=== PATIENT | male | born 1940 | race Caucasian/White ===

== ENCOUNTER 2016-03-17 00:38 | Inpatient (IN) | payer MEDICARE ==
[2016-03-17] MEDS ORDERED: PROPOFOL 100 ML IV PRN (00:42)
[2016-03-17] MEDS ORDERED: METHYLPREDNISOLONE INJ 125 MG/2 ML SDV IV ONE (00:42)
[2016-03-17] MEDS ORDERED: ALBUTEROL SULFATE 0.083% NEB 2.5 MG/3 ML AMPUL NEB ONE (00:43)
[2016-03-17] MEDS ORDERED: MAGNESIUM SULFATE/D5W 100 ML IV SCH (00:45)
[2016-03-17] MEDS ORDERED: PROPOFOL 100 ML IV ONE (00:45)
--- NOTE | 2016-03-17 00:53 | ER Document Report ---
ED General - General Stated Complaint: POST ARREST Notes: Patient is a 75 year old male who presents with complaint of possible cardiac arrest. Then he says that he was having some difficulty breathing. He then passed out and the chair. He then turned blue. Paramedics arrived. His pulse was very weak. He said at times it was not clear if he had just a very weak pulse or did not have a pulse. They therefore started CPR and started to oxygenate him. No epinephrine was given. Pulses regained after oxygenation and CPR. CPR was stopped. Patient was then intubated. Patient was given succinylcholine, Rocuronium, and ketamine for intubation. Family says that he had pneumonia 2 months ago. She's been having intermittent difficulty breathing. They said that: A once a week ago and he received a breathing treatment. He refused to come to loss. That time. He still smokes on occasion. He is on Eliquis. Family is unsure exactly why he is on Eliquis. He does have a pacemaker. Paramedics said that after they regained strong pulses he did have some purposeful movement. TRAVEL OUTSIDE OF THE [place] IN LAST 30 DAYS: No - Related Data Allergies/Adverse Reactions: lorazepam [From Ativan] Adverse Reaction (Verified 05/22/15 20:52) Past Medical History - Social History Smoking Status: Current Some Day Smoker Frequency of alcohol use: None Drug Abuse: None Family History: Reviewed & Not Pertinent - Past Medical History Cardiac Medical History: Reports: Hx Atrial Fibrillation, Hx Congestive Heart Failure, Hx Coronary Artery Disease, Hx Hypercholesterolemia, Hx Hypertension Denies: Hx Heart Attack, Hx Peripheral Vascular Disease, Hx Pulmonary Embolism, Hx Heart Murmur Pulmonary Medical History: Reports: Hx Bronchitis, Hx COPD - COPD, Hx Pneumonia Denies: Hx Asthma, Hx Respiratory Failure, Hx Sleep Apnea, Hx Tuberculosis Neurological Medical History: Reports: Hx Seizures - Last time 3 to 4 yrs ago. Denies: Hx Cerebrovascular Accident Endocrine Medical History: Reports: Hx Diabetes Mellitus Type 2 Renal/ Medical History: Reports: Hx Benign Prostatic Hyperplasia Malignancy Medical History: Denies Hx Lung Cancer GI Medical History: Reports: Hx Ulcer - age 30. Denies: Hx Crohn's Disease, Hx Gastroesophageal Reflux Disease, Hx Hiatal Hernia, Hx Irritable Bowel, Hx Liver Failure Musculoskeltal Medical History: Reports Hx Arthritis - All over, Denies Hx Fibromyalgia, Denies Hx Multiple Sclerosis, Denies Hx Muscular Dystrophy Psychiatric Medical History: Denies: Hx Bipolar Disorder, Hx Dementia, Hx Depression, Hx Post Traumatic Stress Disorder, Hx Schizophrenia Traumatic Medical History: Denies: Hx Fractures Infectious Medical History: Denies: Hx HIV Past Surgical History: Reports: Hx Adenoidectomy, Hx Cardiac Surgery - pacemaker defibulator, Hx Internal Defibrillator, Hx Orthopedic Surgery - right knee, left hip, Hx Pacemaker - See Pacemaker Checklist, Hx Tonsillectomy. Denies: Hx Appendectomy, Hx Bowel Surgery, Hx Cholecystectomy, Hx Colostomy, Hx Coronary Artery Bypass Graft, Hx Gastric Bypass Surgery, Hx Herniorrhaphy - Immunizations Hx Diphtheria, Pertussis, Tetanus Vaccination: No Hx Pneumococcal Vaccination: 11/22/14 Review of Systems - Review of Systems -: Yes ROS unobtainable due to patient's medical condition - Review systems is very limited due to patient being unresponsive Physical Exam - Vital signs Vitals: Pulse Ox 100 03/17/16 00:40 - Notes Notes: General Appearance: Well nourished, sedated and intubated. Vitals: reviewed, See vital signs table. Head: no swelling or tenderness to the head Eyes: PERRL, EOMI, Conjuctiva clear. Mouth: ET tube and oropharynx. Neck: Supple, no neck tenderness, No thyromegaly Lungs: Diffuse wheezing. Fair to poor air exchange. Heart: Tachycardic rate, Regular rythm, No murmur, no rub Abdomen: No abdominal distention or swelling. Extremities: good pulses in all extremities, no swelling or tenderness in the extremities, 1-2+ edema in bilateral lower extremities Skin: warm, dry, appropriate color, no rash Neuro: Patient sedated and recently paralyzed. Neuro exam is limited because of this. Pupils are equal and reactive to light. Course - Re-evaluation Re-evalutation: 03/17/16 00:56 Patient is initially hypotensive. Currently unresponsive but was recent paralyzed part around him so this is not surprising. I did propofol ordered but we will hold until blood pressures improved. I will give patient IV fluids. If his blood pressure does not improve with IV fluids than I will place central line and start on pressors. - Vital Signs Vital signs: Temp Pulse Resp BP Pulse Ox 95.2 F L 14 92/74 L 97 03/17/16 02:41 03/17/16 02:41 03/17/16 02:41 03/17/16 02:41 - Laboratory Result Diagrams: 03/17/16 00:45 03/17/16 00:45 Laboratory results interpreted by me: 03/17/16 03/17/16 03/17/16 00:45 00:45 00:45 RBC 4.19 L Hgb 12.6 L RDW 15.3 H Seg Neutrophils % 84.7 H Lymphocytes % 5.9 L Absolute Lymphocytes 0.4 L Carbonic Acid ABG pH ABG pCO2 ABG pO2 ABG HCO3 ABG Total CO2 ABG O2 Saturation Sodium 135.7 L Chloride 94 L BUN 40 H Glucose 172 H Calcium 8.1 L Total Bilirubin 1.7 H Alkaline Phosphatase 137 H CK-MB (CK-2) 4.87 H NT-Pro-B Natriuret Pep 6350 H Total Protein 5.9 L Albumin 3.1 L Urine Protein Urine Blood 03/17/16 03/17/16 00:45 01:30 RBC Hgb RDW Seg Neutrophils % Lymphocytes % Absolute Lymphocytes Carbonic Acid 2.43 H ABG pH 7.18 L* ABG pCO2 80.6 H* ABG pO2 421.1 H ABG HCO3 29.5 H ABG Total CO2 32.0 H ABG O2 Saturation 99.7 H Sodium Chloride BUN Glucose Calcium Total Bilirubin Alkaline Phosphatase CK-MB (CK-2) NT-Pro-B Natriuret Pep Total Protein Albumin Urine Protein 30 H Urine Blood LARGE H - EKG Interpretation by Me Additional EKG results interpreted by me: 03/17/16 01:29 EKG is reviewed and interpreted by me. EKG shows paced rhythm with rate of [address] segment changes. QS duration QTC intervals are prolonged. Old EKG from 05/22/2015. - Transfer of Care Notes: 03/17/16 04:56 These unlikely the patient completely lost pulses being that patient regained strong pulses after just mental ventilation and CPR. There is no epinephrine given. Senses the patient was going into respiratory arrest and was very hypoxic and probably had very weak pulses from that. She's on arrival did have tight and wheezing lungs. He still has some wheezing in his lungs but his lung auscultation is gradually improving. His blood pressure was initially hypotensive. He did receive 3 L of fluids. His blood pressure now has been in the upper 90s to low 100 systolic. I did speak with the hospitalist request a central line placement. I did place a central line. Family was initially bedside but then left. There is no one to consent for central line and therefore I and the nurse cosigned his consent as emergent informed consent being that the patient does require further vascular access and most likely will need pressors being that his blood pressure still very borderline and we will have to start him on sedation because he started to wake up. The sedation was likely will start to drop his blood pressure and therefore we need access to be able start pressors when that most likely does occur. Dictation of this chart was performed using voice recognition software; therefore, there may be some unintended grammatical errors. Procedures - Central Line Right Internal jugular Consent obtained: Yes - INformed consent. No family currently present Central line pre-insertion: Chloraprep applied Central line lumen type: Triple Ultrasound guided: Yes CM at insertion site: 15 Line secured with sutures: Yes Central line post-insertion: Blood return from lumens, Biopatch applied, Sutured , Sterile dressing applied, Position confirmed w/ CXR Number of attempts: 1 Complications: No Notes: 03/17/16 04:56 Line placed under ultrasound guidance. Critical Care Note - Critical Care Note Total time excluding time spent on procedures (mins): 45 Comments: Critical care time spent on this patient is approximately 45 minutes due to frequent evaluations, discussion with hospice, discussions with family, management of sedation, management of blood pressure. This does not include time spent on procedures. Discharge - Discharge Clinical Impression: Respiratory arrest, COPD exacerbation, Hypotension Disposition: ADMITTED INPATIENT Admitting Provider: Hospitalist Unit Admitted: ICU
[2016-03-17 01:06] LABS: ABSOLUTE EOSINOPHILS # (AUTO) 0.1 10^3/uL (0.0-0.6); ABSOLUTE LYMPHOCYTES (AUTO) 0.4 10^3/uL (0.5-4.7); ABSOLUTE MONOCYTES (AUTO) 0.4 10^3/uL (0.1-1.4); ABSOLUTE NEUT (AUTO) 5.4 10^3/uL (1.7-8.2); ARTERIAL BLOOD BASE EXCESS -0.9 mmol/L; ARTERIAL BLOOD O2 SATURATION 99.7 % (94-98); BASOPHILS % (AUTO) 0.7 % (0-2); EOSINOPHILS % (AUTO) 1.9 % (0-6); HEMATOCRIT 39.4 % (37.9-51.0); HEMOGLOBIN 12.6 g/dL (13.5-17.0); HGB HCT DIFFERENCE -1.6; LYMPHOCYTES % (AUTO) 5.9 % (13-45); MEAN CORPUSCULAR HEMOGLOBIN 30.1 pg (27.0-33.4); MEAN CORPUSCULAR HGB CONC 32.1 g/dL (32.0-36.0); MEAN CORPUSCULAR VOLUME 94 fl (80-97); MONOCYTES % (AUTO) 6.8 % (3-13); RED BLOOD COUNT 4.19 10^6/uL (4.35-5.55); RED CELL DISTRIBUTION WIDTH 15.3 % (11.5-14.0); SEGMENTED NEUTROPHILS % (AUTO) 84.7 % (42-78); WHITE BLOOD COUNT 6.4 10^3/uL (4.0-10.5)
[2016-03-17] MEDS: NORMAL SALINE 1000 ML 1,000 ML IV PRN ×2 (01:15→06:50)
[2016-03-17 01:20] LABS: ALANINE AMINOTRANSFERASE 29 U/L (21-72); ALBUMIN 3.1 g/dL (3.5-5.0); ALKALINE PHOSPHATASE 137 U/L (38-126); ANION GAP 12 (5-19); ASPARTATE AMINO TRANSFERASE 31 U/L (17-59); BILIRUBIN,TOTAL 1.7 mg/dL (0.2-1.3); BLOOD UREA NITROGEN 40 mg/dL (7-20); CALCIUM 8.1 mg/dL (8.4-10.2); CARBON DIOXIDE 30 mmol/L (22-30); CHLORIDE 94 mmol/L (98-107); CREATINE KINASE 104 U/L (55-170); CREATININE RESULT 1.12 mg/dL (0.52-1.25); GLUCOSE 172 mg/dL (75-110); POTASSIUM 4.7 mmol/L (3.6-5.0); SODIUM 135.7 mmol/L (137-145); TOTAL PROTEIN 5.9 g/dL (6.3-8.2)
[2016-03-17 01:33] LABS: CREATINE KINASE MB 4.87 ng/mL (<4.55)
[2016-03-17 01:38] LABS: TROPONIN I 0.04 ng/mL
[2016-03-17 01:59] LABS: APPEARANCE,URINE SLIGHTLY-CLOUDY; BILIRUBIN,URINE NEGATIVE (NEGATIVE); GLUCOSE, URINE NEGATIVE (NEGATIVE); KETONES,URINE NEGATIVE (NEGATIVE); LEUKOCYTE ESTERASE,URINE NEGATIVE (NEGATIVE); NITRITE,URINE NEGATIVE (NEGATIVE); PROTEIN,URINE 30 mg/dL (NEGATIVE); URINE SPECIFIC GRAVITY 1.011; UROBILINOGEN,URINE NEGATIVE mg/dL (<2.0)
[2016-03-17 05:12] LABS: ARTERIAL BLOOD BASE EXCESS -1.9 mmol/L; ARTERIAL BLOOD O2 SATURATION 87.9 % (94-98)
[2016-03-17] MEDS ORDERED: ACETAMINOPHEN 325 MG TABLET NG PRN (05:22)
[2016-03-17] MEDS ORDERED: IPRATROPIUM/ALBUTEROL 0.5-2.5 MG/3 ML AMPUL NEB ONE ×2 (05:28→05:30)
[2016-03-17] MEDS ORDERED: DEXTROSE 5%-WATER 250 ML with PHENYLEPHRINE HCL 40 MG IV PRN ×2 (05:30)
[2016-03-17 05:58] LABS: URINE BARBITURATES SCREEN NEGATIVE; URINE METHADONE SCREEN NEGATIVE; URINE PHENCYCLIDINE SCREEN NEGATIVE
[2016-03-17] MEDS ORDERED: MAGNESIUM SULFATE/D5W 1 GM/100 ML RTUPB IV ONE (06:09)
[2016-03-17 06:13] LABS: HEMATOCRIT 42.1 % (37.9-51.0); HEMOGLOBIN 13.4 g/dL (13.5-17.0); HGB HCT DIFFERENCE -1.9; MEAN CORPUSCULAR HEMOGLOBIN 30.3 pg (27.0-33.4); MEAN CORPUSCULAR HGB CONC 31.9 g/dL (32.0-36.0); MEAN CORPUSCULAR VOLUME 95 fl (80-97); RED BLOOD COUNT 4.44 10^6/uL (4.35-5.55); RED CELL DISTRIBUTION WIDTH 15.6 % (11.5-14.0); WHITE BLOOD COUNT 10.4 10^3/uL (4.0-10.5)
[2016-03-17] MEDS ORDERED: VANCOMYCIN HCL 0 MG in DEXTROSE 5%-WATER 250 ML IV NR (06:30)
[2016-03-17 06:35] LABS: CREATINE KINASE MB 5.84 ng/mL (<4.55); TROPONIN I 0.056 ng/mL
--- NOTE | 2016-03-17 06:50 | PDOC H&P ---
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 fib on Eliquis, type II diabetes and dyslipidemia. Who is noted by family members to have an abrupt loss of consciousness and possible cardiac arrest initiating CPR and calling EMS who found him with a weak pulse she was intubated and an IV catheter in the left leg placed. Then brought to the emergency room with cyanosis, hypotension 70/50 and hypothermia 95.5 but requiring 100% FiO2 satting 90%. Imaging reveals lifelines in place including a right IJ and ABG reveals respiratory acidosis and hypoxia he is referred to the hospitalist for admission for acute renal failure. Past Medical History Cardiac Medical History: Reports: Atrial Fibrillation, Congestive Heart Failure , Coronary Artery Disease, Hyperlipidema, Hypertension Denies: Myocardial Infarction, Peripheral Vascular Disease, Pulmonary Embolism, Heart Murmur Pulmonary Medical History: Reports: Bronchitis, Chronic Obstructive Pulmonary Disease (COPD) - COPD, Pneumonia Denies: Asthma, Respiratory Failure, Sleep Apnea, Tuberculosis Neurological Medical History: Reports: Seizures - Last time 3 to 4 yrs ago Endocrine Medical History: Reports: Diabetes Mellitus Type 2 Renal/ Medical History: Malignancy Medical History: Denies: Lung Cancer GI Medical History: Denies: Crohn's Disease, Gastroesophageal Reflux Disease, Hiatal Hernia Musculoskeltal Medical History: Reports: Arthritis - All over Denies: Fibromyalgia Psychiatric Medical History: Denies: Bipolar Disorder, Dementia, Depression, Post Traumatic Stress Disorder Hematology: Denies: Anemia Infectious Medical History: Denies: HIV Past Surgical History Past Surgical History: Reports: Internal Defibrillator, Orthopedic Surgery - right knee, left hip, Pacemaker - See Pacemaker Checklist, Tonsillectomy Denies: Appendectomy, Cholecystectomy, Colostomy, Coronary Artery Bypass Graft, Gastric Bypass Surgery, Herniorrhaphy Social History Information Source: [facility] Records Lives with: Family Smoking Status: Current Some Day Smoker Frequency of Alcohol Use: None Hx Recreational Drug Use: No Hx Prescription Drug Abuse: No - Advance Directive Resuscitation Status: Full Code Family History Family History: CAD, COPD Parental Family History Reviewed: Yes Children Family History Reviewed: Yes Sibling(s) Family History Reviewed.: Yes Medication/Allergy Home Medications: Tamsulosin HCl [Flomax] 0.4 mg PO QPM 01/09/15 Ferrous Sulfate [Feosol 325 mg Tablet] 325 mg PO DAILY #30 tablet 01/13/15 Aspirin [Aspirin EC] 81 mg PO DAILY 05/12/15 Fenofibrate [Lofibra] 54 mg PO DAILY 05/12/15 Pantoprazole Sodium 40 mg PO DAILY 05/12/15 Digoxin [Lanoxin 0.125 mg Tablet] 0.125 mg PO DAILY #30 tablet 06/02/15 Metoprolol Succinate [Toprol Xl 25 mg Tab.sr] 25 mg PO DAILY #30 tab.sr.24h 12/07 Midodrine HCl [Proamatine 5 mg Tablet] 10 mg PO TID #90 tablet 06/02/15 Lisinopril [Prinivil 5 mg Tablet] 2.5 mg PO DAILY #60 tablet 06/04/15 Eplerenone [Inspra 25 mg Tablet] 25 mg PO BID 09/12/15 Potassium Chloride [Klor-Con 10 Meq Tablet.sa] 10 meq PO Q12 09/12/15 Torsemide [Demadex 20 mg Tablet] 20 mg PO BID 09/12/15 Warfarin Sodium [Coumadin 3 mg Tablet] 3 mg PO ASDIR PRN 09/12/15 Allergies/Adverse Reactions: lorazepam [From Ativan] Adverse Reaction (Verified 05/22/15 20:52) Review of Systems ROS unobtainable: Due to mental status Physical Exam Vital Signs: Temp Pulse Resp BP Pulse Ox 96.0 F L 16 105/71 97 03/17/16 05:31 03/17/16 05:31 03/17/16 05:31 03/17/16 05:31 General appearance: PRESENT: no acute distress, other - Intubated and sedated appearing comfortable intermittently moving all 4 extremities Head exam: PRESENT: atraumatic, normocephalic Eye exam: PRESENT: conjunctiva pink, EOMI, PERRLA. ABSENT: scleral icterus Ear exam: PRESENT: normal external ear exam Mouth exam: PRESENT: dry mucosa, laceration - Saloni laceration of tongue sustained and intubation estimated blood loss 100 mL, tongue midline Neck exam: ABSENT: carotid bruit, JVD, lymphadenopathy, thyromegaly Respiratory exam: PRESENT: accessory muscle use, crackles, decreased breath sounds, prolonged expiratory phas, other - Aspiration of ETT tube of lim material Cardiovascular exam: PRESENT: RRR. ABSENT: diastolic murmur, rubs, systolic murmur Pulses: PRESENT: other - Cyanotic Vascular exam: PRESENT: other - Cyanosis of the extremities GI/Abdominal exam: PRESENT: distended, hypoactive bowel sounds, normal bowel sounds, soft. ABSENT: guarding, mass, organolmegaly, rebound, tenderness Rectal exam: PRESENT: deferred Extremities exam: PRESENT: full ROM, other - Chronic changes of peripheral vascular disease. ABSENT: calf tenderness, clubbing, pedal edema Neurological exam: PRESENT: other - Intubated and sedated Psychiatric exam: PRESENT: appropriate affect, normal mood. ABSENT: homicidal ideation, suicidal ideation Skin exam: PRESENT: dry, warm, other - Skin tears to the hands bilaterally, IO on the left leg. ABSENT: cyanosis, rash Results Laboratory Results: 03/17/16 06:00 03/17/16 06:00 WBC 10.4 RBC 4.44 Hgb 13.4 L Hct 42.1 MCV 95 MCH 30.3 MCHC 31.9 L RDW 15.6 H Plt Count 205 03/17/16 06:00 Creatine Kinase 101 Impressions: Chest X-Ray 03/17/16 04:16 IMPRESSION: Small right lower lobar opacity. Interval worsening. 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 - Time Time Spent: Greater than 70 Minutes
[2016-03-17 06:53] LABS: PROTHROMBIN TIME 24.3 SEC (11.4-15.4)
[2016-03-17] MEDS ORDERED: PHENYLEPHRINE HCL INJ/PF 10 MG/1 ML SDV ONE (07:49)
[2016-03-17] MEDS: IPRATROPIUM/ALBUTEROL 0.5-2.5 MG/3 ML AMPUL NEB SCH ×3 (08:13→20:04)
[2016-03-17] MEDS ORDERED: VANCOMYCIN HCL 1,000 MG in DEXTROSE 5%-WATER 250 ML IV ONE (09:00)
[2016-03-17] MEDS ORDERED: MIDAZOLAM HCL 100 ML IV ONE (09:41)
[2016-03-17] MEDS ORDERED: DOCUSATE SODIUM 100 MG/10 ML UDC NG SCH (10:00)
[2016-03-17] MEDS ORDERED: FENOFIBRATE 54 MG NG SCH (10:00)
[2016-03-17] MEDS ORDERED: FERROUS SULFATE 325 MG TABLET PO SCH (10:00)
[2016-03-17] MEDS: LANSOPRAZOLE 30 MG TAB.RAP.DR NG SCH ×2 (10:11→17:25)
[2016-03-17] MEDS ORDERED: MIDAZOLAM HCL 100 ML IV PRN (10:20)
[2016-03-17] MEDS: ASPIRIN 81 MG TABLET, ENT COATED PO SCH (10:24)
[2016-03-17] MEDS: METHYLPREDNISOLONE INJ 125 MG/2 ML SDV IV SCH ×2 (10:24→17:25)
[2016-03-17] MEDS: DOCUSATE SODIUM 100 MG CAPSULE PO SCH ×2 (10:24→17:26)
[2016-03-17] MEDS: DIGOXIN 0.125 MG TABLET PO SCH (10:24)
[2016-03-17] MEDS: LEVOFLOXACIN 750 MG/D5W RTU 750 MG/150 ML RTUPB IV SCH (10:25)
[2016-03-17] MEDS: HEPARIN SOD (PORCINE) 5,000 UNIT/ML 1 ML SYRINGE SUBCUT SCH ×2 (10:25→17:25)
[2016-03-17] MEDS: EPLERENONE 25 MG TABLET NG SCH ×2 (10:34→17:26)
[2016-03-17] MEDS: FERROUS SULFATE LIQUID 300 MG/5 ML UDC NG SCH (10:34)
--- NOTE | 2016-03-17 11:44 | EKG REPORT ---
SEVERITY:- ABNORMAL ECG - VENTRICULAR-PACED RHYTHM : Confirmed by: Jennifer Duvall MD 17-Mar-2016 11:44:13
--- NOTE | 2016-03-17 13:10 | PDOC CONSULTATION ---
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 fib on Eliquis, type II diabetes and dyslipidemia. Who is noted by family members to have an abrupt loss of consciousness and possible cardiac arrest initiating CPR and calling EMS who found him with a weak pulse. Patient was intubated and an IV catheter in the left leg placed. Then brought to the emergency room with cyanosis, hypotension 70/50 and hypothermia 95.5 but requiring 100% FiO2 satting 90%. Imaging reveals lifelines in place including a right IJ and ABG reveals respiratory acidosis and hypoxia he is referred to the hospitalist for admission for acute renal failure. This history was reviewed. It seems patient was found unresponsive at home. Past Medical History Cardiac Medical History: Reports: Atrial Fibrillation, Congestive Heart Failure , Coronary Artery Disease, Hyperlipidema, Hypertension Denies: Myocardial Infarction, Peripheral Vascular Disease, Pulmonary Embolism, Heart Murmur Pulmonary Medical History: Reports: Bronchitis, Chronic Obstructive Pulmonary Disease (COPD) - COPD, Pneumonia Denies: Asthma, Respiratory Failure, Sleep Apnea, Tuberculosis Neurological Medical History: Reports: Seizures - Last time 3 to 4 yrs ago Endocrine Medical History: Reports: Diabetes Mellitus Type 2 Renal/ Medical History: Malignancy Medical History: Denies: Lung Cancer GI Medical History: Denies: Crohn's Disease, Gastroesophageal Reflux Disease, Hiatal Hernia Musculoskeltal Medical History: Reports: Arthritis - All over Denies: Fibromyalgia Psychiatric Medical History: Denies: Bipolar Disorder, Dementia, Depression, Post Traumatic Stress Disorder Hematology: Denies: Anemia Infectious Medical History: Denies: HIV Past Surgical History Past Surgical History: Reports: Internal Defibrillator, Orthopedic Surgery - right knee, left hip, Pacemaker - See Pacemaker Checklist, Tonsillectomy Denies: Appendectomy, Cholecystectomy, Colostomy, Coronary Artery Bypass Graft, Gastric Bypass Surgery, Herniorrhaphy Social History Information Source: Relative Lives with: Family Smoking Status: Current Some Day Smoker Frequency of Alcohol Use: None Hx Recreational Drug Use: No Drugs: None Hx Prescription Drug Abuse: No - Advance Directive Resuscitation Status: Full Code Family History Family History: CAD, COPD Parental Family History Reviewed: Yes Children Family History Reviewed: Yes Sibling(s) Family History Reviewed.: Yes - Negative for premature coronary artery disease or sudden cardiac in the family amongst first degree relatives. Medication/Allergy Home Medications: Tamsulosin HCl [Flomax] 0.4 mg PO QPM 01/09/15 Ferrous Sulfate [Feosol 325 mg Tablet] 325 mg PO DAILY #30 tablet 01/13/15 Aspirin [Aspirin EC] 81 mg PO DAILY 05/12/15 Fenofibrate [Lofibra] 54 mg PO DAILY 05/12/15 Pantoprazole Sodium 40 mg PO DAILY 05/12/15 Digoxin [Lanoxin 0.125 mg Tablet] 0.125 mg PO DAILY #30 tablet 06/02/15 Midodrine HCl [Proamatine 5 mg Tablet] 10 mg PO TID #90 tablet 06/02/15 Lisinopril [Prinivil 5 mg Tablet] 2.5 mg PO DAILY #60 tablet 06/04/15 Eplerenone [Inspra 25 mg Tablet] 25 mg PO BID 09/12/15 Potassium Chloride [Klor-Con 10 Meq Tablet.sa] 20 meq PO Q12 09/12/15 Apixaban [Eliquis 5 mg Tablet] 5 mg PO BID 03/17/16 Budesonide/Formoterol Fumarate [Symbicort Hfa 80-4.5 Mcg Inhaler 6.9 gm] 2 puff IH BID 03/17/16 Furosemide [Lasix] 40 mg PO QPM 03/17/16 Furosemide [Lasix] 60 mg PO QAM 03/17/16 Gabapentin [Neurontin 300 mg Capsule] 300 mg PO Q8 03/17/16 Metoprolol Succinate 12.5 mg PO DAILY 03/17/16 Allergies/Adverse Reactions: lorazepam [From Ativan] Adverse Reaction (Verified 05/22/15 20:52) Review of Systems ROS unobtainable: Due to endotracheal tube Physical Exam Vital Signs: Temp Pulse Resp BP Pulse Ox 97.5 F 71 14 97/64 L 97 03/17/16 08:00 03/17/16 10:00 03/17/16 10:00 03/17/16 10:00 03/17/16 10:00 Intake & Output 0103/17/16 03/18/16 06:59 06:59 06:59 Output Total 225 Balance -225 Weight 104.8 kg 107.3 kg Exam: GENERAL: well-nourished and in no acute distress. Patient is intubated and sedated. Orientation cannot be checked HEAD: Atraumatic, normocephalic. EYES: Pupils equal round and reactive to light, extraocular movements could not be checked, sclera anicteric, conjunctiva are normal. ENT: TMs normal, nares patent, oropharynx clear without exudates. Moist mucous membranes. No oral ulcerations or bleeding gums noted NECK: supple without lymphadenopathy or JVD. Trachea is central. No cervical or axillary lymphadenopathy noted. Carotids are 2+ LUNGS: Breath sounds mostly clear to auscultation patient is noted to have bibasal crackles at the extreme bases CHEST: Palpation of the chest wall shows no significant chest wall tenderness or abnormalities. HEART: [place] [employer], No PSH, 2/6 CHEO aortic area, 1/6 carrasco systolic murmur mitral area , no rubs or gallops. ABDOMEN: Soft, no significant tenderness appreciated, normoactive bowel sounds. No guarding, no rebound. No rigidity noted . No masses appreciated. Abdominal wall swelling and some erythematous changes noted indicative of low-grade cellulitis. EXTREMITIES: Pedal pulses are 1-2+, no calf tenderness noted, 1+ pedal edema noted. No clubbing or cyanosis. NEUROLOGICAL: The patient cannot participate in the neurological exam but no facial asymmetry noted. Extremities slightly hypotonic PSYCH: This cannot be evaluated. Patient cannot participate. SKIN: No significant ecchymosis, rash, or signs of pruritus noted. MUSCULOSKELETAL EXAM: No significant joint swelling noted. Patient cannot participate in musculoskeletal exam Results Laboratory Results: 03/17/16 06:00 03/17/16 03/17/16 06:00 06:00 WBC 10.4 Cancelled RBC 4.44 Cancelled Hgb 13.4 L Cancelled Hct 42.1 Cancelled MCV 95 Cancelled MCH 30.3 Cancelled MCHC 31.9 L Cancelled RDW 15.6 H Cancelled Plt Count 205 Cancelled 03/17/16 03/17/16 06:00 06:00 Creatine Kinase 101 CK-MB (CK-2) 5.84 H Troponin I 0.056 Impressions: Chest X-Ray 03/17/16 04:16 IMPRESSION: Small right lower lobar opacity. Interval worsening. Assessment & Plan - Diagnosis (1) Hypotension Qualifiers: Hypotension type: unspecified hypotension type Qualified Code(s): I95.9 - Hypotension, unspecified Is this a current diagnosis for this admission?: YesPlan: Possibly related to sepsis, sedation, in addition to complement of low cardiac output from severe dilated cardiomyopathy. It may be worthwhile to consider switching from [place]-Synephrine/levo to dopamine. Chest x-ray did not show any evidence of pulmonary congestion therefore may consider cautious fluid challenges. (2) Respiratory arrest Is this a current diagnosis for this admission?: YesPlan: Patient noted to have severe respiratory acidosis exact etiology not clear. Possibly related to COPD, respiratory depression from other causes. Continue ventilatory management. (3) ARF (acute renal failure) Qualifiers: Acute renal failure type: unspecified Qualified Code(s): N17.9 - Acute kidney failure, unspecified Is this a current diagnosis for this admission?: YesPlan: Patient noted to have poor urine output. Continue to monitor this. (4) Coronary artery disease Qualifiers: Coronary Disease-Associated Artery/Lesion type: [place] artery Associated angina: angina presence unspecified Is this a current diagnosis for this admission?: YesPlan: Currently cardiac enzymes are negative. Will follow patient very closely. (5) COPD exacerbation Is this a current diagnosis for this admission?: Yes (6) History of implantable cardioverter-defibrillator (ICD) placement Is this a current diagnosis for this admission?: Yes (7) CHF (congestive heart failure) Qualifiers: Congestive heart failure type: combined Congestive heart failure chronicity: chronic Qualified Code(s): I50.42 - Chronic combined systolic (congestive) and diastolic (congestive) heart failure Is this a current diagnosis for this admission?: Yes - Notes Notes: Hypotension: Patient on vasopressor. Recommend switch over to initially low dose dopamine at 2.5 g daily per minute. This may be escalated as needed to maintain mean blood pressure above 65 mmHg. Recommend cautious fluid challenges. Respiratory arrest with severe hypercarbia and hypercapnia. Patient currently intubated. Patient needs continued ventilatory support. Acute renal failure: Patient's urine output has been low. Will monitor it closely. May consider nephrology consultation. Coronary artery disease: Currently stable. Initial Cardiac enzymes are negative. Cardiomyopathy: Patient has severe dilated cardiomyopathy. Will consider repeating an echo. Congestive heart failure: Patient has a history of it but currently seems euvolemic. Will restart diuretics. Chronic anticoagulation: Patient started back on Xarelto. COPD: Patient has respiratory failure from COPD exacerbation. Suspected pneumonia: Continue antibiotic therapy. CODE STATUS was discussed, patient remains full code. Surrogate decision-maker patient's children. Multiple medical problems were addressed. - Time Time Spent: 50 to 70 Minutes - More than 50% of the time spent coordinating care , discussing management plans with involved caregivers. Management plans discussed with involved personnels. Medical decision making was of severe complexity. Medications reviewed and adjusted accordingly: Yes
[2016-03-17 13:32] LABS: ARTERIAL BLOOD BASE EXCESS 0 mmol/L; ARTERIAL BLOOD O2 SATURATION 91.6 % (94-98)
[2016-03-17] MEDS ORDERED: DOPAMINE HCL/DEXTROSE 5%-WATER 800 MG/250 ML RTUINJ IV ONE (13:53)
[2016-03-17] MEDS: DOPAMINE HCL/DEXTROSE 5%-WATER 800 MG/250 ML RTUINJ IV PRN (14:16)
[2016-03-17] MEDS: MIDODRINE HCL 5 MG TABLET NG SCH ×2 (14:18→17:25)
[2016-03-17] MEDS: CLINDAMYCIN 600 MG/D5W RTU 50 ML IV SCH ×2 (14:18→21:28)
[2016-03-17 14:41] LABS: CREATINE KINASE MB 4.99 ng/mL (<4.55); TROPONIN I 0.041 ng/mL
[2016-03-17] MEDS: PROPOFOL 100 ML IV PRN ×3 (16:09→22:40)
[2016-03-17] MEDS: FENOFIBRATE NANOCRYSTALLIZED 48 MG TABLET NG SCH (17:25)
[2016-03-17] MEDS: VANCOMYCIN HCL 1,500 MG in DEXTROSE 5%-WATER 250 ML IV SCH (19:25)
[2016-03-17 19:39] LABS: CREATINE KINASE MB 3.77 ng/mL (<4.55)
[2016-03-17 19:50] LABS: TROPONIN I 0.036 ng/mL
[2016-03-17] MEDS ORDERED: WARFARIN SODIUM 2.5 MG TABLET NG SCH (22:00)
[2016-03-18] MEDS: HEPARIN SOD (PORCINE) 5,000 UNIT/ML 1 ML SYRINGE SUBCUT SCH ×2 (01:14→09:55)
[2016-03-18] MEDS: METHYLPREDNISOLONE INJ 125 MG/2 ML SDV IV SCH ×3 (01:14→17:37)
[2016-03-18] MEDS: IPRATROPIUM/ALBUTEROL 0.5-2.5 MG/3 ML AMPUL NEB SCH ×4 (01:33→20:57)
[2016-03-18] MEDS: PROPOFOL 100 ML IV PRN ×4 (02:56→23:01)
[2016-03-18] MEDS: CLINDAMYCIN 600 MG/D5W RTU 50 ML IV SCH ×3 (05:17→21:28)
[2016-03-18] MEDS: LANSOPRAZOLE 30 MG TAB.RAP.DR NG SCH ×2 (05:17→17:35)
[2016-03-18] MEDS: NORMAL SALINE 1000 ML 1,000 ML IV PRN ×2 (05:18→20:08)
[2016-03-18 05:45] LABS: ARTERIAL BLOOD BASE EXCESS 0.1 mmol/L; ARTERIAL BLOOD O2 SATURATION 96.8 % (94-98)
[2016-03-18 05:46] LABS: HEMATOCRIT 43.3 % (37.9-51.0); HEMOGLOBIN 13.8 g/dL (13.5-17.0); HGB HCT DIFFERENCE -1.9; MEAN CORPUSCULAR HEMOGLOBIN 29.6 pg (27.0-33.4); MEAN CORPUSCULAR HGB CONC 31.8 g/dL (32.0-36.0); MEAN CORPUSCULAR VOLUME 93 fl (80-97); RED BLOOD COUNT 4.66 10^6/uL (4.35-5.55); RED CELL DISTRIBUTION WIDTH 15.6 % (11.5-14.0); WHITE BLOOD COUNT 7.2 10^3/uL (4.0-10.5)
[2016-03-18 05:50] LABS: APPEARANCE,URINE SLIGHTLY-CLOUDY; BILIRUBIN,URINE NEGATIVE (NEGATIVE); GLUCOSE, URINE NEGATIVE (NEGATIVE); KETONES,URINE TRACE mg/dL (NEGATIVE); LEUKOCYTE ESTERASE,URINE NEGATIVE (NEGATIVE); NITRITE,URINE NEGATIVE (NEGATIVE); PROTEIN,URINE 30 mg/dL (NEGATIVE); PROTHROMBIN TIME 21.3 SEC (11.4-15.4); URINE SPECIFIC GRAVITY 1.013; UROBILINOGEN,URINE NEGATIVE mg/dL (<2.0)
[2016-03-18 05:59] LABS: ALANINE AMINOTRANSFERASE 33 U/L (21-72); ALBUMIN 3.5 g/dL (3.5-5.0); ALKALINE PHOSPHATASE 142 U/L (38-126); ANION GAP 10 (5-19); ASPARTATE AMINO TRANSFERASE 22 U/L (17-59); BILIRUBIN,DIRECT 0.2 mg/dL (0.0-0.3); BILIRUBIN,TOTAL 1.7 mg/dL (0.2-1.3); BLOOD UREA NITROGEN 39 mg/dL (7-20); CALCIUM 8.9 mg/dL (8.4-10.2); CARBON DIOXIDE 28 mmol/L (22-30); CHLORIDE 97 mmol/L (98-107); CREATININE RESULT 1.12 mg/dL (0.52-1.25); GLUCOSE 156 mg/dL (75-110); MAGNESIUM 2.3 mg/dL (1.6-2.3); POTASSIUM 4.9 mmol/L (3.6-5.0); SODIUM 135.4 mmol/L (137-145); TOTAL PROTEIN 6.2 g/dL (6.3-8.2); TRIGLYCERIDES 60 mg/dL (<150)
[2016-03-18 06:15] LABS: BASOPHILS % (MANUAL) 0 % (0-2); EOSINOPHILS % (MANUAL) 0 % (0-6); LYMPHOCYTES % (MANUAL) 2 % (13-45); TOTAL CELLS COUNTED 100
[2016-03-18 06:17] LABS: ANISOCYTOSIS SLIGHT; TOXIC GRANULATION SLIGHT
[2016-03-18] MEDS: VANCOMYCIN HCL 1,500 MG in DEXTROSE 5%-WATER 250 ML IV SCH ×2 (07:58→20:10)
[2016-03-18] MEDS: LEVOFLOXACIN 750 MG/D5W RTU 750 MG/150 ML RTUPB IV SCH (09:52)
[2016-03-18] MEDS: DIGOXIN 0.125 MG TABLET PO SCH (09:52)
[2016-03-18] MEDS: ASPIRIN 81 MG TABLET, ENT COATED PO SCH (09:52)
[2016-03-18] MEDS: DOCUSATE SODIUM 100 MG CAPSULE PO SCH ×2 (09:52→17:37)
[2016-03-18] MEDS: EPLERENONE 25 MG TABLET NG SCH ×2 (09:53→17:35)
[2016-03-18] MEDS: FERROUS SULFATE LIQUID 300 MG/5 ML UDC NG SCH (09:54)
[2016-03-18] MEDS: MIDODRINE HCL 5 MG TABLET NG SCH ×3 (09:55→17:35)
--- NOTE | 2016-03-18 10:03 | PDOC PROGRESS REPORT ---
Subjective Progress Note for:: 03/18/16 Subjective:: Patient on the ventilator. Intubated. Vasopressor shifted to dopamine. On Versed drip. Patient on Diprivan. Urine output positive balance all 1800 mL. No reported temperature spikes, nor diarrhea. Chest x-ray shows improvement of infiltrate. Physical Exam Vital Signs: Temp Pulse Resp BP Pulse Ox 98.0 F 72 27 H 113/63 94 03/18/16 08:00 03/18/16 08:00 03/18/16 08:00 03/18/16 08:00 03/18/16 08:00 Intake & Output 03/17/16 03/18/16 03/19/16 06:59 06:59 06:59 Intake Total 3342 Output Total 1525 125 Balance 1817 -125 Weight 104.8 kg 107.1 kg General appearance: PRESENT: no acute distress, other - Sedated and intubated Head exam: PRESENT: normocephalic Eye exam: PRESENT: conjunctiva pale Mouth exam: PRESENT: moist, neck supple Neck exam: ABSENT: JVD Respiratory exam: PRESENT: rhonchi - Few bilateral, unlabored. ABSENT: wheezes Cardiovascular exam: PRESENT: irregular rhythm. ABSENT: gallop GI/Abdominal exam: PRESENT: hypoactive bowel sounds, soft, other - Obese Extremities exam: PRESENT: +1 edema - Bilateral upper extremity, +2 edema - Bilateral lower extremity Neurological exam: PRESENT: altered - Sedated Psychiatric exam: ABSENT: agitated Skin exam: PRESENT: dry, warm. ABSENT: cyanosis Results Laboratory Results: 03/18/16 05:14 03/18/16 05:14 03/17/16 03/18/16 03/18/16 13:18 05:14 05:14 WBC 7.2 RBC 4.66 Hgb 13.8 Hct 43.3 MCV 93 MCH 29.6 MCHC 31.8 L RDW 15.6 H Plt Count 209 Seg Neutrophils % Not Reportable Lymphocytes % Not Reportable Monocytes % Not Reportable Eosinophils % Not Reportable Basophils % Not Reportable Absolute Neutrophils Not Reportable Absolute Lymphocytes Not Reportable Absolute Monocytes Not Reportable Absolute Eosinophils Not Reportable Absolute Basophils Not Reportable Carbonic Acid 1.52 H HCO3/H2CO3 Ratio 17:1 ABG pH 7.34 L ABG pCO2 50.5 H ABG pO2 65.7 L ABG HCO3 26.5 H ABG O2 Saturation 91.6 L ABG Base Excess 0 FiO2 55% Sodium Potassium Chloride Carbon Dioxide Anion Gap BUN Creatinine Est GFR ( Amer) Est GFR (Non-Af Amer) Glucose Calcium Magnesium Total Bilirubin AST ALT Alkaline Phosphatase Total Protein Albumin Triglycerides Urine Color YELLOW Urine Appearance SLIGHTLY-CLOUDY Urine pH 5.0 Ur Specific [place] 1.013 Urine Protein 30 H Urine Glucose (UA) NEGATIVE Urine Ketones TRACE H Urine Blood LARGE H Urine Nitrite NEGATIVE Ur Leukocyte Esterase NEGATIVE Urine WBC (Auto) 97 Urine RBC (Auto) 43 03/18/16 03/18/16 05:14 05:14 WBC RBC Hgb Hct MCV MCH MCHC RDW Plt Count Seg Neutrophils % Lymphocytes % Monocytes % Eosinophils % Basophils % Absolute Neutrophils Absolute Lymphocytes Absolute Monocytes Absolute Eosinophils Absolute Basophils Carbonic Acid 1.38 H HCO3/H2CO3 Ratio 18:1 ABG pH 7.37 ABG pCO2 45.9 H ABG pO2 92.5 ABG HCO3 25.8 ABG O2 Saturation 96.8 ABG Base Excess 0.1 FiO2 55% Sodium 135.4 L Potassium 4.9 Chloride 97 L Carbon Dioxide 28 Anion Gap 10 BUN 39 H Creatinine 1.12 Est GFR ( Amer) > 60 Est GFR (Non-Af Amer) > 60 Glucose 156 H Calcium 8.9 Magnesium 2.3 Total Bilirubin 1.7 H AST 22 ALT 33 Alkaline Phosphatase 142 H Total Protein 6.2 L Albumin 3.5 Triglycerides 60 Urine Color Urine Appearance Urine pH Ur Specific [place] Urine Protein Urine Glucose (UA) Urine Ketones Urine Blood Urine Nitrite Ur Leukocyte Esterase Urine WBC (Auto) Urine RBC (Auto) 03/17/16 03/17/16 03/17/16 06:00 06:00 13:35 Creatine Kinase 101 91 CK-MB (CK-2) 5.84 H Troponin I 0.056 03/17/16 03/17/16 03/17/16 13:35 19:05 19:05 Creatine Kinase 65 CK-MB (CK-2) 4.99 H 3.77 Troponin I 0.041 0.036 Impressions: Chest X-Ray 03/18/16 06:00 IMPRESSION: Interval improvement in the right basilar density. Other findings as noted above Assessment & Plan - Time Time Spent with patient: 25-34 minutes - Plan Summary Plan Summary: We will start the patient on intravenous Lasix. Continue antibiotics. Continue steroids intravenously and bronchodilators. Pulmonary service on the case. Weaning ventilator per pulmonary service. Recheck chest x-ray, hematocrit and electrolytes in the morning. Continue supportive care. Patient on eliquis at home. We will discontinue warfarin.
--- NOTE | 2016-03-18 10:08 | Progress Note ---
Provider Note Provider Note: Addendum to progress note: Problem list: Acute hypoxemic respiratory failure with hypercarbia, COPD exacerbation, aspiration pneumonia, acute on chronic congestive heart failure systolic dysfunction, hypotension, coagulopathy secondary to eliquis, dilated cardiomyopathy ejection fraction 25%, atrial fibrillation chronic, hyperlipidemia, coronary artery disease, seizure disorder, hypertension, diabetes mellitus type2.
[2016-03-18] MEDS ORDERED: FUROSEMIDE INJ/PF 40 MG/4 ML SDV IV ONE (11:00)
--- NOTE | 2016-03-18 12:05 | PDOC PROGRESS REPORT ---
Subjective Progress Note for:: 03/18/16 Subjective:: Patient about the same and has made very little progress. There is no significant change in general condition. Patient remains intubated, sedated, patient however looks comfortable and in acute distress. Patient has paced rhythm. Patient is still needing vasopressors. Currently on low dose dopamine. Urine output seems to have improved. Medications reviewed. Physical Exam Vital Signs: Temp Pulse Resp BP Pulse Ox 98.2 F 70 18 101/55 L 91 L 03/18/16 10:00 03/18/16 10:00 03/18/16 10:00 03/18/16 10:00 03/18/16 10:00 Intake & Output 03/17/16 03/18/16 03/19/16 06:59 06:59 06:59 Intake Total 3342 Output Total 1525 325 Balance 1817 -325 Weight 104.8 kg 107.1 kg Exam: GENERAL: well-nourished and in no acute distress. Patient is intubated and sedated. Orientation cannot be checked HEAD: Atraumatic, normocephalic. EYES: Pupils equal round and reactive to light, extraocular movements could not be checked, sclera anicteric, conjunctiva are normal. ENT: TMs normal, nares patent, oropharynx clear without exudates. Moist mucous membranes. No oral ulcerations or bleeding gums noted NECK: supple without lymphadenopathy or JVD. Trachea is central. No cervical or axillary lymphadenopathy noted. Carotids are 2+ LUNGS: Breath sounds mostly clear to auscultation patient is noted to have bibasal crackles at the extreme bases CHEST: Palpation of the chest wall shows no significant chest wall tenderness or abnormalities. HEART: [place] [employer], No PSH, 2/6 CHEO aortic area, 1/6 carrasco systolic murmur mitral area , no rubs or gallops. ABDOMEN: Soft, no significant tenderness appreciated, normoactive bowel sounds. No guarding, no rebound. No rigidity noted . No masses appreciated. Abdominal wall swelling and some erythematous changes noted indicative of low-grade cellulitis. EXTREMITIES: Pedal pulses are 1-2+, no calf tenderness noted, 1+ pedal edema noted. No clubbing or cyanosis. NEUROLOGICAL: The patient cannot participate in the neurological exam but no facial asymmetry noted. Extremities slightly hypotonic PSYCH: This cannot be evaluated. Patient cannot participate. SKIN: No significant ecchymosis, rash, or signs of pruritus noted. MUSCULOSKELETAL EXAM: No significant joint swelling noted. Patient cannot participate in musculoskeletal exam Results Laboratory Results: 03/18/16 05:14 03/18/16 05:14 03/17/16 03/18/16 03/18/16 13:18 05:14 05:14 WBC 7.2 RBC 4.66 Hgb 13.8 Hct 43.3 MCV 93 MCH 29.6 MCHC 31.8 L RDW 15.6 H Plt Count 209 Seg Neutrophils % Not Reportable Lymphocytes % Not Reportable Monocytes % Not Reportable Eosinophils % Not Reportable Basophils % Not Reportable Absolute Neutrophils Not Reportable Absolute Lymphocytes Not Reportable Absolute Monocytes Not Reportable Absolute Eosinophils Not Reportable Absolute Basophils Not Reportable Carbonic Acid 1.52 H HCO3/H2CO3 Ratio 17:1 ABG pH 7.34 L ABG pCO2 50.5 H ABG pO2 65.7 L ABG HCO3 26.5 H ABG O2 Saturation 91.6 L ABG Base Excess 0 FiO2 55% Sodium Potassium Chloride Carbon Dioxide Anion Gap BUN Creatinine Est GFR ( Amer) Est GFR (Non-Af Amer) Glucose Calcium Magnesium Total Bilirubin AST ALT Alkaline Phosphatase Total Protein Albumin Triglycerides Urine Color YELLOW Urine Appearance SLIGHTLY-CLOUDY Urine pH 5.0 Ur Specific [place] 1.013 Urine Protein 30 H Urine Glucose (UA) NEGATIVE Urine Ketones TRACE H Urine Blood LARGE H Urine Nitrite NEGATIVE Ur Leukocyte Esterase NEGATIVE Urine WBC (Auto) 97 Urine RBC (Auto) 43 03/18/16 03/18/16 05:14 05:14 WBC RBC Hgb Hct MCV MCH MCHC RDW Plt Count Seg Neutrophils % Lymphocytes % Monocytes % Eosinophils % Basophils % Absolute Neutrophils Absolute Lymphocytes Absolute Monocytes Absolute Eosinophils Absolute Basophils Carbonic Acid 1.38 H HCO3/H2CO3 Ratio 18:1 ABG pH 7.37 ABG pCO2 45.9 H ABG pO2 92.5 ABG HCO3 25.8 ABG O2 Saturation 96.8 ABG Base Excess 0.1 FiO2 55% Sodium 135.4 L Potassium 4.9 Chloride 97 L Carbon Dioxide 28 Anion Gap 10 BUN 39 H Creatinine 1.12 Est GFR ( Amer) > 60 Est GFR (Non-Af Amer) > 60 Glucose 156 H Calcium 8.9 Magnesium 2.3 Total Bilirubin 1.7 H AST 22 ALT 33 Alkaline Phosphatase 142 H Total Protein 6.2 L Albumin 3.5 Triglycerides 60 Urine Color Urine Appearance Urine pH Ur Specific [place] Urine Protein Urine Glucose (UA) Urine Ketones Urine Blood Urine Nitrite Ur Leukocyte Esterase Urine WBC (Auto) Urine RBC (Auto) 03/17/16 03/17/16 03/17/16 06:00 06:00 13:35 Creatine Kinase 101 91 CK-MB (CK-2) 5.84 H Troponin I 0.056 03/17/16 03/17/16 03/17/16 13:35 19:05 19:05 Creatine Kinase 65 CK-MB (CK-2) 4.99 H 3.77 Troponin I 0.041 0.036 Impressions: Chest X-Ray 03/18/16 06:00 IMPRESSION: Interval improvement in the right basilar density. Other findings as noted above Assessment & Plan - Diagnosis (1) Hypotension Qualifiers: Hypotension type: unspecified hypotension type Qualified Code(s): I95.9 - Hypotension, unspecified Is this a current diagnosis for this admission?: Yes (2) Respiratory arrest Is this a current diagnosis for this admission?: Yes (3) ARF (acute renal failure) Qualifiers: Acute renal failure type: unspecified Qualified Code(s): N17.9 - Acute kidney failure, unspecified Is this a current diagnosis for this admission?: Yes (4) Coronary artery disease Qualifiers: Coronary Disease-Associated Artery/Lesion type: [place] artery Associated angina: angina presence unspecified Is this a current diagnosis for this admission?: Yes (5) Cardiomyopathy Qualifiers: Cardiomyopathy type: dilated Qualified Code(s): I42.0 - Dilated cardiomyopathy Is this a current diagnosis for this admission?: Yes (6) History of implantable cardioverter-defibrillator (ICD) placement Is this a current diagnosis for this admission?: Yes (7) CHF (congestive heart failure) Qualifiers: Congestive heart failure type: combined Congestive heart failure chronicity: chronic Qualified Code(s): I50.42 - Chronic combined systolic (congestive) and diastolic (congestive) heart failure Is this a current diagnosis for this admission?: Yes (8) COPD (chronic obstructive pulmonary disease) Qualifiers: COPD type: COPD with acute exacerbation Qualified Code(s): J44.1 - Chronic obstructive pulmonary disease with (acute) exacerbation Is this a current diagnosis for this admission?: Yes - Notes Notes: Hypotension: This seems to have improved. Patient currently on low dose dopamine at 2.5 g daily per minute. This is mostly renal dose. Respiratory arrest with severe hypercarbia and hypercapnia. Patient currently intubated. Patient needs continued ventilatory support. Acute renal failure: Patient's urine output has improved. Coronary artery disease: Currently stable. Cardiac enzymes are negative. Cardiomyopathy: Patient has severe dilated cardiomyopathy. Will consider repeating an echo. Congestive heart failure: Patient has a history of it but currently seems euvolemic. Will restart diuretics. Chronic anticoagulation: Patient started back on Xarelto. COPD: Patient has respiratory failure from COPD exacerbation. Suspected pneumonia: Continue antibiotic therapy. - Time Time with patient: Greater than 35 minutes - CODE STATUS was discussed, patient remains full code. Surrogate decision-maker unchanged. Multiple medical problems were addressed.More than 50% of the time spent coordinating care, discussing management plans with involved caregivers. Management plans discussed with involved personnels. Medical decision making was of severe complexity. Medications reviewed and adjusted accordingly: Yes
--- NOTE | 2016-03-18 15:06 | Physician Advisory Note ---
Physician Advisor ProgressNote .: Pursuant to the plan for [facility], I have reviewed the medical record for this patient. Physician Advisor Statement: Fantastic list of co-morbidities documented in 2nd progress note today - great job! Please consider addin. " type shock due to " [septic due to aspiration PNA? cardiogenic due to cardiac arrest/cardiomyopathy? hypovolemic shock due to ____ , ...] 2. "mild hyponatemia, likely due to " 3 Please document whether "Acute Renal Failure", mentioned in H&P but not in more recent notes, was a typo, or ruled out, or present. - If pt had AcRenal Failure, please document type (ATN, Acute cortical necrosis, medullary necrosis, ...) Thanks! CK
[2016-03-18] MEDS: FENOFIBRATE NANOCRYSTALLIZED 48 MG TABLET NG SCH (17:35)
[2016-03-18] MEDS: APIXABAN 5 MG TABLET PO SCH (17:36)
[2016-03-18] MEDS ORDERED: ALTEPLASE INJ 2 MG VIAL (CATH CLEARANCE) IV ONE (18:30)
[2016-03-19] MEDS: IPRATROPIUM/ALBUTEROL 0.5-2.5 MG/3 ML AMPUL NEB SCH ×4 (02:16→20:02)
[2016-03-19] MEDS: PROPOFOL 100 ML IV PRN ×5 (02:31→21:46)
[2016-03-19] MEDS: METHYLPREDNISOLONE INJ 125 MG/2 ML SDV IV SCH ×3 (02:47→17:22)
[2016-03-19] MEDS: DOPAMINE HCL/DEXTROSE 5%-WATER 800 MG/250 ML RTUINJ IV PRN (04:53)
[2016-03-19] MEDS: LANSOPRAZOLE 30 MG TAB.RAP.DR NG SCH ×2 (05:00→17:23)
[2016-03-19] MEDS: CLINDAMYCIN 600 MG/D5W RTU 50 ML IV SCH ×3 (05:00→22:09)
[2016-03-19 06:35] LABS: ARTERIAL BLOOD BASE EXCESS 0.5 mmol/L; ARTERIAL BLOOD O2 SATURATION 97.6 % (94-98)
[2016-03-19 06:37] LABS: HEMATOCRIT 42.5 % (37.9-51.0); HEMOGLOBIN 13.6 g/dL (13.5-17.0); HGB HCT DIFFERENCE -1.7; MEAN CORPUSCULAR HEMOGLOBIN 29.6 pg (27.0-33.4); MEAN CORPUSCULAR HGB CONC 31.9 g/dL (32.0-36.0); MEAN CORPUSCULAR VOLUME 93 fl (80-97); RED BLOOD COUNT 4.58 10^6/uL (4.35-5.55); RED CELL DISTRIBUTION WIDTH 15.7 % (11.5-14.0); WHITE BLOOD COUNT 6.4 10^3/uL (4.0-10.5)
[2016-03-19 06:40] LABS: PROTHROMBIN TIME 20.6 SEC (11.4-15.4)
[2016-03-19 06:59] LABS: ANION GAP 9 (5-19); BLOOD UREA NITROGEN 37 mg/dL (7-20); CARBON DIOXIDE 30 mmol/L (22-30); CHLORIDE 99 mmol/L (98-107); CREATININE RESULT 0.93 mg/dL (0.52-1.25); GLUCOSE 152 mg/dL (75-110); MAGNESIUM 2.3 mg/dL (1.6-2.3); POTASSIUM 4.6 mmol/L (3.6-5.0); SODIUM 137.9 mmol/L (137-145)
[2016-03-19 07:00] LABS: BASOPHILS % (MANUAL) 0 % (0-2); EOSINOPHILS % (MANUAL) 0 % (0-6); LYMPHOCYTES % (MANUAL) 7 % (13-45); TOTAL CELLS COUNTED 100
[2016-03-19 07:02] LABS: ANISOCYTOSIS SLIGHT; BURR CELLS SLIGHT; OVALOCYTES SLIGHT; POIKILOCYTOSIS SLIGHT; TEAR DROP CELLS SLIGHT; TOXIC GRANULATION SLIGHT
[2016-03-19] MEDS: VANCOMYCIN HCL 1,500 MG in DEXTROSE 5%-WATER 250 ML IV SCH ×2 (07:42→20:37)
--- NOTE | 2016-03-19 08:45 | PDOC PROGRESS REPORT ---
Subjective Progress Note for:: 03/19/16 Subjective:: Patient remained on the ventilator. Intubated. Vasopressor shifted to dopamine but currently off and trying to be weaned. Patient on Diprivan. Urine output positive balance at 300+ mL. No reported temperature spikes, nor diarrhea. Chest x-ray shows stable infiltrate. Physical Exam Vital Signs: Temp Pulse Resp BP Pulse Ox 97.6 F 71 22 H 115/72 98 03/19/16 08:00 03/19/16 08:00 03/19/16 08:00 03/19/16 08:00 03/19/16 08:00 Intake & Output 03/18/16 03/19/16 03/20/16 06:59 06:59 06:59 Intake Total 3342 3598 Output Total 1525 3225 100 Balance 1817 373 -100 Weight 107.1 kg 106.8 kg General appearance: PRESENT: no acute distress, other - Intubated and sedated Head exam: PRESENT: normocephalic Eye exam: PRESENT: conjunctiva pink Mouth exam: PRESENT: moist, neck supple Neck exam: ABSENT: JVD Respiratory exam: PRESENT: crackles - few bilateral, unlabored. ABSENT: wheezes Cardiovascular exam: PRESENT: RRR. ABSENT: gallop GI/Abdominal exam: PRESENT: hypoactive bowel sounds, soft. ABSENT: distended Extremities exam: PRESENT: +1 edema Skin exam: PRESENT: dry, warm. ABSENT: cyanosis Results Laboratory Results: 03/19/16 06:20 03/19/16 06:20 03/19/16 03/19/16 03/19/16 06:20 06:20 06:20 WBC 6.4 RBC 4.58 Hgb 13.6 Hct 42.5 MCV 93 MCH 29.6 MCHC 31.9 L RDW 15.7 H Plt Count 223 Seg Neutrophils % Not Reportable Lymphocytes % Not Reportable Monocytes % Not Reportable Eosinophils % Not Reportable Basophils % Not Reportable Absolute Neutrophils Not Reportable Absolute Lymphocytes Not Reportable Absolute Monocytes Not Reportable Absolute Eosinophils Not Reportable Absolute Basophils Not Reportable Carbonic Acid 1.29 HCO3/H2CO3 Ratio 19:1 ABG pH 7.40 ABG pCO2 42.7 ABG pO2 102.2 H ABG HCO3 25.6 ABG O2 Saturation 97.6 ABG Base Excess 0.5 FiO2 55% Sodium 137.9 Potassium 4.6 Chloride 99 Carbon Dioxide 30 Anion Gap 9 BUN 37 H Creatinine 0.93 Est GFR ( Amer) > 60 Est GFR (Non-Af Amer) > 60 Glucose 152 H Calcium 9.0 Magnesium 2.3 03/17/16 13:45 Tracheal Aspirate Gram Stain - Final 03/17/16 13:45 Tracheal Aspirate Sputum Culture - Final NORMAL REYNALDO 03/17/16 03/17/16 03/17/16 06:00 06:00 13:35 Creatine Kinase 101 91 CK-MB (CK-2) 5.84 H Troponin I 0.056 03/17/16 03/17/16 03/17/16 13:35 19:05 19:05 Creatine Kinase 65 CK-MB (CK-2) 4.99 H 3.77 Troponin I 0.041 0.036 Impressions: Chest X-Ray 03/19/16 06:00 IMPRESSION: No significant change. No pneumothorax. Assessment & Plan - Diagnosis (1) Acute hypoxemic respiratory failure Is this a current diagnosis for this admission?: Yes (2) Aspiration pneumonia Qualifiers: Aspiration pneumonia type: unspecified Lung location: unspecified part of lung Is this a current diagnosis for this admission?: Yes (3) COPD exacerbation Is this a current diagnosis for this admission?: Yes (4) Hypotension Qualifiers: Hypotension type: unspecified hypotension type Qualified Code(s): I95.9 - Hypotension, unspecified Is this a current diagnosis for this admission?: Yes (5) Acute on chronic combined systolic and diastolic CHF (congestive heart failure) Is this a current diagnosis for this admission?: Yes (6) Coagulopathy Is this a current diagnosis for this admission?: Yes (7) Cardiomyopathy Qualifiers: Cardiomyopathy type: dilated Qualified Code(s): I42.0 - Dilated cardiomyopathy Is this a current diagnosis for this admission?: Yes (8) Coronary artery disease Qualifiers: Coronary Disease-Associated Artery/Lesion type: [place] artery [place] vs. transplanted heart: [place] heart Associated angina: angina presence unspecified Qualified Code(s): I25.10 - Atherosclerotic heart disease of [place] coronary artery without angina pectoris Is this a current diagnosis for this admission?: Yes (9) Essential hypertension Is this a current diagnosis for this admission?: Yes (10) Afib Qualifiers: Atrial fibrillation type: unspecified Qualified Code(s): I48.91 - Unspecified atrial fibrillation Is this a current diagnosis for this admission?: Yes (11) Diabetes mellitus type 2 in obese Is this a current diagnosis for this admission?: Yes (12) Seizure disorder Is this a current diagnosis for this admission?: Yes - Time Time Spent with patient: 25-34 minutes - Plan Summary Plan Summary: Continue the diuretics. Positive balance improved. We will decrease intravenous fluid. We will taper steroids. Continue current antibiotics and follow cultures. Continue supportive care. Weaning ventilator per pulmonary service. Continue to wean vasopressors. Recheck hematocrit, electrolytes, chest x-ray in the morning. Renew his restraints.
[2016-03-19] MEDS ORDERED: FUROSEMIDE INJ/PF 40 MG/4 ML SDV IV SCH (10:00)
[2016-03-19] MEDS: MIDODRINE HCL 5 MG TABLET NG SCH ×3 (10:10→17:24)
[2016-03-19] MEDS: APIXABAN 5 MG TABLET PO SCH ×2 (10:10→17:26)
[2016-03-19] MEDS: ASPIRIN 81 MG TABLET, ENT COATED PO SCH (10:10)
[2016-03-19] MEDS: FERROUS SULFATE LIQUID 300 MG/5 ML UDC NG SCH (10:10)
[2016-03-19] MEDS: DIGOXIN 0.125 MG TABLET PO SCH (10:10)
[2016-03-19] MEDS: EPLERENONE 25 MG TABLET NG SCH ×2 (10:10→17:23)
[2016-03-19] MEDS: LEVOFLOXACIN 750 MG/D5W RTU 750 MG/150 ML RTUPB IV SCH (10:11)
[2016-03-19] MEDS: DOCUSATE SODIUM 100 MG CAPSULE PO SCH ×2 (10:12→17:23)
[2016-03-19] MEDS: NORMAL SALINE 1000 ML 1,000 ML IV PRN (13:51)
[2016-03-19] MEDS: FENOFIBRATE NANOCRYSTALLIZED 48 MG TABLET NG SCH (17:24)
--- NOTE | 2016-03-19 20:15 | PDOC PROGRESS REPORT ---
Subjective Progress Note for:: 03/19/16 Subjective:: Patient about the same and has made some progress. There is no significant change in general condition, but I believe he is better. Patient to have extubation trials. Patient remains intubated, sedated, patient however looks comfortable and in acute distress. Patient has paced rhythm. Currently off dopamine. Urine output seems to have improved. Patient has underlying atrial fibrillation Medications reviewed. Physical Exam Vital Signs: Temp Pulse Resp BP Pulse Ox 99.1 F 71 22 H 119/70 93 03/19/16 16:00 03/19/16 16:00 03/19/16 18:31 03/19/16 18:31 03/19/16 18:31 Intake & Output 03/18/16 03/19/16 03/20/16 06:59 06:59 06:59 Intake Total 3342 3598 1442 Output Total 1525 3225 1375 Balance 1817 373 67 Weight 107.1 kg 106.8 kg Exam: GENERAL: well-nourished and in no acute distress. Patient is intubated and sedated. Orientation cannot be checked HEAD: Atraumatic, normocephalic. EYES: Pupils equal round and reactive to light, extraocular movements could not be checked, sclera anicteric, conjunctiva are normal. ENT: TMs normal, nares patent, oropharynx clear without exudates. Moist mucous membranes. No oral ulcerations or bleeding gums noted NECK: supple without lymphadenopathy or JVD. Trachea is central. No cervical or axillary lymphadenopathy noted. Carotids are 2+ LUNGS: Breath sounds mostly clear to auscultation patient is noted to have bibasal crackles at the extreme bases CHEST: Palpation of the chest wall shows no significant chest wall tenderness or abnormalities. HEART: [place] [employer], No PSH, 2/6 CHEO aortic area, 1/6 carrasco systolic murmur mitral area , no rubs or gallops. ABDOMEN: Soft, no significant tenderness appreciated, normoactive bowel sounds. No guarding, no rebound. No rigidity noted . No masses appreciated. EXTREMITIES: Pedal pulses are 1-2+, no calf tenderness noted, 1-2+ pedal edema noted. No clubbing or cyanosis. NEUROLOGICAL: The patient cannot participate in the neurological exam but no facial asymmetry noted. Extremities slightly hypotonic PSYCH: This cannot be evaluated. Patient cannot participate. SKIN: No significant ecchymosis, rash, or signs of pruritus noted. MUSCULOSKELETAL EXAM: No significant joint swelling noted. Patient cannot participate in musculoskeletal exam Results Laboratory Results: 03/19/16 06:20 03/19/16 06:20 03/19/16 03/19/16 03/19/16 06:20 06:20 06:20 WBC 6.4 RBC 4.58 Hgb 13.6 Hct 42.5 MCV 93 MCH 29.6 MCHC 31.9 L RDW 15.7 H Plt Count 223 Seg Neutrophils % Not Reportable Lymphocytes % Not Reportable Monocytes % Not Reportable Eosinophils % Not Reportable Basophils % Not Reportable Absolute Neutrophils Not Reportable Absolute Lymphocytes Not Reportable Absolute Monocytes Not Reportable Absolute Eosinophils Not Reportable Absolute Basophils Not Reportable Carbonic Acid 1.29 HCO3/H2CO3 Ratio 19:1 ABG pH 7.40 ABG pCO2 42.7 ABG pO2 102.2 H ABG HCO3 25.6 ABG O2 Saturation 97.6 ABG Base Excess 0.5 FiO2 55% Sodium 137.9 Potassium 4.6 Chloride 99 Carbon Dioxide 30 Anion Gap 9 BUN 37 H Creatinine 0.93 Est GFR ( Amer) > 60 Est GFR (Non-Af Amer) > 60 Glucose 152 H Calcium 9.0 Magnesium 2.3 03/17/16 13:45 Tracheal Aspirate Gram Stain - Final 03/17/16 13:45 Tracheal Aspirate Sputum Culture - Final NORMAL REYNALDO 03/17/16 03/17/16 03/17/16 06:00 06:00 13:35 Creatine Kinase 101 91 CK-MB (CK-2) 5.84 H Troponin I 0.056 03/17/16 03/17/16 03/17/16 13:35 19:05 19:05 Creatine Kinase 65 CK-MB (CK-2) 4.99 H 3.77 Troponin I 0.041 0.036 Impressions: Chest X-Ray 03/19/16 06:00 IMPRESSION: No significant change. No pneumothorax. Assessment & Plan - Diagnosis (1) Hypotension Qualifiers: Hypotension type: unspecified hypotension type Qualified Code(s): I95.9 - Hypotension, unspecified Is this a current diagnosis for this admission?: Yes (2) Respiratory arrest Is this a current diagnosis for this admission?: Yes (3) ARF (acute renal failure) Qualifiers: Acute renal failure type: unspecified Qualified Code(s): N17.9 - Acute kidney failure, unspecified Is this a current diagnosis for this admission?: Yes (4) Coronary artery disease Qualifiers: Coronary Disease-Associated Artery/Lesion type: [place] artery [place] vs. transplanted heart: [place] heart Associated angina: angina presence unspecified Qualified Code(s): I25.10 - Atherosclerotic heart disease of [place] coronary artery without angina pectoris Is this a current diagnosis for this admission?: Yes (5) Cardiomyopathy Qualifiers: Cardiomyopathy type: dilated Qualified Code(s): I42.0 - Dilated cardiomyopathy Is this a current diagnosis for this admission?: Yes (6) History of implantable cardioverter-defibrillator (ICD) placement Is this a current diagnosis for this admission?: Yes (7) CHF (congestive heart failure) Qualifiers: Congestive heart failure type: combined Congestive heart failure chronicity: chronic Qualified Code(s): I50.42 - Chronic combined systolic (congestive) and diastolic (congestive) heart failure Is this a current diagnosis for this admission?: Yes (8) COPD (chronic obstructive pulmonary disease) Qualifiers: COPD type: COPD with acute exacerbation Qualified Code(s): J44.1 - Chronic obstructive pulmonary disease with (acute) exacerbation Is this a current diagnosis for this admission?: Yes - Notes Notes: Hypotension: Blood pressure now more stable. Patient off vasopressors. Respiratory arrest: Patient on ventilator. Exact etiology not clear. Patient currently being ventilated. Most likely COPD exacerbation. Acute renal failure: Improving. Patient noted to have improved urinary output. Coronary artery disease: Cardiac enzymes were negative. Believe this is stable. Cardiomyopathy: Dilated. Patient has severely depressed LVEF. Status post defibrillator placement: Currently functioning normally. Congestive heart failure: Overall compensated. COPD: Improving. - Time Time with patient: Greater than 35 minutes - CODE STATUS was discussed, patient remains full code. Surrogate decision-maker unchanged. Multiple medical problems were addressed.More than 50% of the time spent coordinating care, discussing management plans with involved caregivers. Management plans discussed with involved personnels. Medical decision making was of moderate to severe complexity.
[2016-03-20] MEDS: METHYLPREDNISOLONE INJ 125 MG/2 ML SDV IV SCH ×3 (02:19→17:23)
[2016-03-20] MEDS: IPRATROPIUM/ALBUTEROL 0.5-2.5 MG/3 ML AMPUL NEB SCH ×4 (02:29→20:05)
[2016-03-20 05:20] LABS: ARTERIAL BLOOD BASE EXCESS 1.9 mmol/L; ARTERIAL BLOOD O2 SATURATION 97.1 % (94-98)
[2016-03-20 05:33] LABS: HEMATOCRIT 41.7 % (37.9-51.0); HEMOGLOBIN 13.5 g/dL (13.5-17.0); HGB HCT DIFFERENCE -1.2; MEAN CORPUSCULAR HEMOGLOBIN 29.9 pg (27.0-33.4); MEAN CORPUSCULAR HGB CONC 32.4 g/dL (32.0-36.0); MEAN CORPUSCULAR VOLUME 92 fl (80-97); RED BLOOD COUNT 4.53 10^6/uL (4.35-5.55); RED CELL DISTRIBUTION WIDTH 15.6 % (11.5-14.0); WHITE BLOOD COUNT 8.3 10^3/uL (4.0-10.5)
[2016-03-20 05:41] LABS: APPEARANCE,URINE CLEAR; BILIRUBIN,URINE NEGATIVE (NEGATIVE); GLUCOSE, URINE NEGATIVE (NEGATIVE); KETONES,URINE NEGATIVE (NEGATIVE); LEUKOCYTE ESTERASE,URINE NEGATIVE (NEGATIVE); NITRITE,URINE NEGATIVE (NEGATIVE); PROTEIN,URINE NEGATIVE (NEGATIVE); URINE SPECIFIC GRAVITY 1.018; UROBILINOGEN,URINE NEGATIVE mg/dL (<2.0)
[2016-03-20] MEDS: LANSOPRAZOLE 30 MG TAB.RAP.DR NG SCH ×2 (05:44→17:23)
[2016-03-20] MEDS: CLINDAMYCIN 600 MG/D5W RTU 50 ML IV SCH ×3 (05:44→21:36)
[2016-03-20 05:51] LABS: ANION GAP 8 (5-19); BLOOD UREA NITROGEN 38 mg/dL (7-20); CARBON DIOXIDE 31 mmol/L (22-30); CHLORIDE 99 mmol/L (98-107); CREATININE RESULT 0.92 mg/dL (0.52-1.25); GLUCOSE 111 mg/dL (75-110); MAGNESIUM 2.2 mg/dL (1.6-2.3); PHOSPHORUS 3.6 mg/dL (2.5-4.5); POTASSIUM 4.9 mmol/L (3.6-5.0); SODIUM 138.4 mmol/L (137-145)
[2016-03-20] MEDS: PROPOFOL 100 ML IV PRN ×4 (06:13→20:39)
[2016-03-20 06:21] LABS: BASOPHILS % (MANUAL) 0 % (0-2); EOSINOPHILS % (MANUAL) 0 % (0-6); LYMPHOCYTES % (MANUAL) 2 % (13-45); TOTAL CELLS COUNTED 100
[2016-03-20 06:22] LABS: ANISOCYTOSIS SLIGHT; OVALOCYTES SLIGHT; TEAR DROP CELLS SLIGHT
[2016-03-20 06:24] LABS: POLYCHROMASIA SLIGHT
[2016-03-20 07:26] LABS: PROTHROMBIN TIME 20.4 SEC (11.4-15.4)
[2016-03-20] MEDS ORDERED: VANCOMYCIN HCL 1,000 MG in DEXTROSE 5%-WATER 250 ML IV SCH (08:00)
--- NOTE | 2016-03-20 08:47 | PDOC PROGRESS REPORT ---
Subjective Progress Note for:: 03/20/16 Subjective:: Patient remained on the ventilator. Intubated. Patient on Diprivan. Off dopamine . Urine output positive balance at 190+ mL. No reported temperature spikes, nor diarrhea. Chest x-ray shows stable infiltrate or congestion. Unable to be weaned yesterday. Physical Exam Vital Signs: Temp Pulse Resp BP Pulse Ox 100.0 F 70 20 121/71 95 03/20/16 08:00 03/20/16 08:02 03/20/16 08:02 03/20/16 08:00 03/20/16 08:02 Intake & Output 03/19/16 03/20/16 03/21/16 06:59 06:59 06:59 Intake Total 3598 2788 Output Total 3225 2595 90 Balance 373 193 -90 Weight 106.8 kg 104.9 kg General appearance: PRESENT: no acute distress, other - Intubated and sedated Head exam: PRESENT: normocephalic Eye exam: PRESENT: conjunctiva pink Mouth exam: PRESENT: moist, neck supple Neck exam: ABSENT: JVD Respiratory exam: PRESENT: clear to auscultation nic - Anteriorly bilateral, rales - Lower lung [place] posteriorly. ABSENT: rhonchi, wheezes Cardiovascular exam: PRESENT: RRR. ABSENT: gallop GI/Abdominal exam: PRESENT: normal bowel sounds, soft. ABSENT: distended, tenderness Extremities exam: PRESENT: +1 edema - Both upper and lower extremities Neurological exam: PRESENT: altered - Sedated, on diprivan Skin exam: PRESENT: dry, warm. ABSENT: cyanosis Results Laboratory Results: 03/20/16 05:18 03/20/16 05:18 03/20/16 03/20/16 03/20/16 05:00 05:18 05:18 WBC 8.3 RBC 4.53 Hgb 13.5 Hct 41.7 MCV 92 MCH 29.9 MCHC 32.4 RDW 15.6 H Plt Count 196 Seg Neutrophils % Not Reportable Lymphocytes % Not Reportable Monocytes % Not Reportable Eosinophils % Not Reportable Basophils % Not Reportable Absolute Neutrophils Not Reportable Absolute Lymphocytes Not Reportable Absolute Monocytes Not Reportable Absolute Eosinophils Not Reportable Absolute Basophils Not Reportable Carbonic Acid 1.26 HCO3/H2CO3 Ratio 21:1 ABG pH 7.42 ABG pCO2 41.9 ABG pO2 91.3 ABG HCO3 26.6 H ABG O2 Saturation 97.1 ABG Base Excess 1.9 FiO2 50% Sodium Potassium Chloride Carbon Dioxide Anion Gap BUN Creatinine Est GFR ( Amer) Est GFR (Non-Af Amer) Glucose Calcium Phosphorus Magnesium Urine Color YELLOW Urine Appearance CLEAR Urine pH 5.0 Ur Specific [place] 1.018 Urine Protein NEGATIVE Urine Glucose (UA) NEGATIVE Urine Ketones NEGATIVE Urine Blood SMALL H Urine Nitrite NEGATIVE Ur Leukocyte Esterase NEGATIVE Urine WBC (Auto) 3 Urine RBC (Auto) 26 03/20/16 05:18 WBC RBC Hgb Hct MCV MCH MCHC RDW Plt Count Seg Neutrophils % Lymphocytes % Monocytes % Eosinophils % Basophils % Absolute Neutrophils Absolute Lymphocytes Absolute Monocytes Absolute Eosinophils Absolute Basophils Carbonic Acid HCO3/H2CO3 Ratio ABG pH ABG pCO2 ABG pO2 ABG HCO3 ABG O2 Saturation ABG Base Excess FiO2 Sodium 138.4 Potassium 4.9 Chloride 99 Carbon Dioxide 31 H Anion Gap 8 BUN 38 H Creatinine 0.92 Est GFR ( Amer) > 60 Est GFR (Non-Af Amer) > 60 Glucose 111 H Calcium 9.0 Phosphorus 3.6 Magnesium 2.2 Urine Color Urine Appearance Urine pH Ur Specific [place] Urine Protein Urine Glucose (UA) Urine Ketones Urine Blood Urine Nitrite Ur Leukocyte Esterase Urine WBC (Auto) Urine RBC (Auto) 03/17/16 13:45 Tracheal Aspirate Gram Stain - Final 03/17/16 13:45 Tracheal Aspirate Sputum Culture - Final NORMAL REYNALDO 03/17/16 03/17/16 03/17/16 06:00 06:00 13:35 Creatine Kinase 101 91 CK-MB (CK-2) 5.84 H Troponin I 0.056 03/17/16 03/17/16 03/17/16 13:35 19:05 19:05 Creatine Kinase 65 CK-MB (CK-2) 4.99 H 3.77 Troponin I 0.041 0.036 Impressions: Chest X-Ray 03/20/16 06:00 IMPRESSION: Tubes and lines in good positioning Persistent pulmonary vascular congestion with few [place] lines indicating mild interstitial edema Stable cardiomegaly Assessment & Plan - Diagnosis (1) Acute hypoxemic respiratory failure Is this a current diagnosis for this admission?: Yes (2) Aspiration pneumonia Qualifiers: Aspiration pneumonia type: unspecified Lung location: unspecified part of lung Is this a current diagnosis for this admission?: Yes (3) COPD exacerbation Is this a current diagnosis for this admission?: Yes (4) Hypotension Qualifiers: Hypotension type: unspecified hypotension type Qualified Code(s): I95.9 - Hypotension, unspecified Is this a current diagnosis for this admission?: Yes (5) Acute on chronic combined systolic and diastolic CHF (congestive heart failure) Is this a current diagnosis for this admission?: Yes (6) Coagulopathy Is this a current diagnosis for this admission?: Yes (7) Cardiomyopathy Qualifiers: Cardiomyopathy type: dilated Qualified Code(s): I42.0 - Dilated cardiomyopathy Is this a current diagnosis for this admission?: Yes (8) Coronary artery disease Qualifiers: Coronary Disease-Associated Artery/Lesion type: [place] artery [place] vs. transplanted heart: [place] heart Associated angina: angina presence unspecified Qualified Code(s): I25.10 - Atherosclerotic heart disease of [place] coronary artery without angina pectoris Is this a current diagnosis for this admission?: Yes (9) Essential hypertension Is this a current diagnosis for this admission?: Yes (10) Afib Qualifiers: Atrial fibrillation type: unspecified Qualified Code(s): I48.91 - Unspecified atrial fibrillation Is this a current diagnosis for this admission?: Yes (11) Diabetes mellitus type 2 in obese Is this a current diagnosis for this admission?: Yes (12) Seizure disorder Is this a current diagnosis for this admission?: Yes - Time Time Spent with patient: 25-34 minutes - Plan Summary Plan Summary: Continue current antibiotics. Increase diuretics. Monitor electrolytes. Weaning ventilator per pulmonary service. Continue supportive care. Check routine labs in the morning. We will obtain follow-up chest x-ray in the morning as well. Renew his restraints today for prevention of critical lines be pulled.
[2016-03-20] MEDS: MIDODRINE HCL 5 MG TABLET NG SCH ×3 (09:04→17:22)
[2016-03-20] MEDS: DOCUSATE SODIUM 100 MG CAPSULE PO SCH ×2 (09:04→17:22)
[2016-03-20] MEDS: DIGOXIN 0.125 MG TABLET PO SCH (09:05)
[2016-03-20] MEDS: EPLERENONE 25 MG TABLET NG SCH ×2 (09:05→17:23)
[2016-03-20] MEDS: ASPIRIN 81 MG TABLET, ENT COATED PO SCH (09:06)
[2016-03-20] MEDS: APIXABAN 5 MG TABLET PO SCH ×2 (09:06→17:22)
[2016-03-20] MEDS: FERROUS SULFATE LIQUID 300 MG/5 ML UDC NG SCH (09:06)
[2016-03-20] MEDS: LEVOFLOXACIN 750 MG/D5W RTU 750 MG/150 ML RTUPB IV SCH (09:09)
[2016-03-20] MEDS ORDERED: FUROSEMIDE INJ/PF 40 MG/4 ML SDV IV ONE (10:15)
--- NOTE | 2016-03-20 11:54 | PDOC PROGRESS REPORT ---
Subjective Progress Note for:: 03/20/16 Subjective:: Patient about the same and has made some progress. There is no significant change in general condition, but I believe he is better. Patient to have extubation trials. Patient today noted to be more alert Patient remains intubated, less sedated, patient however looks comfortable and in acute distress. Patient has paced rhythm. Currently off dopamine. Urine output seems to have improved. Patient has underlying atrial fibrillation Medications reviewed. Physical Exam Vital Signs: Temp Pulse Resp BP Pulse Ox 99.9 F 75 24 H 125/82 97 03/20/16 09:54 03/20/16 09:54 03/20/16 09:54 03/20/16 09:54 03/20/16 09:54 Intake & Output 03/19/16 03/20/16 03/21/16 06:59 06:59 06:59 Intake Total 3598 2788 Output Total 3225 2595 315 Balance 373 193 -315 Weight 106.8 kg 104.9 kg Exam: GENERAL: well-nourished and in no acute distress. Patient is intubated. Orientation cannot be checked HEAD: Atraumatic, normocephalic. EYES: Pupils equal round and reactive to light, extraocular movements could not be checked, sclera anicteric, conjunctiva are normal. ENT: TMs normal, nares patent, oropharynx clear without exudates. Moist mucous membranes. No oral ulcerations or bleeding gums noted NECK: supple without lymphadenopathy or JVD. Trachea is central. No cervical or axillary lymphadenopathy noted. Carotids are 2+ LUNGS: Breath sounds mostly clear to auscultation patient is noted to have bibasal crackles at the extreme bases CHEST: Palpation of the chest wall shows no significant chest wall tenderness or abnormalities. 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 ABDOMEN: Soft, no significant tenderness appreciated, normoactive bowel sounds. No guarding, no rebound. No rigidity noted . No masses appreciated. EXTREMITIES: Pedal pulses are 1-2+, no calf tenderness noted, 1-2+ pedal edema noted. No clubbing or cyanosis. NEUROLOGICAL: The patient cannot participate in the neurological exam but no facial asymmetry noted. Extremities slightly hypotonic PSYCH: This cannot be evaluated. Patient cannot participate. SKIN: No significant ecchymosis, rash, or signs of pruritus noted. MUSCULOSKELETAL EXAM: No significant joint swelling noted. Patient cannot participate in musculoskeletal exam Results Laboratory Results: 03/20/16 05:18 03/20/16 05:18 03/20/16 03/20/16 03/20/16 05:00 05:18 05:18 WBC 8.3 RBC 4.53 Hgb 13.5 Hct 41.7 MCV 92 MCH 29.9 MCHC 32.4 RDW 15.6 H Plt Count 196 Seg Neutrophils % Not Reportable Lymphocytes % Not Reportable Monocytes % Not Reportable Eosinophils % Not Reportable Basophils % Not Reportable Absolute Neutrophils Not Reportable Absolute Lymphocytes Not Reportable Absolute Monocytes Not Reportable Absolute Eosinophils Not Reportable Absolute Basophils Not Reportable Carbonic Acid 1.26 HCO3/H2CO3 Ratio 21:1 ABG pH 7.42 ABG pCO2 41.9 ABG pO2 91.3 ABG HCO3 26.6 H ABG O2 Saturation 97.1 ABG Base Excess 1.9 FiO2 50% Sodium Potassium Chloride Carbon Dioxide Anion Gap BUN Creatinine Est GFR ( Amer) Est GFR (Non-Af Amer) Glucose Calcium Phosphorus Magnesium Urine Color YELLOW Urine Appearance CLEAR Urine pH 5.0 Ur Specific [place] 1.018 Urine Protein NEGATIVE Urine Glucose (UA) NEGATIVE Urine Ketones NEGATIVE Urine Blood SMALL H Urine Nitrite NEGATIVE Ur Leukocyte Esterase NEGATIVE Urine WBC (Auto) 3 Urine RBC (Auto) 26 03/20/16 05:18 WBC RBC Hgb Hct MCV MCH MCHC RDW Plt Count Seg Neutrophils % Lymphocytes % Monocytes % Eosinophils % Basophils % Absolute Neutrophils Absolute Lymphocytes Absolute Monocytes Absolute Eosinophils Absolute Basophils Carbonic Acid HCO3/H2CO3 Ratio ABG pH ABG pCO2 ABG pO2 ABG HCO3 ABG O2 Saturation ABG Base Excess FiO2 Sodium 138.4 Potassium 4.9 Chloride 99 Carbon Dioxide 31 H Anion Gap 8 BUN 38 H Creatinine 0.92 Est GFR ( Amer) > 60 Est GFR (Non-Af Amer) > 60 Glucose 111 H Calcium 9.0 Phosphorus 3.6 Magnesium 2.2 Urine Color Urine Appearance Urine pH Ur Specific [place] Urine Protein Urine Glucose (UA) Urine Ketones Urine Blood Urine Nitrite Ur Leukocyte Esterase Urine WBC (Auto) Urine RBC (Auto) 03/17/16 13:45 Tracheal Aspirate Gram Stain - Final 03/17/16 13:45 Tracheal Aspirate Sputum Culture - Final NORMAL REYNALDO 03/17/16 03/17/16 03/17/16 06:00 06:00 13:35 Creatine Kinase 101 91 CK-MB (CK-2) 5.84 H Troponin I 0.056 03/17/16 03/17/16 03/17/16 13:35 19:05 19:05 Creatine Kinase 65 CK-MB (CK-2) 4.99 H 3.77 Troponin I 0.041 0.036 Impressions: Chest X-Ray 03/20/16 06:00 IMPRESSION: Tubes and lines in good positioning Persistent pulmonary vascular congestion with few [place] lines indicating mild interstitial edema Stable cardiomegaly Assessment & Plan - Diagnosis (1) Hypotension Qualifiers: Hypotension type: unspecified hypotension type Qualified Code(s): I95.9 - Hypotension, unspecified Is this a current diagnosis for this admission?: Yes (2) Respiratory arrest Is this a current diagnosis for this admission?: Yes (3) ARF (acute renal failure) Qualifiers: Acute renal failure type: unspecified Qualified Code(s): N17.9 - Acute kidney failure, unspecified Is this a current diagnosis for this admission?: Yes (4) Coronary artery disease Qualifiers: Coronary Disease-Associated Artery/Lesion type: [place] artery [place] vs. transplanted heart: [place] heart Associated angina: angina presence unspecified Qualified Code(s): I25.10 - Atherosclerotic heart disease of [place] coronary artery without angina pectoris Is this a current diagnosis for this admission?: Yes (5) Cardiomyopathy Qualifiers: Cardiomyopathy type: dilated Qualified Code(s): I42.0 - Dilated cardiomyopathy Is this a current diagnosis for this admission?: Yes (6) History of implantable cardioverter-defibrillator (ICD) placement Is this a current diagnosis for this admission?: Yes (7) CHF (congestive heart failure) Qualifiers: Congestive heart failure type: combined Congestive heart failure chronicity: chronic Qualified Code(s): I50.42 - Chronic combined systolic (congestive) and diastolic (congestive) heart failure Is this a current diagnosis for this admission?: Yes (8) COPD (chronic obstructive pulmonary disease) Qualifiers: COPD type: COPD with acute exacerbation Qualified Code(s): J44.1 - Chronic obstructive pulmonary disease with (acute) exacerbation Is this a current diagnosis for this admission?: Yes - Notes Notes: Hypotension: Blood pressure now more stable. Patient off vasopressors. Continue to monitor blood pressure Respiratory arrest: Patient on ventilator. Patient currently being ventilated. Most likely COPD exacerbation. Patient is having weaning trials. Atrial fibrillation: Patient has chronic atrial fibrillation. Continue chronic anticoagulation. Rate is well controlled Acute renal failure: Improving. Patient noted to have improved urinary output. Coronary artery disease: Cardiac enzymes were negative. Believe this is stable. Cardiomyopathy: Dilated. Patient has severely depressed LVEF. Status post defibrillator placement: Currently functioning normally. Congestive heart failure: Overall compensated. COPD: Improving. - Time Time with patient: Greater than 35 minutes - CODE STATUS was discussed, patient remains full code. Surrogate decision-maker unchanged. Multiple medical problems were addressed.More than 50% of the time spent coordinating care, discussing management plans with involved caregivers. Management plans discussed with involved personnels. Medical decision making was of moderate to severe complexity.
[2016-03-20] MEDS: ACETAMINOPHEN SOLN 325 MG/10.15 ML UDCUP PO PRN (13:06)
[2016-03-20] MEDS: FENOFIBRATE NANOCRYSTALLIZED 48 MG TABLET NG SCH (17:22)
[2016-03-20] MEDS: FUROSEMIDE INJ/PF 40 MG/4 ML SDV IV SCH (17:23)
[2016-03-20] MEDS: NORMAL SALINE 1000 ML 1,000 ML IV PRN (17:47)
[2016-03-21] MEDS: PROPOFOL 100 ML IV PRN ×7 (00:34→21:20)
[2016-03-21] MEDS: METHYLPREDNISOLONE INJ 125 MG/2 ML SDV IV SCH ×3 (01:49→21:23)
[2016-03-21] MEDS: IPRATROPIUM/ALBUTEROL 0.5-2.5 MG/3 ML AMPUL NEB SCH ×4 (02:16→20:51)
[2016-03-21 04:54] LABS: HEMATOCRIT 43.4 % (37.9-51.0); HEMOGLOBIN 14.3 g/dL (13.5-17.0); HGB HCT DIFFERENCE -0.5; MEAN CORPUSCULAR HEMOGLOBIN 30.1 pg (27.0-33.4); MEAN CORPUSCULAR HGB CONC 32.9 g/dL (32.0-36.0); MEAN CORPUSCULAR VOLUME 92 fl (80-97); RED BLOOD COUNT 4.75 10^6/uL (4.35-5.55); RED CELL DISTRIBUTION WIDTH 15.4 % (11.5-14.0)
[2016-03-21] MEDS: LANSOPRAZOLE 30 MG TAB.RAP.DR NG SCH ×2 (05:35→18:24)
[2016-03-21] MEDS: FUROSEMIDE INJ/PF 40 MG/4 ML SDV IV SCH (05:35)
[2016-03-21] MEDS: CLINDAMYCIN 600 MG/D5W RTU 50 ML IV SCH ×3 (05:35→21:24)
[2016-03-21 06:31] LABS: PROTHROMBIN TIME 19.5 SEC (11.4-15.4)
[2016-03-21 06:33] LABS: ARTERIAL BLOOD O2 SATURATION 96.5 % (94-98)
[2016-03-21 06:56] LABS: ANION GAP 10 (5-19); BLOOD UREA NITROGEN 45 mg/dL (7-20); CARBON DIOXIDE 34 mmol/L (22-30); CHLORIDE 96 mmol/L (98-107); GLUCOSE 147 mg/dL (75-110); MAGNESIUM 2.2 mg/dL (1.6-2.3); POTASSIUM 4.3 mmol/L (3.6-5.0); TRIGLYCERIDES 118 mg/dL (<150)
--- NOTE | 2016-03-21 08:43 | PDOC PROGRESS REPORT ---
Subjective Progress Note for:: 03/21/16 Subjective:: Patient remained on the ventilator. Intubated still and failed extubation yesterday. Patient on Diprivan. Off dopamine . Urine output negative balance of almost 3 L. No reported temperature spikes, nor diarrhea. Chest x-ray shows stable infiltrate or congestion. No respiratory distress reported as well. Physical Exam Vital Signs: Temp Pulse Resp BP Pulse Ox 98.9 F 70 22 H 119/87 H 94 03/20/16 23:40 03/21/16 02:16 03/21/16 06:01 03/21/16 06:00 03/21/16 06:01 Intake & Output 03/20/16 03/21/16 03/22/16 06:59 06:59 06:59 Intake Total 2788 2988 Output Total 2595 5835 400 Balance 193 -7117 -400 Weight 104.9 kg 101.3 kg General appearance: PRESENT: no acute distress, other - Intubated and sedated on mechanical ventilator Head exam: PRESENT: normocephalic Eye exam: PRESENT: conjunctiva pale Mouth exam: PRESENT: moist, neck supple Neck exam: ABSENT: JVD Respiratory exam: PRESENT: clear to auscultation nic, decreased breath sounds - Lower lung [place]. ABSENT: rhonchi, wheezes Cardiovascular exam: PRESENT: irregular rhythm. ABSENT: gallop GI/Abdominal exam: PRESENT: soft. ABSENT: distended, tenderness Extremities exam: PRESENT: +1 edema Psychiatric exam: ABSENT: agitated Focused psych exam: ABSENT: restlessness Skin exam: PRESENT: dry, warm. ABSENT: cyanosis Results Laboratory Results: 03/21/16 04:45 03/21/16 04:45 03/21/16 03/21/16 03/21/16 04:45 04:45 04:45 WBC 6.0 RBC 4.75 Hgb 14.3 Hct 43.4 MCV 92 MCH 30.1 MCHC 32.9 RDW 15.4 H Plt Count 193 Carbonic Acid 1.35 HCO3/H2CO3 Ratio 24:1 ABG pH 7.49 H ABG pCO2 44.9 ABG pO2 79.3 L ABG HCO3 33.5 H ABG O2 Saturation 96.5 ABG Base Excess 9.0 FiO2 45% Sodium 140.0 Potassium 4.3 Chloride 96 L Carbon Dioxide 34 H Anion Gap 10 BUN 45 H Creatinine 0.90 Est GFR ( Amer) > 60 Est GFR (Non-Af Amer) > 60 Glucose 147 H Calcium 9.0 Magnesium 2.2 Triglycerides 118 03/17/16 03/17/16 03/17/16 06:00 06:00 13:35 Creatine Kinase 101 91 CK-MB (CK-2) 5.84 H Troponin I 0.056 03/17/16 03/17/16 03/17/16 13:35 19:05 19:05 Creatine Kinase 65 CK-MB (CK-2) 4.99 H 3.77 Troponin I 0.041 0.036 Impressions: Chest X-Ray 03/21/16 06:00 IMPRESSION: STABLE APPEARANCE OF THE CHEST. SUPPORT DEVICES UNCHANGED. Assessment & Plan - Diagnosis (1) Acute hypoxemic respiratory failure Is this a current diagnosis for this admission?: Yes (2) Aspiration pneumonia Qualifiers: Aspiration pneumonia type: unspecified Lung location: unspecified part of lung Is this a current diagnosis for this admission?: Yes (3) COPD exacerbation Is this a current diagnosis for this admission?: Yes (4) Hypotension Qualifiers: Hypotension type: unspecified hypotension type Qualified Code(s): I95.9 - Hypotension, unspecified Is this a current diagnosis for this admission?: Yes (5) Acute on chronic combined systolic and diastolic CHF (congestive heart failure) Is this a current diagnosis for this admission?: Yes (6) Coagulopathy Is this a current diagnosis for this admission?: Yes (7) Cardiomyopathy Qualifiers: Cardiomyopathy type: dilated Qualified Code(s): I42.0 - Dilated cardiomyopathy Is this a current diagnosis for this admission?: Yes (8) Coronary artery disease Qualifiers: Coronary Disease-Associated Artery/Lesion type: [place] artery [place] vs. transplanted heart: [place] heart Associated angina: angina presence unspecified Qualified Code(s): I25.10 - Atherosclerotic heart disease of [place] coronary artery without angina pectoris Is this a current diagnosis for this admission?: Yes (9) Essential hypertension Is this a current diagnosis for this admission?: Yes (10) Afib Qualifiers: Atrial fibrillation type: unspecified Qualified Code(s): I48.91 - Unspecified atrial fibrillation Is this a current diagnosis for this admission?: Yes (11) Diabetes mellitus type 2 in obese Is this a current diagnosis for this admission?: Yes (12) Seizure disorder Is this a current diagnosis for this admission?: Yes - Time Time Spent with patient: 25-34 minutes - Plan Summary Plan Summary: Continue antibiotics. Continue to wean steroids. We will decrease diuretics as the patient is getting more alkalotic. We will continue supportive care and monitor electrolytes. Weaning as per pulmonary service. Follow-up chest x-ray in the morning. Renew his restraints.
[2016-03-21] MEDS ORDERED: FUROSEMIDE INJ/PF 40 MG/4 ML SDV IV SCH (10:00)
[2016-03-21] MEDS: LEVOFLOXACIN 750 MG/D5W RTU 750 MG/150 ML RTUPB IV SCH (10:56)
[2016-03-21] MEDS: MIDODRINE HCL 5 MG TABLET NG SCH ×3 (11:03→18:25)
[2016-03-21] MEDS: ASPIRIN 81 MG TABLET, ENT COATED PO SCH (11:03)
[2016-03-21] MEDS: EPLERENONE 25 MG TABLET NG SCH ×2 (11:03→18:26)
[2016-03-21] MEDS: DOCUSATE SODIUM 100 MG CAPSULE PO SCH ×2 (11:04→18:26)
[2016-03-21] MEDS: FERROUS SULFATE LIQUID 300 MG/5 ML UDC NG SCH (11:04)
[2016-03-21] MEDS: DIGOXIN 0.125 MG TABLET PO SCH (13:53)
[2016-03-21] MEDS: APIXABAN 5 MG TABLET PO SCH ×2 (13:53→18:24)
[2016-03-21] MEDS: NORMAL SALINE 1000 ML 1,000 ML IV PRN (15:23)
[2016-03-21] MEDS: FENOFIBRATE NANOCRYSTALLIZED 48 MG TABLET NG SCH (18:26)
[2016-03-22] MEDS: PROPOFOL 100 ML IV PRN ×4 (01:24→20:39)
[2016-03-22] MEDS: IPRATROPIUM/ALBUTEROL 0.5-2.5 MG/3 ML AMPUL NEB SCH ×4 (02:42→20:42)
[2016-03-22 04:24] LABS: HEMATOCRIT 47.1 % (37.9-51.0); HEMOGLOBIN 15.3 g/dL (13.5-17.0); HGB HCT DIFFERENCE -1.2; MEAN CORPUSCULAR HEMOGLOBIN 29.8 pg (27.0-33.4); MEAN CORPUSCULAR HGB CONC 32.4 g/dL (32.0-36.0); MEAN CORPUSCULAR VOLUME 92 fl (80-97); RED BLOOD COUNT 5.11 10^6/uL (4.35-5.55); RED CELL DISTRIBUTION WIDTH 15.5 % (11.5-14.0)
[2016-03-22 04:48] LABS: ANION GAP 7 (5-19); BLOOD UREA NITROGEN 47 mg/dL (7-20); CARBON DIOXIDE 39 mmol/L (22-30); CHLORIDE 95 mmol/L (98-107); CREATININE RESULT 0.92 mg/dL (0.52-1.25); GLUCOSE 139 mg/dL (75-110); MAGNESIUM 2.3 mg/dL (1.6-2.3); PHOSPHORUS 3.9 mg/dL (2.5-4.5); POTASSIUM 4.3 mmol/L (3.6-5.0); SODIUM 141.2 mmol/L (137-145)
[2016-03-22 06:01] LABS: ARTERIAL BLOOD BASE EXCESS 10.3 mmol/L
[2016-03-22] MEDS: CLINDAMYCIN 600 MG/D5W RTU 50 ML IV SCH ×3 (06:08→22:42)
[2016-03-22] MEDS: LANSOPRAZOLE 30 MG TAB.RAP.DR NG SCH ×2 (06:10→17:29)
--- NOTE | 2016-03-22 08:41 | PDOC PROGRESS REPORT ---
Subjective Progress Note for:: 03/22/16 Subjective:: Patient's condition remained serious but stable. No reported temperature spikes , respiratory distress, hypotension, diarrhea. Patient remained on the ventilator, and on Diprivan. Off vasopressors. Still being weaned from the ventilator. Urine output negative balance of about 1500 mL. PH on ABG getting alkalotic. Physical Exam Vital Signs: Temp Pulse Resp BP Pulse Ox 98.6 F 70 22 H 107/59 L 93 03/22/16 06:00 03/22/16 02:40 03/22/16 06:01 03/22/16 06:00 03/22/16 06:01 Intake & Output 03/21/16 03/22/16 03/23/16 06:59 06:59 06:59 Intake Total 2988 3152 Output Total 5835 4675 Balance -2847 -1523 Weight 101.3 kg 100.4 kg General appearance: PRESENT: no acute distress, other - Intubated and sedated Head exam: PRESENT: normocephalic Eye exam: PRESENT: conjunctiva pink Mouth exam: PRESENT: moist, neck supple Neck exam: ABSENT: JVD Respiratory exam: PRESENT: clear to auscultation nic - Anteriorly, decreased breath sounds - Posteriorly on the basis Cardiovascular exam: PRESENT: irregular rhythm. ABSENT: gallop GI/Abdominal exam: PRESENT: normal bowel sounds, soft. ABSENT: distended Extremities exam: PRESENT: +1 edema Neurological exam: PRESENT: other - Lightly sedated, moves extremities when touched and pain stimulus. Skin exam: PRESENT: dry, warm. ABSENT: cyanosis Results Laboratory Results: 03/22/16 04:10 03/22/16 04:10 03/22/16 03/22/16 03/22/16 04:10 04:10 05:35 WBC 7.0 RBC 5.11 Hgb 15.3 Hct 47.1 MCV 92 MCH 29.8 MCHC 32.4 RDW 15.5 H Plt Count 189 Carbonic Acid 1.38 H HCO3/H2CO3 Ratio 25:1 ABG pH 7.50 H ABG pCO2 45.9 H ABG pO2 64.3 L ABG HCO3 35.0 H ABG O2 Saturation 94.0 ABG Base Excess 10.3 FiO2 40% Sodium 141.2 Potassium 4.3 Chloride 95 L Carbon Dioxide 39 H Anion Gap 7 BUN 47 H Creatinine 0.92 Est GFR ( Amer) > 60 Est GFR (Non-Af Amer) > 60 Glucose 139 H Calcium 9.0 Phosphorus 3.9 Magnesium 2.3 03/17/16 03/17/16 03/17/16 06:00 06:00 13:35 Creatine Kinase 101 91 CK-MB (CK-2) 5.84 H Troponin I 0.056 03/17/16 03/17/16 03/17/16 13:35 19:05 19:05 Creatine Kinase 65 CK-MB (CK-2) 4.99 H 3.77 Troponin I 0.041 0.036 Impressions: Chest X-Ray 03/22/16 06:00 IMPRESSION: STABLE APPEARANCE OF THE CHEST. SUPPORT DEVICES UNCHANGED. Assessment & Plan - Diagnosis (1) Acute hypoxemic respiratory failure Is this a current diagnosis for this admission?: Yes (2) Aspiration pneumonia Qualifiers: Aspiration pneumonia type: unspecified Lung location: unspecified part of lung Is this a current diagnosis for this admission?: Yes (3) COPD exacerbation Is this a current diagnosis for this admission?: Yes (4) Hypotension Qualifiers: Hypotension type: unspecified hypotension type Qualified Code(s): I95.9 - Hypotension, unspecified Is this a current diagnosis for this admission?: Yes (5) Acute on chronic combined systolic and diastolic CHF (congestive heart failure) Is this a current diagnosis for this admission?: Yes (6) Coagulopathy Is this a current diagnosis for this admission?: Yes (7) Cardiomyopathy Qualifiers: Cardiomyopathy type: dilated Qualified Code(s): I42.0 - Dilated cardiomyopathy Is this a current diagnosis for this admission?: Yes (8) Coronary artery disease Qualifiers: Coronary Disease-Associated Artery/Lesion type: [place] artery [place] vs. transplanted heart: [place] heart Associated angina: angina presence unspecified Qualified Code(s): I25.10 - Atherosclerotic heart disease of [place] coronary artery without angina pectoris Is this a current diagnosis for this admission?: Yes (9) Essential hypertension Is this a current diagnosis for this admission?: Yes (10) Afib Qualifiers: Atrial fibrillation type: unspecified Qualified Code(s): I48.91 - Unspecified atrial fibrillation Is this a current diagnosis for this admission?: Yes (11) Diabetes mellitus type 2 in obese Is this a current diagnosis for this admission?: Yes (12) Seizure disorder Is this a current diagnosis for this admission?: Yes - Time Time Spent with patient: 25-34 minutes - Plan Summary Plan Summary: We will continue antibiotics and ventilatory support, tube feedings and other supportive care. We will decrease the Lasix as the patient is getting alkalotic more. Weaning per pulmonary service. Recheck electrolytes and WBC w / routine follow-up chest x-ray in the morning.
[2016-03-22] MEDS: DOCUSATE SODIUM 100 MG CAPSULE PO SCH ×2 (09:40→17:29)
[2016-03-22] MEDS: FERROUS SULFATE LIQUID 300 MG/5 ML UDC NG SCH (09:40)
[2016-03-22] MEDS: EPLERENONE 25 MG TABLET NG SCH ×2 (09:40→17:29)
[2016-03-22] MEDS: MIDODRINE HCL 5 MG TABLET NG SCH ×3 (09:40→17:29)
[2016-03-22] MEDS: DIGOXIN 0.125 MG TABLET PO SCH (09:41)
[2016-03-22] MEDS: METHYLPREDNISOLONE INJ 125 MG/2 ML SDV IV SCH ×2 (09:41→22:43)
[2016-03-22] MEDS: APIXABAN 5 MG TABLET PO SCH ×2 (09:41→17:29)
[2016-03-22] MEDS: ASPIRIN 81 MG TABLET, ENT COATED PO SCH (09:41)
[2016-03-22] MEDS: LEVOFLOXACIN 750 MG/D5W RTU 750 MG/150 ML RTUPB IV SCH (09:41)
[2016-03-22] MEDS: FUROSEMIDE INJ/PF 40 MG/4 ML SDV IV SCH (11:14)
[2016-03-22 15:43] LABS: ARTERIAL BLOOD BASE EXCESS 10.2 mmol/L
[2016-03-22] MEDS: FENOFIBRATE NANOCRYSTALLIZED 48 MG TABLET NG SCH (17:29)
--- NOTE | 2016-03-22 18:36 | PDOC PROGRESS REPORT ---
[id number]. There is no significant change in general condition, but I believe he is better in being more alert. Patient failed extubation /weaning trials. Patient remains intubated, less sedated, patient however looks comfortable and in acute distress. Patient has paced rhythm. Currently off dopamine. Urine output seems to have improved and is stable. Patient has underlying atrial fibrillation. Occasional VPCs are noted Medications reviewed. Physical Exam Vital Signs: Temp Pulse Resp BP Pulse Ox 98.9 F 86 20 113/68 96 03/20/16 23:40 03/21/16 09:00 03/21/16 12:01 03/21/16 12:01 03/21/16 12:50 Intake & Output 03/20/16 03/21/16 03/22/16 06:59 06:59 06:59 Intake Total 2788 2988 Output Total 2595 5835 1075 Balance 317 -2914 -0627 Weight 104.9 kg 101.3 kg Exam: GENERAL: well-nourished and in no acute distress. Patient is intubated and sedated. Orientation cannot be checked HEAD: Atraumatic, normocephalic. EYES: Pupils equal round and reactive to light, extraocular movements could not be checked, sclera anicteric, conjunctiva are normal. ENT: TMs normal, nares patent, oropharynx clear without exudates. Moist mucous membranes. No oral ulcerations or bleeding gums noted NECK: supple without lymphadenopathy or JVD. Trachea is central. No cervical or axillary lymphadenopathy noted. Carotids are 2+ LUNGS: Breath sounds mostly clear to auscultation patient is noted to have bibasal crackles at the extreme bases CHEST: Palpation of the chest wall shows no significant chest wall tenderness or abnormalities. 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 ABDOMEN: Soft, no significant tenderness appreciated, normoactive bowel sounds. No guarding, no rebound. No rigidity noted . No masses appreciated. EXTREMITIES: Pedal pulses are 1-2+, no calf tenderness noted, 1-2+ bilateral pedal edema noted. No clubbing or cyanosis. NEUROLOGICAL: The patient cannot participate in the neurological exam but no facial asymmetry noted. Extremities slightly hypotonic PSYCH: This cannot be evaluated. Patient cannot participate. SKIN: No significant ecchymosis, rash, or signs of pruritus noted. MUSCULOSKELETAL EXAM: No significant joint swelling noted. Patient cannot participate in musculoskeletal exam Results Laboratory Results: 03/21/16 04:45 03/21/16 04:45 03/21/16 03/21/16 03/21/16 04:45 04:45 04:45 WBC 6.0 RBC 4.75 Hgb 14.3 Hct 43.4 MCV 92 MCH 30.1 MCHC 32.9 RDW 15.4 H Plt Count 193 Carbonic Acid 1.35 HCO3/H2CO3 Ratio 24:1 ABG pH 7.49 H ABG pCO2 44.9 ABG pO2 79.3 L ABG HCO3 33.5 H ABG O2 Saturation 96.5 ABG Base Excess 9.0 FiO2 45% Sodium 140.0 Potassium 4.3 Chloride 96 L Carbon Dioxide 34 H Anion Gap 10 BUN 45 H Creatinine 0.90 Est GFR ( Amer) > 60 Est GFR (Non-Af Amer) > 60 Glucose 147 H Calcium 9.0 Magnesium 2.2 Triglycerides 118 03/17/16 03/17/16 03/17/16 06:00 06:00 13:35 Creatine Kinase 101 91 CK-MB (CK-2) 5.84 H Troponin I 0.056 03/17/16 03/17/16 03/17/16 13:35 19:05 19:05 Creatine Kinase 65 CK-MB (CK-2) 4.99 H 3.77 Troponin I 0.041 0.036 Impressions: Chest X-Ray 03/21/16 06:00 IMPRESSION: STABLE APPEARANCE OF THE CHEST. SUPPORT DEVICES UNCHANGED. Assessment & Plan - Diagnosis (1) Hypotension Qualifiers: Hypotension type: unspecified hypotension type Qualified Code(s): I95.9 - Hypotension, unspecified Is this a current diagnosis for this admission?: Yes (2) Respiratory arrest Is this a current diagnosis for this admission?: Yes (3) ARF (acute renal failure) Qualifiers: Acute renal failure type: unspecified Qualified Code(s): N17.9 - Acute kidney failure, unspecified Is this a current diagnosis for this admission?: Yes (4) Coronary artery disease Qualifiers: Coronary Disease-Associated Artery/Lesion type: [place] artery [place] vs. transplanted heart: [place] heart Associated angina: angina presence unspecified Qualified Code(s): I25.10 - Atherosclerotic heart disease of [place] coronary artery without angina pectoris Is this a current diagnosis for this admission?: Yes (5) Cardiomyopathy Qualifiers: Cardiomyopathy type: dilated Qualified Code(s): I42.0 - Dilated cardiomyopathy Is this a current diagnosis for this admission?: Yes (6) History of implantable cardioverter-defibrillator (ICD) placement Is this a current diagnosis for this admission?: Yes (7) CHF (congestive heart failure) Qualifiers: Congestive heart failure type: combined Congestive heart failure chronicity: chronic Qualified Code(s): I50.42 - Chronic combined systolic (congestive) and diastolic (congestive) heart failure Is this a current diagnosis for this admission?: Yes (8) COPD (chronic obstructive pulmonary disease) Qualifiers: COPD type: COPD with acute exacerbation Qualified Code(s): J44.1 - Chronic obstructive pulmonary disease with (acute) exacerbation Is this a current diagnosis for this admission?: Yes - Notes Notes: There has been no significant change in patient's condition except that he failed weaning trials but is more alert. He tolerates weaning trial for a few hours then becomes tachypneic. His blood pressure has remained stable. His been off vasopressors for at least 48 hours. His kidney functions has improved. Coronary artery disease seems stable. No defibrillator discharges were noted. I'm told by the nurse that defibrillator was checked and seems to be working fine. As regards CHF he seems compensated. COPD seems to be a significant problem which may be preventing extubation. Patient being followed by electrician front. At this point no medication changes done. Patient's medical regimen was however reviewed. - Time Time with patient: 15-25 minutes - CODE STATUS was discussed, patient remains full code. Surrogate decision-maker unchanged. Multiple medical problems were addressed.More than 50% of the time spent coordinating care, discussing management plans with involved caregivers. Management plans discussed with involved personnels. Medical decision making was of moderate complexity.
--- NOTE | 2016-03-22 18:48 | PDOC PROGRESS REPORT ---
Subjective Progress Note for:: 03/22/16 Subjective:: Patient about the same and has made some progress. I'm told by the nurse that he is more alert. Patient failed extubation /weaning trials. Patient tolerated weaning trial for a few hours and then became tachypneic with increased respiratory rate Patient remains intubated, less sedated, patient however looks comfortable and in acute distress. Patient has paced rhythm. Occasional VPCs are noted. Currently off dopamine for several days. Urine output seems to have improved and is stable. Patient has underlying atrial fibrillation. Occasional VPCs are noted Medications reviewed. Physical Exam Vital Signs: Temp Pulse Resp BP Pulse Ox 99.2 F 73 17 101/63 93 03/22/16 16:00 03/22/16 16:00 03/22/16 18:00 03/22/16 18:00 03/22/16 18:00 Intake & Output 03/21/16 03/22/16 03/23/16 06:59 06:59 06:59 Intake Total 2988 3152 1274 Output Total 5848 4675 975 Balance -2847 -1523 299 Weight 101.3 kg 100.4 kg Exam: GENERAL: well-nourished and in no acute distress. Patient is intubated and sedated. Orientation cannot be checked HEAD: Atraumatic, normocephalic. EYES: Pupils equal round and reactive to light, extraocular movements could not be checked, sclera anicteric, conjunctiva are normal. ENT: TMs normal, nares patent, oropharynx clear without exudates. Moist mucous membranes. No oral ulcerations or bleeding gums noted NECK: supple without lymphadenopathy or JVD. Trachea is central. No cervical or axillary lymphadenopathy noted. Carotids are 2+ LUNGS: Breath sounds mostly clear to auscultation patient is noted to have bibasal crackles at the extreme bases CHEST: Palpation of the chest wall shows no significant chest wall tenderness or abnormalities. HEART: [place] [employer] CH[employer]F, No PSH, 2/6 CHEO aortic area, 1/6 carrasco systolic murmur mitral area , no rubs or gallops. ABDOMEN: Soft, no significant tenderness appreciated, normoactive bowel sounds. No guarding, no rebound. No rigidity noted . No masses appreciated. EXTREMITIES: Pedal pulses are 1-2+, no calf tenderness noted, 1-2+ bilateral pedal edema noted. No clubbing or cyanosis. NEUROLOGICAL: The patient cannot participate in the neurological exam but no facial asymmetry noted. Extremities slightly hypotonic PSYCH: This cannot be evaluated. Patient cannot participate. SKIN: No significant ecchymosis, rash, or signs of pruritus noted. MUSCULOSKELETAL EXAM: No significant joint swelling noted. Patient cannot participate in musculoskeletal exam Results Laboratory Results: 03/22/16 04:10 03/22/16 04:10 03/22/16 03/22/16 03/22/16 04:10 04:10 05:35 WBC 7.0 RBC 5.11 Hgb 15.3 Hct 47.1 MCV 92 MCH 29.8 MCHC 32.4 RDW 15.5 H Plt Count 189 Carbonic Acid 1.38 H HCO3/H2CO3 Ratio 25:1 ABG pH 7.50 H ABG pCO2 45.9 H ABG pO2 64.3 L ABG HCO3 35.0 H ABG O2 Saturation 94.0 ABG Base Excess 10.3 FiO2 40% Sodium 141.2 Potassium 4.3 Chloride 95 L Carbon Dioxide 39 H Anion Gap 7 BUN 47 H Creatinine 0.92 Est GFR ( Amer) > 60 Est GFR (Non-Af Amer) > 60 Glucose 139 H Calcium 9.0 Phosphorus 3.9 Magnesium 2.3 03/22/16 15:20 WBC RBC Hgb Hct MCV MCH MCHC RDW Plt Count Carbonic Acid 1.65 H HCO3/H2CO3 Ratio 22:1 ABG pH 7.44 ABG pCO2 54.9 H ABG pO2 79.7 L ABG HCO3 36.6 H ABG O2 Saturation 96.0 ABG Base Excess 10.2 FiO2 40% Sodium Potassium Chloride Carbon Dioxide Anion Gap BUN Creatinine Est GFR ( Amer) Est GFR (Non-Af Amer) Glucose Calcium Phosphorus Magnesium 03/17/16 03/17/16 03/17/16 06:00 06:00 13:35 Creatine Kinase 101 91 CK-MB (CK-2) 5.84 H Troponin I 0.056 03/17/16 03/17/16 03/17/16 13:35 19:05 19:05 Creatine Kinase 65 CK-MB (CK-2) 4.99 H 3.77 Troponin I 0.041 0.036 Impressions: Chest X-Ray 03/22/16 06:00 IMPRESSION: STABLE APPEARANCE OF THE CHEST. SUPPORT DEVICES UNCHANGED. Assessment & Plan - Diagnosis (1) Hypotension Qualifiers: Hypotension type: unspecified hypotension type Qualified Code(s): I95.9 - Hypotension, unspecified Is this a current diagnosis for this admission?: Yes (2) Respiratory arrest Is this a current diagnosis for this admission?: Yes (3) ARF (acute renal failure) Qualifiers: Acute renal failure type: unspecified Qualified Code(s): N17.9 - Acute kidney failure, unspecified Is this a current diagnosis for this admission?: Yes (4) Coronary artery disease Qualifiers: Coronary Disease-Associated Artery/Lesion type: [place] artery [place] vs. transplanted heart: [place] heart Associated angina: angina presence unspecified Qualified Code(s): I25.10 - Atherosclerotic heart disease of [place] coronary artery without angina pectoris Is this a current diagnosis for this admission?: Yes (5) Cardiomyopathy Qualifiers: Cardiomyopathy type: dilated Qualified Code(s): I42.0 - Dilated cardiomyopathy Is this a current diagnosis for this admission?: Yes (6) History of implantable cardioverter-defibrillator (ICD) placement Is this a current diagnosis for this admission?: Yes (7) CHF (congestive heart failure) Qualifiers: Congestive heart failure type: combined Congestive heart failure chronicity: chronic Qualified Code(s): I50.42 - Chronic combined systolic (congestive) and diastolic (congestive) heart failure Is this a current diagnosis for this admission?: Yes (8) COPD (chronic obstructive pulmonary disease) Qualifiers: COPD type: COPD with acute exacerbation Qualified Code(s): J44.1 - Chronic obstructive pulmonary disease with (acute) exacerbation Is this a current diagnosis for this admission?: Yes - Notes Notes: Hypo-tension: This has resolved. Patient no longer on any vasopressors. Blood pressures has been stable. Respiratory failure: Patient still needing intubation and artificial ventilation. Patient failed extubation/weaning trials. Acute renal failure: This has resolved. Patient maintaining normal renal functions. Coronary artery disease: Currently stable. Cardiomyopathy: No recent defibrillator shocks noted. Congestive heart failure: Seems compensated. Continue some baseline diuretics. COPD: Severe. Patient being followed by railroad firer. Dr. Duvall to follow from tomorrow. - Time Time with patient: 15-25 minutes - CODE STATUS was discussed, patient remains full code. Surrogate decision-maker unchanged. Multiple medical problems were addressed.More than 50% of the time spent coordinating care, discussing management plans with involved caregivers. Management plans discussed with involved personnels. Medical decision making was of moderate complexity.
[2016-03-22] MEDS: NORMAL SALINE 1000 ML 1,000 ML IV PRN (20:39)
[2016-03-23] MEDS: IPRATROPIUM/ALBUTEROL 0.5-2.5 MG/3 ML AMPUL NEB SCH ×4 (02:43→19:48)
[2016-03-23] MEDS: PROPOFOL 100 ML IV PRN (04:35)
[2016-03-23] MEDS: LANSOPRAZOLE 30 MG TAB.RAP.DR NG SCH ×2 (06:42→18:10)
[2016-03-23] MEDS: CLINDAMYCIN 600 MG/D5W RTU 50 ML IV SCH ×3 (06:42→21:13)
[2016-03-23 07:25] LABS: ARTERIAL BLOOD BASE EXCESS 10.9 mmol/L; ARTERIAL BLOOD O2 SATURATION 95.6 % (94-98)
[2016-03-23 07:27] LABS: HEMOGLOBIN 14.6 g/dL (13.5-17.0); HGB HCT DIFFERENCE -2.2; MEAN CORPUSCULAR HEMOGLOBIN 29.4 pg (27.0-33.4); MEAN CORPUSCULAR HGB CONC 31.7 g/dL (32.0-36.0); MEAN CORPUSCULAR VOLUME 93 fl (80-97); RED BLOOD COUNT 4.97 10^6/uL (4.35-5.55); RED CELL DISTRIBUTION WIDTH 15.7 % (11.5-14.0); WHITE BLOOD COUNT 8.1 10^3/uL (4.0-10.5)
[2016-03-23 07:46] LABS: BLOOD UREA NITROGEN 44 mg/dL (7-20); CALCIUM 8.7 mg/dL (8.4-10.2); CHLORIDE 95 mmol/L (98-107); CREATININE RESULT 0.86 mg/dL (0.52-1.25); GLUCOSE 83 mg/dL (75-110); SODIUM 141.7 mmol/L (137-145)
[2016-03-23 08:08] LABS: ANION GAP 8 (5-19)
[2016-03-23 08:11] LABS: CARBON DIOXIDE 39 mmol/L (22-30)
--- NOTE | 2016-03-23 08:37 | PDOC PROGRESS REPORT ---
Subjective Progress Note for:: 03/23/16 Subjective:: Patient failed weaning yesterday. Urine output +100ml balance today. No reported temperature spikes, respiratory distress, diarrhea. Patient remained on diprivan and mechanical ventilator. 4 trial of weaning again today. Chest x -ray is stable without any worsening infiltrates. Physical Exam Vital Signs: Temp Pulse Resp BP Pulse Ox 98.6 F 73 22 H 101/66 96 03/23/16 08:00 03/23/16 08:00 03/23/16 08:00 03/23/16 08:00 03/23/16 08:00 Intake & Output 03/22/16 03/23/16 03/24/16 06:59 06:59 06:59 Intake Total 3152 2238 Output Total 4675 2125 40 Balance -1523 113 -40 Weight 100.4 kg 102 kg General appearance: PRESENT: no acute distress, other - Sedated and intubated Head exam: PRESENT: normocephalic Eye exam: PRESENT: conjunctiva pink Mouth exam: PRESENT: moist, neck supple Neck exam: ABSENT: JVD Respiratory exam: PRESENT: clear to auscultation nic. ABSENT: rhonchi, wheezes Cardiovascular exam: PRESENT: irregular rhythm. ABSENT: gallop GI/Abdominal exam: PRESENT: hypoactive bowel sounds, soft. ABSENT: distended Extremities exam: PRESENT: +1 edema - Stable Skin exam: PRESENT: dry, warm. ABSENT: cyanosis Results Laboratory Results: 03/23/16 06:55 03/23/16 06:55 03/22/16 03/23/16 03/23/16 15:20 06:55 06:55 WBC 8.1 RBC 4.97 Hgb 14.6 Hct 46.0 MCV 93 MCH 29.4 MCHC 31.7 L RDW 15.7 H Plt Count 184 Carbonic Acid 1.65 H HCO3/H2CO3 Ratio 22:1 ABG pH 7.44 ABG pCO2 54.9 H ABG pO2 79.7 L ABG HCO3 36.6 H ABG O2 Saturation 96.0 ABG Base Excess 10.2 FiO2 40% Sodium 141.7 Potassium 4.0 Chloride 95 L Carbon Dioxide 39 H Anion Gap 8 BUN 44 H Creatinine 0.86 Est GFR ( Amer) > 60 Est GFR (Non-Af Amer) > 60 Glucose 83 Calcium 8.7 03/23/16 06:55 WBC RBC Hgb Hct MCV MCH MCHC RDW Plt Count Carbonic Acid 1.68 H HCO3/H2CO3 Ratio 22:1 ABG pH 7.44 ABG pCO2 55.8 H ABG pO2 77.4 L ABG HCO3 37.4 H ABG O2 Saturation 95.6 ABG Base Excess 10.9 FiO2 40% Sodium Potassium Chloride Carbon Dioxide Anion Gap BUN Creatinine Est GFR ( Amer) Est GFR (Non-Af Amer) Glucose Calcium 03/17/16 03/17/16 03/17/16 06:00 06:00 13:35 Creatine Kinase 101 91 CK-MB (CK-2) 5.84 H Troponin I 0.056 03/17/16 03/17/16 03/17/16 13:35 19:05 19:05 Creatine Kinase 65 CK-MB (CK-2) 4.99 H 3.77 Troponin I 0.041 0.036 Impressions: Chest X-Ray 03/23/16 06:00 IMPRESSION: STABLE APPEARANCE OF THE CHEST. SUPPORT DEVICES UNCHANGED. Assessment & Plan - Diagnosis (1) Acute hypoxemic respiratory failure Is this a current diagnosis for this admission?: Yes (2) Aspiration pneumonia Qualifiers: Aspiration pneumonia type: unspecified Lung location: unspecified part of lung Is this a current diagnosis for this admission?: Yes (3) COPD exacerbation Is this a current diagnosis for this admission?: Yes (4) Hypotension Qualifiers: Hypotension type: unspecified hypotension type Qualified Code(s): I95.9 - Hypotension, unspecified Is this a current diagnosis for this admission?: Yes (5) Acute on chronic combined systolic and diastolic CHF (congestive heart failure) Is this a current diagnosis for this admission?: Yes (6) Coagulopathy Is this a current diagnosis for this admission?: Yes (7) Cardiomyopathy Qualifiers: Cardiomyopathy type: dilated Qualified Code(s): I42.0 - Dilated cardiomyopathy Is this a current diagnosis for this admission?: Yes (8) Coronary artery disease Qualifiers: Coronary Disease-Associated Artery/Lesion type: [place] artery [place] vs. transplanted heart: [place] heart Associated angina: angina presence unspecified Qualified Code(s): I25.10 - Atherosclerotic heart disease of [place] coronary artery without angina pectoris Is this a current diagnosis for this admission?: Yes (9) Essential hypertension Is this a current diagnosis for this admission?: Yes (10) Afib Qualifiers: Atrial fibrillation type: unspecified Qualified Code(s): I48.91 - Unspecified atrial fibrillation Is this a current diagnosis for this admission?: Yes (11) Diabetes mellitus type 2 in obese Is this a current diagnosis for this admission?: Yes (12) Seizure disorder Is this a current diagnosis for this admission?: Yes - Time Time Spent with patient: 25-34 minutes - Plan Summary Plan Summary: For trial of weaning again today. Continue to wean steroids. Continue current antibiotics. Continue tube feedings and supportive care. Routine labs in the morning. Follow-up chest x-ray in the morning. Renew his restraints. Patient has been off vasopressors for several days. Alkalosis is improving. We'll keep current diuretic dose.
[2016-03-23] MEDS: APIXABAN 5 MG TABLET PO SCH ×2 (10:45→18:10)
[2016-03-23] MEDS: METHYLPREDNISOLONE INJ 125 MG/2 ML SDV IV SCH ×2 (10:45→21:13)
[2016-03-23] MEDS: FERROUS SULFATE LIQUID 300 MG/5 ML UDC NG SCH (10:45)
[2016-03-23] MEDS: ASPIRIN 81 MG TABLET, ENT COATED PO SCH (10:45)
[2016-03-23] MEDS: DIGOXIN 0.125 MG TABLET PO SCH (10:45)
[2016-03-23] MEDS: DOCUSATE SODIUM 100 MG CAPSULE PO SCH ×2 (10:45→18:10)
[2016-03-23] MEDS: EPLERENONE 25 MG TABLET NG SCH ×2 (10:45→18:10)
[2016-03-23] MEDS: LEVOFLOXACIN 750 MG/D5W RTU 750 MG/150 ML RTUPB IV SCH (10:46)
[2016-03-23] MEDS: FUROSEMIDE INJ/PF 40 MG/4 ML SDV IV SCH (10:46)
[2016-03-23] MEDS: MIDODRINE HCL 5 MG TABLET NG SCH ×3 (10:47→18:10)
[2016-03-23 14:48] LABS: ARTERIAL BLOOD BASE EXCESS 11.9 mmol/L; ARTERIAL BLOOD O2 SATURATION 97.6 % (94-98)
[2016-03-23] MEDS ORDERED: BISACODYL 10 MG SUPP.RECT PR ONE (15:00)
[2016-03-23] MEDS: FENOFIBRATE NANOCRYSTALLIZED 48 MG TABLET NG SCH (18:10)
--- NOTE | 2016-03-23 21:58 | PDOC PROGRESS REPORT ---
Subjective Progress Note for:: 03/23/16 Subjective:: Patient about the same and has made some progress. There is no significant change in general condition, but I believe he is better in being more alert. Patient currently undergoing extubation /weaning trials. Patient however looks comfortable and in acute distress. Patient has paced rhythm. Currently off dopamine. Urine output seems to have improved and is stable. Patient has underlying atrial fibrillation. Occasional VPCs are noted Medications reviewed. Physical Exam Vital Signs: Temp Pulse Resp BP Pulse Ox 99.1 F 93 22 H 108/83 98 03/23/16 18:56 03/23/16 19:49 03/23/16 19:48 03/23/16 18:56 03/23/16 19:48 Intake & Output 03/22/16 03/23/16 03/24/16 06:59 06:59 06:59 Intake Total 3152 2238 728 Output Total 4675 2125 1700 Balance -1523 113 -972 Weight 100.4 kg 102 kg Exam: GENERAL: well-nourished and in no acute distress. Patient is intubated.. Orientation cannot be checked HEAD: Atraumatic, normocephalic. EYES: Pupils equal round and reactive to light, extraocular movements could not be checked, sclera anicteric, conjunctiva are normal. ENT: TMs normal, nares patent, oropharynx clear without exudates. Moist mucous membranes. No oral ulcerations or bleeding gums noted NECK: supple without lymphadenopathy or JVD. Trachea is central. No cervical or axillary lymphadenopathy noted. Carotids are 2+ LUNGS: Breath sounds mostly clear to auscultation patient is noted to have bibasal crackles at the extreme bases CHEST: Palpation of the chest wall shows no significant chest wall tenderness or abnormalities. HEART: [place] [employer], No PSH, 2/6 CHEO aortic area, 1/6 carrasco systolic murmur mitral area , no rubs or gallops. ABDOMEN: Soft, no significant tenderness appreciated, normoactive bowel sounds. No guarding, no rebound. No rigidity noted . No masses appreciated. EXTREMITIES: Pedal pulses are 1-2+, no calf tenderness noted, 1+ pedal edema noted. No clubbing or cyanosis. NEUROLOGICAL: The patient cannot participate in the neurological exam but no facial asymmetry noted. Extremities slightly hypotonic PSYCH: This cannot be evaluated. Patient cannot participate. SKIN: No significant ecchymosis, rash, or signs of pruritus noted. MUSCULOSKELETAL EXAM: No significant joint swelling noted. Patient cannot participate in musculoskeletal exam Results Laboratory Results: 03/23/16 06:55 03/23/16 06:55 03/23/16 03/23/16 03/23/16 06:55 06:55 06:55 WBC 8.1 RBC 4.97 Hgb 14.6 Hct 46.0 MCV 93 MCH 29.4 MCHC 31.7 L RDW 15.7 H Plt Count 184 Carbonic Acid 1.68 H HCO3/H2CO3 Ratio 22:1 ABG pH 7.44 ABG pCO2 55.8 H ABG pO2 77.4 L ABG HCO3 37.4 H ABG O2 Saturation 95.6 ABG Base Excess 10.9 FiO2 40% Sodium 141.7 Potassium 4.0 Chloride 95 L Carbon Dioxide 39 H Anion Gap 8 BUN 44 H Creatinine 0.86 Est GFR ( Amer) > 60 Est GFR (Non-Af Amer) > 60 Glucose 83 Calcium 8.7 03/23/16 14:19 WBC RBC Hgb Hct MCV MCH MCHC RDW Plt Count Carbonic Acid 1.93 H HCO3/H2CO3 Ratio 20:1 ABG pH 7.41 ABG pCO2 64.2 H ABG pO2 103.8 H ABG HCO3 39.9 H ABG O2 Saturation 97.6 ABG Base Excess 11.9 FiO2 50% Sodium Potassium Chloride Carbon Dioxide Anion Gap BUN Creatinine Est GFR ( Amer) Est GFR (Non-Af Amer) Glucose Calcium 03/17/16 03/17/16 03/17/16 06:00 06:00 13:35 Creatine Kinase 101 91 CK-MB (CK-2) 5.84 H Troponin I 0.056 03/17/16 03/17/16 03/17/16 13:35 19:05 19:05 Creatine Kinase 65 CK-MB (CK-2) 4.99 H 3.77 Troponin I 0.041 0.036 Impressions: Chest X-Ray 03/23/16 06:00 IMPRESSION: STABLE APPEARANCE OF THE CHEST. SUPPORT DEVICES UNCHANGED. Assessment & Plan - Diagnosis (1) Hypotension Qualifiers: Hypotension type: unspecified hypotension type Qualified Code(s): I95.9 - Hypotension, unspecified Is this a current diagnosis for this admission?: Yes (2) Respiratory arrest Is this a current diagnosis for this admission?: Yes (3) ARF (acute renal failure) Qualifiers: Acute renal failure type: unspecified Qualified Code(s): N17.9 - Acute kidney failure, unspecified Is this a current diagnosis for this admission?: Yes (4) Coronary artery disease Qualifiers: Coronary Disease-Associated Artery/Lesion type: [place] artery [place] vs. transplanted heart: [place] heart Associated angina: angina presence unspecified Qualified Code(s): I25.10 - Atherosclerotic heart disease of [place] coronary artery without angina pectoris Is this a current diagnosis for this admission?: Yes (5) Cardiomyopathy Qualifiers: Cardiomyopathy type: dilated Qualified Code(s): I42.0 - Dilated cardiomyopathy Is this a current diagnosis for this admission?: Yes (6) History of implantable cardioverter-defibrillator (ICD) placement Is this a current diagnosis for this admission?: Yes (7) CHF (congestive heart failure) Qualifiers: Congestive heart failure type: combined Congestive heart failure chronicity: chronic Qualified Code(s): I50.42 - Chronic combined systolic (congestive) and diastolic (congestive) heart failure Is this a current diagnosis for this admission?: Yes (8) COPD (chronic obstructive pulmonary disease) Qualifiers: COPD type: COPD with acute exacerbation Qualified Code(s): J44.1 - Chronic obstructive pulmonary disease with (acute) exacerbation Is this a current diagnosis for this admission?: Yes - Notes Notes: Patient main problem symptoms respiratory failure and difficult to wean from ventilator. Patient currently having weaning trials. Cardiac-house he seems stable. CHF seems compensated. He is not had any recent defibrillator discharges. He is currently being managed by railroad operating engineer and highway research engineer as well. At this point patient's medical regimen was reviewed. It is felt to be relatively satisfactory. Dr. Duavll to follow from tomorrow. CODE STATUS was discussed, patient remains full code. Surrogate decision-maker unchanged. Multiple medical problems were addressed. - Time Time with patient: 15-25 minutes Medications reviewed and adjusted accordingly: Yes
[2016-03-24] MEDS: IPRATROPIUM/ALBUTEROL 0.5-2.5 MG/3 ML AMPUL NEB SCH ×4 (02:55→20:06)
[2016-03-24 04:44] LABS: ARTERIAL BLOOD BASE EXCESS 9.2 mmol/L; ARTERIAL BLOOD O2 SATURATION 97.4 % (94-98)
[2016-03-24 05:09] LABS: HEMATOCRIT 46.9 % (37.9-51.0); HEMOGLOBIN 15.2 g/dL (13.5-17.0); HGB HCT DIFFERENCE -1.3; MEAN CORPUSCULAR HEMOGLOBIN 29.6 pg (27.0-33.4); MEAN CORPUSCULAR HGB CONC 32.5 g/dL (32.0-36.0); MEAN CORPUSCULAR VOLUME 91 fl (80-97); RED BLOOD COUNT 5.15 10^6/uL (4.35-5.55); RED CELL DISTRIBUTION WIDTH 15.6 % (11.5-14.0); WHITE BLOOD COUNT 8.6 10^3/uL (4.0-10.5)
[2016-03-24 05:15] LABS: ANION GAP 8 (5-19); BLOOD UREA NITROGEN 41 mg/dL (7-20); CALCIUM 9.1 mg/dL (8.4-10.2); CARBON DIOXIDE 39 mmol/L (22-30); CHLORIDE 98 mmol/L (98-107); CREATININE RESULT 0.69 mg/dL (0.52-1.25); GLUCOSE 99 mg/dL (75-110); MAGNESIUM 2.4 mg/dL (1.6-2.3); PHOSPHORUS 3.9 mg/dL (2.5-4.5); POTASSIUM 4.3 mmol/L (3.6-5.0); SODIUM 144.7 mmol/L (137-145)
[2016-03-24] MEDS: LANSOPRAZOLE 30 MG TAB.RAP.DR NG SCH ×2 (05:29→18:18)
[2016-03-24] MEDS: CLINDAMYCIN 600 MG/D5W RTU 50 ML IV SCH (05:30)
[2016-03-24] MEDS: FUROSEMIDE INJ/PF 40 MG/4 ML SDV IV SCH (10:56)
[2016-03-24] MEDS: METHYLPREDNISOLONE INJ 125 MG/2 ML SDV IV SCH ×2 (10:57→21:13)
[2016-03-24] MEDS: EPLERENONE 25 MG TABLET NG SCH ×2 (10:58→20:57)
[2016-03-24] MEDS: APIXABAN 5 MG TABLET PO SCH ×2 (10:58→20:57)
[2016-03-24] MEDS: MIDODRINE HCL 5 MG TABLET NG SCH ×3 (10:58→20:57)
[2016-03-24] MEDS: ASPIRIN 81 MG TABLET, ENT COATED PO SCH (10:58)
[2016-03-24] MEDS: DIGOXIN 0.125 MG TABLET PO SCH (10:58)
[2016-03-24] MEDS: FERROUS SULFATE LIQUID 300 MG/5 ML UDC NG SCH (10:58)
[2016-03-24] MEDS: DOCUSATE SODIUM 100 MG CAPSULE PO SCH ×2 (10:58→20:57)
--- NOTE | 2016-03-24 12:37 | PDOC PROGRESS REPORT ---
Subjective Progress Note for:: 03/24/16 Subjective:: Patient was extubated yesterday. He is wearing a BiPAP the time my exam and denies any chest pain or shortness of breath currently. Physical Exam Vital Signs: Temp Pulse Resp BP Pulse Ox 98.1 F 75 16 117/75 93 03/24/16 12:00 03/24/16 12:00 03/24/16 12:00 03/24/16 12:00 03/24/16 12:00 Intake & Output 03/23/16 03/24/16 03/25/16 06:59 06:59 06:59 Intake Total 2238 903 Output Total 2125 2550 650 Balance 113 -1647 -650 Weight 102 kg 99.7 kg General appearance: PRESENT: no acute distress Eye exam: PRESENT: conjunctiva pink. ABSENT: scleral icterus Ear exam: PRESENT: normal external ear exam Mouth exam: PRESENT: moist, tongue midline Neck exam: ABSENT: JVD Respiratory exam: PRESENT: rhonchi - Coarse rhonchi bilaterally. Cardiovascular exam: PRESENT: RRR, systolic murmur - 2/6 systolic murmur.. ABSENT: diastolic murmur, rubs GI/Abdominal exam: PRESENT: normal bowel sounds, soft. ABSENT: distended, guarding, mass, organolmegaly, rebound, tenderness Extremities exam: ABSENT: calf tenderness, clubbing, pedal edema Neurological exam: PRESENT: alert, awake, oriented to person, oriented to place , oriented to time Psychiatric exam: PRESENT: appropriate affect Skin exam: PRESENT: dry, intact, warm. ABSENT: cyanosis, rash Results Laboratory Results: 03/24/16 04:24 03/24/16 04:24 03/23/16 03/24/16 03/24/16 14:19 04:24 04:24 WBC RBC Hgb Hct MCV MCH MCHC RDW Plt Count Carbonic Acid 1.93 H 1.64 H HCO3/H2CO3 Ratio 20:1 21:1 ABG pH 7.41 7.43 ABG pCO2 64.2 H 54.6 H ABG pO2 103.8 H 96.2 ABG HCO3 39.9 H 35.7 H ABG O2 Saturation 97.6 97.4 ABG Base Excess 11.9 9.2 FiO2 50% 40% Sodium 144.7 Potassium 4.3 Chloride 98 Carbon Dioxide 39 H Anion Gap 8 BUN 41 H Creatinine 0.69 Est GFR ( Amer) > 60 Est GFR (Non-Af Amer) > 60 Glucose 99 Calcium 9.1 Phosphorus 3.9 Magnesium 2.4 H 03/24/16 04:24 WBC 8.6 RBC 5.15 Hgb 15.2 Hct 46.9 MCV 91 MCH 29.6 MCHC 32.5 RDW 15.6 H Plt Count 172 Carbonic Acid HCO3/H2CO3 Ratio ABG pH ABG pCO2 ABG pO2 ABG HCO3 ABG O2 Saturation ABG Base Excess FiO2 Sodium Potassium Chloride Carbon Dioxide Anion Gap BUN Creatinine Est GFR ( Amer) Est GFR (Non-Af Amer) Glucose Calcium Phosphorus Magnesium 03/17/16 03/17/16 03/17/16 06:00 06:00 13:35 Creatine Kinase 101 91 CK-MB (CK-2) 5.84 H Troponin I 0.056 03/17/16 03/17/16 03/17/16 13:35 19:05 19:05 Creatine Kinase 65 CK-MB (CK-2) 4.99 H 3.77 Troponin I 0.041 0.036 Impressions: Chest X-Ray 03/24/16 06:00 IMPRESSION: Stable appearance. Assessment & Plan - Diagnosis (1) Acute hypoxemic respiratory failure Is this a current diagnosis for this admission?: YesPlan: This is secondary to his aspiration pneumonia as well as COPD exacerbation and congestive heart failure. Patient was extubated yesterday and is doing well. He currently is requiring a BiPAP and wean this off. We'll continue with the antibiotics, IV steroids, IV Lasix. (2) Aspiration pneumonia Qualifiers: Aspiration pneumonia type: unspecified Lung location: unspecified part of lung Is this a current diagnosis for this admission?: YesPlan: Patient is on clindamycin. We'll continue with that. Culture negative so far. (3) COPD exacerbation Is this a current diagnosis for this admission?: YesPlan: Patient is getting nebulizers and IV steroids. Will continue with treatment. (4) Systolic and diastolic CHF, chronic Is this a current diagnosis for this admission?: YesPlan: The patient is improving with IV Lasix and we'll continue with that. Patient is being followed by cardiology also. Their help is appreciated. (5) ARF (acute renal failure) Qualifiers: Acute renal failure type: unspecified Qualified Code(s): N17.9 - Acute kidney failure, unspecified Is this a current diagnosis for this admission?: YesPlan: Resolved. (6) Anemia Qualifiers: Anemia type: iron deficiency Iron deficiency anemia type: unspecified iron deficiency Qualified Code(s): D50.9 - Iron deficiency anemia, unspecified Is this a current diagnosis for this admission?: YesPlan: Hemoglobin has remained stable. (7) Diabetes type 2, controlled Is this a current diagnosis for this admission?: YesPlan: Blood sugars have been stable. Blood sugars have ranged from the 80s to 130s. (8) Coronary artery disease Qualifiers: Coronary Disease-Associated Artery/Lesion type: [place] artery [place] vs. transplanted heart: [place] heart Associated angina: angina presence unspecified Qualified Code(s): I25.10 - Atherosclerotic heart disease of [place] coronary artery without angina pectoris Is this a current diagnosis for this admission?: YesPlan: Denies any chest pain. Continue with aspirin. (9) Anxiety Is this a current diagnosis for this admission?: YesPlan: Stable. (10) GERD (gastroesophageal reflux disease) Is this a current diagnosis for this admission?: YesPlan: Continue Protonix. (11) Seizure disorder Is this a current diagnosis for this admission?: YesPlan: No evidence for seizures. (12) Morbid obesity with BMI of 40.0-44.9, adult Is this a current diagnosis for this admission?: Yes (13) History of implantable cardioverter-defibrillator (ICD) placement Is this a current diagnosis for this admission?: Yes - Time Time Spent with patient: 35 or more minutes - Inpatient Certification Medical Necessity: Need Close Monitoring Due to Risk of Patient Decompensation, Need for IV Antibiotics - Plan Summary Plan Summary: The patient has improved. We will move out of the intensive care unit to [facility] [place].
[2016-03-24] MEDS: FENOFIBRATE NANOCRYSTALLIZED 48 MG TABLET NG SCH (18:18)
--- NOTE | 2016-03-24 21:02 | PDOC PROGRESS REPORT ---
Subjective Progress Note for:: 03/24/16 Subjective:: Patient was extubated yesterday. Patient however looks comfortable and in acute distress. Patient has paced rhythm. Currently off dopamine for several days. Urine output seems to have improved and is stable. Patient has underlying atrial fibrillation. Occasional VPCs are noted Medications reviewed. Physical Exam Vital Signs: Temp Pulse Resp BP Pulse Ox 98.4 F 79 18 113/80 93 03/24/16 16:00 03/24/16 18:00 03/24/16 18:01 03/24/16 18:01 03/24/16 18:01 Intake & Output 03/23/16 03/24/16 03/25/16 06:59 06:59 06:59 Intake Total 2238 903 0 Output Total 2125 2550 1325 Balance 113 -1647 -1325 Weight 102 kg 99.7 kg Exam: GENERAL: well-nourished and in no acute distress. Patient is alert but does not seem to be oriented to place time or person. HEAD: Atraumatic, normocephalic. EYES: Pupils equal round and reactive to light, extraocular movements intact, sclera anicteric, conjunctiva are normal. ENT: TMs normal, nares patent, oropharynx clear without exudates. Moist mucous membranes. No oral ulcerations or bleeding gums noted NECK: supple without lymphadenopathy or JVD. Trachea is central. No cervical or axillary lymphadenopathy noted. Carotids are 2+ LUNGS: Breath sounds bibasilar fine crackles at bases. No significant dullness noted. CHEST: Palpation of chest wall shows no significant chest wall tenderness. HEART: [place] RECORDER GRAVITY PROSPECTING, No PSH, 2/6 CHEO aortic area, 1/6 carrasco systolic murmur mitral area, rubs or gallops. ABDOMEN: Soft, no significant tenderness appreciated, normoactive bowel sounds. No guarding, no rebound. No rigidity noted . No masses appreciated. EXTREMITIES: Pedal pulses are 1-2+, no calf tenderness noted, Trace + pedal edema noted. No clubbing or cyanosis. NEUROLOGICAL: Patient is alert but is not able to participate in neurological exam because of patient's current mental status PSYCH: Patient cannot participate in a neurologic and psych exam because of the patient's current mental status SKIN: No significant ecchymosis, rash, ulcerations or signs of pruritus noted. MUSCULOSKELETAL EXAM: No significant joint swelling noted. Results Laboratory Results: 03/24/16 04:24 03/24/16 04:24 03/24/16 03/24/16 03/24/16 04:24 04:24 04:24 WBC 8.6 RBC 5.15 Hgb 15.2 Hct 46.9 MCV 91 MCH 29.6 MCHC 32.5 RDW 15.6 H Plt Count 172 Carbonic Acid 1.64 H HCO3/H2CO3 Ratio 21:1 ABG pH 7.43 ABG pCO2 54.6 H ABG pO2 96.2 ABG HCO3 35.7 H ABG O2 Saturation 97.4 ABG Base Excess 9.2 FiO2 40% Sodium 144.7 Potassium 4.3 Chloride 98 Carbon Dioxide 39 H Anion Gap 8 BUN 41 H Creatinine 0.69 Est GFR ( Amer) > 60 Est GFR (Non-Af Amer) > 60 Glucose 99 Calcium 9.1 Phosphorus 3.9 Magnesium 2.4 H 03/17/16 03/17/16 03/17/16 06:00 06:00 13:35 Creatine Kinase 101 91 CK-MB (CK-2) 5.84 H Troponin I 0.056 03/17/16 03/17/16 03/17/16 13:35 19:05 19:05 Creatine Kinase 65 CK-MB (CK-2) 4.99 H 3.77 Troponin I 0.041 0.036 Impressions: Chest X-Ray 03/24/16 06:00 IMPRESSION: Stable appearance. KUB X-Ray 03/24/16 18:30 IMPRESSION: NO RADIOGRAPHIC EVIDENCE FOR ACUTE ABDOMINAL DISEASE. STABLE POSITION WEIGHTED FEEDING TUBE. Assessment & Plan - Diagnosis (1) Hypotension Qualifiers: Hypotension type: unspecified hypotension type Qualified Code(s): I95.9 - Hypotension, unspecified Is this a current diagnosis for this admission?: Yes (2) Respiratory arrest Is this a current diagnosis for this admission?: Yes (3) ARF (acute renal failure) Qualifiers: Acute renal failure type: unspecified Qualified Code(s): N17.9 - Acute kidney failure, unspecified Is this a current diagnosis for this admission?: Yes (4) Coronary artery disease Qualifiers: Coronary Disease-Associated Artery/Lesion type: [place] artery [place] vs. transplanted heart: [place] heart Associated angina: angina presence unspecified Qualified Code(s): I25.10 - Atherosclerotic heart disease of [place] coronary artery without angina pectoris Is this a current diagnosis for this admission?: Yes (5) Cardiomyopathy Qualifiers: Cardiomyopathy type: dilated Qualified Code(s): I42.0 - Dilated cardiomyopathy Is this a current diagnosis for this admission?: Yes (6) History of implantable cardioverter-defibrillator (ICD) placement Is this a current diagnosis for this admission?: Yes (7) CHF (congestive heart failure) Qualifiers: Congestive heart failure type: combined Congestive heart failure chronicity: chronic Qualified Code(s): I50.42 - Chronic combined systolic (congestive) and diastolic (congestive) heart failure Is this a current diagnosis for this admission?: Yes (8) COPD (chronic obstructive pulmonary disease) Qualifiers: COPD type: COPD with acute exacerbation Qualified Code(s): J44.1 - Chronic obstructive pulmonary disease with (acute) exacerbation Is this a current diagnosis for this admission?: Yes - Notes Notes: Patient has shown significant improvement and was able to be extubated. But he remains very weak and debilitated. He also was noted to be confused when I examined him. Patient medical regimen was reviewed. He seems to be on a stable regimen. Will continue to follow patient very closely. No medication changes were performed today. Hypotension: Continue Midodrin. - Time Time with patient: 15-25 minutes - CODE STATUS was discussed, patient remains full code. Surrogate decision-maker unchanged. Multiple medical problems were addressed.More than 50% of the time spent coordinating care, discussing management plans with involved caregivers. Management plans discussed with involved personnels. Medical decision making was of moderate complexity.
[2016-03-25] MEDS: IPRATROPIUM/ALBUTEROL 0.5-2.5 MG/3 ML AMPUL NEB SCH ×4 (02:34→20:18)
[2016-03-25 05:38] LABS: HEMATOCRIT 45.9 % (37.9-51.0); HGB HCT DIFFERENCE -0.9; MEAN CORPUSCULAR HEMOGLOBIN 29.7 pg (27.0-33.4); MEAN CORPUSCULAR HGB CONC 32.8 g/dL (32.0-36.0); MEAN CORPUSCULAR VOLUME 91 fl (80-97); RED BLOOD COUNT 5.05 10^6/uL (4.35-5.55); RED CELL DISTRIBUTION WIDTH 15.5 % (11.5-14.0)
[2016-03-25 05:51] LABS: BASOPHILS % (MANUAL) 0 % (0-2); EOSINOPHILS % (MANUAL) 0 % (0-6); LYMPHOCYTES % (MANUAL) 5 % (13-45); TOTAL CELLS COUNTED 100
[2016-03-25 05:52] LABS: ANISOCYTOSIS SLIGHT
[2016-03-25] MEDS: LANSOPRAZOLE 30 MG TAB.RAP.DR NG SCH ×2 (05:53→17:36)
[2016-03-25 05:54] LABS: BLOOD UREA NITROGEN 46 mg/dL (7-20); CALCIUM 9.5 mg/dL (8.4-10.2); CHLORIDE 98 mmol/L (98-107); CREATININE RESULT 0.75 mg/dL (0.52-1.25); GLUCOSE 112 mg/dL (75-110); POTASSIUM 4.2 mmol/L (3.6-5.0); SODIUM 147.2 mmol/L (137-145)
[2016-03-25 06:01] LABS: ANION GAP 11 (5-19); CARBON DIOXIDE 38 mmol/L (22-30)
--- NOTE | 2016-03-25 10:33 | ST Inp Modified Barium Swallow ---
Medical Diagnosis - Medical Diagnoses Medical Diagnosis Description & ICD-10 Code(s): r/o silent aspiration - ICD-10 Tx Diagnosis Coding (1) Dysphagia, oropharyngeal phase ICD-10 Code(s): R13.12 - DYSPHAGIA, OROPHARYNGEAL PHASE (2) Dysphagia, pharyngeal phase ICD-10 Code(s): R13.13 - DYSPHAGIA, PHARYNGEAL PHASE (3) Dysphagia, pharyngoesophageal phase ICD-10 Code(s): R13.14 - DYSPHAGIA, PHARYNGOESOPHAGEAL PHASE Inpatient MBS - General Date: 03/25/16 Date of Onset: 03/17/16 - History History Obtained From: Patient - per EMR -: Medical - per EMR; cardiac arrest, acute on chronic respiratory failure, CHF , loss of consciousness, acute renal failure, aspiration PNA, COPD. Pt intubated from 03/18/16-03/23/16. Chest xray shows small right lobar opacity. Pt has failed swallow screen multiple times per RN. PMHx: dialated cardiomyopathy, pacemaker, COPD, tobacco, afib, CHF, CAD, bronchitis, seizure. MBSS completed to r/o aspiration. Medications: Medications Reviewed Allergies: Refer to medical record - Subjective Current Nutritional Means: NPO, NG Current PO Diet: N/A (NPO) - NG tube Current Symptoms: Coughing, Pneumonia Pain: 0/5 - Objective Assessment: Upright, Left Lateral - Food Trials Food Trials Used: Thin liquids, Morse thick liquids, Pureed, Soft solids The Patient: fed by ST - Assessment Labial Function: Impaired - impaired seal Lingual Function: Impaired - reduced propulsion, reduced bolus formation, reduced bolus control Mandibular Function: Impaired - weak-prolonged inefficient and ineffective chewing. Dentition: Edentulous Velo-Pharyngeal Function: Unremarkable Laryngeal Function: Volitional Cough, Volitional Swallow - Pharyngeal Stage Initiation of Pharyngeal Stage: Normal Decreased Laryngeal Elevation: Yes - mild-moderate Reduced Velo-Pharyngeal Closure: no Reduced Pressure Generation: Yes - mild Reduced Tongue Base Retraction: Yes - mild Pre-Swallowing Pooling in Valleculae: Mild Pre-Swallowing Pooling in Pyriforms: None Reduced Thyro-Hyiod Approximation: Yes - mild-moderate Reduced Epiglottic Excursion: Yes Reduced Pharyngeal Peristalsis: Yes - mild Post Swallow Residuals in Valleculae: Moderate - mild on thin, mild-moderate on puree, moderate-severe on soft solids Post Swallow Residuals in Pyriforms: Mild - mild on thin and puree - Esophageal Stage Esophageal Stage Comments: possible esophageal back flow noted into pyriform sinus - Impression/Summary Laryngeal Penetration: Yes Tracheal Aspiration: yes - on thin, nectar, mixed residuals of thin and nectar, and mixed residuals of thin and puree, deep, during swallow, after swallow Ineffective Compensatory Strategies: throat clear & reswallow, hard swallow Patient Presents With: Oral stage dysphagia, Pharyngeal stage dysph., Oral- Pharyngeal dysph. Risk of Aspiration: Severe - Recommendations NPO: yes Dysphagia Therapy with WATER COMMISSIONER: Yes, Inpatient, Outpatient, Home Health, Discharge Other Recommendations: 1) DIET: recommend continued NPO with alternate means of nutrition/hydration. 2) Acute care ST to treat x1 this week, x2 starting next week. SUMMARY: At start of study, dobhoff feeding tube obsereved to be coiled in pharynx, possibly impairing swallow function. MD was contacted and wished to have tube removed for study. RA removed feeding tube. After removal of tube pt was observed to aspirate all consistencies and mixed residuals. Tube removal did not result in benefit to the swallow. ST recommends continued NPO with alternate means, Physicain has placed order for tube to be reinserted. - Time Total Time: 25 Total Timed Minutes: 1 [facility] Impairment Category - Rationale Based On Rationale Based On: Clin Find., Obj Measures - Swallowing Current G8996: CN 100% Impaired Goal G8997: CK 40-59% Impaired
[2016-03-25] MEDS: ASPIRIN 81 MG TABLET, ENT COATED PO SCH (11:48)
[2016-03-25] MEDS: MIDODRINE HCL 5 MG TABLET NG SCH ×3 (11:48→17:37)
[2016-03-25] MEDS: APIXABAN 5 MG TABLET PO SCH ×2 (11:49→17:36)
[2016-03-25] MEDS: DIGOXIN 0.125 MG TABLET PO SCH (11:49)
[2016-03-25] MEDS: FUROSEMIDE INJ/PF 40 MG/4 ML SDV IV SCH (11:49)
[2016-03-25] MEDS: METHYLPREDNISOLONE INJ 125 MG/2 ML SDV IV SCH ×2 (11:50→21:34)
[2016-03-25] MEDS: EPLERENONE 25 MG TABLET NG SCH ×2 (11:51→17:39)
[2016-03-25] MEDS: FERROUS SULFATE LIQUID 300 MG/5 ML UDC NG SCH (11:52)
[2016-03-25] MEDS: DOCUSATE SODIUM 100 MG CAPSULE PO SCH ×2 (11:52→17:40)
--- NOTE | 2016-03-25 13:54 | PDOC PROGRESS REPORT ---
Subjective Progress Note for:: 03/25/16 Subjective:: The patient had a barium swallow today which shows him to aspirate. The patient also had a Dobbhoff tube which was placed which was done by radiology. The patient denies any chest pain or shortness of breath today. Physical Exam Vital Signs: Temp Pulse Resp BP Pulse Ox 98.0 F 62 19 108/71 96 03/25/16 12:30 03/25/16 12:30 03/25/16 12:30 03/25/16 12:30 03/25/16 12:30 Intake & Output 03/24/16 03/25/16 03/26/16 06:59 06:59 06:59 Intake Total 903 10 0 Output Total 2550 2024 500 Balance -1646 Weight 99.7 kg 97.1 kg General appearance: PRESENT: no acute distress Eye exam: PRESENT: conjunctiva pink. ABSENT: scleral icterus Mouth exam: PRESENT: moist, tongue midline Neck exam: ABSENT: JVD Respiratory exam: PRESENT: wheezes - Few scattered expiratory wheezes. Cardiovascular exam: PRESENT: irregular rhythm GI/Abdominal exam: PRESENT: normal bowel sounds, soft. ABSENT: distended, guarding, mass, organolmegaly, rebound, tenderness Extremities exam: PRESENT: pedal edema - Trace pedal edema.. ABSENT: calf tenderness, clubbing Neurological exam: PRESENT: alert, awake, oriented to person, oriented to place. ABSENT: oriented to time Psychiatric exam: PRESENT: appropriate affect Skin exam: PRESENT: intact, warm Results Laboratory Results: 03/25/16 04:05 03/25/16 04:05 03/25/16 03/25/16 04:05 04:05 WBC 10.0 RBC 5.05 Hgb 15.0 Hct 45.9 MCV 91 MCH 29.7 MCHC 32.8 RDW 15.5 H Plt Count 157 Seg Neutrophils % Not Reportable Lymphocytes % Not Reportable Monocytes % Not Reportable Eosinophils % Not Reportable Basophils % Not Reportable Absolute Neutrophils Not Reportable Absolute Lymphocytes Not Reportable Absolute Monocytes Not Reportable Absolute Eosinophils Not Reportable Absolute Basophils Not Reportable Sodium 147.2 H Potassium 4.2 Chloride 98 Carbon Dioxide 38 H Anion Gap 11 BUN 46 H Creatinine 0.75 Est GFR ( Amer) > 60 Est GFR (Non-Af Amer) > 60 Glucose 112 H Calcium 9.5 03/17/16 03/17/16 03/17/16 06:00 06:00 13:35 Creatine Kinase 101 91 CK-MB (CK-2) 5.84 H Troponin I 0.056 03/17/16 03/17/16 03/17/16 13:35 19:05 19:05 Creatine Kinase 65 CK-MB (CK-2) 4.99 H 3.77 Troponin I 0.041 0.036 Impressions: Chest X-Ray 03/24/16 06:00 IMPRESSION: Stable appearance. KUB X-Ray 03/24/16 18:30 IMPRESSION: NO RADIOGRAPHIC EVIDENCE FOR ACUTE ABDOMINAL DISEASE. STABLE POSITION WEIGHTED FEEDING TUBE. Guidance Fluoroscopy 03/25/16 00:00 IMPRESSION: Dobhoff tube tip in the 3rd portion of the duodenum. Assessment & Plan - Diagnosis (1) Acute hypoxemic respiratory failure Is this a current diagnosis for this admission?: YesPlan: This is secondary to his aspiration pneumonia as well as COPD exacerbation and congestive heart failure. He currently is requiring a BiPAP at night and we'll continue as needed. We'll continue with the antibiotics, IV steroids, IV Lasix. (2) Aspiration pneumonia Qualifiers: Aspiration pneumonia type: unspecified Lung location: unspecified part of lung Is this a current diagnosis for this admission?: YesPlan: Patient is on clindamycin. We'll continue with that. Culture negative so far. (3) COPD exacerbation Is this a current diagnosis for this admission?: YesPlan: Patient is getting nebulizers and IV steroids. Will continue with treatment. (4) Systolic and diastolic CHF, chronic Is this a current diagnosis for this admission?: YesPlan: The patient is improving with IV Lasix and we'll continue with that. Patient is being followed by cardiology also. Their help is appreciated. (5) ARF (acute renal failure) Qualifiers: Acute renal failure type: unspecified Qualified Code(s): N17.9 - Acute kidney failure, unspecified Is this a current diagnosis for this admission?: YesPlan: Resolved. (6) Anemia Qualifiers: Anemia type: iron deficiency Iron deficiency anemia type: unspecified iron deficiency Qualified Code(s): D50.9 - Iron deficiency anemia, unspecified Is this a current diagnosis for this admission?: YesPlan: Hemoglobin has remained stable. (7) Diabetes type 2, controlled Is this a current diagnosis for this admission?: YesPlan: Blood sugars have been stable. Blood sugars have ranged from the 83-112 (8) Coronary artery disease Qualifiers: Coronary Disease-Associated Artery/Lesion type: [place] artery [place] vs. transplanted heart: [place] heart Associated angina: angina presence unspecified Qualified Code(s): I25.10 - Atherosclerotic heart disease of [place] coronary artery without angina pectoris Is this a current diagnosis for this admission?: YesPlan: Denies any chest pain. Continue with aspirin. (9) Anxiety Is this a current diagnosis for this admission?: YesPlan: Stable. (10) GERD (gastroesophageal reflux disease) Is this a current diagnosis for this admission?: YesPlan: Continue Protonix. (11) Seizure disorder Is this a current diagnosis for this admission?: YesPlan: No evidence for seizures. (12) Morbid obesity with BMI of 40.0-44.9, adult Is this a current diagnosis for this admission?: Yes (13) History of implantable cardioverter-defibrillator (ICD) placement Is this a current diagnosis for this admission?: Yes - Time Time Spent with patient: 25-34 minutes - Inpatient Certification Medical Necessity: Need for IV Antibiotics
--- NOTE | 2016-03-25 16:30 | PDOC PROGRESS REPORT ---
Subjective Progress Note for:: 03/25/16 Subjective:: Patient was extubated yesterday. Patient however looks comfortable and in acute distress. Patient has paced rhythm. Currently off dopamine for several days. Urine output seems to have improved and is stable. Patient has underlying atrial fibrillation. Occasional VPCs are noted. Patient remains confused intermittently. He is not oriented to time place or person. Patient today had a swallowing evaluation and was noted to be aspiration risk. Medications reviewed. Physical Exam Vital Signs: Temp Pulse Resp BP Pulse Ox 98.7 F 70 18 106/61 94 03/25/16 15:11 03/25/16 15:11 03/25/16 15:11 03/25/16 15:11 03/25/16 15:11 Intake & Output 03/24/16 03/25/16 03/26/16 06:59 06:59 06:59 Intake Total 903 10 0 Output Total 2550 2024 500 Balance -1647 -2014 -500 Weight 99.7 kg 97.1 kg Exam: GENERAL: well-nourished and in no acute distress. Patient is alert but not oriented to place time or person. HEAD: Atraumatic, normocephalic. EYES: Pupils equal round and reactive to light, extraocular movements intact, sclera anicteric, conjunctiva are normal. ENT: TMs normal, nares patent, oropharynx clear without exudates. Moist mucous membranes. No oral ulcerations or bleeding gums noted NECK: supple without lymphadenopathy or JVD. Trachea is central. No cervical or axillary lymphadenopathy noted. Carotids are 2+ LUNGS: Breath sounds bibasilar fine crackles at bases. No significant dullness noted. CHEST: Palpation of chest wall shows no significant chest wall tenderness. HEART: [place] BUNG SEWER, No PSH, 2/6 CHEO aortic area, 1/6 carrasco systolic murmur mitral area, rubs or gallops. ABDOMEN: Soft, no significant tenderness appreciated, normoactive bowel sounds. No guarding, no rebound. No rigidity noted . No masses appreciated. EXTREMITIES: Pedal pulses are 1-2+, no calf tenderness noted, 1 + pedal edema noted. No clubbing or cyanosis. NEUROLOGICAL: Patient is alert but is not able to participate in neurological exam because of patient's current mental status PSYCH: Patient cannot participate in a full neurologic and psych exam because of the patient's current mental status. Patient however able to move all 4 extremities on command and no facial asymmetry noted SKIN: No significant ecchymosis, rash, ulcerations or signs of pruritus noted. MUSCULOSKELETAL EXAM: No significant joint swelling noted. Results Laboratory Results: 03/25/16 04:05 03/25/16 04:05 03/25/16 03/25/16 04:05 04:05 WBC 10.0 RBC 5.05 Hgb 15.0 Hct 45.9 MCV 91 MCH 29.7 MCHC 32.8 RDW 15.5 H Plt Count 157 Seg Neutrophils % Not Reportable Lymphocytes % Not Reportable Monocytes % Not Reportable Eosinophils % Not Reportable Basophils % Not Reportable Absolute Neutrophils Not Reportable Absolute Lymphocytes Not Reportable Absolute Monocytes Not Reportable Absolute Eosinophils Not Reportable Absolute Basophils Not Reportable Sodium 147.2 H Potassium 4.2 Chloride 98 Carbon Dioxide 38 H Anion Gap 11 BUN 46 H Creatinine 0.75 Est GFR ( Amer) > 60 Est GFR (Non-Af Amer) > 60 Glucose 112 H Calcium 9.5 03/17/16 03/17/16 03/17/16 06:00 06:00 13:35 Creatine Kinase 101 91 CK-MB (CK-2) 5.84 H Troponin I 0.056 03/17/16 03/17/16 03/17/16 13:35 19:05 19:05 Creatine Kinase 65 CK-MB (CK-2) 4.99 H 3.77 Troponin I 0.041 0.036 Impressions: Chest X-Ray 03/24/16 06:00 IMPRESSION: Stable appearance. KUB X-Ray 03/24/16 18:30 IMPRESSION: NO RADIOGRAPHIC EVIDENCE FOR ACUTE ABDOMINAL DISEASE. STABLE POSITION WEIGHTED FEEDING TUBE. Gastrostomy Tube Placement 03/25/16 00:00 IMPRESSION: Please see combined report for performance of procedure and radiologic supervision and interpretation. Guidance Fluoroscopy 03/25/16 00:00 IMPRESSION: Dobhoff tube tip in the 3rd portion of the duodenum. Assessment & Plan - Diagnosis (1) Hypotension Qualifiers: Hypotension type: unspecified hypotension type Qualified Code(s): I95.9 - Hypotension, unspecified Is this a current diagnosis for this admission?: Yes (2) Respiratory arrest Is this a current diagnosis for this admission?: Yes (3) ARF (acute renal failure) Qualifiers: Acute renal failure type: unspecified Qualified Code(s): N17.9 - Acute kidney failure, unspecified Is this a current diagnosis for this admission?: Yes (4) Coronary artery disease Qualifiers: Coronary Disease-Associated Artery/Lesion type: [place] artery [place] vs. transplanted heart: [place] heart Associated angina: angina presence unspecified Qualified Code(s): I25.10 - Atherosclerotic heart disease of [place] coronary artery without angina pectoris Is this a current diagnosis for this admission?: Yes (5) Cardiomyopathy Qualifiers: Cardiomyopathy type: dilated Qualified Code(s): I42.0 - Dilated cardiomyopathy Is this a current diagnosis for this admission?: Yes (6) History of implantable cardioverter-defibrillator (ICD) placement Is this a current diagnosis for this admission?: Yes (7) CHF (congestive heart failure) Qualifiers: Congestive heart failure type: combined Congestive heart failure chronicity: chronic Qualified Code(s): I50.42 - Chronic combined systolic (congestive) and diastolic (congestive) heart failure Is this a current diagnosis for this admission?: Yes (8) COPD (chronic obstructive pulmonary disease) Qualifiers: COPD type: COPD with acute exacerbation Qualified Code(s): J44.1 - Chronic obstructive pulmonary disease with (acute) exacerbation Is this a current diagnosis for this admission?: Yes - Notes Notes: Hypotension: Resolved. Respiratory arrest: Resolved patient has been extubated. He is needing some intermittent O2 supplementation. Acute renal failure: Resolved. Coronary artery disease: Symptomatically stable. Status post ICD placement: Functioning normally. CHF: Compensated. Continue current regimen. COPD: Stable continue bronchodilator therapy. Aspiration risk: Elevate head in the bed. Avoid large feeds. - Time Time with patient: 15-25 minutes - Patient generally stable from cardiac standpoint. No further evaluation planned at this point. Patient can follow- up with me as an outpatient. We will sign off. Please reconsult if needed.
[2016-03-25] MEDS: FENOFIBRATE NANOCRYSTALLIZED 48 MG TABLET NG SCH (17:39)
[2016-03-26] MEDS: IPRATROPIUM/ALBUTEROL 0.5-2.5 MG/3 ML AMPUL NEB SCH ×4 (02:23→20:19)
[2016-03-26] MEDS: LANSOPRAZOLE 30 MG TAB.RAP.DR NG SCH ×2 (05:19→17:35)
[2016-03-26 05:29] LABS: HEMATOCRIT 45.3 % (37.9-51.0); HGB HCT DIFFERENCE -0.3; MEAN CORPUSCULAR HEMOGLOBIN 30.4 pg (27.0-33.4); MEAN CORPUSCULAR HGB CONC 33.1 g/dL (32.0-36.0); MEAN CORPUSCULAR VOLUME 92 fl (80-97); RED BLOOD COUNT 4.93 10^6/uL (4.35-5.55); RED CELL DISTRIBUTION WIDTH 15.2 % (11.5-14.0); WHITE BLOOD COUNT 9.1 10^3/uL (4.0-10.5)
[2016-03-26 05:43] LABS: BLOOD UREA NITROGEN 49 mg/dL (7-20); CALCIUM 9.5 mg/dL (8.4-10.2); CHLORIDE 100 mmol/L (98-107); CREATININE RESULT 0.81 mg/dL (0.52-1.25); GLUCOSE 171 mg/dL (75-110); POTASSIUM 4.1 mmol/L (3.6-5.0); SODIUM 149.4 mmol/L (137-145)
[2016-03-26 05:50] LABS: ANION GAP 9 (5-19)
[2016-03-26 05:57] LABS: CARBON DIOXIDE 40 mmol/L (22-30)
[2016-03-26 06:11] LABS: BAND NEUTROPHILS % (MANUAL) 2 % (3-5); BASOPHILS % (MANUAL) 0 % (0-2); EOSINOPHILS % (MANUAL) 0 % (0-6); LYMPHOCYTES % (MANUAL) 6 % (13-45); TOTAL CELLS COUNTED 100
[2016-03-26 06:16] LABS: ANISOCYTOSIS SLIGHT; OVALOCYTES SLIGHT; POIKILOCYTOSIS SLIGHT; SCHISTOCYTES SLIGHT
[2016-03-26] MEDS: ASPIRIN 81 MG TABLET, ENT COATED PO SCH (10:23)
[2016-03-26] MEDS: APIXABAN 5 MG TABLET PO SCH ×2 (10:23→17:36)
[2016-03-26] MEDS: DIGOXIN 0.125 MG TABLET PO SCH (10:23)
[2016-03-26] MEDS: MIDODRINE HCL 5 MG TABLET NG SCH ×3 (10:24→17:35)
[2016-03-26] MEDS: FERROUS SULFATE LIQUID 300 MG/5 ML UDC NG SCH (10:24)
[2016-03-26] MEDS: METHYLPREDNISOLONE INJ 125 MG/2 ML SDV IV SCH ×2 (10:24→22:00)
[2016-03-26] MEDS: EPLERENONE 25 MG TABLET NG SCH ×2 (10:25→17:35)
[2016-03-26] MEDS: FUROSEMIDE INJ/PF 40 MG/4 ML SDV IV SCH (10:25)
[2016-03-26] MEDS: DOCUSATE SODIUM 100 MG CAPSULE PO SCH ×2 (10:26→17:37)
--- NOTE | 2016-03-26 11:25 | EKG REPORT ---
SEVERITY:- ABNORMAL ECG - AFIB/FLUT AND V-PACED COMPLEXES : Confirmed by: Anabella Mueller 26-Mar-2016 11:24:20
--- NOTE | 2016-03-26 13:18 | PDOC PROGRESS REPORT ---
Subjective Progress Note for:: 03/26/16 Subjective:: The patient denies any chest pain or shortness of breath today. Physical Exam Vital Signs: Temp Pulse Resp BP Pulse Ox 98.2 F 70 19 125/73 96 03/26/16 11:14 03/26/16 11:14 03/26/16 11:14 03/26/16 11:14 03/26/16 11:14 Intake & Output 03/25/16 03/26/16 03/27/16 06:59 06:59 06:59 Intake Total Output Total 2024 -2014 Weight 97.1 kg 97.6 kg General appearance: PRESENT: no acute distress Eye exam: PRESENT: conjunctiva pink. ABSENT: scleral icterus Mouth exam: PRESENT: moist, tongue midline Neck exam: ABSENT: JVD Respiratory exam: PRESENT: rhonchi - Coarse bilateral rhonchi.. ABSENT: rales, wheezes Cardiovascular exam: PRESENT: RRR. ABSENT: diastolic murmur, rubs, systolic murmur GI/Abdominal exam: PRESENT: normal bowel sounds, soft. ABSENT: distended, guarding, mass, organolmegaly, rebound, tenderness Extremities exam: ABSENT: calf tenderness, clubbing, pedal edema Neurological exam: PRESENT: alert, awake, oriented to person, oriented to place Psychiatric exam: PRESENT: appropriate affect Skin exam: PRESENT: dry, intact, warm. ABSENT: cyanosis, rash Results Laboratory Results: 03/26/16 05:09 03/26/16 05:09 03/26/16 03/26/16 05:09 05:09 WBC 9.1 RBC 4.93 Hgb 15.0 Hct 45.3 MCV 92 MCH 30.4 MCHC 33.1 RDW 15.2 H Plt Count 154 Seg Neutrophils % Not Reportable Lymphocytes % Not Reportable Monocytes % Not Reportable Eosinophils % Not Reportable Basophils % Not Reportable Absolute Neutrophils Not Reportable Absolute Lymphocytes Not Reportable Absolute Monocytes Not Reportable Absolute Eosinophils Not Reportable Absolute Basophils Not Reportable Sodium 149.4 H Potassium 4.1 Chloride 100 Carbon Dioxide 40 H* Anion Gap 9 BUN 49 H Creatinine 0.81 Est GFR ( Amer) > 60 Est GFR (Non-Af Amer) > 60 Glucose 171 H Calcium 9.5 03/17/16 03/17/16 03/17/16 06:00 06:00 13:35 Creatine Kinase 101 91 CK-MB (CK-2) 5.84 H Troponin I 0.056 03/17/16 03/17/16 03/17/16 13:35 19:05 19:05 Creatine Kinase 65 CK-MB (CK-2) 4.99 H 3.77 Troponin I 0.041 0.036 Impressions: Chest X-Ray 03/24/16 06:00 IMPRESSION: Stable appearance. KUB X-Ray 03/24/16 18:30 IMPRESSION: NO RADIOGRAPHIC EVIDENCE FOR ACUTE ABDOMINAL DISEASE. STABLE POSITION WEIGHTED FEEDING TUBE. Gastrostomy Tube Placement 03/25/16 00:00 IMPRESSION: Please see combined report for performance of procedure and radiologic supervision and interpretation. Guidance Fluoroscopy 03/25/16 00:00 IMPRESSION: Dobhoff tube tip in the 3rd portion of the duodenum. Modified Barium Swallow 03/25/16 00:00 IMPRESSION: Laryngeal penetration and tracheal aspiration with thin, nectar, and post swallow residuals. Please see speech pathology report for further details and recommendations. Assessment & Plan - Diagnosis (1) Acute hypoxemic respiratory failure Is this a current diagnosis for this admission?: YesPlan: This is secondary to his aspiration pneumonia as well as COPD exacerbation and congestive heart failure. He currently is requiring a BiPAP at night and we'll continue as needed. We'll continue with the antibiotics, IV steroids, IV Lasix. (2) Aspiration pneumonia Qualifiers: Aspiration pneumonia type: unspecified Lung location: unspecified part of lung Is this a current diagnosis for this admission?: YesPlan: Patient is on clindamycin. We'll continue with that. Culture negative so far. (3) COPD exacerbation Is this a current diagnosis for this admission?: YesPlan: Patient is getting nebulizers and IV steroids. (4) Systolic and diastolic CHF, chronic Is this a current diagnosis for this admission?: YesPlan: The patient is improving with IV Lasix and we'll continue with that. Patient is being followed by cardiology also. Their help is appreciated. (5) ARF (acute renal failure) Qualifiers: Acute renal failure type: unspecified Qualified Code(s): N17.9 - Acute kidney failure, unspecified Is this a current diagnosis for this admission?: YesPlan: Resolved. (6) Anemia Qualifiers: Anemia type: iron deficiency Iron deficiency anemia type: unspecified iron deficiency Qualified Code(s): D50.9 - Iron deficiency anemia, unspecified Is this a current diagnosis for this admission?: YesPlan: Hemoglobin has remained stable. (7) Diabetes type 2, controlled Is this a current diagnosis for this admission?: YesPlan: Blood sugars have been stable. Blood sugars have ranged from the 112-170 (8) Coronary artery disease Qualifiers: Coronary Disease-Associated Artery/Lesion type: [place] artery [place] vs. transplanted heart: [place] heart Associated angina: angina presence unspecified Qualified Code(s): I25.10 - Atherosclerotic heart disease of [place] coronary artery without angina pectoris Is this a current diagnosis for this admission?: YesPlan: Denies any chest pain. Continue with aspirin. (9) Anxiety Is this a current diagnosis for this admission?: YesPlan: Stable. (10) GERD (gastroesophageal reflux disease) Is this a current diagnosis for this admission?: YesPlan: Continue Protonix. (11) Seizure disorder Is this a current diagnosis for this admission?: YesPlan: No evidence for seizures. (12) Morbid obesity with BMI of 40.0-44.9, adult Is this a current diagnosis for this admission?: Yes (13) History of implantable cardioverter-defibrillator (ICD) placement Is this a current diagnosis for this admission?: Yes - Time Time Spent with patient: 25-34 minutes - Inpatient Certification Medical Necessity: Need Close Monitoring Due to Risk of Patient Decompensation
[2016-03-26] MEDS: FENOFIBRATE NANOCRYSTALLIZED 48 MG TABLET NG SCH (17:35)
[2016-03-26] MEDS: LACTULOSE SYRUP 20 GM/30 ML UDCUP PO PRN (17:36)
[2016-03-27] MEDS: IPRATROPIUM/ALBUTEROL 0.5-2.5 MG/3 ML AMPUL NEB SCH ×4 (02:51→19:26)
[2016-03-27] MEDS: LANSOPRAZOLE 30 MG TAB.RAP.DR NG SCH ×2 (05:14→17:38)
[2016-03-27 05:26] LABS: HEMATOCRIT 46.6 % (37.9-51.0); HEMOGLOBIN 15.3 g/dL (13.5-17.0); HGB HCT DIFFERENCE -0.7; MEAN CORPUSCULAR HGB CONC 32.8 g/dL (32.0-36.0); MEAN CORPUSCULAR VOLUME 92 fl (80-97); RED BLOOD COUNT 5.09 10^6/uL (4.35-5.55); RED CELL DISTRIBUTION WIDTH 15.3 % (11.5-14.0); WHITE BLOOD COUNT 10.1 10^3/uL (4.0-10.5)
[2016-03-27 05:43] LABS: BLOOD UREA NITROGEN 52 mg/dL (7-20); CALCIUM 9.8 mg/dL (8.4-10.2); CHLORIDE 101 mmol/L (98-107); CREATININE RESULT 0.68 mg/dL (0.52-1.25); GLUCOSE 148 mg/dL (75-110); SODIUM 150.7 mmol/L (137-145)
[2016-03-27 05:51] LABS: ANION GAP 9 (5-19)
[2016-03-27 05:55] LABS: CARBON DIOXIDE 41 mmol/L (22-30)
[2016-03-27 05:58] LABS: BASOPHILS % (MANUAL) 0 % (0-2); EOSINOPHILS % (MANUAL) 0 % (0-6); LYMPHOCYTES % (MANUAL) 3 % (13-45); TOTAL CELLS COUNTED 100
[2016-03-27 05:59] LABS: ANISOCYTOSIS SLIGHT; OVALOCYTES SLIGHT; TOXIC GRANULATION SLIGHT
[2016-03-27 06:00] LABS: TEAR DROP CELLS SLIGHT
[2016-03-27] MEDS: DEXTROSE 5%-1/2 NORMAL SALINE 1,000 ML IV PRN ×3 (08:34→19:23)
[2016-03-27] MEDS: ASPIRIN 81 MG TABLET, ENT COATED PO SCH (10:13)
[2016-03-27] MEDS: MIDODRINE HCL 5 MG TABLET NG SCH ×2 (10:13→21:36)
[2016-03-27] MEDS: APIXABAN 5 MG TABLET PO SCH ×2 (10:14→17:38)
[2016-03-27] MEDS: DIGOXIN 0.125 MG TABLET PO SCH (10:14)
[2016-03-27] MEDS: METHYLPREDNISOLONE INJ 125 MG/2 ML SDV IV SCH (10:15)
[2016-03-27] MEDS: DOCUSATE SODIUM 100 MG CAPSULE PO SCH ×2 (10:15→17:38)
[2016-03-27] MEDS: FERROUS SULFATE LIQUID 300 MG/5 ML UDC NG SCH (10:15)
[2016-03-27] MEDS: EPLERENONE 25 MG TABLET NG SCH ×2 (10:15→17:39)
[2016-03-27] MEDS ORDERED: MORPHINE SULFATE 10 MG/ML INJ IV PRN (10:19)
[2016-03-27] MEDS ORDERED: HALOPERIDOL LACTATE INJ 5 MG/1 ML VIAL IV PRN (10:19)
--- NOTE | 2016-03-27 11:49 | PDOC PROGRESS REPORT ---
Subjective Progress Note for:: 03/27/16 Subjective:: The patient denies any chest pain or shortness of breath today. He is anxious that he wants to eat. I have tried to explain to him that he is an aspiration risk. Physical Exam Vital Signs: Temp Pulse Resp BP Pulse Ox 97.7 F 79 18 143/88 H 95 03/27/16 03:40 03/27/16 07:57 03/27/16 07:57 03/27/16 03:40 03/27/16 03:40 Intake & Output 03/26/16 03/27/16 03/28/16 06:59 06:59 06:59 Intake Total 642 11 Output Total 1999 2637 Tckzzkb -4930 -9992 Weight 97.6 kg 97.6 kg General appearance: PRESENT: no acute distress, disheveled Head exam: PRESENT: atraumatic, normocephalic Eye exam: PRESENT: conjunctiva pink. ABSENT: scleral icterus Ear exam: PRESENT: normal external ear exam Mouth exam: PRESENT: moist, tongue midline Neck exam: ABSENT: JVD Respiratory exam: PRESENT: clear to auscultation nic. ABSENT: rales, rhonchi, wheezes Cardiovascular exam: PRESENT: RRR. ABSENT: diastolic murmur, rubs, systolic murmur GI/Abdominal exam: PRESENT: normal bowel sounds, soft. ABSENT: distended, guarding, mass, organolmegaly, rebound, tenderness Extremities exam: ABSENT: calf tenderness, clubbing, pedal edema Neurological exam: PRESENT: awake, oriented to person, oriented to place. ABSENT: oriented to time, oriented to situation, motor sensory deficit Psychiatric exam: PRESENT: anxious Skin exam: PRESENT: dry, intact, warm. ABSENT: cyanosis, rash Results Laboratory Results: 03/27/16 05:02 03/27/16 05:02 03/27/16 03/27/16 05:02 05:02 WBC 10.1 RBC 5.09 Hgb 15.3 Hct 46.6 MCV 92 MCH 30.0 MCHC 32.8 RDW 15.3 H Plt Count 130 L Seg Neutrophils % Not Reportable Lymphocytes % Not Reportable Monocytes % Not Reportable Eosinophils % Not Reportable Basophils % Not Reportable Absolute Neutrophils Not Reportable Absolute Lymphocytes Not Reportable Absolute Monocytes Not Reportable Absolute Eosinophils Not Reportable Absolute Basophils Not Reportable Sodium 150.7 H Potassium 4.0 Chloride 101 Carbon Dioxide 41 H* Anion Gap 9 BUN 52 H Creatinine 0.68 Est GFR ( Amer) > 60 Est GFR (Non-Af Amer) > 60 Glucose 148 H Calcium 9.8 03/17/16 03/17/16 03/17/16 06:00 06:00 13:35 Creatine Kinase 101 91 CK-MB (CK-2) 5.84 H Troponin I 0.056 03/17/16 03/17/16 03/17/16 13:35 19:05 19:05 Creatine Kinase 65 CK-MB (CK-2) 4.99 H 3.77 Troponin I 0.041 0.036 Impressions: Chest X-Ray 03/24/16 06:00 IMPRESSION: Stable appearance. KUB X-Ray 03/24/16 18:30 IMPRESSION: NO RADIOGRAPHIC EVIDENCE FOR ACUTE ABDOMINAL DISEASE. STABLE POSITION WEIGHTED FEEDING TUBE. Gastrostomy Tube Placement 03/25/16 00:00 IMPRESSION: Please see combined report for performance of procedure and radiologic supervision and interpretation. Guidance Fluoroscopy 03/25/16 00:00 IMPRESSION: Dobhoff tube tip in the 3rd portion of the duodenum. Modified Barium Swallow 03/25/16 00:00 IMPRESSION: Laryngeal penetration and tracheal aspiration with thin, nectar, and post swallow residuals. Please see speech pathology report for further details and recommendations. Assessment & Plan - Diagnosis (1) Acute hypoxemic respiratory failure Is this a current diagnosis for this admission?: YesPlan: This is secondary to his aspiration pneumonia as well as COPD exacerbation and congestive heart failure. He currently is requiring a BiPAP at night and we'll continue as needed. We'll continue with the antibiotics, IV steroids, IV Lasix. (2) Aspiration pneumonia Qualifiers: Aspiration pneumonia type: unspecified Lung location: unspecified part of lung Is this a current diagnosis for this admission?: YesPlan: Patient is on clindamycin. We'll continue with that. Culture negative so far. (3) COPD exacerbation Is this a current diagnosis for this admission?: YesPlan: Patient is getting nebulizers and IV steroids and we will switch to by mouth steroids. (4) Systolic and diastolic CHF, chronic Is this a current diagnosis for this admission?: YesPlan: The patient is improving with IV Lasix and we'll continue with that. (5) ARF (acute renal failure) Qualifiers: Acute renal failure type: unspecified Qualified Code(s): N17.9 - Acute kidney failure, unspecified Is this a current diagnosis for this admission?: YesPlan: Resolved. (6) Anemia Qualifiers: Anemia type: iron deficiency Iron deficiency anemia type: unspecified iron deficiency Qualified Code(s): D50.9 - Iron deficiency anemia, unspecified Is this a current diagnosis for this admission?: YesPlan: Hemoglobin has remained stable. (7) Diabetes type 2, controlled Is this a current diagnosis for this admission?: YesPlan: Blood sugars have been stable. Blood sugars have ranged from the 112-171 (8) Coronary artery disease Qualifiers: Coronary Disease-Associated Artery/Lesion type: [place] artery [place] vs. transplanted heart: [place] heart Associated angina: angina presence unspecified Qualified Code(s): I25.10 - Atherosclerotic heart disease of [place] coronary artery without angina pectoris Is this a current diagnosis for this admission?: YesPlan: Denies any chest pain. Continue with aspirin. (9) Anxiety Is this a current diagnosis for this admission?: YesPlan: Stable. (10) GERD (gastroesophageal reflux disease) Is this a current diagnosis for this admission?: YesPlan: Continue Protonix. (11) Seizure disorder Is this a current diagnosis for this admission?: YesPlan: No evidence for seizures. (12) Morbid obesity with BMI of 40.0-44.9, adult Is this a current diagnosis for this admission?: Yes (13) History of implantable cardioverter-defibrillator (ICD) placement Is this a current diagnosis for this admission?: Yes - Time Time Spent with patient: 25-34 minutes - Inpatient Certification Medical Necessity: Need Close Monitoring Due to Risk of Patient Decompensation - Plan Summary Plan Summary: We will change his Lasix and steroids to oral.
[2016-03-27] MEDS: FENOFIBRATE NANOCRYSTALLIZED 48 MG TABLET NG SCH (17:38)
[2016-03-28] MEDS: IPRATROPIUM/ALBUTEROL 0.5-2.5 MG/3 ML AMPUL NEB SCH ×4 (02:01→19:45)
[2016-03-28] MEDS: DEXTROSE 5%-1/2 NORMAL SALINE 1,000 ML IV PRN ×2 (05:00→15:07)
[2016-03-28 05:59] LABS: HEMATOCRIT 45.3 % (37.9-51.0); HEMOGLOBIN 14.7 g/dL (13.5-17.0); HGB HCT DIFFERENCE -1.2; MEAN CORPUSCULAR HEMOGLOBIN 29.7 pg (27.0-33.4); MEAN CORPUSCULAR HGB CONC 32.5 g/dL (32.0-36.0); MEAN CORPUSCULAR VOLUME 91 fl (80-97); RED BLOOD COUNT 4.96 10^6/uL (4.35-5.55); RED CELL DISTRIBUTION WIDTH 15.1 % (11.5-14.0); WHITE BLOOD COUNT 12.4 10^3/uL (4.0-10.5)
[2016-03-28 06:20] LABS: BLOOD UREA NITROGEN 50 mg/dL (7-20); CALCIUM 9.3 mg/dL (8.4-10.2); CHLORIDE 100 mmol/L (98-107); CREATININE RESULT 0.62 mg/dL (0.52-1.25); GLUCOSE 116 mg/dL (75-110); POTASSIUM 3.9 mmol/L (3.6-5.0); SODIUM 149.6 mmol/L (137-145)
[2016-03-28] MEDS: MIDODRINE HCL 5 MG TABLET NG SCH ×3 (06:26→21:28)
[2016-03-28] MEDS: LANSOPRAZOLE 30 MG TAB.RAP.DR NG SCH ×2 (06:26→17:31)
[2016-03-28 06:37] LABS: ANION GAP 12 (5-19)
[2016-03-28 06:43] LABS: CARBON DIOXIDE 38 mmol/L (22-30)
[2016-03-28 07:00] LABS: BASOPHILS % (MANUAL) 0 % (0-2); EOSINOPHILS % (MANUAL) 0 % (0-6); LYMPHOCYTES % (MANUAL) 3 % (13-45); TOTAL CELLS COUNTED 100
[2016-03-28 07:05] LABS: PLATELET CLUMPS PRESENT; TARGET CELLS 1+; TOXIC GRANULATION SLIGHT
[2016-03-28 07:06] LABS: ANISOCYTOSIS SLIGHT
--- NOTE | 2016-03-28 09:23 | EKG REPORT ---
SEVERITY:- ABNORMAL ECG - VENTRICULAR-PACED COMPLEXES : Confirmed by: Anabella Mueller 28-Mar-2016 09:22:16
[2016-03-28] MEDS ORDERED: PREDNISONE 20 MG TABLET PO SCH (10:00)
[2016-03-28] MEDS: DOCUSATE SODIUM 100 MG CAPSULE PO SCH ×2 (10:18→17:32)
[2016-03-28] MEDS: DIGOXIN 0.125 MG TABLET PO SCH (10:18)
[2016-03-28] MEDS: EPLERENONE 25 MG TABLET NG SCH ×2 (10:18→17:31)
[2016-03-28] MEDS: APIXABAN 5 MG TABLET PO SCH ×2 (10:18→17:31)
[2016-03-28] MEDS: FERROUS SULFATE LIQUID 300 MG/5 ML UDC NG SCH (10:18)
[2016-03-28] MEDS: ASPIRIN 81 MG TABLET, CHEWABLE PO SCH (10:18)
--- NOTE | 2016-03-28 12:36 | PDOC PROGRESS REPORT ---
Subjective Progress Note for:: 03/28/16 Subjective:: The patient denies any chest pain or shortness of breath. Physical Exam Vital Signs: Temp Pulse Resp BP Pulse Ox 97.7 F 80 19 125/77 96 03/28/16 11:26 03/28/16 11:26 03/28/16 11:26 03/28/16 11:26 03/28/16 11:26 Intake & Output 03/27/16 03/28/16 03/29/16 06:59 06:59 06:59 Intake Total 11 3679 330 Output Total 2525 600 300 Balance -2514 3079 30 Weight 97.6 kg 103.2 kg General appearance: PRESENT: no acute distress Eye exam: PRESENT: conjunctiva pink. ABSENT: scleral icterus Mouth exam: PRESENT: dry mucosa Neck exam: ABSENT: JVD Respiratory exam: PRESENT: clear to auscultation nic. ABSENT: rales, rhonchi, wheezes Cardiovascular exam: PRESENT: RRR. ABSENT: diastolic murmur, rubs, systolic murmur GI/Abdominal exam: PRESENT: normal bowel sounds, soft. ABSENT: distended, guarding, mass, organolmegaly, rebound, tenderness Extremities exam: ABSENT: calf tenderness, clubbing, pedal edema Neurological exam: PRESENT: alert, awake, oriented to person, oriented to place Psychiatric exam: PRESENT: appropriate affect Results Laboratory Results: 03/28/16 05:03 03/28/16 05:03 03/28/16 03/28/16 05:03 05:03 WBC 12.4 H RBC 4.96 Hgb 14.7 Hct 45.3 MCV 91 MCH 29.7 MCHC 32.5 RDW 15.1 H Plt Count 137 L Seg Neutrophils % Not Reportable Lymphocytes % Not Reportable Monocytes % Not Reportable Eosinophils % Not Reportable Basophils % Not Reportable Absolute Neutrophils Not Reportable Absolute Lymphocytes Not Reportable Absolute Monocytes Not Reportable Absolute Eosinophils Not Reportable Absolute Basophils Not Reportable Sodium 149.6 H Potassium 3.9 Chloride 100 Carbon Dioxide 38 H Anion Gap 12 BUN 50 H Creatinine 0.62 Est GFR ( Amer) > 60 Est GFR (Non-Af Amer) > 60 Glucose 116 H Calcium 9.3 03/17/16 03/17/16 03/17/16 06:00 06:00 13:35 Creatine Kinase 101 91 CK-MB (CK-2) 5.84 H Troponin I 0.056 03/17/16 03/17/16 03/17/16 13:35 19:05 19:05 Creatine Kinase 65 CK-MB (CK-2) 4.99 H 3.77 Troponin I 0.041 0.036 Impressions: Chest X-Ray 03/24/16 06:00 IMPRESSION: Stable appearance. KUB X-Ray 03/24/16 18:30 IMPRESSION: NO RADIOGRAPHIC EVIDENCE FOR ACUTE ABDOMINAL DISEASE. STABLE POSITION WEIGHTED FEEDING TUBE. Gastrostomy Tube Placement 03/25/16 00:00 IMPRESSION: Please see combined report for performance of procedure and radiologic supervision and interpretation. Guidance Fluoroscopy 03/25/16 00:00 IMPRESSION: Dobhoff tube tip in the 3rd portion of the duodenum. Modified Barium Swallow 03/25/16 00:00 IMPRESSION: Laryngeal penetration and tracheal aspiration with thin, nectar, and post swallow residuals. Please see speech pathology report for further details and recommendations. Assessment & Plan - Diagnosis (1) Acute hypoxemic respiratory failure Is this a current diagnosis for this admission?: YesPlan: This is secondary to his aspiration pneumonia as well as COPD exacerbation and congestive heart failure. Will decrease the by mouth steroids. Has completed a course of antibiotics. (2) Aspiration pneumonia Qualifiers: Aspiration pneumonia type: unspecified Lung location: unspecified part of lung Is this a current diagnosis for this admission?: YesPlan: Has completed a course of clindamycin. Culture negative so far. (3) COPD exacerbation Is this a current diagnosis for this admission?: YesPlan: Patient is getting nebulizers and will decrease by mouth steroid dose (4) Systolic and diastolic CHF, chronic Is this a current diagnosis for this admission?: YesPlan: We'll restart the patient on oral Lasix. (5) ARF (acute renal failure) Qualifiers: Acute renal failure type: unspecified Qualified Code(s): N17.9 - Acute kidney failure, unspecified Is this a current diagnosis for this admission?: YesPlan: Resolved. (6) Anemia Qualifiers: Anemia type: iron deficiency Iron deficiency anemia type: unspecified iron deficiency Qualified Code(s): D50.9 - Iron deficiency anemia, unspecified Is this a current diagnosis for this admission?: YesPlan: Hemoglobin has remained stable. (7) Diabetes type 2, controlled Is this a current diagnosis for this admission?: YesPlan: Blood sugars have been stable. Blood sugars have ranged from the 116-148 (8) Coronary artery disease Qualifiers: Coronary Disease-Associated Artery/Lesion type: [place] artery [place] vs. transplanted heart: [place] heart Associated angina: angina presence unspecified Qualified Code(s): I25.10 - Atherosclerotic heart disease of [place] coronary artery without angina pectoris Is this a current diagnosis for this admission?: YesPlan: Denies any chest pain. Continue with aspirin. (9) Anxiety Is this a current diagnosis for this admission?: YesPlan: Stable. (10) GERD (gastroesophageal reflux disease) Is this a current diagnosis for this admission?: YesPlan: Continue Protonix. (11) Seizure disorder Is this a current diagnosis for this admission?: YesPlan: No evidence for seizures. (12) Morbid obesity with BMI of 40.0-44.9, adult Is this a current diagnosis for this admission?: Yes (13) History of implantable cardioverter-defibrillator (ICD) placement Is this a current diagnosis for this admission?: Yes - Time Time Spent with patient: 25-34 minutes - Inpatient Certification Medical Necessity: Need Close Monitoring Due to Risk of Patient Decompensation
[2016-03-28] MEDS: FENOFIBRATE NANOCRYSTALLIZED 48 MG TABLET NG SCH (17:31)
[2016-03-29] MEDS: DEXTROSE 5%-1/2 NORMAL SALINE 1,000 ML IV PRN ×3 (01:18→20:53)
[2016-03-29] MEDS: IPRATROPIUM/ALBUTEROL 0.5-2.5 MG/3 ML AMPUL NEB SCH ×4 (02:22→19:47)
[2016-03-29 05:21] LABS: ABSOLUTE LYMPHOCYTES (AUTO) 0.9 10^3/uL (0.5-4.7); ABSOLUTE MONOCYTES (AUTO) 0.9 10^3/uL (0.1-1.4); BASOPHILS % (AUTO) 0.1 % (0-2); EOSINOPHILS % (AUTO) 0.2 % (0-6); HEMATOCRIT 44.9 % (37.9-51.0); HEMOGLOBIN 14.5 g/dL (13.5-17.0); HGB HCT DIFFERENCE -1.4; LYMPHOCYTES % (AUTO) 6.9 % (13-45); MEAN CORPUSCULAR HEMOGLOBIN 29.5 pg (27.0-33.4); MEAN CORPUSCULAR HGB CONC 32.3 g/dL (32.0-36.0); MEAN CORPUSCULAR VOLUME 91 fl (80-97); RED BLOOD COUNT 4.91 10^6/uL (4.35-5.55); RED CELL DISTRIBUTION WIDTH 15.5 % (11.5-14.0); SEGMENTED NEUTROPHILS % (AUTO) 85.8 % (42-78); WHITE BLOOD COUNT 12.8 10^3/uL (4.0-10.5)
[2016-03-29] MEDS: LANSOPRAZOLE 30 MG TAB.RAP.DR NG SCH ×2 (05:32→17:23)
[2016-03-29] MEDS: MIDODRINE HCL 5 MG TABLET NG SCH ×3 (05:33→21:12)
[2016-03-29 05:49] LABS: BLOOD UREA NITROGEN 46 mg/dL (7-20); CHLORIDE 100 mmol/L (98-107); CREATININE RESULT 0.65 mg/dL (0.52-1.25); GLUCOSE 101 mg/dL (75-110); POTASSIUM 3.7 mmol/L (3.6-5.0); SODIUM 146.7 mmol/L (137-145)
[2016-03-29 06:28] LABS: ANION GAP 8 (5-19)
[2016-03-29 06:33] LABS: CARBON DIOXIDE 39 mmol/L (22-30)
[2016-03-29] MEDS: PREDNISONE 20 MG TABLET PO SCH (10:20)
[2016-03-29] MEDS: ASPIRIN 81 MG TABLET, CHEWABLE PO SCH (10:20)
[2016-03-29] MEDS: EPLERENONE 25 MG TABLET NG SCH ×2 (10:20→17:24)
[2016-03-29] MEDS: FERROUS SULFATE LIQUID 300 MG/5 ML UDC NG SCH (10:20)
[2016-03-29] MEDS: FUROSEMIDE 20 MG TABLET PO SCH (10:20)
[2016-03-29] MEDS: APIXABAN 5 MG TABLET PO SCH ×2 (10:20→17:24)
[2016-03-29] MEDS: DIGOXIN 0.125 MG TABLET PO SCH (10:20)
[2016-03-29] MEDS: DOCUSATE SODIUM 100 MG CAPSULE PO SCH ×2 (10:21→17:24)
--- NOTE | 2016-03-29 12:06 | PDOC PROGRESS REPORT ---
Subjective Progress Note for:: 03/29/16 Subjective:: The patient denies any chest pain or shortness of breath. Physical Exam Vital Signs: Temp Pulse Resp BP Pulse Ox 97.5 F 83 20 110/74 94 03/29/16 07:52 03/29/16 09:59 03/29/16 09:59 03/29/16 07:52 03/29/16 09:59 Intake & Output 03/28/16 03/29/16 03/30/16 06:59 06:59 06:59 Intake Total 3679 3139 Output Total 600 1500 Balance 3079 1639 Weight 103.2 kg 103 kg General appearance: PRESENT: no acute distress Eye exam: PRESENT: conjunctiva pink. ABSENT: scleral icterus Mouth exam: PRESENT: dry mucosa Neck exam: ABSENT: JVD Respiratory exam: PRESENT: rhonchi - Coarse rhonchi bilaterally. Cardiovascular exam: PRESENT: RRR. ABSENT: diastolic murmur, rubs, systolic murmur GI/Abdominal exam: PRESENT: normal bowel sounds, soft. ABSENT: distended, guarding, mass, organolmegaly, rebound, tenderness Extremities exam: ABSENT: calf tenderness, clubbing, pedal edema Neurological exam: PRESENT: alert, awake, oriented to person, oriented to time Psychiatric exam: PRESENT: appropriate affect Skin exam: PRESENT: intact Results Laboratory Results: 03/29/16 04:10 03/29/16 04:10 03/29/16 03/29/16 04:10 04:10 WBC 12.8 H RBC 4.91 Hgb 14.5 Hct 44.9 MCV 91 MCH 29.5 MCHC 32.3 RDW 15.5 H Plt Count 111 L Seg Neutrophils % 85.8 H Lymphocytes % 6.9 L Monocytes % 7.0 Eosinophils % 0.2 Basophils % 0.1 Absolute Neutrophils 11.0 H Absolute Lymphocytes 0.9 Absolute Monocytes 0.9 Absolute Eosinophils 0.0 Absolute Basophils 0.0 Sodium 146.7 H Potassium 3.7 Chloride 100 Carbon Dioxide 39 H Anion Gap 8 BUN 46 H Creatinine 0.65 Est GFR ( Amer) > 60 Est GFR (Non-Af Amer) > 60 Glucose 101 Calcium 9.0 03/17/16 03/17/16 03/17/16 06:00 06:00 13:35 Creatine Kinase 101 91 CK-MB (CK-2) 5.84 H Troponin I 0.056 03/17/16 03/17/16 03/17/16 13:35 19:05 19:05 Creatine Kinase 65 CK-MB (CK-2) 4.99 H 3.77 Troponin I 0.041 0.036 Impressions: Chest X-Ray 03/24/16 06:00 IMPRESSION: Stable appearance. KUB X-Ray 03/24/16 18:30 IMPRESSION: NO RADIOGRAPHIC EVIDENCE FOR ACUTE ABDOMINAL DISEASE. STABLE POSITION WEIGHTED FEEDING TUBE. Gastrostomy Tube Placement 03/25/16 00:00 IMPRESSION: Please see combined report for performance of procedure and radiologic supervision and interpretation. Guidance Fluoroscopy 03/25/16 00:00 IMPRESSION: Dobhoff tube tip in the 3rd portion of the duodenum. Modified Barium Swallow 03/25/16 00:00 IMPRESSION: Laryngeal penetration and tracheal aspiration with thin, nectar, and post swallow residuals. Please see speech pathology report for further details and recommendations. Assessment & Plan - Diagnosis (1) Acute hypoxemic respiratory failure Is this a current diagnosis for this admission?: YesPlan: This is secondary to his aspiration pneumonia as well as COPD exacerbation and congestive heart failure. Will decrease the by mouth steroids. Has completed a course of antibiotics. (2) Aspiration pneumonia Qualifiers: Aspiration pneumonia type: unspecified Lung location: unspecified part of lung Is this a current diagnosis for this admission?: YesPlan: Has completed a course of clindamycin. Culture negative so far. (3) COPD exacerbation Is this a current diagnosis for this admission?: YesPlan: Patient is getting nebulizers and will decrease by mouth steroid dose (4) Systolic and diastolic CHF, chronic Is this a current diagnosis for this admission?: YesPlan: Continue with oral Lasix. (5) ARF (acute renal failure) Qualifiers: Acute renal failure type: unspecified Qualified Code(s): N17.9 - Acute kidney failure, unspecified Is this a current diagnosis for this admission?: YesPlan: Resolved. (6) Anemia Qualifiers: Anemia type: iron deficiency Iron deficiency anemia type: unspecified iron deficiency Qualified Code(s): D50.9 - Iron deficiency anemia, unspecified Is this a current diagnosis for this admission?: YesPlan: Hemoglobin has remained stable. (7) Diabetes type 2, controlled Is this a current diagnosis for this admission?: YesPlan: Blood sugars have been stable. Blood sugars have ranged from the 101-148 (8) Coronary artery disease Qualifiers: Coronary Disease-Associated Artery/Lesion type: [place] artery [place] vs. transplanted heart: [place] heart Associated angina: angina presence unspecified Qualified Code(s): I25.10 - Atherosclerotic heart disease of [place] coronary artery without angina pectoris Is this a current diagnosis for this admission?: YesPlan: Denies any chest pain. Continue with aspirin. (9) Anxiety Is this a current diagnosis for this admission?: YesPlan: Will increase his Haldol dose. (10) GERD (gastroesophageal reflux disease) Is this a current diagnosis for this admission?: YesPlan: Continue Protonix. (11) Seizure disorder Is this a current diagnosis for this admission?: YesPlan: No evidence for seizures. (12) Morbid obesity with BMI of 40.0-44.9, adult Is this a current diagnosis for this admission?: Yes (13) History of implantable cardioverter-defibrillator (ICD) placement Is this a current diagnosis for this admission?: Yes - Time Time Spent with patient: 25-34 minutes - Inpatient Certification Medical Necessity: Need Close Monitoring Due to Risk of Patient Decompensation - Plan Summary Plan Summary: Patient most likely will need rehabilitation.
[2016-03-29] MEDS: LACTULOSE SYRUP 20 GM/30 ML UDCUP PO PRN (14:34)
[2016-03-29] MEDS: HALOPERIDOL LACTATE INJ 5 MG/1 ML VIAL IV PRN ×2 (17:24→22:54)
[2016-03-29] MEDS: FENOFIBRATE NANOCRYSTALLIZED 48 MG TABLET NG SCH (17:24)
[2016-03-30] MEDS: IPRATROPIUM/ALBUTEROL 0.5-2.5 MG/3 ML AMPUL NEB SCH ×4 (02:07→19:53)
[2016-03-30 05:15] LABS: ABSOLUTE LYMPHOCYTES (AUTO) 0.8 10^3/uL (0.5-4.7); ABSOLUTE MONOCYTES (AUTO) 0.7 10^3/uL (0.1-1.4); BASOPHILS % (AUTO) 0.2 % (0-2); EOSINOPHILS % (AUTO) 0.2 % (0-6); HEMATOCRIT 44.1 % (37.9-51.0); HEMOGLOBIN 14.1 g/dL (13.5-17.0); HGB HCT DIFFERENCE -1.8; LYMPHOCYTES % (AUTO) 5.6 % (13-45); MEAN CORPUSCULAR VOLUME 91 fl (80-97); RED BLOOD COUNT 4.86 10^6/uL (4.35-5.55); RED CELL DISTRIBUTION WIDTH 15.3 % (11.5-14.0); WHITE BLOOD COUNT 13.5 10^3/uL (4.0-10.5)
[2016-03-30] MEDS: MIDODRINE HCL 5 MG TABLET NG SCH ×3 (05:18→21:24)
[2016-03-30] MEDS: LANSOPRAZOLE 30 MG TAB.RAP.DR NG SCH ×2 (05:18→17:44)
[2016-03-30 05:25] LABS: ANION GAP 8 (5-19); BLOOD UREA NITROGEN 39 mg/dL (7-20); CALCIUM 8.7 mg/dL (8.4-10.2); CARBON DIOXIDE 38 mmol/L (22-30); CHLORIDE 98 mmol/L (98-107); CREATININE RESULT 0.67 mg/dL (0.52-1.25); GLUCOSE 93 mg/dL (75-110); POTASSIUM 3.6 mmol/L (3.6-5.0); SODIUM 144.4 mmol/L (137-145)
[2016-03-30] MEDS: DEXTROSE 5%-1/2 NORMAL SALINE 1,000 ML IV PRN ×2 (06:37→18:54)
[2016-03-30] MEDS: DOCUSATE SODIUM 100 MG CAPSULE PO SCH ×2 (10:26→17:41)
[2016-03-30] MEDS: FERROUS SULFATE LIQUID 300 MG/5 ML UDC NG SCH (10:36)
[2016-03-30] MEDS: EPLERENONE 25 MG TABLET NG SCH ×2 (10:36→17:45)
[2016-03-30] MEDS: APIXABAN 5 MG TABLET PO SCH ×2 (10:36→17:44)
[2016-03-30] MEDS: DIGOXIN 0.125 MG TABLET PO SCH (10:36)
[2016-03-30] MEDS: FUROSEMIDE 20 MG TABLET PO SCH (10:36)
[2016-03-30] MEDS: PREDNISONE 20 MG TABLET PO SCH (10:36)
[2016-03-30] MEDS: ASPIRIN 81 MG TABLET, CHEWABLE PO SCH (10:36)
--- NOTE | 2016-03-30 14:35 | PDOC PROGRESS REPORT ---
Subjective Progress Note for:: 03/30/16 Subjective:: 75-year-old male with systolic congestive heart failure secondary to cardiomyopathy who was admitted after having a syncopal episode with loss of consciousness requiring CPR and then intubation and mechanical ventilation. Patient also suffered from aspiration pneumonia. The patient has continued to have problems with aspiration and failed a cookie swallow the end of last week. Patient has a Dobbhoff tube which we've been using for feeding however the patient is very upset that he cannot eat and would like to start eating again. Speech therapy recommended that we get another cookie study given that he is a silent aspirator. Physical Exam Vital Signs: Temp Pulse Resp BP Pulse Ox 97.6 F 74 18 118/90 H 91 L 03/30/16 11:24 03/30/16 14:07 03/30/16 14:07 03/30/16 11:24 03/30/16 11:24 Intake & Output 03/29/16 03/30/16 03/31/16 06:59 06:59 06:59 Intake Total 4001 3063 301 Output Total 1500 2600 Balance 2501 463 301 Weight 103 kg 104.6 kg General appearance: PRESENT: no acute distress Head exam: PRESENT: atraumatic, normocephalic Eye exam: PRESENT: conjunctiva pink. ABSENT: scleral icterus Ear exam: PRESENT: normal external ear exam Mouth exam: PRESENT: moist, tongue midline Neck exam: ABSENT: carotid bruit, JVD, lymphadenopathy, thyromegaly Respiratory exam: PRESENT: clear to auscultation nic. ABSENT: rales, rhonchi, wheezes Cardiovascular exam: PRESENT: RRR. ABSENT: diastolic murmur, rubs, systolic murmur GI/Abdominal exam: PRESENT: normal bowel sounds, soft. ABSENT: distended, guarding, mass, organolmegaly, rebound, tenderness Extremities exam: PRESENT: pedal edema - Trace pedal edema.. ABSENT: calf tenderness, clubbing Neurological exam: PRESENT: alert, awake, oriented to person, oriented to place , oriented to time Psychiatric exam: PRESENT: anxious Skin exam: PRESENT: dry, intact, warm. ABSENT: cyanosis, rash Results Laboratory Results: 03/30/16 03:42 03/30/16 03:42 03/30/16 03/30/16 03:42 03:42 WBC 13.5 H RBC 4.86 Hgb 14.1 Hct 44.1 MCV 91 MCH 29.0 MCHC 32.0 RDW 15.3 H Plt Count 107 L Seg Neutrophils % 89.0 H Lymphocytes % 5.6 L Monocytes % 5.0 Eosinophils % 0.2 Basophils % 0.2 Absolute Neutrophils 12.0 H Absolute Lymphocytes 0.8 Absolute Monocytes 0.7 Absolute Eosinophils 0.0 Absolute Basophils 0.0 Sodium 144.4 Potassium 3.6 Chloride 98 Carbon Dioxide 38 H Anion Gap 8 BUN 39 H Creatinine 0.67 Est GFR ( Amer) > 60 Est GFR (Non-Af Amer) > 60 Glucose 93 Calcium 8.7 03/17/16 03/17/16 03/17/16 06:00 06:00 13:35 Creatine Kinase 101 91 CK-MB (CK-2) 5.84 H Troponin I 0.056 03/17/16 03/17/16 03/17/16 13:35 19:05 19:05 Creatine Kinase 65 CK-MB (CK-2) 4.99 H 3.77 Troponin I 0.041 0.036 Impressions: Chest X-Ray 03/24/16 06:00 IMPRESSION: Stable appearance. KUB X-Ray 03/24/16 18:30 IMPRESSION: NO RADIOGRAPHIC EVIDENCE FOR ACUTE ABDOMINAL DISEASE. STABLE POSITION WEIGHTED FEEDING TUBE. Gastrostomy Tube Placement 03/25/16 00:00 IMPRESSION: Please see combined report for performance of procedure and radiologic supervision and interpretation. Guidance Fluoroscopy 03/25/16 00:00 IMPRESSION: Dobhoff tube tip in the 3rd portion of the duodenum. Modified Barium Swallow 03/25/16 00:00 IMPRESSION: Laryngeal penetration and tracheal aspiration with thin, nectar, and post swallow residuals. Please see speech pathology report for further details and recommendations. Assessment & Plan - Diagnosis (1) Acute hypoxemic respiratory failure Is this a current diagnosis for this admission?: YesPlan: This is secondary to his aspiration pneumonia as well as COPD exacerbation and congestive heart failure. Will decrease the by mouth steroids. Has completed a course of antibiotics. (2) Aspiration pneumonia Qualifiers: Aspiration pneumonia type: unspecified Lung location: unspecified part of lung Is this a current diagnosis for this admission?: YesPlan: Has completed a course of clindamycin. Cultures are negative. The patient is scheduled for a cookie swallow test tomorrow. (3) COPD exacerbation Is this a current diagnosis for this admission?: YesPlan: Patient is getting nebulizers and will continue to wean steroid dose (4) Systolic and diastolic CHF, chronic Is this a current diagnosis for this admission?: YesPlan: Continue with oral Lasix. (5) ARF (acute renal failure) Qualifiers: Acute renal failure type: unspecified Qualified Code(s): N17.9 - Acute kidney failure, unspecified Is this a current diagnosis for this admission?: YesPlan: Resolved. (6) Anemia Qualifiers: Anemia type: iron deficiency Iron deficiency anemia type: unspecified iron deficiency Qualified Code(s): D50.9 - Iron deficiency anemia, unspecified Is this a current diagnosis for this admission?: YesPlan: Hemoglobin has remained stable. (7) Diabetes type 2, controlled Is this a current diagnosis for this admission?: YesPlan: Blood sugars have been stable. Blood sugars have ranged from the 93-116 (8) Coronary artery disease Qualifiers: Coronary Disease-Associated Artery/Lesion type: [place] artery [place] vs. transplanted heart: [place] heart Associated angina: angina presence unspecified Qualified Code(s): I25.10 - Atherosclerotic heart disease of [place] coronary artery without angina pectoris Is this a current diagnosis for this admission?: YesPlan: Denies any chest pain. Continue with aspirin. (9) Anxiety Is this a current diagnosis for this admission?: YesPlan: Will continue with Haldol as needed. (10) GERD (gastroesophageal reflux disease) Is this a current diagnosis for this admission?: YesPlan: Continue Protonix. (11) Seizure disorder Is this a current diagnosis for this admission?: YesPlan: No evidence for seizures. (12) Morbid obesity with BMI of 40.0-44.9, adult Is this a current diagnosis for this admission?: Yes (13) History of implantable cardioverter-defibrillator (ICD) placement Is this a current diagnosis for this admission?: Yes - Time Time Spent with patient: 25-34 minutes - Inpatient Certification Medical Necessity: Need Close Monitoring Due to Risk of Patient Decompensation - Plan Summary Plan Summary: Patient is getting a cookie swallow test tomorrow. If he fails this the possibility of getting a G-tube is considered. The patient is adamant that he does not want it although his was uncertain. If he passes it he can start eating again.
[2016-03-30] MEDS: FENOFIBRATE NANOCRYSTALLIZED 48 MG TABLET NG SCH (17:45)
[2016-03-31] MEDS: IPRATROPIUM/ALBUTEROL 0.5-2.5 MG/3 ML AMPUL NEB SCH ×4 (01:47→19:27)
[2016-03-31] MEDS: MIDODRINE HCL 5 MG TABLET NG SCH ×3 (05:10→21:34)
[2016-03-31] MEDS: LANSOPRAZOLE 30 MG TAB.RAP.DR NG SCH ×2 (05:10→18:08)
[2016-03-31] MEDS: DEXTROSE 5%-1/2 NORMAL SALINE 1,000 ML IV PRN (05:10)
[2016-03-31 05:56] LABS: ABSOLUTE EOSINOPHILS # (AUTO) 0.1 10^3/uL (0.0-0.6); ABSOLUTE LYMPHOCYTES (AUTO) 0.8 10^3/uL (0.5-4.7); ABSOLUTE MONOCYTES (AUTO) 0.7 10^3/uL (0.1-1.4); ABSOLUTE NEUT (AUTO) 11.5 10^3/uL (1.7-8.2); BASOPHILS % (AUTO) 0.2 % (0-2); EOSINOPHILS % (AUTO) 0.7 % (0-6); HEMATOCRIT 44.6 % (37.9-51.0); HEMOGLOBIN 14.6 g/dL (13.5-17.0); HGB HCT DIFFERENCE -0.8; LYMPHOCYTES % (AUTO) 5.9 % (13-45); MEAN CORPUSCULAR HEMOGLOBIN 29.3 pg (27.0-33.4); MEAN CORPUSCULAR HGB CONC 32.7 g/dL (32.0-36.0); MEAN CORPUSCULAR VOLUME 89 fl (80-97); MONOCYTES % (AUTO) 5.4 % (3-13); RED BLOOD COUNT 4.99 10^6/uL (4.35-5.55); RED CELL DISTRIBUTION WIDTH 15.3 % (11.5-14.0); SEGMENTED NEUTROPHILS % (AUTO) 87.8 % (42-78); WHITE BLOOD COUNT 13.1 10^3/uL (4.0-10.5)
[2016-03-31 06:11] LABS: ANION GAP 8 (5-19); BLOOD UREA NITROGEN 33 mg/dL (7-20); CALCIUM 8.8 mg/dL (8.4-10.2); CARBON DIOXIDE 36 mmol/L (22-30); CHLORIDE 98 mmol/L (98-107); CREATININE RESULT 0.63 mg/dL (0.52-1.25); GLUCOSE 76 mg/dL (75-110); POTASSIUM 4.1 mmol/L (3.6-5.0); SODIUM 142.3 mmol/L (137-145)
--- NOTE | 2016-03-31 08:28 | ST Inp Modified Barium Swallow ---
Medical Diagnosis - Medical Diagnoses Medical Diagnosis Description & ICD-10 Code(s): aspiration - ICD-10 Tx Diagnosis Coding (1) Dysphagia, oropharyngeal phase ICD-10 Code(s): R13.12 - DYSPHAGIA, OROPHARYNGEAL PHASE (2) Dysphagia, pharyngeal phase ICD-10 Code(s): R13.13 - DYSPHAGIA, PHARYNGEAL PHASE ST Inpatient MBS - General Date: 03/31/16 Date of Onset: 03/17/16 - History History Obtained From: Patient - per EMR -: Medical - per EMR; cardiac arrest, acute on chronic respiratory failure, CHF , loss of consciousness, acute renal failure, aspiration PNA, COPD. Pt intubated from 03/18/16-03/23/16. Chest xray shows small right lobar opacity. Pt has failed swallow screen multiple times per RN. PMHx: dialated cardiomyopathy, pacemaker, COPD, tobacco, afib, CHF, CAD, bronchitis, seizure. MBSS completed to reassess swallow safety and determine if diet may be placed. Pt presents with mostly aphonic speech and weak cough, productive less than 15% of the time (during study). Medications: Medications Reviewed Allergies: Refer to medical record - Subjective Current Nutritional Means: NPO, NG Current PO Diet: N/A (NPO) Current Symptoms: Coughing, Pneumonia Pain: 0/5 - Objective Assessment: Upright, Left Lateral - Food Trials Food Trials Used: Thin liquids, [place] thick liquids, Pureed The Patient: Required Assist - Assessment Labial Function: Impaired - impaired seal Lingual Function: Impaired - impaired bolus propulsion, impaired bolus control Mandibular Function: Impaired - weak Velo-Pharyngeal Function: Unremarkable Laryngeal Function: Volitional Swallow, Weak Cough, breathy voice - mostly aphonic - Pharyngeal Stage Initiation of Pharyngeal Stage: Delayed Reflex Delay Time (seconds): 1 Decreased Laryngeal Elevation: Yes - moderate-severe Reduced Velo-Pharyngeal Closure: no Reduced Pressure Generation: Yes - mild-moderate Reduced Tongue Base Retraction: Yes - mild-moderate Pre-Swallowing Pooling in Valleculae: Moderate - on thin, nectar, and puree Pre-Swallowing Pooling in Pyriforms: Mild - on thin and nectar Reduced Thyro-Hyiod Approximation: Yes - moderate-severe Reduced Epiglottic Excursion: Yes - significant Reduced Pharyngeal Peristalsis: Yes - mild Multiple Swallows With: Cleared w/ Dry Swallow Post Swallow Residuals in Valleculae: Mild - on thin and puree, mild-moderate on nectar Post Swallow Residuals in Pyriforms: Mild - trace on all-possible esophageal backflow - Impression/Summary Laryngeal Penetration: Yes Tracheal Aspiration: yes, cough, delayed cough, during swallow, after swallow Effective Compensatory Strategies: hard swallow Ineffective Compensatory Strategies: chin tuck Patient Presents With: Pharyngeal stage dysph., Oral-Pharyngeal dysph. Risk of Aspiration: Moderate - Recommendations NPO: no Solid Diet Recommendations: Pureed Liquid Diet Recommendations: Thin Strict Aspitarion Precautions: Yes Dysphagia Therapy with ACTIVITIES ASSISTANT: Yes, Inpatient, Outpatient, Home Health, Discharge Recommended Techniques: Fully Upright During Meal, Dry Swallow After Bite, Small Bites and Sips Supervision: Distant Other Recommendations: 1) DIET: Smooth puree and thin liquids by spoon only. 2 ) STRATEGIES: Dry swallow after solids and liquids. 3) Aspiration precautions. 4) ST to continue to follow pt in acute care setting for swallowing exercises. ST has completed 1 treatment this week by completing MBSS. ST to see pt once more this week. SUMMARY: Pt presents with slightly improved swallow compared to previous study. Pt previously observed to aspirate all consistencies in previous study. However currently, pt is still at risk of aspiration on any PO diet. Cough or delayed cough seen with aspiration events. Pt observed to present with premature spillage into pharynx, mild residuals of thin in valleculae, mild residuals of puree in valleculae, mild-moderate residuals of nectar in valleculae. Residuals observed to clear with second swallow. Microaspiration observed with thin liquids. Increased volume of aspiration seen on thin by cup. Imporved bolus management with thin by spoon. No aspiration of nectar observed, however due to increased residuals of nectar pt may be at higher risk of aspiration on nectar after the swallow. ST contacted MD regarding pt, MD verbalized understanding and provided telephone order for cardiac diet placement. - Time Total Time: 20 Total Timed Minutes: 1 [facility] [place] Impairment Category - Rationale Based On Rationale Based On: Clin Find., Obj Measures - Swallowing Current G8996: CL 60-79% Impaired Goal G8997: CJ 20-39% Impaired
[2016-03-31] MEDS: DOCUSATE SODIUM 100 MG CAPSULE PO SCH ×2 (08:46→18:11)
[2016-03-31] MEDS: DIGOXIN 0.125 MG TABLET PO SCH (08:51)
[2016-03-31] MEDS: FUROSEMIDE 20 MG TABLET PO SCH (08:51)
[2016-03-31] MEDS: EPLERENONE 25 MG TABLET NG SCH ×2 (08:51→18:10)
[2016-03-31] MEDS: ASPIRIN 81 MG TABLET, CHEWABLE PO SCH (08:52)
[2016-03-31] MEDS: PREDNISONE 20 MG TABLET PO SCH (08:52)
[2016-03-31] MEDS: FERROUS SULFATE LIQUID 300 MG/5 ML UDC NG SCH (08:52)
[2016-03-31] MEDS: APIXABAN 5 MG TABLET PO SCH ×2 (08:52→18:10)
[2016-03-31] MEDS: ACETAMINOPHEN SOLN 325 MG/10.15 ML UDCUP PO PRN (14:15)
[2016-03-31] MEDS ORDERED: DEXTROSE 5%-1/2 NORMAL SALINE 1,000 ML IV PRN (16:03)
--- NOTE | 2016-03-31 16:07 | PDOC PROGRESS REPORT ---
Subjective Progress Note for:: 03/31/16 Subjective:: Patient off mechanical ventilator. Patient on nasogastric tube feedings. Speech therapy evaluated the patient and able to tolerate some consistency of food. Still at high risk for aspiration. No reported temperature spikes, nausea or vomiting, diarrhea, respiratory distress. Patient tried to be fed orally and tolerated it according to the staff. Physical Exam Vital Signs: Temp Pulse Resp BP Pulse Ox 98.1 F 78 16 111/77 94 03/31/16 12:01 03/31/16 14:00 03/31/16 13:47 03/31/16 12:01 03/31/16 13:47 Intake & Output 03/30/16 03/31/16 04/01/16 06:59 06:59 06:59 Intake Total 3063 4067 189 Output Total 2600 2425 900 Balance 463 1642 -711 Weight 104.6 kg 103.6 kg General appearance: PRESENT: no acute distress, cooperative, other - Nasogastric tube in place Head exam: PRESENT: normocephalic Eye exam: PRESENT: EOMI Mouth exam: PRESENT: moist, neck supple Neck exam: ABSENT: JVD Respiratory exam: PRESENT: rhonchi - Right more than the left. ABSENT: wheezes Cardiovascular exam: PRESENT: irregular rhythm. ABSENT: gallop GI/Abdominal exam: PRESENT: normal bowel sounds, soft. ABSENT: distended, tenderness Extremities exam: ABSENT: pedal edema Neurological exam: PRESENT: alert, awake Psychiatric exam: ABSENT: agitated Focused psych exam: ABSENT: restlessness Skin exam: PRESENT: dry, warm. ABSENT: cyanosis Results Laboratory Results: 03/31/16 05:30 03/31/16 05:30 03/31/16 03/31/16 05:30 05:30 WBC 13.1 H RBC 4.99 Hgb 14.6 Hct 44.6 MCV 89 MCH 29.3 MCHC 32.7 RDW 15.3 H Plt Count 107 L Seg Neutrophils % 87.8 H Lymphocytes % 5.9 L Monocytes % 5.4 Eosinophils % 0.7 Basophils % 0.2 Absolute Neutrophils 11.5 H Absolute Lymphocytes 0.8 Absolute Monocytes 0.7 Absolute Eosinophils 0.1 Absolute Basophils 0.0 Sodium 142.3 Potassium 4.1 Chloride 98 Carbon Dioxide 36 H Anion Gap 8 BUN 33 H Creatinine 0.63 Est GFR ( Amer) > 60 Est GFR (Non-Af Amer) > 60 Glucose 76 Calcium 8.8 03/17/16 03/17/16 03/17/16 06:00 06:00 13:35 Creatine Kinase 101 91 CK-MB (CK-2) 5.84 H Troponin I 0.056 03/17/16 03/17/16 03/17/16 13:35 19:05 19:05 Creatine Kinase 65 CK-MB (CK-2) 4.99 H 3.77 Troponin I 0.041 0.036 Impressions: Chest X-Ray 03/24/16 06:00 IMPRESSION: Stable appearance. KUB X-Ray 03/24/16 18:30 IMPRESSION: NO RADIOGRAPHIC EVIDENCE FOR ACUTE ABDOMINAL DISEASE. STABLE POSITION WEIGHTED FEEDING TUBE. Gastrostomy Tube Placement 03/25/16 00:00 IMPRESSION: Please see combined report for performance of procedure and radiologic supervision and interpretation. Guidance Fluoroscopy 03/25/16 00:00 IMPRESSION: Dobhoff tube tip in the 3rd portion of the duodenum. Assessment & Plan - Diagnosis (1) Acute hypoxemic respiratory failure Is this a current diagnosis for this admission?: Yes (2) Aspiration pneumonia Qualifiers: Aspiration pneumonia type: unspecified Lung location: unspecified part of lung Is this a current diagnosis for this admission?: Yes (3) COPD exacerbation Is this a current diagnosis for this admission?: Yes (4) Hypotension Qualifiers: Hypotension type: unspecified hypotension type Qualified Code(s): I95.9 - Hypotension, unspecified Is this a current diagnosis for this admission?: Yes (5) Acute on chronic combined systolic and diastolic CHF (congestive heart failure) Is this a current diagnosis for this admission?: Yes (6) Coagulopathy Is this a current diagnosis for this admission?: Yes (7) Cardiomyopathy Qualifiers: Cardiomyopathy type: dilated Qualified Code(s): I42.0 - Dilated cardiomyopathy Is this a current diagnosis for this admission?: Yes (8) Coronary artery disease Qualifiers: Coronary Disease-Associated Artery/Lesion type: [place] artery [place] vs. transplanted heart: [place] heart Associated angina: angina presence unspecified Qualified Code(s): I25.10 - Atherosclerotic heart disease of [place] coronary artery without angina pectoris Is this a current diagnosis for this admission?: Yes (9) Essential hypertension Is this a current diagnosis for this admission?: Yes (10) Afib Qualifiers: Atrial fibrillation type: unspecified Qualified Code(s): I48.91 - Unspecified atrial fibrillation Is this a current diagnosis for this admission?: Yes (11) Diabetes mellitus type 2 in obese Is this a current diagnosis for this admission?: Yes (12) Seizure disorder Is this a current diagnosis for this admission?: Yes - Time Time Spent with patient: 25-34 minutes - Plan Summary Plan Summary: Continue steroids and bronchodilators. Begin diet prior speech therapy recommendation. Discontinue nasogastric tube. IV fluid to keep vein open. Continue other medications and supportive care. Monitor WBC. Monitor for aspiration.
[2016-03-31] MEDS: HALOPERIDOL LACTATE INJ 5 MG/1 ML VIAL IV PRN (18:08)
[2016-03-31] MEDS: FENOFIBRATE NANOCRYSTALLIZED 48 MG TABLET NG SCH (18:10)
[2016-04-01] MEDS: IPRATROPIUM/ALBUTEROL 0.5-2.5 MG/3 ML AMPUL NEB SCH ×4 (02:15→19:35)
[2016-04-01 05:35] LABS: HEMATOCRIT 42.1 % (37.9-51.0); HGB HCT DIFFERENCE -0.1; MEAN CORPUSCULAR HEMOGLOBIN 29.9 pg (27.0-33.4); MEAN CORPUSCULAR HGB CONC 33.4 g/dL (32.0-36.0); MEAN CORPUSCULAR VOLUME 90 fl (80-97); RED CELL DISTRIBUTION WIDTH 15.6 % (11.5-14.0); WHITE BLOOD COUNT 11.6 10^3/uL (4.0-10.5)
[2016-04-01] MEDS: LANSOPRAZOLE 30 MG TAB.RAP.DR NG SCH ×2 (06:43→17:30)
[2016-04-01] MEDS: MIDODRINE HCL 5 MG TABLET NG SCH ×3 (06:43→23:36)
[2016-04-01] MEDS: DOCUSATE SODIUM 100 MG CAPSULE PO SCH ×2 (10:19→17:30)
[2016-04-01] MEDS: PREDNISONE 20 MG TABLET PO SCH (10:19)
[2016-04-01] MEDS: NYSTATIN TOPICAL POWDER 15 GM TP SCH ×2 (10:19→17:31)
[2016-04-01] MEDS: DIGOXIN 0.125 MG TABLET PO SCH (10:19)
[2016-04-01] MEDS: APIXABAN 5 MG TABLET PO SCH ×2 (10:19→17:30)
[2016-04-01] MEDS: EPLERENONE 25 MG TABLET NG SCH ×2 (10:20→17:30)
[2016-04-01] MEDS: ASPIRIN 81 MG TABLET, CHEWABLE PO SCH (10:20)
[2016-04-01] MEDS: FUROSEMIDE 20 MG TABLET PO SCH (10:20)
[2016-04-01] MEDS: FERROUS SULFATE LIQUID 300 MG/5 ML UDC NG SCH (10:21)
--- NOTE | 2016-04-01 12:09 | PDOC PROGRESS REPORT ---
Subjective Progress Note for:: 04/01/16 Subjective:: Patient off mechanical ventilator. Patient off nasogastric tube feedings as well. Speech therapy evaluated the patient and able to tolerate some consistency of food. Still at high risk for aspiration. No reported temperature spikes, nausea or vomiting, diarrhea, respiratory distress. Patient tried to be fed orally and tolerated it according to the staff. No mreported worsening chest congestion. Physical Exam Vital Signs: Temp Pulse Resp BP Pulse Ox 97.9 F 71 20 102/75 100 04/01/16 11:39 04/01/16 11:39 04/01/16 11:39 04/01/16 11:39 04/01/16 11:39 Intake & Output 03/31/16 04/01/16 04/02/16 06:59 06:59 06:59 Intake Total 4067 1874 Output Total 2425 4945 Balance 1642 -1001 Weight 103.6 kg 105.4 kg General appearance: PRESENT: no acute distress, cooperative Head exam: PRESENT: normocephalic Eye exam: PRESENT: EOMI Mouth exam: PRESENT: moist, neck supple Neck exam: ABSENT: JVD Respiratory exam: PRESENT: rhonchi - bilateral Cardiovascular exam: PRESENT: irregular rhythm. ABSENT: gallop GI/Abdominal exam: PRESENT: hypoactive bowel sounds, soft. ABSENT: distended, tenderness Extremities exam: ABSENT: pedal edema Neurological exam: PRESENT: alert, awake, oriented to situation Skin exam: PRESENT: dry, warm. ABSENT: cyanosis Results Laboratory Results: 04/01/16 05:00 03/31/16 05:30 04/01/16 05:00 WBC 11.6 H RBC 4.70 Hgb 14.0 Hct 42.1 MCV 90 MCH 29.9 MCHC 33.4 RDW 15.6 H Plt Count 97 L 03/17/16 03/17/16 03/17/16 06:00 06:00 13:35 Creatine Kinase 101 91 CK-MB (CK-2) 5.84 H Troponin I 0.056 03/17/16 03/17/16 03/17/16 13:35 19:05 19:05 Creatine Kinase 65 CK-MB (CK-2) 4.99 H 3.77 Troponin I 0.041 0.036 Impressions: Chest X-Ray 03/24/16 06:00 IMPRESSION: Stable appearance. KUB X-Ray 03/24/16 18:30 IMPRESSION: NO RADIOGRAPHIC EVIDENCE FOR ACUTE ABDOMINAL DISEASE. STABLE POSITION WEIGHTED FEEDING TUBE. Gastrostomy Tube Placement 03/25/16 00:00 IMPRESSION: Please see combined report for performance of procedure and radiologic supervision and interpretation. Guidance Fluoroscopy 03/25/16 00:00 IMPRESSION: Dobhoff tube tip in the 3rd portion of the duodenum. Modified Barium Swallow 03/31/16 00:00 IMPRESSION: LARYNGEAL PENETRATION AND SUSPECTED ASPIRATION OF POST SWALLOW RESIDUALS FROM THE VALLECULAE. PLEASE SEE SPEECH PATHOLOGIST REPORT FOR OTHER FINDINGS AND RECOMMENDATIONS. Assessment & Plan - Diagnosis (1) Acute hypoxemic respiratory failure Is this a current diagnosis for this admission?: Yes (2) Aspiration pneumonia Qualifiers: Aspiration pneumonia type: unspecified Lung location: unspecified part of lung Is this a current diagnosis for this admission?: Yes (3) COPD exacerbation Is this a current diagnosis for this admission?: Yes (4) Hypotension Qualifiers: Hypotension type: unspecified hypotension type Qualified Code(s): I95.9 - Hypotension, unspecified Is this a current diagnosis for this admission?: Yes (5) Acute on chronic combined systolic and diastolic CHF (congestive heart failure) Is this a current diagnosis for this admission?: Yes (6) Coagulopathy Is this a current diagnosis for this admission?: Yes (7) Cardiomyopathy Qualifiers: Cardiomyopathy type: dilated Qualified Code(s): I42.0 - Dilated cardiomyopathy Is this a current diagnosis for this admission?: Yes (8) Coronary artery disease Qualifiers: Coronary Disease-Associated Artery/Lesion type: [place] artery [place] vs. transplanted heart: [place] heart Associated angina: angina presence unspecified Qualified Code(s): I25.10 - Atherosclerotic heart disease of [place] coronary artery without angina pectoris Is this a current diagnosis for this admission?: Yes (9) Essential hypertension Is this a current diagnosis for this admission?: Yes (10) Afib Qualifiers: Atrial fibrillation type: unspecified Qualified Code(s): I48.91 - Unspecified atrial fibrillation Is this a current diagnosis for this admission?: Yes (11) Diabetes mellitus type 2 in obese Is this a current diagnosis for this admission?: Yes (12) Seizure disorder Is this a current diagnosis for this admission?: Yes - Time Time Spent with patient: 25-34 minutes - Plan Summary Plan Summary: D/C pena catheter. Begin oral intake. D/C risperdal. Observe for 24h on oral intake. Recheck CXT. If stable Ok to transfer to subacute rehab.
[2016-04-01] MEDS: FENOFIBRATE NANOCRYSTALLIZED 48 MG TABLET NG SCH (17:30)
[2016-04-02] MEDS: IPRATROPIUM/ALBUTEROL 0.5-2.5 MG/3 ML AMPUL NEB SCH ×4 (01:39→19:49)
[2016-04-02 03:07] LABS: ANION GAP 6 (5-19); BLOOD UREA NITROGEN 24 mg/dL (7-20); CALCIUM 8.5 mg/dL (8.4-10.2); CARBON DIOXIDE 35 mmol/L (22-30); CHLORIDE 98 mmol/L (98-107); CREATINE KINASE 22 U/L (55-170); CREATININE RESULT 0.77 mg/dL (0.52-1.25); DIGOXIN 1.27 ng/mL (0.8-2.0); GLUCOSE 89 mg/dL (75-110); MAGNESIUM 1.9 mg/dL (1.6-2.3); POTASSIUM 4.1 mmol/L (3.6-5.0); SODIUM 138.8 mmol/L (137-145)
[2016-04-02 03:16] LABS: CREATINE KINASE MB 2.16 ng/mL (<4.55)
[2016-04-02 03:19] LABS: TROPONIN I 0.052 ng/mL
[2016-04-02] MEDS: LANSOPRAZOLE 30 MG TAB.RAP.DR NG SCH ×2 (06:12→18:19)
[2016-04-02] MEDS: MIDODRINE HCL 5 MG TABLET NG SCH ×3 (06:12→22:44)
--- NOTE | 2016-04-02 08:17 | EKG REPORT ---
SEVERITY:- ABNORMAL ECG - VENTRICULAR-PACED COMPLEXES : Confirmed by: Emanuel Roman MD 02-Apr-2016 08:17:06
[2016-04-02] MEDS: APIXABAN 5 MG TABLET PO SCH ×2 (10:16→18:19)
[2016-04-02] MEDS: EPLERENONE 25 MG TABLET NG SCH ×2 (10:16→18:19)
[2016-04-02] MEDS: DOCUSATE SODIUM 100 MG CAPSULE PO SCH ×2 (10:16→18:19)
[2016-04-02] MEDS: FUROSEMIDE 20 MG TABLET PO SCH (10:16)
[2016-04-02] MEDS: PREDNISONE 20 MG TABLET PO SCH (10:16)
[2016-04-02] MEDS: ASPIRIN 81 MG TABLET, CHEWABLE PO SCH (10:17)
[2016-04-02] MEDS: FERROUS SULFATE LIQUID 300 MG/5 ML UDC NG SCH ×2 (10:17→18:20)
[2016-04-02] MEDS: DIGOXIN 0.125 MG TABLET PO SCH (10:17)
[2016-04-02] MEDS: NYSTATIN TOPICAL POWDER 15 GM TP SCH ×2 (10:21→18:22)
[2016-04-02] MEDS ORDERED: MAGNESIUM OXIDE 400 MG TABLET PO ONE (13:54)
[2016-04-02] MEDS ORDERED: FUROSEMIDE INJ/PF 40 MG/4 ML SDV IV ONE (13:56)
[2016-04-02] MEDS ORDERED: PREDNISONE 20 MG TABLET PO SCH (13:57)
--- NOTE | 2016-04-02 14:09 | PDOC PROGRESS REPORT ---
Subjective Progress Note for:: 04/02/16 Subjective:: Patient is better. Patient off nasogastric tube and tolerating oral intake well. Speech therapy evaluated the patient and able to tolerate some consistency of food. Still at high risk for aspiration. No reported temperature spikes, nausea or vomiting, diarrhea, respiratory distress. No reported worsening chest congestion. Reported episode of ventricular tachycardia. Patient voiced no new complaints at all. Patient stated that he' s doing better Physical Exam Vital Signs: Temp Pulse Resp BP Pulse Ox 97.8 F 70 19 107/66 98 04/02/16 11:39 04/02/16 11:39 04/02/16 11:39 04/02/16 11:39 04/02/16 11:39 Intake & Output 04/01/16 04/02/16 04/03/16 06:59 06:59 06:59 Intake Total 1874 871 50 Output Total 2875 2575 Balance -1001 -1704 50 Weight 105.4 kg 104.3 kg General appearance: PRESENT: no acute distress, cooperative Head exam: PRESENT: normocephalic Eye exam: PRESENT: EOMI Mouth exam: PRESENT: moist, neck supple Neck exam: ABSENT: JVD Respiratory exam: PRESENT: rhonchi - Bilateral but less Cardiovascular exam: PRESENT: RRR. ABSENT: gallop GI/Abdominal exam: PRESENT: normal bowel sounds, soft. ABSENT: distended, tenderness Extremities exam: ABSENT: pedal edema Neurological exam: PRESENT: alert, awake, oriented to situation Skin exam: PRESENT: dry, warm. ABSENT: cyanosis Results Laboratory Results: 04/01/16 05:00 04/02/16 02:39 04/02/16 04/02/16 02:39 02:39 Sodium 138.8 Potassium 4.1 Chloride 98 Carbon Dioxide 35 H Anion Gap 6 BUN 24 H Creatinine 0.77 Est GFR ( Amer) > 60 Est GFR (Non-Af Amer) > 60 Glucose 89 Calcium 8.5 Magnesium 1.9 TSH 1.18 03/17/16 03/17/16 03/17/16 06:00 06:00 13:35 Creatine Kinase 101 91 CK-MB (CK-2) 5.84 H Troponin I 0.056 03/17/16 03/17/16 03/17/16 13:35 19:05 19:05 Creatine Kinase 65 CK-MB (CK-2) 4.99 H 3.77 Troponin I 0.041 0.036 04/02/16 04/02/16 02:39 02:39 Creatine Kinase 22 L CK-MB (CK-2) 2.16 Troponin I 0.052 Impressions: KUB X-Ray 03/24/16 18:30 IMPRESSION: NO RADIOGRAPHIC EVIDENCE FOR ACUTE ABDOMINAL DISEASE. STABLE POSITION WEIGHTED FEEDING TUBE. Gastrostomy Tube Placement 03/25/16 00:00 IMPRESSION: Please see combined report for performance of procedure and radiologic supervision and interpretation. Guidance Fluoroscopy 03/25/16 00:00 IMPRESSION: Dobhoff tube tip in the 3rd portion of the duodenum. Modified Barium Swallow 03/31/16 00:00 IMPRESSION: LARYNGEAL PENETRATION AND SUSPECTED ASPIRATION OF POST SWALLOW RESIDUALS FROM THE VALLECULAE. PLEASE SEE SPEECH PATHOLOGIST REPORT FOR OTHER FINDINGS AND RECOMMENDATIONS. Chest X-Ray 04/01/16 12:03 IMPRESSION: Findings consistent with either a compensated cardiac status or mild degree of congestive failure. Other findings as noted above Assessment & Plan - Diagnosis (1) Acute hypoxemic respiratory failure Is this a current diagnosis for this admission?: Yes (2) Aspiration pneumonia Qualifiers: Aspiration pneumonia type: unspecified Lung location: unspecified part of lung Is this a current diagnosis for this admission?: Yes (3) COPD exacerbation Is this a current diagnosis for this admission?: Yes (4) Hypotension Qualifiers: Hypotension type: unspecified hypotension type Qualified Code(s): I95.9 - Hypotension, unspecified Is this a current diagnosis for this admission?: Yes (5) Acute on chronic combined systolic and diastolic CHF (congestive heart failure) Is this a current diagnosis for this admission?: Yes (6) Coagulopathy Is this a current diagnosis for this admission?: Yes (7) Cardiomyopathy Qualifiers: Cardiomyopathy type: dilated Qualified Code(s): I42.0 - Dilated cardiomyopathy Is this a current diagnosis for this admission?: Yes (8) Coronary artery disease Qualifiers: Coronary Disease-Associated Artery/Lesion type: squ[place] artery [place] vs. transplanted heart: squaxin heart Associated angina: angina presence unspecified Qualified Code(s): I25.10 - Atherosclerotic heart disease of squaxin coronary artery without angina pectoris Is this a current diagnosis for this admission?: Yes (9) Essential hypertension Is this a current diagnosis for this admission?: Yes (10) Afib Qualifiers: Atrial fibrillation type: unspecified Qualified Code(s): I48.91 - Unspecified atrial fibrillation Is this a current diagnosis for this admission?: Yes (11) Diabetes mellitus type 2 in obese Is this a current diagnosis for this admission?: Yes (12) Seizure disorder Is this a current diagnosis for this admission?: Yes - Time Time Spent with patient: 15-24 minutes - Plan Summary Plan Summary: Discontinue intravenous fluids. Replace magnesium above 2. We will increase the patient's Lasix as chest x-ray still shows some congestion. We will give a dose of intravenous Lasix today. The patient continues to improve by the morning we will transfer to subacute rehabilitation. Continue supportive care. Discussed with cardiology who agreed with the plan. Patient has a defibrillator.
[2016-04-02] MEDS: FENOFIBRATE NANOCRYSTALLIZED 48 MG TABLET NG SCH (18:19)
[2016-04-02] MEDS: ACETAMINOPHEN SOLN 325 MG/10.15 ML UDCUP PO PRN (23:59)
[2016-04-03] MEDS: IPRATROPIUM/ALBUTEROL 0.5-2.5 MG/3 ML AMPUL NEB SCH ×3 (02:42→13:22)
[2016-04-03] MEDS: LANSOPRAZOLE 30 MG TAB.RAP.DR NG SCH (06:08)
[2016-04-03] MEDS: MIDODRINE HCL 5 MG TABLET NG SCH (06:08)
[2016-04-03] MEDS: DOCUSATE SODIUM 100 MG CAPSULE PO SCH (09:58)
[2016-04-03] MEDS: ASPIRIN 81 MG TABLET, CHEWABLE PO SCH (09:58)
[2016-04-03] MEDS: DIGOXIN 0.125 MG TABLET PO SCH (09:58)
[2016-04-03] MEDS: EPLERENONE 25 MG TABLET NG SCH (09:59)
[2016-04-03] MEDS: APIXABAN 5 MG TABLET PO SCH (09:59)
[2016-04-03] MEDS ORDERED: FUROSEMIDE 20 MG TABLET PO SCH (10:00)
[2016-04-03] MEDS: NYSTATIN TOPICAL POWDER 15 GM TP SCH (10:01)
--- NOTE | 2016-04-03 10:28 | PDOC TRANSFER SUMMARY ---
General - Admit/Disc Date/PCP Admission Date/Primary Care Provider: 03/17/16 05:22 KEDAR MACKENZIE Discharge Date: 04/03/16 - Discharge Diagnosis (1) Acute hypoxemic respiratory failure Is this a current diagnosis for this admission?: Yes (2) Aspiration pneumonia Is this a current diagnosis for this admission?: Yes (3) COPD exacerbation Is this a current diagnosis for this admission?: Yes (4) Hypotension Is this a current diagnosis for this admission?: Yes (5) Acute on chronic combined systolic and diastolic CHF (congestive heart failure) Is this a current diagnosis for this admission?: Yes (6) Coagulopathy Is this a current diagnosis for this admission?: Yes (7) Cardiomyopathy Is this a current diagnosis for this admission?: Yes (8) Coronary artery disease Is this a current diagnosis for this admission?: Yes (9) Essential hypertension Is this a current diagnosis for this admission?: Yes (10) Afib Is this a current diagnosis for this admission?: Yes (11) Diabetes mellitus type 2 in obese Is this a current diagnosis for this admission?: Yes (12) Seizure disorder Is this a current diagnosis for this admission?: Yes - Additional Information Resuscitation Status: Full Code Discharge Diet: Cardiac - low-fat low-salt, Diabetic - no concentrated sweets, Other (Comments) - pured diet with thin liquids Discharge Activity: Activity As Tolerated, Balance Activity w/Rest, Slowly Increase Activity, Weigh Daily Home Medications: Tamsulosin HCl [Flomax] 0.4 mg PO QPM 01/09/15 Ferrous Sulfate [Feosol 325 mg Tablet] 325 mg PO DAILY #30 tablet 01/13/15 Aspirin [Aspirin EC] 81 mg PO DAILY 05/12/15 Fenofibrate [Lofibra] 54 mg PO DAILY 05/12/15 Digoxin [Lanoxin 0.125 mg Tablet] 0.125 mg PO DAILY #30 tablet 06/02/15 Midodrine HCl [Proamatine 5 mg Tablet] 10 mg PO TID #90 tablet 06/02/15 Lisinopril [Prinivil 5 mg Tablet] 2.5 mg PO DAILY #60 tablet 06/04/15 Eplerenone [Inspra 25 mg Tablet] 25 mg PO BID 09/12/15 Apixaban [Eliquis 5 mg Tablet] 5 mg PO BID 03/17/16 Budesonide/Formoterol Fumarate [Symbicort HFA 80-4.5 mcg Inhaler 6.9 gm] 2 puff IH BID 03/17/16 Furosemide [Lasix] 60 mg PO QAM 03/17/16 Gabapentin [Neurontin 300 mg Capsule] 300 mg PO Q8 03/17/16 Metoprolol Succinate 12.5 mg PO DAILY 03/17/16 Docusate Sodium [Colace 100 mg Capsule] 100 mg PO BID capsule 04/03/16 Ipratropium/Albuterol Sulfate [Duoneb 3 ml Ampul] 3 ml NEB RTQ6 vial.neb Lactulose [Cephulac Syrup 20 gm/30 ml Udcup] 20 gm PO Q6HP PRN udc 04/03/16 Lansoprazole [Prevacid 30 mg Odt Tablet] 30 mg NG BID@0600,1700 tab.rap. 12/08 Nystatin [Mycostatin Topical Powder 15 gm] 1 applic TP BID bottle 04/03/16 Potassium Chloride [Klor-Con 10 Meq Tablet.sa] 20 meq PO DAILY #0 04/03/16 Prednisone [Deltasone 20 mg Tablet] 30 mg PO DAILY tablet 04/03/16 Additional Information: 1. Prednisone 30 mg daily for 1 day, then 20 mg by mouth daily for 2 days, then 10 mg by mouth daily for another 2 days, then stop. 2. Suction oral secretions as needed History of Present Illness Admission Date/PCP: 03/17/16 05:22 KEDAR MACKENZIE Patient complains of: Altered mental status History of Present Illness: TUTU MURRAY is a 75 year old male with a past medical history of dilated cardiomyopathy with an ejection fraction of 25% and biventricular pacemaker, pressor dependent on midodrine 10mg 3 times a day, COPD with persistent tobacco , A. fib on Eliquis, type II diabetes and dyslipidemia. Who is noted by family members to have an abrupt loss of consciousness and possible cardiac arrest initiating CPR and calling EMS who found him with a weak pulse. Patient was intubated and an IV catheter in the left leg placed. Then brought to the emergency room with cyanosis, hypotension 70/50 and hypothermia 95.5 but requiring 100% FiO2 satting 90%. Imaging reveals lifelines in place including a right IJ and ABG reveals respiratory acidosis and hypoxia he is referred to the hospitalist for admission for acute renal failure. This history was reviewed. It seems patient was found unresponsive at home. Hospital Course Hospital Course: The patient was admitted to the intensive care unit. The patient was intubated and sedated with Diprivan. Vasopressors were started for hypotension. Patient was placed on Cardizem drip for rapid atrial fibrillation. Cardiology was consulted. Patient placed on digoxin. Pulmonary was likewise consulted for ventilator management. Patient also diagnosed with aspiration pneumonia and therefore broad-spectrum antibiotics was given. He was also treated for COPD exacerbation with bronchodilators and intravenous steroids . Patient had a poor IV access and therefore surgery was consulted for central line placement. Patient has a prolonged course but improved slowly. Electrolytes were monitored and were replaced. Patient has chronic atrial fibrillation and chronically anticoagulated and therefore is eliquis was resumed. Patient also benefited from gentle IV hydration. Eventually diuretics was resumed as the patient's blood pressure improved and chest congestion noted on serial x-rays shows improvement as well. He was eventually successfully extubated after prolonged course in the ICU. Patient completed antibiotic therapy. Cardizem drip was discontinued. Diprivan was likewise discontinued. Patient was transferred to [facility]. Intravenous steroids shifted to oral. Patient had issues related to swallowing and therefore speech therapy evaluated the patient. A recommendation of pureed Diet with thin liquids was made. Patient remains at high risk as reported for aspiration. However with time, as mental status improves, no aspiration noted while on oral intake. He has a lot of congestion on his trachea therefore oral and nasotracheal suctioning as needed was done. Follow-up chest x-rays showing edema pattern where diuretic dose was increased and showed improvement. Physical therapy was instituted. Steroids were weaned. His cultures were negative. The rest of the hospital stay is essentially unremarkable. paraplanner was consulted for subacute rehabilitation and when a bed was available he was eventually transferred. Physical Exam Vital Signs: Temp Pulse Resp BP Pulse Ox 97.7 F 75 16 128/88 H 98 04/03/16 04:00 04/03/16 07:48 04/03/16 07:48 04/03/16 04:00 04/03/16 07:48 Intake & Output 04/02/16 04/03/16 04/04/16 06:59 06:59 06:59 Intake Total 871 135 Output Total 2575 Balance -1704 135 Weight 104.3 kg General appearance: PRESENT: no acute distress, cooperative Head exam: PRESENT: normocephalic Eye exam: PRESENT: EOMI Mouth exam: PRESENT: moist, neck supple Neck exam: ABSENT: JVD Respiratory exam: PRESENT: crackles - ocassional, unlabored, other - Transmitted sounds on the trachea noted. ABSENT: stridor, wheezes Cardiovascular exam: PRESENT: RRR. ABSENT: gallop GI/Abdominal exam: PRESENT: hypoactive bowel sounds, soft. ABSENT: distended, tenderness Extremities exam: PRESENT: other - Trace edema Neurological exam: PRESENT: alert, awake, oriented to situation Skin exam: PRESENT: dry, warm. ABSENT: cyanosis Results Laboratory Results: 04/01/16 05:00 04/02/16 02:39 03/17/16 03/17/16 03/17/16 06:00 06:00 13:35 Creatine Kinase 101 91 CK-MB (CK-2) 5.84 H Troponin I 0.056 03/17/16 03/17/16 03/17/16 13:35 19:05 19:05 Creatine Kinase 65 CK-MB (CK-2) 4.99 H 3.77 Troponin I 0.041 0.036 04/02/16 04/02/16 02:39 02:39 Creatine Kinase 22 L CK-MB (CK-2) 2.16 Troponin I 0.052 Impressions: KUB X-Ray 03/24/16 18:30 IMPRESSION: NO RADIOGRAPHIC EVIDENCE FOR ACUTE ABDOMINAL DISEASE. STABLE POSITION WEIGHTED FEEDING TUBE. Gastrostomy Tube Placement 03/25/16 00:00 IMPRESSION: Please see combined report for performance of procedure and radiologic supervision and interpretation. Guidance Fluoroscopy 03/25/16 00:00 IMPRESSION: Dobhoff tube tip in the 3rd portion of the duodenum. Modified Barium Swallow 03/31/16 00:00 IMPRESSION: LARYNGEAL PENETRATION AND SUSPECTED ASPIRATION OF POST SWALLOW RESIDUALS FROM THE VALLECULAE. PLEASE SEE SPEECH PATHOLOGIST REPORT FOR OTHER FINDINGS AND RECOMMENDATIONS. Chest X-Ray 04/02/16 00:00 IMPRESSION: STABLE POSITION RIGHT IJ VENOUS CATHETER. CORRELATE WITH ACCURACY OF CLINICAL HISTORY. IMPROVING PULMONARY EDEMA. Transfer Plan - Disposition Transfer Plan: Transferred to subacute rehabilitation for physical therapy, weaning steroids, weaning oxygen. - Time Spent with Patient Time spent with patient: Less than 30 Minutes Qualifiers PATEINT BEING DISCHARGED WITH ANY OF THE FOLLOWING DIAGNOSIS?: Heart Failure HF Pt being discharged on ACEI for LVEF less than 40%?: Yes HF Pt being discharged on ARBS for LVEF less than 40%?: No Reason(s) for not prescribing ARBS:: Not indicated - On DARSHAN inhibitor HF Pt with Afib discharged with Warfarin?: No Reason(s) for not prescribing Warfarin:: Not indicated - On eliquis HF Pt discharged on evidence-based Beta Mike?: Yes Plan Discharge Plan: Follow-up with primary care physician in one week. The patient will also be followed by the physician at the facility. Cardiology appointment in 2 weeks. Time Spent: Less than 30 Minutes
[2016-04-03 12:29] VITALS: BP 127/80
== END 2016-04-03 19:03 | DRG 207 ==
LOC: ER 00:38 → UNDOADMIN 03:40 → EH 03:40 → 3N 03-25 03:45 → UNDODISIN 04-03 14:20
PROVIDERS: ADMIT Internal Medicine; ATTEND Internal Medicine
PROC: 5A1955Z Respiratory Ventilation, Greater than 96 Consecutive Hours (ICD-10-PCS; principal; 2016-03-17)
PROC: 02HV33Z Insertion of Infusion Device into Superior Vena Cava, Percutaneous Approach (ICD-10-PCS; 2016-03-17)
PROC: B548ZZA Ultrasonography of Superior Vena Cava, Guidance (ICD-10-PCS; 2016-03-17)
DX: J96.21 Acute and chronic respiratory failure with hypoxia (principal); I50.43 Acute on chronic combined systolic (congestive) and diastolic (congestive) heart failure; J69.0 Pneumonitis due to inhalation of food and vomit; J44.1 Chronic obstructive pulmonary disease with (acute) exacerbation; N17.9 Acute kidney failure, unspecified; I42.9 Cardiomyopathy, unspecified; Z68.41 Body mass index [BMI] 40.0-44.9, adult; I11.0 Hypertensive heart disease with heart failure; F41.9 Anxiety disorder, unspecified; D50.9 Iron deficiency anemia, unspecified; J96.22 Acute and chronic respiratory failure with hypercapnia; E11.22 Type 2 diabetes mellitus with diabetic chronic kidney disease; K21.9 Gastro-esophageal reflux disease without esophagitis; F17.200 Nicotine dependence, unspecified, uncomplicated; I25.10 Atherosclerotic heart disease of native coronary artery without angina pectoris; N40.0 Benign prostatic hyperplasia without lower urinary tract symptoms; E78.5 Hyperlipidemia, unspecified; E66.01 Morbid (severe) obesity due to excess calories; I95.9 Hypotension, unspecified; I48.2 Chronic atrial fibrillation; G40.909 Epilepsy, unspecified, not intractable, without status epilepticus; M19.90 Unspecified osteoarthritis, unspecified site; R79.1 Abnormal coagulation profile; Z82.49 Family history of ischemic heart disease and other diseases of the circulatory system; Z79.52 Long term (current) use of systemic steroids; Z79.82 Long term (current) use of aspirin; Z95.810 Presence of automatic (implantable) cardiac defibrillator; Z79.899 Other long term (current) drug therapy; Z79.02 Long term (current) use of antithrombotics/antiplatelets; Z88.8 Allergy status to other drugs, medicaments and biological substances
CPT/HCPCS: 36415; 36600; 44500; 71010; 74000; 74230; 74340; 80048; 80053; 80162; 80202; 80307; 81001; 82550; 82553; 82803; 83735; 83880; 84100; 84443; 84478; 84484; 85025; 85027; 85610; 87040; 87070; 87205; 93005; 93010; 94002; 94003; 94640; 94660; 96374; 99291; C1751; G8978-GP; G8979-GP; G8996-GN; G8997-GN; J1265; J1630; J1644; J1940; J1956; J2250; J2270; J2370; J2704; J2930; J2997; J3370; J3475; J3490; J7030; J7060; J7512; J7620

== ENCOUNTER 2016-04-08 01:21 | Inpatient (IN) | payer MEDICARE ==
[2016-04-08] MEDS ORDERED: IPRATROPIUM/ALBUTEROL 0.5-2.5 MG/3 ML AMPUL NEB ONE ×2 (01:29→01:30)
--- NOTE | 2016-04-08 01:35 | ER Document Report ---
ED Respiratory Problem - General Stated Complaint: DIFFICULTY BREATHING Notes: Patient is a 75-year-old male that comes emergency department from [facility] for chief complaint of shortness of breath that started tonight, EMS also reports that patient was noted to have a temperature that was elevated (reportedly 102 F) although they did not record a fever on arrival. Patient was 88% on 3 L nasal cannula. Patient has a history of COPD, dilated cardiomyopathy with EF of 25%, biventricular pacemaker, on digoxin, atrial fibrillation on Eliquis, type II diabetes. Patient has been intubated recently with an admission last month. Patient is a full code. TRAVEL OUTSIDE OF THE [place] IN LAST 30 DAYS: No - Related Data Allergies/Adverse Reactions: lorazepam [From Ativan] Adverse Reaction (Verified 05/22/15 20:52) Past Medical History - General Information source: Patient - Social History Smoking Status: Never Smoker Frequency of alcohol use: None Lives with: Fdc Family History: CAD, COPD - Past Medical History Cardiac Medical History: Reports: Hx Atrial Fibrillation, Hx Congestive Heart Failure, Hx Coronary Artery Disease, Hx Hypercholesterolemia, Hx Hypertension Denies: Hx Heart Attack, Hx Peripheral Vascular Disease, Hx Pulmonary Embolism, Hx Heart Murmur Pulmonary Medical History: Reports: Hx Bronchitis, Hx COPD - COPD, Hx Pneumonia Denies: Hx Asthma, Hx Respiratory Failure, Hx Sleep Apnea, Hx Tuberculosis Neurological Medical History: Reports: Hx Seizures - Last time 3 to 4 yrs ago. Denies: Hx Cerebrovascular Accident Endocrine Medical History: Reports: Hx Diabetes Mellitus Type 2 Renal/ Medical History: Reports: Hx Benign Prostatic Hyperplasia Malignancy Medical History: Denies Hx Lung Cancer GI Medical History: Reports: Hx Ulcer - age 30. Denies: Hx Crohn's Disease, Hx Gastroesophageal Reflux Disease, Hx Hiatal Hernia, Hx Irritable Bowel, Hx Liver Failure Musculoskeltal Medical History: Reports Hx Arthritis - All over, Denies Hx Fibromyalgia, Denies Hx Multiple Sclerosis, Denies Hx Muscular Dystrophy Psychiatric Medical History: Denies: Hx Bipolar Disorder, Hx Dementia, Hx Depression, Hx Post Traumatic Stress Disorder, Hx Schizophrenia Traumatic Medical History: Denies: Hx Fractures Infectious Medical History: Denies: Hx HIV Past Surgical History: Reports: Hx Adenoidectomy, Hx Cardiac Surgery - pacemaker defibulator, Hx Internal Defibrillator, Hx Orthopedic Surgery - right knee, left hip, Hx Pacemaker - See Pacemaker Checklist, Hx Tonsillectomy. Denies: Hx Appendectomy, Hx Bowel Surgery, Hx Cholecystectomy, Hx Colostomy, Hx Coronary Artery Bypass Graft, Hx Gastric Bypass Surgery, Hx Herniorrhaphy - Immunizations Hx Diphtheria, Pertussis, Tetanus Vaccination: No Hx Pneumococcal Vaccination: 11/22/14 Review of Systems - Review of Systems Constitutional: See HPI EENT: No symptoms reported Cardiovascular: See HPI Respiratory: See HPI Gastrointestinal: No symptoms reported Genitourinary: No symptoms reported Male Genitourinary: No symptoms reported Musculoskeletal: No symptoms reported Skin: No symptoms reported Hematologic/Lymphatic: No symptoms reported Neurological/Psychological: No symptoms reported Physical Exam - Vital signs Vitals: Temp 99.8 F 04/08/16 01:21 Interpretation: Normal - General General appearance: Alert, Anxious In distress: Mild - Patient with labored breathing but does not appear to be in severe distress - HEENT Head: Normocephalic, Atraumatic Eyes: Normal Conjunctiva: Normal Extraocular movements intact: Yes Eyelashes: Normal Pupils: PERRL Nasal: Normal Mouth/Lips: Normal Mucous membranes: Normal Pharynx: Normal Neck: Normal - Respiratory Respiratory status: Respiratory distress - Mild, Labored, Tachypnea Breath sounds: Decreased air movement, Rhonchi - Mild amount of rhonchi on the left, large amount of loud rhonchi on the right, Chest palpation: Normal - Cardiovascular Rhythm: Regular. No: Tachycardia Heart sounds: Normal auscultation, S1 appreciated, S2 appreciated - Abdominal Inspection: Normal Bowel sounds: Normal Tenderness: Nontender. No: Tender, Guarding - Back Back: Normal, Nontender - Extremities General upper extremity: Normal inspection, Nontender, Normal color, Normal ROM , Normal temperature General lower extremity: Other - Right lower extremity is larger than the left lower extremity with mild amount of pitting edema distal pulses and sensation intact - Neurological Neuro grossly intact: Yes Cognition: Normal Orientation: AAOx4. 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 Further data obtained, patient reportedly had a TMAX of 102.4 earlier yesterday , had a temperature of 100.4 and Tylenol was given at midnight. Patient is hypotensive, this is chronic according to his records. EKG shows ventricular paced rhythm, chest x-ray with no overt overload, pending read on the chest x-ray. Covering with cefepime because of fever, shortness of breath, bandemia, and rhonchi on lung exam consistent with pneumonia. Patient was evaluated by Dr. Valera at bedside. Blake placed, unfortunately patient had 2000 mL's of output, also some blood, difficult to pass past the prostate according to nurse. CBC shows bandemia of 9%, no leukocytosis, thrombocytopenia is not new. Chemistry had to be recycled, finally obtained, shows acute renal failure, I suspect this is post obstructive based on patient's urine output. Troponin is elevated, nonspecific with acute renal injury, previous troponin 0.056, patient denying any current symptoms. Patient states he feels improved after BiPAP, denies any current pain. Patient does have right lower extremity swollen compared to left, unsure if this is chronic, creatinine will not allow for a CTA at this time, patient is a already well anticoagulated with Eliquis according to his INR. 04/08/16 03:[address] Ferrell, internal medicine, patient will be admitted to the hospital. - Vital Signs Vital signs: Temp Pulse Resp BP Pulse Ox 98.9 F 16 106/55 L 96 04/08/16 03:46 04/08/16 03:46 04/08/16 03:46 04/08/16 03:46 - Laboratory Result Diagrams: 04/08/16 01:38 04/08/16 02:24 Laboratory results interpreted by me: 04/08/16 04/08/16 04/08/16 01:38 01:38 01:54 RDW 15.7 H Plt Count 127 L Seg Neuts % (Manual) 83 H Band Neutrophils % 9 H Lymphocytes % (Manual) 4 L Monocytes % (Manual) 2 L Abs Lymphs (Manual) 0.3 L PT 27.8 H Sodium BUN Creatinine Est GFR ( Amer) Est GFR (Non-Af Amer) Calcium Total Bilirubin Direct Bilirubin AST Creatine Kinase NT-Pro-B Natriuret Pep Total Protein Albumin Urine Blood MODERATE H 04/08/16 04/08/16 02:24 02:24 RDW Plt Count Seg Neuts % (Manual) Band Neutrophils % Lymphocytes % (Manual) Monocytes % (Manual) Abs Lymphs (Manual) PT Sodium 135.6 L BUN 58 H Creatinine 2.72 H Est GFR ( Amer) 28 L Est GFR (Non-Af Amer) 23 L Calcium 7.7 L Total Bilirubin 2.7 H Direct Bilirubin 0.4 H AST 12 L Creatine Kinase < 20 L NT-Pro-B Natriuret Pep 97644 H Total Protein 4.9 L Albumin 2.4 L Urine Blood Critical Care Note - Critical Care Note Total time excluding time spent on procedures (mins): 40 - respiratory distress , pneumonia, hypoxemia, acute renal insufficiency, post renal obstruction Comments: Please allow 40 minutes of critical care time for evaluation and treatment of patient with respiratory distress, hypoxemia, pneumonia, treatment with BiPAP therapy and antibiotics, treatment of postobstructive renal failure with Blake catheter insertion, consultation and admission to the hospital. Discharge - Discharge Clinical Impression: Hypoxia, Shortness of breath, Acute renal insufficiency Fever Qualifiers: Fever type: unspecified Qualified Code(s): R50.9 - Fever, unspecified Condition: Stable Disposition: ADMITTED INPATIENT Admitting Provider: Hospitalist - Dr. Ferrell Unit Admitted: [facility]
[2016-04-08] MEDS ORDERED: CEFEPIME 2 GM/D5W RTU 50 ML IV ONE (01:38)
[2016-04-08 01:58] LABS: VENOUS BLOOD BASE EXCESS 4.1 mmol/L; VENOUS BLOOD HCO3 29.7 mmol/L (20-32); VENOUS BLOOD PCO2 47.9 mmHg (35-63); VENOUS BLOOD PH 7.41 (7.30-7.42)
[2016-04-08 02:02] LABS: PROTHROMBIN TIME 27.8 SEC (11.4-15.4)
[2016-04-08] MEDS ORDERED: CEFEPIME INJ 2 GM VIAL ONE (02:08)
[2016-04-08 02:16] LABS: HEMATOCRIT 41.2 % (37.9-51.0); HEMOGLOBIN 13.7 g/dL (13.5-17.0); HGB HCT DIFFERENCE -0.1; MEAN CORPUSCULAR HEMOGLOBIN 29.4 pg (27.0-33.4); MEAN CORPUSCULAR HGB CONC 33.2 g/dL (32.0-36.0); MEAN CORPUSCULAR VOLUME 89 fl (80-97); RED BLOOD COUNT 4.65 10^6/uL (4.35-5.55); RED CELL DISTRIBUTION WIDTH 15.7 % (11.5-14.0); WHITE BLOOD COUNT 6.7 10^3/uL (4.0-10.5)
[2016-04-08 02:22] LABS: ANISOCYTOSIS SLIGHT; BAND NEUTROPHILS % (MANUAL) 9 % (3-5); BASOPHILS % (MANUAL) 0 % (0-2); BURR CELLS SLIGHT; EOSINOPHILS % (MANUAL) 1 % (0-6); LYMPHOCYTES % (MANUAL) 4 % (13-45); OVALOCYTES SLIGHT; PLATELET CLUMPS PRESENT; POIKILOCYTOSIS SLIGHT; TEAR DROP CELLS SLIGHT; TOTAL CELLS COUNTED 100; TOXIC GRANULATION SLIGHT
[2016-04-08] MEDS ORDERED: VANCOMYCIN HCL INJ 1000 MG VIAL IV ONE (02:31)
[2016-04-08 02:40] LABS: APPEARANCE,URINE CLEAR; BILIRUBIN,URINE NEGATIVE (NEGATIVE); GLUCOSE, URINE NEGATIVE (NEGATIVE); KETONES,URINE NEGATIVE (NEGATIVE); LEUKOCYTE ESTERASE,URINE NEGATIVE (NEGATIVE); NITRITE,URINE NEGATIVE (NEGATIVE); PROTEIN,URINE NEGATIVE (NEGATIVE); URINE SPECIFIC GRAVITY 1.011; UROBILINOGEN,URINE NEGATIVE mg/dL (<2.0)
[2016-04-08 02:50] LABS: ALANINE AMINOTRANSFERASE 32 U/L (21-72); ALBUMIN 2.4 g/dL (3.5-5.0); ALKALINE PHOSPHATASE 113 U/L (38-126); ANION GAP 10 (5-19); ASPARTATE AMINO TRANSFERASE 12 U/L (17-59); BILIRUBIN,DIRECT 0.4 mg/dL (0.0-0.3); BILIRUBIN,TOTAL 2.7 mg/dL (0.2-1.3); BLOOD UREA NITROGEN 58 mg/dL (7-20); CALCIUM 7.7 mg/dL (8.4-10.2); CARBON DIOXIDE 28 mmol/L (22-30); CHLORIDE 98 mmol/L (98-107); CREATININE RESULT 2.72 mg/dL (0.52-1.25); DIGOXIN 1.28 ng/mL (0.8-2.0); GLUCOSE 84 mg/dL (75-110); POTASSIUM 4.1 mmol/L (3.6-5.0); SODIUM 135.6 mmol/L (137-145); TOTAL PROTEIN 4.9 g/dL (6.3-8.2)
[2016-04-08 02:51] LABS: CREATINE KINASE < 20 U/L (55-170)
[2016-04-08 02:59] LABS: CREATINE KINASE MB 1.31 ng/mL (<4.55)
[2016-04-08 03:01] LABS: TROPONIN I 0.131 ng/mL
[2016-04-08] MEDS ORDERED: LACTULOSE SYRUP 20 GM/30 ML UDCUP PO PRN (03:28)
[2016-04-08] MEDS ORDERED: ACETAMINOPHEN 325 MG TABLET PO PRN (03:32)
[2016-04-08] MEDS: NORMAL SALINE 1000 ML 1,000 ML IV SCH ×2 (05:09→10:32)
--- NOTE | 2016-04-08 06:53 | PDOC H&P ---
History of Present Illness Admission Date/PCP: 04/08/16 03:32 KEDAR MACKENZIE Patient complains of: Shortness of breath with Altered mental status History of Present Illness: TUTU MURRAY is a 75 year old male with a complex past medical history of end-stage congestive heart failure, ejection fraction of 25% with pressor dependence to spite biventricular pacemaker, atrial fibrillation, COPD with persistent tobacco use recurrent encephalopathy, recurrent aspiration pneumonia. Who is a long-term resident and brought to the emergency room after staff finds him short of breath with a nonproductive cough. He is also encephalopathic unable to answer any questions. In the emergency room he is otherwise found to have acute renal failure he is placed on BiPAP and referred to the hospitalist for admission. Past Medical History Cardiac Medical History: Reports: Atrial Fibrillation, Congestive Heart Failure , Coronary Artery Disease, Hyperlipidema, Hypertension Denies: Myocardial Infarction, Peripheral Vascular Disease, Pulmonary Embolism, Heart Murmur Pulmonary Medical History: Reports: Bronchitis, Chronic Obstructive Pulmonary Disease (COPD) - COPD, Pneumonia Denies: Asthma, Respiratory Failure, Sleep Apnea, Tuberculosis Neurological Medical History: Reports: Seizures - Last time 3 to 4 yrs ago, Other - Encephalopathy Endocrine Medical History: Reports: Diabetes Mellitus Type 2 Renal/ Medical History: Malignancy Medical History: Denies: Lung Cancer GI Medical History: Denies: Crohn's Disease, Gastroesophageal Reflux Disease, Hiatal Hernia Musculoskeltal Medical History: Reports: Arthritis - All over Denies: Fibromyalgia Psychiatric Medical History: Reports: Tobacco Dependency, Other - Recurrent encephalopathy Denies: Bipolar Disorder, Dementia, Depression, Post Traumatic Stress Disorder Hematology: Denies: Anemia Infectious Medical History: Denies: HIV Past Surgical History Past Surgical History: Reports: Internal Defibrillator, Orthopedic Surgery - right knee, left hip, Pacemaker - See Pacemaker Checklist, Tonsillectomy Denies: Appendectomy, Cholecystectomy, Colostomy, Coronary Artery Bypass Graft, Gastric Bypass Surgery, Herniorrhaphy Social History Information Source: [facility] Records Lives with: Custodial Smoking Status: Former Smoker Frequency of Alcohol Use: None Hx Recreational Drug Use: No Drugs: None Hx Prescription Drug Abuse: No - Advance Directive Resuscitation Status: Do Not Resuscitate Family History Family History: CAD, COPD Parental Family History Reviewed: Yes - unable to provide given mental status Children Family History Reviewed: Yes Sibling(s) Family History Reviewed.: Yes Medication/Allergy Home Medications: Tamsulosin HCl [Flomax] 0.4 mg PO QPM 01/09/15 Ferrous Sulfate [Feosol 325 mg Tablet] 325 mg PO DAILY #30 tablet 01/13/15 Aspirin [Aspirin EC] 81 mg PO DAILY 05/12/15 Digoxin [Lanoxin 0.125 mg Tablet] 0.125 mg PO DAILY #30 tablet 06/02/15 Midodrine HCl [Proamatine 5 mg Tablet] 10 mg PO TID #90 tablet 06/02/15 Lisinopril [Prinivil 5 mg Tablet] 2.5 mg PO DAILY #60 tablet 06/04/15 Eplerenone [Inspra 25 mg Tablet] 25 mg PO BID 09/12/15 Apixaban [Eliquis 5 mg Tablet] 5 mg PO BID 03/17/16 Budesonide/Formoterol Fumarate [Symbicort HFA 80-4.5 mcg Inhaler 6.9 gm] 2 puff IH BID 03/17/16 Furosemide [Lasix] 60 mg PO QAM 03/17/16 Gabapentin [Neurontin 300 mg Capsule] 300 mg PO Q8 03/17/16 Metoprolol Succinate 12.5 mg PO DAILY 03/17/16 Docusate Sodium [Colace 100 mg Capsule] 100 mg PO BID capsule 04/03/16 Ipratropium/Albuterol Sulfate [Duoneb 3 ml Ampul] 3 ml [facility] RTQ6 vial.neb Lactulose [Cephulac Syrup 20 gm/30 ml Udcup] 20 gm PO Q6HP PRN udc 04/03/16 Lansoprazole [Prevacid 30 mg Odt Tablet] 30 mg NG BID@0600,1700 tab.rap. 12/08 Potassium Chloride [Klor-Con 10 Meq Tablet.sa] 20 meq PO DAILY #0 04/03/16 Prednisone [Deltasone 20 mg Tablet] 30 mg PO DAILY tablet 04/03/16 Allergies/Adverse Reactions: lorazepam [From Ativan] Adverse Reaction (Verified 05/22/15 20:52) Review of Systems ROS unobtainable: Due to mental status Physical Exam Vital Signs: Temp Pulse Resp BP Pulse Ox 98.8 F 17 103/60 97 04/08/16 05:16 04/08/16 05:16 04/08/16 05:16 04/08/16 05:16 General appearance: PRESENT: other - Chronically ill-appearing with temporal wasting, obtunded moving all 4 extremities with noxious stimuli Head exam: PRESENT: atraumatic, normocephalic Eye exam: PRESENT: conjunctiva pink, EOMI, PERRLA. ABSENT: scleral icterus Ear exam: PRESENT: normal external ear exam Mouth exam: PRESENT: moist, tongue midline Neck exam: ABSENT: carotid bruit, JVD, lymphadenopathy, thyromegaly Respiratory exam: PRESENT: accessory muscle use, crackles, decreased breath sounds, prolonged expiratory phas, rales, tachypnea. ABSENT: rhonchi Cardiovascular exam: PRESENT: RRR. ABSENT: diastolic murmur, rubs, systolic murmur Pulses: PRESENT: normal dorsalis pedis pul GI/Abdominal exam: PRESENT: normal bowel sounds, soft. ABSENT: distended, guarding, mass, organolmegaly, rebound, tenderness Rectal exam: PRESENT: deferred Extremities exam: PRESENT: +1 edema - Peripheral vascular disease with chronic skin changes lower extremity Musculoskeletal exam: ABSENT: ambulatory Neurological exam: PRESENT: other - Obtunded Skin exam: PRESENT: dry, intact, warm. ABSENT: cyanosis, rash Results Impressions: Chest X-Ray 04/08/16 01:24 IMPRESSION: Mild bibasilar atelectasis. Stable mild cardiomegaly. Emphysema. Assessment & Plan - Diagnosis (1) Acute on chronic combined systolic and diastolic CHF (congestive heart failure) Is this a current diagnosis for this admission?: YesPlan: Ejection fraction of only 25% despite biventricular pacemaker and pressor dependence with the midodrine 3 times a day, will evaluate digoxin level and continue supportive measures. (2) ARF (acute renal failure) Qualifiers: Acute renal failure type: unspecified Qualified Code(s): N17.9 - Acute kidney failure, unspecified Is this a current diagnosis for this admission?: YesPlan: Avoid nephrotoxic meds and doses consider gentle hydration though I believe the patient is an cardiorenal syndrome (3) Altered mental status Qualifiers: Altered mental status type: unspecified Qualified Code(s): R41.82 - Altered mental status, unspecified Is this a current diagnosis for this admission?: YesPlan: Patient is a history of recurrent delirium and suspected hypotension related hypoperfusion, there is no nystagmus there is no limb shaking he moves all 4 extremities with noxious stimuli. Workup is unremarkable, on previous admission patient had waxing and waning on a daily basis (4) Recurrent aspiration pneumonia Is this a current diagnosis for this admission?: YesPlan: Patient is of infiltrate in the right lower lobe and history of recurrent aspiration he will be nothing by mouth until mental status improves and consideration of hospice given end-stage comorbidities. - Time Time Spent: 30 to 50 Minutes
[2016-04-08] MEDS: IPRATROPIUM/ALBUTEROL 0.5-2.5 MG/3 ML AMPUL NEB SCH ×3 (07:45→20:21)
[2016-04-08] MEDS ORDERED: BUDESONIDE/FORMOTEROL 80-4.5 MCG 60 PUFF/6.9 GM MDI IH SCH (08:00)
[2016-04-08] MEDS ORDERED: CEFEPIME 2 GM/D5W RTU 50 ML IV SCH (10:00)
[2016-04-08] MEDS: BUDESONIDE/FORMOTEROL 80-4.5 MCG 60 PUFF/6.9 GM MDI IH SCH ×2 (10:51→17:35)
[2016-04-08] MEDS: MIDODRINE HCL 5 MG TABLET PO SCH ×3 (10:52→17:33)
[2016-04-08] MEDS: GUAIFENESIN 600 MG TABLET.SA PO SCH ×2 (10:53→22:28)
[2016-04-08] MEDS: PREDNISONE 10 MG TABLET PO SCH (10:53)
[2016-04-08] MEDS: DOCUSATE SODIUM 100 MG CAPSULE PO SCH ×2 (10:55→17:33)
[2016-04-08] MEDS: METOPROLOL SUCCINATE 25 MG TAB.SR.24H PO SCH (10:56)
[2016-04-08] MEDS: ASPIRIN 81 MG TABLET, ENT COATED PO SCH (10:57)
[2016-04-08] MEDS: APIXABAN 5 MG TABLET PO SCH ×2 (10:57→17:34)
[2016-04-08] MEDS: CEFEPIME HCL 2 GM in DEXTROSE 5%-WATER 50 ML IV SCH ×2 (10:59→22:29)
--- NOTE | 2016-04-08 11:12 | PDOC PROGRESS REPORT ---
Subjective Progress Note for:: 04/08/16 Subjective:: Patient is more alert and awake. He has a BiPAP on and he took it off and told me he feels much better and is no longer feeling short of breath as previously. Physical Exam Vital Signs: Temp Pulse Resp BP Pulse Ox 97.2 F 70 15 96/55 L 97 04/08/16 07:34 04/08/16 07:48 04/08/16 07:48 04/08/16 07:34 04/08/16 07:48 Intake & Output 04/07/16 04/08/16 04/09/16 06:59 06:59 06:59 Weight 96.6 kg General appearance: PRESENT: mild distress Eye exam: PRESENT: conjunctiva pink. ABSENT: scleral icterus Mouth exam: PRESENT: dry mucosa, tongue midline Neck exam: ABSENT: JVD Respiratory exam: PRESENT: rhonchi - Coarse rhonchi bilaterally.. ABSENT: rales , wheezes Cardiovascular exam: PRESENT: RRR. ABSENT: diastolic murmur, rubs, systolic murmur GI/Abdominal exam: PRESENT: normal bowel sounds, soft. ABSENT: distended, guarding, mass, organolmegaly, rebound, tenderness Extremities exam: PRESENT: pedal edema - Trace pedal edema.. ABSENT: calf tenderness, clubbing Neurological exam: PRESENT: alert, awake, oriented to person, oriented to place , oriented to time Psychiatric exam: PRESENT: appropriate affect Skin exam: PRESENT: other Results Impressions: Chest X-Ray 04/08/16 01:24 IMPRESSION: Mild bibasilar atelectasis. Stable mild cardiomegaly. Emphysema. Assessment & Plan - Diagnosis (1) Encephalopathy Is this a current diagnosis for this admission?: YesPlan: The patient is alert and oriented currently. The cause for his encephalopathy last night is not clear. It may have been related to hypoxia and now that he has used the BiPAP is much better. (2) ARF (acute renal failure) Qualifiers: Acute renal failure type: unspecified Qualified Code(s): N17.9 - Acute kidney failure, unspecified Is this a current diagnosis for this admission?: YesPlan: Patient has acute on chronic renal failure stage III. The patient was volume overloaded last night but appears to be euvolemic currently. We'll continue to monitor the creatinine closely. (3) Acute on chronic combined systolic and diastolic CHF (congestive heart failure) Is this a current diagnosis for this admission?: YesPlan: The patient's respiratory status has improved with the BiPAP. He has an ejection fraction of 25%. He has dry oral mucous membranes however he does appear to be euvolemic otherwise. (4) COPD exacerbation Is this a current diagnosis for this admission?: YesPlan: Patient is on prednisone and antibiotics were started last night. (6) Essential hypertension Is this a current diagnosis for this admission?: YesPlan: Blood pressure is under good control. (7) GERD (gastroesophageal reflux disease) Is this a current diagnosis for this admission?: YesPlan: Asymptomatic. - Time Time Spent with patient: 25-34 minutes - Inpatient Certification Medical Necessity: Need Close Monitoring Due to Risk of Patient Decompensation - Plan Summary Plan Summary: The patient wishes to be a DO NOT RESUSCITATE.
[2016-04-08] MEDS: TAMSULOSIN HCL 0.4 MG CAP.SR.24H PO SCH (17:33)
[2016-04-08] MEDS ORDERED: GLUCAGON,HUMAN RECOMB 1 MG INJ IM PRN (18:22)
[2016-04-08] MEDS ORDERED: DEXTROSE 40% GEL 15 GM TUBE PO PRN ×2 (18:22)
[2016-04-08] MEDS ORDERED: INSULIN REG, HUMAN 100 UNIT/ML 3 ML VIAL (PYX) SUBCUT PRN (18:22)
[2016-04-08] MEDS ORDERED: DEXTROSE 50%-WATER 25 GM/50 ML DISP.SYRIN IV PRN ×2 (18:22)
[2016-04-09] MEDS: IPRATROPIUM/ALBUTEROL 0.5-2.5 MG/3 ML AMPUL NEB SCH ×4 (01:51→19:45)
[2016-04-09 05:21] LABS: ABSOLUTE LYMPHOCYTES (AUTO) 0.3 10^3/uL (0.5-4.7); ABSOLUTE MONOCYTES (AUTO) 0.3 10^3/uL (0.1-1.4); ABSOLUTE NEUT (AUTO) 4.9 10^3/uL (1.7-8.2); BASOPHILS % (AUTO) 0.2 % (0-2); EOSINOPHILS % (AUTO) 0.4 % (0-6); HEMATOCRIT 40.4 % (37.9-51.0); HEMOGLOBIN 13.3 g/dL (13.5-17.0); HGB HCT DIFFERENCE -0.5; MEAN CORPUSCULAR VOLUME 88 fl (80-97); MONOCYTES % (AUTO) 6.1 % (3-13); RED CELL DISTRIBUTION WIDTH 15.6 % (11.5-14.0); SEGMENTED NEUTROPHILS % (AUTO) 87.3 % (42-78); WHITE BLOOD COUNT 5.6 10^3/uL (4.0-10.5)
[2016-04-09 05:36] LABS: ANION GAP 10 (5-19); BLOOD UREA NITROGEN 45 mg/dL (7-20); CALCIUM 8.2 mg/dL (8.4-10.2); CARBON DIOXIDE 29 mmol/L (22-30); CHLORIDE 97 mmol/L (98-107); CREATININE RESULT 1.55 mg/dL (0.52-1.25); GLUCOSE 121 mg/dL (75-110); POTASSIUM 4.1 mmol/L (3.6-5.0); SODIUM 135.9 mmol/L (137-145)
--- NOTE | 2016-04-09 11:16 | EKG REPORT ---
SEVERITY:- ABNORMAL ECG - VENTRICULAR-PACED RHYTHM : Confirmed by: Anabella Mueller 09-Apr-2016 11:14:45
[2016-04-09] MEDS: GUAIFENESIN 600 MG TABLET.SA PO SCH (11:32)
[2016-04-09] MEDS: METOPROLOL SUCCINATE 25 MG TAB.SR.24H PO SCH (11:32)
[2016-04-09] MEDS: CEFEPIME HCL 2 GM in DEXTROSE 5%-WATER 50 ML IV SCH (11:32)
[2016-04-09] MEDS: ASPIRIN 81 MG TABLET, ENT COATED PO SCH (11:32)
[2016-04-09] MEDS: PREDNISONE 10 MG TABLET PO SCH (11:33)
[2016-04-09] MEDS: MIDODRINE HCL 5 MG TABLET PO SCH ×3 (11:33→19:06)
[2016-04-09] MEDS: DOCUSATE SODIUM 100 MG CAPSULE PO SCH ×2 (11:33→19:06)
[2016-04-09] MEDS: BUDESONIDE/FORMOTEROL 80-4.5 MCG 60 PUFF/6.9 GM MDI IH SCH ×2 (11:34→19:06)
[2016-04-09] MEDS: APIXABAN 5 MG TABLET PO SCH ×2 (11:41→19:06)
[2016-04-09] MEDS: IPRATROPIUM/ALBUTEROL 0.5-2.5 MG/3 ML AMPUL NEB PRN ×2 (12:02→17:19)
--- NOTE | 2016-04-09 12:29 | PDOC TRANSFER SUMMARY ---
General - Admit/Disc Date/PCP Admission Date/Primary Care Provider: 04/08/16 03:32 KEDAR MACKENZIE MD Discharge Date: 04/09/16 - Discharge Diagnosis (1) Encephalopathy Is this a current diagnosis for this admission?: YesSummary: Most likely secondary to acute COPD exacerbation. His encephalopathy has resolved. (2) ARF (acute renal failure) Is this a current diagnosis for this admission?: Yes (3) Acute on chronic combined systolic and diastolic CHF (congestive heart failure) Is this a current diagnosis for this admission?: Yes (4) COPD exacerbation Is this a current diagnosis for this admission?: Yes (6) Essential hypertension Is this a current diagnosis for this admission?: Yes (7) GERD (gastroesophageal reflux disease) Is this a current diagnosis for this admission?: Yes - Additional Information Resuscitation Status: Do Not Resuscitate Discharge Diet: Cardiac Discharge Activity: Activity As Tolerated, Balance Activity w/Rest, Weigh Daily Home Medications: Tamsulosin HCl [Flomax] 0.4 mg PO QPM 01/09/15 Lisinopril [Prinivil 5 mg Tablet] 2.5 mg PO DAILY #60 tablet 06/04/15 Metoprolol Succinate 12.5 mg PO DAILY 03/17/16 Potassium Chloride [Klor-Con 10 Meq Tablet.sa] 20 meq PO DAILY #0 04/03/16 Apixaban [Eliquis 5 mg Tablet] 5 mg PO BID 04/08/16 Aspirin [Aspirin 81 mg Chewable Tablet] 81 mg PO DAILY 04/08/16 Budesonide/Formoterol Fumarate [Symbicort HFA 80-4.5 mcg Inhaler 6.9 gm] 2 puff IH BID 04/08/16 Digoxin [Lanoxin 0.125 mg Tablet] 0.125 mg PO DAILY 04/08/16 Docusate Sodium [Colace 100 mg Capsule] 100 mg PO BID 04/08/16 Eplerenone 25 mg PO BID 04/08/16 Ferrous Sulfate [Feosol 325 mg Tablet] 325 mg PO DAILY 04/08/16 Furosemide [Lasix] 60 mg PO QAM 04/08/16 Gabapentin [Neurontin 300 mg Capsule] 300 mg PO Q8 04/08/16 Ipratropium/Albuterol Sulfate [Duoneb 3 ml Ampul] 3 ml NEB RTQ6HP PRN 04/08/16 Lactulose [Cephulac Syrup 20 gm/30 ml Udcup] 30 ml PO TIDP PRN 04/08/16 Lansoprazole [Prevacid 30 mg Odt Tablet] 30 mg PO BID 04/08/16 Midodrine HCl 10 mg PO Q8 04/08/16 Cefuroxime Axetil [Ceftin 500 mg Tablet] 500 mg PO BID #10 tablet 04/09/16 Nystatin [Mycostatin Topical Powder 15 gm] 1 applic TP BID bottle 04/09/16 Prednisone [Deltasone 10 mg Tablet] 30 mg PO DAILY tablet 04/09/16 History of Present Illness Admission Date/PCP: 04/08/16 03:32 KEDAR MACKENZIE MD History of Present Illness: TTUU MURRAY is a 75 year old male with a complex past medical history of end-stage congestive heart failure, ejection fraction of 25% with pressor dependence to spite biventricular pacemaker, atrial fibrillation, COPD with persistent tobacco use recurrent encephalopathy, recurrent aspiration pneumonia. Who is a [facility] resident and brought to the emergency room after staff finds him short of breath with a nonproductive cough. He is also encephalopathic unable to answer any questions. In the emergency room he is otherwise found to have acute renal failure he is placed on BiPAP and referred to the hospitalist for admission. Hospital Course Hospital Course: 75 old gentleman with history of COPD who presented with altered mental status. Patient was put on BiPAP and had improvement in his respiratory status. He was started on antibiotics empirically. The patient within 24 hours was back to his normal self mentally. He was alert and oriented 4 and he had some cough but his respiratory status was back to its baseline. The patient was started on cefepime empirically and will be sent home on Ceftin to complete a total of 7 days of antibiotics. Patient had encephalopathy most likely secondary to his underlying COPD exacerbation. Patient will be sent home to continue with the prednisone taper. He is going back to [facility] to continue with rehabilitation until a strong enough to go home. During his hospitalization he was made a DO NOT RESUSCITATE. His agreed with this but the children presented and reportedly did not want him to be a DO NOT RESUSCITATE and he was made a full code. Family is aware of his poor prognosis however he has had cardiac arrest previously and survived it. Patient's other medical problems were unchanged during this hospitalization. Physical Exam Vital Signs: Temp Pulse Resp BP Pulse Ox 98.0 F 71 16 112/72 96 04/09/16 07:45 04/09/16 12:02 04/09/16 12:02 04/09/16 07:45 04/09/16 12:02 Intake & Output 04/08/16 04/09/16 04/10/16 06:59 06:59 06:59 Intake Total 992 Output Total 2775 Balance -1783 Weight 96.9 kg General appearance: PRESENT: no acute distress Eye exam: PRESENT: conjunctiva pink. ABSENT: scleral icterus Mouth exam: PRESENT: moist, tongue midline Neck exam: ABSENT: JVD Respiratory exam: PRESENT: wheezes - Few scattered expiratory wheezes. Cardiovascular exam: PRESENT: irregular rhythm. ABSENT: systolic murmur GI/Abdominal exam: PRESENT: normal bowel sounds, soft. ABSENT: distended, guarding, mass, organolmegaly, rebound, tenderness Extremities exam: ABSENT: calf tenderness, clubbing, pedal edema Neurological exam: PRESENT: alert, awake, oriented to person, oriented to place , oriented to time, oriented to situation Skin exam: PRESENT: other - Patient has some erythematous areas in his groin Results Laboratory Results: 04/09/16 04:51 04/09/16 04:51 04/09/16 04/09/16 04:51 04:51 WBC 5.6 RBC 4.60 Hgb 13.3 L Hct 40.4 MCV 88 MCH 29.0 MCHC 33.0 RDW 15.6 H Plt Count 105 L Seg Neutrophils % 87.3 H Lymphocytes % 6.0 L Monocytes % 6.1 Eosinophils % 0.4 Basophils % 0.2 Absolute Neutrophils 4.9 Absolute Lymphocytes 0.3 L Absolute Monocytes 0.3 Absolute Eosinophils 0.0 Absolute Basophils 0.0 Sodium 135.9 L Potassium 4.1 Chloride 97 L Carbon Dioxide 29 Anion Gap 10 BUN 45 H Creatinine 1.55 H Est GFR ( Amer) 53 L Est GFR (Non-Af Amer) 44 L Glucose 121 H Calcium 8.2 L Impressions: Chest X-Ray 04/08/16 01:24 IMPRESSION: Mild bibasilar atelectasis. Stable mild cardiomegaly. Emphysema. Transfer Plan - Disposition Transfer Plan: Patient will be transferred back to [facility] for continued rehabilitation with physical therapy. - Time Spent with Patient Time spent with patient: Greater than 30 Minutes Qualifiers PATEINT BEING DISCHARGED WITH ANY OF THE FOLLOWING DIAGNOSIS?: No Plan Discharge Plan: We'll transfer back to [facility] facility for rehabilitation. Time Spent: Greater than 30 Minutes
[2016-04-09 17:18] VITALS: BP 109/63
[2016-04-09] MEDS ORDERED: NYSTATIN TOPICAL POWDER 15 GM TP SCH (18:00)
[2016-04-09] MEDS: TAMSULOSIN HCL 0.4 MG CAP.SR.24H PO SCH (19:05)
== END 2016-04-09 20:15 | DRG 190 ==
LOC: ER 01:21 → EH 03:32 → 3W 06:15
PROVIDERS: ADMIT Internal Medicine; ATTEND Internal Medicine
DX: J44.1 Chronic obstructive pulmonary disease with (acute) exacerbation (principal); G93.40 Encephalopathy, unspecified; I50.43 Acute on chronic combined systolic (congestive) and diastolic (congestive) heart failure; N17.9 Acute kidney failure, unspecified; Z66 Do not resuscitate; I10 Essential (primary) hypertension; K21.9 Gastro-esophageal reflux disease without esophagitis; I48.2 Chronic atrial fibrillation; D69.6 Thrombocytopenia, unspecified; Z95.0 Presence of cardiac pacemaker; Z79.01 Long term (current) use of anticoagulants; Z79.82 Long term (current) use of aspirin; Z79.51 Long term (current) use of inhaled steroids; Z79.899 Other long term (current) drug therapy
CPT/HCPCS: 36415; 51702; 71010; 80048; 80053; 80162; 81001; 82550; 82553; 82803; 82962; 83605; 83880; 84484; 85025; 85610; 87040; 87070; 87077; 87086; 87186; 87205; 87804; 93005; 93010; 94640; 94660; 96374; 96375; 99291; J0692; J3370; J3490; J7030; J7512; J7620

== ENCOUNTER 2016-04-12 22:41 | Emergency (ER) | payer MEDICARE ==
[2016-04-12 23:39] LABS: ABSOLUTE LYMPHOCYTES (AUTO) 0.3 10^3/uL (0.5-4.7); ABSOLUTE MONOCYTES (AUTO) 0.3 10^3/uL (0.1-1.4); BASOPHILS % (AUTO) 0.3 % (0-2); EOSINOPHILS % (AUTO) 0.2 % (0-6); HEMATOCRIT 40.9 % (37.9-51.0); HEMOGLOBIN 13.5 g/dL (13.5-17.0); HGB HCT DIFFERENCE -0.4; LYMPHOCYTES % (AUTO) 6.9 % (13-45); MEAN CORPUSCULAR HGB CONC 33.1 g/dL (32.0-36.0); MEAN CORPUSCULAR VOLUME 88 fl (80-97); RED BLOOD COUNT 4.65 10^6/uL (4.35-5.55); RED CELL DISTRIBUTION WIDTH 15.9 % (11.5-14.0); SEGMENTED NEUTROPHILS % (AUTO) 86.6 % (42-78); WHITE BLOOD COUNT 4.6 10^3/uL (4.0-10.5)
[2016-04-12 23:51] LABS: ALANINE AMINOTRANSFERASE 24 U/L (21-72); ALBUMIN 3.1 g/dL (3.5-5.0); ALKALINE PHOSPHATASE 163 U/L (38-126); ANION GAP 10 (5-19); ASPARTATE AMINO TRANSFERASE 16 U/L (17-59); BILIRUBIN,TOTAL 1.5 mg/dL (0.2-1.3); BLOOD UREA NITROGEN 44 mg/dL (7-20); CALCIUM 8.5 mg/dL (8.4-10.2); CARBON DIOXIDE 32 mmol/L (22-30); CHLORIDE 98 mmol/L (98-107); CREATININE RESULT 1.34 mg/dL (0.52-1.25); GLUCOSE 140 mg/dL (75-110); POTASSIUM 3.8 mmol/L (3.6-5.0); SODIUM 139.5 mmol/L (137-145); TOTAL PROTEIN 5.5 g/dL (6.3-8.2)
[2016-04-12 23:57] LABS: CREATINE KINASE < 20 U/L (55-170)
[2016-04-13 00:03] LABS: CREATINE KINASE MB 1.89 ng/mL (<4.55)
[2016-04-13 00:10] LABS: TROPONIN I 0.039 ng/mL
[2016-04-13] MEDS ORDERED: METHYLPREDNISOLONE INJ 125 MG/2 ML SDV IV ONE (00:33)
[2016-04-13] MEDS ORDERED: IPRATROPIUM/ALBUTEROL 0.5-2.5 MG/3 ML AMPUL NEB ONE (00:33)
--- NOTE | 2016-04-13 00:35 | ER Document Report ---
ED General - General Chief Complaint: Breathing Difficulty Stated Complaint: BREATHING DIFFICULTY Notes: Patient is a 75-year-old male with a complex past medical history including COPD , CHF with an EF of 20%, status post pacemaker and AICD placement, has been mostly hospitalized for the months of February and March who presents with long-term concerns of loud breathing. Patient himself states that his breathing does not feel much worse then when he is discharged from the hospital. Nothing improves or worsens the symptoms. He does normally saturate between 93 and 95% on 3 L by nasal cannula at all times. He denies any chest pain, nausea, vomiting. No fever. TRAVEL OUTSIDE OF THE [place] IN LAST 30 DAYS: No - HPI Onset: Other - Chronic unchanged Onset/Duration: Constant Quality of pain: No pain Severity: None Pain Level: Denies Associated symptoms: None Exacerbated by: Denies Relieved by: Denies Similar symptoms previously: Yes Recently seen / treated by doctor: Yes - Related Data Allergies/Adverse Reactions: lorazepam [From Ativan] Adverse Reaction (Verified 05/22/15 20:52) Past Medical History - General Information source: Patient - Social History Smoking Status: Former Smoker Frequency of alcohol use: None Drug Abuse: None Lives with: Jail Family History: CAD, COPD - Past Medical History Cardiac Medical History: Reports: Hx Atrial Fibrillation, Hx Congestive Heart Failure, Hx Coronary Artery Disease, Hx Hypercholesterolemia, Hx Hypertension Denies: Hx Heart Attack, Hx Peripheral Vascular Disease, Hx Pulmonary Embolism, Hx Heart Murmur Pulmonary Medical History: Reports: Hx Bronchitis, Hx COPD - COPD, Hx Pneumonia Denies: Hx Asthma, Hx Respiratory Failure, Hx Sleep Apnea, Hx Tuberculosis Neurological Medical History: Reports: Hx Seizures - Last time 3 to 4 yrs ago. Denies: Hx Cerebrovascular Accident Endocrine Medical History: Reports: Hx Diabetes Mellitus Type 2 Renal/ Medical History: Reports: Hx Benign Prostatic Hyperplasia Malignancy Medical History: Denies Hx Lung Cancer GI Medical History: Reports: Hx Ulcer - age 30. Denies: Hx Crohn's Disease, Hx Gastroesophageal Reflux Disease, Hx Hiatal Hernia, Hx Irritable Bowel, Hx Liver Failure Musculoskeltal Medical History: Reports Hx Arthritis - All over, Denies Hx Fibromyalgia, Denies Hx Multiple Sclerosis, Denies Hx Muscular Dystrophy Psychiatric Medical History: Denies: Hx Bipolar Disorder, Hx Dementia, Hx Depression, Hx Post Traumatic Stress Disorder, Hx Schizophrenia Traumatic Medical History: Denies: Hx Fractures Infectious Medical History: Denies: Hx HIV Past Surgical History: Reports: Hx Adenoidectomy, Hx Cardiac Surgery - pacemaker defibulator, Hx Internal Defibrillator, Hx Orthopedic Surgery - right knee, left hip, Hx Pacemaker - See Pacemaker Checklist, Hx Tonsillectomy. Denies: Hx Appendectomy, Hx Bowel Surgery, Hx Cholecystectomy, Hx Colostomy, Hx Coronary Artery Bypass Graft, Hx Gastric Bypass Surgery, Hx Herniorrhaphy - Immunizations Hx Diphtheria, Pertussis, Tetanus Vaccination: Yes Hx Pneumococcal Vaccination: 11/22/14 Review of Systems - Review of Systems Notes: Constitutional: Negative for fever. HENT: Negative for sore throat. Eyes: Negative for visual changes. Cardiovascular: Negative for chest pain. Respiratory: Positive for shortness of breath. Gastrointestinal: Negative for abdominal pain, vomiting or diarrhea. Genitourinary: Negative for dysuria. Musculoskeletal: Negative for back pain. Skin: Negative for rash. Neurological: Negative for headaches, weakness or numbness. 10 point ROS negative except as marked above and in HPI. Physical Exam - Vital signs Vitals: Resp Pulse Ox 18 96 04/12/16 23:19 04/12/16 23:19 Interpretation: Normal Notes: PHYSICAL EXAMINATION: GENERAL: Chronically ill in appearance but in no acute distress HEAD: Atraumatic, normocephalic. EYES: Pupils equal round and reactive to light, extraocular movements intact, sclera anicteric, conjunctiva are normal. ENT: nares patent, oropharynx clear without exudates. Moderately dry mucous membranes. NECK: Normal range of motion, supple without lymphadenopathy LUNGS: Expiratory wheezing bilaterally but no respiratory distress. No retractions. HEART: Regular rate and rhythm without murmurs ABDOMEN: Soft, nontender, normoactive bowel sounds. No guarding, no rebound. No masses appreciated. EXTREMITIES: Right lower extremity has 1+ pitting edema to the mid thigh just chronic. Left lower extremities without edema NEUROLOGICAL: No focal neurological deficits. Moves all extremities spontaneously and on command. PSYCH: Normal mood, normal affect. SKIN: Warm, Dry, normal turgor, no rashes or lesions noted. Course - Re-evaluation Re-evalutation: 04/13/16 00:34 Patient presents with increased wheezing and loud respirations concerning to the facility staff members. At time of arrival has vitals all within normal limits, satting 95% on his normal is a nasal cannula which is where he was when he was discharged from the hospital recently. His proBNP is actually decreased from when he was hospitalized. Chest x-ray does not show any evidence of acute pulmonary edema. Likewise, his troponin is decreased from his most recent visit He does have chronic right lower extremity edema that is unchanged from noted prior exams on previous records. Patient has been started on nebulizer treatments and will be given a dose of steroids. I will try to prevent patient being readmitted to the hospital as he has been mostly hospitalized the last several months a worry that he is at increasing risk for hospital associated infections and complications and he overall does not appear that ill tonight. 04/13/16 02:10 Patient is saturating 95% on 3 L by nasal cannula. His lung sounds are improved after nebulizer treatments. He will be sent home on a course of steroids and continued on his home inability treatments. I believe the risks of hospitalizing the patient at this time our way the possible benefits and I believe his care can be appropriately managed by his long-term at this time. At this time will discharge with return precautions and follow-up recommendations. Verbal discharge instructions given a the bedside and opportunity for questions given. Medication warnings reviewed. Patient is in agreement with this plan and has verbalized understanding of return precautions and the need for primary care follow-up in the next 24-72 hours. - Vital Signs Vital signs: Temp Pulse Resp BP Pulse Ox 16 105/79 97 04/13/16 01:01 04/13/16 01:01 04/13/16 01:01 - Laboratory Result Diagrams: 04/12/16 23:25 04/12/16 23:25 Laboratory results interpreted by me: 04/12/16 04/12/16 04/12/16 23:25 23:25 23:25 RDW 15.9 H Plt Count 148 L Seg Neutrophils % 86.6 H Lymphocytes % 6.9 L Absolute Lymphocytes 0.3 L Carbon Dioxide 32 H BUN 44 H Creatinine 1.34 H Est GFR (Non-Af Amer) 52 L Glucose 140 H Total Bilirubin 1.5 H AST 16 L Alkaline Phosphatase 163 H Creatine Kinase < 20 L NT-Pro-B Natriuret Pep 13899 H Total Protein 5.5 L Albumin 3.1 L - Diagnostic Test Radiology reviewed: Image reviewed, Reports reviewed Radiology results interpreted by me: 04/13/16 02:11 Chest x-ray: No overt pulmonary edema Discharge - Discharge Clinical Impression: COPD exacerbation Condition: Fair Disposition: HOME-SNF (ED ONLY) Additional Instructions: You were seen for a COPD exacerbation. Your symptoms improved with treatment here in the emergency department. However, it is very important that you return to the emergency department immediately if you began to have worsening difficulty breathing that does not respond to your normal home nebulizers. You are also being sent home on a five-day course of steroids that you should start taking tomorrow. You should return to emergency department if you develop fever greater than 101, persistent cough, persistent vomiting, pass out, or any other symptoms that are concerning to you. Prescriptions: Prednisone [Deltasone 20 mg Tablet] 3 tab PO DAILY 5 Days Referrals: KEDAR MACKENZIE MD [Primary Care Provider] - Follow up in 3-5 days
[2016-04-13 01:27] LABS: VENOUS BLOOD BASE EXCESS 4.9 mmol/L; VENOUS BLOOD HCO3 30.9 mmol/L (20-32); VENOUS BLOOD PCO2 50.8 mmHg (35-63); VENOUS BLOOD PH 7.4 (7.30-7.42)
[2016-04-13 02:28] VITALS: BP 113/68
== END 2016-04-13 02:45 ==
LOC: ER 22:41
DX: J44.1 Chronic obstructive pulmonary disease with (acute) exacerbation (principal); R06.02 Shortness of breath; R60.0 Localized edema; I48.91 Unspecified atrial fibrillation; I25.10 Atherosclerotic heart disease of native coronary artery without angina pectoris; I10 Essential (primary) hypertension; E11.9 Type 2 diabetes mellitus without complications; Z87.01 Personal history of pneumonia (recurrent); Z95.810 Presence of automatic (implantable) cardiac defibrillator
CPT/HCPCS: 94640; 99285; 96374; 36415; 82553; 82550; 85025; 80053; 84484; 82803; 83880; 71010; J2930; A9270; J7620

== ENCOUNTER 2016-05-15 06:57 | Inpatient (IN) | payer MEDICARE ==
[2016-05-15] MEDS ORDERED: NORMAL SALINE 1000 ML 1,000 ML IV ONE (07:09)
--- NOTE | 2016-05-15 07:26 | ER Document Report ---
ED Respiratory Problem - General Chief Complaint: Fever Stated Complaint: FEVER Notes: The patient is a 75-year-old male, past medical history CHF (EF 20%), COPD, presents from [facility] after he had a temperature of 104.8, wheezing and hypotension 80/50. He was given 650 mg Tylenol, a DuoNeb and 150 mL normal saline by EMS. The patient will open his eyes to voice, but is unable provide any additional history. TRAVEL OUTSIDE OF THE [place] IN LAST 30 DAYS: No - Related Data Allergies/Adverse Reactions: lorazepam [From Ativan] Adverse Reaction (Verified 05/22/15 20:52) Past Medical History - General Information source: Emergency Med Personnel Cannot obtain history due to: Altered mental status - Social History Smoking Status: Unknown if Ever Smoked Family History: CAD, COPD - Past Medical History Cardiac Medical History: Reports: Hx Atrial Fibrillation, Hx Congestive Heart Failure, Hx Coronary Artery Disease, Hx Hypercholesterolemia, Hx Hypertension Denies: Hx Heart Attack, Hx Peripheral Vascular Disease, Hx Pulmonary Embolism, Hx Heart Murmur Pulmonary Medical History: Reports: Hx Bronchitis, Hx COPD - COPD, Hx Pneumonia Denies: Hx Asthma, Hx Respiratory Failure, Hx Sleep Apnea, Hx Tuberculosis Neurological Medical History: Reports: Hx Seizures - Last time 3 to 4 yrs ago. Denies: Hx Cerebrovascular Accident Endocrine Medical History: Reports: Hx Diabetes Mellitus Type 2 Renal/ Medical History: Reports: Hx Benign Prostatic Hyperplasia Malignancy Medical History: Denies Hx Lung Cancer GI Medical History: Reports: Hx Ulcer - age 30. Denies: Hx Crohn's Disease, Hx Gastroesophageal Reflux Disease, Hx Hiatal Hernia, Hx Irritable Bowel, Hx Liver Failure Musculoskeltal Medical History: Reports Hx Arthritis - All over, Denies Hx Fibromyalgia, Denies Hx Multiple Sclerosis, Denies Hx Muscular Dystrophy Psychiatric Medical History: Denies: Hx Bipolar Disorder, Hx Dementia, Hx Depression, Hx Post Traumatic Stress Disorder, Hx Schizophrenia Traumatic Medical History: Denies: Hx Fractures Infectious Medical History: Denies: Hx HIV Past Surgical History: Reports: Hx Adenoidectomy, Hx Cardiac Surgery - pacemaker defibulator, Hx Internal Defibrillator, Hx Orthopedic Surgery - right knee, left hip, Hx Pacemaker - See Pacemaker Checklist, Hx Tonsillectomy. Denies: Hx Appendectomy, Hx Bowel Surgery, Hx Cholecystectomy, Hx Colostomy, Hx Coronary Artery Bypass Graft, Hx Gastric Bypass Surgery, Hx Herniorrhaphy - Immunizations Hx Diphtheria, Pertussis, Tetanus Vaccination: Yes Hx Pneumococcal Vaccination: 11/22/14 Review of Systems - Review of Systems -: Yes ROS unobtainable due to patient's medical condition Physical Exam - Vital signs Vitals: Resp 24 H 05/15/16 07:08 - Notes Notes: PHYSICAL EXAMINATION: GENERAL: Ill-appearing HEAD: Atraumatic, normocephalic. EYES: Pupils equal round and reactive to light, extraocular movements intact, sclera anicteric, conjunctiva are normal. ENT: nares patent, oropharynx clear without exudates. Moist mucous membranes. NECK: Normal range of motion, supple without lymphadenopathy LUNGS: Tachypneic, bilateral coarse breath sounds and wheezing. HEART: Regular rate and rhythm without murmurs ABDOMEN: Soft, nontender, normoactive bowel sounds. No guarding, no rebound. No masses appreciated. EXTREMITIES: Normal range of motion, no pitting or edema. No cyanosis. NEUROLOGICAL: Awakens to voice and moves all 4 extremities SKIN: Skin tear over right forearm Course - Re-evaluation Re-evalutation: Patient more interactive after being placed on BiPAP. His blood pressure improved to 98/65 with a map of 78. Patient has productive cough, crackles, leukocytosis and fever. X-ray shows vascular congestion, but no focal infiltrate. Patient clinically has a pneumonia and will cover with broad- spectrum antibiotics due to recent hospitalizations. Patient's primary care physician is Dr. Sibley, but he is a resident of [facility]. Patient requires admission 05/15/16 11:[address] Chandler and he has accepted patient. - Vital Signs Vital signs: Temp Pulse Resp BP Pulse Ox 22 H 98/55 L 99 05/15/16 07:49 05/15/16 07:49 05/15/16 07:49 - Laboratory Result Diagrams: 05/15/16 07:08 05/15/16 07:08 Laboratory results interpreted by me: 05/15/16 05/15/16 05/15/16 07:08 07:08 07:08 WBC 12.4 H RBC 3.42 L Hgb 9.7 L Hct 29.1 L RDW 17.8 H Seg Neuts % (Manual) 91 H Band Neutrophils % 1 L Lymphocytes % (Manual) 1 L Abs Neuts (Manual) 11.4 H Abs Lymphs (Manual) 0.1 L PT 20.1 H VBG HCO3 Sodium 133.0 L Chloride 85 L Carbon Dioxide 37 H BUN 61 H Creatinine 1.53 H Est GFR ( Amer) 54 L Est GFR (Non-Af Amer) 45 L Direct Bilirubin 0.8 H Alkaline Phosphatase 210 H Total Protein 6.0 L Albumin 3.0 L 05/15/16 07:08 WBC RBC Hgb Hct RDW Seg Neuts % (Manual) Band Neutrophils % Lymphocytes % (Manual) Abs Neuts (Manual) Abs Lymphs (Manual) PT VBG HCO3 34.7 H Sodium Chloride Carbon Dioxide BUN Creatinine Est GFR ( Amer) Est GFR (Non-Af Amer) Direct Bilirubin Alkaline Phosphatase Total Protein Albumin - Diagnostic Test Radiology reviewed: Image reviewed, Reports reviewed - EKG Interpretation by Mn Rhythm: Other - Ventricular-paced rhythm Discharge - Discharge Clinical Impression: Hypoxia Pneumonia Qualifiers: Pneumonia type: due to unspecified organism Laterality: unspecified laterality Lung location: lower lobe of lung Qualified Code(s): J18.1 - Lobar pneumonia, unspecified organism Condition: Serious Disposition: ADMITTED INPATIENT [facility] Referrals: KEDAR MACKENZIE MD [Primary Care Provider] - Follow up as needed
[2016-05-15 07:27] LABS: VENOUS BLOOD BASE EXCESS 7.8 mmol/L; VENOUS BLOOD HCO3 34.7 mmol/L (20-32); VENOUS BLOOD PCO2 61.7 mmHg (35-63); VENOUS BLOOD PH 7.37 (7.30-7.42)
[2016-05-15] MEDS ORDERED: IPRATROPIUM/ALBUTEROL 0.5-2.5 MG/3 ML AMPUL NEB ONE (07:27)
[2016-05-15 07:32] LABS: HEMATOCRIT 29.1 % (37.9-51.0); HEMOGLOBIN 9.7 g/dL (13.5-17.0); MEAN CORPUSCULAR HEMOGLOBIN 28.3 pg (27.0-33.4); MEAN CORPUSCULAR HGB CONC 33.3 g/dL (32.0-36.0); MEAN CORPUSCULAR VOLUME 85 fl (80-97); RED BLOOD COUNT 3.42 10^6/uL (4.35-5.55); RED CELL DISTRIBUTION WIDTH 17.8 % (11.5-14.0); WHITE BLOOD COUNT 12.4 10^3/uL (4.0-10.5)
[2016-05-15 07:40] LABS: PROTHROMBIN TIME 20.1 SEC (11.4-15.4)
[2016-05-15 07:44] LABS: ALANINE AMINOTRANSFERASE 28 U/L (21-72); ALKALINE PHOSPHATASE 210 U/L (38-126); ANION GAP 11 (5-19); ASPARTATE AMINO TRANSFERASE 18 U/L (17-59); BILIRUBIN,DIRECT 0.8 mg/dL (0.0-0.4); BILIRUBIN,TOTAL 1.3 mg/dL (0.2-1.3); BLOOD UREA NITROGEN 61 mg/dL (7-20); CALCIUM 8.5 mg/dL (8.4-10.2); CARBON DIOXIDE 37 mmol/L (22-30); CHLORIDE 85 mmol/L (98-107); CREATININE RESULT 1.53 mg/dL (0.52-1.25); GLUCOSE 75 mg/dL (75-110); POTASSIUM 4.8 mmol/L (3.6-5.0)
[2016-05-15 08:07] LABS: BAND NEUTROPHILS % (MANUAL) 1 % (3-5); BASOPHILS % (MANUAL) 0 % (0-2); EOSINOPHILS % (MANUAL) 0 % (0-6); LYMPHOCYTES % (MANUAL) 1 % (13-45); TOTAL CELLS COUNTED 100; TOXIC GRANULATION 1+
[2016-05-15 08:08] LABS: ANISOCYTOSIS 2+; OVALOCYTES 1+; POIKILOCYTOSIS 1+; POLYCHROMASIA SLIGHT
[2016-05-15] MEDS ORDERED: VANCOMYCIN HCL INJ 1000 MG VIAL IV ONE (09:42)
[2016-05-15] MEDS ORDERED: LEVOFLOXACIN 750 MG/D5W RTU 150 ML IV ONE (09:42)
[2016-05-15] MEDS ORDERED: PIPERACILLIN/TAZOBACTAM 3.375 GM VIAL IV ONE (09:42)
[2016-05-15] MEDS ORDERED: NORMAL SALINE 1000 ML 500 ML IV ONE (10:35)
[2016-05-15] MEDS ORDERED: VANCOMYCIN HCL INJ 1000 MG VIAL ONE (13:03)
[2016-05-15] MEDS ORDERED: VANCOMYCIN HCL INJ 500 MG VIAL ONE (13:04)
[2016-05-15] MEDS ORDERED: 1/2 NORMAL SALINE 1,000 ML IV PRN (13:59)
[2016-05-15] MEDS ORDERED: ONDANSETRON HCL INJ/PF 4 MG/2 ML SDV IV PRN (13:59)
--- NOTE | 2016-05-15 14:27 | PDOC H&P ---
History of Present Illness Admission Date/PCP: 05/15/16 12:59 KEDAR MACKENZIE MD Patient complains of: Fever History of Present Illness: TUTU MURRAY is a 75 year old male, history of COPD, systolic heart failure with ejection fraction of 25%, was brought to the emergency room because of fever, associated chest congestion, and questionable seizure activity. The patient was found to be hypoxic as well, reportedly with O2 saturation in the 80s. In the emergency room he was placed on BiPAP, chest x-ray revealed infiltrates bilaterally, WBC mildly elevated. Patient reportedly with some wheezing and chest congestion possible pneumonia and therefore broad-spectrum antibiotics were begun. He was likewise hypotensive and therefore boluses of fluids were given. Patient was then referred for admission. When the patient was evaluated patient reports that he is not sick. He denies being short of breath, having fever or cough, nor any chest congestion. Likewise he denies having any chest pain at all. There is no diarrhea, no dysuria urgency or frequency. He has chronic constipation, as well as BPH. He is a poor historian and therefore reliability is in question. Information obtained from prior records and emergency room transfer form. Past Medical History Cardiac Medical History: Reports: Atrial Fibrillation, Congestive Heart Failure , Coronary Artery Disease, Hyperlipidema, Hypertension Denies: Myocardial Infarction, Peripheral Vascular Disease, Pulmonary Embolism, Heart Murmur Pulmonary Medical History: Reports: Bronchitis, Chronic Obstructive Pulmonary Disease (COPD) - COPD, Pneumonia Denies: Asthma, Respiratory Failure, Sleep Apnea, Tuberculosis Neurological Medical History: Reports: Seizures - Last time 3 to 4 yrs ago Endocrine Medical History: Reports: Diabetes Mellitus Type 2 Renal/ Medical History: Reports: Other - BPH Malignancy Medical History: Denies: Lung Cancer GI Medical History: Denies: Crohn's Disease, Gastroesophageal Reflux Disease, Hiatal Hernia Musculoskeltal Medical History: Reports: Arthritis - All over Denies: Fibromyalgia Psychiatric Medical History: Denies: Bipolar Disorder, Dementia, Depression, Post Traumatic Stress Disorder Hematology: Reports: Anemia Infectious Medical History: Denies: HIV Past Surgical History Past Surgical History: Reports: Internal Defibrillator, Orthopedic Surgery - right knee, left hip, Pacemaker - See Pacemaker Checklist, Tonsillectomy Denies: Appendectomy, Cholecystectomy, Colostomy, Coronary Artery Bypass Graft, Gastric Bypass Surgery, Herniorrhaphy Social History Information Source: Patient Smoking Status: Former Smoker Frequency of Alcohol Use: None Hx Recreational Drug Use: No Drugs: None Hx Prescription Drug Abuse: No Family History Family History: CAD, COPD Parental Family History Reviewed: Yes Children Family History Reviewed: Yes Sibling(s) Family History Reviewed.: Yes Medication/Allergy Home Medications: Apixaban [Eliquis 5 mg Tablet] 5 mg PO BID 05/15/16 Aspirin [Aspirin 81 mg Chewable Tablet] 81 mg PO DAILY 05/15/16 Budesonide/Formoterol Fumarate [Symbicort HFA 80-4.5 mcg Inhaler 6.9 gm] 2 puff IH BID 05/15/16 Digoxin [Lanoxin 0.125 mg Tablet] 0.125 mg PO DAILY 05/15/16 Docusate Sodium [Colace 100 mg Capsule] 100 mg PO BID 05/15/16 Eplerenone [Inspra 25 mg Tablet] 25 mg PO BID 05/15/16 Ferrous Sulfate [Iron] 325 mg PO DAILY 05/15/16 Furosemide [Lasix] 60 mg PO QAM 05/15/16 Gabapentin [Neurontin 300 mg Capsule] 300 mg PO Q8 05/15/16 Ipratropium/Albuterol Sulfate [Duoneb 3 ml Ampul] 1 vial NEB Q6 05/15/16 Lactulose [Constulose 10 gm/15 mL Oral Solution] 20 mg PO TID 05/15/16 Lisinopril [Prinivil 2.5 mg Tablet] 2.5 mg PO DAILY 05/15/16 Metoprolol Tartrate [Lopressor 25 mg Tablet] 12.5 mg PO DAILY 05/15/16 Midodrine HCl 10 mg PO TID 05/15/16 Nystatin [Mycostatin Topical Powder 15 gm] 1 applic TOP BID 05/15/16 Omeprazole 20 mg PO BID 05/15/16 Potassium Chloride [Klor-Con 10 Meq Tablet.sa] 20 meq PO DAILY 05/15/16 Prednisone [Deltasone 10 mg Tablet] 30 mg PO DAILY 05/15/16 Tamsulosin HCl [Flomax 0.4 mg Cap.sr] 0.4 mg PO QPM 05/15/16 Allergies/Adverse Reactions: lorazepam [From Ativan] Adverse Reaction (Verified 05/22/15 20:52) Review of Systems ROS unobtainable: Other - He denies any complaints at all as stated patient's reliability is of questionable, according to the staff there is no repeated seizure, there is some chills and rigors but not seizure, patient has no decubitus ulcer but has a skin tear on the left elbow. Constitutional: ABSENT: chills, fever(s), headache(s), weight gain, weight loss Eyes: ABSENT: visual disturbances Ears: ABSENT: hearing changes Nose, Mouth, and Throat: ABSENT: mouth pain, sore throat Cardiovascular: ABSENT: chest pain, dyspnea on exertion, edema, orthropnea, palpitations Respiratory: ABSENT: cough, hemoptysis Gastrointestinal: ABSENT: abdominal pain, constipation, diarrhea, hematemesis, hematochezia, nausea, vomiting Genitourinary: ABSENT: dysuria, hematuria Musculoskeletal: ABSENT: joint swelling Integumentary: ABSENT: rash, wounds Neurological: ABSENT: abnormal gait, abnormal speech, confusion, dizziness, focal weakness, syncope Psychiatric: ABSENT: anxiety, depression, homidical ideation, suicidal ideation Endocrine: ABSENT: cold intolerance, heat intolerance, polydipsia, polyuria Hematologic/Lymphatic: ABSENT: easy bleeding, easy bruising Physical Exam Vital Signs: Temp Pulse Resp BP Pulse Ox 22 H 98/55 L 97 05/15/16 10:25 05/15/16 07:49 05/15/16 10:25 General appearance: PRESENT: no acute distress, obese, other - On BiPAP Head exam: PRESENT: atraumatic, normocephalic Eye exam: PRESENT: conjunctiva pink, EOMI, PERRLA - Sluggish. ABSENT: scleral icterus Ear exam: PRESENT: normal external ear exam. ABSENT: drainage Mouth exam: PRESENT: moist, neck supple, tongue midline Throat exam: ABSENT: post pharyngeal erythema, tonsillar erythema Neck exam: ABSENT: carotid bruit, JVD, lymphadenopathy, thyromegaly Respiratory exam: PRESENT: decreased breath sounds - Anteriorly bilateral, rales - Lower lung [place] posteriorly, rhonchi - few bilateral, wheezes - Mild bilateral Cardiovascular exam: PRESENT: irregular rhythm, +S1, +S2. ABSENT: diastolic murmur, gallop, rubs, systolic murmur Pulses: PRESENT: normal dorsalis pedis pul Vascular exam: PRESENT: normal capillary refill GI/Abdominal exam: PRESENT: hypoactive bowel sounds, soft, other - Fullness to percussion. ABSENT: distended, guarding, mass, organolmegaly, rebound, tenderness Rectal exam: PRESENT: deferred Extremities exam: PRESENT: full ROM, other - Trace to +1 edema bilateral. ABSENT: calf tenderness, clubbing Neurological exam: PRESENT: alert, awake, oriented to situation Psychiatric exam: PRESENT: appropriate affect, normal mood. ABSENT: homicidal ideation, suicidal ideation Skin exam: PRESENT: dry, warm, other - Skin there are no left elbow with dry blood on dressing, multiple ecchymosis bilateral upper extremity more on the left. ABSENT: cyanosis, rash Results Impressions: Chest X-Ray 05/15/16 07:09 IMPRESSION: CARDIAC ENLARGEMENT. VASCULAR CONGESTION. Assessment & Plan - Diagnosis (1) Acute hypoxemic respiratory failure Is this a current diagnosis for this admission?: Yes (2) Acute on chronic combined systolic and diastolic CHF (congestive heart failure) Is this a current diagnosis for this admission?: Yes (3) COPD exacerbation Is this a current diagnosis for this admission?: Yes (4) Fever Qualifiers: Fever type: unspecified Qualified Code(s): R50.9 - Fever, unspecified Is this a current diagnosis for this admission?: Yes (5) Hypotension Qualifiers: Hypotension type: unspecified hypotension type Qualified Code(s): I95.9 - Hypotension, unspecified Is this a current diagnosis for this admission?: Yes (6) Coagulopathy Is this a current diagnosis for this admission?: Yes (7) Anemia of chronic disease Is this a current diagnosis for this admission?: Yes (8) Chronic kidney disease, stage 3 Is this a current diagnosis for this admission?: Yes (9) BPH (benign prostatic hyperplasia) Qualifiers: Prostatic enlargement morphology: unspecified morphology Lower urinary tract symptom presence: presence of symptoms unspecified Qualified Code(s ): N40.0 - Benign prostatic hyperplasia without lower urinary tract symptoms Is this a current diagnosis for this admission?: Yes (10) Cardiomyopathy Qualifiers: Cardiomyopathy type: unspecified Qualified Code(s): I42.9 - Cardiomyopathy, unspecified Is this a current diagnosis for this admission?: Yes (11) Coronary artery disease Qualifiers: Coronary Disease-Associated Artery/Lesion type: [place] artery [place] vs. transplanted heart: [place] heart Associated angina: angina presence unspecified Qualified Code(s): I25.10 - Atherosclerotic heart disease of [place] coronary artery without angina pectoris Is this a current diagnosis for this admission?: Yes (12) Essential hypertension Is this a current diagnosis for this admission?: Yes (13) GERD (gastroesophageal reflux disease) Qualifiers: Esophagitis presence: without esophagitis Qualified Code(s): K21.9 - Gastro-esophageal reflux disease without esophagitis Is this a current diagnosis for this admission?: Yes (14) Seizure disorder Is this a current diagnosis for this admission?: Yes (15) Afib Qualifiers: Atrial fibrillation type: chronic Qualified Code(s): I48.2 - Chronic atrial fibrillation Is this a current diagnosis for this admission?: Yes (16) Diabetes mellitus type 2 in obese Is this a current diagnosis for this admission?: Yes (17) Morbid obesity with BMI of 40.0-44.9, adult Is this a current diagnosis for this admission?: Yes (18) Hyperlipidemia Qualifiers: Hyperlipidemia type: unspecified Qualified Code(s): E78.5 - Hyperlipidemia, unspecified Is this a current diagnosis for this admission?: Yes - Time Time Spent: 50 to 70 Minutes - Plan Summary Plan Summary: The patient will be admitted to the IMCU. We will continue the BiPAP and wean per respiratory protocol. I will begin the patient on intravenous Lasix, nebulizers around the clock, and intravenous steroids. I will culture the patient's sputum and blood and urine, empiric antibiotic with Levaquin. Patient will have chronic hypotension secondary to low ejection fraction, I will hold his DARSHAN inhibitor per now but continue the low-dose metoprolol. I will obtain a digoxin level. In the meantime I will continue the patient's anticoagulant. I will continue the patient's midodrine. We will monitor hemoglobin and hematocrit and check stool for occult blood. If it continues to trend down, may need transfusion. Continue supportive care.
[2016-05-15] MEDS ORDERED: FUROSEMIDE INJ/PF 40 MG/4 ML SDV IV ONE (15:00)
[2016-05-15 15:23] LABS: THYROID STIMULATING HORMONE 1.41 uIU/mL (0.47-4.68)
[2016-05-15] MEDS ORDERED: BISACODYL 10 MG SUPP.RECT PR ONE (17:16)
[2016-05-15] MEDS: TAMSULOSIN HCL 0.4 MG CAP.SR.24H PO SCH (18:00)
[2016-05-15] MEDS: EPLERENONE 25 MG TABLET PO SCH (18:00)
[2016-05-15] MEDS ORDERED: APIXABAN 5 MG TABLET PO SCH (18:00)
[2016-05-15] MEDS: DOCUSATE SODIUM 100 MG CAPSULE PO SCH (18:00)
[2016-05-15] MEDS: MIDODRINE HCL 5 MG TABLET PO SCH (18:00)
[2016-05-15] MEDS: LACTULOSE SYRUP 20 GM/30 ML UDCUP PO SCH (18:00)
[2016-05-15] MEDS: GABAPENTIN 300 MG CAPSULE PO SCH ×2 (18:00→22:55)
[2016-05-15] MEDS: BUDESONIDE/FORMOTEROL 80-4.5 MCG 60 PUFF/6.9 GM MDI IH SCH (18:00)
--- NOTE | 2016-05-15 18:15 | EKG REPORT ---
SEVERITY:- ABNORMAL ECG - VENTRICULAR-PACED RHYTHM : Confirmed by: Emanuel Roman MD 15-May-2016 18:14:07
[2016-05-15] MEDS ORDERED: FUROSEMIDE INJ/PF 40 MG/4 ML SDV ONE (18:51)
[2016-05-15] MEDS: IPRATROPIUM/ALBUTEROL 0.5-2.5 MG/3 ML AMPUL NEB SCH (20:16)
[2016-05-15] MEDS: METHYLPREDNISOLONE INJ 125 MG/2 ML SDV IV SCH (21:29)
[2016-05-15] MEDS: ACETAMINOPHEN 325 MG TABLET PO PRN (22:55)
[2016-05-16] MEDS: METHYLPREDNISOLONE INJ 125 MG/2 ML SDV IV SCH ×4 (00:47→18:26)
[2016-05-16] MEDS ORDERED: NORMAL SALINE 1000 ML 250 ML IV ONE (01:30)
[2016-05-16] MEDS: IPRATROPIUM/ALBUTEROL 0.5-2.5 MG/3 ML AMPUL NEB SCH ×4 (01:55→19:46)
[2016-05-16 05:23] LABS: HEMATOCRIT 25.5 % (37.9-51.0); HEMOGLOBIN 8.7 g/dL (13.5-17.0); HGB HCT DIFFERENCE 0.6; MEAN CORPUSCULAR HEMOGLOBIN 28.9 pg (27.0-33.4); MEAN CORPUSCULAR HGB CONC 34.3 g/dL (32.0-36.0); MEAN CORPUSCULAR VOLUME 84 fl (80-97); RED BLOOD COUNT 3.02 10^6/uL (4.35-5.55); RED CELL DISTRIBUTION WIDTH 18.4 % (11.5-14.0); WHITE BLOOD COUNT 7.6 10^3/uL (4.0-10.5)
[2016-05-16 05:36] LABS: ANION GAP 11 (5-19); BLOOD UREA NITROGEN 70 mg/dL (7-20); CALCIUM 8.4 mg/dL (8.4-10.2); CARBON DIOXIDE 32 mmol/L (22-30); CHLORIDE 89 mmol/L (98-107); CREATININE RESULT 1.87 mg/dL (0.52-1.25); GLUCOSE 78 mg/dL (75-110); POTASSIUM 4.7 mmol/L (3.6-5.0); SODIUM 132.1 mmol/L (137-145)
[2016-05-16] MEDS: GABAPENTIN 300 MG CAPSULE PO SCH ×3 (05:41→21:52)
[2016-05-16 06:06] LABS: BAND NEUTROPHILS % (MANUAL) 1 % (3-5); BASOPHILS % (MANUAL) 1 % (0-2); EOSINOPHILS % (MANUAL) 0 % (0-6); LYMPHOCYTES % (MANUAL) 2 % (13-45); TOTAL CELLS COUNTED 100
[2016-05-16 06:09] LABS: ANISOCYTOSIS 2+; OVALOCYTES 1+; POIKILOCYTOSIS 1+
[2016-05-16 08:27] LABS: MAGNESIUM 2.3 mg/dL (1.6-2.3)
--- NOTE | 2016-05-16 09:45 | PDOC PROGRESS REPORT ---
Subjective Progress Note for:: 05/16/16 Subjective:: Patient developed urinary retention and inability to void. Blake catheter was placed and noted gross hematuria. Patient remained on the BiPAP, but no reported worsening mental status nor respirations. Patient's denies any nausea or vomiting, denies being short of breath. No reported temperature spikes. Yesterday, reported some loose bowel movement with constipation. Physical Exam Vital Signs: Temp Pulse Resp BP Pulse Ox 98.3 F 34 L 16 115/72 98 05/16/16 04:37 05/16/16 07:13 05/16/16 07:13 05/16/16 07:13 05/16/16 07:13 Pulse Oximeter Continuous Start: 05/15/16 14: 00 Freq: RTQ4 Status: Active Document 05/16/16 04:26 CBR (Rec: 05/16/16 04:36 CBR [id number]) Pulse Oximetry Assessment Oxygen Saturation (92-100) 95 Oxygen Delivery Method Bi-pap Equipment Usage Equipment in Use Continuous SpO2 Machine # N-[id number] Intake & Output 05/15/16 05/16/16 05/17/16 06:59 06:59 06:59 Intake Total 1174 Output Total 0 Balance 1174 Weight 90.2 kg General appearance: PRESENT: no acute distress, morbidly obese Head exam: PRESENT: normocephalic Eye exam: PRESENT: EOMI Mouth exam: PRESENT: moist, neck supple Neck exam: ABSENT: JVD Respiratory exam: PRESENT: rhonchi - Bilateral, wheezes - Mild more on the left Cardiovascular exam: PRESENT: RRR. ABSENT: gallop GI/Abdominal exam: PRESENT: hypoactive bowel sounds, soft. ABSENT: tenderness Extremities exam: PRESENT: other - Trace lower extremity edema Neurological exam: PRESENT: alert, awake Skin exam: PRESENT: dry, warm. ABSENT: cyanosis Results Laboratory Results: 05/16/16 04:09 05/16/16 08:00 05/16/16 05/16/16 05/16/16 04:09 04:09 08:00 WBC 7.6 RBC 3.02 L Hgb 8.7 L Hct 25.5 L MCV 84 MCH 28.9 MCHC 34.3 RDW 18.4 H Plt Count 143 L Seg Neutrophils % Not Reportable Lymphocytes % Not Reportable Monocytes % Not Reportable Eosinophils % Not Reportable Basophils % Not Reportable Absolute Neutrophils Not Reportable Absolute Lymphocytes Not Reportable Absolute Monocytes Not Reportable Absolute Eosinophils Not Reportable Absolute Basophils Not Reportable Sodium 132.1 L Potassium 4.7 5.0 Chloride 89 L Carbon Dioxide 32 H Anion Gap 11 BUN 70 H Creatinine 1.87 H Est GFR ( Amer) 43 L Est GFR (Non-Af Amer) 36 L Glucose 78 Calcium 8.4 Magnesium 2.3 Impressions: KUB X-Ray 05/15/16 00:00 IMPRESSION: NO RADIOGRAPHIC EVIDENCE FOR ACUTE ABDOMINAL DISEASE. Chest X-Ray 05/15/16 07:09 IMPRESSION: CARDIAC ENLARGEMENT. VASCULAR CONGESTION. Assessment & Plan - Diagnosis (1) Acute hypoxemic respiratory failure Is this a current diagnosis for this admission?: Yes (2) Acute on chronic combined systolic and diastolic CHF (congestive heart failure) Is this a current diagnosis for this admission?: Yes (3) COPD exacerbation Is this a current diagnosis for this admission?: Yes (4) Fever Qualifiers: Fever type: unspecified Qualified Code(s): R50.9 - Fever, unspecified Is this a current diagnosis for this admission?: Yes (5) Hypotension Qualifiers: Hypotension type: unspecified hypotension type Qualified Code(s): I95.9 - Hypotension, unspecified Is this a current diagnosis for this admission?: Yes (6) Coagulopathy Is this a current diagnosis for this admission?: Yes (7) Anemia of chronic disease Is this a current diagnosis for this admission?: Yes (8) Chronic kidney disease, stage 3 Is this a current diagnosis for this admission?: Yes (9) BPH (benign prostatic hyperplasia) Qualifiers: Prostatic enlargement morphology: unspecified morphology Lower urinary tract symptom presence: presence of symptoms unspecified Qualified Code(s ): N40.0 - Benign prostatic hyperplasia without lower urinary tract symptoms Is this a current diagnosis for this admission?: Yes (10) Cardiomyopathy Qualifiers: Cardiomyopathy type: unspecified Qualified Code(s): I42.9 - Cardiomyopathy, unspecified Is this a current diagnosis for this admission?: Yes (11) Coronary artery disease Qualifiers: Coronary Disease-Associated Artery/Lesion type: [place] artery [place] vs. transplanted heart: [place] heart Associated angina: angina presence unspecified Qualified Code(s): I25.10 - Atherosclerotic heart disease of [place] coronary artery without angina pectoris Is this a current diagnosis for this admission?: Yes (12) Essential hypertension Is this a current diagnosis for this admission?: Yes (13) GERD (gastroesophageal reflux disease) Qualifiers: Esophagitis presence: without esophagitis Qualified Code(s): K21.9 - Gastro-esophageal reflux disease without esophagitis Is this a current diagnosis for this admission?: Yes (14) Seizure disorder Is this a current diagnosis for this admission?: Yes (15) Afib Qualifiers: Atrial fibrillation type: chronic Qualified Code(s): I48.2 - Chronic atrial fibrillation Is this a current diagnosis for this admission?: Yes (16) Diabetes mellitus type 2 in obese Is this a current diagnosis for this admission?: Yes (17) Morbid obesity with BMI of 40.0-44.9, adult Is this a current diagnosis for this admission?: Yes (18) Hyperlipidemia Qualifiers: Hyperlipidemia type: unspecified Qualified Code(s): E78.5 - Hyperlipidemia, unspecified Is this a current diagnosis for this admission?: Yes - Time Time Spent with patient: 25-34 minutes - Plan Summary Plan Summary: We are going to hold aspirin as well as anticoagulants. We will monitor hemoglobin and hematocrit and transfuse accordingly. Increase intravenous fluid , monitor for congestion, decrease intravenous Lasix. Continue supportive care. We will send urine culture. Continue antibiotics.
[2016-05-16] MEDS: MIDODRINE HCL 5 MG TABLET PO SCH ×3 (09:56→18:46)
[2016-05-16] MEDS: POTASSIUM CHLORIDE 10 MEQ TABLET.SA PO SCH (09:57)
[2016-05-16] MEDS: DOCUSATE SODIUM 100 MG CAPSULE PO SCH ×2 (09:57→18:34)
[2016-05-16] MEDS: FERROUS SULFATE 325 MG TABLET PO SCH (09:59)
[2016-05-16] MEDS: LACTULOSE SYRUP 20 GM/30 ML UDCUP PO SCH ×3 (10:00→18:34)
[2016-05-16] MEDS ORDERED: FUROSEMIDE INJ/PF 40 MG/4 ML SDV IV SCH ×2 (10:00)
[2016-05-16] MEDS ORDERED: ASPIRIN 81 MG TABLET, CHEWABLE PO SCH (10:00)
[2016-05-16] MEDS: FUROSEMIDE INJ/PF 20 MG/2 ML SDV IV SCH (10:01)
[2016-05-16] MEDS: METOPROLOL TARTRATE 25 MG TABLET PO SCH (10:01)
[2016-05-16] MEDS: 1/2 NORMAL SALINE 1,000 ML IV PRN ×2 (10:09→11:56)
[2016-05-16] MEDS: LEVOFLOXACIN 750 MG/D5W RTU 150 ML IV SCH (10:10)
[2016-05-16] MEDS: DIGOXIN 0.125 MG TABLET PO SCH (10:10)
[2016-05-16 10:32] LABS: AMORPHOUS SEDIMENT,URINE TRACE /HPF; APPEARANCE,URINE SLIGHTLY-CLOUDY; BILIRUBIN,URINE NEGATIVE (NEGATIVE); CALCIUM OXALATE CRYSTALS,URINE MANY /HPF; GLUCOSE, URINE NEGATIVE (NEGATIVE); KETONES,URINE NEGATIVE (NEGATIVE); LEUKOCYTE ESTERASE,URINE NEGATIVE (NEGATIVE); NITRITE,URINE NEGATIVE (NEGATIVE); PROTEIN,URINE 100 mg/dL (NEGATIVE); URINE SPECIFIC GRAVITY 1.009; UROBILINOGEN,URINE NEGATIVE mg/dL (<2.0)
[2016-05-16 10:39] LABS: HEMATOCRIT 23.9 % (37.9-51.0); HEMOGLOBIN 8.2 g/dL (13.5-17.0); HGB HCT DIFFERENCE 0.7; MEAN CORPUSCULAR HGB CONC 34.3 g/dL (32.0-36.0); MEAN CORPUSCULAR VOLUME 85 fl (80-97); RED BLOOD COUNT 2.82 10^6/uL (4.35-5.55); RED CELL DISTRIBUTION WIDTH 17.9 % (11.5-14.0); WHITE BLOOD COUNT 5.8 10^3/uL (4.0-10.5)
[2016-05-16 10:59] LABS: BAND NEUTROPHILS % (MANUAL) 3 % (3-5); BASOPHILS % (MANUAL) 0 % (0-2); EOSINOPHILS % (MANUAL) 0 % (0-6); LYMPHOCYTES % (MANUAL) 1 % (13-45); TOTAL CELLS COUNTED 100
[2016-05-16] MEDS: BUDESONIDE/FORMOTEROL 80-4.5 MCG 60 PUFF/6.9 GM MDI IH SCH ×2 (11:15→18:47)
[2016-05-16] MEDS: CEFTRIAXONE 1 GM/D5W RTU 50 ML IV SCH (11:16)
[2016-05-16] MEDS: EPLERENONE 25 MG TABLET PO SCH ×2 (11:17→18:47)
[2016-05-16] MEDS ORDERED: 1/2 NORMAL SALINE 500 ML IV ONE (11:45)
[2016-05-16 17:33] LABS: HEMATOCRIT 23.9 % (37.9-51.0); HEMOGLOBIN 8.1 g/dL (13.5-17.0); HGB HCT DIFFERENCE 0.4; MEAN CORPUSCULAR HEMOGLOBIN 28.6 pg (27.0-33.4); MEAN CORPUSCULAR HGB CONC 33.9 g/dL (32.0-36.0); MEAN CORPUSCULAR VOLUME 84 fl (80-97); RED BLOOD COUNT 2.84 10^6/uL (4.35-5.55); RED CELL DISTRIBUTION WIDTH 17.9 % (11.5-14.0); WHITE BLOOD COUNT 4.8 10^3/uL (4.0-10.5)
[2016-05-16] MEDS: TAMSULOSIN HCL 0.4 MG CAP.SR.24H PO SCH (18:27)
[2016-05-16] MEDS: ACETAMINOPHEN 325 MG TABLET PO PRN (18:27)
[2016-05-16 23:00] LABS: HEMATOCRIT 25.5 % (37.9-51.0); HEMOGLOBIN 8.5 g/dL (13.5-17.0); MEAN CORPUSCULAR HEMOGLOBIN 28.5 pg (27.0-33.4); MEAN CORPUSCULAR HGB CONC 33.5 g/dL (32.0-36.0); MEAN CORPUSCULAR VOLUME 85 fl (80-97); RED BLOOD COUNT 2.99 10^6/uL (4.35-5.55); RED CELL DISTRIBUTION WIDTH 17.4 % (11.5-14.0); WHITE BLOOD COUNT 4.4 10^3/uL (4.0-10.5)
[2016-05-17] MEDS: METHYLPREDNISOLONE INJ 125 MG/2 ML SDV IV SCH ×5 (01:28→23:52)
[2016-05-17] MEDS: IPRATROPIUM/ALBUTEROL 0.5-2.5 MG/3 ML AMPUL NEB SCH ×4 (02:20→20:56)
[2016-05-17] MEDS: 1/2 NORMAL SALINE 1,000 ML IV PRN (03:15)
[2016-05-17 04:59] LABS: HEMOGLOBIN 8.3 g/dL (13.5-17.0); HGB HCT DIFFERENCE 0.9; MEAN CORPUSCULAR HEMOGLOBIN 28.8 pg (27.0-33.4); MEAN CORPUSCULAR HGB CONC 34.6 g/dL (32.0-36.0); MEAN CORPUSCULAR VOLUME 83 fl (80-97); RED BLOOD COUNT 2.88 10^6/uL (4.35-5.55); RED CELL DISTRIBUTION WIDTH 17.3 % (11.5-14.0); WHITE BLOOD COUNT 4.1 10^3/uL (4.0-10.5)
[2016-05-17 05:29] LABS: ANION GAP 12 (5-19); BLOOD UREA NITROGEN 63 mg/dL (7-20); CALCIUM 8.8 mg/dL (8.4-10.2); CARBON DIOXIDE 30 mmol/L (22-30); CHLORIDE 90 mmol/L (98-107); CREATININE RESULT 1.33 mg/dL (0.52-1.25); GLUCOSE 139 mg/dL (75-110); SODIUM 132.4 mmol/L (137-145)
[2016-05-17] MEDS: MIDODRINE HCL 5 MG TABLET PO SCH ×2 (06:02→17:35)
[2016-05-17] MEDS: GABAPENTIN 300 MG CAPSULE PO SCH ×3 (06:02→21:13)
[2016-05-17 06:48] LABS: POTASSIUM 3.4 mmol/L (3.6-5.0)
[2016-05-17] MEDS: FUROSEMIDE INJ/PF 20 MG/2 ML SDV IV SCH (10:43)
[2016-05-17] MEDS: CEFTRIAXONE 1 GM/D5W RTU 50 ML IV SCH (10:43)
[2016-05-17] MEDS: DIGOXIN 0.125 MG TABLET PO SCH (10:44)
[2016-05-17] MEDS: FERROUS SULFATE 325 MG TABLET PO SCH (10:44)
[2016-05-17] MEDS: METOPROLOL TARTRATE 25 MG TABLET PO SCH (10:55)
[2016-05-17] MEDS: POTASSIUM CHLORIDE 10 MEQ TABLET.SA PO SCH (10:55)
[2016-05-17] MEDS: BUDESONIDE/FORMOTEROL 80-4.5 MCG 60 PUFF/6.9 GM MDI IH SCH ×2 (10:56→17:36)
[2016-05-17] MEDS: EPLERENONE 25 MG TABLET PO SCH ×2 (10:57→17:44)
[2016-05-17] MEDS: LACTULOSE SYRUP 20 GM/30 ML UDCUP PO SCH ×3 (10:57→17:44)
[2016-05-17] MEDS: DOCUSATE SODIUM 100 MG CAPSULE PO SCH ×2 (10:57→17:36)
--- NOTE | 2016-05-17 11:09 | PDOC PROGRESS REPORT ---
Subjective Progress Note for:: 05/17/16 Subjective:: Still with bloody urine but starting to clear. Hemoglobin and hematocrit is stable now. Patient is more awake and alert and responsive. No more hypotension reported. Patient denies any worsening shortness of breath, nausea or vomiting, chills or fever. Patient denies any chest pain at all. Physical Exam Vital Signs: Temp Pulse Resp BP Pulse Ox 97.8 F 76 16 107/54 L 94 05/17/16 08:22 05/17/16 08:22 05/17/16 08:22 05/17/16 08:22 05/17/16 08:22 Pulse Oximeter Continuous Start: 05/15/16 14: 00 Freq: RTQ4 Status: Active Document 05/17/16 08:02 LDA (Rec: 05/17/16 10:08 LDA [id number]) Pulse Oximetry Assessment Oxygen Saturation (92-100) 97 Oxygen Flow Rate (L/min) 3 Oxygen Delivery Method Nasal Cannula Equipment Usage Equipment in Use Continuous SpO2 Machine # 2 Intake & Output 05/16/16 05/17/16 05/18/16 06:59 06:59 06:59 Intake Total 1174 2874 Output Total 0 6400 Balance 1174 -3526 Weight 90.2 kg 87.5 kg General appearance: PRESENT: no acute distress, cooperative Head exam: PRESENT: normocephalic Eye exam: PRESENT: EOMI Mouth exam: PRESENT: moist, neck supple Neck exam: ABSENT: JVD Respiratory exam: PRESENT: clear to auscultation nic - Anteriorly, posteriorly there are crepitations in the lower lung [place]., rhonchi - Occupational, unlabored. ABSENT: wheezes Cardiovascular exam: PRESENT: RRR. ABSENT: gallop GI/Abdominal exam: PRESENT: soft. ABSENT: distended, tenderness Extremities exam: ABSENT: pedal edema Neurological exam: PRESENT: alert, awake Psychiatric exam: ABSENT: agitated Focused psych exam: ABSENT: restlessness Skin exam: PRESENT: dry, warm, other - Patient has ecchymosis on the upper extremities bilateral left more than the right. ABSENT: cyanosis Results Laboratory Results: 05/17/16 04:49 05/17/16 04:49 05/16/16 05/16/16 05/16/16 10:20 17:11 22:52 WBC 5.8 4.8 4.4 RBC 2.82 L 2.84 L 2.99 L Hgb 8.2 L 8.1 L 8.5 L Hct 23.9 L 23.9 L 25.5 L MCV 85 84 85 MCH 29.0 28.6 28.5 MCHC 34.3 33.9 33.5 RDW 17.9 H 17.9 H 17.4 H Plt Count 135 L 139 L 138 L Sodium Potassium Chloride Carbon Dioxide Anion Gap BUN Creatinine Est GFR ( Amer) Est GFR (Non-Af Amer) Glucose Calcium 05/17/16 05/17/16 04:49 04:49 WBC 4.1 RBC 2.88 L Hgb 8.3 L Hct 24.0 L MCV 83 MCH 28.8 MCHC 34.6 RDW 17.3 H Plt Count 133 L Sodium 132.4 L Potassium 3.4 L D Chloride 90 L Carbon Dioxide 30 Anion Gap 12 BUN 63 H Creatinine 1.33 H Est GFR ( Amer) > 60 Est GFR (Non-Af Amer) 53 L Glucose 139 H Calcium 8.8 Impressions: KUB X-Ray 05/15/16 00:00 IMPRESSION: NO RADIOGRAPHIC EVIDENCE FOR ACUTE ABDOMINAL DISEASE. Chest X-Ray 05/15/16 07:09 IMPRESSION: CARDIAC ENLARGEMENT. VASCULAR CONGESTION. Assessment & Plan - Diagnosis (1) Acute hypoxemic respiratory failure Is this a current diagnosis for this admission?: Yes (2) Acute on chronic combined systolic and diastolic CHF (congestive heart failure) Is this a current diagnosis for this admission?: Yes (3) COPD exacerbation Is this a current diagnosis for this admission?: Yes (4) Fever Qualifiers: Fever type: unspecified Qualified Code(s): R50.9 - Fever, unspecified Is this a current diagnosis for this admission?: Yes (5) Hypotension Qualifiers: Hypotension type: unspecified hypotension type Qualified Code(s): I95.9 - Hypotension, unspecified Is this a current diagnosis for this admission?: Yes (6) Coagulopathy Is this a current diagnosis for this admission?: Yes (7) Anemia of chronic disease Is this a current diagnosis for this admission?: Yes (8) Chronic kidney disease, stage 3 Is this a current diagnosis for this admission?: Yes (9) BPH (benign prostatic hyperplasia) Qualifiers: Prostatic enlargement morphology: unspecified morphology Lower urinary tract symptom presence: presence of symptoms unspecified Qualified Code(s ): N40.0 - Benign prostatic hyperplasia without lower urinary tract symptoms Is this a current diagnosis for this admission?: Yes (10) Cardiomyopathy Qualifiers: Cardiomyopathy type: unspecified Qualified Code(s): I42.9 - Cardiomyopathy, unspecified Is this a current diagnosis for this admission?: Yes (11) Coronary artery disease Qualifiers: Coronary Disease-Associated Artery/Lesion type: [place] artery [place] vs. transplanted heart: [place] heart Associated angina: angina presence unspecified Qualified Code(s): I25.10 - Atherosclerotic heart disease of [place] coronary artery without angina pectoris Is this a current diagnosis for this admission?: Yes (12) Essential hypertension Is this a current diagnosis for this admission?: Yes (13) GERD (gastroesophageal reflux disease) Qualifiers: Esophagitis presence: without esophagitis Qualified Code(s): K21.9 - Gastro-esophageal reflux disease without esophagitis Is this a current diagnosis for this admission?: Yes (14) Seizure disorder Is this a current diagnosis for this admission?: Yes (15) Afib Qualifiers: Atrial fibrillation type: chronic Qualified Code(s): I48.2 - Chronic atrial fibrillation Is this a current diagnosis for this admission?: Yes (16) Diabetes mellitus type 2 in obese Is this a current diagnosis for this admission?: Yes (17) Morbid obesity with BMI of 40.0-44.9, adult Is this a current diagnosis for this admission?: Yes (18) Hyperlipidemia Qualifiers: Hyperlipidemia type: unspecified Qualified Code(s): E78.5 - Hyperlipidemia, unspecified Is this a current diagnosis for this admission?: Yes - Time Time Spent with patient: 25-34 minutes - Plan Summary Plan Summary: We will monitor her hemoglobin and hematocrit. I will continue to hold antiplatelets and anticoagulants. We will transfuse if crit falls below 8. In the meantime continue antibiotic and steroids. Follow cultures. Discontinue intravenous fluids. Replace potassium, recheck creatinine and electrolytes in the morning. Continue supportive care.
[2016-05-17] MEDS: ACETAMINOPHEN 325 MG TABLET PO PRN (11:50)
[2016-05-17] MEDS ORDERED: POTASSI CL 20 MEQ/50 ML RIDER 50 ML IV SCH (12:00)
[2016-05-17] MEDS: LEVOFLOXACIN 750 MG/D5W RTU 150 ML IV SCH (12:00)
[2016-05-17] MEDS: POTASSIUM CHLORIDE 20 MEQ/50 ML RTU IV SCH ×3 (15:53→19:04)
[2016-05-17] MEDS: TAMSULOSIN HCL 0.4 MG CAP.SR.24H PO SCH (17:35)
[2016-05-18] MEDS: IPRATROPIUM/ALBUTEROL 0.5-2.5 MG/3 ML AMPUL NEB SCH ×4 (02:07→19:58)
[2016-05-18] MEDS: ACETAMINOPHEN 325 MG TABLET PO PRN ×2 (03:24→08:46)
[2016-05-18 03:49] LABS: HEMATOCRIT 26.4 % (37.9-51.0); HEMOGLOBIN 8.9 g/dL (13.5-17.0); HGB HCT DIFFERENCE 0.3; MEAN CORPUSCULAR HEMOGLOBIN 28.6 pg (27.0-33.4); MEAN CORPUSCULAR HGB CONC 33.7 g/dL (32.0-36.0); MEAN CORPUSCULAR VOLUME 85 fl (80-97); RED BLOOD COUNT 3.12 10^6/uL (4.35-5.55); WHITE BLOOD COUNT 5.5 10^3/uL (4.0-10.5)
[2016-05-18 04:09] LABS: ANION GAP 13 (5-19); BLOOD UREA NITROGEN 51 mg/dL (7-20); CALCIUM 8.9 mg/dL (8.4-10.2); CARBON DIOXIDE 31 mmol/L (22-30); CHLORIDE 90 mmol/L (98-107); CREATININE RESULT 0.96 mg/dL (0.52-1.25); GLUCOSE 160 mg/dL (75-110); MAGNESIUM 1.7 mg/dL (1.6-2.3); POTASSIUM 3.9 mmol/L (3.6-5.0); SODIUM 133.8 mmol/L (137-145)
[2016-05-18] MEDS: MIDODRINE HCL 5 MG TABLET PO SCH ×3 (05:51→17:48)
[2016-05-18] MEDS: METHYLPREDNISOLONE INJ 125 MG/2 ML SDV IV SCH (05:51)
[2016-05-18] MEDS: GABAPENTIN 300 MG CAPSULE PO SCH ×3 (05:51→21:19)
--- NOTE | 2016-05-18 09:59 | PDOC PROGRESS REPORT ---
Subjective Progress Note for:: 05/18/16 Subjective:: No reported temperature spikes, no reported respiratory distress. Patient denies any diarrhea. Had one episode yesterday. Clostridium difficile toxin was negative. No chills or fever. No nausea or vomiting. Denies any chest pain. Patient is off BiPAP today. Physical Exam Vital Signs: Temp Pulse Resp BP Pulse Ox 97.7 F 75 18 106/48 L 97 05/18/16 07:21 05/18/16 08:08 05/18/16 08:08 05/18/16 07:21 05/18/16 08:08 Pulse Oximeter Continuous Start: 05/15/16 14: 00 Freq: RTQ4 Status: Active Document 05/18/16 08:08 LDA (Rec: 05/18/16 08:19 LDA [email or web address]) Pulse Oximetry Assessment Oxygen Saturation (92-100) 97 Oxygen Flow Rate (L/min) 3 Oxygen Delivery Method Nasal Cannula Equipment Usage Equipment in Use Continuous SpO2 Machine # 2 Intake & Output 05/17/16 05/18/16 05/19/16 06:59 06:59 06:59 Intake Total 2874 2379 Output Total 6400 4400 Balance -352 -2020 Weight 87.5 kg 87.5 kg General appearance: PRESENT: no acute distress, cooperative Head exam: PRESENT: normocephalic Eye exam: PRESENT: EOMI Mouth exam: PRESENT: moist, neck supple Neck exam: ABSENT: JVD Respiratory exam: PRESENT: rhonchi - few bilateral, unlabored, wheezes - Improved and less Cardiovascular exam: PRESENT: irregular rhythm. ABSENT: gallop GI/Abdominal exam: PRESENT: soft. ABSENT: distended, tenderness Gentrourinary exam: PRESENT: indwelling catheter - Urine still bloody, but getting more clear. Extremities exam: ABSENT: pedal edema Results Laboratory Results: 05/18/16 03:39 05/18/16 03:39 05/18/16 05/18/16 03:39 03:39 WBC 5.5 RBC 3.12 L Hgb 8.9 L Hct 26.4 L MCV 85 MCH 28.6 MCHC 33.7 RDW 18.0 H Plt Count 132 L Sodium 133.8 L Potassium 3.9 Chloride 90 L Carbon Dioxide 31 H Anion Gap 13 BUN 51 H Creatinine 0.96 Est GFR ( Amer) > 60 Est GFR (Non-Af Amer) > 60 Glucose 160 H Calcium 8.9 Magnesium 1.7 Impressions: KUB X-Ray 05/15/16 00:00 IMPRESSION: NO RADIOGRAPHIC EVIDENCE FOR ACUTE ABDOMINAL DISEASE. Chest X-Ray 05/15/16 07:09 IMPRESSION: CARDIAC ENLARGEMENT. VASCULAR CONGESTION. Assessment & Plan - Diagnosis (1) Acute hypoxemic respiratory failure Is this a current diagnosis for this admission?: Yes (2) Acute on chronic combined systolic and diastolic CHF (congestive heart failure) Is this a current diagnosis for this admission?: Yes (3) COPD exacerbation Is this a current diagnosis for this admission?: Yes (5) Bladder outflow obstruction Is this a current diagnosis for this admission?: Yes (6) Fever Qualifiers: Fever type: unspecified Qualified Code(s): R50.9 - Fever, unspecified Is this a current diagnosis for this admission?: Yes (7) Hypotension Qualifiers: Hypotension type: unspecified hypotension type Qualified Code(s): I95.9 - Hypotension, unspecified Is this a current diagnosis for this admission?: Yes (8) Coagulopathy Is this a current diagnosis for this admission?: Yes (9) Anemia of chronic disease Is this a current diagnosis for this admission?: Yes (10) Chronic kidney disease, stage 3 Is this a current diagnosis for this admission?: Yes (11) BPH (benign prostatic hyperplasia) Qualifiers: Prostatic enlargement morphology: unspecified morphology Lower urinary tract symptom presence: presence of symptoms unspecified Qualified Code(s ): N40.0 - Benign prostatic hyperplasia without lower urinary tract symptoms Is this a current diagnosis for this admission?: Yes (12) Cardiomyopathy Qualifiers: Cardiomyopathy type: unspecified Qualified Code(s): I42.9 - Cardiomyopathy, unspecified Is this a current diagnosis for this admission?: Yes (13) Coronary artery disease Qualifiers: Coronary Disease-Associated Artery/Lesion type: [place] artery [place] vs. transplanted heart: [place] heart Associated angina: angina presence unspecified Qualified Code(s): I25.10 - Atherosclerotic heart disease of [place] coronary artery without angina pectoris Is this a current diagnosis for this admission?: Yes (14) Essential hypertension Is this a current diagnosis for this admission?: Yes (15) GERD (gastroesophageal reflux disease) Qualifiers: Esophagitis presence: without esophagitis Qualified Code(s): K21.9 - Gastro-esophageal reflux disease without esophagitis Is this a current diagnosis for this admission?: Yes (16) Seizure disorder Is this a current diagnosis for this admission?: Yes (17) Afib Qualifiers: Atrial fibrillation type: chronic Qualified Code(s): I48.2 - Chronic atrial fibrillation Is this a current diagnosis for this admission?: Yes (18) Diabetes mellitus type 2 in obese Is this a current diagnosis for this admission?: Yes (19) Morbid obesity with BMI of 40.0-44.9, adult Is this a current diagnosis for this admission?: Yes (20) Hyperlipidemia Qualifiers: Hyperlipidemia type: unspecified Qualified Code(s): E78.5 - Hyperlipidemia, unspecified Is this a current diagnosis for this admission?: Yes - Time Time Spent with patient: 25-34 minutes - Plan Summary Plan Summary: We will continue antibiotics for now. Discontinue intravenous steroids and shift to oral. Patient's hemoglobin and hematocrit stable, I will resume the patient's aspirin at this time but I will continue to hold his eliquis. Continue to monitor hemoglobin and hematocrit. Continue Blake catheter. Begin physical therapy as patient is off the BiPAP now. Continue supportive care.
[2016-05-18] MEDS: BUDESONIDE/FORMOTEROL 80-4.5 MCG 60 PUFF/6.9 GM MDI IH SCH ×2 (11:01→17:47)
[2016-05-18] MEDS: EPLERENONE 25 MG TABLET PO SCH ×2 (11:02→17:49)
[2016-05-18] MEDS: POTASSIUM CHLORIDE 10 MEQ TABLET.SA PO SCH (11:02)
[2016-05-18] MEDS: ASPIRIN 81 MG TABLET, CHEWABLE PO SCH (11:03)
[2016-05-18] MEDS: FERROUS SULFATE 325 MG TABLET PO SCH (11:03)
[2016-05-18] MEDS: DIGOXIN 0.125 MG TABLET PO SCH (11:03)
[2016-05-18] MEDS: CEFTRIAXONE 1 GM/D5W RTU 50 ML IV SCH (11:04)
[2016-05-18] MEDS: DOCUSATE SODIUM 100 MG CAPSULE PO SCH ×2 (11:04→17:46)
[2016-05-18] MEDS: FUROSEMIDE INJ/PF 20 MG/2 ML SDV IV SCH (11:45)
[2016-05-18] MEDS: LACTULOSE SYRUP 20 GM/30 ML UDCUP PO SCH ×3 (11:45→17:46)
[2016-05-18] MEDS: METOPROLOL TARTRATE 25 MG TABLET PO SCH (11:46)
[2016-05-18] MEDS: PREDNISONE 20 MG TABLET PO SCH (12:42)
[2016-05-18] MEDS: TAMSULOSIN HCL 0.4 MG CAP.SR.24H PO SCH (17:47)
[2016-05-19] MEDS: IPRATROPIUM/ALBUTEROL 0.5-2.5 MG/3 ML AMPUL NEB SCH ×4 (02:11→19:44)
[2016-05-19] MEDS: ACETAMINOPHEN 325 MG TABLET PO PRN ×3 (04:28→21:10)
[2016-05-19] MEDS: GABAPENTIN 300 MG CAPSULE PO SCH ×3 (05:51→21:11)
[2016-05-19 06:30] LABS: HEMATOCRIT 26.7 % (37.9-51.0); HGB HCT DIFFERENCE 0.3; MEAN CORPUSCULAR HEMOGLOBIN 28.8 pg (27.0-33.4); MEAN CORPUSCULAR HGB CONC 33.7 g/dL (32.0-36.0); MEAN CORPUSCULAR VOLUME 86 fl (80-97); RED BLOOD COUNT 3.12 10^6/uL (4.35-5.55); RED CELL DISTRIBUTION WIDTH 17.8 % (11.5-14.0); WHITE BLOOD COUNT 6.2 10^3/uL (4.0-10.5)
[2016-05-19] MEDS ORDERED: MIDODRINE HCL 5 MG TABLET PO ONE (08:30)
[2016-05-19] MEDS ORDERED: METHYLERGONOVINE MALEATE INJ/PF 0.2 MG/1 ML AMPULE ONE ×2 (09:07→11:04)
[2016-05-19] MEDS: BUDESONIDE/FORMOTEROL 80-4.5 MCG 60 PUFF/6.9 GM MDI IH SCH ×2 (10:24→17:57)
[2016-05-19] MEDS: FUROSEMIDE INJ/PF 20 MG/2 ML SDV IV SCH (10:24)
[2016-05-19] MEDS: POTASSIUM CHLORIDE 10 MEQ TABLET.SA PO SCH (10:25)
[2016-05-19] MEDS: METOPROLOL TARTRATE 25 MG TABLET PO SCH (10:25)
[2016-05-19] MEDS: DIGOXIN 0.125 MG TABLET PO SCH (10:25)
[2016-05-19] MEDS: FERROUS SULFATE 325 MG TABLET PO SCH (10:26)
[2016-05-19] MEDS: CEFTRIAXONE 1 GM/D5W RTU 50 ML IV SCH (10:26)
[2016-05-19] MEDS: LEVOFLOXACIN 750 MG TABLET PO SCH (10:26)
[2016-05-19] MEDS: DOCUSATE SODIUM 100 MG CAPSULE PO SCH ×2 (10:26→17:58)
[2016-05-19] MEDS: EPLERENONE 25 MG TABLET PO SCH ×2 (10:26→17:57)
[2016-05-19] MEDS: PREDNISONE 20 MG TABLET PO SCH (10:29)
[2016-05-19] MEDS: ASPIRIN 81 MG TABLET, CHEWABLE PO SCH (10:29)
[2016-05-19] MEDS: LACTULOSE SYRUP 20 GM/30 ML UDCUP PO SCH ×3 (10:38→18:00)
[2016-05-19] MEDS: MIDODRINE HCL 5 MG TABLET PO SCH ×2 (11:13→17:57)
--- NOTE | 2016-05-19 11:16 | PDOC PROGRESS REPORT ---
Subjective Progress Note for:: 05/19/16 Subjective:: Patient denies any complaints. He reports that his breathing is doing much better. Physical Exam Vital Signs: Temp Pulse Resp BP Pulse Ox 98.1 F 69 20 96/56 L 95 05/19/16 07:21 05/19/16 08:07 05/19/16 08:07 05/19/16 07:21 05/19/16 08:07 Pulse Oximeter Continuous Start: 05/15/16 14: 00 Freq: RTQ4 Status: Active Document 05/19/16 08:07 NSC (Rec: 05/19/16 09:43 [facility] [place] [id number]) Pulse Oximetry Assessment Oxygen Saturation (92-100) 95 Oxygen Flow Rate (L/min) 5 Oxygen Delivery Method Nasal Cannula Fraction of Inspired Oxygen (FIO2) 40 Equipment Usage Equipment in Use Continuous SpO2 Machine # N 2 Intake & Output 05/18/16 05/19/16 05/20/16 06:59 06:59 06:59 Intake Total 2379 1038 Output Total 4400 3050 Balance -2020 Weight 87.5 kg 90.3 kg General appearance: PRESENT: no acute distress Eye exam: PRESENT: conjunctiva pink. ABSENT: scleral icterus Mouth exam: PRESENT: moist, tongue midline Neck exam: ABSENT: JVD Respiratory exam: PRESENT: clear to auscultation nic. ABSENT: rales, rhonchi, wheezes Cardiovascular exam: PRESENT: RRR. ABSENT: diastolic murmur, rubs, systolic murmur GI/Abdominal exam: PRESENT: normal bowel sounds, soft. ABSENT: distended, guarding, mass, organolmegaly, rebound, tenderness Extremities exam: PRESENT: pedal edema - Trace pedal edema. ABSENT: calf tenderness, clubbing Neurological exam: PRESENT: alert, awake, oriented to person, oriented to place , oriented to time. ABSENT: oriented to situation Psychiatric exam: PRESENT: appropriate affect Skin exam: PRESENT: dry, intact, warm. ABSENT: cyanosis, rash Results Laboratory Results: 05/19/16 05:01 05/18/16 03:39 05/19/16 05:01 WBC 6.2 RBC 3.12 L Hgb 9.0 L Hct 26.7 L MCV 86 MCH 28.8 MCHC 33.7 RDW 17.8 H Plt Count 121 L 05/16/16 09:55 Blake Catheter Urine Culture - Final NO GROWTH 2 DAYS Impressions: KUB X-Ray 05/15/16 00:00 IMPRESSION: NO RADIOGRAPHIC EVIDENCE FOR ACUTE ABDOMINAL DISEASE. Chest X-Ray 05/15/16 07:09 IMPRESSION: CARDIAC ENLARGEMENT. VASCULAR CONGESTION. Assessment & Plan - Diagnosis (1) Chronic hypoxemic respiratory failure Is this a current diagnosis for this admission?: YesPlan: Patient has acute on chronic respiratory failure which is improving. (2) Acute on chronic combined systolic and diastolic CHF (congestive heart failure) Is this a current diagnosis for this admission?: YesPlan: Patient is getting IV Lasix. He continues to improve and hopefully tomorrow we can switch him over to oral Lasix. (3) COPD exacerbation Is this a current diagnosis for this admission?: YesPlan: Continues to improve with steroids and nebulizers. (4) Anemia of chronic disease Is this a current diagnosis for this admission?: YesPlan: Hemoglobin remained stable. (5) Bladder outflow obstruction Is this a current diagnosis for this admission?: Yes (6) Chronic kidney disease, stage 3 Is this a current diagnosis for this admission?: YesPlan: Patient is improving with Lasix. (7) Hyperlipidemia Qualifiers: Hyperlipidemia type: unspecified Qualified Code(s): E78.5 - Hyperlipidemia, unspecified Is this a current diagnosis for this admission?: Yes (8) Anxiety Is this a current diagnosis for this admission?: YesPlan: Stable (9) Coronary artery disease Qualifiers: Coronary Disease-Associated Artery/Lesion type: [place] artery [place] vs. transplanted heart: [place] heart Associated angina: angina presence unspecified Qualified Code(s): I25.10 - Atherosclerotic heart disease of [place] coronary artery without angina pectoris Is this a current diagnosis for this admission?: YesPlan: Denies any chest pain. (10) Diabetes type 2, controlled Is this a current diagnosis for this admission?: YesPlan: Blood sugars have all been less than 200. (11) Essential hypertension Is this a current diagnosis for this admission?: YesPlan: Blood pressures have actually been on the lower side. (12) GERD (gastroesophageal reflux disease) Qualifiers: Esophagitis presence: without esophagitis Qualified Code(s): K21.9 - Gastro-esophageal reflux disease without esophagitis Is this a current diagnosis for this admission?: Yes (13) History of implantable cardioverter-defibrillator (ICD) placement Is this a current diagnosis for this admission?: Yes (14) Afib Qualifiers: Atrial fibrillation type: chronic Qualified Code(s): I48.2 - Chronic atrial fibrillation Is this a current diagnosis for this admission?: YesPlan: Patient is in a regular rhythm today. - Time Time Spent with patient: 25-34 minutes - Inpatient Certification Medical Necessity: Need Close Monitoring Due to Risk of Patient Decompensation - Plan Summary Plan Summary: Will change to oral Lasix tomorrow and hopefully the day after that he can be discharged.
[2016-05-19] MEDS: TAMSULOSIN HCL 0.4 MG CAP.SR.24H PO SCH (17:57)
[2016-05-20] MEDS: IPRATROPIUM/ALBUTEROL 0.5-2.5 MG/3 ML AMPUL NEB SCH ×4 (01:56→21:27)
[2016-05-20] MEDS: ACETAMINOPHEN 325 MG TABLET PO PRN ×2 (05:36→22:35)
[2016-05-20] MEDS: MIDODRINE HCL 5 MG TABLET PO SCH ×3 (05:36→17:50)
[2016-05-20] MEDS: GABAPENTIN 300 MG CAPSULE PO SCH ×3 (05:36→22:35)
[2016-05-20 06:28] LABS: ABSOLUTE LYMPHOCYTES (AUTO) 0.6 10^3/uL (0.5-4.7); ABSOLUTE MONOCYTES (AUTO) 0.3 10^3/uL (0.1-1.4); ABSOLUTE NEUT (AUTO) 4.4 10^3/uL (1.7-8.2); BASOPHILS % (AUTO) 0.3 % (0-2); EOSINOPHILS % (AUTO) 0.1 % (0-6); HEMATOCRIT 26.6 % (37.9-51.0); HEMOGLOBIN 9.1 g/dL (13.5-17.0); HGB HCT DIFFERENCE 0.7; LYMPHOCYTES % (AUTO) 11.5 % (13-45); MEAN CORPUSCULAR HEMOGLOBIN 28.6 pg (27.0-33.4); MEAN CORPUSCULAR HGB CONC 34.1 g/dL (32.0-36.0); MEAN CORPUSCULAR VOLUME 84 fl (80-97); MONOCYTES % (AUTO) 5.6 % (3-13); RED BLOOD COUNT 3.16 10^6/uL (4.35-5.55); RED CELL DISTRIBUTION WIDTH 17.9 % (11.5-14.0); SEGMENTED NEUTROPHILS % (AUTO) 82.5 % (42-78); WHITE BLOOD COUNT 5.3 10^3/uL (4.0-10.5)
[2016-05-20 06:36] LABS: ANION GAP 14 (5-19); BLOOD UREA NITROGEN 32 mg/dL (7-20); CALCIUM 9.1 mg/dL (8.4-10.2); CARBON DIOXIDE 35 mmol/L (22-30); CHLORIDE 85 mmol/L (98-107); CREATININE RESULT 0.68 mg/dL (0.52-1.25); GLUCOSE 81 mg/dL (75-110); POTASSIUM 3.1 mmol/L (3.6-5.0); SODIUM 133.7 mmol/L (137-145)
[2016-05-20] MEDS ORDERED: POTASSI CL 20 MEQ/50 ML RIDER 50 ML IV SCH (07:45)
[2016-05-20] MEDS: METOPROLOL TARTRATE 25 MG TABLET PO SCH (10:29)
[2016-05-20] MEDS: FUROSEMIDE INJ/PF 20 MG/2 ML SDV IV SCH (10:29)
[2016-05-20] MEDS: EPLERENONE 25 MG TABLET PO SCH ×2 (10:29→17:50)
[2016-05-20] MEDS: ASPIRIN 81 MG TABLET, CHEWABLE PO SCH (10:29)
[2016-05-20] MEDS: POTASSIUM CHLORIDE 10 MEQ TABLET.SA PO SCH (10:30)
[2016-05-20] MEDS: DOCUSATE SODIUM 100 MG CAPSULE PO SCH ×2 (10:31→17:49)
[2016-05-20] MEDS: DIGOXIN 0.125 MG TABLET PO SCH (10:31)
[2016-05-20] MEDS: LEVOFLOXACIN 750 MG TABLET PO SCH (10:31)
[2016-05-20] MEDS: FERROUS SULFATE 325 MG TABLET PO SCH (10:31)
[2016-05-20] MEDS: CEFTRIAXONE 1 GM/D5W RTU 50 ML IV SCH (10:32)
[2016-05-20] MEDS: BUDESONIDE/FORMOTEROL 80-4.5 MCG 60 PUFF/6.9 GM MDI IH SCH ×2 (10:32→17:49)
[2016-05-20] MEDS: PREDNISONE 20 MG TABLET PO SCH (10:35)
--- NOTE | 2016-05-20 10:49 | PDOC PROGRESS REPORT ---
Subjective Progress Note for:: 05/20/16 Subjective:: Patient denies any complaints. He reports that his breathing is doing much better. Physical Exam Vital Signs: Temp Pulse Resp BP Pulse Ox 97.4 F 74 16 103/74 99 05/20/16 07:52 05/20/16 07:52 05/20/16 07:52 05/20/16 07:52 05/20/16 07:52 Pulse Oximeter Continuous Start: 05/15/16 14: 00 Freq: RTQ4 Status: Active Document 05/20/16 07:43 CBR (Rec: 05/20/16 09:25 CBR [id number]) Pulse Oximetry Assessment Oxygen Saturation (92-100) 91 Oxygen Flow Rate (L/min) 3 Oxygen Delivery Method Nasal Cannula Equipment Usage Equipment in Use Continuous SpO2 Machine # 2 Intake & Output 05/19/16 05/20/16 05/21/16 06:59 06:59 06:59 Intake Total 1038 1895 Output Total 3050 3350 Weight 90.3 kg 89.9 kg General appearance: PRESENT: no acute distress Eye exam: PRESENT: conjunctiva pink. ABSENT: scleral icterus Mouth exam: PRESENT: moist, tongue midline Neck exam: ABSENT: JVD Respiratory exam: PRESENT: rales - Few left basilar rales.. ABSENT: rhonchi, wheezes Cardiovascular exam: PRESENT: RRR. ABSENT: diastolic murmur, rubs, systolic murmur GI/Abdominal exam: PRESENT: normal bowel sounds, soft. ABSENT: distended, guarding, mass, organolmegaly, rebound, tenderness Extremities exam: ABSENT: calf tenderness, clubbing, pedal edema Neurological exam: PRESENT: alert, awake, oriented to person, oriented to place , oriented to time, oriented to situation, CN II-XII grossly intact. ABSENT: motor sensory deficit Psychiatric exam: PRESENT: appropriate affect Skin exam: PRESENT: dry, intact, warm. ABSENT: cyanosis, rash Results Laboratory Results: 05/20/16 05:22 05/20/16 05:22 05/20/16 05/20/16 05:22 05:22 WBC 5.3 RBC 3.16 L Hgb 9.1 L Hct 26.6 L MCV 84 MCH 28.6 MCHC 34.1 RDW 17.9 H Plt Count 107 L Seg Neutrophils % 82.5 H Lymphocytes % 11.5 L Monocytes % 5.6 Eosinophils % 0.1 Basophils % 0.3 Absolute Neutrophils 4.4 Absolute Lymphocytes 0.6 Absolute Monocytes 0.3 Absolute Eosinophils 0.0 Absolute Basophils 0.0 Sodium 133.7 L Potassium 3.1 L Chloride 85 L Carbon Dioxide 35 H Anion Gap 14 BUN 32 H Creatinine 0.68 Est GFR ( Amer) > 60 Est GFR (Non-Af Amer) > 60 Glucose 81 Calcium 9.1 Impressions: KUB X-Ray 05/15/16 00:00 IMPRESSION: NO RADIOGRAPHIC EVIDENCE FOR ACUTE ABDOMINAL DISEASE. Chest X-Ray 05/15/16 07:09 IMPRESSION: CARDIAC ENLARGEMENT. VASCULAR CONGESTION. Assessment & Plan - Diagnosis (1) Chronic hypoxemic respiratory failure Is this a current diagnosis for this admission?: YesPlan: Patient has acute on chronic respiratory failure which is improving. (2) Acute on chronic combined systolic and diastolic CHF (congestive heart failure) Is this a current diagnosis for this admission?: YesPlan: Patient is getting IV Lasix. He continues to improve and hopefully tomorrow we can switch him over to oral Lasix. (3) COPD exacerbation Is this a current diagnosis for this admission?: YesPlan: Continues to improve with steroids and nebulizers. (4) Anemia of chronic disease Is this a current diagnosis for this admission?: YesPlan: Hemoglobin remained stable. (5) Bladder outflow obstruction Is this a current diagnosis for this admission?: Yes (6) Chronic kidney disease, stage 3 Is this a current diagnosis for this admission?: YesPlan: Patient is improving with Lasix. (7) Hyperlipidemia Qualifiers: Hyperlipidemia type: unspecified Qualified Code(s): E78.5 - Hyperlipidemia, unspecified Is this a current diagnosis for this admission?: Yes (8) Anxiety Is this a current diagnosis for this admission?: YesPlan: Stable (9) Coronary artery disease Qualifiers: Coronary Disease-Associated Artery/Lesion type: [place] artery [place] vs. transplanted heart: [place] heart Associated angina: angina presence unspecified Qualified Code(s): I25.10 - Atherosclerotic heart disease of [place] coronary artery without angina pectoris Is this a current diagnosis for this admission?: YesPlan: Denies any chest pain. (10) Diabetes type 2, controlled Is this a current diagnosis for this admission?: YesPlan: Blood sugars have all been less than 200. (11) Essential hypertension Is this a current diagnosis for this admission?: YesPlan: Blood pressures have actually been on the lower side. (12) GERD (gastroesophageal reflux disease) Qualifiers: Esophagitis presence: without esophagitis Qualified Code(s): K21.9 - Gastro-esophageal reflux disease without esophagitis Is this a current diagnosis for this admission?: Yes (13) History of implantable cardioverter-defibrillator (ICD) placement Is this a current diagnosis for this admission?: Yes (14) Afib Qualifiers: Atrial fibrillation type: chronic Qualified Code(s): I48.2 - Chronic atrial fibrillation Is this a current diagnosis for this admission?: YesPlan: Patient is in a regular rhythm today. - Time Time Spent with patient: 25-34 minutes - Inpatient Certification Medical Necessity: Need Close Monitoring Due to Risk of Patient Decompensation - Plan Summary Plan Summary: He continues to improve we can hope for discharge home tomorrow.
[2016-05-20] MEDS: LACTULOSE SYRUP 20 GM/30 ML UDCUP PO SCH ×3 (10:51→17:50)
[2016-05-20] MEDS: TAMSULOSIN HCL 0.4 MG CAP.SR.24H PO SCH (17:49)
[2016-05-21] MEDS: IPRATROPIUM/ALBUTEROL 0.5-2.5 MG/3 ML AMPUL NEB SCH ×4 (04:38→20:21)
[2016-05-21 05:05] LABS: HEMATOCRIT 26.4 % (37.9-51.0); HGB HCT DIFFERENCE 0.6; MEAN CORPUSCULAR HEMOGLOBIN 28.5 pg (27.0-33.4); MEAN CORPUSCULAR HGB CONC 33.9 g/dL (32.0-36.0); MEAN CORPUSCULAR VOLUME 84 fl (80-97); RED BLOOD COUNT 3.15 10^6/uL (4.35-5.55); RED CELL DISTRIBUTION WIDTH 17.3 % (11.5-14.0); WHITE BLOOD COUNT 5.2 10^3/uL (4.0-10.5)
[2016-05-21 05:32] LABS: ANION GAP 13 (5-19); BLOOD UREA NITROGEN 30 mg/dL (7-20); CALCIUM 8.7 mg/dL (8.4-10.2); CARBON DIOXIDE 33 mmol/L (22-30); CHLORIDE 88 mmol/L (98-107); CREATININE RESULT 0.71 mg/dL (0.52-1.25); GLUCOSE 155 mg/dL (75-110); SODIUM 134.1 mmol/L (137-145)
[2016-05-21 05:38] LABS: BAND NEUTROPHILS % (MANUAL) 8 % (3-5); BASOPHILS % (MANUAL) 0 % (0-2); EOSINOPHILS % (MANUAL) 0 % (0-6); LYMPHOCYTES % (MANUAL) 14 % (13-45); TOTAL CELLS COUNTED 100
[2016-05-21 05:39] LABS: ANISOCYTOSIS 1+; POLYCHROMASIA SLIGHT; TOXIC GRANULATION SLIGHT
[2016-05-21 05:40] LABS: OVALOCYTES SLIGHT; POIKILOCYTOSIS SLIGHT; TEAR DROP CELLS SLIGHT
[2016-05-21] MEDS: ACETAMINOPHEN 325 MG TABLET PO PRN (05:41)
[2016-05-21] MEDS: GABAPENTIN 300 MG CAPSULE PO SCH ×3 (05:41→22:41)
[2016-05-21] MEDS: MIDODRINE HCL 5 MG TABLET PO SCH ×3 (05:43→17:55)
[2016-05-21] MEDS: METOPROLOL TARTRATE 25 MG TABLET PO SCH (09:53)
[2016-05-21] MEDS: DIGOXIN 0.125 MG TABLET PO SCH (09:53)
[2016-05-21] MEDS: EPLERENONE 25 MG TABLET PO SCH ×2 (09:53→17:54)
[2016-05-21] MEDS: DOCUSATE SODIUM 100 MG CAPSULE PO SCH ×2 (09:53→17:55)
[2016-05-21] MEDS: FUROSEMIDE 40 MG TABLET PO SCH (09:54)
[2016-05-21] MEDS: POTASSIUM CHLORIDE 10 MEQ TABLET.SA PO SCH (09:54)
[2016-05-21] MEDS: BUDESONIDE/FORMOTEROL 80-4.5 MCG 60 PUFF/6.9 GM MDI IH SCH ×2 (09:55→17:54)
[2016-05-21] MEDS: LEVOFLOXACIN 750 MG TABLET PO SCH (09:55)
[2016-05-21] MEDS: FERROUS SULFATE 325 MG TABLET PO SCH (09:55)
[2016-05-21] MEDS: CEFTRIAXONE 1 GM/D5W RTU 50 ML IV SCH (09:56)
[2016-05-21] MEDS: LACTULOSE SYRUP 20 GM/30 ML UDCUP PO SCH ×3 (10:01→17:39)
[2016-05-21] MEDS: PREDNISONE 20 MG TABLET PO SCH (10:44)
[2016-05-21] MEDS: ASPIRIN 81 MG TABLET, CHEWABLE PO SCH (10:44)
--- NOTE | 2016-05-21 14:13 | PDOC PROGRESS REPORT ---
Subjective Progress Note for:: 05/21/16 Subjective:: Patient denies any complaints. His Blake was removed this morning but was unable to urinate. Physical Exam Vital Signs: Temp Pulse Resp BP Pulse Ox 97.8 F 92 20 94/65 L 92 05/21/16 12:06 05/21/16 13:47 05/21/16 13:47 05/21/16 12:06 05/21/16 13:47 Pulse Oximeter Continuous Start: 05/15/16 14: 00 Freq: RTQ4 Status: Active Document 05/21/16 12:15 HCR (Rec: 05/21/16 12:16 HCR [email or web address]) Pulse Oximetry Assessment Oxygen Saturation (92-100) 94 Oxygen Flow Rate (L/min) 3.5 Oxygen Delivery Method Nasal Cannula Equipment Usage Equipment in Use Continuous SpO2 Machine # 2 Intake & Output 05/20/16 05/21/16 05/22/16 06:59 06:59 06:59 Intake Total 1895 1180 459 Output Total 3350 3000 20 Balance -1455 -1820 439 Weight 89.9 kg 90.2 kg General appearance: PRESENT: no acute distress Eye exam: PRESENT: conjunctiva pink. ABSENT: scleral icterus Mouth exam: PRESENT: moist, tongue midline Neck exam: ABSENT: JVD Respiratory exam: PRESENT: clear to auscultation nic. ABSENT: rales, rhonchi, wheezes Cardiovascular exam: PRESENT: RRR. ABSENT: diastolic murmur, rubs, systolic murmur GI/Abdominal exam: PRESENT: normal bowel sounds, soft. ABSENT: distended, guarding, mass, organolmegaly, rebound, tenderness Extremities exam: ABSENT: calf tenderness, clubbing, pedal edema Neurological exam: PRESENT: alert, awake, oriented to person, oriented to place , oriented to time, oriented to situation, CN II-XII grossly intact. ABSENT: motor sensory deficit Psychiatric exam: PRESENT: appropriate affect Skin exam: PRESENT: dry, intact, warm. ABSENT: cyanosis, rash Results Laboratory Results: 05/21/16 04:10 05/21/16 04:10 05/21/16 05/21/16 04:10 04:10 WBC 5.2 RBC 3.15 L Hgb 9.0 L Hct 26.4 L MCV 84 MCH 28.5 MCHC 33.9 RDW 17.3 H Plt Count 111 L Seg Neutrophils % Not Reportable Lymphocytes % Not Reportable Monocytes % Not Reportable Eosinophils % Not Reportable Basophils % Not Reportable Absolute Neutrophils Not Reportable Absolute Lymphocytes Not Reportable Absolute Monocytes Not Reportable Absolute Eosinophils Not Reportable Absolute Basophils Not Reportable Sodium 134.1 L Potassium 4.0 Chloride 88 L Carbon Dioxide 33 H Anion Gap 13 BUN 30 H Creatinine 0.71 Est GFR ( Amer) > 60 Est GFR (Non-Af Amer) > 60 Glucose 155 H Calcium 8.7 Impressions: KUB X-Ray 05/15/16 00:00 IMPRESSION: NO RADIOGRAPHIC EVIDENCE FOR ACUTE ABDOMINAL DISEASE. Chest X-Ray 05/15/16 07:09 IMPRESSION: CARDIAC ENLARGEMENT. VASCULAR CONGESTION. Assessment & Plan - Diagnosis (1) Chronic hypoxemic respiratory failure Is this a current diagnosis for this admission?: YesPlan: Patient has acute on chronic respiratory failure which is improving. (2) Acute on chronic combined systolic and diastolic CHF (congestive heart failure) Is this a current diagnosis for this admission?: YesPlan: Patient appears to be euvolemic currently. (3) COPD exacerbation Is this a current diagnosis for this admission?: YesPlan: Continues to improve with steroids and nebulizers. (4) Anemia of chronic disease Is this a current diagnosis for this admission?: YesPlan: Hemoglobin remained stable. (5) Bladder outflow obstruction Is this a current diagnosis for this admission?: YesPlan: Patient's Blake catheter had to be replaced because he was unable to urinate spontaneously (6) Chronic kidney disease, stage 3 Is this a current diagnosis for this admission?: YesPlan: Patient is improving with Lasix. (7) Hyperlipidemia Qualifiers: Hyperlipidemia type: unspecified Qualified Code(s): E78.5 - Hyperlipidemia, unspecified Is this a current diagnosis for this admission?: Yes (8) Anxiety Is this a current diagnosis for this admission?: YesPlan: Stable (9) Coronary artery disease Qualifiers: Coronary Disease-Associated Artery/Lesion type: [place] artery [place] vs. transplanted heart: [place] heart Associated angina: angina presence unspecified Qualified Code(s): I25.10 - Atherosclerotic heart disease of [place] coronary artery without angina pectoris Is this a current diagnosis for this admission?: YesPlan: Denies any chest pain. (10) Diabetes type 2, controlled Is this a current diagnosis for this admission?: YesPlan: Blood sugars have all been less than 200. (11) Essential hypertension Is this a current diagnosis for this admission?: YesPlan: Blood pressures have actually been on the lower side. (12) GERD (gastroesophageal reflux disease) Qualifiers: Esophagitis presence: without esophagitis Qualified Code(s): K21.9 - Gastro-esophageal reflux disease without esophagitis Is this a current diagnosis for this admission?: Yes (13) History of implantable cardioverter-defibrillator (ICD) placement Is this a current diagnosis for this admission?: Yes (14) Afib Qualifiers: Atrial fibrillation type: chronic Qualified Code(s): I48.2 - Chronic atrial fibrillation Is this a current diagnosis for this admission?: YesPlan: Patient is in a regular rhythm today. - Time Time Spent with patient: 25-34 minutes - Inpatient Certification Medical Necessity: Need Close Monitoring Due to Risk of Patient Decompensation
[2016-05-21] MEDS: TAMSULOSIN HCL 0.4 MG CAP.SR.24H PO SCH (17:55)
[2016-05-22] MEDS: IPRATROPIUM/ALBUTEROL 0.5-2.5 MG/3 ML AMPUL NEB SCH ×3 (02:48→13:27)
[2016-05-22] MEDS: ACETAMINOPHEN 325 MG TABLET PO PRN ×2 (04:24→10:03)
[2016-05-22] MEDS: MIDODRINE HCL 5 MG TABLET PO SCH ×3 (05:47→17:46)
[2016-05-22] MEDS: GABAPENTIN 300 MG CAPSULE PO SCH ×2 (05:47→13:38)
--- NOTE | 2016-05-22 09:47 | PDOC TRANSFER SUMMARY ---
General - Admit/Disc Date/PCP Admission Date/Primary Care Provider: 05/15/16 14:00 KEDAR MACKENZIE MD Discharge Date: 05/22/16 - Discharge Diagnosis (1) Chronic hypoxemic respiratory failure Is this a current diagnosis for this admission?: YesSummary: Secondary to CHF and COPD exacerbations (2) Acute on chronic combined systolic and diastolic CHF (congestive heart failure) Is this a current diagnosis for this admission?: Yes (3) COPD exacerbation Is this a current diagnosis for this admission?: YesSummary: Acute COPD exacerbation treated with steroids and antibiotics. Patient has completed a course of Levaquin and Rocephin. (4) Anemia of chronic disease Is this a current diagnosis for this admission?: Yes (5) Bladder outflow obstruction Is this a current diagnosis for this admission?: YesSummary: Patient requires a Blake catheter. It was removed during this hospitalization he was unable to void on his own. (6) Chronic kidney disease, stage 3 Is this a current diagnosis for this admission?: Yes (7) Hyperlipidemia Is this a current diagnosis for this admission?: Yes (8) Anxiety Is this a current diagnosis for this admission?: Yes (9) Coronary artery disease Is this a current diagnosis for this admission?: Yes (10) Diabetes type 2, controlled Is this a current diagnosis for this admission?: Yes (11) Essential hypertension Is this a current diagnosis for this admission?: Yes (12) GERD (gastroesophageal reflux disease) Is this a current diagnosis for this admission?: Yes (13) History of implantable cardioverter-defibrillator (ICD) placement Is this a current diagnosis for this admission?: Yes (14) Afib Is this a current diagnosis for this admission?: Yes - Additional Information Discharge Diet: Cardiac Discharge Activity: Activity As Tolerated, Balance Activity w/Rest, Weigh Daily Home Medications: Apixaban [Eliquis 5 mg Tablet] 5 mg PO BID 05/15/16 Aspirin [Aspirin 81 mg Chewable Tablet] 81 mg PO DAILY 05/15/16 Budesonide/Formoterol Fumarate [Symbicort HFA 80-4.5 mcg Inhaler 6.9 gm] 2 puff IH BID 05/15/16 Digoxin [Lanoxin 0.125 mg Tablet] 0.125 mg PO DAILY 05/15/16 Docusate Sodium [Colace 100 mg Capsule] 100 mg PO BID 05/15/16 Eplerenone [Inspra 25 mg Tablet] 25 mg PO BID 05/15/16 Ferrous Sulfate [Iron] 325 mg PO DAILY 05/15/16 Furosemide [Lasix] 60 mg PO QAM 05/15/16 Gabapentin [Neurontin 300 mg Capsule] 300 mg PO Q8 05/15/16 Ipratropium/Albuterol Sulfate [Duoneb 3 ml Ampul] 1 vial NEB Q6 05/15/16 Lactulose [Constulose 10 gm/15 mL Oral Solution] 20 mg PO TID 05/15/16 Lisinopril [Prinivil 2.5 mg Tablet] 2.5 mg PO DAILY 05/15/16 Metoprolol Tartrate [Lopressor 25 mg Tablet] 12.5 mg PO DAILY 05/15/16 Midodrine HCl 10 mg PO TID 05/15/16 Omeprazole 20 mg PO BID 05/15/16 Potassium Chloride [Klor-Con 10 Meq Tablet.sa] 20 meq PO DAILY 05/15/16 Tamsulosin HCl [Flomax 0.4 mg Cap.sr] 0.4 mg PO QPM 05/15/16 Aspirin [Aspirin 81 mg Chewable Tablet] 81 mg PO DAILY@1100 tab.chew 05/22/16 Prednisone [Deltasone 20 mg Tablet] 10 mg PO DAILY@1100 #39 tablet 05/22/16 History of Present Illness Admission Date/PCP: 05/15/16 14:00 KEDAR MACKENZIE MD History of Present Illness: TUTU MURRAY is a 75 year old male, history of COPD, systolic heart failure with ejection fraction of 25%, was brought to the emergency room because of fever, associated chest congestion, and questionable seizure activity. The patient was found to be hypoxic as well, reportedly with O2 saturation in the 80s. In the emergency room he was placed on BiPAP, chest x-ray revealed infiltrates bilaterally, WBC mildly elevated. Patient reportedly with some wheezing and chest congestion possible pneumonia and therefore broad-spectrum antibiotics were begun. He was likewise hypotensive and therefore boluses of fluids were given. Patient was then referred for admission. When the patient was evaluated patient reports that he is not sick. He denies being short of breath, having fever or cough, nor any chest congestion. Likewise he denies having any chest pain at all. There is no diarrhea, no dysuria urgency or frequency. He has chronic constipation, as well as BPH. He is a poor historian and therefore reliability is in question. Information obtained from prior records and emergency room transfer form. Hospital Course Hospital Course: 75 old gentleman who presented with acute respiratory failure. This was secondary to a combination of acute congestive heart failure as well as acute COPD exacerbation. The patient was treated with steroids and nebulizers for the COPD exacerbation and also was treated with Rocephin and Levaquin. The patient had negative cultures and his respiratory status improved from his COPD. The patient's acute congestive heart failure was treated with IV Lasix initially and this also has improved. He continues to have some minimal wheezing which he has at his baseline. He reports he feels that he is back to his usual self and requests to go back to [facility] from where he came from. The patient was hospitalized also has had problems with bladder outlet obstruction. He had a Blake catheter placed and we attempted to stop this and he was unable to urinate once his Blake catheter was DC'd. This was reinserted and he can follow-up with urology as an outpatient. Patient also has chronic renal failure stage III which has been stable. His other medical problems all were stable during this hospitalization. Physical Exam Vital Signs: Temp Pulse Resp BP Pulse Ox 98.0 F 82 24 H 100/59 L 94 05/22/16 07:20 05/22/16 09:22 05/22/16 07:20 05/22/16 07:20 05/22/16 07:20 Pulse Oximeter Continuous Start: 05/15/16 14: 00 Freq: RTQ4 Status: Active Document 05/22/16 04:00 STI (Rec: 05/22/16 04:04 STI [id number]) Pulse Oximetry Assessment Equipment Usage Equipment Standby Continuous SpO2 Machine # [id number] Intake & Output 05/21/16 05/22/16 05/23/16 06:59 06:59 06:59 Intake Total 1180 1135 Output Total 5868 8660 Balance -1820 -2283 Weight 90.2 kg 86.8 kg General appearance: PRESENT: no acute distress Eye exam: PRESENT: conjunctiva pink. ABSENT: scleral icterus Mouth exam: PRESENT: moist, tongue midline Neck exam: ABSENT: JVD Respiratory exam: PRESENT: rhonchi - Coarse rhonchi bilaterally.. ABSENT: rales , wheezes Cardiovascular exam: PRESENT: RRR. ABSENT: diastolic murmur, rubs, systolic murmur GI/Abdominal exam: PRESENT: normal bowel sounds, soft. ABSENT: distended, guarding, mass, organolmegaly, rebound, tenderness Extremities exam: ABSENT: calf tenderness, clubbing, pedal edema Neurological exam: PRESENT: alert, awake, oriented to person, oriented to place , oriented to time, oriented to situation, CN II-XII grossly intact. ABSENT: motor sensory deficit Psychiatric exam: PRESENT: appropriate affect Results Laboratory Results: 05/21/16 04:10 05/21/16 04:10 Impressions: KUB X-Ray 05/15/16 00:00 IMPRESSION: NO RADIOGRAPHIC EVIDENCE FOR ACUTE ABDOMINAL DISEASE. Chest X-Ray 05/15/16 07:09 IMPRESSION: CARDIAC ENLARGEMENT. VASCULAR CONGESTION. Transfer Plan - Disposition Transfer Plan: Patient is to be transferred back to [facility] and continue with physical therapy - Time Spent with Patient Time spent with patient: Greater than 30 Minutes Qualifiers PATEINT BEING DISCHARGED WITH ANY OF THE FOLLOWING DIAGNOSIS?: Heart Failure HF Pt being discharged on ACEI for LVEF less than 40%?: Yes HF Pt discharged on evidence-based Beta Mike:: Yes Plan Discharge Plan: Patient is discharged back to [facility] continue with rehabilitation physical therapy Time Spent: Greater than 30 Minutes
[2016-05-22] MEDS: BUDESONIDE/FORMOTEROL 80-4.5 MCG 60 PUFF/6.9 GM MDI IH SCH ×2 (09:58→17:47)
[2016-05-22] MEDS: CEFTRIAXONE 1 GM/D5W RTU 50 ML IV SCH (09:59)
[2016-05-22] MEDS: POTASSIUM CHLORIDE 10 MEQ TABLET.SA PO SCH (10:05)
[2016-05-22] MEDS: DIGOXIN 0.125 MG TABLET PO SCH (10:06)
[2016-05-22] MEDS: DOCUSATE SODIUM 100 MG CAPSULE PO SCH ×2 (10:06→17:46)
[2016-05-22] MEDS: LEVOFLOXACIN 750 MG TABLET PO SCH (10:06)
[2016-05-22] MEDS: FERROUS SULFATE 325 MG TABLET PO SCH (10:06)
[2016-05-22] MEDS: ASPIRIN 81 MG TABLET, CHEWABLE PO SCH (11:45)
[2016-05-22] MEDS: PREDNISONE 20 MG TABLET PO SCH (11:46)
[2016-05-22] MEDS: EPLERENONE 25 MG TABLET PO SCH ×2 (11:50→17:46)
[2016-05-22] MEDS: FUROSEMIDE 40 MG TABLET PO SCH (11:50)
[2016-05-22] MEDS: METOPROLOL TARTRATE 25 MG TABLET PO SCH (11:50)
[2016-05-22] MEDS: LACTULOSE SYRUP 20 GM/30 ML UDCUP PO SCH ×3 (12:01→17:52)
[2016-05-22] MEDS: TAMSULOSIN HCL 0.4 MG CAP.SR.24H PO SCH (17:46)
[2016-05-22 19:55] VITALS: BP 93/44
== END 2016-05-22 20:31 | DRG 189 ==
LOC: ER 06:57 → UNDOADMIN 12:59 → EH 12:59 → 3W 20:52
DX: J96.01 Acute respiratory failure with hypoxia (principal); I50.43 Acute on chronic combined systolic (congestive) and diastolic (congestive) heart failure; I13.0 Hypertensive heart and chronic kidney disease with heart failure and stage 1 through stage 4 chronic kidney disease, or unspecified chronic kidney disease; I42.9 Cardiomyopathy, unspecified; D68.8 Other specified coagulation defects; N13.8 Other obstructive and reflux uropathy; I95.9 Hypotension, unspecified; D63.8 Anemia in other chronic diseases classified elsewhere; E11.22 Type 2 diabetes mellitus with diabetic chronic kidney disease; I48.2 Chronic atrial fibrillation; N18.3 Chronic kidney disease, stage 3 (moderate); N40.1 Benign prostatic hyperplasia with lower urinary tract symptoms; R33.8 Other retention of urine; R31.0 Gross hematuria; F41.9 Anxiety disorder, unspecified; I25.10 Atherosclerotic heart disease of native coronary artery without angina pectoris; Z79.01 Long term (current) use of anticoagulants; Z79.82 Long term (current) use of aspirin; Z79.51 Long term (current) use of inhaled steroids; Z79.899 Other long term (current) drug therapy; Z87.891 Personal history of nicotine dependence; Z95.810 Presence of automatic (implantable) cardiac defibrillator
CPT/HCPCS: 36415; 71010; 74000; 80048; 80053; 80162; 81001; 82803; 82962; 83605; 83735; 84132; 84439; 84443; 85025; 85027; 85610; 87040; 87045; 87086; 87205; 87493; 93005; 93010; 94640; 94660; 94762; 96365; 99285; J0696; J1940; J1956; J2210; J2405; J2930; J3370; J3480; J3490; J7030; J7512; J7620; L0172

== ENCOUNTER 2016-05-25 22:49 | Inpatient (IN) | payer MEDICARE ==
--- NOTE | 2016-05-25 23:22 | ER Document Report ---
ED General - General Stated Complaint: HIP PAIN Notes: Patient is a 75-year-old male was brought in to the ER due to complaints of falling about twice at the [facility] living. He denies any pain however the reports possible hip pain via the paramedics. He is on liquids. He does have a pacemaker no history of A. fib. He does have a history of some encephalopathy and therefore history is limited.. Patient currently says he has no pain. No other complaints at this time. TRAVEL OUTSIDE OF THE [place] IN LAST 30 DAYS: No - Related Data Allergies/Adverse Reactions: lorazepam [From Ativan] Adverse Reaction (Verified 05/22/15 20:52) Past Medical History - Social History Smoking Status: Unknown if Ever Smoked Frequency of alcohol use: None Drug Abuse: None Family History: CAD, COPD - Past Medical History Cardiac Medical History: Reports: Hx Atrial Fibrillation, Hx Congestive Heart Failure, Hx Coronary Artery Disease, Hx Hypercholesterolemia, Hx Hypertension Denies: Hx Heart Attack, Hx Peripheral Vascular Disease, Hx Pulmonary Embolism, Hx Heart Murmur Pulmonary Medical History: Reports: Hx Bronchitis, Hx COPD - COPD, Hx Pneumonia Denies: Hx Asthma, Hx Respiratory Failure, Hx Sleep Apnea, Hx Tuberculosis Neurological Medical History: Reports: Hx Seizures - Last time 3 to 4 yrs ago. Denies: Hx Cerebrovascular Accident Endocrine Medical History: Reports: Hx Diabetes Mellitus Type 2 Renal/ Medical History: Reports: Hx Benign Prostatic Hyperplasia Malignancy Medical History: Denies Hx Lung Cancer GI Medical History: Reports: Hx Ulcer - age 30. Denies: Hx Crohn's Disease, Hx Gastroesophageal Reflux Disease, Hx Hiatal Hernia, Hx Irritable Bowel, Hx Liver Failure Musculoskeltal Medical History: Reports Hx Arthritis - All over, Denies Hx Fibromyalgia, Denies Hx Multiple Sclerosis, Denies Hx Muscular Dystrophy Psychiatric Medical History: Denies: Hx Bipolar Disorder, Hx Dementia, Hx Depression, Hx Post Traumatic Stress Disorder, Hx Schizophrenia Traumatic Medical History: Denies: Hx Fractures Infectious Medical History: Denies: Hx HIV Past Surgical History: Reports: Hx Adenoidectomy, Hx Cardiac Surgery - pacemaker defibulator, Hx Internal Defibrillator, Hx Orthopedic Surgery - right knee, left hip, Hx Pacemaker - See Pacemaker Checklist, Hx Tonsillectomy. Denies: Hx Appendectomy, Hx Bowel Surgery, Hx Cholecystectomy, Hx Colostomy, Hx Coronary Artery Bypass Graft, Hx Gastric Bypass Surgery, Hx Herniorrhaphy - Immunizations Hx Diphtheria, Pertussis, Tetanus Vaccination: Yes Hx Pneumococcal Vaccination: 11/22/14 Review of Systems - Review of Systems Notes: My Normal Review Basic REVIEW OF SYSTEMS: CONSTITUTIONAL : Denies fever, chills, or sweats. Denies recent illness. CARDIOVASCULAR: Denies chest pain. RESPIRATORY: Denies cough, cold, or chest congestion. Denies shortness of breath, difficulty breathing, or wheezing. GASTROINTESTINAL: Denies abdominal pain. Denies nausea, vomiting, or diarrhea. Denies constipation. Last BM: MUSCULOSKELETAL: Denies neck or back pain or joint pain or swelling. SKIN: Denies rash or skin lesions. NEUROLOGICAL: Denies altered mental status or loss of consciousness. Denies headache. ALL OTHER SYSTEMS REVIEWED AND NEGATIVE. Physical Exam - Vital signs Vitals: Temp Pulse Resp BP Pulse Ox 98.3 F 77 20 82/58 L 95 05/25/16 22:57 05/25/16 22:57 05/25/16 22:57 05/25/16 22:57 05/25/16 22:57 - Notes Notes: General Appearance: Well nourished, alert, cooperative, no acute distress, no obvious discomfort.. Vitals: reviewed, See vital signs table. Head: no swelling or tenderness to the head Eyes: PERRL, EOMI, Conjuctiva clear Mouth: No decreasd moisture Neck: Supple, no neck tenderness, Lungs: No wheezing, No rales, No rhonci, No accessory muscle use, good air exchange bilaterally. Heart: Normal rate, Regular rythm, No murmur, no rub Abdomen: Normal BS, soft, No rigidity, No abdominal tenderness, No guarding, no rebound, no abdominal masses, no organomegaly Extremities: strength 5/5 in all extremities, good pulses in all extremities, no swelling or tenderness in the extremities with exception of some obvious pain when I place the right hip through range of motion., No pain when I placed the other 3 extremities thru range of motion. 3+ bilateral lower extremity edema. Skin: warm, dry, appropriate color, no rash Neuro: , oriented x 2, normal affect, responds appropriately to some questions. At times will garble speech and other times will speak clearly. Patient moves all 4 extremities without difficulty. Cranial nerves II through XII are intact. Course - Re-evaluation Re-evalutation: 05/26/16 03:17 Patient first arrived he was at times hard to get to talk at times very sleepy and somnolent. He was showing some improvement and we will discharge him home. When his kidney attempt to discharge and his blood pressure started dropping into the 80s and he started having periods of confusion all over again. I decided to do blood work. Chest x-ray shows his feet developing pneumonia and continued CHF and his urinalysis shows infection with indwelling catheter and his white count of 18,000. Suspect that his worsening altered mental status probably due to sepsis. We are trying to start antibiotics and the patient patient is now more awake and alert but infuse. He is yelling at staff and saying that we never talked with him earlier and that we have not been treating him. This is completely untrue as we have been treating the whole time he is here and during workup of why he fell on why he's been confused. He does have a history of intermittent encephalopathy according to his records. I do feel that he does need treatment as I think without antibiotics and treatment he'll become more septic and sick and he worse. I did try and contact his daughter. No bony is answering the phone. I have left a message. Patient obviously is not in his right state of mind and is confused and I did not think can make appropriate medical judgments to leave AMA. I feel that in the best interest of the patient I will sedate him so that we can treat him appropriately. We will give him a small dose of Haldol to try to keep him calm so that we can give him appropriate treatment to get him better. - Vital Signs Vital signs: Temp Pulse Resp BP Pulse Ox 98.3 F 77 20 82/58 L 95 05/25/16 22:57 05/25/16 22:57 05/25/16 22:57 05/25/16 22:57 05/25/16 22:57 - Laboratory Result Diagrams: 05/25/16 23:16 05/25/16 23:16 Laboratory results interpreted by me: 05/25/16 05/25/16 05/26/16 23:16 23:16 01:50 WBC 18.1 H RBC 3.44 L Hgb 9.6 L Hct 29.6 L RDW 19.2 H Seg Neuts % (Manual) 84 H Lymphocytes % (Manual) 4 L Metamyelocytes % 1 H Abs Neuts (Manual) 16.1 H Sodium 133.4 L Chloride 88 L Carbon Dioxide 34 H BUN 25 H Calcium 7.1 L Total Bilirubin 1.6 H Direct Bilirubin 0.9 H Alkaline Phosphatase 203 H Total Protein 5.5 L Albumin 2.6 L Urine Protein 100 H Urine Blood MODERATE H Urine Urobilinogen 4.0 H Ur Leukocyte Esterase LARGE H - EKG Interpretation by Me Additional EKG results interpreted by me: 05/25/16 23:21 EKG is reviewed and interpreted by me. EKG shows a paced rhythm with rate of 92 bpm. PVC approximately every third beat. VT interval is within normal range. QRS duration QTc interval's are prolonged. Old EKG for comparison is from 05/15/2016. - Transfer of Care Notes: 05/26/16 04:13 Patient does have appears be a possible pneumonia on chest x-ray. He also has UTI with indwelling Blake catheter. His white count is 18.6. Due to his intermittent hypotension in conjunction with evidence of infection we will treat him as sepsis. He was recent admitted and therefore will cover for hospital-acquired infections. Patient again became very agitated and started become more encephalopathic and therefore had to be sedated with Haldol. Patient's was never fully oriented or appropriate and of to make his own decisions and I do not think can sign out against medical advice or refuse treatment based on his encephalopathy and confusion. Dictation of this chart was performed using voice recognition software; therefore, there may be some unintended grammatical errors. Discharge - Discharge Clinical Impression: Bilateral lower extremity edema, UTI (urinary tract infection), Pneumonia Fall Qualifiers: Encounter type: initial encounter Qualified Code(s): W19.XXXA - Unspecified fall, initial encounter Condition: Good Disposition: HOME, SELF-CARE Admitting Provider: Hospitalist Unit Admitted: IMCU Additional Instructions: Please return to the ER immediately if Mr. Valadez has difficulty breathing, chest pain, fevers, or feels unwell. Please follow up closely with your primary care doctor in 1-2 days for close reevaluation.
[2016-05-26] MEDS ORDERED: FUROSEMIDE INJ/PF 20 MG/2 ML SDV IV ONE (00:46)
[2016-05-26 01:59] LABS: ALANINE AMINOTRANSFERASE 35 U/L (21-72); ALBUMIN 2.6 g/dL (3.5-5.0); ALKALINE PHOSPHATASE 203 U/L (38-126); ANION GAP 11 (5-19); ASPARTATE AMINO TRANSFERASE 17 U/L (17-59); BILIRUBIN,DIRECT 0.9 mg/dL (0.0-0.4); BILIRUBIN,TOTAL 1.6 mg/dL (0.2-1.3); BLOOD UREA NITROGEN 25 mg/dL (7-20); CARBON DIOXIDE 34 mmol/L (22-30); CHLORIDE 88 mmol/L (98-107); CREATININE RESULT 0.83 mg/dL (0.52-1.25); GLUCOSE 106 mg/dL (75-110); POTASSIUM 4.2 mmol/L (3.6-5.0); SODIUM 133.4 mmol/L (137-145); TOTAL PROTEIN 5.5 g/dL (6.3-8.2)
[2016-05-26 02:06] LABS: APPEARANCE,URINE CLOUDY; BILIRUBIN,URINE NEGATIVE (NEGATIVE); GLUCOSE, URINE NEGATIVE (NEGATIVE); KETONES,URINE NEGATIVE (NEGATIVE); LEUKOCYTE ESTERASE,URINE LARGE (NEGATIVE); NITRITE,URINE NEGATIVE (NEGATIVE); PROTEIN,URINE 100 mg/dL (NEGATIVE); URINE SPECIFIC GRAVITY 1.013
[2016-05-26 02:07] LABS: CALCIUM 7.1 mg/dL (8.4-10.2)
[2016-05-26 02:08] LABS: HEMATOCRIT 29.6 % (37.9-51.0); HEMOGLOBIN 9.6 g/dL (13.5-17.0); HGB HCT DIFFERENCE -0.8; MEAN CORPUSCULAR HEMOGLOBIN 27.8 pg (27.0-33.4); MEAN CORPUSCULAR HGB CONC 32.3 g/dL (32.0-36.0); MEAN CORPUSCULAR VOLUME 86 fl (80-97); RED BLOOD COUNT 3.44 10^6/uL (4.35-5.55); RED CELL DISTRIBUTION WIDTH 19.2 % (11.5-14.0); WHITE BLOOD COUNT 18.1 10^3/uL (4.0-10.5)
[2016-05-26 02:20] LABS: BAND NEUTROPHILS % (MANUAL) 4 % (3-5); BASOPHILS % (MANUAL) 0 % (0-2); EOSINOPHILS % (MANUAL) 0 % (0-6); LYMPHOCYTES % (MANUAL) 4 % (13-45); NUCLEATED RED BLOOD CELLS 1 /100 WBC (0); TOTAL CELLS COUNTED 100
[2016-05-26 02:21] LABS: ANISOCYTOSIS 2+; OVALOCYTES SLIGHT; POIKILOCYTOSIS SLIGHT; POLYCHROMASIA SLIGHT; TOXIC VACUOLATION PRESENT
[2016-05-26] MEDS ORDERED: CEFTRIAXONE INJ 1000 MG VIAL IV ONE (02:23)
[2016-05-26] MEDS ORDERED: LEVOFLOXACIN 750 MG/D5W RTU 150 ML IV ONE (03:15)
[2016-05-26] MEDS ORDERED: HALOPERIDOL LACTATE INJ 5 MG/1 ML VIAL IM ONE ×2 (03:15→04:07)
[2016-05-26] MEDS ORDERED: PIPERACILLIN/TAZOBACTAM 3.375 GM VIAL IV ONE (04:07)
[2016-05-26] MEDS ORDERED: GUAIFENESIN SYRP 200 MG/10 ML UDC PO PRN (04:42)
--- NOTE | 2016-05-26 04:55 | PDOC H&P ---
History of Present Illness Admission Date/PCP: 05/26/16 04:37 KEDAR MACKENZIE MD Patient complains of: Falls History of Present Illness: TUTU MURRAY is a 75 year old male with an extensive past medical history including end-stage congestive heart failure with an ejection fraction of 25% pressor dependent in addition to biventricular pacemaker, coronary artery disease, atrial fibrillation, COPD with persistent tobacco abuse, recurrent encephalopathy, recurrent aspiration pneumonia, and dementia with sundowning and agitation. Just discharged from [facility] 5 days ago for pneumonia and returns after a fall workup does not reveal acute injury however he is hypotensive and short of breath with leukocytosis of 18,000 and a chest x- ray with a right upper lobe infiltrate increased from previous. He started on empiric antibiotics referred to the hospitalist for admission. Patient is delirious and refuses interaction with M.D. or staff after receiving IV Haldol from the emergency room provider. Past Medical History Cardiac Medical History: Reports: Atrial Fibrillation, Congestive Heart Failure , Coronary Artery Disease, Hyperlipidema, Hypertension Denies: Myocardial Infarction, Peripheral Vascular Disease, Pulmonary Embolism, Heart Murmur Pulmonary Medical History: Reports: Bronchitis, Chronic Obstructive Pulmonary Disease (COPD) - COPD, Pneumonia Denies: Asthma, Respiratory Failure, Sleep Apnea, Tuberculosis Neurological Medical History: Reports: Seizures - Last time 3 to 4 yrs ago Endocrine Medical History: Reports: Diabetes Mellitus Type 2 Renal/ Medical History: Malignancy Medical History: Denies: Lung Cancer GI Medical History: Denies: Crohn's Disease, Gastroesophageal Reflux Disease, Hiatal Hernia Musculoskeltal Medical History: Reports: Arthritis - All over Denies: Fibromyalgia Psychiatric Medical History: Reports: Dementia, Tobacco Dependency Denies: Bipolar Disorder, Depression, Post Traumatic Stress Disorder Hematology: Reports: Anemia Infectious Medical History: Denies: HIV Past Surgical History Past Surgical History: Reports: Internal Defibrillator, Orthopedic Surgery - right knee, left hip, Pacemaker - See Pacemaker Checklist, Tonsillectomy Denies: Appendectomy, Cholecystectomy, Colostomy, Coronary Artery Bypass Graft, Gastric Bypass Surgery, Herniorrhaphy Social History Information Source: [facility] Records Lives with: Sn[facility] Smoking Status: Unknown if Ever Smoked Frequency of Alcohol Use: None Hx Recreational Drug Use: No Drugs: None Hx Prescription Drug Abuse: No - Advance Directive Resuscitation Status: Do Not Resuscitate Family History Family History: CAD, COPD Parental Family History Reviewed: Yes Children Family History Reviewed: Yes Sibling(s) Family History Reviewed.: Yes Medication/Allergy Home Medications: Apixaban [Eliquis 5 mg Tablet] 5 mg PO BID 05/15/16 Aspirin [Aspirin 81 mg Chewable Tablet] 81 mg PO DAILY 05/15/16 Budesonide/Formoterol Fumarate [Symbicort HFA 80-4.5 mcg Inhaler 6.9 gm] 2 puff IH BID 05/15/16 Digoxin [Lanoxin 0.125 mg Tablet] 0.125 mg PO DAILY 05/15/16 Docusate Sodium [Colace 100 mg Capsule] 100 mg PO BID 05/15/16 Eplerenone [Inspra 25 mg Tablet] 25 mg PO BID 05/15/16 Ferrous Sulfate [Iron] 325 mg PO DAILY 05/15/16 Furosemide [Lasix] 60 mg PO QAM 05/15/16 Gabapentin [Neurontin 300 mg Capsule] 300 mg PO Q8 05/15/16 Ipratropium/Albuterol Sulfate [Duoneb 3 ml Ampul] 1 vial NEB Q6 05/15/16 Lactulose [Constulose 10 gm/15 mL Oral Solution] 20 mg PO TID 05/15/16 Lisinopril [Prinivil 2.5 mg Tablet] 2.5 mg PO DAILY 05/15/16 Metoprolol Tartrate [Lopressor 25 mg Tablet] 12.5 mg PO DAILY 05/15/16 Midodrine HCl 10 mg PO TID 05/15/16 Omeprazole 20 mg PO BID 05/15/16 Potassium Chloride [Klor-Con 10 Meq Tablet.sa] 20 meq PO DAILY 05/15/16 Tamsulosin HCl [Flomax 0.4 mg Cap.sr] 0.4 mg PO QPM 05/15/16 Aspirin [Aspirin 81 mg Chewable Tablet] 81 mg PO DAILY@1100 tab.chew 05/22/16 Prednisone [Deltasone 20 mg Tablet] 10 mg PO DAILY@1100 #39 tablet 05/22/16 Allergies/Adverse Reactions: lorazepam [From Ativan] Adverse Reaction (Verified 05/22/15 20:52) Review of Systems ROS unobtainable: Due to mental status Physical Exam Vital Signs: Temp Pulse Resp BP Pulse Ox 98.3 F 77 20 82/58 L 95 05/25/16 22:57 05/25/16 22:57 05/25/16 22:57 05/25/16 22:57 05/25/16 22:57 General appearance: PRESENT: disheveled, other - Uncooperative and belligerent. ABSENT: cooperative Head exam: PRESENT: atraumatic, normocephalic Eye exam: PRESENT: conjunctiva pink, EOMI, PERRLA. ABSENT: scleral icterus Ear exam: PRESENT: normal external ear exam Mouth exam: PRESENT: moist, tongue midline Neck exam: ABSENT: carotid bruit, JVD, lymphadenopathy, thyromegaly Respiratory exam: PRESENT: accessory muscle use, crackles, decreased breath sounds, prolonged expiratory phas, symmetrical, tachypnea. ABSENT: chest wall tenderness Cardiovascular exam: PRESENT: RRR. ABSENT: diastolic murmur, rubs, systolic murmur Pulses: PRESENT: normal dorsalis pedis pul Vascular exam: PRESENT: normal capillary refill GI/Abdominal exam: PRESENT: normal bowel sounds, soft. ABSENT: distended, guarding, mass, organolmegaly, rebound, tenderness Rectal exam: PRESENT: deferred Extremities exam: PRESENT: full ROM, +2 edema. ABSENT: calf tenderness, clubbing, pedal edema Neurological exam: PRESENT: altered, CN II-XII grossly intact Psychiatric exam: PRESENT: agitated Skin exam: PRESENT: abrasion - Multiple skin tears to hands and forearms Results Impressions: Cervical Spine CT 05/25/16 23:15 IMPRESSION: CHRONIC DEGENERATIVE CHANGES. NO ACUTE FINDINGS. Head CT 05/25/16 23:15 IMPRESSION: No acute intracranial findings. Hip/Pelvis X-Ray 05/25/16 23:15 IMPRESSION: No fracture identified. Chest X-Ray 05/26/16 01:41 IMPRESSION: Increasing parenchymal opacities in the right upper lobe. Basilar opacities are stable. Vascular congestion. Assessment & Plan - Diagnosis (1) Pneumonia Is this a current diagnosis for this admission?: YesPlan: Concern for recurrent aspiration despite G-tube placement, unclear compliance with nothing by mouth status. Empiric antibiotics, albuterol Atrovent, flutter valve and incentive spirometry as tolerated follow-up a.m. labs and cultures (2) Acute on chronic combined systolic and diastolic CHF (congestive heart failure) Is this a current diagnosis for this admission?: YesPlan: Continue outpatient regiment avoid volume overload (3) Altered mental status Qualifiers: Altered mental status type: unspecified Qualified Code(s): R41.82 - Altered mental status, unspecified Is this a current diagnosis for this admission?: YesPlan: Given the patient's end-stage comorbidities of heart and lung failure and recurrent aspiration with G-tube. I strongly recommend discharge to hospice as recurrent acute-care hospitalizations are unlikely to significantly improve his quality of life - Time Time Spent: 50 to 70 Minutes
[2016-05-26 06:06] LABS: CREATINE KINASE MB 1.52 ng/mL (<4.55)
[2016-05-26 06:10] LABS: TROPONIN I 0.043 ng/mL
[2016-05-26] MEDS: GABAPENTIN 300 MG CAPSULE PO SCH ×3 (07:44→21:09)
[2016-05-26] MEDS: IPRATROPIUM/ALBUTEROL 0.5-2.5 MG/3 ML AMPUL NEB SCH ×3 (08:01→19:54)
[2016-05-26] MEDS ORDERED: CEFEPIME 2 GM/D5W RTU 50 ML IV SCH (10:00)
[2016-05-26] MEDS ORDERED: BUDESONIDE/FORMOTEROL 80-4.5 MCG 60 PUFF/6.9 GM MDI IH SCH (10:00)
[2016-05-26] MEDS: CEFEPIME HCL 2 GM in DEXTROSE 5%-WATER 100 ML IV SCH ×2 (10:11→21:09)
[2016-05-26] MEDS: APIXABAN 5 MG TABLET PO SCH ×2 (10:15→17:17)
[2016-05-26] MEDS: LACTULOSE SYRUP 20 GM/30 ML UDCUP PO SCH ×3 (10:16→17:18)
[2016-05-26] MEDS: DOCUSATE SODIUM 100 MG CAPSULE PO SCH ×2 (10:17→17:18)
[2016-05-26] MEDS: FERROUS SULFATE 325 MG TABLET PO SCH (10:18)
[2016-05-26] MEDS: ASPIRIN 81 MG TABLET, CHEWABLE PO SCH (10:18)
[2016-05-26] MEDS: MIDODRINE HCL 5 MG TABLET PO SCH ×3 (10:19→17:18)
[2016-05-26] MEDS: DIGOXIN 0.125 MG TABLET PO SCH (10:19)
[2016-05-26] MEDS: BUDESONIDE/FORMOTEROL 80-4.5 MCG 60 PUFF/6.9 GM MDI IH SCH ×2 (10:21→21:09)
[2016-05-26] MEDS: EPLERENONE 25 MG TABLET PO SCH ×2 (10:21→17:19)
[2016-05-26] MEDS: LISINOPRIL 5 MG TABLET PO SCH (10:21)
[2016-05-26 12:11] LABS: CREATINE KINASE MB 1.66 ng/mL (<4.55); TROPONIN I 0.044 ng/mL
--- NOTE | 2016-05-26 13:11 | EKG REPORT ---
SEVERITY:- ABNORMAL ECG - VENTRICULAR-PACED COMPLEXES : Confirmed by: Jennifer Duvall MD 26-May-2016 13:10:00
--- NOTE | 2016-05-26 15:22 | PDOC PROGRESS REPORT ---
Subjective Progress Note for:: 05/26/16 Subjective:: She is on a BiPAP. He will open his eyes and respond however he is confused. Physical Exam Vital Signs: Temp Pulse Resp BP Pulse Ox 98.2 F 83 22 H 90/51 L 93 05/26/16 11:31 05/26/16 14:00 05/26/16 13:48 05/26/16 11:31 05/26/16 11:31 Intake & Output 05/25/16 05/26/16 05/27/16 06:59 06:59 06:59 Intake Total 0 Output Total 1000 Balance -1000 Weight 90.7 kg General appearance: PRESENT: mild distress Eye exam: PRESENT: conjunctiva pink. ABSENT: scleral icterus Mouth exam: PRESENT: dry mucosa Neck exam: ABSENT: JVD Respiratory exam: PRESENT: rales - Bibasilar rales, wheezes - Bilateral respiratory wheezes. ABSENT: rhonchi Cardiovascular exam: PRESENT: tachycardia. ABSENT: diastolic murmur, rubs, systolic murmur GI/Abdominal exam: PRESENT: normal bowel sounds, soft. ABSENT: distended, guarding, mass, organolmegaly, rebound, tenderness Extremities exam: PRESENT: pedal edema - Trace edema.. ABSENT: calf tenderness , clubbing Neurological exam: PRESENT: awake, oriented to person, CN II-XII grossly intact. ABSENT: oriented to place, oriented to time, oriented to situation, motor sensory deficit Psychiatric exam: PRESENT: flat affect Skin exam: PRESENT: dry, intact, warm. ABSENT: cyanosis, rash Results Laboratory Results: 05/26/16 05/26/16 05/26/16 05:15 05:15 11:03 Creatine Kinase < 20 L 36 L CK-MB (CK-2) 1.52 Troponin I 0.043 NT-Pro-B Natriuret Pep 9280 H 05/26/16 11:03 Creatine Kinase CK-MB (CK-2) 1.66 Troponin I 0.044 NT-Pro-B Natriuret Pep Impressions: Cervical Spine CT 05/25/16 23:15 IMPRESSION: CHRONIC DEGENERATIVE CHANGES. NO ACUTE FINDINGS. Head CT 05/25/16 23:15 IMPRESSION: No acute intracranial findings. Hip/Pelvis X-Ray 05/25/16 23:15 IMPRESSION: No fracture identified. Chest X-Ray 05/26/16 01:41 IMPRESSION: Increasing parenchymal opacities in the right upper lobe. Basilar opacities are stable. Vascular congestion. Assessment & Plan - Diagnosis (1) Pneumonia Is this a current diagnosis for this admission?: YesPlan: The patient is a resident at a custodial facility. Patient has been on cefepime for pneumonia and we will continue with that. We'll continue with oxygen and nebulizers. At the time I examined the patient he was requiring BiPAP because of respiratory difficulties. (3) Acute on chronic combined systolic and diastolic CHF (congestive heart failure) Is this a current diagnosis for this admission?: YesPlan: Given his pneumonia it's somewhat difficult to ascertain his volume status. (4) Altered mental status Qualifiers: Altered mental status type: unspecified Qualified Code(s): R41.82 - Altered mental status, unspecified Is this a current diagnosis for this admission?: Yes (5) Anemia Qualifiers: Anemia type: iron deficiency Iron deficiency anemia type: unspecified iron deficiency Qualified Code(s): D50.9 - Iron deficiency anemia, unspecified (7) Anxiety Is this a current diagnosis for this admission?: YesPlan: he open his eyes but does not appear anxious (8) BPH (benign prostatic hyperplasia) Qualifiers: Prostatic enlargement morphology: unspecified morphology Lower urinary tract symptom presence: presence of symptoms unspecified Qualified Code(s ): N40.0 - Benign prostatic hyperplasia without lower urinary tract symptoms Is this a current diagnosis for this admission?: YesPlan: Patient requires a Blake catheter as he is unable to urinate on his own from previous admission. (9) Bladder outflow obstruction Is this a current diagnosis for this admission?: YesPlan: Continue with Blake catheter (10) Coronary artery disease Qualifiers: Coronary Disease-Associated Artery/Lesion type: [place] artery [place] vs. transplanted heart: [place] heart Associated angina: angina presence unspecified Qualified Code(s): I25.10 - Atherosclerotic heart disease of [place] coronary artery without angina pectoris Is this a current diagnosis for this admission?: YesPlan: No complaints chest pain. (11) Diabetes type 2, controlled Is this a current diagnosis for this admission?: YesPlan: We'll start on sliding scale insulin. (12) Essential hypertension Is this a current diagnosis for this admission?: Yes (13) GERD (gastroesophageal reflux disease) Qualifiers: Esophagitis presence: without esophagitis Qualified Code(s): K21.9 - Gastro-esophageal reflux disease without esophagitis Is this a current diagnosis for this admission?: Yes (14) Hyperlipidemia Qualifiers: Hyperlipidemia type: unspecified Qualified Code(s): E78.5 - Hyperlipidemia, unspecified Is this a current diagnosis for this admission?: Yes (15) Seizure disorder Is this a current diagnosis for this admission?: Yes (16) Afib Qualifiers: Atrial fibrillation type: chronic Qualified Code(s): I48.2 - Chronic atrial fibrillation Is this a current diagnosis for this admission?: YesPlan: Continue with Jennifer (17) Morbid obesity with BMI of 40.0-44.9, adult Is this a current diagnosis for this admission?: Yes - Time Time Spent with patient: 25-34 minutes - Inpatient Certification Medical Necessity: Need Close Monitoring Due to Risk of Patient Decompensation, Need for IV Antibiotics
[2016-05-26 18:04] LABS: CREATINE KINASE MB 1.06 ng/mL (<4.55)
[2016-05-26 18:06] LABS: TROPONIN I 0.04 ng/mL
[2016-05-27] MEDS ORDERED: ALBUTEROL SULFATE 0.083% NEB 2.5 MG/3 ML AMPUL NEB PRN (04:41)
[2016-05-27] MEDS: GABAPENTIN 300 MG CAPSULE PO SCH ×3 (05:10→22:57)
[2016-05-27 05:18] LABS: ABSOLUTE BASOPHILS # (AUTO) 0.1 10^3/uL (0.0-0.2); ABSOLUTE EOSINOPHILS # (AUTO) 0.1 10^3/uL (0.0-0.6); ABSOLUTE LYMPHOCYTES (AUTO) 0.9 10^3/uL (0.5-4.7); ABSOLUTE MONOCYTES (AUTO) 1.2 10^3/uL (0.1-1.4); ABSOLUTE NEUT (AUTO) 13.9 10^3/uL (1.7-8.2); BASOPHILS % (AUTO) 0.5 % (0-2); EOSINOPHILS % (AUTO) 0.5 % (0-6); HEMOGLOBIN 9.1 g/dL (13.5-17.0); HGB HCT DIFFERENCE -0.7; LYMPHOCYTES % (AUTO) 5.7 % (13-45); MEAN CORPUSCULAR HEMOGLOBIN 28.4 pg (27.0-33.4); MEAN CORPUSCULAR HGB CONC 32.4 g/dL (32.0-36.0); MEAN CORPUSCULAR VOLUME 88 fl (80-97); MONOCYTES % (AUTO) 7.2 % (3-13); RED CELL DISTRIBUTION WIDTH 19.6 % (11.5-14.0); SEGMENTED NEUTROPHILS % (AUTO) 86.1 % (42-78); WHITE BLOOD COUNT 16.1 10^3/uL (4.0-10.5)
[2016-05-27 05:21] LABS: ANION GAP 11 (5-19); BLOOD UREA NITROGEN 15 mg/dL (7-20); CARBON DIOXIDE 31 mmol/L (22-30); CHLORIDE 93 mmol/L (98-107); CREATININE RESULT 0.63 mg/dL (0.52-1.25); GLUCOSE 63 mg/dL (75-110)
[2016-05-27 05:57] LABS: CALCIUM 6.8 mg/dL (8.4-10.2)
[2016-05-27] MEDS: IPRATROPIUM/ALBUTEROL 0.5-2.5 MG/3 ML AMPUL NEB SCH ×3 (08:10→20:43)
[2016-05-27] MEDS: ASPIRIN 81 MG TABLET, CHEWABLE PO SCH (09:21)
[2016-05-27] MEDS: MIDODRINE HCL 5 MG TABLET PO SCH ×3 (09:21→17:20)
[2016-05-27] MEDS: DOCUSATE SODIUM 100 MG CAPSULE PO SCH ×2 (09:21→17:19)
[2016-05-27] MEDS: APIXABAN 5 MG TABLET PO SCH ×2 (09:22→17:18)
[2016-05-27] MEDS: DIGOXIN 0.125 MG TABLET PO SCH (09:22)
[2016-05-27] MEDS: FERROUS SULFATE 325 MG TABLET PO SCH (09:22)
[2016-05-27] MEDS: LACTULOSE SYRUP 20 GM/30 ML UDCUP PO SCH ×3 (09:23→17:18)
[2016-05-27] MEDS: BUDESONIDE/FORMOTEROL 80-4.5 MCG 60 PUFF/6.9 GM MDI IH SCH ×2 (09:23→22:56)
[2016-05-27] MEDS: EPLERENONE 25 MG TABLET PO SCH ×2 (09:24→17:19)
--- NOTE | 2016-05-27 10:00 | PDOC PROGRESS REPORT ---
Subjective Progress Note for:: 05/27/16 Subjective:: Patient is alert and oriented 3. He denies any complaints. He is off of BiPAP doing well from a respiratory standpoint. Physical Exam Vital Signs: Temp Pulse Resp BP Pulse Ox 98.0 F 72 18 97/52 L 94 05/27/16 07:32 05/27/16 08:10 05/27/16 08:10 05/27/16 07:32 05/27/16 08:10 Intake & Output 05/26/16 05/27/16 05/28/16 06:59 06:59 06:59 Intake Total 483 Output Total 1999 Balance -1517 Weight 90.7 kg 93.7 kg General appearance: PRESENT: no acute distress Eye exam: PRESENT: conjunctiva pink. ABSENT: scleral icterus Mouth exam: PRESENT: moist, tongue midline Neck exam: ABSENT: carotid bruit, JVD, lymphadenopathy, thyromegaly Respiratory exam: PRESENT: clear to auscultation nic. ABSENT: rales, rhonchi, wheezes Cardiovascular exam: PRESENT: RRR. ABSENT: diastolic murmur, rubs, systolic murmur GI/Abdominal exam: PRESENT: normal bowel sounds, soft. ABSENT: distended, guarding, mass, organolmegaly, rebound, tenderness Extremities exam: ABSENT: calf tenderness, clubbing, pedal edema Neurological exam: PRESENT: alert, awake, oriented to person, oriented to place , oriented to time, oriented to situation, CN II-XII grossly intact. ABSENT: motor sensory deficit Psychiatric exam: PRESENT: appropriate affect Skin exam: PRESENT: dry, intact, warm. ABSENT: cyanosis, rash Results Laboratory Results: 05/27/16 04:31 05/27/16 04:31 05/27/16 05/27/16 05/27/16 04:31 04:31 04:31 WBC 16.1 H RBC 3.20 L Hgb 9.1 L Hct 28.0 L MCV 88 MCH 28.4 MCHC 32.4 RDW 19.6 H Plt Count 194 Seg Neutrophils % 86.1 H Lymphocytes % 5.7 L Monocytes % 7.2 Eosinophils % 0.5 Basophils % 0.5 Absolute Neutrophils 13.9 H Absolute Lymphocytes 0.9 Absolute Monocytes 1.2 Absolute Eosinophils 0.1 Absolute Basophils 0.1 Sodium 135.0 L Potassium 4.0 Chloride 93 L Carbon Dioxide 31 H Anion Gap 11 BUN 15 Creatinine 0.63 Est GFR ( Amer) > 60 Est GFR (Non-Af Amer) > 60 Glucose 63 L Calcium 6.8 L* Albumin 2.3 L 05/26/16 05/26/16 05/26/16 05:15 05:15 11:03 Creatine Kinase < 20 L 36 L CK-MB (CK-2) 1.52 Troponin I 0.043 NT-Pro-B Natriuret Pep 9280 H 05/26/16 05/26/16 05/26/16 11:03 17:10 17:10 Creatine Kinase 29 L CK-MB (CK-2) 1.66 1.06 Troponin I 0.044 0.040 NT-Pro-B Natriuret Pep Impressions: Cervical Spine CT 05/25/16 23:15 IMPRESSION: CHRONIC DEGENERATIVE CHANGES. NO ACUTE FINDINGS. Head CT 05/25/16 23:15 IMPRESSION: No acute intracranial findings. Hip/Pelvis X-Ray 05/25/16 23:15 IMPRESSION: No fracture identified. Chest X-Ray 05/26/16 01:41 IMPRESSION: Increasing parenchymal opacities in the right upper lobe. Basilar opacities are stable. Vascular congestion. Assessment & Plan - Diagnosis (1) Pneumonia Is this a current diagnosis for this admission?: YesPlan: The patient is a resident at a residential facility. Patient has been on cefepime for pneumonia and we will continue with that. We'll continue with oxygen and nebulizers. Respiratory status is much improved from yesterday. (2) Acute hypoxemic respiratory failure Is this a current diagnosis for this admission?: Yes (3) Acute on chronic combined systolic and diastolic CHF (congestive heart failure) Is this a current diagnosis for this admission?: YesPlan: He is euvolemic today on exam (4) Altered mental status Qualifiers: Altered mental status type: unspecified Qualified Code(s): R41.82 - Altered mental status, unspecified Is this a current diagnosis for this admission?: YesPlan: Resolved. He is back to his baseline. (5) Anemia Qualifiers: Anemia type: iron deficiency Iron deficiency anemia type: unspecified iron deficiency Qualified Code(s): D50.9 - Iron deficiency anemia, unspecified Is this a current diagnosis for this admission?: Yes (6) COPD exacerbation Is this a current diagnosis for this admission?: Yes (7) Anxiety Is this a current diagnosis for this admission?: YesPlan: Stable (8) BPH (benign prostatic hyperplasia) Qualifiers: Prostatic enlargement morphology: unspecified morphology Lower urinary tract symptom presence: presence of symptoms unspecified Qualified Code(s ): N40.0 - Benign prostatic hyperplasia without lower urinary tract symptoms Is this a current diagnosis for this admission?: YesPlan: Patient requires a Blake catheter as he is unable to urinate on his own from previous admission. (9) Bladder outflow obstruction Is this a current diagnosis for this admission?: YesPlan: Continue with Blake catheter (10) Coronary artery disease Qualifiers: Coronary Disease-Associated Artery/Lesion type: [place] artery [place] vs. transplanted heart: [place] heart Associated angina: angina presence unspecified Qualified Code(s): I25.10 - Atherosclerotic heart disease of [place] coronary artery without angina pectoris Is this a current diagnosis for this admission?: YesPlan: No complaints chest pain. (11) Diabetes type 2, controlled Is this a current diagnosis for this admission?: YesPlan: Continue sliding scale insulin. (12) Essential hypertension Is this a current diagnosis for this admission?: Yes (13) GERD (gastroesophageal reflux disease) Qualifiers: Esophagitis presence: without esophagitis Qualified Code(s): K21.9 - Gastro-esophageal reflux disease without esophagitis Is this a current diagnosis for this admission?: Yes (14) Hyperlipidemia Qualifiers: Hyperlipidemia type: unspecified Qualified Code(s): E78.5 - Hyperlipidemia, unspecified Is this a current diagnosis for this admission?: Yes (15) Seizure disorder Is this a current diagnosis for this admission?: Yes (16) Afib Qualifiers: Atrial fibrillation type: chronic Qualified Code(s): I48.2 - Chronic atrial fibrillation Is this a current diagnosis for this admission?: YesPlan: Continue with Eliquis (17) Morbid obesity with BMI of 40.0-44.9, adult Is this a current diagnosis for this admission?: Yes - Time Time Spent with patient: 25-34 minutes - Inpatient Certification Medical Necessity: Need for IV Antibiotics - Plan Summary Plan Summary: If he continues to improve we can discharge back to residential tomorrow.
[2016-05-27] MEDS: CEFEPIME HCL 2 GM in DEXTROSE 5%-WATER 100 ML IV SCH ×2 (10:50→22:57)
[2016-05-27] MEDS: LISINOPRIL 5 MG TABLET PO SCH (10:50)
[2016-05-28] MEDS: ACETAMINOPHEN 325 MG TABLET PO PRN ×2 (02:13→05:52)
[2016-05-28 05:29] LABS: ANION GAP 10 (5-19); BLOOD UREA NITROGEN 15 mg/dL (7-20); CARBON DIOXIDE 32 mmol/L (22-30); CHLORIDE 90 mmol/L (98-107); CREATININE RESULT 0.63 mg/dL (0.52-1.25); GLUCOSE 104 mg/dL (75-110); POTASSIUM 4.1 mmol/L (3.6-5.0); SODIUM 132.1 mmol/L (137-145)
[2016-05-28 05:31] LABS: HEMOGLOBIN 8.9 g/dL (13.5-17.0); HGB HCT DIFFERENCE -0.3; MEAN CORPUSCULAR HGB CONC 33.2 g/dL (32.0-36.0); MEAN CORPUSCULAR VOLUME 87 fl (80-97); RED BLOOD COUNT 3.09 10^6/uL (4.35-5.55); RED CELL DISTRIBUTION WIDTH 20.8 % (11.5-14.0); WHITE BLOOD COUNT 12.4 10^3/uL (4.0-10.5)
[2016-05-28 05:40] LABS: CALCIUM 6.8 mg/dL (8.4-10.2)
[2016-05-28] MEDS: GABAPENTIN 300 MG CAPSULE PO SCH (05:51)
[2016-05-28 05:55] LABS: BAND NEUTROPHILS % (MANUAL) 1 % (3-5); BASOPHILS % (MANUAL) 0 % (0-2); EOSINOPHILS % (MANUAL) 0 % (0-6); LYMPHOCYTES % (MANUAL) 10 % (13-45); NUCLEATED RED BLOOD CELLS 1 /100 WBC (0); TOTAL CELLS COUNTED 100
[2016-05-28 05:56] LABS: ANISOCYTOSIS 2+; TOXIC VACUOLATION PRESENT
[2016-05-28] MEDS: IPRATROPIUM/ALBUTEROL 0.5-2.5 MG/3 ML AMPUL NEB SCH (08:13)
[2016-05-28 08:33] VITALS: BP 117/48
[2016-05-28] MEDS: MIDODRINE HCL 5 MG TABLET PO SCH (09:12)
[2016-05-28] MEDS: FERROUS SULFATE 325 MG TABLET PO SCH (09:12)
[2016-05-28] MEDS: ASPIRIN 81 MG TABLET, CHEWABLE PO SCH (09:12)
[2016-05-28] MEDS: LACTULOSE SYRUP 20 GM/30 ML UDCUP PO SCH (09:12)
[2016-05-28] MEDS: APIXABAN 5 MG TABLET PO SCH (09:13)
[2016-05-28] MEDS: DOCUSATE SODIUM 100 MG CAPSULE PO SCH (09:13)
[2016-05-28] MEDS: DIGOXIN 0.125 MG TABLET PO SCH (09:13)
[2016-05-28] MEDS: BUDESONIDE/FORMOTEROL 80-4.5 MCG 60 PUFF/6.9 GM MDI IH SCH (09:15)
[2016-05-28] MEDS: EPLERENONE 25 MG TABLET PO SCH (09:15)
[2016-05-28] MEDS: LISINOPRIL 5 MG TABLET PO SCH (09:19)
[2016-05-28] MEDS: CEFEPIME HCL 2 GM in DEXTROSE 5%-WATER 100 ML IV SCH (09:19)
--- NOTE | 2016-05-28 09:53 | PDOC TRANSFER SUMMARY ---
General - Admit/Disc Date/PCP Admission Date/Primary Care Provider: 05/26/16 04:42 KEDAR MACKENZIE MD Discharge Date: 05/28/16 - Discharge Diagnosis (1) Pneumonia Is this a current diagnosis for this admission?: YesSummary: Negative cultures. Patient was initially treated with cefepime. Will be sent back to the [place] [facility] on Bactrim 2 tablets twice a day. (2) Acute hypoxemic respiratory failure Is this a current diagnosis for this admission?: YesSummary: Secondary to pneumonia, congestive heart failure, COPD. (3) Acute on chronic combined systolic and diastolic CHF (congestive heart failure) Is this a current diagnosis for this admission?: Yes (4) Altered mental status Is this a current diagnosis for this admission?: YesSummary: Patient was initially encephalopathic secondary to the infection but this has resolved. (5) Anemia Is this a current diagnosis for this admission?: Yes (6) COPD exacerbation Is this a current diagnosis for this admission?: Yes (7) Anxiety Is this a current diagnosis for this admission?: Yes (8) BPH (benign prostatic hyperplasia) Is this a current diagnosis for this admission?: Yes (9) Bladder outflow obstruction Is this a current diagnosis for this admission?: Yes (10) Coronary artery disease Is this a current diagnosis for this admission?: Yes (11) Diabetes type 2, controlled Is this a current diagnosis for this admission?: Yes (12) Essential hypertension Is this a current diagnosis for this admission?: Yes (13) GERD (gastroesophageal reflux disease) Is this a current diagnosis for this admission?: Yes (14) Hyperlipidemia Is this a current diagnosis for this admission?: Yes (15) Seizure disorder Is this a current diagnosis for this admission?: Yes (16) Afib Is this a current diagnosis for this admission?: Yes (17) Morbid obesity with BMI of 40.0-44.9, adult Is this a current diagnosis for this admission?: Yes - Additional Information Resuscitation Status: Do Not Resuscitate Discharge Diet: Cardiac Discharge Activity: Activity As Tolerated Home Medications: Acetaminophen [Tylenol 325 mg Tablet] 650 mg PO Q4HP PRN tablet 05/28/16 Albuterol Sulfate [Ventolin 0.083% Neb 2.5 mg/3 mL Ampul] 2.5 mg NEB RTQ4HP PRN vial.neb 05/28/16 Apixaban [Eliquis 5 mg Tablet] 5 mg PO BID tablet 05/28/16 Aspirin [Aspirin 81 mg Chewable Tablet] 81 mg PO DAILY tab.chew 05/28/16 Budesonide/Formoterol Fumarate [Symbicort HFA 80-4.5 mcg Inhaler 6.9 gm] 2 puff IH Q12 inhaler 05/28/16 Digoxin [Lanoxin 0.125 mg Tablet] 0.125 mg PO DAILY tablet 05/28/16 Docusate Sodium [Colace 100 mg Capsule] 100 mg PO BID capsule 05/28/16 Eplerenone [Inspra 25 mg Tablet] 25 mg PO BID tablet 05/28/16 Ferrous Sulfate [Feosol 325 mg Tablet] 325 mg PO DAILY tablet 05/28/16 Gabapentin [Neurontin 300 mg Capsule] 300 mg PO Q8 capsule 05/28/16 Ipratropium/Albuterol Sulfate [Duoneb 3 ml Ampul] 3 ml NEB [id number] vial.neb 08/08 Lactulose [Cephulac Syrup 20 gm/30 ml Udcup] 20 gm PO TID udc 05/28/16 Lisinopril [Prinivil 5 mg Tablet] 2.5 mg PO DAILY tablet 05/28/16 Midodrine HCl [Proamatine 5 mg Tablet] 10 mg PO TID tablet 05/28/16 Sulfamethoxazole/Trimethoprim [Bactrim Ds Tablet] 2 each PO BID #40 tablet 05/28 History of Present Illness Admission Date/PCP: 05/26/16 04:42 KEDAR MACKENZIE MD History of Present Illness: TUTU MURRAY is a 75 year old male with an extensive past medical history including end-stage congestive heart failure with an ejection fraction of 25% pressor dependent in addition to biventricular pacemaker, coronary artery disease, atrial fibrillation, COPD with persistent tobacco abuse, recurrent encephalopathy, recurrent aspiration pneumonia, and dementia with sundowning and agitation. Just discharged from [facility] days ago for pneumonia and returns after a fall workup does not reveal acute injury however he is hypotensive and short of breath with leukocytosis of 18,000 and a chest x- ray with a right upper lobe infiltrate increased from previous. He started on empiric antibiotics referred to the hospitalist for admission. Patient is delirious and refuses interaction with M.D. or staff after receiving IV Haldol from the emergency room provider. Hospital Course Hospital Course: 75-year-old gentleman who presented with confusion and fever and was found to have a pneumonia. This developed since his discharge back to [facility] several days prior to this admission. Patient was started empirically on cefepime and he quickly showed improvement in his mental status. The patient's cultures all were negative. Patient was treated for nosocomial pneumonia however given the cultures were negative it was uncertain as to what would be the best choice for oral antibiotics and a decision was made to place him on Bactrim DS 2 tabs twice a day given the risk for MRSA. The patient had improvement in his respiratory status was no longer requiring BiPAP. Patient's confusion also resolved. He was euvolemic on the day of discharge he does have a history of congestive heart failure. Physical Exam Vital Signs: Temp Pulse Resp BP Pulse Ox 97.6 F 80 18 117/48 L 96 05/28/16 07:57 05/28/16 08:13 05/28/16 08:13 05/28/16 07:57 05/28/16 08:13 Intake & Output 05/27/16 05/28/16 05/29/16 06:59 06:59 06:59 Intake Total 483 1504 Output Total 2000 1700 Balance -1517 -196 Weight 93.7 kg 93.2 kg General appearance: PRESENT: no acute distress Eye exam: PRESENT: conjunctiva pink. ABSENT: scleral icterus Mouth exam: PRESENT: moist, tongue midline Neck exam: ABSENT: JVD Respiratory exam: PRESENT: rhonchi - Coarse rhonchi bilaterally.. ABSENT: rales , wheezes Cardiovascular exam: PRESENT: RRR. ABSENT: diastolic murmur, rubs, systolic murmur GI/Abdominal exam: PRESENT: normal bowel sounds, soft. ABSENT: distended, guarding, mass, organolmegaly, rebound, tenderness Extremities exam: ABSENT: calf tenderness, clubbing, pedal edema Neurological exam: PRESENT: alert, awake, oriented to person, oriented to place , oriented to time, oriented to situation, CN II-XII grossly intact. ABSENT: motor sensory deficit Psychiatric exam: PRESENT: appropriate affect Skin exam: PRESENT: dry, intact, warm. ABSENT: cyanosis, rash Results Laboratory Results: 05/28/16 04:41 05/28/16 04:41 05/28/16 05/28/16 04:41 04:41 WBC 12.4 H RBC 3.09 L Hgb 8.9 L Hct 27.0 L MCV 87 MCH 29.0 MCHC 33.2 RDW 20.8 H Plt Count 173 Seg Neutrophils % Not Reportable Lymphocytes % Not Reportable Monocytes % Not Reportable Eosinophils % Not Reportable Basophils % Not Reportable Absolute Neutrophils Not Reportable Absolute Lymphocytes Not Reportable Absolute Monocytes Not Reportable Absolute Eosinophils Not Reportable Absolute Basophils Not Reportable Sodium 132.1 L Potassium 4.1 Chloride 90 L Carbon Dioxide 32 H Anion Gap 10 BUN 15 Creatinine 0.63 Est GFR ( Amer) > 60 Est GFR (Non-Af Amer) > 60 Glucose 104 Calcium 6.8 L* 05/26/16 05/26/16 05/26/16 05:15 05:15 11:03 Creatine Kinase < 20 L 36 L CK-MB (CK-2) 1.52 Troponin I 0.043 NT-Pro-B Natriuret Pep 9280 H 05/26/16 05/26/16 05/26/16 11:03 17:10 17:10 Creatine Kinase 29 L CK-MB (CK-2) 1.66 1.06 Troponin I 0.044 0.040 NT-Pro-B Natriuret Pep Impressions: Cervical Spine CT 05/25/16 23:15 IMPRESSION: CHRONIC DEGENERATIVE CHANGES. NO ACUTE FINDINGS. Head CT 05/25/16 23:15 IMPRESSION: No acute intracranial findings. Hip/Pelvis X-Ray 05/25/16 23:15 IMPRESSION: No fracture identified. Chest X-Ray 05/26/16 01:41 IMPRESSION: Increasing parenchymal opacities in the right upper lobe. Basilar opacities are stable. Vascular congestion. Transfer Plan - Disposition Transfer Plan: Patient is transferred back to [facility]. He will require continuous oxygen 2 L per nasal cannula. - Time Spent with Patient Time spent with patient: Greater than 30 Minutes Qualifiers PATEINT BEING DISCHARGED WITH ANY OF THE FOLLOWING DIAGNOSIS?: Heart Failure HF Pt being discharged on ACEI for LVEF less than 40%?: Yes HF Pt being discharged on ARBS for LVEF less than 40%?: Yes HF Pt discharged on evidence-based Beta Mike:: Yes Plan Discharge Plan: Patient be transferred back to [facility] today. Follow primary care in 1-2 weeks. Time Spent: Greater than 30 Minutes
== END 2016-05-28 11:49 | DRG 190 ==
LOC: ER 22:49 → EH 05-26 04:37 → UNDOADMIN 05-26 04:37 → EH 05-26 04:42 → 3W 05-26 06:15
PROVIDERS: ADMIT Internal Medicine; ATTEND Internal Medicine
PROC: 5A09457 Assistance with Respiratory Ventilation, 24-96 Consecutive Hours, Continuous Positive Airway Pressure (ICD-10-PCS; principal; 2016-05-26)
PROC: 3E0F73Z Introduction of Anti-inflammatory into Respiratory Tract, Via Natural or Artificial Opening (ICD-10-PCS; 2016-05-27)
DX: J44.0 Chronic obstructive pulmonary disease with (acute) lower respiratory infection (principal); J18.9 Pneumonia, unspecified organism; J96.01 Acute respiratory failure with hypoxia; I50.43 Acute on chronic combined systolic (congestive) and diastolic (congestive) heart failure; G93.40 Encephalopathy, unspecified; Z68.41 Body mass index [BMI] 40.0-44.9, adult; D50.9 Iron deficiency anemia, unspecified; J44.9 Chronic obstructive pulmonary disease, unspecified; F41.9 Anxiety disorder, unspecified; N40.0 Benign prostatic hyperplasia without lower urinary tract symptoms; N32.0 Bladder-neck obstruction; I25.10 Atherosclerotic heart disease of native coronary artery without angina pectoris; E11.9 Type 2 diabetes mellitus without complications; I10 Essential (primary) hypertension; K21.9 Gastro-esophageal reflux disease without esophagitis; E78.5 Hyperlipidemia, unspecified; G40.909 Epilepsy, unspecified, not intractable, without status epilepticus; I48.2 Chronic atrial fibrillation; F03.90 Unspecified dementia, unspecified severity, without behavioral disturbance, psychotic disturbance, mood disturbance, and anxiety; M19.90 Unspecified osteoarthritis, unspecified site; E66.01 Morbid (severe) obesity due to excess calories; W18.30XA Fall on same level, unspecified, initial encounter; Y92.129 Unspecified place in nursing home as the place of occurrence of the external cause; Z66 Do not resuscitate; Z79.899 Other long term (current) drug therapy; Z95.0 Presence of cardiac pacemaker; Z79.82 Long term (current) use of aspirin; Z88.8 Allergy status to other drugs, medicaments and biological substances; Z83.6 Family history of other diseases of the respiratory system; Z82.49 Family history of ischemic heart disease and other diseases of the circulatory system
CPT/HCPCS: 36415; 70450; 71010; 72125; 80048; 80053; 81001; 82040; 82550; 82553; 83880; 84484; 85025; 87040; 93005; 93010; 94640; 94660; 96372; 99285; J0692; J1630; J1956; J3490; J7620

== ENCOUNTER 2016-06-08 16:48 | Inpatient (IN) | payer MEDICARE ==
[2016-06-08] MEDS ORDERED: NOREPINEPHRINE BITARTRATE INJ/PF 4 MG/4 ML SDV IV ONE (17:17)
[2016-06-08] MEDS ORDERED: NORMAL SALINE 1000 ML 1,000 ML IV ONE (17:36)
[2016-06-08 17:51] LABS: PROTHROMBIN TIME 22.9 SEC (11.4-15.4)
[2016-06-08 17:52] LABS: PARTIAL THROMBOPLASTIN TIME 56.3 SEC (23.5-35.8)
[2016-06-08 17:54] LABS: ALANINE AMINOTRANSFERASE 23 U/L (21-72); ALBUMIN 2.9 g/dL (3.5-5.0); ALKALINE PHOSPHATASE 162 U/L (38-126); ANION GAP 14 (5-19); ASPARTATE AMINO TRANSFERASE 33 U/L (17-59); BILIRUBIN,TOTAL 1.5 mg/dL (0.2-1.3); BLOOD UREA NITROGEN 29 mg/dL (7-20); CALCIUM 8.3 mg/dL (8.4-10.2); CARBON DIOXIDE 27 mmol/L (22-30); CHLORIDE 87 mmol/L (98-107); CREATINE KINASE 25 U/L (55-170); CREATININE RESULT 1.94 mg/dL (0.52-1.25); GLUCOSE 111 mg/dL (75-110); LIPASE 28.3 U/L (23-300); POTASSIUM 5.2 mmol/L (3.6-5.0); SODIUM 127.6 mmol/L (137-145); TOTAL PROTEIN 6.7 g/dL (6.3-8.2)
[2016-06-08 18:06] LABS: CREATINE KINASE MB 1.2 ng/mL (<4.55); TROPONIN I 0.031 ng/mL
[2016-06-08] MEDS: DEXTROSE 5%-WATER 250 ML with NOREPINEPHRINE BITARTRATE 4 MG IV PRN ×4 (18:36→23:15)
--- NOTE | 2016-06-08 18:59 | EKG REPORT ---
SEVERITY:- ABNORMAL ECG - VENTRICULAR-PACED RHYTHM : Confirmed by: Anabella Mueller 08-Jun-2016 18:58:43
[2016-06-08] MEDS ORDERED: VANCOMYCIN HCL INJ 1000 MG VIAL IV ONE (19:00)
[2016-06-08] MEDS ORDERED: PIPERACILLIN/TAZOBACTAM 3.375 GM VIAL IV ONE (19:00)
[2016-06-08 19:07] LABS: VENOUS BLOOD HCO3 26.9 mmol/L (20-32); VENOUS BLOOD PCO2 43.2 mmHg (35-63); VENOUS BLOOD PH 7.41 (7.30-7.42)
[2016-06-08 19:12] LABS: ABSOLUTE BASOPHILS # (AUTO) 0.1 10^3/uL (0.0-0.2); ABSOLUTE LYMPHOCYTES (AUTO) 1.1 10^3/uL (0.5-4.7); ABSOLUTE MONOCYTES (AUTO) 1.4 10^3/uL (0.1-1.4); ABSOLUTE NEUT (AUTO) 6.5 10^3/uL (1.7-8.2); BASOPHILS % (AUTO) 0.7 % (0-2); EOSINOPHILS % (AUTO) 0.4 % (0-6); HEMATOCRIT 30.9 % (37.9-51.0); HEMOGLOBIN 10.2 g/dL (13.5-17.0); HGB HCT DIFFERENCE -0.3; LYMPHOCYTES % (AUTO) 11.8 % (13-45); MEAN CORPUSCULAR HEMOGLOBIN 29.7 pg (27.0-33.4); MEAN CORPUSCULAR HGB CONC 33.1 g/dL (32.0-36.0); MEAN CORPUSCULAR VOLUME 90 fl (80-97); MONOCYTES % (AUTO) 15.6 % (3-13); RED BLOOD COUNT 3.44 10^6/uL (4.35-5.55); RED CELL DISTRIBUTION WIDTH 21.2 % (11.5-14.0); SEGMENTED NEUTROPHILS % (AUTO) 71.5 % (42-78); WHITE BLOOD COUNT 9.1 10^3/uL (4.0-10.5)
[2016-06-08 19:18] LABS: AMORPHOUS SEDIMENT,URINE TRACE /HPF; APPEARANCE,URINE SLIGHTLY-CLOUDY; BILIRUBIN,URINE NEGATIVE (NEGATIVE); GLUCOSE, URINE NEGATIVE (NEGATIVE); KETONES,URINE NEGATIVE (NEGATIVE); LEUKOCYTE ESTERASE,URINE LARGE (NEGATIVE); NITRITE,URINE NEGATIVE (NEGATIVE); PROTEIN,URINE NEGATIVE (NEGATIVE); URINE SPECIFIC GRAVITY 1.006; UROBILINOGEN,URINE NEGATIVE mg/dL (<2.0)
--- NOTE | 2016-06-08 19:22 | ER Document Report ---
ED Blood Pressure Problem - General Chief Complaint: Low Blood Pressure Stated Complaint: LOW BLOOD PRESSURE Notes: The patient is a 75-year-old male, past medical history chronic Blake from BPH, CHF (EF 25%, on midodrine and w/ AICD), CAD (on Xarelto), COPD (on home 3LO2), presents from [facility] after his blood pressure was found to be 60/ 30 earlier today. They noticed about 250 mL blood out of his Blake. He was given 1 Liter LR by EMS prior to arrival. Patient is complaining of a cough, but denies abdominal pain, fevers, nausea, vomiting, rash, diarrhea, constipation, chest pain or shortness of breath. TRAVEL OUTSIDE OF THE [place] IN LAST 30 DAYS: No - Related Data Allergies/Adverse Reactions: lorazepam [From Ativan] Adverse Reaction (Verified 05/22/15 20:52) Past Medical History - General Information source: Patient - Social History Smoking Status: Former Smoker Chew tobacco use (# tins/day): No Frequency of alcohol use: None Drug Abuse: None Family History: CAD, COPD Patient has suicidal ideation: No Patient has homicidal ideation: No - Past Medical History Cardiac Medical History: Reports: Hx Atrial Fibrillation, Hx Congestive Heart Failure, Hx Coronary Artery Disease, Hx Hypercholesterolemia, Hx Hypertension Denies: Hx Heart Attack, Hx Peripheral Vascular Disease, Hx Pulmonary Embolism, Hx Heart Murmur Pulmonary Medical History: Reports: Hx Bronchitis, Hx COPD, Hx Pneumonia Denies: Hx Asthma, Hx Respiratory Failure, Hx Sleep Apnea, Hx Tuberculosis Neurological Medical History: Reports: Hx Seizures - Last time 3 to 4 yrs ago. Denies: Hx Cerebrovascular Accident Endocrine Medical History: Reports: Hx Diabetes Mellitus Type 2 Renal/ Medical History: Reports: Hx Benign Prostatic Hyperplasia. Denies: Hx Peritoneal Dialysis Malignancy Medical History: Denies Hx Lung Cancer GI Medical History: Reports: Hx Gastroesophageal Reflux Disease, Hx Ulcer - age 30. Denies: Hx Crohn's Disease, Hx Hiatal Hernia, Hx Irritable Bowel, Hx Liver Failure Musculoskeltal Medical History: Reports Hx Arthritis - All over, Denies Hx Fibromyalgia, Denies Hx Multiple Sclerosis, Denies Hx Muscular Dystrophy Psychiatric Medical History: Reports: Hx Dementia Denies: Hx Bipolar Disorder, Hx Depression, Hx Post Traumatic Stress Disorder , Hx Schizophrenia Traumatic Medical History: Denies: Hx Fractures Infectious Medical History: Denies: Hx HIV Past Surgical History: Reports: Hx Adenoidectomy, Hx Cardiac Surgery - pacemaker defibulator, Hx Internal Defibrillator, Hx Orthopedic Surgery - right knee, left hip, Hx Pacemaker - See Pacemaker Checklist, Hx Tonsillectomy. Denies: Hx Appendectomy, Hx Bowel Surgery, Hx Cholecystectomy, Hx Colostomy, Hx Coronary Artery Bypass Graft, Hx Gastric Bypass Surgery, Hx Herniorrhaphy - Immunizations Hx Diphtheria, Pertussis, Tetanus Vaccination: No Hx Pneumococcal Vaccination: 11/22/14 Review of Systems - Review of Systems Notes: REVIEW OF SYSTEMS: CONSTITUTIONAL: -fevers, -chills EENT: -eye pain, -difficulty swallowing, -nasal congestion CARDIOVASCULAR: -chest pain, -syncope. RESPIRATORY: +cough, -SOB GASTROINTESTINAL: -abdominal pain, -nausea, -vomiting, -diarrhea GENITOURINARY: -dysuria, -hematuria MUSCULOSKELETAL: -back pain, -neck pain SKIN: -rash or skin lesions. HEMATOLOGIC: -easy bruising or bleeding. LYMPHATIC: -swollen, enlarged glands. NEUROLOGICAL: -altered mental status or loss of consciousness, -headache, - neurologic symptoms PSYCHIATRIC: -anxiety, -depression. ALL OTHER SYSTEMS REVIEWED AND NEGATIVE. Physical Exam - Vital signs Vitals: Temp Resp 98.1 F 20 06/08/16 16:50 06/08/16 16:50 - Notes Notes: PHYSICAL EXAMINATION: GENERAL: Elderly-appearing, no acute distress HEAD: Atraumatic, normocephalic. EYES: Pupils equal round and reactive to light, extraocular movements intact, sclera anicteric, conjunctiva are normal. ENT: nares patent, oropharynx clear without exudates. Moist mucous membranes. NECK: Normal range of motion, supple without lymphadenopathy LUNGS: Crackles in right upper lobes, there is trace stress and no tachypnea. HEART: Regular rate and rhythm without murmurs ABDOMEN: Soft, nontender, normoactive bowel sounds. No guarding, no rebound. No masses appreciated. Blake in place with yellow urine in bag and small amount of blood clots. EXTREMITIES: Normal range of motion, no pitting or edema. No cyanosis. NEUROLOGICAL: Cranial nerves grossly intact. Normal speech, normal gait. Normal sensory, motor, and reflex exams. PSYCH: Normal mood, normal affect. SKIN: Superficial skin tears on left forearm. Warm, Dry, normal turgor. Course - Re-evaluation Re-evalutation: Patient is in no respiratory distress on arrival and has no complaints other than a cough. After 30 mL/kg IVF, patient's blood pressure remained 70s/30s. Levophed started initially through large peripheral IV and then switched over to central line after placement. Patient is satting 95% on his normal frequency 3 L nasal cannula. He has a history of COPD. CXR shows hazy densities and right upper lobe. Since he is a senior care patient, will treat for HCAP with Vanc and Zosyn. Patient's creatinine is 1.91, but he has had prior values in the past that were higher. He has hyponatremia and slight hyperkalemia, which may be attributed to adrenal insufficiency. Will provide a dose of hydrocortisone due to the hypotension. Asians hemoglobin is 10.2, which is higher than his prior values. He has not lost a significant amount of blood out of his Blake and he is no longer bleeding out of his Blake. Patient in no distress and his MAPs are staying above 65 on a low-dose norepinephrine drip. Patient requires Inpatient admission for further evaluation and treatment. Code status discussed with patient and he does not want CPR to restart his heart , but he does consent to intubation if needed. - Vital Signs Vital signs: Temp Pulse Resp BP Pulse Ox 99.9 F 18 101/57 L 96 06/08/16 21:18 06/08/16 21:18 06/08/16 21:18 06/08/16 21:18 - Laboratory Result Diagrams: 06/08/16 18:45 06/08/16 16:50 Laboratory results interpreted by me: 06/08/16 06/08/16 06/08/16 16:50 16:50 16:50 RBC Hgb Hct RDW Lymphocytes % Monocytes % PT 22.9 H APTT 56.3 H Sodium 127.6 L Potassium 5.2 H Chloride 87 L BUN 29 H Creatinine 1.94 H Est GFR ( Amer) 41 L Est GFR (Non-Af Amer) 34 L Glucose 111 H Calcium 8.3 L Total Bilirubin 1.5 H Direct Bilirubin 1.0 H Alkaline Phosphatase 162 H Creatine Kinase 25 L NT-Pro-B Natriuret Pep 69948 H Albumin 2.9 L Urine Blood Ur Leukocyte Esterase 06/08/16 06/08/16 18:45 18:45 RBC 3.44 L Hgb 10.2 L Hct 30.9 L RDW 21.2 H Lymphocytes % 11.8 L Monocytes % 15.6 H PT APTT Sodium Potassium Chloride BUN Creatinine Est GFR ( Amer) Est GFR (Non-Af Amer) Glucose Calcium Total Bilirubin Direct Bilirubin Alkaline Phosphatase Creatine Kinase NT-Pro-B Natriuret Pep Albumin Urine Blood LARGE H Ur Leukocyte Esterase LARGE H - Diagnostic Test Radiology reviewed: Image reviewed, Reports reviewed Radiology results interpreted by me: CXR: IMPRESSION: Slightly increased airspace opacities in the lateral aspect of the right upper lobe as well as scattered patchy airspace opacities and both lung bases. No significant effusion. New right IJ central venous catheter with tip overlying the region of the SVC at the level of the terri. No pneumothorax identified. - EKG Interpretation by Me Rhythm: Other - Ventricular-paced rhythm Procedures - Central Line Right Internal jugular Consent obtained: Yes Central line pre-insertion: Sterile PPE donned, Betadine prep applied, Chloraprep applied, Sterile drapes applied Central line size (Fr.): 6 Central line lumen type: Triple Anesthetic type: 1% Lidocaine mL's of anesthesia: 4 Ultrasound guided: Yes CM at insertion site: 16 Line secured with sutures: Yes Central line post-insertion: Blood return from lumens, Biopatch applied, Sutured , Sterile dressing applied, Position confirmed w/ CXR Number of attempts: 1 Complications: No Critical Care Note - Critical Care Note Total time excluding time spent on procedures (mins): 50 Discharge - Discharge Clinical Impression: Septic shock Pneumonia Qualifiers: Pneumonia type: due to unspecified organism Laterality: right Lung location: upper lobe of lung Qualified Code(s): J18.1 - Lobar pneumonia, unspecified organism UTI (urinary tract infection) Qualifiers: Urinary tract infection type: site unspecified Hematuria presence: with hematuria Qualified Code(s): N39.0 - Urinary tract infection, site not specified ; R31.9 - Hematuria, unspecified Condition: Serious Disposition: ADMITTED INPATIENT Admitting Provider: Hospitalist [facility] Admitted: ICU
[2016-06-08] MEDS ORDERED: HYDROCORTISONE SOD SUCCINATE INJ/PF 100 MG/2 ML SDV IV ONE (19:46)
[2016-06-08] MEDS ORDERED: GUAIFENESIN SYRP 200 MG/10 ML UDC PO PRN (21:29)
[2016-06-08] MEDS ORDERED: ACETAMINOPHEN 325 MG TABLET PO PRN (21:29)
[2016-06-08] MEDS ORDERED: IPRATROPIUM/ALBUTEROL 0.5-2.5 MG/3 ML AMPUL NEB PRN (21:29)
[2016-06-08] MEDS: GABAPENTIN 300 MG CAPSULE PO SCH (22:19)
[2016-06-08] MEDS: HYDROCORTISONE SOD SUCCINATE INJ/PF 100 MG/2 ML SDV IV SCH (22:19)
[2016-06-08] MEDS: GUAIFENESIN 600 MG TABLET.SA PO SCH (22:20)
[2016-06-09] MEDS: IPRATROPIUM/ALBUTEROL 0.5-2.5 MG/3 ML AMPUL NEB SCH ×4 (01:47→19:54)
--- NOTE | 2016-06-09 03:21 | PDOC H&P ---
History of Present Illness Admission Date/PCP: 06/08/16 21:30 KEDAR MACKENZIE MD Patient complains of: Shortness of breath History of Present Illness: TUTU MURRAY is a 75 year old male with an extensive past medical history of oxygen dependent COPD, coronary artery disease, atrial fibrillation, systolic heart failure with an ejection fraction of 25% with biventricular pacer , pressor dependent with midodrine 3 times a day, recurrent aspiration pneumonia and encephalopathy. Presents after a likely aspiration event resulting in shortness of breath, a right-sided infiltrate on chest x-ray and profound hypotension unresponsive to IV fluid challenge placed on the Levophed. Former swallow studies have identified he is an aspiration risk and several recent admissions confirm. He is currently with dyspnea and rhonchi audible at bedside and is referred to the hospitalist for admission, refusing nothing by mouth status or NG tube but is adamant about full CODE STATUS. Past Medical History Cardiac Medical History: Reports: Atrial Fibrillation, Congestive Heart Failure , Coronary Artery Disease, Hyperlipidema, Hypertension Denies: Myocardial Infarction, Peripheral Vascular Disease, Pulmonary Embolism, Heart Murmur Pulmonary Medical History: Reports: Bronchitis, Chronic Obstructive Pulmonary Disease (COPD), Pneumonia Denies: Asthma, Respiratory Failure, Sleep Apnea, Tuberculosis Neurological Medical History: Reports: Seizures - Last time 3 to 4 yrs ago Endocrine Medical History: Reports: Diabetes Mellitus Type 2 Renal/ Medical History: Reports: Other - Chronic indwelling Blake for unclear reason Malignancy Medical History: Denies: Lung Cancer GI Medical History: Reports: Gastroesophageal Reflux Disease Denies: Crohn's Disease, Hiatal Hernia Musculoskeltal Medical History: Reports: Arthritis - All over Denies: Fibromyalgia Psychiatric Medical History: Reports: Dementia, Other - Recurrent encephalopathy with acute illness Denies: Bipolar Disorder, Depression, Post Traumatic Stress Disorder Hematology: Reports: Anemia Infectious Medical History: Denies: HIV Past Surgical History Past Surgical History: Reports: Internal Defibrillator, Orthopedic Surgery - right knee, left hip, Pacemaker - See Pacemaker Checklist, Tonsillectomy Denies: Appendectomy, Cholecystectomy, Colostomy, Coronary Artery Bypass Graft, Gastric Bypass Surgery, Herniorrhaphy Social History Information Source: [facility] Records Lives with: Long-Term Smoking Status: Former Smoker Frequency of Alcohol Use: None Hx Recreational Drug Use: No Drugs: None Hx Prescription Drug Abuse: No - Advance Directive Resuscitation Status: Full Code Family History Family History: CAD, COPD Parental Family History Reviewed: Yes Children Family History Reviewed: Yes Sibling(s) Family History Reviewed.: Yes Medication/Allergy Home Medications: Acetaminophen [Tylenol 325 mg Tablet] 650 mg PO Q4HP PRN tablet 05/28/16 Albuterol Sulfate [Ventolin 0.083% Neb 2.5 mg/3 mL Ampul] 2.5 mg NEB RTQ4HP PRN vial.neb 05/28/16 Apixaban [Eliquis 5 mg Tablet] 5 mg PO BID tablet 05/28/16 Aspirin [Aspirin 81 mg Chewable Tablet] 81 mg PO DAILY tab.chew 05/28/16 Budesonide/Formoterol Fumarate [Symbicort HFA 80-4.5 mcg Inhaler 6.9 gm] 2 puff IH Q12 inhaler 05/28/16 Digoxin [Lanoxin 0.125 mg Tablet] 0.125 mg PO DAILY tablet 05/28/16 Docusate Sodium [Colace 100 mg Capsule] 100 mg PO BID capsule 05/28/16 Eplerenone [Inspra 25 mg Tablet] 25 mg PO BID tablet 05/28/16 Ferrous Sulfate [Feosol 325 mg Tablet] 325 mg PO DAILY tablet 05/28/16 Gabapentin [Neurontin 300 mg Capsule] 300 mg PO Q8 capsule 05/28/16 Ipratropium/Albuterol Sulfate [Duoneb 3 ml Ampul] 3 ml NEB [id number] vial.neb 08/08 Lactulose [Cephulac Syrup 20 gm/30 ml Udcup] 20 gm PO TID udc 05/28/16 Lisinopril [Prinivil 5 mg Tablet] 2.5 mg PO DAILY tablet 05/28/16 Midodrine HCl [Proamatine 5 mg Tablet] 10 mg PO TID tablet 05/28/16 Sulfamethoxazole/Trimethoprim [Bactrim Ds Tablet] 2 each PO BID #40 tablet 05/28 Allergies/Adverse Reactions: lorazepam [From Ativan] Adverse Reaction (Verified 05/22/15 20:52) Review of Systems ROS unobtainable: Due to mental status Physical Exam Vital Signs: Temp Pulse Resp BP Pulse Ox 99.0 F 14 101/51 L 95 06/09/16 02:31 06/09/16 02:31 06/09/16 02:31 06/09/16 02:31 General appearance: PRESENT: disheveled, severe distress, thin. ABSENT: obese Head exam: PRESENT: atraumatic, normocephalic Eye exam: PRESENT: conjunctiva pink, EOMI, PERRLA. ABSENT: scleral icterus Ear exam: PRESENT: normal external ear exam Mouth exam: PRESENT: dry mucosa, tongue midline Neck exam: ABSENT: carotid bruit, JVD, lymphadenopathy, thyromegaly Respiratory exam: PRESENT: accessory muscle use, chest wall tenderness, crackles , decreased breath sounds, prolonged expiratory phas, rhonchi, tachypnea, other - Several areas of ecchymosis to the chest wall. ABSENT: unlabored Cardiovascular exam: PRESENT: gallop, RRR, +S1, systolic murmur Pulses: PRESENT: normal dorsalis pedis pul Vascular exam: PRESENT: normal capillary refill GI/Abdominal exam: PRESENT: normal bowel sounds, soft. ABSENT: distended, guarding, mass, organolmegaly, rebound, tenderness Rectal exam: PRESENT: deferred Extremities exam: PRESENT: full ROM. ABSENT: calf tenderness, clubbing, pedal edema Neurological exam: PRESENT: alert, altered, awake, oriented to person, oriented to place, oriented to situation, CN II-XII grossly intact. ABSENT: motor sensory deficit Psychiatric exam: PRESENT: appropriate affect, normal mood. ABSENT: homicidal ideation, suicidal ideation Skin exam: PRESENT: dry, intact, warm, other - Several skin tears and ecchymosis bilateral arms and forearms and back he states occurred as a result of falling. ABSENT: cyanosis, rash Results Impressions: Chest X-Ray 06/08/16 17:35 IMPRESSION: Slightly increased airspace opacities in the lateral aspect of the right upper lobe as well as scattered patchy airspace opacities and both lung bases. No significant effusion. New right IJ central venous catheter with tip overlying the region of the SVC at the level of the terri. No pneumothorax identified. Assessment & Plan - Diagnosis (1) Aspiration pneumonia Qualifiers: Aspiration pneumonia type: unspecified Lung location: unspecified part of lung Is this a current diagnosis for this admission?: YesPlan: Patient refuses nothing by mouth status or NG tube. Empiric antibiotics obtain blood culture albuterol and Atrovent and aspiration precautions (2) Adrenal insufficiency Is this a current diagnosis for this admission?: YesPlan: Profound hypotension likely multifactorial however hyponatremia and hyper Anemia with chronic steroid use. Solu-Cortef initiated (3) End-stage systolic heart failure Is this a current diagnosis for this admission?: YesPlan: Careful volume titration currently mild volume depleted continue supportive measures. Strongly suggest hospice referral (4) Hyponatremia Is this a current diagnosis for this admission?: YesPlan: Secondary to adrenal insufficiency reevaluation of chemistry after saline challenge and Solu-Cortef - Inpatient Certification Medical Necessity: Need Close Monitoring Due to Risk of Patient Decompensation
[2016-06-09] MEDS ORDERED: NOREPINEPHRINE BITARTRATE INJ/PF 4 MG/4 ML SDV IV ONE (04:52)
[2016-06-09 06:31] LABS: ANION GAP 11 (5-19); BLOOD UREA NITROGEN 21 mg/dL (7-20); CALCIUM 8.4 mg/dL (8.4-10.2); CARBON DIOXIDE 26 mmol/L (22-30); CHLORIDE 91 mmol/L (98-107); CREATININE RESULT 1.34 mg/dL (0.52-1.25); GLUCOSE 196 mg/dL (75-110); POTASSIUM 5.2 mmol/L (3.6-5.0); SODIUM 127.6 mmol/L (137-145)
[2016-06-09 06:34] LABS: ARTERIAL BLOOD BASE EXCESS 1.4 mmol/L; ARTERIAL BLOOD O2 SATURATION 92.1 % (94-98)
[2016-06-09 06:47] LABS: ABSOLUTE LYMPHOCYTES (AUTO) 0.4 10^3/uL (0.5-4.7); ABSOLUTE MONOCYTES (AUTO) 0.1 10^3/uL (0.1-1.4); ABSOLUTE NEUT (AUTO) 6.2 10^3/uL (1.7-8.2); BASOPHILS % (AUTO) 0.6 % (0-2); HEMATOCRIT 31.8 % (37.9-51.0); HEMOGLOBIN 10.8 g/dL (13.5-17.0); HGB HCT DIFFERENCE 0.6; LYMPHOCYTES % (AUTO) 5.8 % (13-45); MEAN CORPUSCULAR HEMOGLOBIN 30.6 pg (27.0-33.4); MEAN CORPUSCULAR HGB CONC 34.1 g/dL (32.0-36.0); MEAN CORPUSCULAR VOLUME 90 fl (80-97); RED BLOOD COUNT 3.55 10^6/uL (4.35-5.55); RED CELL DISTRIBUTION WIDTH 20.9 % (11.5-14.0); SEGMENTED NEUTROPHILS % (AUTO) 91.6 % (42-78); WHITE BLOOD COUNT 6.7 10^3/uL (4.0-10.5)
[2016-06-09] MEDS: HYDROCORTISONE SOD SUCCINATE INJ/PF 100 MG/2 ML SDV IV SCH ×3 (06:55→22:47)
[2016-06-09] MEDS: GABAPENTIN 300 MG CAPSULE PO SCH ×3 (06:56→22:47)
[2016-06-09] MEDS ORDERED: APIXABAN 5 MG TABLET PO SCH (10:00)
[2016-06-09] MEDS ORDERED: DOCUSATE SODIUM 100 MG CAPSULE PO SCH (10:00)
[2016-06-09] MEDS ORDERED: LACTULOSE SYRUP 20 GM/30 ML UDCUP PO SCH (10:00)
[2016-06-09] MEDS ORDERED: LEVOFLOXACIN 500 MG/D5W RTU 100 ML IV SCH (10:00)
[2016-06-09] MEDS ORDERED: DIGOXIN 0.125 MG TABLET PO SCH (10:00)
[2016-06-09] MEDS ORDERED: ASPIRIN 81 MG TABLET, CHEWABLE PO SCH (10:00)
[2016-06-09] MEDS: GUAIFENESIN 600 MG TABLET.SA PO SCH ×2 (10:20→22:47)
[2016-06-09] MEDS: MIDODRINE HCL 5 MG TABLET PO SCH ×3 (10:23→17:55)
[2016-06-09] MEDS: DEXTROSE 5%-WATER 250 ML with NOREPINEPHRINE BITARTRATE 4 MG IV PRN ×4 (12:01→17:58)
[2016-06-09] MEDS: LACTULOSE SYRUP 20 GM/30 ML UDCUP PO SCH ×2 (13:42→17:54)
[2016-06-09] MEDS ORDERED: DIGOXIN 0.125 MG TABLET PO ONE (14:00)
[2016-06-09] MEDS ORDERED: (PENDING PHARMACY ID) (Midodrine Hcl [Midodrine Hcl] 10 MG) PO SCH (14:00)
[2016-06-09] MEDS ORDERED: CLINDAMYCIN 900 MG/D5W RTU 50 ML IV SCH (14:00)
[2016-06-09] MEDS ORDERED: VANCOMYCIN HCL 0 MG in DEXTROSE 5%-WATER 250 ML IV NR (16:30)
--- NOTE | 2016-06-09 16:40 | PDOC PROGRESS REPORT ---
Subjective Progress Note for:: 06/09/16 Subjective:: The patient was seen earlier today on rounds. The patient admits to shortness of breath as well as a strong cough. Patient has been producing scant amount of sputum. The patient denies any nausea, vomiting, diarrhea, dizziness, chest pain, heart palpitations, fevers, or chills. I once again reiterated to the patient his risk of aspiration which has been a recurrent issue for some time now. The patient has remained afebrile. Patient is currently at 15 mics of norepinephrine. When prompted the patient voices no other concerns at this time. Review of systems: The rest of the review of systems is negative. Physical Exam Vital Signs: Temp Pulse Resp BP Pulse Ox 97.8 F 69 14 108/51 L 96 06/09/16 15:01 06/09/16 13:55 06/09/16 15:01 06/09/16 15:01 06/09/16 15:01 Intake & Output 06/07/16 06/08/16 06/09/16 23:59 23:59 23:59 Output Total 2150 Balance -2150 Weight 77 kg General appearance: PRESENT: no acute distress, disheveled, well-developed, well -nourished Head exam: PRESENT: atraumatic, normocephalic Eye exam: PRESENT: conjunctiva pink, EOMI, PERRLA. ABSENT: scleral icterus Ear exam: PRESENT: normal external ear exam Mouth exam: PRESENT: moist, tongue midline Neck exam: ABSENT: carotid bruit, JVD, lymphadenopathy, thyromegaly Respiratory exam: PRESENT: decreased breath sounds, rhonchi, symmetrical, tachypnea, unlabored. ABSENT: rales, wheezes Cardiovascular exam: PRESENT: RRR. ABSENT: diastolic murmur, rubs, systolic murmur Pulses: PRESENT: normal dorsalis pedis pul Vascular exam: PRESENT: normal capillary refill GI/Abdominal exam: PRESENT: normal bowel sounds, soft. ABSENT: distended, guarding, mass, organolmegaly, rebound, tenderness Rectal exam: PRESENT: deferred Extremities exam: PRESENT: full ROM. ABSENT: calf tenderness, clubbing, pedal edema Neurological exam: PRESENT: alert, awake, oriented to person, oriented to place. ABSENT: motor sensory deficit Psychiatric exam: PRESENT: agitated, unusual affect. ABSENT: homicidal ideation , suicidal ideation Skin exam: PRESENT: dry, intact, warm. ABSENT: cyanosis, rash Results Laboratory Results: 06/09/16 06:04 06/09/16 06:04 06/09/16 06/09/16 06/09/16 06:04 06:04 06:20 WBC 6.7 RBC 3.55 L Hgb 10.8 L Hct 31.8 L MCV 90 MCH 30.6 MCHC 34.1 RDW 20.9 H Plt Count 353 Seg Neutrophils % 91.6 H Lymphocytes % 5.8 L Monocytes % 2.0 L Eosinophils % 0.0 Basophils % 0.6 Absolute Neutrophils 6.2 Absolute Lymphocytes 0.4 L Absolute Monocytes 0.1 Absolute Eosinophils 0.0 Absolute Basophils 0.0 Carbonic Acid 1.37 H HCO3/H2CO3 Ratio 19:1 ABG pH 7.39 ABG pCO2 45.4 H ABG pO2 63.8 L ABG HCO3 26.7 H ABG O2 Saturation 92.1 L ABG Base Excess 1.4 FiO2 3L Sodium 127.6 L Potassium 5.2 H Chloride 91 L Carbon Dioxide 26 Anion Gap 11 BUN 21 H Creatinine 1.34 H Est GFR ( Amer) > 60 Est GFR (Non-Af Amer) 52 L Glucose 196 H Calcium 8.4 Impressions: Chest X-Ray 06/08/16 17:35 IMPRESSION: Slightly increased airspace opacities in the lateral aspect of the right upper lobe as well as scattered patchy airspace opacities and both lung bases. No significant effusion. New right IJ central venous catheter with tip overlying the region of the SVC at the level of the terri. No pneumothorax identified. Assessment & Plan - Diagnosis (1) Recurrent aspiration pneumonia Is this a current diagnosis for this admission?: YesPlan: Cover the patient with Zosyn. The patient is scheduled to have a modified swallow study in the a.m. if clinically stable. This is been a recurrent issue. (2) Acute and chronic respiratory failure with hypoxia Is this a current diagnosis for this admission?: YesPlan: Will continue BiPAP. ABG revealed improvement. (3) UTI (urinary tract infection) Qualifiers: Urinary tract infection type: site unspecified Hematuria presence: with hematuria Qualified Code(s): N39.0 - Urinary tract infection, site not specified Is this a current diagnosis for this admission?: YesPlan: Will add culture. The patient has been covered broad-spectrum coverage including Zosyn thank. (4) Septic shock Is this a current diagnosis for this admission?: YesPlan: The patient continues on norepinephrine will titrate accordingly to maintain a map greater than 65. (5) Adrenal insufficiency Is this a current diagnosis for this admission?: YesPlan: Continue steroid coverage. (6) ARF (acute renal failure) Qualifiers: Acute renal failure type: unspecified Qualified Code(s): N17.9 - Acute kidney failure, unspecified Is this a current diagnosis for this admission?: YesPlan: It appears the patient's baseline creatinine is in the 1.2 range. This has already improved with hydration. (7) Anemia of chronic disease Is this a current diagnosis for this admission?: YesPlan: Hemoglobin overall stable (8) Anxiety Is this a current diagnosis for this admission?: YesPlan: The patient has an adverse reaction to benzodiazepines (9) BPH (benign prostatic hyperplasia) Qualifiers: Prostatic enlargement morphology: unspecified morphology Lower urinary tract symptom presence: presence of symptoms unspecified Qualified Code(s ): N40.0 - Benign prostatic hyperplasia without lower urinary tract symptoms Is this a current diagnosis for this admission?: YesPlan: Currently has a Blake in place (10) Coronary artery disease Qualifiers: Coronary Disease-Associated Artery/Lesion type: [place] artery [place] vs. transplanted heart: [place] heart Associated angina: angina presence unspecified Qualified Code(s): I25.10 - Atherosclerotic heart disease of [place] coronary artery without angina pectoris Is this a current diagnosis for this admission?: YesPlan: My home meds once the patient's blood pressure control rate of (11) Dysphagia, oropharyngeal phase Is this a current diagnosis for this admission?: Yes (12) Dysphagia, pharyngeal phase Is this a current diagnosis for this admission?: Yes (13) Dysphagia, pharyngoesophageal phase Is this a current diagnosis for this admission?: Yes (14) Essential hypertension Is this a current diagnosis for this admission?: YesPlan: Patient is actually hypotensive will hold (15) GERD (gastroesophageal reflux disease) Qualifiers: Esophagitis presence: without esophagitis Qualified Code(s): K21.9 - Gastro-esophageal reflux disease without esophagitis Is this a current diagnosis for this admission?: YesPlan: Will continue home medications. (16) Hyperkalemia Is this a current diagnosis for this admission?: YesPlan: Will continue to monitor (17) Hyponatremia Is this a current diagnosis for this admission?: YesPlan: Appears to be persistent MRSA could do the patient's lung disease (18) Hypotension Qualifiers: Hypotension type: unspecified hypotension type Qualified Code(s): I95.9 - Hypotension, unspecified Is this a current diagnosis for this admission?: YesPlan: The patient is on Midrin chronically. (19) Seizure disorder Is this a current diagnosis for this admission?: YesPlan: This is listed in the patient's history however I cannot find any medications addressing this. Will attempt to contact the patient's family for more history. (20) Sleep apnea syndrome Qualifiers: Sleep apnea type: unspecified type Qualified Code(s): G47.30 - Sleep apnea, unspecified Is this a current diagnosis for this admission?: Yes (21) Afib Qualifiers: Atrial fibrillation type: chronic Qualified Code(s): I48.2 - Chronic atrial fibrillation Is this a current diagnosis for this admission?: YesPlan: The patient is currently vent paced (22) COPD (chronic obstructive pulmonary disease) Qualifiers: COPD type: COPD with acute exacerbation Qualified Code(s): J44.1 - Chronic obstructive pulmonary disease with (acute) exacerbation Is this a current diagnosis for this admission?: YesPlan: Will continue home medications. 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 (25) History of implantable cardioverter-defibrillator (ICD) placement Is this a current diagnosis for this admission?: Yes (26) DVT prophylaxis Is this a current diagnosis for this admission?: Yes - Time Critical Time spent with patient: 35 or more minutes Medications reviewed and adjusted accordingly: Yes Anticipated discharge: SNF Disposition: The patient is a full code. Pending patient's symptomatology and diagnostic findings will reevaluate in the a.m.
[2016-06-09] MEDS: NORMAL SALINE 1000 ML 1,000 ML IV PRN (16:51)
[2016-06-09] MEDS: PIPERACILLIN SODIUM/TAZOBACTAM 4.5 GM in NORMAL SALINE 100 ML IV SCH (17:58)
[2016-06-09] MEDS: DOCUSATE SODIUM 100 MG CAPSULE PO SCH (17:58)
[2016-06-09] MEDS: APIXABAN 5 MG TABLET PO SCH (17:59)
[2016-06-09] MEDS ORDERED: EPLERENONE 25 MG TABLET PO SCH (18:00)
[2016-06-09] MEDS ORDERED: VANCOMYCIN HCL INJ 1000 MG VIAL ONE (22:29)
[2016-06-09] MEDS: VANCOMYCIN HCL 750 MG in DEXTROSE 5%-WATER 250 ML IV SCH (22:46)
[2016-06-09] MEDS: BUDESONIDE/FORMOTEROL 80-4.5 MCG 60 PUFF/6.9 GM MDI IH SCH (22:47)
[2016-06-10] MEDS: DEXTROSE 5%-WATER 250 ML with NOREPINEPHRINE BITARTRATE 4 MG IV PRN ×4 (00:30→07:00)
[2016-06-10] MEDS: IPRATROPIUM/ALBUTEROL 0.5-2.5 MG/3 ML AMPUL NEB SCH ×4 (01:55→20:15)
[2016-06-10] MEDS: PIPERACILLIN SODIUM/TAZOBACTAM 4.5 GM in NORMAL SALINE 100 ML IV SCH ×4 (02:02→20:11)
[2016-06-10] MEDS: NORMAL SALINE 1000 ML 1,000 ML IV PRN (05:34)
[2016-06-10] MEDS: HYDROCORTISONE SOD SUCCINATE INJ/PF 100 MG/2 ML SDV IV SCH ×3 (06:45→22:07)
[2016-06-10] MEDS: GABAPENTIN 300 MG CAPSULE PO SCH ×3 (06:45→22:07)
[2016-06-10 07:04] LABS: HEMATOCRIT 29.6 % (37.9-51.0); HEMOGLOBIN 9.8 g/dL (13.5-17.0); HGB HCT DIFFERENCE -0.2; MEAN CORPUSCULAR HEMOGLOBIN 29.8 pg (27.0-33.4); MEAN CORPUSCULAR HGB CONC 33.3 g/dL (32.0-36.0); MEAN CORPUSCULAR VOLUME 90 fl (80-97)
[2016-06-10 07:10] LABS: ALANINE AMINOTRANSFERASE 27 U/L (21-72); ALBUMIN 2.9 g/dL (3.5-5.0); ALKALINE PHOSPHATASE 161 U/L (38-126); ANION GAP 11 (5-19); ASPARTATE AMINO TRANSFERASE 15 U/L (17-59); BILIRUBIN,DIRECT 1.1 mg/dL (0.0-0.4); BILIRUBIN,TOTAL 1.6 mg/dL (0.2-1.3); BLOOD UREA NITROGEN 20 mg/dL (7-20); CALCIUM 8.6 mg/dL (8.4-10.2); CARBON DIOXIDE 24 mmol/L (22-30); CHLORIDE 93 mmol/L (98-107); CREATININE RESULT 0.95 mg/dL (0.52-1.25); GLUCOSE 142 mg/dL (75-110); MAGNESIUM 1.8 mg/dL (1.6-2.3); POTASSIUM 4.6 mmol/L (3.6-5.0); TOTAL PROTEIN 6.6 g/dL (6.3-8.2)
[2016-06-10 08:14] LABS: BAND NEUTROPHILS % (MANUAL) 7 % (3-5); BASOPHILS % (MANUAL) 0 % (0-2); EOSINOPHILS % (MANUAL) 0 % (0-6); LYMPHOCYTES % (MANUAL) 12 % (13-45); TOTAL CELLS COUNTED 100
[2016-06-10 08:19] LABS: BURR CELLS SLIGHT; POLYCHROMASIA SLIGHT
[2016-06-10 08:20] LABS: ANISOCYTOSIS 3+; OVALOCYTES 1+; POIKILOCYTOSIS 1+; TEAR DROP CELLS SLIGHT
--- NOTE | 2016-06-10 09:15 | ST Inp Modified Barium Swallow ---
Medical Diagnosis - Medical Diagnoses Medical Diagnosis Description & ICD-10 Code(s): risk of aspiration - ICD-10 Tx Diagnosis Coding (1) Dysphagia, oropharyngeal phase ICD-10 Code(s): R13.12 - DYSPHAGIA, OROPHARYNGEAL PHASE (2) Dysphagia, pharyngeal phase ICD-10 Code(s): R13.13 - DYSPHAGIA, PHARYNGEAL PHASE ST Inpatient [facility] [place] - General Date: 06/10/16 Date of Onset: 06/08/16 - History History Obtained From: Patient - per EMR -: Medical - SOB, likely aspiration event, recurrent aspiration PNA and encephalopathy, profound hypotension, pt refusing NPO status and NG tube feedings, full code, aspiration risk, aspiration PNA, hyponatremia. chest xray shows right sided infiltrate, patchy airspace opacities both lung bases. PMHx: oxygen dependence, CAD, a-fib, systolic heart failure, CHF, HLD, HTN, bronchitis , COPD, PNA, seizures, diabetes, GERD, arthritis, dementia, anemia. Medications: Medications Reviewed Allergies: Refer to medical record - Subjective Current Nutritional Means: NPO Current PO Diet: N/A (NPO) Current Symptoms: Pneumonia, Aspiration, Hx of asp. pneumonia Pain: 0/5 - Objective Assessment: Upright, Left Lateral - Food Trials Food Trials Used: Thin liquids, [place] thick liquids, Pureed, Soft solids The Patient: Was Able to Self Feed - Assessment Labial Function: Within Functional Limits Lingual Function: Within Functional Limits - perseverative chewing observed on soft solids resulting in increased premature spill into pharynx. Mandibular Function: Within Functional Limits Dentition: Edentulous Velo-Pharyngeal Function: Unremarkable Laryngeal Function: Volitional Cough, Volitional Swallow - Pharyngeal Stage Initiation of Pharyngeal Stage: Delayed Reflex Delay Time (seconds): 2 Decreased Laryngeal Elevation: Yes - mild-moderate Reduced Velo-Pharyngeal Closure: no Reduced Pressure Generation: Yes - mild-moderate Reduced Tongue Base Retraction: Yes - mild-moderate Pre-Swallowing Pooling in Valleculae: Moderate - mild on nectar and puree, moderate-significant on soft solids Pre-Swallowing Pooling in Pyriforms: Mild - on nectar and soft solids Reduced Thyro-Hyiod Approximation: Yes - mild Reduced Epiglottic Excursion: No Reduced Pharyngeal Peristalsis: No Multiple Swallows With: Cleared w/ Liquid Assist Post Swallow Residuals in Valleculae: Moderate Post Swallow Residuals in Pyriforms: Mild - Impression/Summary Laryngeal Penetration: No Tracheal Aspiration: no Patient Presents With: Pharyngeal stage dysph., Oral-Pharyngeal dysph., Mild- Moderate Risk of Aspiration: Moderate - mild-moderate - Recommendations NPO: no Solid Diet Recommendations: Pureed Liquid Diet Recommendations: Thin - no straws Strict Aspitarion Precautions: Yes Dysphagia Therapy with [employer] HAND: Yes, Discharge Recommended Techniques: Fully Upright During Meal, Small Bites and Sips, Alternate Bites/Sips Supervision: Distant Other Recommendations: 1) DIET: Recommend pureed solids and thin liquids. NO STRAWS. 2) STRATEGIES: Alternate bites and sips, small bites and sips. 3) Acute care ST to treat x2 per week during hospital stay. Recommend ST after discharge. SUMMARY: Pt presents with a moderate dysphagia characterized by premature spillage, prolonged perseverative chewing on soft solids, reduced base of tongue, reduced hyolaryngeal elevation. No penetration or aspiration observed during study. Effective swallow observed with spoon and cup sips of thin. No penetration observed with nectar thick liquids however observed mild residuals pooling into valleculae and down to the level of the pyriforms which required second swallow to clear-ST initiated. Trace residuals observed on puree , cleared with alternating bites and sips. Moderate-significant premature spillage observed on soft solids at the level of the valleculae pooling to the level of the pyriforms. Moderate residuals observed on soft solids at the level of the valleculae and mild at the level of the pyriforms. Pt educated on results of MBSS, pt became upset when ST informed of recommended continued pureed solids and stated "I'm not going to eat that, I know what that is!" Pt educated on increased risk of aspiration with diet upgrade. ST contacted regarding results, recommendations, and pt concerns. MD in agreement with ST and wishes ST to place recommended PO diet. provided ST with telephone order for diet placement. - Time Total Time: 25 Total Timed Minutes: 0
[2016-06-10] MEDS ORDERED: SPIRONOLACTONE 25 MG TABLET PO SCH (10:00)
[2016-06-10] MEDS: DOCUSATE SODIUM 100 MG CAPSULE PO SCH ×2 (10:25→20:15)
[2016-06-10] MEDS: MIDODRINE HCL 5 MG TABLET PO SCH ×3 (10:27→20:13)
[2016-06-10] MEDS: FERROUS SULFATE 325 MG TABLET PO SCH (10:28)
[2016-06-10] MEDS: GUAIFENESIN 600 MG TABLET.SA PO SCH ×2 (10:28→22:07)
[2016-06-10] MEDS: ASPIRIN 81 MG TABLET, CHEWABLE PO SCH (10:29)
[2016-06-10] MEDS: LACTULOSE SYRUP 20 GM/30 ML UDCUP PO SCH ×3 (10:29→20:15)
[2016-06-10] MEDS: APIXABAN 5 MG TABLET PO SCH ×2 (11:41→20:14)
[2016-06-10] MEDS: DIGOXIN 0.125 MG TABLET PO SCH (11:41)
[2016-06-10] MEDS: BUDESONIDE/FORMOTEROL 80-4.5 MCG 60 PUFF/6.9 GM MDI IH SCH ×2 (11:42→23:01)
[2016-06-10] MEDS: VANCOMYCIN HCL 750 MG in DEXTROSE 5%-WATER 250 ML IV SCH ×2 (11:55→22:07)
[2016-06-10 15:27] LABS: PATH REVIEW PATHOLOGIST REVIEWED
--- NOTE | 2016-06-10 17:04 | PDOC PROGRESS REPORT ---
Subjective Progress Note for:: 06/10/16 Subjective:: The patient was seen earlier today on rounds. The patient states that he will not eat a pured diet as recommended by speech therapy. I discussed this in detail with the patient given that his chronic aspiration has led to multiple readmissions. I asked the patient about specific goals and reminded him that he had refused PEG feedings as well. The patient stated that intubation was the reason that he lost his the T2 swallow anyway. The patient states that he wants to eat solid foods regardless of the consequences. I discussed this with the patient and he is agreed to be seen by palliative care. The patient also has agreed to DO NOT RESUSCITATE status. Review of systems: The rest of the review of systems is negative. Physical Exam Vital Signs: Temp Pulse Resp BP Pulse Ox 98.5 F 86 12 116/77 97 06/10/16 16:31 06/10/16 14:06 06/10/16 16:31 06/10/16 16:31 06/10/16 16:31 Intake & Output 06/08/16 06/09/16 06/10/16 23:59 23:59 23:59 Intake Total 1319 Output Total 2475 550 Balance -1156 -550 Weight 77 kg General appearance: PRESENT: no acute distress, disheveled, well-developed, well -nourished Head exam: PRESENT: atraumatic, normocephalic Eye exam: PRESENT: conjunctiva pink, EOMI, PERRLA. ABSENT: scleral icterus Ear exam: PRESENT: normal external ear exam Mouth exam: PRESENT: moist, tongue midline Neck exam: ABSENT: carotid bruit, JVD, lymphadenopathy, thyromegaly Respiratory exam: PRESENT: rhonchi, symmetrical, unlabored. ABSENT: rales, tachypnea, wheezes Cardiovascular exam: PRESENT: RRR. ABSENT: diastolic murmur, rubs, systolic murmur Pulses: PRESENT: normal dorsalis pedis pul Vascular exam: PRESENT: normal capillary refill GI/Abdominal exam: PRESENT: normal bowel sounds, soft. ABSENT: distended, guarding, mass, organolmegaly, rebound, tenderness Rectal exam: PRESENT: deferred Extremities exam: PRESENT: full ROM. ABSENT: calf tenderness, clubbing, pedal edema Neurological exam: PRESENT: alert, awake, oriented to person, oriented to place , oriented to time, oriented to situation, CN II-XII grossly intact. ABSENT: motor sensory deficit Psychiatric exam: PRESENT: appropriate affect, normal mood. ABSENT: homicidal ideation, suicidal ideation Skin exam: PRESENT: dry, intact, warm. ABSENT: cyanosis, rash Results Laboratory Results: 06/10/16 06:26 06/10/16 06:26 06/10/16 06/10/16 06:26 06:26 WBC 7.0 RBC 3.30 L Hgb 9.8 L Hct 29.6 L MCV 90 MCH 29.8 MCHC 33.3 RDW 21.0 H Plt Count 347 Seg Neutrophils % Not Reportable Lymphocytes % Not Reportable Monocytes % Not Reportable Eosinophils % Not Reportable Basophils % Not Reportable Absolute Neutrophils Not Reportable Absolute Lymphocytes Not Reportable Absolute Monocytes Not Reportable Absolute Eosinophils Not Reportable Absolute Basophils Not Reportable Sodium 128.0 L Potassium 4.6 Chloride 93 L Carbon Dioxide 24 Anion Gap 11 BUN 20 Creatinine 0.95 Est GFR ( Amer) > 60 Est GFR (Non-Af Amer) > 60 Glucose 142 H Calcium 8.6 Magnesium 1.8 Total Bilirubin 1.6 H AST 15 L ALT 27 Alkaline Phosphatase 161 H Total Protein 6.6 Albumin 2.9 L Impressions: Chest X-Ray 06/08/16 17:35 IMPRESSION: Slightly increased airspace opacities in the lateral aspect of the right upper lobe as well as scattered patchy airspace opacities and both lung bases. No significant effusion. New right IJ central venous catheter with tip overlying the region of the SVC at the level of the terri. No pneumothorax identified. Modified Barium Swallow 06/10/16 07:30 IMPRESSION: TRACE LARYNGEAL PENETRATION WITH THIN LIQUIDS AND POST SWALLOW RESIDUALS WITHOUT EVIDENCE OF ASPIRATION.PLEASE SEE SPEECH PATHOLOGIST REPORT FOR OTHER FINDINGS AND RECOMMENDATIONS. Assessment & Plan - Diagnosis (1) Recurrent aspiration pneumonia Is this a current diagnosis for this admission?: YesPlan: Cover the patient with Zosyn. The patient was seen and evaluated by speech therapy and made recommendations for pured diet. The patient refuses this however he does accept the risk and consequences of more solid foods. The patient is agreeable to palliative care consultation and wants to be a DNR/DNI (2) Acute and chronic respiratory failure with hypoxia Is this a current diagnosis for this admission?: YesPlan: No longer requiring BiPAP. ABG revealed improvement. (3) Septic shock Is this a current diagnosis for this admission?: YesPlan: Will lower the map goal 55-60. Upon review of previous records it appears the patient is chronically hypotensive and takes minute minodrine for this. As likely this is due to the patient's severe cardiomyopathy. Will aggressively wean norepinephrine at this time. (4) Adrenal insufficiency Is this a current diagnosis for this admission?: YesPlan: Continue steroid coverage. (5) ARF (acute renal failure) Qualifiers: Acute renal failure type: unspecified Qualified Code(s): N17.9 - Acute kidney failure, unspecified Is this a current diagnosis for this admission?: YesPlan: It appears the patient's baseline creatinine is in the 1.2 range. This has already improved with hydration. (6) Anemia of chronic disease Is this a current diagnosis for this admission?: YesPlan: Hemoglobin overall stable (7) Anxiety Is this a current diagnosis for this admission?: YesPlan: The patient has an adverse reaction to benzodiazepines (8) BPH (benign prostatic hyperplasia) Qualifiers: Prostatic enlargement morphology: unspecified morphology Lower urinary tract symptom presence: presence of symptoms unspecified Qualified Code(s ): N40.0 - Benign prostatic hyperplasia without lower urinary tract symptoms Is this a current diagnosis for this admission?: YesPlan: Currently has a Blake in place (9) Coronary artery disease Qualifiers: Coronary Disease-Associated Artery/Lesion type: [place] artery [place] vs. transplanted heart: [place] heart Associated angina: angina presence unspecified Qualified Code(s): I25.10 - Atherosclerotic heart disease of [place] coronary artery without angina pectoris Is this a current diagnosis for this admission?: YesPlan: My home meds once the patient's blood pressure control rate of (10) Dysphagia, oropharyngeal phase Is this a current diagnosis for this admission?: Yes (11) Dysphagia, pharyngeal phase Is this a current diagnosis for this admission?: Yes (12) Dysphagia, pharyngoesophageal phase Is this a current diagnosis for this admission?: Yes (13) Essential hypertension Is this a current diagnosis for this admission?: YesPlan: Patient is actually hypotensive will hold (14) GERD (gastroesophageal reflux disease) Qualifiers: Esophagitis presence: without esophagitis Qualified Code(s): K21.9 - Gastro-esophageal reflux disease without esophagitis Is this a current diagnosis for this admission?: YesPlan: Will continue home medications. (15) Hyperkalemia Is this a current diagnosis for this admission?: YesPlan: Will continue to monitor (16) Hyponatremia Is this a current diagnosis for this admission?: YesPlan: Appears to be persistent most likely due to could do the patient's lung disease (17) Hypotension Qualifiers: Hypotension type: unspecified hypotension type Qualified Code(s): I95.9 - Hypotension, unspecified Is this a current diagnosis for this admission?: YesPlan: The patient is on Minitran chronically. (18) Seizure disorder Is this a current diagnosis for this admission?: YesPlan: This is listed in the patient's history however I cannot find any medications addressing this. Will attempt to contact the patient's family for more history. (19) Sleep apnea syndrome Qualifiers: Sleep apnea type: unspecified type Qualified Code(s): G47.30 - Sleep apnea, unspecified Is this a current diagnosis for this admission?: Yes (20) Afib Qualifiers: Atrial fibrillation type: chronic Qualified Code(s): I48.2 - Chronic atrial fibrillation Is this a current diagnosis for this admission?: YesPlan: The patient is currently vent paced (21) COPD (chronic obstructive pulmonary disease) Qualifiers: COPD type: COPD with acute exacerbation Qualified Code(s): J44.1 - Chronic obstructive pulmonary disease with (acute) exacerbation Is this a current diagnosis for this admission?: YesPlan: Will continue home medications. (22) nursing home current use of anticoagulant therapy Is this a current diagnosis for this admission?: YesPlan: Will continue Eliquis (23) Systolic and diastolic CHF, chronic Is this a current diagnosis for this admission?: YesPlan: The patient actually appears on the dry side. (24) History of implantable cardioverter-defibrillator (ICD) placement Is this a current diagnosis for this admission?: Yes (25) DVT prophylaxis Is this a current diagnosis for this admission?: Yes - Time Critical Time spent with patient: 35 or more minutes Medications reviewed and adjusted accordingly: Yes Anticipated discharge: SNF Disposition: The patient is a DO NOT RESUSCITATE DO NOT INTUBATE. Pending patient's symptomatology and diagnostic findings will reevaluate as needed.
[2016-06-10] MEDS ORDERED: BUDESONIDE/FORMOTEROL 80-4.5 MCG 60 PUFF/6.9 GM MDI IH ONE (22:07)
[2016-06-11] MEDS: PIPERACILLIN SODIUM/TAZOBACTAM 4.5 GM in NORMAL SALINE 100 ML IV SCH ×4 (00:47→17:55)
[2016-06-11] MEDS: IPRATROPIUM/ALBUTEROL 0.5-2.5 MG/3 ML AMPUL NEB SCH ×4 (02:21→19:52)
[2016-06-11] MEDS: ACETAMINOPHEN 325 MG TABLET PO PRN ×2 (04:25→11:56)
[2016-06-11] MEDS: GABAPENTIN 300 MG CAPSULE PO SCH ×3 (06:20→21:38)
[2016-06-11] MEDS: HYDROCORTISONE SOD SUCCINATE INJ/PF 100 MG/2 ML SDV IV SCH ×3 (06:21→21:38)
[2016-06-11] MEDS: NORMAL SALINE 1000 ML 1,000 ML IV PRN ×2 (06:22→21:39)
[2016-06-11 08:27] LABS: HEMATOCRIT 26.6 % (37.9-51.0); HEMOGLOBIN 8.7 g/dL (13.5-17.0); HGB HCT DIFFERENCE -0.5; MEAN CORPUSCULAR HEMOGLOBIN 29.9 pg (27.0-33.4); MEAN CORPUSCULAR HGB CONC 32.7 g/dL (32.0-36.0); MEAN CORPUSCULAR VOLUME 92 fl (80-97); RED CELL DISTRIBUTION WIDTH 20.8 % (11.5-14.0); WHITE BLOOD COUNT 6.4 10^3/uL (4.0-10.5)
[2016-06-11 08:43] LABS: ALANINE AMINOTRANSFERASE 29 U/L (21-72); ALBUMIN 2.6 g/dL (3.5-5.0); ALKALINE PHOSPHATASE 125 U/L (38-126); ANION GAP 11 (5-19); ASPARTATE AMINO TRANSFERASE 20 U/L (17-59); BILIRUBIN,DIRECT 0.8 mg/dL (0.0-0.4); BILIRUBIN,TOTAL 1.3 mg/dL (0.2-1.3); BLOOD UREA NITROGEN 22 mg/dL (7-20); CALCIUM 8.4 mg/dL (8.4-10.2); CARBON DIOXIDE 23 mmol/L (22-30); CHLORIDE 92 mmol/L (98-107); CREATININE RESULT 0.96 mg/dL (0.52-1.25); GLUCOSE 110 mg/dL (75-110); POTASSIUM 4.3 mmol/L (3.6-5.0); SODIUM 126.3 mmol/L (137-145); TOTAL PROTEIN 5.6 g/dL (6.3-8.2)
[2016-06-11 09:03] LABS: BAND NEUTROPHILS % (MANUAL) 6 % (3-5); BASOPHILS % (MANUAL) 0 % (0-2); EOSINOPHILS % (MANUAL) 0 % (0-6); LYMPHOCYTES % (MANUAL) 9 % (13-45); TOTAL CELLS COUNTED 100
[2016-06-11 09:04] LABS: ANISOCYTOSIS 2+; PLATELET CLUMPS PRESENT
[2016-06-11 09:07] LABS: OVALOCYTES 1+; POIKILOCYTOSIS 1+; POLYCHROMASIA SLIGHT; TARGET CELLS SLIGHT
[2016-06-11 09:09] LABS: BURR CELLS SLIGHT
[2016-06-11] MEDS: MIDODRINE HCL 5 MG TABLET PO SCH ×3 (11:47→17:56)
[2016-06-11] MEDS: APIXABAN 5 MG TABLET PO SCH ×2 (11:52→17:56)
[2016-06-11] MEDS: GUAIFENESIN 600 MG TABLET.SA PO SCH ×2 (11:53→21:38)
[2016-06-11] MEDS: FERROUS SULFATE 325 MG TABLET PO SCH (11:54)
[2016-06-11] MEDS: LACTULOSE SYRUP 20 GM/30 ML UDCUP PO SCH ×3 (11:54→17:55)
[2016-06-11] MEDS: ASPIRIN 81 MG TABLET, CHEWABLE PO SCH (11:54)
[2016-06-11] MEDS: DIGOXIN 0.125 MG TABLET PO SCH (11:55)
[2016-06-11] MEDS: VANCOMYCIN HCL 750 MG in DEXTROSE 5%-WATER 250 ML IV SCH (11:57)
[2016-06-11] MEDS: DOCUSATE SODIUM 100 MG CAPSULE PO SCH ×2 (11:57→17:57)
[2016-06-11] MEDS: BUDESONIDE/FORMOTEROL 80-4.5 MCG 60 PUFF/6.9 GM MDI IH SCH ×2 (11:58→21:38)
--- NOTE | 2016-06-11 15:27 | PDOC PROGRESS REPORT ---
Subjective Progress Note for:: 06/11/16 Subjective:: The patient was seen earlier today on rounds. The patient states that he will not eat a pured diet as recommended by speech therapy. I discussed this in detail with the patient given that his chronic aspiration has led to multiple readmissions. I asked the patient about specific goals and reminded him that he had refused PEG feedings as well. The patient stated that intubation was the reason that he lost his the ability to swallow anyway. The patient states that he wants to eat solid foods regardless of the consequences. I discussed this with the patient and he is agreed to be seen by palliative care. The patient also has agreed to DO NOT RESUSCITATE status. Review of systems: The rest of the review of systems is negative. Physical Exam Vital Signs: Temp Pulse Resp BP Pulse Ox 97.8 F 76 18 81/45 L 97 06/11/16 12:01 06/11/16 14:03 06/11/16 14:03 06/11/16 12:01 06/11/16 14:03 Intake & Output 06/09/16 06/10/16 06/11/16 23:59 23:59 23:59 Intake Total 1319 Output Total 2475 550 700 Balance -1156 -550 -700 Weight 77 kg General appearance: PRESENT: no acute distress, disheveled, well-developed, well -nourished Head exam: PRESENT: atraumatic, normocephalic Eye exam: PRESENT: conjunctiva pink, EOMI, PERRLA. ABSENT: scleral icterus Ear exam: PRESENT: normal external ear exam Mouth exam: PRESENT: moist, tongue midline Neck exam: ABSENT: carotid bruit, JVD, lymphadenopathy, thyromegaly Respiratory exam: PRESENT: rhonchi, symmetrical, unlabored. ABSENT: rales, tachypnea, wheezes Cardiovascular exam: PRESENT: RRR. ABSENT: diastolic murmur, rubs, systolic murmur Pulses: PRESENT: normal dorsalis pedis pul Vascular exam: PRESENT: normal capillary refill GI/Abdominal exam: PRESENT: normal bowel sounds, soft. ABSENT: distended, guarding, mass, organolmegaly, rebound, tenderness Rectal exam: PRESENT: deferred Extremities exam: PRESENT: full ROM. ABSENT: calf tenderness, clubbing, pedal edema Neurological exam: PRESENT: alert, awake, oriented to person, oriented to place , oriented to time, oriented to situation, CN II-XII grossly intact. ABSENT: motor sensory deficit Psychiatric exam: PRESENT: appropriate affect, normal mood. ABSENT: homicidal ideation, suicidal ideation Skin exam: PRESENT: dry, intact, warm. ABSENT: cyanosis, rash Results Laboratory Results: 06/11/16 07:57 06/11/16 07:57 06/10/16 06/11/16 06/11/16 06:26 07:57 07:57 WBC 7.0 6.4 RBC 3.30 L 2.90 L Hgb 9.8 L 8.7 L Hct 29.6 L 26.6 L MCV 90 92 MCH 29.8 29.9 MCHC 33.3 32.7 RDW 21.0 H 20.8 H Plt Count 347 247 Seg Neutrophils % Not Reportable Lymphocytes % Not Reportable Monocytes % Not Reportable Eosinophils % Not Reportable Basophils % Not Reportable Absolute Neutrophils Not Reportable Absolute Lymphocytes Not Reportable Absolute Monocytes Not Reportable Absolute Eosinophils Not Reportable Absolute Basophils Not Reportable Sodium Cancelled Potassium Cancelled Chloride Cancelled Carbon Dioxide Cancelled Anion Gap Cancelled BUN Cancelled Creatinine Cancelled Est GFR ( Amer) Cancelled Est GFR (Non-Af Amer) Cancelled Glucose Cancelled Calcium Cancelled Magnesium 1.7 Total Bilirubin AST ALT Alkaline Phosphatase Total Protein Albumin 06/11/16 06/11/16 07:57 07:57 WBC RBC Hgb Hct MCV MCH MCHC RDW Plt Count Seg Neutrophils % Lymphocytes % Monocytes % Eosinophils % Basophils % Absolute Neutrophils Absolute Lymphocytes Absolute Monocytes Absolute Eosinophils Absolute Basophils Sodium Cancelled 126.3 L Potassium Cancelled 4.3 Chloride Cancelled 92 L Carbon Dioxide Cancelled 23 Anion Gap Cancelled 11 BUN Cancelled 22 H Creatinine Cancelled 0.96 Est GFR ( Amer) Cancelled > 60 Est GFR (Non-Af Amer) Cancelled > 60 Glucose Cancelled 110 Calcium Cancelled 8.4 Magnesium Total Bilirubin Cancelled 1.3 AST Cancelled 20 ALT Cancelled 29 Alkaline Phosphatase Cancelled 125 Total Protein Cancelled 5.6 L Albumin Cancelled 2.6 L 06/09/16 18:50 Blake Catheter Urine Culture - Final C.albicans/C.dubliniensis Impressions: Modified Barium Swallow 06/10/16 07:30 IMPRESSION: TRACE LARYNGEAL PENETRATION WITH THIN LIQUIDS AND POST SWALLOW RESIDUALS WITHOUT EVIDENCE OF ASPIRATION.PLEASE SEE SPEECH PATHOLOGIST REPORT FOR OTHER FINDINGS AND RECOMMENDATIONS. Chest X-Ray 06/11/16 06:00 IMPRESSION: Persistent airspace disease in the periphery of the right upper lobe near the minor fissure, and left lung base. Assessment & Plan - Diagnosis (1) Recurrent aspiration pneumonia Is this a current diagnosis for this admission?: YesPlan: Cover the patient with Zosyn. The patient was seen and evaluated by speech therapy and made recommendations for pured diet. The patient refuses this however he does accept the risk and consequences of more solid foods. The patient is agreeable to palliative care consultation and wants to be a DNR/DNI (2) Acute and chronic respiratory failure with hypoxia Is this a current diagnosis for this admission?: YesPlan: No longer requiring BiPAP. ABG revealed improvement. (3) Septic shock Is this a current diagnosis for this admission?: YesPlan: Will lower the map goal 55-60. Upon review of previous records it appears the patient is chronically hypotensive and takes minute minodrine for this. As likely this is due to the patient's severe cardiomyopathy. Will aggressively wean norepinephrine at this time. (4) Adrenal insufficiency Is this a current diagnosis for this admission?: YesPlan: Continue steroid coverage. (5) ARF (acute renal failure) Qualifiers: Acute renal failure type: unspecified Qualified Code(s): N17.9 - Acute kidney failure, unspecified Is this a current diagnosis for this admission?: YesPlan: It appears the patient's baseline creatinine is in the 1.2 range. This has already improved with hydration. (6) Anemia of chronic disease Is this a current diagnosis for this admission?: YesPlan: Hemoglobin overall stable (7) Anxiety Is this a current diagnosis for this admission?: YesPlan: The patient has an adverse reaction to benzodiazepines (8) BPH (benign prostatic hyperplasia) Qualifiers: Prostatic enlargement morphology: unspecified morphology Lower urinary tract symptom presence: presence of symptoms unspecified Qualified Code(s ): N40.0 - Benign prostatic hyperplasia without lower urinary tract symptoms Is this a current diagnosis for this admission?: YesPlan: Currently has a Blake in place (9) Coronary artery disease Qualifiers: Coronary Disease-Associated Artery/Lesion type: [place] artery [place] vs. transplanted heart: [place] heart Associated angina: angina presence unspecified Qualified Code(s): I25.10 - Atherosclerotic heart disease of [place] coronary artery without angina pectoris Is this a current diagnosis for this admission?: YesPlan: My home meds once the patient's blood pressure control rate of (10) Dysphagia, oropharyngeal phase Is this a current diagnosis for this admission?: Yes (11) Dysphagia, pharyngeal phase Is this a current diagnosis for this admission?: Yes (12) Dysphagia, pharyngoesophageal phase Is this a current diagnosis for this admission?: Yes (13) Essential hypertension Is this a current diagnosis for this admission?: YesPlan: Patient is actually hypotensive will hold (14) GERD (gastroesophageal reflux disease) Qualifiers: Esophagitis presence: without esophagitis Qualified Code(s): K21.9 - Gastro-esophageal reflux disease without esophagitis Is this a current diagnosis for this admission?: YesPlan: Will continue home medications. (15) Hyperkalemia Is this a current diagnosis for this admission?: YesPlan: Will continue to monitor (16) Hyponatremia Is this a current diagnosis for this admission?: YesPlan: Appears to be persistent most likely due to could do the patient's lung disease (17) Hypotension Qualifiers: Hypotension type: unspecified hypotension type Qualified Code(s): I95.9 - Hypotension, unspecified Is this a current diagnosis for this admission?: YesPlan: The patient is on Minitran chronically. (18) Seizure disorder Is this a current diagnosis for this admission?: YesPlan: This is listed in the patient's history however I cannot find any medications addressing this. Will attempt to contact the patient's family for more history. (19) Sleep apnea syndrome Qualifiers: Sleep apnea type: unspecified type Qualified Code(s): G47.30 - Sleep apnea, unspecified Is this a current diagnosis for this admission?: Yes (20) Afib Qualifiers: Atrial fibrillation type: chronic Qualified Code(s): I48.2 - Chronic atrial fibrillation Is this a current diagnosis for this admission?: YesPlan: The patient is currently vent paced (21) COPD (chronic obstructive pulmonary disease) Qualifiers: COPD type: COPD with acute exacerbation Qualified Code(s): J44.1 - Chronic obstructive pulmonary disease with (acute) exacerbation Is this a current diagnosis for this admission?: YesPlan: Will continue home medications. 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 (24) History of implantable cardioverter-defibrillator (ICD) placement Is this a current diagnosis for this admission?: Yes (25) DVT prophylaxis Is this a current diagnosis for this admission?: Yes
[2016-06-11] MEDS: VANCOMYCIN HCL 1,000 MG in DEXTROSE 5%-WATER 250 ML IV SCH (21:43)
--- NOTE | 2016-06-11 23:40 | Palliative Consultation Report ---
Consultation From:: [facility] HPI: Palliative Care Consult 06/11/16 1:10- 1:30 PM Appreciate palliaitve consult requent with this 75 year old gentleman who has been admitted with aspiration pneumonia and sepsis. He was admittted with respiratory distress so severe that he neded Bipap, but is on nasal cannula now. Mr. Valadez also suffers with COPD, Cardiomyopathy, A-Fib, CAD, CHF, hypotension, anemia, anxiety and had acute renal failure on admission. He has a pacemaker and AICD. He is alert and oriented and very pleasant. He looks older than his years and very weak at this point. Mr. Valadez immediately showed me his lunch tray, of which he only ate the pudding. He told me he has many things wrong with him and is "old", so he does not want to spend the last days of his life eating "that stuff". He says he is going to eat regular food and if he gets it "in his lungs, he just does". Mr. Valadez denies having any pain or symptoms other than "being hungry" and weakness. He is very nice and says he will be going back to [facility] after he is dischrged. He agrees he doent want to be on a ventilator and repeats that he wants to eat and be "himself" until he dies. He said he has no needs at present. He just wants a regular meal. He is agreeable to his neubulizer treatmets and other treatments. Onset: Just prior to arrival Onset/Duration: Sudden Quality of Pain: No pain Severity: None Associated Symptoms: Allergy/hay fever, Chest pain, Productive cough, Hoarseness , Weakness Exacerbated by: Coughing Relieved by: Remaining still Past Medical History(Consults) - General Information Source: Patient, [facility] Records Home Medications: Acetaminophen [Tylenol] 650 mg PO Q4HP PRN 06/09/16 Albuterol Sulfate [Ventolin 0.083% Neb 2.5 mg/3 ml Ampul] 1 vial NEB RTQ4HP PRN 06/09/16 Apixaban [Eliquis 5 mg Tablet] 5 mg PO BID 06/09/16 Aspirin [Aspirin 81 mg Chewable Tablet] 81 mg PO DAILY 06/09/16 Budesonide/Formoterol Fumarate [Symbicort Hfa 80-4.5 Mcg Inhaler 6.9 gm] 2 puff IH Q12 06/09/16 Digoxin [Lanoxin 0.125 mg Tablet] 0.125 mg PO DAILY 06/09/16 Docusate Sodium [Colace 100 mg Capsule] 100 mg PO BID 06/09/16 Eplerenone [Inspra 25 Mg Tablet] 25 mg PO BID 06/09/16 Ferrous Sulfate [Feosol 325 mg Tablet] 325 mg PO DAILY 06/09/16 Gabapentin [Neurontin 300 mg Capsule] 300 mg PO Q8 06/09/16 Ipratropium/Albuterol Sulfate [Duoneb 3 ml Ampul] 3 ml NEB [id number] 06/09/16 Lactulose [Cephulac 20 gm/30 ml Syrup UD Cup] 20 gm PO TID 06/09/16 Lisinopril [Prinivil 2.5 mg Tablet] 2.5 mg PO DAILY 06/09/16 Metolazone [Zaroxolyn 5 Mg Tablet] 5 mg PO BID 06/09/16 Midodrine HCl 10 mg PO TID 06/09/16 Spironolactone [Aldactone 25 mg Tablet] 25 mg PO DAILY 06/09/16 Torsemide [Demadex 20 mg Tablet] 20 mg PO BID 06/09/16 Allergies/Adverse Reactions: lorazepam [From Ativan] Adverse Reaction (Verified 05/22/15 20:52) - Social History Lives with: [facility] Family History: CAD, COPD Parental Family History Reviewed: No Children Family History Reviewed: No Sibling(s) Family History Reviewed.: No Smoking Status: Former Smoker Frequency of Alcohol Use: None Hx Recreational Drug Use: No Drugs: None Hx Prescription Drug Abuse: No - Past Medical History Cardiac Medical History: Reports: Hx Atrial Fibrillation, Hx Congestive Heart Failure, Hx Coronary Artery Disease, Hx Hypercholesterolemia, Hx Hypertension Denies: Hx Heart Attack, Hx Peripheral Vascular Disease, Hx Pulmonary Embolism, Hx Heart Murmur Pulmonary Medical History: Reports: Hx Bronchitis, Hx COPD, Hx Pneumonia Denies: Hx Asthma, Hx Respiratory Failure, Hx Sleep Apnea, Hx Tuberculosis Neurological Medical History: Reports: Hx Seizures - Last time 3 to 4 yrs ago. Denies: Hx Cerebrovascular Accident Endocrine Medical History: Reports: Hx Diabetes Mellitus Type 2 Renal/ Medical History: Reports: Hx Benign Prostatic Hyperplasia, Other - Chronic indwelling Blake for unclear reason. Denies: Hx Peritoneal Dialysis Malignancy Medical History: Denies Hx Lung Cancer GI Medical History: Reports: Hx Gastroesophageal Reflux Disease, Hx Ulcer - age 30. Denies: Hx Crohn's Disease, Hx Hiatal Hernia, Hx Irritable Bowel, Hx Liver Failure Musculoskeltal Medical History: Reports Hx Arthritis - All over, Denies Hx Fibromyalgia, Denies Hx Multiple Sclerosis, Denies Hx Muscular Dystrophy Psychiatric Medical History: Reports: Hx Dementia, Other - Recurrent encephalopathy with acute illness Denies: Hx Bipolar Disorder, Hx Depression, Hx Post Traumatic Stress Disorder , Hx Schizophrenia Traumatic Medical History: Denies: Hx Fractures Infectious Medical History: Denies: Hx HIV Hematology: Reports: Anemia - Surgical History Past Surgical History: Reports: Hx Adenoidectomy, Hx Cardiac Surgery - pacemaker defibulator, Hx Internal Defibrillator, Hx Orthopedic Surgery - right knee, left hip, Hx Pacemaker - See Pacemaker Checklist, Hx Tonsillectomy. Denies: Hx Appendectomy, Hx Bowel Surgery, Hx Cholecystectomy, Hx Colostomy, Hx Coronary Artery Bypass Graft, Hx Gastric Bypass Surgery, Hx Herniorrhaphy Review of systems Constitutional: Weakness EENT: Difficulty swallowing Cardiovascular: Chest pain Respiratory: Cough Gastrointestinal: No symptoms reported Geniturinary: No symptoms reported Musculoskeltal: No symptoms reported Skin: No symptoms reported Neurological/Psychological: Anxiety Ojective:Exam Vital Signs: Temp Pulse Resp BP Pulse Ox 97.9 F 72 18 99/84 L 96 06/11/16 20:58 06/11/16 20:58 06/11/16 20:58 06/11/16 20:58 06/11/16 20:58 Intake & Output 06/10/16 06/11/16 06/12/16 06:59 06:59 06:59 Intake Total 1319 1349 Output Total 1325 1250 450 Balance -6 -1250 899 Weight 77 kg - General General Appearance: Alert, Anxious - HEENT Head: Normocephalic Eyes: Normal Pupils: PERRLA Ears: Normal - Respiratory Respiratory Status: Labored Chest Status: Pain with cough - Cardiovascular Rhythm: Regular Pulses: Normal: Radial - Neurological Cognition: Normal Orientation: AAOx4, Alert Speech: Normal Motor exam: Weakness - Psychological Associated symptoms: Normal affect Objective-Diagnostic Laboratory: 06/11/16 07:57 06/11/16 07:57 06/11/16 06/11/16 06/11/16 07:57 07:57 07:57 WBC 6.4 RBC 2.90 L Hgb 8.7 L Hct 26.6 L MCV 92 MCH 29.9 MCHC 32.7 RDW 20.8 H Plt Count 247 Seg Neutrophils % Not Reportable Lymphocytes % Not Reportable Monocytes % Not Reportable Eosinophils % Not Reportable Basophils % Not Reportable Absolute Neutrophils Not Reportable Absolute Lymphocytes Not Reportable Absolute Monocytes Not Reportable Absolute Eosinophils Not Reportable Absolute Basophils Not Reportable Sodium Cancelled Cancelled Potassium Cancelled Cancelled Chloride Cancelled Cancelled Carbon Dioxide Cancelled Cancelled Anion Gap Cancelled Cancelled BUN Cancelled Cancelled Creatinine Cancelled Cancelled Est GFR ( Amer) Cancelled Cancelled Est GFR (Non-Af Amer) Cancelled Cancelled Glucose Cancelled Cancelled Calcium Cancelled Cancelled Magnesium 1.7 Total Bilirubin Cancelled AST Cancelled ALT Cancelled Alkaline Phosphatase Cancelled Total Protein Cancelled Albumin Cancelled 06/11/16 07:57 WBC RBC Hgb Hct MCV MCH MCHC RDW Plt Count Seg Neutrophils % Lymphocytes % Monocytes % Eosinophils % Basophils % Absolute Neutrophils Absolute Lymphocytes Absolute Monocytes Absolute Eosinophils Absolute Basophils Sodium 126.3 L Potassium 4.3 Chloride 92 L Carbon Dioxide 23 Anion Gap 11 BUN 22 H Creatinine 0.96 Est GFR ( Amer) > 60 Est GFR (Non-Af Amer) > 60 Glucose 110 Calcium 8.4 Magnesium Total Bilirubin 1.3 AST 20 ALT 29 Alkaline Phosphatase 125 Total Protein 5.6 L Albumin 2.6 L 06/09/16 18:50 Blake Catheter Urine Culture - Final C.albicans/C.dubliniensis Plan and Recommendation Plan and Recommendation: Patient is very aware that he may aspirate, but also says that he wants to eat regular food and will not eat the pureed foods. He is wanting to go back to SNF and live his life as he wants. He is Ok with DNR and understands his risk. We were interrupted by his therapist for neb treatment and patient said he would be happy for me to visit him at [facility]. No symptoms to address at this time and patient says he is not going to eat the pureed foods, so he doesnt want to "hear about it". Appreciate opportunity to meet this gentleman in spite of fact I could not help him understand his need to change diet. - Time Spent with Patient Time spent with patient: 15 to 30 Minutes - 20 min with patient, 10 min chart review
[2016-06-12] MEDS: IPRATROPIUM/ALBUTEROL 0.5-2.5 MG/3 ML AMPUL NEB SCH ×3 (01:38→13:33)
[2016-06-12] MEDS: PIPERACILLIN SODIUM/TAZOBACTAM 4.5 GM in NORMAL SALINE 100 ML IV SCH ×3 (02:31→11:44)
[2016-06-12] MEDS: ACETAMINOPHEN 325 MG TABLET PO PRN (02:46)
[2016-06-12] MEDS: GABAPENTIN 300 MG CAPSULE PO SCH (05:21)
[2016-06-12] MEDS: HYDROCORTISONE SOD SUCCINATE INJ/PF 100 MG/2 ML SDV IV SCH (05:21)
[2016-06-12] MEDS: BUDESONIDE/FORMOTEROL 80-4.5 MCG 60 PUFF/6.9 GM MDI IH SCH (09:46)
[2016-06-12] MEDS: GUAIFENESIN 600 MG TABLET.SA PO SCH (09:47)
[2016-06-12] MEDS: LACTULOSE SYRUP 20 GM/30 ML UDCUP PO SCH (09:47)
[2016-06-12] MEDS: DOCUSATE SODIUM 100 MG CAPSULE PO SCH (09:47)
[2016-06-12] MEDS: DIGOXIN 0.125 MG TABLET PO SCH (09:48)
[2016-06-12] MEDS: APIXABAN 5 MG TABLET PO SCH (09:48)
[2016-06-12] MEDS: ASPIRIN 81 MG TABLET, CHEWABLE PO SCH (09:48)
[2016-06-12] MEDS: MIDODRINE HCL 5 MG TABLET PO SCH (09:48)
[2016-06-12] MEDS: FERROUS SULFATE 325 MG TABLET PO SCH (09:48)
[2016-06-12] MEDS: VANCOMYCIN HCL 1,000 MG in DEXTROSE 5%-WATER 250 ML IV SCH (09:56)
[2016-06-12] MEDS ORDERED: ONDANSETRON HCL INJ/PF 4 MG/2 ML SDV IV ONE (11:27)
--- NOTE | 2016-06-12 11:39 | PDOC TRANSFER SUMMARY ---
General - Admit/Disc Date/PCP Admission Date/Primary Care Provider: 06/08/16 21:30 KEDAR MACKENZIE MD Share Holder: Marla Alaniz palliative care Discharge Date: 06/12/16 - [facility] - Discharge Diagnosis (1) Recurrent aspiration pneumonia Is this a current diagnosis for this admission?: Yes (2) Acute and chronic respiratory failure with hypoxia Is this a current diagnosis for this admission?: Yes (3) Septic shock Is this a current diagnosis for this admission?: Yes (4) Adrenal insufficiency Is this a current diagnosis for this admission?: Yes (5) Hypotension Is this a current diagnosis for this admission?: YesSummary: Due to severe cardiomyopathy (6) ARF (acute renal failure) Is this a current diagnosis for this admission?: Yes (7) Anemia of chronic disease Is this a current diagnosis for this admission?: Yes (8) Anxiety Is this a current diagnosis for this admission?: Yes (9) BPH (benign prostatic hyperplasia) Is this a current diagnosis for this admission?: Yes (10) Coronary artery disease Is this a current diagnosis for this admission?: Yes (11) Dysphagia, oropharyngeal phase Is this a current diagnosis for this admission?: Yes (12) Dysphagia, pharyngeal phase Is this a current diagnosis for this admission?: Yes (13) Dysphagia, pharyngoesophageal phase Is this a current diagnosis for this admission?: Yes (14) Essential hypertension Is this a current diagnosis for this admission?: Yes (15) GERD (gastroesophageal reflux disease) Is this a current diagnosis for this admission?: Yes (16) Hyperkalemia Is this a current diagnosis for this admission?: Yes (17) Hyponatremia Is this a current diagnosis for this admission?: Yes (18) Seizure disorder Is this a current diagnosis for this admission?: Yes (19) Sleep apnea syndrome Is this a current diagnosis for this admission?: Yes (20) Afib Is this a current diagnosis for this admission?: Yes (21) COPD (chronic obstructive pulmonary disease) Is this a current diagnosis for this admission?: Yes (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 Accepts the aspiration risk. Discharge Activity: Activity As Tolerated, Balance Activity w/Rest, Weigh Daily Home Medications: Acetaminophen [Tylenol] 650 mg PO Q4HP PRN 06/09/16 Albuterol Sulfate [Ventolin 0.083% Neb 2.5 mg/3 mL Ampul] 1 vial NEB RTQ4HP PRN 06/09/16 Apixaban [Eliquis 5 mg Tablet] 5 mg PO BID 06/09/16 Aspirin [Aspirin 81 mg Chewable Tablet] 81 mg PO DAILY 06/09/16 Budesonide/Formoterol Fumarate [Symbicort HFA 80-4.5 mcg Inhaler 6.9 gm] 2 puff IH Q12 06/09/16 Digoxin [Lanoxin 0.125 mg Tablet] 0.125 mg PO DAILY 06/09/16 Docusate Sodium [Colace 100 mg Capsule] 100 mg PO BID 06/09/16 Eplerenone [Inspra 25 mg Tablet] 25 mg PO BID 06/09/16 Ferrous Sulfate [Feosol 325 mg Tablet] 325 mg PO DAILY 06/09/16 Gabapentin [Neurontin 300 mg Capsule] 300 mg PO Q8 06/09/16 Ipratropium/Albuterol Sulfate [Duoneb 3 ml Ampul] 3 ml NEB [id number] 06/09/16 Lactulose [Cephulac Syrup 20 gm/30 ml Udcup] 20 gm PO TID 06/09/16 Lisinopril [Prinivil 2.5 mg Tablet] 2.5 mg PO DAILY 06/09/16 Midodrine HCl 10 mg PO TID 06/09/16 Torsemide [Demadex 20 mg Tablet] 20 mg PO BID 06/09/16 Acidoph/L.bulg/Bif.b/S.thermop [Bacid Caplet] 1 each PO BID #20 tablet 06/12/16 Amox Tr/Potassium Clavulanate [Augmentin 875-125 mg Tablet] 1 tab PO BID #14 tablet 06/12/16 Guaifenesin [Mucinex Sr 600 mg Tablet.sa] 1,200 mg PO Q12 #12 tablet.sa Hydrocortisone [Cortef 10 mg Tablet] 10 mg PO Q12 tablet 06/12/16 Ondansetron [Zofran Odt 4 mg Tablet] 1 - 2 tab PO Q4HP PRN #10 tab.rapdis History of Present Illness Admission Date/PCP: 06/08/16 21:30 KEDAR MACKENZIE MD Patient complains of: Shortness of breath History of Present Illness: TUTU MURRAY is a 75 year old male with an extensive past medical history of oxygen dependent COPD, coronary artery disease, atrial fibrillation, systolic heart failure with an ejection fraction of 25% with biventricular pacer , pressor dependent with midodrine 3 times a day, recurrent aspiration pneumonia and encephalopathy. Presents after a likely aspiration event resulting in shortness of breath, a right-sided infiltrate on chest x-ray and profound hypotension unresponsive to IV fluid challenge placed on the Levophed. Former swallow studies have identified he is an aspiration risk and several recent admissions confirm. He is currently with dyspnea and rhonchi audible at bedside and is referred to the hospitalist for admission, refusing nothing by mouth status or NG tube. The patient was found to be in septic shock secondary to recurrent aspiration pneumonia and was referred to the hospitalist remission and management. Hospital Course Hospital Course: The patient was admitted to ICU given the need for pressors. The patient was placed on scheduled nebs, IV antibiotic coverage, expectorants, supplemental O2 , senna spirometry and flutter valve. Sputum culture was obtained with only Janice. Repeat chest x-ray was suggestive improvement. The patient was transitioned back to baseline oxygen. The patient was seen by speech therapy and recommendations were made due to findings on a modified for pured diet. The patient was absolutely adamant that he was not wanting to comply with a pur ed diet stating that he wanted regular foods. The patient stated he was willing to accept the consequences of a re-aspiration which is most likely. Given the patient's multiple comorbidities including severe cardiomyopathy, persistent hypotension and recurrent aspiration pneumonia the patient was seen and evaluated by palliative care. The patient has elected to proceed with palliative management including a DO NOT RESUSCITATE and DO NOT INTUBATE status Physical Exam Vital Signs: Temp Pulse Resp BP Pulse Ox 97.6 F 73 20 84/47 L 100 06/12/16 07:35 06/12/16 07:35 06/12/16 07:35 06/12/16 07:35 06/12/16 07:35 Intake & Output 06/10/16 06/11/16 06/12/16 23:59 23:59 23:59 Intake Total 1349 900 Output Total 550 1150 700 Balance -550 199 200 Weight 83.7 kg General appearance: PRESENT: no acute distress, disheveled, well-developed, well -nourished Head exam: PRESENT: atraumatic, normocephalic Eye exam: PRESENT: conjunctiva pink, EOMI, PERRLA. ABSENT: scleral icterus Ear exam: PRESENT: normal external ear exam Mouth exam: PRESENT: moist, tongue midline Neck exam: ABSENT: carotid bruit, JVD, lymphadenopathy, thyromegaly Respiratory exam: PRESENT: rhonchi, symmetrical, unlabored. ABSENT: rales, tachypnea, wheezes Cardiovascular exam: PRESENT: RRR. ABSENT: diastolic murmur, rubs, systolic murmur Pulses: PRESENT: normal dorsalis pedis pul Vascular exam: PRESENT: normal capillary refill GI/Abdominal exam: PRESENT: normal bowel sounds, soft. ABSENT: distended, guarding, mass, organolmegaly, rebound, tenderness Rectal exam: PRESENT: deferred Extremities exam: PRESENT: full ROM. ABSENT: calf tenderness, clubbing, pedal edema Neurological exam: PRESENT: alert, awake, oriented to person, oriented to place , oriented to time, oriented to situation, CN II-XII grossly intact. ABSENT: motor sensory deficit Psychiatric exam: PRESENT: appropriate affect, normal mood. ABSENT: homicidal ideation, suicidal ideation Skin exam: PRESENT: dry, intact, warm. ABSENT: cyanosis, rash Results Laboratory Results: Labs- Last Values WBC 6.4 10^3/uL (4.0-10.5) 06/11/16 07:57 RBC 2.90 10^6/uL (4.35-5.55) L 06/11/16 07:57 Hgb 8.7 g/dL (13.5-17.0) L 06/11/16 07:57 Hct 26.6 % (37.9-51.0) L 06/11/16 07:57 MCV 92 fl (80-97) 06/11/16 07:57 MCH 29.9 pg (27.0-33.4) 06/11/16 07:57 MCHC 32.7 g/dL (32.0-36.0) 06/11/16 07:57 RDW 20.8 % (11.5-14.0) H 06/11/16 07:57 Plt Count 247 10^3/uL (150-450) 06/11/16 07:57 Total Counted 100 06/11/16 07:57 Seg Neutrophils % Not Reportable 06/11/16 07:57 Seg Neuts % (Manual) 73 % (42-78) 06/11/16 07:57 Band Neutrophils % 6 % (3-5) H 06/11/16 07:57 Lymphocytes % Not Reportable 06/11/16 07:57 Lymphocytes % (Manual) 9 % (13-45) L 06/11/16 07:57 Atypical Lymphs % 1 % (0) 06/10/16 06:26 Monocytes % Not Reportable 06/11/16 07:57 Monocytes % (Manual) 11 % (3-13) 06/11/16 07:57 Eosinophils % Not Reportable 06/11/16 07:57 Eosinophils % (Manual) 0 % (0-6) 06/11/16 07:57 Basophils % Not Reportable 06/11/16 07:57 Basophils % (Manual) 0 % (0-2) 06/11/16 07:57 Myelocytes % 1 % (0) H 06/11/16 07:57 Absolute Neutrophils Not Reportable 06/11/16 07:57 Abs Neuts (Manual) 5.1 10^3/uL (1.7-8.2) 06/11/16 07:57 Absolute Lymphocytes Not Reportable 06/11/16 07:57 Abs Lymphs (Manual) 0.6 10^3/uL (0.5-4.7) 06/11/16 07:57 Absolute Monocytes Not Reportable 06/11/16 07:57 Abs Monocytes (Manual) 0.7 10^3/uL (0.1-1.4) 06/11/16 07:57 Absolute Eosinophils Not Reportable 06/11/16 07:57 Absolute Eos (Manual) 0.0 10^3/uL (0.0-0.6) 06/11/16 07:57 Absolute Basophils Not Reportable 06/11/16 07:57 Abs Basophils (Manual) 0.0 10^3/uL (0.0-0.2) 06/11/16 07:57 Platelet Estimate Cancelled 06/08/16 16:50 Clumped Platelets PRESENT 06/11/16 07:57 Platelet Comment ADEQUATE 06/11/16 07:57 Polychromasia SLIGHT 06/11/16 07:57 Poikilocytosis 1+ 06/11/16 07:57 Anisocytosis 2+ 06/11/16 07:57 Target Cells SLIGHT 06/11/16 07:57 Tear Drop Cells SLIGHT 06/10/16 06:26 Ovalocytes 1+ 06/11/16 07:57 Christie Cells SLIGHT 06/11/16 07:57 PT 22.9 SEC (11.4-15.4) H 06/08/16 16:50 INR 1.94 06/08/16 16:50 APTT 56.3 SEC (23.5-35.8) H 06/08/16 16:50 Carbonic Acid 1.37 mmol/L (1.05-1.35) H 06/09/16 06:20 HCO3/H2CO3 Ratio 19:1 06/09/16 06:20 ABG pH 7.39 (7.35-7.45) 06/09/16 06:20 ABG pCO2 45.4 mmHg (35-45) H 06/09/16 06:20 ABG pO2 63.8 mmHg (80-100) L 06/09/16 06:20 ABG HCO3 26.7 mmol/L (20-26) H 06/09/16 06:20 ABG Total CO2 28.1 mmol/L (23-27) H 06/09/16 06:20 ABG O2 Saturation 92.1 % (94-98) L 06/09/16 06:20 ABG Base Excess 1.4 mmol/L 06/09/16 06:20 VBG pH 7.41 (7.30-7.42) 06/08/16 18:45 VBG pCO2 43.2 mmHg (35-63) 06/08/16 18:45 VBG HCO3 26.9 mmol/L (20-32) 06/08/16 18:45 VBG Base Excess 2.0 mmol/L 06/08/16 18:45 FiO2 3L 06/09/16 06:20 Sodium 126.3 mmol/L (137-145) L 06/11/16 07:57 Potassium 4.3 mmol/L (3.6-5.0) 06/11/16 07:57 Chloride 92 mmol/L (98-107) L 06/11/16 07:57 Carbon Dioxide 23 mmol/L (22-30) 06/11/16 07:57 Anion Gap 11 (5-19) 06/11/16 07:57 BUN 22 mg/dL (7-20) H 06/11/16 07:57 Creatinine 0.96 mg/dL (0.52-1.25) 06/11/16 07:57 Est GFR ( Amer) > 60 (>60) 06/11/16 07:57 Est GFR (Non-Af Amer) > 60 (>60) 06/11/16 07:57 Glucose 110 mg/dL (75-110) 06/11/16 07:57 POC Glucose 188 mg/dL (70-110) H 06/12/16 11:02 Lactic Acid 0.9 mmol/L (0.7-2.1) 06/08/16 20:05 Calcium 8.4 mg/dL (8.4-10.2) 06/11/16 07:57 Magnesium 1.7 mg/dL (1.6-2.3) 06/11/16 07:57 Total Bilirubin 1.3 mg/dL (0.2-1.3) 06/11/16 07:57 Direct Bilirubin 0.8 mg/dL (0.0-0.4) H 06/11/16 07:57 Indirect Bilirubin Not Reportable 06/11/16 07:57 Neonat Total Bilirubin Not Reportable 06/11/16 07:57 AST 20 U/L (17-59) 06/11/16 07:57 ALT 29 U/L (21-72) 06/11/16 07:57 Alkaline Phosphatase 125 U/L (38-126) 06/11/16 07:57 Creatine Kinase 25 U/L (55-170) L 06/08/16 16:50 CK-MB (CK-2) 1.20 ng/mL (<4.55) 06/08/16 16:50 Troponin I 0.031 ng/mL 06/08/16 16:50 NT-Pro-B Natriuret Pep 65243 pg/mL (5-900) H 06/08/16 16:50 Total Protein 5.6 g/dL (6.3-8.2) L 06/11/16 07:57 Albumin 2.6 g/dL (3.5-5.0) L 06/11/16 07:57 Lipase 28.3 U/L (23-300) 06/08/16 16:50 Urine Color YELLOW 06/08/16 18:45 Urine Appearance SLIGHTLY-CLOUDY 06/08/16 18:45 Urine pH 9.0 (5.0-9.0) 06/08/16 18:45 Ur Specific [place] 1.006 06/08/16 18:45 Urine Protein NEGATIVE mg/dL (NEGATIVE) 06/08/16 18:45 Urine Glucose (UA) NEGATIVE mg/dL (NEGATIVE) 06/08/16 18:45 Urine Ketones NEGATIVE mg/dL (NEGATIVE) 06/08/16 18:45 Urine Blood LARGE (NEGATIVE) H 06/08/16 18:45 Urine Nitrite NEGATIVE (NEGATIVE) 06/08/16 18:45 Urine Bilirubin NEGATIVE (NEGATIVE) 06/08/16 18:45 Urine Urobilinogen NEGATIVE mg/dL (<2.0) 06/08/16 18:45 Ur Leukocyte Esterase LARGE (NEGATIVE) H 06/08/16 18:45 Urine WBC (Auto) 138 /HPF 06/08/16 18:45 Urine RBC (Auto) 124 /HPF 06/08/16 18:45 Urine Bacteria (Auto) TRACE /HPF 06/08/16 18:45 Squamous Epi Cells Auto <1 /HPF 06/08/16 18:45 Amorphous Sediment Auto TRACE /HPF 06/08/16 18:45 Urine Mucus (Auto) RARE /LPF 06/08/16 18:45 Urine Ascorbic Acid NEGATIVE (NEGATIVE) 06/08/16 18:45 Time Trough Drawn 1100 06/11/16 11:00 Vancomycin Trough 12.4 ug/mL (5.0-20.0) 06/11/16 11:00 Slides for Path Review PATHOLOGIST REVIEWED 06/10/16 06:26 Blood Type O POSITIVE 06/08/16 16:50 Antibody Screen NEGATIVE 06/08/16 16:50 06/09/16 18:50 Urine Culture - Final Blake Catheter C.albicans/C.dubliniensis 06/08/16 22:27 Blood Culture - Preliminary Blood NO GROWTH AFTER 72 HOURS 06/08/16 20:05 Blood Culture - Preliminary Blood NO GROWTH AFTER 72 HOURS Impressions: Modified Barium Swallow 06/10/16 07:30 IMPRESSION: TRACE LARYNGEAL PENETRATION WITH THIN LIQUIDS AND POST SWALLOW RESIDUALS WITHOUT EVIDENCE OF ASPIRATION.PLEASE SEE SPEECH PATHOLOGIST REPORT FOR OTHER FINDINGS AND RECOMMENDATIONS. Chest X-Ray 06/11/16 06:00 IMPRESSION: Persistent airspace disease in the periphery of the right upper lobe near the minor fissure, and left lung base. Transfer Plan - Time Spent with Patient Time spent with patient: Greater than 30 Minutes Qualifiers PATEINT BEING DISCHARGED WITH ANY OF THE FOLLOWING DIAGNOSIS?: No
[2016-06-12 12:03] VITALS: BP 103/69
[2016-06-12] MEDS ORDERED: HYDROCORTISONE 10 MG TABLET PO SCH (22:00)
== END 2016-06-12 15:40 | DRG 871 ==
LOC: ER 16:48 → EH 21:30 → 3N 06-11 10:08
PROVIDERS: ADMIT Internal Medicine; ATTEND Internal Medicine
PROC: 5A09457 Assistance with Respiratory Ventilation, 24-96 Consecutive Hours, Continuous Positive Airway Pressure (ICD-10-PCS; principal; 2016-06-08)
PROC: 02HV33Z Insertion of Infusion Device into Superior Vena Cava, Percutaneous Approach (ICD-10-PCS; 2016-06-09)
DX: A41.9 Sepsis, unspecified organism (principal); J69.0 Pneumonitis due to inhalation of food and vomit; J96.21 Acute and chronic respiratory failure with hypoxia; R65.21 Severe sepsis with septic shock; E27.40 Unspecified adrenocortical insufficiency; N17.9 Acute kidney failure, unspecified; I42.9 Cardiomyopathy, unspecified; I50.42 Chronic combined systolic (congestive) and diastolic (congestive) heart failure; E87.1 Hypo-osmolality and hyponatremia; N39.0 Urinary tract infection, site not specified; J44.0 Chronic obstructive pulmonary disease with (acute) lower respiratory infection; J44.1 Chronic obstructive pulmonary disease with (acute) exacerbation; D63.8 Anemia in other chronic diseases classified elsewhere; F41.9 Anxiety disorder, unspecified; N40.0 Benign prostatic hyperplasia without lower urinary tract symptoms; I25.10 Atherosclerotic heart disease of native coronary artery without angina pectoris; R13.12 Dysphagia, oropharyngeal phase; R13.14 Dysphagia, pharyngoesophageal phase; R13.13 Dysphagia, pharyngeal phase; I11.0 Hypertensive heart disease with heart failure; K21.9 Gastro-esophageal reflux disease without esophagitis; E87.5 Hyperkalemia; G40.909 Epilepsy, unspecified, not intractable, without status epilepticus; G47.30 Sleep apnea, unspecified; I48.2 Chronic atrial fibrillation; J44.9 Chronic obstructive pulmonary disease, unspecified; E11.9 Type 2 diabetes mellitus without complications; M19.90 Unspecified osteoarthritis, unspecified site; F03.90 Unspecified dementia, unspecified severity, without behavioral disturbance, psychotic disturbance, mood disturbance, and anxiety; Z66 Do not resuscitate; Z79.01 Long term (current) use of anticoagulants; Z87.891 Personal history of nicotine dependence; Z95.810 Presence of automatic (implantable) cardiac defibrillator; Z79.82 Long term (current) use of aspirin; Z79.899 Other long term (current) drug therapy; Z99.81 Dependence on supplemental oxygen; Z51.5 Encounter for palliative care; Z88.8 Allergy status to other drugs, medicaments and biological substances; Z83.6 Family history of other diseases of the respiratory system; Z82.49 Family history of ischemic heart disease and other diseases of the circulatory system
CPT/HCPCS: 36415; 51702; 71010; 74230; 80048; 80053; 80076; 80202; 81001; 82550; 82553; 82803; 82962; 83605; 83690; 83735; 83880; 84484; 85025; 85610; 85730; 86850; 86900; 86901; 87040; 87086; 93005; 93010; 94660; 94667; 94668; 96365; 96366; 96368; 96375; 99291; C1751; G8996-GN; G8997-GN; J1720; J1956; J2405; J2543; J3370; J3490; J7030; J7060; J7620

== ENCOUNTER 2016-06-18 09:56 | Inpatient (IN) | payer MEDICARE ==
[2016-06-18] MEDS ORDERED: NORMAL SALINE 1000 ML 1,000 ML IV ONE ×2 (10:10→10:31)
[2016-06-18] MEDS ORDERED: PIPERACILLIN/TAZOBACTAM 3.375 GM VIAL IV ONE (10:11)
[2016-06-18] MEDS ORDERED: ACETAMINOPHEN 650 MG SUPP.RECT PR ONE (10:18)
[2016-06-18 10:23] LABS: HEMATOCRIT 31.6 % (37.9-51.0); HEMOGLOBIN 10.4 g/dL (13.5-17.0); HGB HCT DIFFERENCE -0.4; MEAN CORPUSCULAR HEMOGLOBIN 29.8 pg (27.0-33.4); MEAN CORPUSCULAR HGB CONC 32.8 g/dL (32.0-36.0); MEAN CORPUSCULAR VOLUME 91 fl (80-97); RED BLOOD COUNT 3.48 10^6/uL (4.35-5.55); RED CELL DISTRIBUTION WIDTH 19.2 % (11.5-14.0)
[2016-06-18 10:26] LABS: VENOUS BLOOD BASE EXCESS 13.8 mmol/L; VENOUS BLOOD HCO3 40.7 mmol/L (20-32); VENOUS BLOOD PCO2 59.6 mmHg (35-63); VENOUS BLOOD PH 7.45 (7.30-7.42)
[2016-06-18] MEDS ORDERED: NOREPINEPHRINE BITARTRATE INJ/PF 4 MG/4 ML SDV IV ONE (10:27)
[2016-06-18 10:28] LABS: PROTHROMBIN TIME 20.7 SEC (11.4-15.4)
[2016-06-18] MEDS ORDERED: DEXAMETHASONE SOD PHOS INJ 10 MG/1 ML VIAL IV ONE (10:32)
[2016-06-18 10:40] LABS: ALANINE AMINOTRANSFERASE 34 U/L (21-72); ALBUMIN 2.7 g/dL (3.5-5.0); ALKALINE PHOSPHATASE 162 U/L (38-126); ASPARTATE AMINO TRANSFERASE 24 U/L (17-59); BILIRUBIN,DIRECT 1.3 mg/dL (0.0-0.4); BILIRUBIN,TOTAL 2.6 mg/dL (0.2-1.3); BLOOD UREA NITROGEN 35 mg/dL (7-20); CHLORIDE 74 mmol/L (98-107); CREATININE RESULT 1.34 mg/dL (0.52-1.25); GLUCOSE 96 mg/dL (75-110); POTASSIUM 3.2 mmol/L (3.6-5.0); SODIUM 125.5 mmol/L (137-145); TOTAL PROTEIN 5.8 g/dL (6.3-8.2)
[2016-06-18 10:46] LABS: BAND NEUTROPHILS % (MANUAL) 5 % (3-5); BASOPHILS % (MANUAL) 0 % (0-2); EOSINOPHILS % (MANUAL) 0 % (0-6); LYMPHOCYTES % (MANUAL) 1 % (13-45); TOTAL CELLS COUNTED 100
[2016-06-18 10:49] LABS: ANISOCYTOSIS 1+; TOXIC GRANULATION 1+; TOXIC VACUOLATION PRESENT
[2016-06-18 10:50] LABS: WHITE BLOOD COUNT 32.1 10^3/uL (4.0-10.5)
[2016-06-18 10:53] LABS: ANION GAP 9 (5-19)
[2016-06-18 10:55] LABS: CARBON DIOXIDE 43 mmol/L (22-30)
[2016-06-18 11:13] LABS: APPEARANCE,URINE CLOUDY; BILIRUBIN,URINE SMALL (NEGATIVE); GLUCOSE, URINE NEGATIVE (NEGATIVE); KETONES,URINE NEGATIVE (NEGATIVE); LEUKOCYTE ESTERASE,URINE MODERATE (NEGATIVE); NITRITE,URINE NEGATIVE (NEGATIVE); PROTEIN,URINE 100 mg/dL (NEGATIVE)
[2016-06-18 11:32] LABS: MAGNESIUM 1.5 mg/dL (1.6-2.3)
[2016-06-18 12:07] LABS: LIPASE < 10.0 U/L (23-300)
--- NOTE | 2016-06-18 12:09 | ER Document Report ---
ED General - General Chief Complaint: Breathing Difficulty Stated Complaint: RESPIRATORY DISTRESS/ALTERED MENTAL STATUS TRAVEL OUTSIDE OF THE [place] IN LAST 30 DAYS: No - HPI Patient complains to provider of: respiratory distress Notes: Patient presented from a local [facility] facility via EMS being assisted respirations by [id number] after being found to be severely hypoxic with SPO2 of 50. Patient also had a temperature of 104. Patient was recently discharged from hospital after finding aspiration pneumonia. Patient's was verbal upon his arrival but was mildly confused. Patient also had a very low blood pressure systolics in the 40s to 60s. Patient has indwelling Blake catheter.. Patient did come with a packet paperwork with both saying patient was a full code and also patient was a DO NOT RESUSCITATE. Because of this not being clear family was allowed recommend back to confirm. States the patient does wish not to have intubation performed however does agree with medications. Cause of the low blood pressure I did immediately asked family at their acute central line states patient had this upon his last admission to the hospital and they agree with this procedure. - Related Data Allergies/Adverse Reactions: lorazepam [From Ativan] Adverse Reaction (Verified 05/22/15 20:52) Past Medical History - Social History Smoking Status: Never Smoker Chew tobacco use (# tins/day): No Frequency of alcohol use: None Family History: CAD, COPD - Past Medical History Cardiac Medical History: Reports: Hx Atrial Fibrillation, Hx Congestive Heart Failure, Hx Coronary Artery Disease, Hx Hypercholesterolemia, Hx Hypertension Denies: Hx Heart Attack, Hx Peripheral Vascular Disease, Hx Pulmonary Embolism, Hx Heart Murmur Pulmonary Medical History: Reports: Hx Bronchitis, Hx COPD, Hx Pneumonia Denies: Hx Asthma, Hx Respiratory Failure, Hx Sleep Apnea, Hx Tuberculosis Neurological Medical History: Reports: Hx Seizures - Last time 3 to 4 yrs ago. Denies: Hx Cerebrovascular Accident Endocrine Medical History: Reports: Hx Diabetes Mellitus Type 2 Renal/ Medical History: Reports: Hx Benign Prostatic Hyperplasia. Denies: Hx Peritoneal Dialysis Malignancy Medical History: Denies Hx Lung Cancer GI Medical History: Reports: Hx Gastroesophageal Reflux Disease, Hx Ulcer - age 30. Denies: Hx Crohn's Disease, Hx Hiatal Hernia, Hx Irritable Bowel, Hx Liver Failure Musculoskeltal Medical History: Reports Hx Arthritis - All over, Denies Hx Fibromyalgia, Denies Hx Multiple Sclerosis, Denies Hx Muscular Dystrophy Psychiatric Medical History: Reports: Hx Dementia Denies: Hx Bipolar Disorder, Hx Depression, Hx Post Traumatic Stress Disorder , Hx Schizophrenia Traumatic Medical History: Denies: Hx Fractures Infectious Medical History: Denies: Hx HIV Past Surgical History: Reports: Hx Adenoidectomy, Hx Cardiac Surgery - pacemaker defibulator, Hx Internal Defibrillator, Hx Orthopedic Surgery - right knee, left hip, Hx Pacemaker - See Pacemaker Checklist, Hx Tonsillectomy. Denies: Hx Appendectomy, Hx Bowel Surgery, Hx Cholecystectomy, Hx Colostomy, Hx Coronary Artery Bypass Graft, Hx Gastric Bypass Surgery, Hx Herniorrhaphy - Immunizations Hx Diphtheria, Pertussis, Tetanus Vaccination: No Hx Pneumococcal Vaccination: 11/22/14 Review of Systems - Review of Systems -: Yes ROS unobtainable due to patient's medical condition - Mildly altered septic Physical Exam - Vital signs Vitals: Pulse Ox 97 06/18/16 10:01 Interpretation: Hypotensive, Hypoxic, Febrile - General General appearance: Lethargic In distress: Severe - HEENT Head: Normocephalic, Atraumatic Eyes: Normal Pupils: PERRL - Respiratory Respiratory status: No respiratory distress, 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 No: Fredi's sign - Neurological Neuro grossly intact: Yes Cognition: Normal Orientation: AAOx4 Eliud Coma Scale Eye Opening: Spontaneous Eliud Coma Scale Verbal: Oriented Eliud Coma Scale Motor: Obeys Commands Eliud Coma Scale Total: 15 Speech: Normal Motor strength normal: LUE, RUE, LLE, RLE Sensory: Normal - Psychological Associated symptoms: Normal affect, Normal mood - Skin Skin Temperature: Warm Skin Moisture: Dry Skin Color: Normal Course - Re-evaluation Re-evalutation: 06/18/16 15:24 Because patient DO NOT RESUSCITATE status patient was placed on BiPAP Patient came in severely hypotensive with verbal consent central line was placed in the right IJ patient that he received 2 fluid boluses review the patient's recent visit does show patient does having adrenal insufficiency therefore was given a dose of Decadron. To avoid any alteration in cortisol testing. Patient was also started on Zosyn. Lab work does confirm sepsis more likely pneumonia possible UTI. Patient's blood pressure did improve after fluid resuscitation and Levophed administration. Patient was placed in ICU for further evaluation. 06/18/16 15:25 - Vital Signs Vital signs: Temp Pulse Resp BP Pulse Ox 99.9 F 17 114/67 99 06/18/16 14:51 06/18/16 14:51 06/18/16 14:51 06/18/16 14:51 - Laboratory Result Diagrams: 06/18/16 10:00 06/18/16 10:00 Laboratory results interpreted by me: 06/18/16 06/18/16 06/18/16 10:00 10:00 10:00 WBC 32.1 H* D RBC 3.48 L Hgb 10.4 L Hct 31.6 L RDW 19.2 H Seg Neuts % (Manual) 88 H Lymphocytes % (Manual) 1 L Abs Neuts (Manual) 29.9 H Abs Lymphs (Manual) 0.3 L Abs Monocytes (Manual) 1.9 H PT 20.7 H VBG pH VBG HCO3 Sodium 125.5 L Potassium 3.2 L Chloride 74 L Carbon Dioxide 43 H* BUN 35 H Creatinine 1.34 H Est GFR (Non-Af Amer) 52 L Calcium 8.0 L Magnesium Total Bilirubin 2.6 H Direct Bilirubin 1.3 H Alkaline Phosphatase 162 H NT-Pro-B Natriuret Pep Total Protein 5.8 L Albumin 2.7 L Lipase Urine Protein Urine Bilirubin Urine Urobilinogen Ur Leukocyte Esterase 06/18/16 06/18/16 06/18/16 10:00 10:00 10:00 WBC RBC Hgb Hct RDW Seg Neuts % (Manual) Lymphocytes % (Manual) Abs Neuts (Manual) Abs Lymphs (Manual) Abs Monocytes (Manual) PT VBG pH 7.45 H VBG HCO3 40.7 H Sodium Potassium Chloride Carbon Dioxide BUN Creatinine Est GFR (Non-Af Amer) Calcium Magnesium 1.5 L Total Bilirubin Direct Bilirubin Alkaline Phosphatase NT-Pro-B Natriuret Pep 43973 H Total Protein Albumin Lipase < 10.0 L Urine Protein Urine Bilirubin Urine Urobilinogen Ur Leukocyte Esterase 06/18/16 10:36 WBC RBC Hgb Hct RDW Seg Neuts % (Manual) Lymphocytes % (Manual) Abs Neuts (Manual) Abs Lymphs (Manual) Abs Monocytes (Manual) PT VBG pH VBG HCO3 Sodium Potassium Chloride Carbon Dioxide BUN Creatinine Est GFR (Non-Af Amer) Calcium Magnesium Total Bilirubin Direct Bilirubin Alkaline Phosphatase NT-Pro-B Natriuret Pep Total Protein Albumin Lipase Urine Protein 100 H Urine Bilirubin SMALL H Urine Urobilinogen 4.0 H Ur Leukocyte Esterase MODERATE H Procedures - Central Line Right Internal jugular Consent obtained: Yes Central line pre-insertion: Sterile PPE donned, Chloraprep applied, Sterile drapes applied Central line lumen type: Triple Anesthetic type: 1% Lidocaine mL's of anesthesia: 2 Ultrasound guided: Yes CM at insertion site: 20 Line secured with sutures: Yes Central line post-insertion: Blood return from lumens, Biopatch applied, Sutured , Sterile dressing applied, Position confirmed w/ CXR Number of attempts: 1 Complications: No Critical Care Note - Critical Care Note Total time excluding time spent on procedures (mins): 50 Comments: Multiple evaluation for patient with sepsis time excludes procedures Discharge - Discharge Clinical Impression: Septic shock, Do not resuscitate, [facility] current use of anticoagulant therapy Pneumonia Qualifiers: Pneumonia type: due to unspecified organism Laterality: unspecified laterality Lung location: unspecified part of lung Qualified Code(s): J18.9 - Pneumonia, unspecified organism Urinary tract infection associated with indwelling urethral catheter Qualifiers: Encounter type: initial encounter Qualified Code(s): T83.511A - Infection and inflammatory reaction due to indwelling urethral catheter, initial encounter Admitting Provider: [place] [email or web address] Unit Admitted: ICU
[2016-06-18] MEDS ORDERED: VANCOMYCIN HCL 0 MG in DEXTROSE 5%-WATER 250 ML IV NR (12:45)
--- NOTE | 2016-06-18 12:53 | PDOC H&P ---
History of Present Illness Admission Date/PCP: 06/18/16 12:38 Patient complains of: Shortness of breath altered mentation History of Present Illness: TUTU MURRAY is a 75 year old male with an extensive past medical history including : end-stage congestive heart failure with an ejection fraction of 25% , S/P biventricular pacemaker, coronary artery disease, atrial fibrillation, COPD with persistent tobacco abuse, recurrent encephalopathy, recurrent aspiration pneumonia, and dementia with sundowning and agitation. Just discharged from [facility] 6 days ago ; was sent from [place] for evaluation of shortness of breath and confusion In the ED he was found semi-responsive; hypotensive and in mild respiratory distress He was placed on BiPAP support ,treated with IV fluids pressors antibiotics and admitted to the intensive care unit with the diagnosis of sepsis pneumonia and UTI Past Medical History Cardiac Medical History: Reports: Atrial Fibrillation, Congestive Heart Failure , Coronary Artery Disease, Hyperlipidema, Hypertension Denies: Myocardial Infarction, Peripheral Vascular Disease, Pulmonary Embolism, Heart Murmur Pulmonary Medical History: Reports: Bronchitis, Chronic Obstructive Pulmonary Disease (COPD), Pneumonia Denies: Asthma, Respiratory Failure, Sleep Apnea, Tuberculosis Neurological Medical History: Reports: Seizures - Last time 3 to 4 yrs ago Endocrine Medical History: Reports: Diabetes Mellitus Type 2 Renal/ Medical History: Malignancy Medical History: Denies: Lung Cancer GI Medical History: Reports: Gastroesophageal Reflux Disease Denies: Crohn's Disease, Hiatal Hernia Musculoskeltal Medical History: Reports: Arthritis - All over Denies: Fibromyalgia Psychiatric Medical History: Reports: Dementia Denies: Bipolar Disorder, Depression, Post Traumatic Stress Disorder Hematology: Reports: Anemia Infectious Medical History: Denies: HIV Past Surgical History Past Surgical History: Reports: Internal Defibrillator, Orthopedic Surgery - right knee, left hip, Pacemaker - See Pacemaker Checklist, Tonsillectomy Denies: Appendectomy, Cholecystectomy, Colostomy, Coronary Artery Bypass Graft, Gastric Bypass Surgery, Herniorrhaphy Social History Smoking Status: Never Smoker Frequency of Alcohol Use: None Hx Recreational Drug Use: No Drugs: None Hx Prescription Drug Abuse: No - Advance Directive Resuscitation Status: Do Not Intubate Surrogate healthcare decision maker:: daughter Gem [phone] Family History Family History: CAD, COPD Parental Family History Reviewed: Yes - father of heart disease Children Family History Reviewed: Yes Sibling(s) Family History Reviewed.: Yes Medication/Allergy Home Medications: Acetaminophen [Tylenol] 650 mg PO Q4HP PRN 06/09/16 Albuterol Sulfate [Ventolin 0.083% Neb 2.5 mg/3 mL Ampul] 1 vial NEB RTQ4HP PRN 06/09/16 Apixaban [Eliquis 5 mg Tablet] 5 mg PO BID 06/09/16 Aspirin [Aspirin 81 mg Chewable Tablet] 81 mg PO DAILY 06/09/16 Budesonide/Formoterol Fumarate [Symbicort HFA 80-4.5 mcg Inhaler 6.9 gm] 2 puff IH Q12 06/09/16 Digoxin [Lanoxin 0.125 mg Tablet] 0.125 mg PO DAILY 06/09/16 Docusate Sodium [Colace 100 mg Capsule] 100 mg PO BID 06/09/16 Eplerenone [Inspra 25 mg Tablet] 25 mg PO BID 06/09/16 Ferrous Sulfate [Feosol 325 mg Tablet] 325 mg PO DAILY 06/09/16 Gabapentin [Neurontin 300 mg Capsule] 300 mg PO Q8 06/09/16 Ipratropium/Albuterol Sulfate [Duoneb 3 ml Ampul] 3 ml NEB [id number] 06/09/16 Lactulose [Cephulac Syrup 20 gm/30 ml Udcup] 20 gm PO TID 06/09/16 Lisinopril [Prinivil 2.5 mg Tablet] 2.5 mg PO DAILY 06/09/16 Midodrine HCl 10 mg PO TID 06/09/16 Torsemide [Demadex 20 mg Tablet] 20 mg PO BID 06/09/16 Acidoph/L.bulg/Bif.b/S.thermop [Bacid Caplet] 1 each PO BID #20 tablet 06/12/16 Amox Tr/Potassium Clavulanate [Augmentin 875-125 mg Tablet] 1 tab PO BID #14 tablet 06/12/16 Guaifenesin [Mucinex Sr 600 mg Tablet.sa] 1,200 mg PO Q12 #12 tablet.sa Hydrocortisone [Cortef 10 mg Tablet] 10 mg PO Q12 tablet 06/12/16 Ondansetron [Zofran Odt 4 mg Tablet] 1 - 2 tab PO Q4HP PRN #10 tab.rapdis Allergies/Adverse Reactions: lorazepam [From Ativan] Adverse Reaction (Verified 05/22/15 20:52) Review of Systems ROS unobtainable: Due to mental status Physical Exam Vital Signs: Temp Pulse Resp BP Pulse Ox 99.4 F 16 108/54 L 100 06/18/16 11:11 06/18/16 11:11 06/18/16 11:11 06/18/16 11:11 General appearance: PRESENT: mild distress, thin Head exam: PRESENT: atraumatic, normocephalic Eye exam: PRESENT: conjunctiva pink, EOMI, PERRLA. ABSENT: scleral icterus Neck exam: ABSENT: carotid bruit, JVD, lymphadenopathy, thyromegaly Respiratory exam: PRESENT: decreased breath sounds. ABSENT: rales, rhonchi, wheezes Pulses: PRESENT: normal dorsalis pedis pul GI/Abdominal exam: PRESENT: normal bowel sounds, soft. ABSENT: distended, guarding, mass, organolmegaly, rebound, tenderness Rectal exam: PRESENT: deferred Extremities exam: PRESENT: full ROM. ABSENT: calf tenderness, clubbing, pedal edema Neurological exam: PRESENT: other - Lethargic difficult to arouse Skin exam: PRESENT: dry, intact, warm. ABSENT: cyanosis, rash Results Laboratory Results: Laboratory WBC 32.1 10^3/uL (4.0-10.5) H* D 06/18/16 10:00 RBC 3.48 10^6/uL (4.35-5.55) L 06/18/16 10:00 Hgb 10.4 g/dL (13.5-17.0) L 06/18/16 10:00 Hct 31.6 % (37.9-51.0) L 06/18/16 10:00 MCV 91 fl (80-97) 06/18/16 10:00 MCH 29.8 pg (27.0-33.4) 06/18/16 10:00 MCHC 32.8 g/dL (32.0-36.0) 06/18/16 10:00 RDW 19.2 % (11.5-14.0) H 06/18/16 10:00 Plt Count 325 10^3/uL (150-450) 06/18/16 10:00 Total Counted 100 06/18/16 10:00 Seg Neutrophils % Not Reportable 06/18/16 10:00 Seg Neuts % (Manual) 88 % (42-78) H 06/18/16 10:00 Band Neutrophils % 5 % (3-5) 06/18/16 10:00 Lymphocytes % Not Reportable 06/18/16 10:00 Lymphocytes % (Manual) 1 % (13-45) L 06/18/16 10:00 Monocytes % Not Reportable 06/18/16 10:00 Monocytes % (Manual) 6 % (3-13) 06/18/16 10:00 Eosinophils % Not Reportable 06/18/16 10:00 Eosinophils % (Manual) 0 % (0-6) 06/18/16 10:00 Basophils % Not Reportable 06/18/16 10:00 Basophils % (Manual) 0 % (0-2) 06/18/16 10:00 Absolute Neutrophils Not Reportable 06/18/16 10:00 Abs Neuts (Manual) 29.9 10^3/uL (1.7-8.2) H 06/18/16 10:00 Absolute Lymphocytes Not Reportable 06/18/16 10:00 Abs Lymphs (Manual) 0.3 10^3/uL (0.5-4.7) L 06/18/16 10:00 Absolute Monocytes Not Reportable 06/18/16 10:00 Abs Monocytes (Manual) 1.9 10^3/uL (0.1-1.4) H 06/18/16 10:00 Absolute Eosinophils Not Reportable 06/18/16 10:00 Absolute Eos (Manual) 0.0 10^3/uL (0.0-0.6) 06/18/16 10:00 Absolute Basophils Not Reportable 06/18/16 10:00 Abs Basophils (Manual) 0.0 10^3/uL (0.0-0.2) 06/18/16 10:00 Toxic Granulation 1+ 06/18/16 10:00 Toxic Vacuolation PRESENT 06/18/16 10:00 Platelet Comment ADEQUATE 06/18/16 10:00 Anisocytosis 1+ 06/18/16 10:00 Sodium 125.5 mmol/L (137-145) L 06/18/16 10:00 Potassium 3.2 mmol/L (3.6-5.0) L 06/18/16 10:00 Chloride 74 mmol/L (98-107) L 06/18/16 10:00 Carbon Dioxide 43 mmol/L (22-30) H* 06/18/16 10:00 Anion Gap 9 (5-19) 06/18/16 10:00 BUN 35 mg/dL (7-20) H 06/18/16 10:00 Creatinine 1.34 mg/dL (0.52-1.25) H 06/18/16 10:00 Est GFR ( Amer) > 60 (>60) 06/18/16 10:00 Est GFR (Non-Af Amer) 52 (>60) L 06/18/16 10:00 Glucose 96 mg/dL (75-110) 06/18/16 10:00 Lactic Acid 1.6 mmol/L (0.7-2.1) 06/18/16 10:00 Calcium 8.0 mg/dL (8.4-10.2) L 06/18/16 10:00 Magnesium 1.5 mg/dL (1.6-2.3) L 06/18/16 10:00 Total Bilirubin 2.6 mg/dL (0.2-1.3) H 06/18/16 10:00 Direct Bilirubin 1.3 mg/dL (0.0-0.4) H 06/18/16 10:00 Indirect Bilirubin Not Reportable 06/18/16 10:00 Neonat Total Bilirubin Not Reportable 06/18/16 10:00 AST 24 U/L (17-59) 06/18/16 10:00 ALT 34 U/L (21-72) 06/18/16 10:00 Alkaline Phosphatase 162 U/L (38-126) H 06/18/16 10:00 NT-Pro-B Natriuret Pep 02549 pg/mL (5-900) H 06/18/16 10:00 Total Protein 5.8 g/dL (6.3-8.2) L 06/18/16 10:00 Albumin 2.7 g/dL (3.5-5.0) L 06/18/16 10:00 Lipase < 10.0 U/L (23-300) L 06/18/16 10:00 Random Cortisol 36.00 ug/dL (None Established) 06/18/16 10:00 Urine Color RADHA 06/18/16 10:36 Urine Appearance CLOUDY 06/18/16 10:36 Urine pH 5.0 (5.0-9.0) 06/18/16 10:36 Ur Specific Huson 1.020 06/18/16 10:36 Urine Protein 100 mg/dL (NEGATIVE) H 06/18/16 10:36 Urine Glucose (UA) NEGATIVE mg/dL (NEGATIVE) 06/18/16 10:36 Urine Ketones NEGATIVE mg/dL (NEGATIVE) 06/18/16 10:36 Urine Blood NEGATIVE (NEGATIVE) 06/18/16 10:36 Urine Nitrite NEGATIVE (NEGATIVE) 06/18/16 10:36 Urine Bilirubin SMALL (NEGATIVE) H 06/18/16 10:36 Urine Urobilinogen 4.0 mg/dL (<2.0) H 06/18/16 10:36 Ur Leukocyte Esterase MODERATE (NEGATIVE) H 06/18/16 10:36 Urine WBC (Auto) >182 /HPF 06/18/16 10:36 Urine RBC (Auto) 45 /HPF 06/18/16 10:36 U Hyaline Cast (Auto) 50 /LPF 06/18/16 10:36 Urine Bacteria (Auto) 3+ /HPF 06/18/16 10:36 Urine WBC Clumps MANY /HPF 06/18/16 10:36 Squamous Epi Cells Auto 2 /HPF 06/18/16 10:36 U Non-Squamous Epis Auto 1 /HPF 06/18/16 10:36 Urine Mucus (Auto) OCC /LPF 06/18/16 10:36 Urine Yeast (Budding) PRESENT /HPF 06/18/16 10:36 Urine Ascorbic Acid NEGATIVE (NEGATIVE) 06/18/16 10:36 Impressions: Chest X-Ray 06/18/16 10:08 IMPRESSION: 1. No pneumothorax post right IJ central venous catheter placement. Tip is in appropriate location. 2. There is been interval increase in the diffuse airspace opacities throughout the lung comparison the prior study. Pulmonary vascular congestion and interstitial edema also noted and increased. Assessment & Plan - Diagnosis (1) Dysphagia Qualifiers: Dysphagia type: unspecified Qualified Code(s): R13.10 - Dysphagia, unspecified Is this a current diagnosis for this admission?: YesPlan: Patient was diagnosed of dysphagia during his past admission He was discharged on mechanical soft diet Patient likely has aspiration pneumonia; his chest x-ray shows bilateral infiltrates We will a continue the treatment with Zosyn and vancomycin initiated in the ED; patient was kept nothing by mouth Swallow study should be repeated after patient recovers (2) Pneumonia Qualifiers: Pneumonia type: due to unspecified organism Laterality: unspecified laterality Lung location: unspecified part of lung Qualified Code(s): J18.9 - Pneumonia, unspecified organism Is this a current diagnosis for this admission?: YesPlan: Treat with broad-spectrum antibiotics as hospital-acquired pneumonia (3) Acute and chronic respiratory failure with hypoxia Is this a current diagnosis for this admission?: YesPlan: Continue BiPAP support (4) History of implantable cardioverter-defibrillator (ICD) placement Is this a current diagnosis for this admission?: Yes (5) Systolic and diastolic CHF, chronic Is this a current diagnosis for this admission?: YesPlan: Last echocardiogram April 2015 showed severe hypokinesia an EF of 25% (6) Chronic indwelling Blake catheter Is this a current diagnosis for this admission?: YesPlan: Since his discharge from [place] 2 months ago (7) UTI (urinary tract infection) Qualifiers: Indwelling urinary catheter type: unspecified Encounter type: subsequent encounter Is this a current diagnosis for this admission?: YesPlan: Prior urine culture showed E faecalis Treat with vancomycin (8) Adrenal insufficiency Is this a current diagnosis for this admission?: YesPlan: We'll treat his high dose steroids (9) Do not intubate but use all other measures Is this a current diagnosis for this admission?: Yes - Time Critical Time spent with patient: 35 or more minutes
[2016-06-18] MEDS ORDERED: HYDROCORTISONE SOD SUCCINATE INJ/PF 100 MG/2 ML SDV IV ONE (14:00)
[2016-06-18] MEDS ORDERED: VANCOMYCIN HCL 1,250 MG in DEXTROSE 5%-WATER 250 ML IV ONE (15:00)
[2016-06-18 15:44] LABS: ARTERIAL BLOOD BASE EXCESS 7.9 mmol/L; ARTERIAL BLOOD O2 SATURATION 98.8 % (94-98)
[2016-06-18] MEDS ORDERED: DEXTROSE 5%-WATER 250 ML with NOREPINEPHRINE BITARTRATE 4 MG IV PRN ×2 (15:54)
[2016-06-18] MEDS: NORMAL SALINE 1000 ML 1,000 ML IV PRN (15:56)
[2016-06-18] MEDS: PIPERACILLIN SODIUM/TAZOBACTAM 3.375 GM in NORMAL SALINE 100 ML IV SCH ×2 (17:52→23:43)
[2016-06-18] MEDS: POTASSIUM CHLORIDE 20 MEQ/50 ML RTU IV SCH ×2 (20:14→21:08)
[2016-06-18] MEDS: MAGNESIUM SULFATE 1 GM/D5W 100 ML IV SCH ×2 (20:24→21:30)
[2016-06-18] MEDS: HYDROCORTISONE SOD SUCCINATE INJ/PF 100 MG/2 ML SDV IV SCH (21:53)
[2016-06-18] MEDS: PANTOPRAZOLE SODIUM 40 MG VIAL IV SCH (21:53)
[2016-06-19] MEDS ORDERED: MAGNESIUM SULFATE/D5W 1 GM/100 ML RTUPB IV ONE (01:53)
[2016-06-19] MEDS: NORMAL SALINE 1000 ML 1,000 ML IV PRN ×2 (02:57→10:37)
[2016-06-19] MEDS: VANCOMYCIN HCL 750 MG in DEXTROSE 5%-WATER 250 ML IV SCH ×2 (03:22→16:22)
[2016-06-19 04:20] LABS: HEMATOCRIT 27.6 % (37.9-51.0); HEMOGLOBIN 9.3 g/dL (13.5-17.0); HGB HCT DIFFERENCE 0.3; MEAN CORPUSCULAR HEMOGLOBIN 30.6 pg (27.0-33.4); MEAN CORPUSCULAR HGB CONC 33.7 g/dL (32.0-36.0); MEAN CORPUSCULAR VOLUME 91 fl (80-97); RED BLOOD COUNT 3.03 10^6/uL (4.35-5.55); RED CELL DISTRIBUTION WIDTH 19.4 % (11.5-14.0); WHITE BLOOD COUNT 12.9 10^3/uL (4.0-10.5)
[2016-06-19 04:32] LABS: ALANINE AMINOTRANSFERASE 33 U/L (21-72); ALBUMIN 2.3 g/dL (3.5-5.0); ALKALINE PHOSPHATASE 130 U/L (38-126); ANION GAP 7 (5-19); ASPARTATE AMINO TRANSFERASE 16 U/L (17-59); BILIRUBIN,DIRECT 1.4 mg/dL (0.0-0.4); BILIRUBIN,TOTAL 2.1 mg/dL (0.2-1.3); BLOOD UREA NITROGEN 25 mg/dL (7-20); CALCIUM 7.1 mg/dL (8.4-10.2); CARBON DIOXIDE 38 mmol/L (22-30); CHLORIDE 85 mmol/L (98-107); CREATININE RESULT 0.64 mg/dL (0.52-1.25); GLUCOSE 130 mg/dL (75-110); POTASSIUM 3.1 mmol/L (3.6-5.0); SODIUM 130.2 mmol/L (137-145); TOTAL PROTEIN 5.1 g/dL (6.3-8.2)
[2016-06-19 04:44] LABS: TROPONIN I 0.046 ng/mL
[2016-06-19] MEDS: PIPERACILLIN SODIUM/TAZOBACTAM 3.375 GM in NORMAL SALINE 100 ML IV SCH ×4 (05:03→23:41)
[2016-06-19] MEDS: HYDROCORTISONE SOD SUCCINATE INJ/PF 100 MG/2 ML SDV IV SCH ×3 (05:10→21:04)
[2016-06-19] MEDS: POTASSIUM CHLORIDE 20 MEQ/50 ML RTU IV SCH ×2 (06:06→07:47)
[2016-06-19 06:47] LABS: ARTERIAL BLOOD BASE EXCESS 12.1 mmol/L; ARTERIAL BLOOD O2 SATURATION 95.5 % (94-98)
[2016-06-19] MEDS: ENOXAPARIN SODIUM INJ 40 MG/0.4 ML DISP.SYRIN SUBCUT SCH (08:36)
--- NOTE | 2016-06-19 09:36 | EKG REPORT ---
SEVERITY:- ABNORMAL ECG - VENTRICULAR-PACED COMPLEXES : Confirmed by: Anabella Mueller 19-Jun-2016 09:35:44
--- NOTE | 2016-06-19 09:36 | EKG REPORT ---
SEVERITY:- ABNORMAL ECG - VENTRICULAR-PACED RHYTHM : Confirmed by: Anabella Mueller 19-Jun-2016 09:35:29
[2016-06-19] MEDS: PANTOPRAZOLE SODIUM 40 MG VIAL IV SCH ×2 (10:37→21:04)
[2016-06-19] MEDS ORDERED: NORMAL SALINE 1000 ML 1,000 ML IV PRN (10:44)
--- NOTE | 2016-06-19 10:54 | PDOC PROGRESS REPORT ---
Subjective Progress Note for:: 06/19/16 Subjective:: Patient is feeling well he is off pressors He is hungry and does not wish to have any dysphagia diet He fully understands the risk of aspiration and states "I would rather than eat pure food We convinced him to have a mechanical soft with thin liquids and he agrees Physical Exam Vital Signs: Temp Pulse Resp BP Pulse Ox 97.3 F 71 18 98/63 L 100 06/19/16 08:00 06/19/16 08:00 06/19/16 08:00 06/19/16 08:00 06/19/16 08:00 Intake & Output 06/18/16 06/19/16 06/20/16 00:59 00:59 00:59 Intake Total 531 2085 Output Total 400 600 Balance 131 1485 Weight 83.7 kg 77.7 kg General appearance: PRESENT: no acute distress, thin Head exam: PRESENT: atraumatic, normocephalic Eye exam: PRESENT: conjunctiva pink, EOMI, PERRLA. ABSENT: scleral icterus Ear exam: PRESENT: normal external ear exam Mouth exam: PRESENT: moist, tongue midline Neck exam: ABSENT: carotid bruit, JVD, lymphadenopathy, thyromegaly Respiratory exam: PRESENT: clear to auscultation nic. ABSENT: rales, rhonchi, wheezes Cardiovascular exam: PRESENT: RRR. ABSENT: diastolic murmur, rubs, systolic murmur Pulses: PRESENT: normal dorsalis pedis pul Vascular exam: PRESENT: normal capillary refill GI/Abdominal exam: PRESENT: normal bowel sounds, soft. ABSENT: distended, guarding, mass, organolmegaly, rebound, tenderness Rectal exam: PRESENT: deferred Extremities exam: PRESENT: full ROM. ABSENT: calf tenderness, clubbing, pedal edema Neurological exam: PRESENT: alert, awake, oriented to person, oriented to place , oriented to time, oriented to situation, CN II-XII grossly intact. ABSENT: motor sensory deficit Psychiatric exam: PRESENT: appropriate affect, normal mood. ABSENT: homicidal ideation, suicidal ideation Skin exam: PRESENT: dry, intact, warm. ABSENT: cyanosis, rash Results Laboratory Results: 06/19/16 04:10 06/19/16 04:10 06/18/16 06/19/16 06/19/16 15:23 04:10 04:10 WBC 12.9 H RBC 3.03 L Hgb 9.3 L Hct 27.6 L MCV 91 MCH 30.6 MCHC 33.7 RDW 19.4 H Plt Count 249 Carbonic Acid 1.35 HCO3/H2CO3 Ratio 24:1 ABG pH 7.48 H ABG pCO2 45.0 ABG pO2 135.6 H ABG HCO3 32.4 H ABG O2 Saturation 98.8 H ABG Base Excess 7.9 FiO2 10L Sodium 130.2 L Potassium 3.1 L Chloride 85 L Carbon Dioxide 38 H Anion Gap 7 BUN 25 H Creatinine 0.64 Est GFR ( Amer) > 60 Est GFR (Non-Af Amer) > 60 Glucose 130 H Calcium 7.1 L Total Bilirubin 2.1 H AST 16 L ALT 33 Alkaline Phosphatase 130 H Total Protein 5.1 L Albumin 2.3 L TSH 06/19/16 06/19/16 04:10 06:35 WBC RBC Hgb Hct MCV MCH MCHC RDW Plt Count Carbonic Acid 1.41 H HCO3/H2CO3 Ratio 25:1 ABG pH 7.51 H ABG pCO2 47.0 H ABG pO2 71.7 L ABG HCO3 36.5 H ABG O2 Saturation 95.5 ABG Base Excess 12.1 FiO2 4L Sodium Potassium Chloride Carbon Dioxide Anion Gap BUN Creatinine Est GFR ( Amer) Est GFR (Non-Af Amer) Glucose Calcium Total Bilirubin AST ALT Alkaline Phosphatase Total Protein Albumin TSH 0.20 L 06/18/16 06/18/16 06/19/16 16:10 22:15 04:10 Troponin I 0.063 0.051 0.046 NT-Pro-B Natriuret Pep 09540 H Impressions: Chest X-Ray 06/18/16 10:08 IMPRESSION: 1. No pneumothorax post right IJ central venous catheter placement. Tip is in appropriate location. 2. There is been interval increase in the diffuse airspace opacities throughout the lung comparison the prior study. Pulmonary vascular congestion and interstitial edema also noted and increased. Assessment & Plan - Diagnosis (1) Dysphagia Qualifiers: Dysphagia type: unspecified Qualified Code(s): R13.10 - Dysphagia, unspecified Is this a current diagnosis for this admission?: YesPlan: We will a initiate feedings with mechanical soft thin liquids There is no point in getting speech therapy as the patient will not comply with any of their recommendations (2) Pneumonia Qualifiers: Pneumonia type: due to unspecified organism Laterality: unspecified laterality Lung location: unspecified part of lung Qualified Code(s): J18.9 - Pneumonia, unspecified organism Is this a current diagnosis for this admission?: YesPlan: Likely aspiration pneumonia improving (3) Acute and chronic respiratory failure with hypoxia Is this a current diagnosis for this admission?: YesPlan: Improved (4) History of implantable cardioverter-defibrillator (ICD) placement Is this a current diagnosis for this admission?: Yes (5) Systolic and diastolic CHF, chronic Is this a current diagnosis for this admission?: YesPlan: Patient has no signs of fluid overload although the BNP is markedly elevated more than 10,000 We will continue careful hydration (6) Chronic indwelling Blake catheter Is this a current diagnosis for this admission?: YesPlan: big issue as we do believe that patient has a recurrent UTI We will initiate Flomax by mouth and remove the Blake catheter on Wednesday give the patient chance to fully do void on his own (7) UTI (urinary tract infection) Qualifiers: Indwelling urinary catheter type: unspecified Encounter type: subsequent encounter Is this a current diagnosis for this admission?: YesPlan: Past history of he faecalis UTI Continue vancomycin (8) Adrenal insufficiency Is this a current diagnosis for this admission?: YesPlan: Continue stress steroids (9) Do not intubate but use all other measures Is this a current diagnosis for this admission?: Yes - Time Time Spent with patient: We will transfer the patient to medical unit Time Spent with patient: 25-34 minutes - Inpatient Certification Based on my medical assessment, after consideration of the patient's comorbidities, presenting symptoms, or acuity I expect that the services needed warrant INPATIENT care.: Yes I certify that my determination is in accordance with my understanding of Medicare's requirements for reasonable and necessary INPATIENT services [42 CFR 412.3e].: Yes Medical Necessity: Need Close Monitoring Due to Risk of Patient Decompensation, Need For IV Fluids
[2016-06-19 13:55] LABS: ANION GAP 9 (5-19); BLOOD UREA NITROGEN 24 mg/dL (7-20); CALCIUM 7.6 mg/dL (8.4-10.2); CARBON DIOXIDE 35 mmol/L (22-30); CHLORIDE 88 mmol/L (98-107); CREATININE RESULT 0.62 mg/dL (0.52-1.25); GLUCOSE 119 mg/dL (75-110); POTASSIUM 3.7 mmol/L (3.6-5.0); SODIUM 131.7 mmol/L (137-145)
[2016-06-19] MEDS: ACETAMINOPHEN 325 MG TABLET PO PRN ×2 (18:17→23:42)
[2016-06-19] MEDS: TAMSULOSIN HCL 0.4 MG CAP.SR.24H PO SCH (18:17)
[2016-06-19 19:51] LABS: PATH REVIEW PATHOLOGIST REVIEWED
[2016-06-20] MEDS: KETOROLAC TROMETHAMINE INJ/PF 30 MG/1 ML SDV IV PRN ×2 (01:07→21:39)
[2016-06-20] MEDS: IPRATROPIUM/ALBUTEROL 0.5-2.5 MG/3 ML AMPUL NEB PRN ×2 (02:10→13:59)
[2016-06-20] MEDS ORDERED: VANCOMYCIN HCL INJ 1000 MG VIAL ONE (04:27)
[2016-06-20 04:34] LABS: ANION GAP 11 (5-19); BLOOD UREA NITROGEN 28 mg/dL (7-20); CALCIUM 7.5 mg/dL (8.4-10.2); CARBON DIOXIDE 31 mmol/L (22-30); CHLORIDE 86 mmol/L (98-107); CREATININE RESULT 0.79 mg/dL (0.52-1.25); GLUCOSE 134 mg/dL (75-110); POTASSIUM 3.8 mmol/L (3.6-5.0); SODIUM 128.3 mmol/L (137-145)
[2016-06-20] MEDS: VANCOMYCIN HCL 750 MG in DEXTROSE 5%-WATER 250 ML IV SCH (04:49)
[2016-06-20] MEDS: HYDROCORTISONE SOD SUCCINATE INJ/PF 100 MG/2 ML SDV IV SCH ×3 (05:02→21:36)
[2016-06-20] MEDS: PIPERACILLIN SODIUM/TAZOBACTAM 3.375 GM in NORMAL SALINE 100 ML IV SCH ×4 (06:38→23:05)
[2016-06-20] MEDS: ENOXAPARIN SODIUM INJ 40 MG/0.4 ML DISP.SYRIN SUBCUT SCH (08:22)
[2016-06-20] MEDS: PANTOPRAZOLE SODIUM 40 MG VIAL IV SCH ×2 (10:14→21:35)
[2016-06-20] MEDS ORDERED: GABAPENTIN 300 MG CAPSULE PO PRN (10:34)
[2016-06-20] MEDS ORDERED: FUROSEMIDE INJ/PF 20 MG/2 ML SDV IV ONE (11:00)
[2016-06-20] MEDS ORDERED: LISINOPRIL 5 MG TABLET PO ONE (11:30)
[2016-06-20] MEDS ORDERED: MIDODRINE HCL 5 MG TABLET PO ONE (12:00)
[2016-06-20] MEDS ORDERED: FLUCONAZOLE 200 MG/NS RTU 100 ML IV SCH (12:00)
[2016-06-20] MEDS ORDERED: (PENDING PHARMACY ID) (Midodrine Hcl [Midodrine Hcl] 10 MG) PO SCH (14:00)
[2016-06-20] MEDS ORDERED: MIDODRINE HCL 5 MG TABLET PO SCH (14:00)
--- NOTE | 2016-06-20 14:15 | PDOC PROGRESS REPORT ---
Subjective Progress Note for:: 06/20/16 Subjective:: Patient states he feels a lot better SOB is improved no chest pains BP is running low Physical Exam Vital Signs: Temp Pulse Resp BP Pulse Ox 97.3 F 70 18 97/71 L 97 06/20/16 11:13 06/20/16 14:01 06/20/16 14:01 06/20/16 11:13 06/20/16 14:01 Intake & Output 06/19/16 06/20/16 06/21/16 00:59 00:59 00:59 Intake Total 531 3275 1580 Output Total 400 1175 250 Balance 131 2100 1330 Weight 83.7 kg 77.7 kg 78.4 kg General appearance: PRESENT: no acute distress, thin Head exam: PRESENT: atraumatic, normocephalic Eye exam: PRESENT: conjunctiva pink, EOMI, PERRLA. ABSENT: scleral icterus Neck exam: ABSENT: carotid bruit, JVD, lymphadenopathy, thyromegaly Respiratory exam: PRESENT: rales - both bases. ABSENT: accessory muscle use Cardiovascular exam: PRESENT: RRR. ABSENT: diastolic murmur, rubs, systolic murmur Pulses: PRESENT: normal dorsalis pedis pul GI/Abdominal exam: PRESENT: normal bowel sounds, soft. ABSENT: distended, guarding, mass, organolmegaly, rebound, tenderness Neurological exam: PRESENT: alert, CN II-XII grossly intact Skin exam: PRESENT: dry, intact, warm. ABSENT: cyanosis, rash Results Laboratory Results: 06/19/16 04:10 06/20/16 03:55 06/20/16 03:55 Sodium 128.3 L Potassium 3.8 Chloride 86 L Carbon Dioxide 31 H Anion Gap 11 BUN 28 H Creatinine 0.79 Est GFR ( Amer) > 60 Est GFR (Non-Af Amer) > 60 Glucose 134 H Calcium 7.5 L Magnesium 2.0 06/18/16 06/18/16 06/19/16 16:10 22:15 04:10 Troponin I 0.063 0.051 0.046 NT-Pro-B Natriuret Pep 04502 H Impressions: Chest X-Ray 06/20/16 10:21 IMPRESSION: Slightly improved. Assessment & Plan - Diagnosis (1) Dysphagia Qualifiers: Dysphagia type: unspecified Qualified Code(s): R13.10 - Dysphagia, unspecified Is this a current diagnosis for this admission?: Yes (2) Pneumonia Qualifiers: Pneumonia type: due to unspecified organism Laterality: unspecified laterality Lung location: unspecified part of lung Qualified Code(s): J18.9 - Pneumonia, unspecified organism Is this a current diagnosis for this admission?: Yes (3) Acute and chronic respiratory failure with hypoxia Is this a current diagnosis for this admission?: Yes (4) History of implantable cardioverter-defibrillator (ICD) placement Is this a current diagnosis for this admission?: Yes (5) Systolic and diastolic CHF, chronic Is this a current diagnosis for this admission?: YesPlan: repeat chest xray shows bilateral infiltrates edema versus pneumonia will resume lasix and continue antibiotics overall resp status of patient is improved patient has severe systolic dysfunction with EF 25% (6) Chronic indwelling Pena catheter Is this a current diagnosis for this admission?: YesPlan: flomax po attempt to remove pena today (7) UTI (urinary tract infection) Qualifiers: Indwelling urinary catheter type: unspecified Encounter type: subsequent encounter Is this a current diagnosis for this admission?: Yes (8) Adrenal insufficiency Is this a current diagnosis for this admission?: YesPlan: continue solucortef (9) Do not intubate but use all other measures Is this a current diagnosis for this admission?: Yes (10) Hypotension Qualifiers: Hypotension type: unspecified hypotension type Qualified Code(s): I95.9 - Hypotension, unspecified Is this a current diagnosis for this admission?: YesPlan: resume midodrine - Time Time Spent with patient: will likely d/c patient back to [facility] on Wednesday Time Spent with patient: 25-34 minutes
[2016-06-20] MEDS: EPLERENONE 25 MG TABLET PO SCH (17:43)
[2016-06-20] MEDS: MIDODRINE HCL 5 MG TABLET PO SCH (17:44)
[2016-06-20] MEDS: TAMSULOSIN HCL 0.4 MG CAP.SR.24H PO SCH (17:44)
[2016-06-20] MEDS: ACETAMINOPHEN 325 MG TABLET PO PRN (17:44)
[2016-06-20] MEDS: APIXABAN 5 MG TABLET PO SCH (17:45)
[2016-06-20] MEDS: BUDESONIDE/FORMOTEROL 80-4.5 MCG 60 PUFF/6.9 GM MDI IH SCH (21:36)
[2016-06-20] MEDS: FUROSEMIDE INJ/PF 20 MG/2 ML SDV IV SCH (21:36)
[2016-06-21] MEDS: IPRATROPIUM/ALBUTEROL 0.5-2.5 MG/3 ML AMPUL NEB PRN (04:24)
[2016-06-21] MEDS: HYDROCORTISONE SOD SUCCINATE INJ/PF 100 MG/2 ML SDV IV SCH (05:05)
[2016-06-21] MEDS: PIPERACILLIN SODIUM/TAZOBACTAM 3.375 GM in NORMAL SALINE 100 ML IV SCH (05:39)
[2016-06-21 06:36] LABS: HEMATOCRIT 28.3 % (37.9-51.0); HEMOGLOBIN 9.3 g/dL (13.5-17.0); HGB HCT DIFFERENCE -0.4; MEAN CORPUSCULAR HEMOGLOBIN 30.4 pg (27.0-33.4); MEAN CORPUSCULAR HGB CONC 32.9 g/dL (32.0-36.0); MEAN CORPUSCULAR VOLUME 93 fl (80-97); RED BLOOD COUNT 3.06 10^6/uL (4.35-5.55); RED CELL DISTRIBUTION WIDTH 19.3 % (11.5-14.0); WHITE BLOOD COUNT 10.6 10^3/uL (4.0-10.5)
[2016-06-21 06:55] LABS: ANION GAP 11 (5-19); BLOOD UREA NITROGEN 27 mg/dL (7-20); CALCIUM 7.8 mg/dL (8.4-10.2); CARBON DIOXIDE 30 mmol/L (22-30); CHLORIDE 86 mmol/L (98-107); CREATININE RESULT 0.93 mg/dL (0.52-1.25); GLUCOSE 145 mg/dL (75-110); POTASSIUM 3.5 mmol/L (3.6-5.0); SODIUM 127.4 mmol/L (137-145)
[2016-06-21 07:15] LABS: BASOPHILS % (MANUAL) 0 % (0-2); EOSINOPHILS % (MANUAL) 0 % (0-6); LYMPHOCYTES % (MANUAL) 4 % (13-45); TOTAL CELLS COUNTED 100
[2016-06-21 07:16] LABS: ANISOCYTOSIS 1+; OVALOCYTES SLIGHT; POIKILOCYTOSIS SLIGHT
[2016-06-21 07:55] LABS: THYROID STIMULATING HORMONE 0.82 uIU/mL (0.47-4.68)
[2016-06-21] MEDS ORDERED: (PENDING PHARMACY ID) (Lisinopril [Zestril] 2.5 MG) PO SCH (10:00)
[2016-06-21] MEDS ORDERED: LISINOPRIL 5 MG TABLET PO SCH (10:00)
[2016-06-21] MEDS: BUDESONIDE/FORMOTEROL 80-4.5 MCG 60 PUFF/6.9 GM MDI IH SCH ×2 (10:11→21:54)
[2016-06-21] MEDS: FUROSEMIDE INJ/PF 20 MG/2 ML SDV IV SCH ×2 (10:11→21:53)
[2016-06-21] MEDS: EPLERENONE 25 MG TABLET PO SCH (10:12)
[2016-06-21] MEDS: ASPIRIN 81 MG TABLET, ENT COATED PO SCH (10:12)
[2016-06-21] MEDS: MIDODRINE HCL 5 MG TABLET PO SCH ×3 (10:12→17:51)
[2016-06-21] MEDS: DIGOXIN 0.125 MG TABLET PO SCH (10:13)
[2016-06-21] MEDS: PANTOPRAZOLE SODIUM 40 MG VIAL IV SCH (10:13)
[2016-06-21] MEDS: APIXABAN 5 MG TABLET PO SCH ×2 (10:14→18:43)
[2016-06-21] MEDS: ACETAMINOPHEN 325 MG TABLET PO PRN ×2 (10:16→19:18)
--- NOTE | 2016-06-21 10:18 | PDOC PROGRESS REPORT ---
Subjective Progress Note for:: 06/21/16 Subjective:: Patient is doing well. He says that his breathing is fine. He is quite agitated through the night and does not sleep well No fever no chills We attempted yesterday to remove the Blake catheter which he could not void Patient will have to be discharged with Blake catheter and follow-up with urology as an outpatient Physical Exam Vital Signs: Temp Pulse Resp BP Pulse Ox 97.4 F 72 18 97/63 L 100 06/21/16 07:27 06/21/16 07:27 06/21/16 07:27 06/21/16 07:27 06/21/16 07:27 Intake & Output 06/20/16 06/21/16 06/22/16 00:59 00:59 00:59 Intake Total 3275 912650 280 Output Total 1175 900 200 Balance 2100 [id number] 80 Weight 77.7 kg 78.4 kg 80.7 kg General appearance: PRESENT: no acute distress, thin Head exam: PRESENT: atraumatic, normocephalic Eye exam: PRESENT: conjunctiva pink, EOMI, PERRLA. ABSENT: scleral icterus Neck exam: ABSENT: carotid bruit, JVD, lymphadenopathy, thyromegaly Respiratory exam: PRESENT: rales - At the bases, wheezes - Few expiratory wheezes persist. ABSENT: rhonchi Cardiovascular exam: PRESENT: RRR. ABSENT: diastolic murmur, rubs, systolic murmur Pulses: PRESENT: normal dorsalis pedis pul GI/Abdominal exam: PRESENT: normal bowel sounds, soft. ABSENT: distended, guarding, mass, organolmegaly, rebound, tenderness Extremities exam: PRESENT: full ROM. ABSENT: calf tenderness, clubbing, pedal edema Neurological exam: PRESENT: awake, CN II-XII grossly intact Results Laboratory Results: 06/21/16 05:10 06/21/16 05:10 06/21/16 06/21/16 06/21/16 05:10 05:10 05:10 WBC 10.6 H RBC 3.06 L Hgb 9.3 L Hct 28.3 L MCV 93 MCH 30.4 MCHC 32.9 RDW 19.3 H Plt Count 229 Seg Neutrophils % Not Reportable Lymphocytes % Not Reportable Monocytes % Not Reportable Eosinophils % Not Reportable Basophils % Not Reportable Absolute Neutrophils Not Reportable Absolute Lymphocytes Not Reportable Absolute Monocytes Not Reportable Absolute Eosinophils Not Reportable Absolute Basophils Not Reportable Sodium 127.4 L Potassium 3.5 L Chloride 86 L Carbon Dioxide 30 Anion Gap 11 BUN 27 H Creatinine 0.93 Est GFR ( Amer) > 60 Est GFR (Non-Af Amer) > 60 Glucose 145 H Calcium 7.8 L TSH 0.82 Free T4 1.42 06/18/16 06/18/16 06/19/16 16:10 22:15 04:10 Troponin I 0.063 0.051 0.046 NT-Pro-B Natriuret Pep 48134 H Impressions: Chest X-Ray 06/20/16 10:21 IMPRESSION: Slightly improved. Assessment & Plan - Diagnosis (1) Dysphagia Qualifiers: Dysphagia type: unspecified Qualified Code(s): R13.10 - Dysphagia, unspecified Is this a current diagnosis for this admission?: Yes (2) Pneumonia Qualifiers: Pneumonia type: due to unspecified organism Laterality: unspecified laterality Lung location: unspecified part of lung Qualified Code(s): J18.9 - Pneumonia, unspecified organism Is this a current diagnosis for this admission?: YesPlan: Discontinue IV antibiotics Initiated Augmentin and Levaquin Noted that we do not have a sputum culture available (3) Acute and chronic respiratory failure with hypoxia Is this a current diagnosis for this admission?: Yes (4) History of implantable cardioverter-defibrillator (ICD) placement Is this a current diagnosis for this admission?: Yes (5) Systolic and diastolic CHF, chronic Is this a current diagnosis for this admission?: Yes (6) Chronic indwelling Blake catheter Is this a current diagnosis for this admission?: YesPlan: We'll refer to urology as an outpatient (7) UTI (urinary tract infection) Qualifiers: Indwelling urinary catheter type: unspecified Encounter type: subsequent encounter Is this a current diagnosis for this admission?: Yes (8) Adrenal insufficiency Is this a current diagnosis for this admission?: YesPlan: Her added Orlyf to present medications as patient's blood pressure is running on the low side Discontinue salt restriction (9) Do not intubate but use all other measures Is this a current diagnosis for this admission?: Yes (10) Hypotension Qualifiers: Hypotension type: unspecified hypotension type Qualified Code(s): I95.9 - Hypotension, unspecified Is this a current diagnosis for this admission?: Yes (11) Hyponatremia Is this a current diagnosis for this admission?: YesPlan: 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 Time Spent with patient: 25-34 minutes
[2016-06-21] MEDS ORDERED: POTASSIUM CHLORIDE 20 MEQ/15 ML UDCUP PO ONE (11:00)
[2016-06-21] MEDS: FLUCONAZOLE 100 MG TABLET PO SCH (11:27)
[2016-06-21] MEDS ORDERED: FLUDROCORTISONE ACETATE 0.1 MG TABLET PO ONE (11:30)
[2016-06-21] MEDS ORDERED: LEVOFLOXACIN 500 MG/D5W RTU 500 MG/100 ML RTUPB IV SCH (12:00)
[2016-06-21] MEDS: TAMSULOSIN HCL 0.4 MG CAP.SR.24H PO SCH (17:51)
[2016-06-21] MEDS: SPIRONOLACTONE 25 MG TABLET PO SCH (21:53)
[2016-06-21] MEDS: AMOXICILLIN TR/POT CLAVULANATE 500-125 MG TAB PO SCH (21:54)
[2016-06-21] MEDS: FLUDROCORTISONE ACETATE 0.1 MG TABLET PO SCH (21:54)
[2016-06-21] MEDS ORDERED: QUETIAPINE FUMARATE 25 MG TABLET PO SCH (22:00)
[2016-06-21] MEDS ORDERED: HYDROCORTISONE SOD SUCCINATE INJ/PF 100 MG/2 ML SDV IV SCH (22:00)
[2016-06-22 06:12] LABS: BLOOD UREA NITROGEN 27 mg/dL (7-20); CALCIUM 8.2 mg/dL (8.4-10.2); CARBON DIOXIDE 31 mmol/L (22-30); CREATININE RESULT 0.88 mg/dL (0.52-1.25); GLUCOSE 94 mg/dL (75-110); POTASSIUM 3.7 mmol/L (3.6-5.0)
[2016-06-22 06:14] LABS: ANION GAP 10 (5-19); CHLORIDE 90 mmol/L (98-107)
[2016-06-22] MEDS: MIDODRINE HCL 5 MG TABLET PO SCH ×3 (09:57→17:57)
[2016-06-22] MEDS: FLUDROCORTISONE ACETATE 0.1 MG TABLET PO SCH ×2 (09:58→22:48)
[2016-06-22] MEDS: SPIRONOLACTONE 25 MG TABLET PO SCH ×2 (09:59→22:48)
[2016-06-22] MEDS: ASPIRIN 81 MG TABLET, ENT COATED PO SCH (09:59)
[2016-06-22] MEDS: DIGOXIN 0.125 MG TABLET PO SCH (09:59)
[2016-06-22] MEDS: AMOXICILLIN TR/POT CLAVULANATE 500-125 MG TAB PO SCH ×2 (09:59→22:48)
[2016-06-22] MEDS: BUDESONIDE/FORMOTEROL 80-4.5 MCG 60 PUFF/6.9 GM MDI IH SCH ×2 (09:59→22:48)
[2016-06-22] MEDS: APIXABAN 5 MG TABLET PO SCH ×2 (10:00→17:56)
--- NOTE | 2016-06-22 10:07 | PDOC PROGRESS REPORT ---
Subjective Progress Note for:: 06/22/16 Subjective:: Patient is extremely lethargic today; he is arousable. He was prescribed Seroquel 25 mg last night for agitation Seroquel was discontinued today as he appears to be very sensitive to the medication Otherwise he is lying flat comfortable in no distress Patient is not stable enough today to return to [facility] Physical Exam Vital Signs: Temp Pulse Resp BP Pulse Ox 97.4 F 70 18 104/64 96 06/22/16 07:47 06/22/16 07:47 06/22/16 07:47 06/22/16 07:47 06/22/16 07:47 Intake & Output 06/21/16 06/22/16 06/23/16 00:59 00:59 00:59 Intake Total 117703 710 205 Output Total 900 450 340 Balance 980455 260 -135 Weight 78.4 kg 80.7 kg 81 kg General appearance: PRESENT: no acute distress Head exam: PRESENT: atraumatic, normocephalic Eye exam: PRESENT: conjunctiva pink, EOMI, PERRLA. ABSENT: scleral icterus Neck exam: ABSENT: carotid bruit, JVD, lymphadenopathy, thyromegaly Respiratory exam: PRESENT: decreased breath sounds. ABSENT: rales, rhonchi, wheezes Pulses: PRESENT: normal dorsalis pedis pul GI/Abdominal exam: PRESENT: normal bowel sounds, soft. ABSENT: ascites, distended, guarding, mass, organolmegaly, rebound, tenderness Extremities exam: PRESENT: full ROM. ABSENT: calf tenderness, clubbing, pedal edema Neurological exam: PRESENT: CN II-XII grossly intact Results Laboratory Results: 06/21/16 05:10 06/22/16 05:30 06/22/16 05:30 Sodium 131.0 L Potassium 3.7 Chloride 90 L Carbon Dioxide 31 H Anion Gap 10 BUN 27 H Creatinine 0.88 Est GFR ( Amer) > 60 Est GFR (Non-Af Amer) > 60 Glucose 94 Calcium 8.2 L 06/18/16 06/18/16 06/19/16 16:10 22:15 04:10 Troponin I 0.063 0.051 0.046 NT-Pro-B Natriuret Pep 52456 H Impressions: Chest X-Ray 06/20/16 10:21 IMPRESSION: Slightly improved. Assessment & Plan - Diagnosis (1) Dysphagia Qualifiers: Dysphagia type: unspecified Qualified Code(s): R13.10 - Dysphagia, unspecified Is this a current diagnosis for this admission?: YesPlan: Dysphagia with recurrent aspiration pneumonia Patient does not want to have a dysphagia diet He understands the risks of aspiration Patient was placed on the mechanical soft thin liquids diet He does not wish to return to [facility] on a pure diet (2) Pneumonia Qualifiers: Pneumonia type: due to unspecified organism Laterality: unspecified laterality Lung location: unspecified part of lung Qualified Code(s): J18.9 - Pneumonia, unspecified organism Is this a current diagnosis for this admission?: YesPlan: Recurrent aspiration pneumonia clearing Patient will be discharged on Augmentin and doxycycline (3) Acute and chronic respiratory failure with hypoxia Is this a current diagnosis for this admission?: Yes (4) History of implantable cardioverter-defibrillator (ICD) placement Is this a current diagnosis for this admission?: Yes (5) Systolic and diastolic CHF, chronic Is this a current diagnosis for this admission?: YesPlan: Acute on chronic systolic and diastolic CHF Patient has a known EF of 25% Continue present medications CHF appears well compensated at this time (6) Chronic indwelling Blake catheter Is this a current diagnosis for this admission?: YesPlan: An attempt to discontinue the Blake catheter was made Unfortunately patient had urinary retention was not able to void Patient will be discharged with indwelling Blake catheter patient should be referred to urology as an outpatient after discharge Patient is still on Flomax (7) UTI (urinary tract infection) Qualifiers: Indwelling urinary catheter type: unspecified Encounter type: subsequent encounter Is this a current diagnosis for this admission?: YesPlan: Urine culture grew yeast Patient's is currently on fluconazole (8) Adrenal insufficiency Is this a current diagnosis for this admission?: YesPlan: Patient was treated with high-dose hydrocortisone during his stay He is back on these home regimen We added Florinef to midodrine as patient's blood pressure is running at times below 100 systolic (9) Do not intubate but use all other measures Is this a current diagnosis for this admission?: Yes (10) Hypotension Qualifiers: Hypotension type: unspecified hypotension type Qualified Code(s): I95.9 - Hypotension, unspecified Is this a current diagnosis for this admission?: Yes (11) Hyponatremia Is this a current diagnosis for this admission?: YesPlan: Mild has improved - Time Time Spent with patient: Patient may be discharged to [facility] in 24-48 hours if his condition is stable Time Spent with patient: 25-34 minutes
[2016-06-22] MEDS ORDERED: TORSEMIDE 20 MG TABLET PO ONE (11:30)
[2016-06-22] MEDS ORDERED: HYDROCORTISONE 10 MG TABLET PO ONE (11:30)
[2016-06-22] MEDS: FLUCONAZOLE 100 MG TABLET PO SCH (11:49)
[2016-06-22] MEDS: TAMSULOSIN HCL 0.4 MG CAP.SR.24H PO SCH (17:57)
[2016-06-22] MEDS: DOXYCYCLINE HYCLATE 100 MG TABLET PO SCH (22:48)
[2016-06-22] MEDS: HYDROCORTISONE 10 MG TABLET PO SCH (22:48)
[2016-06-23] MEDS: IPRATROPIUM/ALBUTEROL 0.5-2.5 MG/3 ML AMPUL NEB PRN (00:10)
[2016-06-23] MEDS: ACETAMINOPHEN 325 MG TABLET PO PRN ×3 (05:13→20:13)
[2016-06-23 06:41] LABS: HEMATOCRIT 28.5 % (37.9-51.0); HEMOGLOBIN 9.4 g/dL (13.5-17.0); HGB HCT DIFFERENCE -0.3; MEAN CORPUSCULAR HEMOGLOBIN 30.3 pg (27.0-33.4); MEAN CORPUSCULAR HGB CONC 32.8 g/dL (32.0-36.0); MEAN CORPUSCULAR VOLUME 92 fl (80-97); RED BLOOD COUNT 3.09 10^6/uL (4.35-5.55); RED CELL DISTRIBUTION WIDTH 19.5 % (11.5-14.0); WHITE BLOOD COUNT 10.3 10^3/uL (4.0-10.5)
[2016-06-23 06:59] LABS: BAND NEUTROPHILS % (MANUAL) 2 % (3-5); BASOPHILS % (MANUAL) 0 % (0-2); EOSINOPHILS % (MANUAL) 0 % (0-6); LYMPHOCYTES % (MANUAL) 8 % (13-45); NUCLEATED RED BLOOD CELLS 2 /100 WBC (0); TOTAL CELLS COUNTED 100
[2016-06-23 07:03] LABS: ANISOCYTOSIS 2+; OVALOCYTES SLIGHT; POIKILOCYTOSIS SLIGHT; POLYCHROMASIA SLIGHT
[2016-06-23 07:05] LABS: ANION GAP 13 (5-19); BLOOD UREA NITROGEN 18 mg/dL (7-20); CALCIUM 8.2 mg/dL (8.4-10.2); CARBON DIOXIDE 32 mmol/L (22-30); CHLORIDE 88 mmol/L (98-107); CREATININE RESULT 0.67 mg/dL (0.52-1.25); GLUCOSE 132 mg/dL (75-110); SODIUM 133.3 mmol/L (137-145)
[2016-06-23 07:09] LABS: POTASSIUM 2.9 mmol/L (3.6-5.0)
[2016-06-23] MEDS: FLUDROCORTISONE ACETATE 0.1 MG TABLET PO SCH ×2 (09:05→23:54)
[2016-06-23] MEDS: POTASSI CL 20 MEQ/50 ML RIDER 50 ML IV SCH ×2 (09:05→10:43)
[2016-06-23] MEDS: TORSEMIDE 20 MG TABLET PO SCH (09:05)
[2016-06-23] MEDS: DOXYCYCLINE HYCLATE 100 MG TABLET PO SCH ×2 (09:06→23:53)
[2016-06-23] MEDS: HYDROCORTISONE 10 MG TABLET PO SCH (09:06)
[2016-06-23] MEDS: APIXABAN 5 MG TABLET PO SCH ×2 (09:06→17:18)
[2016-06-23] MEDS: DIGOXIN 0.125 MG TABLET PO SCH (09:06)
[2016-06-23] MEDS: MIDODRINE HCL 5 MG TABLET PO SCH ×3 (09:07→17:17)
[2016-06-23] MEDS: ASPIRIN 81 MG TABLET, ENT COATED PO SCH (09:07)
[2016-06-23] MEDS: SPIRONOLACTONE 25 MG TABLET PO SCH ×2 (09:07→23:54)
[2016-06-23] MEDS: BUDESONIDE/FORMOTEROL 80-4.5 MCG 60 PUFF/6.9 GM MDI IH SCH ×2 (09:07→23:55)
[2016-06-23] MEDS: POTASSIUM CHLORIDE 10 MEQ TABLET.SA PO SCH ×2 (09:07→23:54)
[2016-06-23] MEDS: AMOXICILLIN TR/POT CLAVULANATE 500-125 MG TAB PO SCH ×2 (09:07→23:53)
[2016-06-23] MEDS: FLUCONAZOLE 100 MG TABLET PO SCH (11:06)
[2016-06-23] MEDS: KETOROLAC TROMETHAMINE INJ/PF 30 MG/1 ML SDV IV PRN ×2 (13:44→20:13)
[2016-06-23] MEDS: TAMSULOSIN HCL 0.4 MG CAP.SR.24H PO SCH (17:18)
[2016-06-23 18:00] LABS: PATH REVIEW PATHOLOGIST REVIEWED
--- NOTE | 2016-06-23 19:08 | PDOC TRANSFER SUMMARY ---
General - Admit/Disc Date/PCP Admission Date/Primary Care Provider: 06/18/16 12:45 Discharge Date: 06/23/16 - Discharge Diagnosis (1) Pneumonia Is this a current diagnosis for this admission?: Yes (2) Acute and chronic respiratory failure with hypoxia Is this a current diagnosis for this admission?: Yes (3) Adrenal insufficiency Is this a current diagnosis for this admission?: Yes (4) Chronic indwelling Blake catheter Is this a current diagnosis for this admission?: Yes (5) Dysphagia Is this a current diagnosis for this admission?: Yes (6) UTI (urinary tract infection) Is this a current diagnosis for this admission?: Yes (7) History of implantable cardioverter-defibrillator (ICD) placement Is this a current diagnosis for this admission?: Yes (8) Systolic and diastolic CHF, chronic Is this a current diagnosis for this admission?: Yes (9) Do not intubate but use all other measures Is this a current diagnosis for this admission?: Yes - Additional Information Resuscitation Status: Full Code Discharge Diet: Cardiac - 1500 mL fluid restriction Discharge Activity: Activity As Tolerated Home Medications: Acidoph/L.bulg/Bif.b/S.thermop [Bacid Caplet] 1 tab PO [id number] 06/18/16 Apixaban [Eliquis 5 mg Tablet] 5 mg PO BID 06/18/16 Aspirin [Adult Low Dose Aspirin EC] 81 mg PO DAILY 06/18/16 Budesonide/Formoterol Fumarate [Symbicort HFA 80-4.5 mcg Inhaler 6.9 gm] 2 puff IH Q12 06/18/16 Digoxin [Lanoxin 0.125 mg Tablet] 0.125 mg PO DAILY 06/18/16 Docusate Sodium [Colace 100 mg Capsule] 100 mg PO BID 06/18/16 Eplerenone [Inspra 25 mg Tablet] 25 mg PO BID 06/18/16 Ferrous Sulfate [Iron] 325 mg PO DAILY 06/18/16 Gabapentin [Neurontin 300 mg Capsule] 300 mg PO Q8HP PRN 06/18/16 Lisinopril [Zestril] 2.5 mg PO DAILY 06/18/16 Midodrine HCl 10 mg PO TID 06/18/16 Ondansetron HCl [Zofran 4 mg Tablet] 4 mg PO Q6HP PRN 06/18/16 Quetiapine Fumarate [Seroquel 25 mg Tablet] 25 tab PO QHS 06/18/16 Torsemide [Demadex 20 mg Tablet] 20 mg PO BID 06/18/16 Acetaminophen [Tylenol 325 mg Tablet] 650 mg PO Q4HP PRN tablet 06/23/16 Amox Tr/Potassium Clavulanate [Augmentin "500" Tablet] 1 tab PO Q12 7 Days 04/10 Doxycycline Hyclate [Vibramycin 100 mg Tablet] 100 mg PO Q12 7 Days 06/23/16 Fluconazole [Diflucan 100 mg Tablet] 200 mg PO NOON 7 Days 06/23/16 Hydrocortisone [Cortef 10 mg Tablet] 10 mg PO DAILY tablet 06/23/16 Hydrocortisone [Cortef 10 mg Tablet] 20 mg PO QHS tablet 06/23/16 Ipratropium/Albuterol Sulfate [Duoneb 3 ml Ampul] 3 ml NEB RTQ8HP PRN vial.neb 06/23/16 Potassium Chloride [Klor-Con 10 Meq Tablet.sa] 20 meq PO Q12 tablet.sa Spironolactone [Aldactone 25 mg Tablet] 25 mg PO Q12 tablet 06/23/16 Tamsulosin HCl [Flomax 0.4 mg Cap.sr] 0.4 mg PO PCSUPPER cap.sr.24h 06/23/16 History of Present Illness Admission Date/PCP: 06/18/16 12:45 Patient complains of: Shortness breath History of Present Illness: TUTU MURRAY is a 75 year old male with an extensive past medical history including : end-stage congestive heart failure with an ejection fraction of 25% , S/P biventricular pacemaker, coronary artery disease, atrial fibrillation, COPD with persistent tobacco abuse, recurrent encephalopathy, recurrent aspiration pneumonia, and dementia with sundowning and agitation. [facility] ; was sent from [facility] for evaluation of shortness of breath and confusion In the ED he was found semi-responsive; hypotensive and in mild respiratory distress He was placed on BiPAP support ,treated with IV fluids pressors antibiotics and admitted to the intensive care unit with the diagnosis of sepsis pneumonia and UTI Hospital Course Hospital Course: Patient with a history of dysphagia presented with pneumonia likely aspiration related. Culture workup was negative. Patient has been transitioned to oral Augmentin and doxycycline and will need to complete these for another 7 days. Patient has been weaned off oxygen entirely during his course of hospitalization. Patient has chronic systolic CHF with EF of 25%. He is clinically compensated at time of discharge. Patient's lisinopril was initially held secondary to low blood pressure but is being restarted at 2.5 mg on discharge. He is also on diuretic regimen mentioned above. Physical Exam Vital Signs: Temp Pulse Resp BP Pulse Ox 97.6 F 68 16 99/65 L 100 06/23/16 16:08 06/23/16 16:08 06/23/16 16:08 06/23/16 16:08 06/23/16 16:08 Intake & Output 06/22/16 06/23/16 06/24/16 06:59 06:59 06:59 Intake Total 635 1140 100 Output Total 590 2400 Balance 45 -1260 100 Weight 81 kg 81 kg Results Laboratory Results: 06/23/16 05:20 06/23/16 05:20 06/23/16 06/23/16 05:20 05:20 WBC 10.3 RBC 3.09 L Hgb 9.4 L Hct 28.5 L MCV 92 MCH 30.3 MCHC 32.8 RDW 19.5 H Plt Count 241 Seg Neutrophils % Not Reportable Lymphocytes % Not Reportable Monocytes % Not Reportable Eosinophils % Not Reportable Basophils % Not Reportable Absolute Neutrophils Not Reportable Absolute Lymphocytes Not Reportable Absolute Monocytes Not Reportable Absolute Eosinophils Not Reportable Absolute Basophils Not Reportable Sodium 133.3 L Potassium 2.9 L* Chloride 88 L Carbon Dioxide 32 H Anion Gap 13 BUN 18 Creatinine 0.67 Est GFR ( Amer) > 60 Est GFR (Non-Af Amer) > 60 Glucose 132 H Calcium 8.2 L 06/18/16 06/18/16 06/19/16 16:10 22:15 04:10 Troponin I 0.063 0.051 0.046 NT-Pro-B Natriuret Pep 76802 H Impressions: Chest X-Ray 06/20/16 10:21 IMPRESSION: Slightly improved. Transfer Plan - Time Spent with Patient Time spent with patient: Greater than 30 Minutes Qualifiers PATEINT BEING DISCHARGED WITH ANY OF THE FOLLOWING DIAGNOSIS?: No
[2016-06-24] MEDS ORDERED: HYDROCORTISONE 10 MG TABLET ONE (01:08)
[2016-06-24] MEDS: HYDROCORTISONE 10 MG TABLET PO SCH ×2 (02:24→09:54)
[2016-06-24] MEDS: ACETAMINOPHEN 325 MG TABLET PO PRN (05:44)
[2016-06-24 05:58] LABS: HEMOGLOBIN 9.9 g/dL (13.5-17.0); HGB HCT DIFFERENCE -0.3; MEAN CORPUSCULAR HEMOGLOBIN 30.9 pg (27.0-33.4); MEAN CORPUSCULAR VOLUME 94 fl (80-97); RED BLOOD COUNT 3.21 10^6/uL (4.35-5.55); RED CELL DISTRIBUTION WIDTH 18.8 % (11.5-14.0); WHITE BLOOD COUNT 13.9 10^3/uL (4.0-10.5)
[2016-06-24 06:19] LABS: ANION GAP 14 (5-19); BLOOD UREA NITROGEN 24 mg/dL (7-20); CALCIUM 8.2 mg/dL (8.4-10.2); CARBON DIOXIDE 31 mmol/L (22-30); CHLORIDE 90 mmol/L (98-107); CREATININE RESULT 1.14 mg/dL (0.52-1.25); GLUCOSE 95 mg/dL (75-110); POTASSIUM 3.3 mmol/L (3.6-5.0); SODIUM 134.8 mmol/L (137-145)
[2016-06-24 06:26] LABS: BAND NEUTROPHILS % (MANUAL) 1 % (3-5); BASOPHILS % (MANUAL) 0 % (0-2); EOSINOPHILS % (MANUAL) 0 % (0-6); LYMPHOCYTES % (MANUAL) 3 % (13-45); NUCLEATED RED BLOOD CELLS 1 /100 WBC (0); TOTAL CELLS COUNTED 100
[2016-06-24 06:27] LABS: POLYCHROMASIA SLIGHT
[2016-06-24 06:28] LABS: ANISOCYTOSIS 2+; HYPOCHROMASIA SLIGHT; OVALOCYTES SLIGHT; POIKILOCYTOSIS SLIGHT
[2016-06-24 06:31] LABS: MAGNESIUM 1.1 mg/dL (1.6-2.3)
--- NOTE | 2016-06-24 07:48 | PDOC TRANSFER SUMMARY ---
General - Admit/Disc Date/PCP Admission Date/Primary Care Provider: 06/18/16 12:45 Discharge Date: 06/24/16 - Discharge Diagnosis (1) Pneumonia Is this a current diagnosis for this admission?: Yes (2) Acute and chronic respiratory failure with hypoxia Is this a current diagnosis for this admission?: Yes (3) Adrenal insufficiency Is this a current diagnosis for this admission?: Yes (4) Chronic indwelling Blake catheter Is this a current diagnosis for this admission?: Yes (5) Dysphagia Is this a current diagnosis for this admission?: Yes (6) UTI (urinary tract infection) Is this a current diagnosis for this admission?: Yes (7) History of implantable cardioverter-defibrillator (ICD) placement Is this a current diagnosis for this admission?: Yes (8) Systolic and diastolic CHF, chronic Is this a current diagnosis for this admission?: Yes (9) Do not intubate but use all other measures Is this a current diagnosis for this admission?: Yes (10) Hypokalemia Is this a current diagnosis for this admission?: Yes (11) Hypomagnesemia Is this a current diagnosis for this admission?: Yes - Additional Information Resuscitation Status: Full Code Discharge Diet: Cardiac - 1500 mL fluid restriction Discharge Activity: Activity As Tolerated Home Medications: Acidoph/L.bulg/Bif.b/S.thermop [Bacid Caplet] 1 tab PO [id number] 06/18/16 Apixaban [Eliquis 5 mg Tablet] 5 mg PO BID 06/18/16 Aspirin [Adult Low Dose Aspirin EC] 81 mg PO DAILY 06/18/16 Budesonide/Formoterol Fumarate [Symbicort HFA 80-4.5 mcg Inhaler 6.9 gm] 2 puff IH Q12 06/18/16 Digoxin [Lanoxin 0.125 mg Tablet] 0.125 mg PO DAILY 06/18/16 Docusate Sodium [Colace 100 mg Capsule] 100 mg PO BID 06/18/16 Eplerenone [Inspra 25 mg Tablet] 25 mg PO BID 06/18/16 Ferrous Sulfate [Iron] 325 mg PO DAILY 06/18/16 Gabapentin [Neurontin 300 mg Capsule] 300 mg PO Q8HP PRN 06/18/16 Lisinopril [Zestril] 2.5 mg PO DAILY 06/18/16 Midodrine HCl 10 mg PO TID 06/18/16 Ondansetron HCl [Zofran 4 mg Tablet] 4 mg PO Q6HP PRN 06/18/16 Quetiapine Fumarate [Seroquel 25 mg Tablet] 25 tab PO QHS 06/18/16 Torsemide [Demadex 20 mg Tablet] 20 mg PO BID 06/18/16 Acetaminophen [Tylenol 325 mg Tablet] 650 mg PO Q4HP PRN tablet 06/23/16 Amox Tr/Potassium Clavulanate [Augmentin "500" Tablet] 1 tab PO Q12 7 Days 04/10 Doxycycline Hyclate [Vibramycin 100 mg Tablet] 100 mg PO Q12 7 Days 06/23/16 Fluconazole [Diflucan 100 mg Tablet] 200 mg PO NOON 7 Days 06/23/16 Hydrocortisone [Cortef 10 mg Tablet] 10 mg PO DAILY tablet 06/23/16 Hydrocortisone [Cortef 10 mg Tablet] 20 mg PO QHS tablet 06/23/16 Ipratropium/Albuterol Sulfate [Duoneb 3 ml Ampul] 3 ml NEB RTQ8HP PRN vial.neb 06/23/16 Potassium Chloride [Klor-Con 10 Meq Tablet.sa] 20 meq PO Q12 tablet.sa Spironolactone [Aldactone 25 mg Tablet] 25 mg PO Q12 tablet 06/23/16 Tamsulosin HCl [Flomax 0.4 mg Cap.sr] 0.4 mg PO PCSUPPER cap.sr.24h 06/23/16 Magnesium Oxide [Mag-Ox 400 mg Tablet] 400 mg PO BID tablet 06/24/16 History of Present Illness Admission Date/PCP: 06/18/16 12:45 Patient complains of: Shortness of breath History of Present Illness: TUTU MURRAY is a 75 year old male with an extensive past medical history including : end-stage congestive heart failure with an ejection fraction of 25% , S/P biventricular pacemaker, coronary artery disease, atrial fibrillation, COPD with persistent tobacco abuse, recurrent encephalopathy, recurrent aspiration pneumonia, and dementia with sundowning and agitation. Just discharged from [facility] 6 days ago ; was sent from [facility] for evaluation of shortness of breath and confusion In the ED he was found semi-responsive; hypotensive and in mild respiratory distress He was placed on BiPAP support ,treated with IV fluids pressors antibiotics and admitted to the intensive care unit with the diagnosis of sepsis pneumonia and UTI Hospital Course Hospital Course: Patient with a history of dysphagia presented with pneumonia likely aspiration related. Culture workup was negative. Patient has been transitioned to oral Augmentin and doxycycline and will need to complete these for another 7 days. Patient has been weaned off oxygen entirely during his course of hospitalization. Patient has chronic systolic CHF with EF of 25%. He is clinically compensated at time of discharge. Patient's lisinopril was initially held secondary to low blood pressure but is being restarted at 2.5 mg on discharge. He is also on diuretic regimen mentioned above. Physical Exam Vital Signs: Temp Pulse Resp BP Pulse Ox 98.1 F 75 20 92/74 L 99 06/24/16 00:30 06/24/16 00:30 06/24/16 00:30 06/24/16 00:30 06/24/16 00:30 Intake & Output 06/23/16 06/24/16 06/25/16 06:59 06:59 06:59 Intake Total 1140 490 Output Total 2400 700 Balance -1260 -210 Weight 81 kg 81 kg Results Laboratory Results: 06/24/16 05:20 06/24/16 05:20 06/23/16 06/24/16 06/24/16 05:20 05:20 05:20 WBC 10.3 13.9 H RBC 3.09 L 3.21 L Hgb 9.4 L 9.9 L Hct 28.5 L 30.0 L MCV 92 94 MCH 30.3 30.9 MCHC 32.8 33.0 RDW 19.5 H 18.8 H Plt Count 241 240 Seg Neutrophils % Not Reportable Lymphocytes % Not Reportable Monocytes % Not Reportable Eosinophils % Not Reportable Basophils % Not Reportable Absolute Neutrophils Not Reportable Absolute Lymphocytes Not Reportable Absolute Monocytes Not Reportable Absolute Eosinophils Not Reportable Absolute Basophils Not Reportable Sodium 134.8 L Potassium 3.3 L Chloride 90 L Carbon Dioxide 31 H Anion Gap 14 BUN 24 H Creatinine 1.14 Est GFR ( Amer) > 60 Est GFR (Non-Af Amer) > 60 Glucose 95 Calcium 8.2 L Magnesium 1.1 L* 06/18/16 06/18/16 06/19/16 16:10 22:15 04:10 Troponin I 0.063 0.051 0.046 NT-Pro-B Natriuret Pep [id number] H Impressions: Chest X-Ray 06/20/16 10:21 IMPRESSION: Slightly improved. Transfer Plan - Time Spent with Patient Time spent with patient: Greater than 30 Minutes Qualifiers PATEINT BEING DISCHARGED WITH ANY OF THE FOLLOWING DIAGNOSIS?: No
[2016-06-24] MEDS: KETOROLAC TROMETHAMINE INJ/PF 30 MG/1 ML SDV IV PRN (08:00)
[2016-06-24] MEDS ORDERED: POTASSIUM CHLORIDE 10 MEQ TABLET.SA PO ONE (08:00)
[2016-06-24] MEDS ORDERED: MAGNESIUM SULFATE/D5W 100 ML IV ONE (08:00)
[2016-06-24 08:06] VITALS: BP 100/82
[2016-06-24] MEDS: MIDODRINE HCL 5 MG TABLET PO SCH (09:52)
[2016-06-24] MEDS: POTASSIUM CHLORIDE 10 MEQ TABLET.SA PO SCH (09:52)
[2016-06-24] MEDS: DIGOXIN 0.125 MG TABLET PO SCH (09:52)
[2016-06-24] MEDS: AMOXICILLIN TR/POT CLAVULANATE 500-125 MG TAB PO SCH (09:52)
[2016-06-24] MEDS: ASPIRIN 81 MG TABLET, ENT COATED PO SCH (09:52)
[2016-06-24] MEDS: APIXABAN 5 MG TABLET PO SCH (09:53)
[2016-06-24] MEDS: SPIRONOLACTONE 25 MG TABLET PO SCH (09:53)
[2016-06-24] MEDS: TORSEMIDE 20 MG TABLET PO SCH (09:53)
[2016-06-24] MEDS: BUDESONIDE/FORMOTEROL 80-4.5 MCG 60 PUFF/6.9 GM MDI IH SCH (09:54)
[2016-06-24] MEDS: FLUDROCORTISONE ACETATE 0.1 MG TABLET PO SCH (09:54)
[2016-06-24] MEDS: DOXYCYCLINE HYCLATE 100 MG TABLET PO SCH (09:54)
[2016-06-24] MEDS ORDERED: MAGNESIUM OXIDE 400 MG TABLET PO SCH (10:00)
[2016-06-24] MEDS: FLUCONAZOLE 100 MG TABLET PO SCH (12:01)
== END 2016-06-24 13:10 | DRG 698 ==
LOC: ER 09:56 → EH 12:38 → UNDOADMIN 12:38 → EH 12:45 → ICU 15:12 → 4S 06-19 12:35
PROVIDERS: ADMIT Emergency Medicine; ATTEND Emergency Medicine
PROC: 5A09457 Assistance with Respiratory Ventilation, 24-96 Consecutive Hours, Continuous Positive Airway Pressure (ICD-10-PCS; principal; 2016-06-18)
PROC: 02HV33Z Insertion of Infusion Device into Superior Vena Cava, Percutaneous Approach (ICD-10-PCS; 2016-06-18)
PROC: 3E0F73Z Introduction of Anti-inflammatory into Respiratory Tract, Via Natural or Artificial Opening (ICD-10-PCS; 2016-06-20)
DX: T83.511A Infection and inflammatory reaction due to indwelling urethral catheter, initial encounter (principal); A41.9 Sepsis, unspecified organism; J18.9 Pneumonia, unspecified organism; R65.21 Severe sepsis with septic shock; J96.21 Acute and chronic respiratory failure with hypoxia; I50.42 Chronic combined systolic (congestive) and diastolic (congestive) heart failure; E22.2 Syndrome of inappropriate secretion of antidiuretic hormone; N39.0 Urinary tract infection, site not specified; Y73.1 Therapeutic (nonsurgical) and rehabilitative gastroenterology and urology devices associated with adverse incidents; I11.0 Hypertensive heart disease with heart failure; E87.6 Hypokalemia; E83.42 Hypomagnesemia; I25.10 Atherosclerotic heart disease of native coronary artery without angina pectoris; I48.91 Unspecified atrial fibrillation; J44.9 Chronic obstructive pulmonary disease, unspecified; F03.90 Unspecified dementia, unspecified severity, without behavioral disturbance, psychotic disturbance, mood disturbance, and anxiety; E78.5 Hyperlipidemia, unspecified; E11.9 Type 2 diabetes mellitus without complications; K21.9 Gastro-esophageal reflux disease without esophagitis; M13.89 Other specified arthritis, multiple sites; R13.10 Dysphagia, unspecified; N40.0 Benign prostatic hyperplasia without lower urinary tract symptoms; Z66 Do not resuscitate; Z79.82 Long term (current) use of aspirin; Z79.899 Other long term (current) drug therapy; Z95.0 Presence of cardiac pacemaker; Z83.6 Family history of other diseases of the respiratory system; Z82.49 Family history of ischemic heart disease and other diseases of the circulatory system; Z88.8 Allergy status to other drugs, medicaments and biological substances; Z79.01 Long term (current) use of anticoagulants
CPT/HCPCS: 36415; 71010; 80048; 80053; 80162; 80202; 81001; 82533; 82803; 83036; 83605; 83690; 83735; 83880; 84439; 84443; 84484; 85025; 85027; 85610; 87040; 87086; 93005; 93010; 94660; 96361; 96365; 96375; 99291; C1751; G8978-GP; G8979-GP; J1450; J1650; J1720; J1885; J1940; J1956; J2543; J3370; J3475; J3480; J3490; J7030; J7060; J7620; S0164

== ENCOUNTER 2016-07-08 18:34 | Inpatient (IN) | payer MEDICARE ==
[2016-07-08] MEDS ORDERED: ACETAMINOPHEN 325 MG TABLET ONE (20:06)
[2016-07-08 20:54] LABS: ALANINE AMINOTRANSFERASE 19 U/L (21-72); ALBUMIN 3.4 g/dL (3.5-5.0); ALKALINE PHOSPHATASE 261 U/L (38-126); ANION GAP 16 (5-19); ASPARTATE AMINO TRANSFERASE 16 U/L (17-59); BILIRUBIN,DIRECT 0.9 mg/dL (0.0-0.4); BILIRUBIN,TOTAL 1.1 mg/dL (0.2-1.3); BLOOD UREA NITROGEN 61 mg/dL (7-20); CALCIUM 9.6 mg/dL (8.4-10.2); CARBON DIOXIDE 24 mmol/L (22-30); CHLORIDE 84 mmol/L (98-107); CREATININE RESULT 1.57 mg/dL (0.52-1.25); GLUCOSE 102 mg/dL (75-110); POTASSIUM 5.8 mmol/L (3.6-5.0); SODIUM 124.4 mmol/L (137-145); TOTAL PROTEIN 6.8 g/dL (6.3-8.2)
[2016-07-08 20:55] LABS: CREATINE KINASE < 20 U/L (55-170); DIGOXIN 1.04 ng/mL (0.8-2.0)
[2016-07-08 20:56] LABS: CREATINE KINASE MB 1.64 ng/mL (<4.55)
[2016-07-08 21:03] LABS: TROPONIN I 0.034 ng/mL
--- NOTE | 2016-07-08 22:01 | ER Document Report ---
ED Blood Pressure Problem - General Mode of Arrival: Medic Information source: Patient TRAVEL OUTSIDE OF THE [place] IN LAST 30 DAYS: No - HPI Patient complains to provider of: Low blood pressure Similar symptoms previously: Yes <VIJAY DURAN - Last Filed: 07/08/16 22:25> <MO ROSE - Last Filed: 07/09/16 01:06> - General Chief Complaint: Low Blood Pressure Stated Complaint: BLOOD PRESSURE ISSUES Notes: Patient is a 75-year-old male that presents to the emergency department via EMS from [facility] today with complaints of hypotension. According to EMS, they have been called several times to the patient's residence at [facility] by the family, he had refused transport several times stating he was fine. Family called again today because the patient was "fluttering his eyes" and the patient agreed to come in today. EMS states on arrival he found a blood pressure of 66/44. EMS administered approximately 250 mL normal saline prior to arrival and his blood pressure genesis to 100/60. Patient's first recorded blood pressure was 79/50, when entering room for exam the blood pressure was 85/60. Patient states he feels fine but feels "dehydrated". Patient denies any other symptoms. (VIJAY DURAN) - Related Data Allergies/Adverse Reactions: lorazepam [From Ativan] Adverse Reaction (Verified 05/22/15 20:52) Past Medical History - General Information source: [facility] Records - Social History Smoking Status: Former Smoker Frequency of alcohol use: None Drug Abuse: None Lives with: [facility] Family History: CAD, COPD - Past Medical History Cardiac Medical History: Reports: Hx Atrial Fibrillation, Hx Congestive Heart Failure, Hx Coronary Artery Disease, Hx Hypercholesterolemia, Hx Hypertension Pulmonary Medical History: Reports: Hx Bronchitis, Hx COPD, Hx Pneumonia Neurological Medical History: Reports: Hx Seizures - Last time 3 to 4 yrs ago Endocrine Medical History: Reports: Hx Diabetes Mellitus Type 2 Renal/ Medical History: Reports: Hx Benign Prostatic Hyperplasia Malignancy Medical History: GI Medical History: Reports: Hx Gastroesophageal Reflux Disease, Hx Ulcer - age 30 Musculoskeltal Medical History: Reports Hx Arthritis - All over Psychiatric Medical History: Reports: Hx Dementia Past Surgical History: Reports: Hx Adenoidectomy, Hx Cardiac Surgery - pacemaker defibulator, Hx Internal Defibrillator, Hx Orthopedic Surgery - right knee, left hip, Hx Pacemaker - See Pacemaker Checklist, Hx Tonsillectomy - Immunizations Hx Diphtheria, Pertussis, Tetanus Vaccination: No Hx Pneumococcal Vaccination: 11/22/14 <VIJAY DURAN - Last Filed: 07/08/16 22:25> Review of Systems <VIJAY DURAN - Last Filed: 07/08/16 22:25> <MO ROSE - Last Filed: 07/09/16 01:06> - Review of Systems Notes: Review of systems: Constitutional: Feeling Dehydrated EENT: No symptoms reported Cardiovascular: No symptoms reported Respiratory: No symptoms reported Gastrointestinal: No symptoms reported Genitourinary: No symptoms reported Musculoskeletal: No symptoms reported Skin: No symptoms reported Hematologic/Lymphatic: No symptoms reported Neurological/Psychological: No symptoms reported Yes All other systems reviewed and negative (VIJAY DURAN) Physical Exam <VIJAY DURAN - Last Filed: 07/08/16 22:25> <MO ROSE - Last Filed: 07/09/16 01:06> - Vital signs Vitals: Resp BP Pulse Ox 18 79/50 L 97 07/08/16 21:27 07/08/16 21:27 07/08/16 21:27 - Notes Notes: Physical Exam: General: Alert. States he is tired and worn out. HEENT: Normocephalic. Atraumatic. PERRL. Extraocular movements intact. Oropharynx clear. Very dry mucous membranes, requesting water. Neck: Supple. Non-tender. Respiratory: No respiratory distress. Clear and equal breath sounds bilaterally. Cardiovascular: Regular rate and rhythm. Abdominal: Normal Inspection. Non-tender. No distension. Normal Bowel Sounds. Back: Non-tender. No deformity or step off. Extremities: Moves all four extremities. Upper extremities: Normal inspection. Normal ROM. Lower extremities: Normal inspection. No edema. Normal ROM. Neurological: Normal cognition. AAOx4. Normal speech. Psychological: Normal affect. Normal Mood. Skin: Bandages over left elbow covering tear. (VIJAY DURAN) Course - Laboratory Result Diagrams: 07/08/16 19:35 07/08/16 19:35 <VIJAY DURAN - Last Filed: 07/08/16 22:25> - Laboratory Result Diagrams: 07/08/16 19:35 07/08/16 19:35 - Diagnostic Test Radiology reviewed: Image reviewed, Reports reviewed - Chest x-ray shows mildly enlarged heart with no other acute findings - EKG Interpretation by Me EKG shows normal: Sinus rhythm, [place], Intervals, QRS Complexes, ST-T Waves Rate: Normal - 70 Rhythm: Other - Ventricular paced rhythm When compared to previous EKG there are: No significant change - Consults Dr. Medina Time consulted: 00:20 Consulted provider: will come to ER <MO ROSE - Last Filed: 07/09/16 01:06> - Re-evaluation Re-evalutation: Patient's first recorded blood pressure was 79/50, when entering room for exam the blood pressure was 85/60. (VIJAY DURAN) - Vital Signs Vital signs: Temp Pulse Resp BP Pulse Ox 16 91/32 L 95 07/08/16 23:15 07/08/16 23:15 07/08/16 23:15 - Laboratory Laboratory results interpreted by me: 07/08/16 07/08/16 19:35 19:35 Sodium 124.4 L Potassium 5.8 H Chloride 84 L BUN 61 H Creatinine 1.57 H Est GFR ( Amer) 53 L Est GFR (Non-Af Amer) 44 L Direct Bilirubin 0.9 H AST 16 L ALT 19 L Alkaline Phosphatase 261 H Creatine Kinase < 20 L NT-Pro-B Natriuret Pep 4770 H Albumin 3.4 L Discharge <VIJAY DURAN - Last Filed: 07/08/16 22:25> - Discharge Admitting Provider: Hospitalist Unit Admitted: ICU <MO ROSE - Last Filed: 07/09/16 01:06> - Discharge Clinical Impression: Dehydration, Hyponatremia, Adrenal insufficiency Hypotension Qualifiers: Hypotension type: unspecified hypotension type Qualified Code(s): I95.9 - Hypotension, unspecified Scribe Attestation: 07/09/16 00:29 I personally performed the services described in the documentation, reviewed and edited the documentation which was dictated to the scribe in my presence, and it accurately records my words and actions. (MO ROSE) Scribe Documentation - Scribe Written by Scribe:: Nain Zhou, 07/08/16 [id number] acting as scribe for :: David <VIJAY DURAN - Last Filed: 07/08/16 22:25>
[2016-07-08] MEDS ORDERED: NORMAL SALINE 1000 ML 250 ML IV ONE (22:22)
[2016-07-08] MEDS ORDERED: HYDROCORTISONE SOD SUCCINATE INJ/PF 100 MG/2 ML SDV IV ONE (22:23)
[2016-07-09 01:24] LABS: ANION GAP 11 (5-19); BLOOD UREA NITROGEN 57 mg/dL (7-20); CALCIUM 9.2 mg/dL (8.4-10.2); CARBON DIOXIDE 22 mmol/L (22-30); CHLORIDE 90 mmol/L (98-107); CREATININE RESULT 1.31 mg/dL (0.52-1.25); GLUCOSE 111 mg/dL (75-110); POTASSIUM 5.6 mmol/L (3.6-5.0); SODIUM 123.3 mmol/L (137-145)
[2016-07-09] MEDS ORDERED: NORMAL SALINE 1000 ML 1,000 ML IV PRN (04:00)
[2016-07-09] MEDS ORDERED: IPRATROPIUM/ALBUTEROL 0.5-2.5 MG/3 ML AMPUL NEB PRN (04:06)
[2016-07-09] MEDS ORDERED: HYDROCORTISONE SOD SUCCINATE INJ/PF 100 MG/2 ML SDV IV SCH (05:00)
--- NOTE | 2016-07-09 05:33 | PDOC H&P ---
History of Present Illness Admission Date/PCP: 07/09/16 00:45 JANET HENAO Patient complains of: Low blood pressure History of Present Illness: TUTU MURRAY is a 75 year old male resident of [facility], who presents to the emergency room for evaluation of above complaint. Patient has been discussed with emergency room physician who evaluated the patient. Patient himself is oriented only to the fact that he is in the hospital. When asked the year, he stated 2011. When I asked why he was here, he stated "hell, I don't know." Denies pain. No Friends or family available at bedside. Old inpatient records are reviewed. According to my discussion with the emergency room physician, and review of his notes, EMS has been called several times recently to [facility] by the family, reportedly for problems with low blood pressure. Patient has underlying adrenal insufficiency, and takes Midodrine and oral steroids. The patient had refused transport each time, but, apparently when patient began "fluttering his eyes, " he agreed come to the emergency room. EMS reports that on their arrival at the [facility], blood pressure 66/44. After 250 mL's of normal saline, pressure was 100/60. 79/50 on arrival here. Responded well to IV fluids. Also has been given a dose of 100 mg of Solu- Cortef.. Patient denied any other symptoms. No further information available this point in time. Laboratory results are listed in [facility] and are reviewed. Hospitalized on our service 18 June through the third of this month with discharge diagnoses including pneumonia, acute and chronic respiratory failure with hypoxia, adrenal insufficiency, with DO NOT INTUBATE status noted. History and physical and discharge summary have been reviewed. X-ray summary results are listed below, with full report(s) reviewed. EKG reviewed. Compared to a tracing from the of last month. Social history/personal habits: Currently a resident of [facility]. No further information available this point in time. Allergies/adverse reactions are listed in [facility] and are reviewed. Home medications Home medications initially autopopulated into [facility] may not accurately reflect patient's true medications, dosages, and/or frequencies. arch support technician to reconcile medications. Unfortunately, patient not able to provide any information related to his medications/dosages/frequencies. REVIEW OF SYSTEMS: See history and present illness. No additional information available at this point in time. PHYSICAL EXAMINATION: Neither height nor weight are recorded on the chart. Temperature not recorded on the chart. Skin feels normothermic. 101/77. P 73, regular. Respirations 14, unlabored. 96% saturation, room air. Thin chronically ill appearing male who appears a bit older than his stated age. Somewhat sleepy, but overall cooperative. Somewhat anxious, although no doni agitation. Appears not to feel very well. Skin is warm and dry. No grossly obvious evidence of rash in areas of skin examined. No subcutaneous nodules palpated. Scattered ecchymoses, particularly on his forearm. Scattered areas of excoriation, forearms and legs ; nursing staff states patient has been scratching his skin intermittently. ENT: Hearing grossly normal to normal conversation. Tongue midline on protrusion pink and slightly tacky. Eyes: No scleral icterus. Pupils equal and reactive to light at 4 mm. [place] conjunctivae. No Raccoon eyes. Neck is supple and nontender to gentle active range of motion and palpation. Midline trachea. No palpable thyroid nodule mass enlargement or tenderness. Lymphatic: No palpable cervical or clavicular nodes. Neck and lymphatic exams limited by patient body habitus. Psychiatric: Difficulty to adequately evaluate due to his current status. See History and Present illness. Lungs: Auscultation reveals clear and equal breath sounds bilaterally. No use of accessory respiratory muscles. Cardiovascular: Heart regular rate and rhythm, without gallop murmur or rub. No carotid or abdominal aortic bruits. No ankle or pedal edema. Faintly palpable dorsalis pedis pulses. Abdomen:soft, slightly, distended nontender with positive bowel sounds. Unable to adequately evaluate abdomen for masses or organomegaly due to distention. Extremities: Hands and feet are warm and dry. No calf tenderness to compression. No grossly obvious visual evidence of calf swelling. Gentle manipulation of lower extremities fails to reveal any obvious evidence of injury or instability to knees hips or ankles, although restricted range of motion right knee, likely due to prior surgery, with scar noted. Neurologic: Moves upper extremities grossly normally. Patellar reflexes absent. Absent Babinski. Light touch cannot be adequately evaluated due to his current status. Dorsiflexion and plantarflexion of feet 5 / 5 and symmetric. Past Medical History Past Medical History: Patient himself not able to provide any information related to his past medical history. Information obtained through old records. Cardiac Medical History: Reports: Atrial Fibrillation, Congestive Heart Failure , Coronary Artery Disease, Hyperlipidema, Hypertension Denies: Myocardial Infarction, Peripheral Vascular Disease, Pulmonary Embolism, Heart Murmur Pulmonary Medical History: Reports: Bronchitis, Chronic Obstructive Pulmonary Disease (COPD), Pneumonia Denies: Asthma, Respiratory Failure, Sleep Apnea, Tuberculosis Neurological Medical History: Reports: Seizures - Last time 3 to 4 yrs ago Endocrine Medical History: Reports: Diabetes Mellitus Type 2 Renal/ Medical History: Malignancy Medical History: Denies: Lung Cancer GI Medical History: Reports: Gastroesophageal Reflux Disease Denies: Crohn's Disease, Hiatal Hernia Musculoskeltal Medical History: Reports: Arthritis - All over Denies: Fibromyalgia Psychiatric Medical History: Reports: Dementia Denies: Bipolar Disorder, Depression, Post Traumatic Stress Disorder Hematology: Reports: Anemia Infectious Medical History: Denies: HIV Past Surgical History Past Surgical History: Reports: Internal Defibrillator, Orthopedic Surgery - right knee, left hip, Pacemaker - See Pacemaker Checklist, Tonsillectomy Denies: Appendectomy, Cholecystectomy, Colostomy, Coronary Artery Bypass Graft, Gastric Bypass Surgery, Herniorrhaphy Social History Information Source: [facility] Lives with: [facility] Smoking Status: Former Smoker Frequency of Alcohol Use: None Hx Recreational Drug Use: No Drugs: None Hx Prescription Drug Abuse: No - Advance Directive Resuscitation Status: Do Not Intubate Surrogate healthcare decision maker:: Reportedly Family History Family History: CAD, COPD Parental Family History Reviewed: No - Patient unable to provide any information. Children Family History Reviewed: No - Patient unable to provide any information. Sibling(s) Family History Reviewed.: No - Patient unable to provide any information. Medication/Allergy Home Medications: Apixaban [Eliquis 5 mg Tablet] 5 mg PO BID 06/18/16 Aspirin [Adult Low Dose Aspirin EC] 81 mg PO DAILY 06/18/16 Budesonide/Formoterol Fumarate [Symbicort HFA 80-4.5 mcg Inhaler 6.9 gm] 2 puff IH Q12 06/18/16 Digoxin [Lanoxin 0.125 mg Tablet] 0.125 mg PO DAILY 06/18/16 Docusate Sodium [Colace 100 mg Capsule] 100 mg PO BID 06/18/16 Eplerenone [Inspra 25 mg Tablet] 25 mg PO BID 06/18/16 Ferrous Sulfate [Iron] 325 mg PO DAILY 06/18/16 Gabapentin [Neurontin 300 mg Capsule] 300 mg PO Q8 06/18/16 Lisinopril [Zestril] 2.5 mg PO DAILY 06/18/16 Midodrine HCl 10 mg PO TID 06/18/16 Ondansetron HCl [Zofran 4 mg Tablet] 4 mg PO Q6HP PRN 06/18/16 Quetiapine Fumarate [Seroquel 25 mg Tablet] 25 tab PO QHS 06/18/16 Torsemide [Demadex 20 mg Tablet] 20 mg PO BID 06/18/16 Hydrocortisone [Cortef 10 mg Tablet] 10 mg PO DAILY tablet 06/23/16 Hydrocortisone [Cortef 10 mg Tablet] 20 mg PO QHS tablet 06/23/16 Potassium Chloride [Klor-Con 10 Meq Tablet.sa] 20 meq PO Q12 tablet.sa Tamsulosin HCl [Flomax 0.4 mg Cap.sr] 0.4 mg PO PCSUPPER cap.sr.24h 06/23/16 Magnesium Oxide [Mag-Ox 400 mg Tablet] 400 mg PO BID tablet 06/24/16 Acetaminophen [Tylenol 325 mg Tablet] 650 mg PO Q4HP PRN 07/09/16 Ipratropium/Albuterol Sulfate [Duoneb 3 ml Ampul] 3 ml NEB RTQ8HP PRN 07/09/16 Allergies/Adverse Reactions: lorazepam [From Ativan] Adverse Reaction (Verified 07/09/16 05:05) Physical Exam Vital Signs: Temp Pulse Resp BP Pulse Ox 14 83/50 L 95 07/09/16 01:01 07/09/16 01:01 07/09/16 01:01 Results Laboratory Results: 07/09/16 01:06 07/09/16 01:06 Sodium 123.3 L Potassium 5.6 H Chloride 90 L Carbon Dioxide 22 Anion Gap 11 BUN 57 H Creatinine 1.31 H Est GFR ( Amer) > 60 Est GFR (Non-Af Amer) 54 L Glucose 111 H Calcium 9.2 Assessment & Plan - Diagnosis (1) Adrenal insufficiency Is this a current diagnosis for this admission?: YesPlan: At the present time are going with Solu-Cortef every 6 hours IV. (2) Hyperkalemia Is this a current diagnosis for this admission?: YesPlan: Serial chemistry. IV fluid. (3) Hyponatremia Is this a current diagnosis for this admission?: YesPlan: Serial chemistry. Appropriate IV fluid. (4) Septic shock Is this a current diagnosis for this admission?: YesPlan: Likely due to recurrent urinary tract infection. Previous urine culture results noted. Rocephin. Blood and urine cultures. I have strongly encouraged patient not to get out of bed to avoid a fall with injury. Knee high SCDs for DVT prophylaxis; with patient on Eliquis, no need for Lovenox or heparin. Time spent in evaluation and management of patient: 68 critical-care minutes. (5) Urinary tract infection associated with indwelling urethral catheter Qualifiers: Encounter type: initial encounter Qualified Code(s): T83.511A - Infection and inflammatory reaction due to indwelling urethral catheter, initial encounter; N39.0 - Urinary tract infection, site not specified Is this a current diagnosis for this admission?: Yes (6) Do not intubate but use all other measures Is this a current diagnosis for this admission?: YesPlan: We will maintain his current status, as noted in prior inpatient records. At 4:08 AM, July 09, spoke with daughter, using phone numbers available in electronic health record. She stated her mother, patient's , was actually the surrogate healthcare decision maker. At 4:10 AM this morning, generic voicemail was left on 's number provided by daughter. Spoke with by phone at 0550 this morning. She confirmed that she is patient's healthcare decision maker. Implications of DNI status discussed in layperson's terms. Her conversation was lucid and appropriate. She wishes to maintain this status. Will honor her wishes. - Inpatient Certification Based on my medical assessment, after consideration of the patient's comorbidities, presenting symptoms, or acuity I expect that the services needed warrant INPATIENT care.: Yes I certify that my determination is in accordance with my understanding of Medicare's requirements for reasonable and necessary INPATIENT services [42 CFR 412.3e].: Yes Medical Necessity: Need Close Monitoring Due to Risk of Patient Decompensation, Need For IV Fluids, Need For Continuous Telemetry Monitoring, Need for IV Antibiotics, Risk of Diagnosis Which Will Require Inpatient Eval/Care/Monitoring Post Hospital Care: D/C or Transfer Summary
[2016-07-09 05:39] LABS: ANION GAP 11 (5-19); BLOOD UREA NITROGEN 57 mg/dL (7-20); CALCIUM 9.6 mg/dL (8.4-10.2); CARBON DIOXIDE 26 mmol/L (22-30); CHLORIDE 88 mmol/L (98-107); CREATININE RESULT 1.21 mg/dL (0.52-1.25); GLUCOSE 114 mg/dL (75-110); MAGNESIUM 2.5 mg/dL (1.6-2.3); POTASSIUM 5.1 mmol/L (3.6-5.0); SODIUM 124.8 mmol/L (137-145)
[2016-07-09 05:41] LABS: HEMATOCRIT 36.6 % (37.9-51.0); HGB HCT DIFFERENCE -0.6; MEAN CORPUSCULAR HEMOGLOBIN 30.3 pg (27.0-33.4); MEAN CORPUSCULAR HGB CONC 32.9 g/dL (32.0-36.0); MEAN CORPUSCULAR VOLUME 92 fl (80-97); RED BLOOD COUNT 3.96 10^6/uL (4.35-5.55); RED CELL DISTRIBUTION WIDTH 16.3 % (11.5-14.0); WHITE BLOOD COUNT 8.5 10^3/uL (4.0-10.5)
[2016-07-09] MEDS ORDERED: CEFTRIAXONE INJ 1000 MG VIAL IV PRN (06:00)
[2016-07-09] MEDS ORDERED: CEFTRIAXONE 1 GM/D5W RTU 1 GM/50 ML RTUPB IV SCH (06:00)
[2016-07-09 06:13] LABS: BAND NEUTROPHILS % (MANUAL) 1 % (3-5); BASOPHILS % (MANUAL) 0 % (0-2); EOSINOPHILS % (MANUAL) 0 % (0-6); LYMPHOCYTES % (MANUAL) 3 % (13-45); TOTAL CELLS COUNTED 100
[2016-07-09 06:23] LABS: POLYCHROMASIA SLIGHT; TOXIC GRANULATION SLIGHT; TOXIC VACUOLATION PRESENT
[2016-07-09 06:24] LABS: ANISOCYTOSIS 1+; OVALOCYTES SLIGHT; POIKILOCYTOSIS SLIGHT; ROULEAUX SLIGHT; SCHISTOCYTES SLIGHT
[2016-07-09] MEDS: ACETAMINOPHEN 325 MG TABLET PO PRN (08:09)
[2016-07-09] MEDS ORDERED: HYDROCORTISONE SOD SUCCINATE INJ/PF 100 MG/2 ML SDV IV ONE (08:30)
[2016-07-09 09:02] LABS: HEMATOCRIT 36.6 % (37.9-51.0); HEMOGLOBIN 11.9 g/dL (13.5-17.0); HGB HCT DIFFERENCE -0.9; MEAN CORPUSCULAR HEMOGLOBIN 30.3 pg (27.0-33.4); MEAN CORPUSCULAR HGB CONC 32.6 g/dL (32.0-36.0); MEAN CORPUSCULAR VOLUME 93 fl (80-97); RED BLOOD COUNT 3.93 10^6/uL (4.35-5.55); RED CELL DISTRIBUTION WIDTH 16.3 % (11.5-14.0); WHITE BLOOD COUNT 9.4 10^3/uL (4.0-10.5)
[2016-07-09 09:03] LABS: ANISOCYTOSIS SLIGHT; BAND NEUTROPHILS % (MANUAL) 6 % (3-5); BASOPHILS % (MANUAL) 0 % (0-2); EOSINOPHILS % (MANUAL) 0 % (0-6); HYPOCHROMASIA SLIGHT; LYMPHOCYTES % (MANUAL) 6 % (13-45); OVALOCYTES SLIGHT; PLATELET CLUMPS PRESENT; POIKILOCYTOSIS SLIGHT; TOTAL CELLS COUNTED 100
--- NOTE | 2016-07-09 09:47 | PROGRESS NOTE E ---
Progress Note NAME: TUTU MURRAY : 1940 AGE: 75Y DATE: 07/09/2016 ROOM: 601 TIME SPENT MANAGING PATIENT: Thirty-five minutes. SUBJECTIVE: Patient actually has no complaints. He is sitting up in bed, actually being shaved by the nursing home manager. He denies fever, chills, headache, chest pain, shortness of breath, abdominal pain, nausea, or vomiting. Nursing reports that patient has a groin rash. OBJECTIVE: VITAL SIGNS: Temperature 97.6, blood pressure 107/72, pulse 77, respirations 13, and O2 saturation 98%. GENERAL: Patient sitting up in bed in no distress. Answers questions appropriately. Alert and oriented. HEENT: Sclerae are anicteric. Conjunctivae are clear. Oropharynx has moist mucous membranes. NECK: No JVD. Midline trachea. LUNGS: Clear to auscultation. No wheezes or rhonchi. HEART: Regular rate and rhythm. Abdomen is soft, nontender, nondistended, positive bowel sounds. No rebound. No guarding. EXTREMITIES: Have no edema, cyanosis, clubbing. SKIN: Erythematous rash. GENITOURINARY: Blake catheter in place. LABS: White blood count 8.5, hemoglobin 12.0, hematocrit 36.6, platelets 379. Chemistry panel: Sodium is 124, potassium 5.1, chloride 88, bicarb 26, BUN 57, creatinine 1.21, glucose 114, calcium 9.6, magnesium 2.5, troponin 0.025. EKG shows a ventricular paced rhythm. ASSESSMENT AND PLAN: 1. HYPOTENSION/SHOCK. I think this is likely more related to adrenal insufficiency in the setting of urinary tract infection than anything. He does not seem to be otherwise septic per se. He does not have a fever or leukocytosis that would be associated with septic shock. He is on stress-dose steroids at this time of IV Solu-Cortef. We will continue that for now. Blood pressure is currently stable and patient is asymptomatic with regard to hypotension. 2. URINARY TRACT INFECTION. Continue IV Rocephin, pending further culture and sensitivity. Discontinue Blake catheter and do bladder scans. 3. HISTORY OF URINARY RETENTION. Discontinue Blake catheter and do bladder scans every shift. Patient is on Flomax 0.4 mg daily. 4. ADRENAL INSUFFICIENCY. Continue stress-dose IV Solu-Cortef for now. 5. HYPOTENSION. Patient has chronic hypotension to some extent secondary to severe cardiomyopathy and adrenal insufficiency, which is being addressed. He normally takes midodrine, as well as hydrocortisone at baseline. Hypotension may be a little worse at this time secondary to ongoing urinary tract infection. 6. CHRONIC CONGESTIVE HEART FAILURE SECONDARY TO A SYSTOLIC DYSFUNCTION WITH AN EJECTION FRACTION OF 25%. Resume patient's torsemide. Continue Diovan. Hold DARSHAN inhibitor, spironolactone, and Inspra for now secondary to hyperkalemia. Discontinue IV fluids. 7. ANEMIA OF CHRONIC DISEASE. Hemoglobin is stable at 12.0. 8. ANXIETY. 9. BENIGN PROSTATIC HYPERTROPHY. Flomax. 10. CORONARY ARTERY DISEASE. 11. DYSPHAGIA. Continue pureed diet. 12. GASTROESOPHAGEAL REFLUX DISEASE. 13. HYPERKALEMIA. As mentioned, hold DARSHAN inhibitor, Aldactone, and Inspra. Followup labs in the morning. 14. SEIZURE DISORDER. 15. PACEMAKER. 16. ATRIAL FIBRILLATION. Currently in paced rhythm. 17. CHRONIC OBSTRUCTIVE PULMONARY DISEASE. 18. LONG-TERM USE OF ANTICOAGULATION. Continue Eliquis. 19. DO NOT INTUBATE STATUS. 20. TINEA CRURIS. Nystatin powder. 21. DISPOSITION: Patient resides at [facility] under the care of Dr. Armin Sibley and I plan on returning him there once he is medically stable. DICTATING PHYSICIAN: TUTU RIVERA M.D. [id number] PHY#: [id number] ID: [id number] JOB#: [id number] ACCT: [id number] cc: >
[2016-07-09] MEDS ORDERED: (PENDING PHARMACY ID) (Midodrine Hcl [Midodrine Hcl] 10 MG) PO SCH (10:00)
[2016-07-09] MEDS: ASPIRIN 81 MG TABLET, ENT COATED PO SCH (10:08)
[2016-07-09] MEDS: DOCUSATE SODIUM 100 MG CAPSULE PO SCH ×2 (10:08→17:53)
[2016-07-09] MEDS: APIXABAN 5 MG TABLET PO SCH ×2 (10:09→17:50)
[2016-07-09] MEDS: GABAPENTIN 300 MG CAPSULE PO PRN (10:09)
[2016-07-09] MEDS: DIGOXIN 0.125 MG TABLET PO SCH (10:09)
[2016-07-09] MEDS: MAGNESIUM OXIDE 400 MG TABLET PO SCH ×2 (10:10→17:53)
[2016-07-09] MEDS: TORSEMIDE 20 MG TABLET PO SCH (10:10)
[2016-07-09] MEDS: LACTOBACILLUS ACIDOPHILUS 250 MG TAB PO SCH ×2 (10:10→17:53)
[2016-07-09] MEDS: FERROUS SULFATE 325 MG TABLET PO SCH (10:11)
[2016-07-09] MEDS: MIDODRINE HCL 5 MG TABLET PO SCH ×2 (10:11→17:51)
[2016-07-09] MEDS: BUDESONIDE/FORMOTEROL 80-4.5 MCG 60 PUFF/6.9 GM MDI IH SCH ×2 (10:11→22:59)
[2016-07-09] MEDS: NYSTATIN TOPICAL POWDER 15 GM TP SCH ×2 (10:11→17:53)
--- NOTE | 2016-07-09 10:35 | EKG REPORT ---
SEVERITY:- ABNORMAL ECG - VENTRICULAR-PACED RHYTHM : Confirmed by: Jennifer Duvall MD 09-Jul-2016 10:34:29
[2016-07-09] MEDS: HYDROCORTISONE SOD SUCCINATE INJ/PF 100 MG/2 ML SDV IV SCH ×2 (13:06→17:53)
[2016-07-09 14:00] LABS: APPEARANCE,URINE CLEAR; BILIRUBIN,URINE NEGATIVE (NEGATIVE); GLUCOSE, URINE NEGATIVE (NEGATIVE); KETONES,URINE NEGATIVE (NEGATIVE); LEUKOCYTE ESTERASE,URINE MODERATE (NEGATIVE); NITRITE,URINE NEGATIVE (NEGATIVE); PROTEIN,URINE NEGATIVE (NEGATIVE); URINE SPECIFIC GRAVITY 1.005; UROBILINOGEN,URINE NEGATIVE mg/dL (<2.0)
[2016-07-09] MEDS: TAMSULOSIN HCL 0.4 MG CAP.SR.24H PO SCH (17:51)
[2016-07-09] MEDS: QUETIAPINE FUMARATE 25 MG TABLET PO SCH (22:59)
[2016-07-10] MEDS: METRONIDAZOLE 500 MG/NS RTU 100 ML IV SCH ×2 (00:36→05:05)
[2016-07-10] MEDS: HYDROCORTISONE SOD SUCCINATE INJ/PF 100 MG/2 ML SDV IV SCH ×2 (00:36→05:05)
[2016-07-10 04:45] LABS: ABSOLUTE LYMPHOCYTES (AUTO) 0.5 10^3/uL (0.5-4.7); ABSOLUTE MONOCYTES (AUTO) 0.5 10^3/uL (0.1-1.4); ABSOLUTE NEUT (AUTO) 6.7 10^3/uL (1.7-8.2); BASOPHILS % (AUTO) 0.5 % (0-2); EOSINOPHILS % (AUTO) 0.1 % (0-6); HEMATOCRIT 38.2 % (37.9-51.0); HEMOGLOBIN 12.4 g/dL (13.5-17.0); LYMPHOCYTES % (AUTO) 6.6 % (13-45); MEAN CORPUSCULAR HGB CONC 32.4 g/dL (32.0-36.0); MEAN CORPUSCULAR VOLUME 93 fl (80-97); MONOCYTES % (AUTO) 5.9 % (3-13); RED BLOOD COUNT 4.12 10^6/uL (4.35-5.55); RED CELL DISTRIBUTION WIDTH 16.5 % (11.5-14.0); SEGMENTED NEUTROPHILS % (AUTO) 86.9 % (42-78); WHITE BLOOD COUNT 7.8 10^3/uL (4.0-10.5)
[2016-07-10 04:58] LABS: ANION GAP 17 (5-19); BLOOD UREA NITROGEN 48 mg/dL (7-20); CALCIUM 9.8 mg/dL (8.4-10.2); CARBON DIOXIDE 24 mmol/L (22-30); CHLORIDE 86 mmol/L (98-107); CREATININE RESULT 0.93 mg/dL (0.52-1.25); GLUCOSE 203 mg/dL (75-110); SODIUM 126.8 mmol/L (137-145)
[2016-07-10] MEDS: ACETAMINOPHEN 325 MG TABLET PO PRN ×3 (05:05→21:33)
[2016-07-10 05:19] LABS: POTASSIUM 4.2 mmol/L (3.6-5.0)
[2016-07-10] MEDS: CEFTRIAXONE 1 GM/D5W RTU 1 GM/50 ML RTUPB IV SCH (06:12)
[2016-07-10] MEDS: DIGOXIN 0.125 MG TABLET PO SCH (09:23)
[2016-07-10] MEDS: FERROUS SULFATE 325 MG TABLET PO SCH (09:24)
[2016-07-10] MEDS: ASPIRIN 81 MG TABLET, ENT COATED PO SCH (09:24)
[2016-07-10] MEDS: DOCUSATE SODIUM 100 MG CAPSULE PO SCH ×2 (09:24→17:43)
[2016-07-10] MEDS: MAGNESIUM OXIDE 400 MG TABLET PO SCH ×2 (09:24→17:42)
[2016-07-10] MEDS: TORSEMIDE 20 MG TABLET PO SCH (09:24)
[2016-07-10] MEDS: HYDROCORTISONE 10 MG TABLET PO SCH ×2 (09:24→17:43)
[2016-07-10] MEDS: LACTOBACILLUS ACIDOPHILUS 250 MG TAB PO SCH ×2 (09:25→17:43)
[2016-07-10] MEDS: NYSTATIN TOPICAL POWDER 15 GM TP SCH ×2 (09:25→17:43)
[2016-07-10] MEDS: BUDESONIDE/FORMOTEROL 80-4.5 MCG 60 PUFF/6.9 GM MDI IH SCH ×2 (09:25→21:33)
[2016-07-10] MEDS: APIXABAN 5 MG TABLET PO SCH ×2 (09:26→17:44)
[2016-07-10] MEDS: MIDODRINE HCL 5 MG TABLET PO SCH ×3 (10:31→17:50)
[2016-07-10] MEDS: TAMSULOSIN HCL 0.4 MG CAP.SR.24H PO SCH (17:42)
--- NOTE | 2016-07-10 19:11 | PROGRESS NOTE E ---
Progress Note NAME: TUTU MURRAY : 1940 AGE: 75Y DATE: 07/10/2016 ROOM: 527 TIME: Time spent managing patient was 35 minutes. SUBJECTIVE: The patient has absolutely no complaints today. Nursing reports no issues. The patient denies fever, chills, headache, chest pain, abdominal pain, nausea, vomiting. OBJECTIVE: VITAL SIGNS: Temperature 97.8, blood pressure is 100/84, pulse 70, respirations 17, O2 saturation 97% on room air. GENERAL: The patient is alert, oriented, in no apparent distress, answers questions appropriately. HEENT: Sclerae are nonicteric. Conjunctivae clear. Oropharynx has moist mucous membranes. NECK: No JVD. Midline trachea. RESPIRATORY: Lungs clear to auscultation. No wheezing or rhonchi. CARDIAC: Regular rate and rhythm. No murmurs, gallops, or rubs. ABDOMEN: Soft, nontender, and nondistended. Positive bowel sounds. No rebound. No guarding. EXTREMITIES: No edema, cyanosis, or clubbing. GENITOURINARY: Carmona catheter in place. DIAGNOSTIC DATA: Labs: White blood count 7.8, hemoglobin 12.4. Sodium is 126, potassium 4.2, chloride 86, bicarb 24, BUN 48, creatinine 0.93, glucose 203, calcium 9.8. Blood cultures, both sets, from 07/08/2016, are growing gram-positive cocci in clusters. Urine culture from 07/08/2016 is growing gram-positive cocci in chains. Chest x-ray shows no acute radiographic findings of the chest. ASSESSMENT AND PLAN: 1. SEPTIC SHOCK. BLOOD PRESSURE IS NOW STABLE WITHOUT PRESSORS. THE PATIENT IS AFEBRILE. WHITE BLOOD COUNT IS NORMAL. Continue IV Rocephin for now pending further culture and sensitivity for positive urine and blood cultures. I will discontinue IV Solu-Cortef now and put patient on hydrocortisone 20 mg twice daily. 2. GRAM-POSITIVE BACTEREMIA. Continue IV Rocephin for now. I will repeat blood cultures today. If patient has persistently positive blood cultures, he may need echocardiogram to rule out endocarditis. 3. GRAM-POSITIVE URINARY TRACT INFECTION. THIS IS COMPLICATED BY CHRONIC CARMONA CATHETER. Continue IV Rocephin. 4. URINARY RETENTION. We attempted to discontinue Carmona catheter yesterday, but patient retained about 1 L of urine by the end of the shift, so Carmona catheter was replaced. Continue Flomax. The patient will need to be referred upon discharge for a urology evaluation. He does not have a regular urologist and has never seen a urologist in the past. Perhaps we can send him to see Dr. Amaya of [facility] in [place] office. 5. ADRENAL INSUFFICIENCY. Discontinue Solu-Cortef. Start hydrocortisone 20 mg twice daily. 6. CHRONIC HYPOTENSION. Continue hydrocortisone for adrenal insufficiency. Continue Midodrine. This condition is probably also worsened by patient's severe cardiomyopathy. 7. 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 Continue torsemide. Continue to hold DARSHAN inhibitor, spironolactone, and Inspra secondary to hypotension and hyperkalemia. 8. ANEMIA OF CHRONIC DISEASE. 9. ANXIETY. 10. BPH. 11. CORONARY ARTERY DISEASE. 12. DYSPHAGIA. Continue pureed diet. 13. GASTROESOPHAGEAL REFLUX DISEASE. 14. HYPERKALEMIA. DARSHAN inhibitor, Aldactone, Inspra - all being held. Potassium level is normal today. 15. SEIZURE DISORDER. 16. PACEMAKER. 17. ATRIAL FIBRILLATION, CURRENTLY IN PACED RHYTHM. 18. CHRONIC OBSTRUCTIVE PULMONARY DISEASE. 19. LONG-TERM USE OF ANTICOAGULATION. Continue Eliquis. 20. DO NOT INTUBATE STATUS. DICTATING PHYSICIAN: TUTU RIVERA M.D. [id number] PHY#: [id number] ID: [id number] JOB#: [id number] ACCT: [id number] cc: >
[2016-07-10] MEDS: QUETIAPINE FUMARATE 25 MG TABLET PO SCH (21:33)
[2016-07-11] MEDS: CEFTRIAXONE 1 GM/D5W RTU 1 GM/50 ML RTUPB IV SCH (05:30)
[2016-07-11 05:33] LABS: ANION GAP 11 (5-19); BLOOD UREA NITROGEN 37 mg/dL (7-20); CALCIUM 9.6 mg/dL (8.4-10.2); CARBON DIOXIDE 28 mmol/L (22-30); CHLORIDE 89 mmol/L (98-107); CREATININE RESULT 0.74 mg/dL (0.52-1.25); GLUCOSE 79 mg/dL (75-110); POTASSIUM 3.6 mmol/L (3.6-5.0)
[2016-07-11 06:36] LABS: ABSOLUTE BASOPHILS # (AUTO) 0.1 10^3/uL (0.0-0.2); ABSOLUTE EOSINOPHILS # (AUTO) 0.2 10^3/uL (0.0-0.6); ABSOLUTE NEUT (AUTO) 6.4 10^3/uL (1.7-8.2); EOSINOPHILS % (AUTO) 1.9 % (0-6); HEMATOCRIT 35.6 % (37.9-51.0); HGB HCT DIFFERENCE 0.4; LYMPHOCYTES % (AUTO) 11.2 % (13-45); MEAN CORPUSCULAR HEMOGLOBIN 30.3 pg (27.0-33.4); MEAN CORPUSCULAR HGB CONC 33.7 g/dL (32.0-36.0); MEAN CORPUSCULAR VOLUME 90 fl (80-97); MONOCYTES % (AUTO) 11.2 % (3-13); RED BLOOD COUNT 3.96 10^6/uL (4.35-5.55); SEGMENTED NEUTROPHILS % (AUTO) 74.7 % (42-78); WHITE BLOOD COUNT 8.6 10^3/uL (4.0-10.5)
[2016-07-11] MEDS: MIDODRINE HCL 5 MG TABLET PO SCH ×3 (08:02→15:53)
[2016-07-11] MEDS: ASPIRIN 81 MG TABLET, ENT COATED PO SCH (10:23)
[2016-07-11] MEDS: APIXABAN 5 MG TABLET PO SCH ×2 (10:24→17:11)
[2016-07-11] MEDS: MAGNESIUM OXIDE 400 MG TABLET PO SCH ×2 (10:25→17:11)
[2016-07-11] MEDS: DIGOXIN 0.125 MG TABLET PO SCH (10:25)
[2016-07-11] MEDS: FERROUS SULFATE 325 MG TABLET PO SCH (10:25)
[2016-07-11] MEDS: DOCUSATE SODIUM 100 MG CAPSULE PO SCH ×2 (10:25→17:12)
[2016-07-11] MEDS: TORSEMIDE 20 MG TABLET PO SCH (10:34)
[2016-07-11] MEDS: BUDESONIDE/FORMOTEROL 80-4.5 MCG 60 PUFF/6.9 GM MDI IH SCH ×2 (10:35→22:12)
[2016-07-11] MEDS: HYDROCORTISONE 10 MG TABLET PO SCH ×2 (10:36→17:12)
[2016-07-11] MEDS: LACTOBACILLUS ACIDOPHILUS 250 MG TAB PO SCH ×2 (10:36→17:12)
[2016-07-11] MEDS: NYSTATIN TOPICAL POWDER 15 GM TP SCH ×2 (10:36→17:13)
[2016-07-11] MEDS: ACETAMINOPHEN 325 MG TABLET PO PRN ×3 (10:39→22:12)
[2016-07-11] MEDS ORDERED: VANCOMYCIN HCL 0 MG in DEXTROSE 5%-WATER 250 ML IV NR (13:00)
--- NOTE | 2016-07-11 13:24 | PDOC PROGRESS REPORT ---
Subjective Progress Note for:: 07/11/16 Subjective:: Patient seen on morning rounds. He denies any shortness of breath, dyspena or cough. He denies any nausea, vomiting or abdominal pain. He denies any significant arthralgias or myalgias. He continues to have periods of confusion. Rest of the review of systems is negative. Physical Exam Vital Signs: Temp Pulse Resp BP Pulse Ox 98.9 F 135 H 16 128/98 H 94 07/11/16 10:59 07/11/16 10:59 07/11/16 10:59 07/11/16 10:59 07/11/16 10:59 Intake & Output 07/10/16 07/11/16 07/12/16 06:59 06:59 06:59 Intake Total 860 605 120 Output Total 1625 2165 Balance -765 -1560 120 General appearance: PRESENT: no acute distress, thin, well-developed, well- nourished Head exam: PRESENT: atraumatic, normocephalic Eye exam: PRESENT: conjunctiva pink, EOMI, PERRLA. ABSENT: scleral icterus Ear exam: PRESENT: normal external ear exam Mouth exam: PRESENT: moist, tongue midline Neck exam: ABSENT: carotid bruit, JVD, lymphadenopathy, thyromegaly Respiratory exam: PRESENT: clear to auscultation nic. ABSENT: rales, rhonchi, wheezes Cardiovascular exam: PRESENT: RRR. ABSENT: diastolic murmur, rubs, systolic murmur Pulses: PRESENT: normal dorsalis pedis pul Vascular exam: PRESENT: normal capillary refill GI/Abdominal exam: PRESENT: ascites Rectal exam: PRESENT: deferred Extremities exam: PRESENT: full ROM. ABSENT: calf tenderness, clubbing, pedal edema Neurological exam: PRESENT: alert, oriented to person, oriented to place, oriented to situation, CN II-XII grossly intact Psychiatric exam: PRESENT: appropriate affect, normal mood. ABSENT: homicidal ideation, suicidal ideation Skin exam: PRESENT: dry, intact, warm. ABSENT: cyanosis, rash Results Laboratory Results: 07/11/16 06:04 07/11/16 04:47 07/11/16 07/11/16 07/11/16 04:47 04:47 06:04 WBC Cancelled 8.6 RBC Cancelled 3.96 L Hgb Cancelled 12.0 L Hct Cancelled 35.6 L MCV Cancelled 90 MCH Cancelled 30.3 MCHC Cancelled 33.7 RDW Cancelled 16.0 H Plt Count Cancelled 369 Seg Neutrophils % Cancelled 74.7 Lymphocytes % Cancelled 11.2 L Monocytes % Cancelled 11.2 Eosinophils % Cancelled 1.9 Basophils % Cancelled 1.0 Absolute Neutrophils Cancelled 6.4 Absolute Lymphocytes Cancelled 1.0 Absolute Monocytes Cancelled 1.0 Absolute Eosinophils Cancelled 0.2 Absolute Basophils Cancelled 0.1 Sodium 128.0 L Potassium 3.6 Chloride 89 L Carbon Dioxide 28 Anion Gap 11 BUN 37 H Creatinine 0.74 Est GFR ( Amer) > 60 Est GFR (Non-Af Amer) > 60 Glucose 79 Calcium 9.6 07/09/16 04:58 Troponin I 0.025 Impressions: Chest X-Ray 07/10/16 07:35 IMPRESSION: NO ACUTE RADIOGRAPHIC FINDING IN THE CHEST. Assessment & Plan - Diagnosis (1) Bacteremia Is this a current diagnosis for this admission?: YesPlan: Second set of blood cultures positive for gram-positive cocci. IV vancomycin was added to antibiotic regimen (2) Hypotension Qualifiers: Hypotension type: unspecified hypotension type Qualified Code(s): I95.9 - Hypotension, unspecified Is this a current diagnosis for this admission?: YesPlan: Secondary to sepsis and dehydration. Now resolved to baseline with IV hydration and antibiotics. Continue midodrine (3) Urinary tract infection associated with indwelling urethral catheter Qualifiers: Encounter type: initial encounter Qualified Code(s): T83.511A - Infection and inflammatory reaction due to indwelling urethral catheter, initial encounter; N39.0 - Urinary tract infection, site not specified Is this a current diagnosis for this admission?: YesPlan: Continue current antibiotic (4) Hyponatremia Is this a current diagnosis for this admission?: YesPlan: Secondary to heart failure (5) Hyperkalemia Is this a current diagnosis for this admission?: Yes (6) Do not intubate but use all other measures Is this a current diagnosis for this admission?: YesPlan: Patient and family made decision (7) BPH (benign prostatic hyperplasia) Qualifiers: Prostatic enlargement morphology: unspecified morphology Lower urinary tract symptom presence: presence of symptoms unspecified Qualified Code(s ): N40.0 - Benign prostatic hyperplasia without lower urinary tract symptoms Is this a current diagnosis for this admission?: Yes (8) Anxiety Is this a current diagnosis for this admission?: Yes (9) Coronary artery disease Qualifiers: Coronary Disease-Associated Artery/Lesion type: [place] artery [place] vs. transplanted heart: [place] heart Associated angina: angina presence unspecified Qualified Code(s): I25.10 - Atherosclerotic heart disease of [place] coronary artery without angina pectoris Plan: Continue current meds - Time Time Spent with patient: 25-34 minutes Critical Time spent with patient: 15-24 minutes Medications reviewed and adjusted accordingly: Yes Anticipated discharge: Acute Rehab
[2016-07-11] MEDS: VANCOMYCIN HCL 1,000 MG in DEXTROSE 5%-WATER 250 ML IV SCH (15:53)
[2016-07-11] MEDS: TAMSULOSIN HCL 0.4 MG CAP.SR.24H PO SCH (17:11)
[2016-07-11] MEDS: QUETIAPINE FUMARATE 25 MG TABLET PO SCH (22:12)
[2016-07-12] MEDS: VANCOMYCIN HCL 1,000 MG in DEXTROSE 5%-WATER 250 ML IV SCH (03:47)
[2016-07-12 05:27] LABS: ABSOLUTE EOSINOPHILS # (AUTO) 0.3 10^3/uL (0.0-0.6); ABSOLUTE MONOCYTES (AUTO) 1.2 10^3/uL (0.1-1.4); ABSOLUTE NEUT (AUTO) 5.3 10^3/uL (1.7-8.2); BASOPHILS % (AUTO) 0.5 % (0-2); EOSINOPHILS % (AUTO) 3.5 % (0-6); HEMATOCRIT 33.9 % (37.9-51.0); HEMOGLOBIN 11.5 g/dL (13.5-17.0); HGB HCT DIFFERENCE 0.6; LYMPHOCYTES % (AUTO) 13.1 % (13-45); MEAN CORPUSCULAR HGB CONC 33.8 g/dL (32.0-36.0); MEAN CORPUSCULAR VOLUME 89 fl (80-97); MONOCYTES % (AUTO) 15.1 % (3-13); RED BLOOD COUNT 3.81 10^6/uL (4.35-5.55); RED CELL DISTRIBUTION WIDTH 15.9 % (11.5-14.0); SEGMENTED NEUTROPHILS % (AUTO) 67.8 % (42-78); WHITE BLOOD COUNT 7.8 10^3/uL (4.0-10.5)
[2016-07-12 05:42] LABS: ANION GAP 11 (5-19); BLOOD UREA NITROGEN 28 mg/dL (7-20); CALCIUM 9.1 mg/dL (8.4-10.2); CARBON DIOXIDE 30 mmol/L (22-30); CHLORIDE 89 mmol/L (98-107); CREATININE RESULT 0.68 mg/dL (0.52-1.25); GLUCOSE 139 mg/dL (75-110); POTASSIUM 3.2 mmol/L (3.6-5.0); SODIUM 130.2 mmol/L (137-145)
[2016-07-12] MEDS: ACETAMINOPHEN 325 MG TABLET PO PRN ×2 (06:24→21:56)
[2016-07-12] MEDS: CEFTRIAXONE 1 GM/D5W RTU 1 GM/50 ML RTUPB IV SCH (06:24)
[2016-07-12] MEDS: MIDODRINE HCL 5 MG TABLET PO SCH ×3 (07:57→16:30)
[2016-07-12] MEDS ORDERED: POLYETHYLENE GLYCOL 3350 POWDER 17 GM/1 PACKET PO PRN (09:34)
--- NOTE | 2016-07-12 09:39 | PDOC PROGRESS REPORT ---
Subjective Progress Note for:: 07/12/16 Subjective:: Patient seen on morning rounds. He denies any shortness of breath, dyspnea or cough. He denies any nausea, vomiting or abdominal pain. He denies any significant arthralgias or myalgias. He continues to have periods of confusion, especially at night. Rest of the review of systems is negative. Physical Exam Vital Signs: Temp Pulse Resp BP Pulse Ox 98.1 F 123 H 17 91/51 L 97 07/12/16 07:16 07/12/16 07:16 07/12/16 07:16 07/12/16 07:16 07/12/16 07:16 Intake & Output 07/11/16 07/12/16 07/13/16 06:59 06:59 06:59 Intake Total 605 1200 Output Total 2165 1400 Balance -1560 -200 General appearance: PRESENT: no acute distress, thin, well-developed, well- nourished Head exam: PRESENT: atraumatic, normocephalic Eye exam: PRESENT: conjunctiva pink, EOMI, PERRLA. ABSENT: scleral icterus Ear exam: PRESENT: normal external ear exam Mouth exam: PRESENT: moist, tongue midline Neck exam: ABSENT: carotid bruit, JVD, lymphadenopathy, thyromegaly Respiratory exam: PRESENT: clear to auscultation nic. ABSENT: rales, rhonchi, wheezes Cardiovascular exam: PRESENT: RRR. ABSENT: diastolic murmur, rubs, systolic murmur Pulses: PRESENT: normal dorsalis pedis pul Vascular exam: PRESENT: normal capillary refill GI/Abdominal exam: PRESENT: normal bowel sounds, soft. ABSENT: distended, guarding, mass, organolmegaly, rebound, tenderness Rectal exam: PRESENT: deferred Extremities exam: PRESENT: full ROM. ABSENT: calf tenderness, clubbing, pedal edema Musculoskeletal exam: PRESENT: full ROM, normal inspection Neurological exam: PRESENT: alert, awake, oriented to person, oriented to place , oriented to time, oriented to situation, CN II-XII grossly intact. ABSENT: motor sensory deficit Psychiatric exam: PRESENT: appropriate affect, normal mood. ABSENT: homicidal ideation, suicidal ideation Skin exam: PRESENT: dry, intact, warm. ABSENT: cyanosis, rash Results Laboratory Results: 07/12/16 05:00 07/12/16 05:00 07/12/16 07/12/16 05:00 05:00 WBC 7.8 RBC 3.81 L Hgb 11.5 L Hct 33.9 L MCV 89 MCH 30.0 MCHC 33.8 RDW 15.9 H Plt Count 356 Seg Neutrophils % 67.8 Lymphocytes % 13.1 Monocytes % 15.1 H Eosinophils % 3.5 Basophils % 0.5 Absolute Neutrophils 5.3 Absolute Lymphocytes 1.0 Absolute Monocytes 1.2 Absolute Eosinophils 0.3 Absolute Basophils 0.0 Sodium 130.2 L Potassium 3.2 L Chloride 89 L Carbon Dioxide 30 Anion Gap 11 BUN 28 H Creatinine 0.68 Est GFR ( Amer) > 60 Est GFR (Non-Af Amer) > 60 Glucose 139 H Calcium 9.1 07/09/16 04:58 Troponin I 0.025 Impressions: Chest X-Ray 07/10/16 07:35 IMPRESSION: NO ACUTE RADIOGRAPHIC FINDING IN THE CHEST. Assessment & Plan - Diagnosis (1) Bacteremia Is this a current diagnosis for this admission?: YesPlan: Second set of blood cultures positive for gram-positive cocci. Urine grew VRE. Antibiotics changed to Daptomycin (2) Hypotension Qualifiers: Hypotension type: unspecified hypotension type Qualified Code(s): I95.9 - Hypotension, unspecified Is this a current diagnosis for this admission?: YesPlan: Secondary to sepsis and dehydration. Now resolved to baseline with IV hydration and antibiotics. Continue midodrine (3) Urinary tract infection associated with indwelling urethral catheter Qualifiers: Encounter type: initial encounter Qualified Code(s): T83.511A - Infection and inflammatory reaction due to indwelling urethral catheter, initial encounter; N39.0 - Urinary tract infection, site not specified Is this a current diagnosis for this admission?: YesPlan: Culture grew VRE. Antibiotics changed to Daptomycin (4) Hyponatremia Is this a current diagnosis for this admission?: YesPlan: Secondary to heart failure (5) Hyperkalemia Is this a current diagnosis for this admission?: YesPlan: Resolved (6) Do not intubate but use all other measures Is this a current diagnosis for this admission?: YesPlan: Patient and family made decision (7) BPH (benign prostatic hyperplasia) Qualifiers: Prostatic enlargement morphology: unspecified morphology Lower urinary tract symptom presence: presence of symptoms unspecified Qualified Code(s ): N40.0 - Benign prostatic hyperplasia without lower urinary tract symptoms Is this a current diagnosis for this admission?: Yes (8) Anxiety Is this a current diagnosis for this admission?: Yes (9) Coronary artery disease Qualifiers: Coronary Disease-Associated Artery/Lesion type: [place] artery [place] vs. transplanted heart: [place] heart Associated angina: angina presence unspecified Qualified Code(s): I25.10 - Atherosclerotic heart disease of [place] coronary artery without angina pectoris Plan: Continue current meds - Time Time Spent with patient: 25-34 minutes Critical Time spent with patient: 15-24 minutes Medications reviewed and adjusted accordingly: Yes Anticipated discharge: Acute Rehab
[2016-07-12] MEDS: LACTOBACILLUS ACIDOPHILUS 250 MG TAB PO SCH ×2 (10:57→17:43)
[2016-07-12] MEDS: HYDROCORTISONE 10 MG TABLET PO SCH ×2 (10:57→17:44)
[2016-07-12] MEDS: FERROUS SULFATE 325 MG TABLET PO SCH (10:58)
[2016-07-12] MEDS: DOCUSATE SODIUM 100 MG CAPSULE PO SCH ×2 (10:58→17:44)
[2016-07-12] MEDS: DIGOXIN 0.125 MG TABLET PO SCH (10:58)
[2016-07-12] MEDS: ASPIRIN 81 MG TABLET, ENT COATED PO SCH (10:58)
[2016-07-12] MEDS: MAGNESIUM OXIDE 400 MG TABLET PO SCH ×2 (10:58→17:44)
[2016-07-12] MEDS: BUDESONIDE/FORMOTEROL 80-4.5 MCG 60 PUFF/6.9 GM MDI IH SCH ×2 (10:59→21:57)
[2016-07-12] MEDS: APIXABAN 5 MG TABLET PO SCH ×2 (10:59→17:43)
[2016-07-12] MEDS: TORSEMIDE 20 MG TABLET PO SCH (10:59)
[2016-07-12] MEDS: DAPTOMYCIN 500 MG in NORMAL SALINE 50 ML IV SCH (11:06)
[2016-07-12] MEDS: NYSTATIN TOPICAL POWDER 15 GM TP SCH ×2 (11:07→17:44)
[2016-07-12] MEDS: TAMSULOSIN HCL 0.4 MG CAP.SR.24H PO SCH (17:43)
[2016-07-13] MEDS: QUETIAPINE FUMARATE 25 MG TABLET PO SCH ×2 (01:19→22:21)
[2016-07-13] MEDS: MIDODRINE HCL 5 MG TABLET PO SCH ×3 (07:47→15:50)
[2016-07-13] MEDS: MAGNESIUM OXIDE 400 MG TABLET PO SCH ×2 (10:11→17:35)
[2016-07-13] MEDS: HYDROCORTISONE 10 MG TABLET PO SCH ×2 (10:12→17:34)
[2016-07-13] MEDS: ASPIRIN 81 MG TABLET, ENT COATED PO SCH (10:12)
[2016-07-13] MEDS: FERROUS SULFATE 325 MG TABLET PO SCH (10:12)
[2016-07-13] MEDS: TORSEMIDE 20 MG TABLET PO SCH (10:12)
[2016-07-13] MEDS: LACTOBACILLUS ACIDOPHILUS 250 MG TAB PO SCH ×2 (10:12→17:34)
[2016-07-13] MEDS: DOCUSATE SODIUM 100 MG CAPSULE PO SCH ×2 (10:12→17:35)
[2016-07-13] MEDS: DAPTOMYCIN 500 MG in NORMAL SALINE 50 ML IV SCH (10:13)
[2016-07-13] MEDS: APIXABAN 5 MG TABLET PO SCH ×2 (10:13→17:35)
[2016-07-13] MEDS: DIGOXIN 0.125 MG TABLET PO SCH (10:13)
[2016-07-13] MEDS: BUDESONIDE/FORMOTEROL 80-4.5 MCG 60 PUFF/6.9 GM MDI IH SCH ×2 (10:14→22:04)
[2016-07-13] MEDS: NYSTATIN TOPICAL POWDER 15 GM TP SCH ×2 (10:15→17:35)
--- NOTE | 2016-07-13 10:16 | PDOC PROGRESS REPORT ---
Subjective Progress Note for:: 07/13/16 Subjective:: Patient seen on morning rounds. He denies any shortness of breath, dyspnea or cough. He denies any nausea, vomiting or abdominal pain. He denies any significant arthralgias or myalgias. He continues to have periods of confusion, especially at night. Rest of the review of systems is negative. Physical Exam Vital Signs: Temp Pulse Resp BP Pulse Ox 97.2 F 70 20 104/62 99 07/13/16 08:22 07/13/16 08:22 07/13/16 08:22 07/13/16 08:25 07/13/16 08:22 Intake & Output 07/12/16 07/13/16 07/14/16 06:59 06:59 06:59 Intake Total 1200 580 Output Total 1400 700 Balance -200 -120 General appearance: PRESENT: no acute distress, thin, well-developed, well- nourished Head exam: PRESENT: atraumatic, normocephalic Eye exam: PRESENT: conjunctiva pink, EOMI, PERRLA. ABSENT: scleral icterus Ear exam: PRESENT: normal external ear exam Mouth exam: PRESENT: moist, tongue midline Neck exam: ABSENT: carotid bruit, JVD, lymphadenopathy, thyromegaly Respiratory exam: PRESENT: clear to auscultation nic. ABSENT: rales, rhonchi, wheezes Cardiovascular exam: PRESENT: RRR. ABSENT: diastolic murmur, rubs, systolic murmur Pulses: PRESENT: normal dorsalis pedis pul Vascular exam: PRESENT: normal capillary refill GI/Abdominal exam: PRESENT: normal bowel sounds, soft. ABSENT: distended, guarding, mass, organolmegaly, rebound, tenderness Rectal exam: PRESENT: deferred Extremities exam: PRESENT: full ROM. ABSENT: calf tenderness, clubbing, pedal edema Musculoskeletal exam: PRESENT: ambulatory, full ROM, normal inspection Neurological exam: PRESENT: alert, awake, oriented to person, oriented to place , oriented to time, oriented to situation, CN II-XII grossly intact. ABSENT: motor sensory deficit Psychiatric exam: PRESENT: appropriate affect, normal mood. ABSENT: homicidal ideation, suicidal ideation Skin exam: PRESENT: dry, intact, skin tears - bilateral arm, warm. ABSENT: cyanosis, rash Results Laboratory Results: 07/12/16 05:00 07/12/16 05:00 07/10/16 09:33 Blood Blood Culture - Final Mrsa (Meth Resis Staph Aureus) 07/10/16 09:02 Blood Blood Culture - Final Mrsa (Meth Resis Staph Aureus) 07/09/16 04:58 Troponin I 0.025 Impressions: Chest X-Ray 07/10/16 07:35 IMPRESSION: NO ACUTE RADIOGRAPHIC FINDING IN THE CHEST. Assessment & Plan - Diagnosis (1) Bacteremia Is this a current diagnosis for this admission?: YesPlan: Second set of blood cultures positive for MRSA Urine grew VRE. Antibiotics changed to Daptomycin. Will repeat blood cultures this afternoon.Place PicC line once they are clear (2) Hypotension Qualifiers: Hypotension type: unspecified hypotension type Qualified Code(s): I95.9 - Hypotension, unspecified Is this a current diagnosis for this admission?: YesPlan: Secondary to sepsis and dehydration. Now resolved to baseline with IV hydration and antibiotics. Continue midodrine (3) Urinary tract infection associated with indwelling urethral catheter Qualifiers: Encounter type: initial encounter Qualified Code(s): T83.511A - Infection and inflammatory reaction due to indwelling urethral catheter, initial encounter; N39.0 - Urinary tract infection, site not specified Is this a current diagnosis for this admission?: YesPlan: Culture grew VRE. Antibiotics changed to Daptomycin (4) Hyponatremia Is this a current diagnosis for this admission?: YesPlan: Secondary to heart failure (5) Hyperkalemia Is this a current diagnosis for this admission?: YesPlan: Resolved (6) Do not intubate but use all other measures Is this a current diagnosis for this admission?: YesPlan: Patient and family made decision (7) BPH (benign prostatic hyperplasia) Qualifiers: Prostatic enlargement morphology: unspecified morphology Lower urinary tract symptom presence: presence of symptoms unspecified Qualified Code(s ): N40.0 - Benign prostatic hyperplasia without lower urinary tract symptoms Is this a current diagnosis for this admission?: Yes (8) Anxiety Is this a current diagnosis for this admission?: Yes (9) Coronary artery disease Qualifiers: Coronary Disease-Associated Artery/Lesion type: [place] artery [place] vs. transplanted heart: [place] heart Associated angina: angina presence unspecified Qualified Code(s): I25.10 - Atherosclerotic heart disease of [place] coronary artery without angina pectoris Plan: Continue current meds - Time Time Spent with patient: 25-34 minutes Critical Time spent with patient: 15-24 minutes Medications reviewed and adjusted accordingly: Yes Anticipated discharge: Acute Rehab
[2016-07-13] MEDS: TAMSULOSIN HCL 0.4 MG CAP.SR.24H PO SCH (17:34)
[2016-07-13] MEDS: ACETAMINOPHEN 325 MG TABLET PO PRN (20:32)
[2016-07-14] MEDS: ACETAMINOPHEN 325 MG TABLET PO PRN (05:22)
--- NOTE | 2016-07-14 09:55 | PDOC PROGRESS REPORT ---
Subjective Progress Note for:: 07/14/16 Subjective:: Patient seen on morning rounds. He denies any shortness of breath, dyspnea or cough. He denies any nausea, vomiting or abdominal pain. He denies any significant arthralgias or myalgias. He continues to have periods of confusion, especially at night. Rest of the review of systems is negative. Physical Exam Vital Signs: Temp Pulse Resp BP Pulse Ox 97 F L 70 18 135/60 H 100 07/14/16 08:00 07/14/16 08:00 07/14/16 08:00 07/14/16 08:00 07/14/16 08:00 Intake & Output 07/13/16 07/14/16 07/15/16 06:59 06:59 06:59 Intake Total 580 1160 Output Total 700 1900 Balance -120 -740 General appearance: PRESENT: no acute distress, thin, well-developed Head exam: PRESENT: atraumatic, normocephalic Eye exam: PRESENT: conjunctiva pink, EOMI, PERRLA. ABSENT: scleral icterus Ear exam: PRESENT: normal external ear exam Mouth exam: PRESENT: moist, tongue midline Neck exam: ABSENT: carotid bruit, JVD, lymphadenopathy, thyromegaly Respiratory exam: PRESENT: clear to auscultation nic. ABSENT: rales, rhonchi, wheezes Cardiovascular exam: PRESENT: RRR. ABSENT: diastolic murmur, rubs, systolic murmur Pulses: PRESENT: normal carotid pulses, normal radial pulses Vascular exam: PRESENT: normal capillary refill GI/Abdominal exam: PRESENT: normal bowel sounds, soft. ABSENT: distended, guarding, mass, organolmegaly, rebound, tenderness Rectal exam: PRESENT: deferred Extremities exam: PRESENT: full ROM Musculoskeletal exam: PRESENT: ambulatory, full ROM, normal inspection Neurological exam: PRESENT: alert, awake, oriented to person, oriented to place , oriented to time, CN II-XII grossly intact Psychiatric exam: PRESENT: appropriate affect, normal mood. ABSENT: homicidal ideation, suicidal ideation Skin exam: PRESENT: dry, skin tears Results Laboratory Results: 07/12/16 05:00 07/12/16 05:00 07/10/16 09:33 Blood Blood Culture - Final Mrsa (Meth Resis Staph Aureus) 07/10/16 09:02 Blood Blood Culture - Final Mrsa (Meth Resis Staph Aureus) 07/09/16 04:58 Troponin I 0.025 Impressions: Chest X-Ray 07/10/16 07:35 IMPRESSION: NO ACUTE RADIOGRAPHIC FINDING IN THE CHEST. Assessment & Plan - Diagnosis (1) Bacteremia Is this a current diagnosis for this admission?: YesPlan: Repeat cultures are negative (2) Hypotension Qualifiers: Hypotension type: unspecified hypotension type Qualified Code(s): I95.9 - Hypotension, unspecified Is this a current diagnosis for this admission?: YesPlan: Secondary to sepsis and dehydration. Now resolved to baseline with IV hydration and antibiotics. Continue midodrine (3) Urinary tract infection associated with indwelling urethral catheter Qualifiers: Encounter type: initial encounter Qualified Code(s): T83.511A - Infection and inflammatory reaction due to indwelling urethral catheter, initial encounter; N39.0 - Urinary tract infection, site not specified Is this a current diagnosis for this admission?: YesPlan: Culture grew VRE. Antibiotics changed to Daptomycin (4) Hyponatremia Is this a current diagnosis for this admission?: YesPlan: Secondary to heart failure (5) Hyperkalemia Is this a current diagnosis for this admission?: YesPlan: Resolved (6) Do not intubate but use all other measures Is this a current diagnosis for this admission?: YesPlan: Patient and family made decision (7) BPH (benign prostatic hyperplasia) Qualifiers: Prostatic enlargement morphology: unspecified morphology Lower urinary tract symptom presence: presence of symptoms unspecified Qualified Code(s ): N40.0 - Benign prostatic hyperplasia without lower urinary tract symptoms Is this a current diagnosis for this admission?: YesPlan: Continue flomax (8) Anxiety Is this a current diagnosis for this admission?: Yes (9) Coronary artery disease Qualifiers: Coronary Disease-Associated Artery/Lesion type: [place] artery [place] vs. transplanted heart: [place] heart Associated angina: angina presence unspecified Qualified Code(s): I25.10 - Atherosclerotic heart disease of [place] coronary artery without angina pectoris Plan: Continue current meds - Time Time Spent with patient: 25-34 minutes Critical Time spent with patient: 15-24 minutes Medications reviewed and adjusted accordingly: Yes Anticipated discharge: Acute Rehab
[2016-07-14] MEDS: MIDODRINE HCL 5 MG TABLET PO SCH ×3 (10:37→16:39)
[2016-07-14] MEDS: DOCUSATE SODIUM 100 MG CAPSULE PO SCH ×2 (10:37→18:56)
[2016-07-14] MEDS: MAGNESIUM OXIDE 400 MG TABLET PO SCH ×2 (10:37→18:56)
[2016-07-14] MEDS: DIGOXIN 0.125 MG TABLET PO SCH (10:37)
[2016-07-14] MEDS: ASPIRIN 81 MG TABLET, ENT COATED PO SCH (10:37)
[2016-07-14] MEDS: LACTOBACILLUS ACIDOPHILUS 250 MG TAB PO SCH ×2 (10:37→18:56)
[2016-07-14] MEDS: BUDESONIDE/FORMOTEROL 80-4.5 MCG 60 PUFF/6.9 GM MDI IH SCH ×2 (10:37→21:22)
[2016-07-14] MEDS: FERROUS SULFATE 325 MG TABLET PO SCH (10:37)
[2016-07-14] MEDS: DAPTOMYCIN 500 MG in NORMAL SALINE 50 ML IV SCH (10:38)
[2016-07-14] MEDS: HYDROCORTISONE 10 MG TABLET PO SCH ×2 (10:38→18:56)
[2016-07-14] MEDS: APIXABAN 5 MG TABLET PO SCH ×2 (10:38→18:56)
[2016-07-14] MEDS: NYSTATIN TOPICAL POWDER 15 GM TP SCH ×2 (10:38→18:56)
[2016-07-14] MEDS: TAMSULOSIN HCL 0.4 MG CAP.SR.24H PO SCH (18:56)
[2016-07-14] MEDS: QUETIAPINE FUMARATE 25 MG TABLET PO SCH (21:22)
[2016-07-15 06:31] LABS: ANION GAP 9 (5-19); BLOOD UREA NITROGEN 23 mg/dL (7-20); CALCIUM 8.8 mg/dL (8.4-10.2); CARBON DIOXIDE 32 mmol/L (22-30); CHLORIDE 87 mmol/L (98-107); GLUCOSE 131 mg/dL (75-110); MAGNESIUM 1.9 mg/dL (1.6-2.3); POTASSIUM 3.1 mmol/L (3.6-5.0); SODIUM 128.4 mmol/L (137-145)
[2016-07-15] MEDS: MAGNESIUM OXIDE 400 MG TABLET PO SCH ×2 (09:17→17:30)
[2016-07-15] MEDS: FERROUS SULFATE 325 MG TABLET PO SCH (09:17)
[2016-07-15] MEDS: APIXABAN 5 MG TABLET PO SCH ×2 (09:17→17:30)
[2016-07-15] MEDS: DOCUSATE SODIUM 100 MG CAPSULE PO SCH ×2 (09:17→17:30)
[2016-07-15] MEDS: BUDESONIDE/FORMOTEROL 80-4.5 MCG 60 PUFF/6.9 GM MDI IH SCH ×2 (09:17→21:21)
[2016-07-15] MEDS: LACTOBACILLUS ACIDOPHILUS 250 MG TAB PO SCH ×2 (09:17→17:30)
[2016-07-15] MEDS: DIGOXIN 0.125 MG TABLET PO SCH (09:17)
[2016-07-15] MEDS: NYSTATIN TOPICAL POWDER 15 GM TP SCH ×2 (09:18→17:31)
[2016-07-15] MEDS: MIDODRINE HCL 5 MG TABLET PO SCH ×3 (09:18→17:31)
[2016-07-15] MEDS: HYDROCORTISONE 10 MG TABLET PO SCH ×2 (09:18→17:30)
[2016-07-15] MEDS: ASPIRIN 81 MG TABLET, ENT COATED PO SCH (10:05)
--- NOTE | 2016-07-15 10:45 | PDOC PROGRESS REPORT ---
Subjective Progress Note for:: 07/15/16 Subjective:: Patient seen on morning rounds. He denies any shortness of breath, dyspnea or cough. He denies any nausea, vomiting or abdominal pain. He denies any significant arthralgias or myalgias. He has not had confusion at night since stopping his seroquel. Rest of the review of systems is negative. Physical Exam Vital Signs: Temp Pulse Resp BP Pulse Ox 97.4 F 70 17 107/59 L 98 07/15/16 08:17 07/15/16 08:17 07/15/16 08:17 07/15/16 08:17 07/15/16 08:17 Intake & Output 07/14/16 07/15/16 07/16/16 06:59 06:59 06:59 Intake Total 1160 1760 Output Total 1900 950 Balance -740 810 Weight 71.3 kg General appearance: PRESENT: no acute distress, well-developed, well-nourished Head exam: PRESENT: atraumatic, normocephalic Eye exam: PRESENT: conjunctiva pink, EOMI, PERRLA. ABSENT: scleral icterus Ear exam: PRESENT: normal external ear exam Mouth exam: PRESENT: moist, tongue midline Neck exam: ABSENT: carotid bruit, JVD, lymphadenopathy, thyromegaly Respiratory exam: PRESENT: clear to auscultation nic. ABSENT: rales, rhonchi, wheezes Cardiovascular exam: PRESENT: RRR. ABSENT: diastolic murmur, rubs, systolic murmur Pulses: PRESENT: normal dorsalis pedis pul Vascular exam: PRESENT: normal capillary refill GI/Abdominal exam: PRESENT: normal bowel sounds, soft. ABSENT: distended, guarding, mass, organolmegaly, rebound, tenderness Rectal exam: PRESENT: deferred Extremities exam: PRESENT: full ROM. ABSENT: calf tenderness, clubbing, pedal edema Neurological exam: PRESENT: alert, awake, oriented to person, oriented to place , oriented to time, oriented to situation, CN II-XII grossly intact. ABSENT: motor sensory deficit Psychiatric exam: PRESENT: agitated Skin exam: PRESENT: dry, normal color, skin tears, warm Results Laboratory Results: 07/12/16 05:00 07/15/16 05:26 07/15/16 05:26 Sodium 128.4 L Potassium 3.1 L Chloride 87 L Carbon Dioxide 32 H Anion Gap 9 BUN 23 H Creatinine 0.60 Est GFR ( Amer) > 60 Est GFR (Non-Af Amer) > 60 Glucose 131 H Calcium 8.8 Magnesium 1.9 07/09/16 04:58 Troponin I 0.025 Impressions: Chest X-Ray 07/10/16 07:35 IMPRESSION: NO ACUTE RADIOGRAPHIC FINDING IN THE CHEST. Assessment & Plan - Diagnosis (1) Bacteremia Is this a current diagnosis for this admission?: YesPlan: Repeat cultures are negative (2) Hypotension Qualifiers: Hypotension type: unspecified hypotension type Qualified Code(s): I95.9 - Hypotension, unspecified Is this a current diagnosis for this admission?: YesPlan: Secondary to sepsis and dehydration. Now resolved to baseline with IV hydration and antibiotics. Continue midodrine (3) Urinary tract infection associated with indwelling urethral catheter Qualifiers: Encounter type: initial encounter Qualified Code(s): T83.511A - Infection and inflammatory reaction due to indwelling urethral catheter, initial encounter; N39.0 - Urinary tract infection, site not specified Is this a current diagnosis for this admission?: YesPlan: Culture grew VRE. Antibiotics changed to Daptomycin (4) Hyponatremia Is this a current diagnosis for this admission?: YesPlan: Secondary to heart failure (5) Hyperkalemia Is this a current diagnosis for this admission?: YesPlan: Resolved (6) Do not intubate but use all other measures Is this a current diagnosis for this admission?: YesPlan: Patient and family made decision (7) BPH (benign prostatic hyperplasia) Qualifiers: Prostatic enlargement morphology: unspecified morphology Lower urinary tract symptom presence: presence of symptoms unspecified Qualified Code(s ): N40.0 - Benign prostatic hyperplasia without lower urinary tract symptoms Is this a current diagnosis for this admission?: YesPlan: Continue flomax (8) Anxiety Is this a current diagnosis for this admission?: Yes (9) Coronary artery disease Qualifiers: Coronary Disease-Associated Artery/Lesion type: [place] artery [place] vs. transplanted heart: [place] heart Associated angina: angina presence unspecified Qualified Code(s): I25.10 - Atherosclerotic heart disease of [place] coronary artery without angina pectoris Plan: Continue current meds - Time Time Spent with patient: 25-34 minutes Critical Time spent with patient: 15-24 minutes Medications reviewed and adjusted accordingly: Yes Anticipated discharge: Home with Homehealth - Inpatient Certification Based on my medical assessment, after consideration of the patient's comorbidities, presenting symptoms, or acuity I expect that the services needed warrant INPATIENT care.: Yes
[2016-07-15] MEDS: DAPTOMYCIN 500 MG in NORMAL SALINE 50 ML IV SCH (11:25)
[2016-07-15] MEDS: TAMSULOSIN HCL 0.4 MG CAP.SR.24H PO SCH (17:30)
[2016-07-15] MEDS: POTASSIUM CHLORIDE 10 MEQ TABLET.SA PO SCH (21:22)
[2016-07-16 06:00] LABS: ABSOLUTE BASOPHILS # (AUTO) 0.1 10^3/uL (0.0-0.2); ABSOLUTE EOSINOPHILS # (AUTO) 0.2 10^3/uL (0.0-0.6); ABSOLUTE LYMPHOCYTES (AUTO) 2.4 10^3/uL (0.5-4.7); ABSOLUTE MONOCYTES (AUTO) 1.6 10^3/uL (0.1-1.4); ABSOLUTE NEUT (AUTO) 8.1 10^3/uL (1.7-8.2); EOSINOPHILS % (AUTO) 1.4 % (0-6); HEMATOCRIT 35.6 % (37.9-51.0); HEMOGLOBIN 11.7 g/dL (13.5-17.0); HGB HCT DIFFERENCE -0.5; LYMPHOCYTES % (AUTO) 19.1 % (13-45); MEAN CORPUSCULAR HEMOGLOBIN 29.4 pg (27.0-33.4); MEAN CORPUSCULAR HGB CONC 32.8 g/dL (32.0-36.0); MEAN CORPUSCULAR VOLUME 90 fl (80-97); MONOCYTES % (AUTO) 13.3 % (3-13); RED BLOOD COUNT 3.97 10^6/uL (4.35-5.55); RED CELL DISTRIBUTION WIDTH 16.4 % (11.5-14.0); SEGMENTED NEUTROPHILS % (AUTO) 65.2 % (42-78); WHITE BLOOD COUNT 12.4 10^3/uL (4.0-10.5)
[2016-07-16 06:06] LABS: ANION GAP 10 (5-19); BLOOD UREA NITROGEN 16 mg/dL (7-20); CALCIUM 8.6 mg/dL (8.4-10.2); CARBON DIOXIDE 31 mmol/L (22-30); CHLORIDE 91 mmol/L (98-107); GLUCOSE 82 mg/dL (75-110); POTASSIUM 3.5 mmol/L (3.6-5.0); SODIUM 131.7 mmol/L (137-145)
[2016-07-16] MEDS: HYDROCORTISONE 10 MG TABLET PO SCH ×2 (09:27→17:50)
[2016-07-16] MEDS: LACTOBACILLUS ACIDOPHILUS 250 MG TAB PO SCH ×2 (09:27→17:50)
[2016-07-16] MEDS: MAGNESIUM OXIDE 400 MG TABLET PO SCH ×2 (09:28→17:50)
[2016-07-16] MEDS: MIDODRINE HCL 5 MG TABLET PO SCH ×3 (09:28→16:09)
[2016-07-16] MEDS: FERROUS SULFATE 325 MG TABLET PO SCH (09:29)
[2016-07-16] MEDS: ASPIRIN 81 MG TABLET, ENT COATED PO SCH (09:29)
[2016-07-16] MEDS: APIXABAN 5 MG TABLET PO SCH ×2 (09:29→17:51)
[2016-07-16] MEDS: POTASSIUM CHLORIDE 10 MEQ TABLET.SA PO SCH (09:29)
[2016-07-16] MEDS: DOCUSATE SODIUM 100 MG CAPSULE PO SCH ×2 (09:29→17:50)
[2016-07-16] MEDS: TORSEMIDE 20 MG TABLET PO SCH (09:29)
[2016-07-16] MEDS: DIGOXIN 0.125 MG TABLET PO SCH (09:30)
[2016-07-16] MEDS: BUDESONIDE/FORMOTEROL 80-4.5 MCG 60 PUFF/6.9 GM MDI IH SCH ×2 (09:30→22:29)
[2016-07-16] MEDS: DAPTOMYCIN 500 MG in NORMAL SALINE 50 ML IV SCH (10:25)
[2016-07-16] MEDS: TAMSULOSIN HCL 0.4 MG CAP.SR.24H PO SCH (17:50)
[2016-07-17] MEDS ORDERED: NORMAL SALINE 1000 ML 1,000 ML IV ONE (01:00)
[2016-07-17] MEDS: MIDODRINE HCL 5 MG TABLET PO SCH ×3 (09:33→17:40)
[2016-07-17] MEDS: MAGNESIUM OXIDE 400 MG TABLET PO SCH ×2 (09:34→17:39)
[2016-07-17] MEDS: FERROUS SULFATE 325 MG TABLET PO SCH (09:34)
[2016-07-17] MEDS: LACTOBACILLUS ACIDOPHILUS 250 MG TAB PO SCH ×2 (09:34→17:39)
[2016-07-17] MEDS: TORSEMIDE 20 MG TABLET PO SCH (09:34)
[2016-07-17] MEDS: ASPIRIN 81 MG TABLET, ENT COATED PO SCH (09:34)
[2016-07-17] MEDS: DOCUSATE SODIUM 100 MG CAPSULE PO SCH ×2 (09:34→17:39)
[2016-07-17] MEDS: DIGOXIN 0.125 MG TABLET PO SCH (09:34)
[2016-07-17] MEDS: POTASSIUM CHLORIDE 10 MEQ TABLET.SA PO SCH (09:35)
[2016-07-17] MEDS: DAPTOMYCIN 500 MG in NORMAL SALINE 50 ML IV SCH (09:35)
[2016-07-17] MEDS: BUDESONIDE/FORMOTEROL 80-4.5 MCG 60 PUFF/6.9 GM MDI IH SCH ×2 (09:35→21:39)
[2016-07-17] MEDS: HYDROCORTISONE 10 MG TABLET PO SCH ×2 (09:35→17:39)
[2016-07-17] MEDS: APIXABAN 5 MG TABLET PO SCH ×2 (09:35→17:39)
[2016-07-17] MEDS: ACETAMINOPHEN 325 MG TABLET PO PRN ×2 (09:44→18:12)
[2016-07-17] MEDS: LIDOCAINE 5% (700 MG) TRANSDERMAL ADH..PATCH TP SCH (11:24)
--- NOTE | 2016-07-17 13:57 | PDOC PROGRESS REPORT ---
Subjective Progress Note for:: 07/16/16 Subjective:: Patient seen on morning rounds. He denies any shortness of breath, dyspnea or cough. He denies any nausea, vomiting or abdominal pain. He denies any significant arthralgias or myalgias. He has not had confusion at night since stopping his seroquel. Rest of the review of systems is negative. Physical Exam Vital Signs: Temp Pulse Resp BP Pulse Ox 98.0 F 70 16 95/55 L 100 07/17/16 11:26 07/17/16 11:26 07/17/16 11:26 07/17/16 11:26 07/17/16 11:26 Intake & Output 07/16/16 07/17/16 07/18/16 06:59 06:59 06:59 Intake Total 584 250 Output Total 820 632 Balance -236 -382 General appearance: PRESENT: no acute distress, well-developed, well-nourished Head exam: PRESENT: atraumatic, normocephalic Eye exam: PRESENT: conjunctiva pale Ear exam: PRESENT: normal external ear exam Mouth exam: PRESENT: moist, tongue midline Neck exam: ABSENT: carotid bruit, JVD, lymphadenopathy, thyromegaly Respiratory exam: PRESENT: clear to auscultation nic. ABSENT: rales, rhonchi, wheezes Cardiovascular exam: PRESENT: RRR. ABSENT: diastolic murmur, rubs, systolic murmur Vascular exam: PRESENT: normal capillary refill GI/Abdominal exam: PRESENT: normal bowel sounds, soft. ABSENT: distended, guarding, mass, organolmegaly, rebound, tenderness Rectal exam: PRESENT: deferred Extremities exam: PRESENT: full ROM. ABSENT: calf tenderness, clubbing, pedal edema Neurological exam: PRESENT: alert, awake, oriented to person, oriented to place , oriented to time, oriented to situation, CN II-XII grossly intact. ABSENT: motor sensory deficit Psychiatric exam: PRESENT: appropriate affect, normal mood. ABSENT: homicidal ideation, suicidal ideation Skin exam: PRESENT: dry, intact, warm. ABSENT: cyanosis, rash Results Laboratory Results: 07/16/16 05:13 07/16/16 05:13 07/13/16 17:50 Blood Blood Culture - Final Mrsa (Meth Resis Staph Aureus) 07/09/16 04:58 Troponin I 0.025 Impressions: Chest X-Ray 07/10/16 07:35 IMPRESSION: NO ACUTE RADIOGRAPHIC FINDING IN THE CHEST. Assessment & Plan - Diagnosis (1) Bacteremia Is this a current diagnosis for this admission?: YesPlan: Repeat cultures are negative (2) Hypotension Qualifiers: Hypotension type: unspecified hypotension type Qualified Code(s): I95.9 - Hypotension, unspecified Is this a current diagnosis for this admission?: YesPlan: Secondary to sepsis and dehydration. Now resolved to baseline with IV hydration and antibiotics. Continue midodrine (3) Urinary tract infection associated with indwelling urethral catheter Qualifiers: Encounter type: initial encounter Qualified Code(s): T83.511A - Infection and inflammatory reaction due to indwelling urethral catheter, initial encounter; N39.0 - Urinary tract infection, site not specified Is this a current diagnosis for this admission?: YesPlan: Culture grew VRE. Antibiotics changed to Daptomycin (4) Hyponatremia Is this a current diagnosis for this admission?: YesPlan: Secondary to heart failure (5) Hyperkalemia Is this a current diagnosis for this admission?: YesPlan: Resolved (6) Do not intubate but use all other measures Is this a current diagnosis for this admission?: YesPlan: Patient and family made decision (7) BPH (benign prostatic hyperplasia) Qualifiers: Prostatic enlargement morphology: unspecified morphology Lower urinary tract symptom presence: presence of symptoms unspecified Qualified Code(s ): N40.0 - Benign prostatic hyperplasia without lower urinary tract symptoms Is this a current diagnosis for this admission?: YesPlan: Continue flomax (8) Anxiety Is this a current diagnosis for this admission?: Yes (9) Coronary artery disease Qualifiers: Coronary Disease-Associated Artery/Lesion type: [place] artery [place] vs. transplanted heart: [place] heart Associated angina: angina presence unspecified Qualified Code(s): I25.10 - Atherosclerotic heart disease of [place] coronary artery without angina pectoris Plan: Continue current meds - Time Time Spent with patient: 25-34 minutes Critical Time spent with patient: 15-24 minutes Medications reviewed and adjusted accordingly: Yes Anticipated discharge: SNF
--- NOTE | 2016-07-17 13:59 | PDOC PROGRESS REPORT ---
Subjective Progress Note for:: 07/17/16 Subjective:: Patient seen on morning rounds. He denies any shortness of breath, dyspnea or cough. He denies any nausea, vomiting or abdominal pain. He denies any significant arthralgias or myalgias. He has not had confusion at night since stopping his seroquel. Rest of the review of systems is negative. Physical Exam Vital Signs: Temp Pulse Resp BP Pulse Ox 98.0 F 70 16 95/55 L 100 07/17/16 11:26 07/17/16 11:26 07/17/16 11:26 07/17/16 11:26 07/17/16 11:26 Intake & Output 07/16/16 07/17/16 07/18/16 06:59 06:59 06:59 Intake Total 584 250 Output Total 820 632 Balance -236 -382 General appearance: PRESENT: no acute distress, thin, well-developed Head exam: PRESENT: atraumatic, normocephalic Eye exam: PRESENT: conjunctiva pink, EOMI, PERRLA. ABSENT: scleral icterus Ear exam: PRESENT: normal external ear exam Mouth exam: PRESENT: moist, tongue midline Neck exam: ABSENT: carotid bruit, JVD, lymphadenopathy, thyromegaly Respiratory exam: PRESENT: clear to auscultation nic. ABSENT: rales, rhonchi, wheezes Cardiovascular exam: PRESENT: RRR. ABSENT: diastolic murmur, rubs, systolic murmur Pulses: PRESENT: normal dorsalis pedis pul Vascular exam: PRESENT: normal capillary refill GI/Abdominal exam: PRESENT: normal bowel sounds, soft. ABSENT: distended, guarding, mass, organolmegaly, rebound, tenderness Rectal exam: PRESENT: deferred Extremities exam: PRESENT: full ROM. ABSENT: calf tenderness, clubbing, pedal edema Musculoskeletal exam: PRESENT: tenderness - right anterior knee Neurological exam: PRESENT: alert, awake, oriented to person, oriented to place , oriented to time, oriented to situation, CN II-XII grossly intact. ABSENT: motor sensory deficit Psychiatric exam: PRESENT: appropriate affect, normal mood. ABSENT: homicidal ideation, suicidal ideation Skin exam: PRESENT: skin tears - multiple forearms Results Laboratory Results: 07/16/16 05:13 07/16/16 05:13 07/13/16 17:50 Blood Blood Culture - Final Mrsa (Meth Resis Staph Aureus) 07/09/16 04:58 Troponin I 0.025 Impressions: Chest X-Ray 07/10/16 07:35 IMPRESSION: NO ACUTE RADIOGRAPHIC FINDING IN THE CHEST. Assessment & Plan - Diagnosis (1) Bacteremia Is this a current diagnosis for this admission?: YesPlan: Repeat cultures are negative (2) Hypotension Qualifiers: Hypotension type: unspecified hypotension type Qualified Code(s): I95.9 - Hypotension, unspecified Is this a current diagnosis for this admission?: YesPlan: Secondary to sepsis and dehydration. Now resolved to baseline with IV hydration and antibiotics. Continue midodrine (3) Urinary tract infection associated with indwelling urethral catheter Qualifiers: Encounter type: initial encounter Qualified Code(s): T83.511A - Infection and inflammatory reaction due to indwelling urethral catheter, initial encounter; N39.0 - Urinary tract infection, site not specified Is this a current diagnosis for this admission?: YesPlan: Culture grew VRE. Antibiotics changed to Daptomycin (4) Hyponatremia Is this a current diagnosis for this admission?: YesPlan: Secondary to heart failure (5) Hyperkalemia Is this a current diagnosis for this admission?: YesPlan: Resolved (6) Do not intubate but use all other measures Is this a current diagnosis for this admission?: YesPlan: Patient and family made decision (7) BPH (benign prostatic hyperplasia) Qualifiers: Prostatic enlargement morphology: unspecified morphology Lower urinary tract symptom presence: presence of symptoms unspecified Qualified Code(s ): N40.0 - Benign prostatic hyperplasia without lower urinary tract symptoms Is this a current diagnosis for this admission?: YesPlan: Continue flomax (8) Anxiety Is this a current diagnosis for this admission?: Yes (9) Coronary artery disease Qualifiers: Coronary Disease-Associated Artery/Lesion type: [place] artery [place] vs. transplanted heart: [place] heart Associated angina: angina presence unspecified Qualified Code(s): I25.10 - Atherosclerotic heart disease of [place] coronary artery without angina pectoris Plan: Continue current meds - Time Time Spent with patient: 25-34 minutes Medications reviewed and adjusted accordingly: Yes Anticipated discharge: Home
[2016-07-17] MEDS: TAMSULOSIN HCL 0.4 MG CAP.SR.24H PO SCH (17:39)
--- NOTE | 2016-07-17 18:09 | XCELERA REPORT ---
[address] [address] Transthoracic Echocardiogram Report Name: TUTU MURRAY Age: 75 yrs Gender: Male : 1940 Patient Status: Inpatient Patient Location: 5\[id number]\527\[id number] Study Date: 07/17/2016 02:19 PM Height: 72 in Weight: 157 lb BSA: 1.9 m2 Procedure: A complete two-dimensional transthoracic echocardiogram was performed (2D, M-mode, spectral and color flow Doppler). The study was technically adequate with some images being suboptimal in quality. Reason For Study: MRSA bacteremia with ICD pacemaker Ordering Physician: KATHRYN SARGENT Performed By: Mariposa Rouse Interpretation Summary The Ejection Fraction estimate is <20% Left ventricular systolic function is severely reduced. Doppler measurements suggest pseudonormalized left ventricular relaxation, which is associated with grade II/IV or mild to moderate diastolic dysfunction There is borderline concentric left ventricular hypertrophy. The left ventricle is severely dilated. There is severe global hypokinesis of the left ventricle. The right ventricle is moderately dilated. The right ventricular systolic function is moderately reduced. The right atrium is moderately dilated. The left atrium is moderately dilated. There is a mild to moderate amount of mitral regurgitation There is no mitral valve stenosis. There is no aortic valve stenosis There is a trace amount of aortic regurgitation There is a trace to mild amount of tricuspid regurgitation There is mild pulmonary hypertension by echo Right ventricular systolic pressure is estimated to be elevated at 30- 40mmHg. The aortic root is not well visualized but is probably normal size. The inferior vena cava appeared normal and decreased > 50% with respiration (RAP 5-10 mmHg) There is no pericardial effusion. Pacemaker wire noted. No definite vegetations noted but if clinical suspicion is high, then consider AMELIE and multiple blood cultures. MMode/2D Measurements \T\ Calculations RVDd: 4.4 cm LVIDd: 7.0 cm FS: 7.3 % Ao root diam: 2.6 cm IVSd: 0.99 cm LVIDs: 6.5 cm EDV(Teich): 258.2 ml LVPWd: 0.97 cm ESV(Teich): 217.3 ml Ao root area: 5.4 cm2 EF(Teich): 15.8 % LA dimension: 5.0 cm Doppler Measurements \T\ Calculations MV E max umm: MV P1/2t max umm: PA V2 max: PI end-d umm: 65.6 cm/sec 65.2 cm/sec 107.6 cm/sec 133.0 cm/sec MV A max umm: MV P1/2t: 68.9 msec PA max P.5 cm/sec 4.6 mmHg MV E/A: 2.0 MVA(P1/2t): 3.2 cm2 MV dec slope: 277.2 cm/sec2 MV dec time: 0.23 sec TR max umm: 268.8 cm/sec TR max P.9 mmHg Left Ventricle The left ventricle is severely dilated. There is borderline concentric left ventricular hypertrophy. Left ventricular systolic function is severely reduced. The Ejection Fraction estimate is <20%. Doppler measurements suggest pseudonormalized left ventricular relaxation, which is associated with grade II/IV or mild to moderate diastolic dysfunction. There is severe global hypokinesis of the left ventricle. Right Ventricle The right ventricle is moderately dilated. There is normal right ventricular wall thickness. The right ventricular systolic function is moderately reduced. Atria The right atrium is moderately dilated. The left atrium is moderately dilated. Interarterial septum not well visualized and not well dopplered. Cannot comment on ASD/PFO presence. Mitral Valve The mitral valve is grossly normal. There is no mitral valve stenosis. There is a mild to moderate amount of mitral regurgitation. Aortic Valve The aortic valve is grossly normal. There is no aortic valve stenosis. There is a trace amount of aortic regurgitation. Tricuspid Valve The tricuspid valve is not well visualized, but is grossly normal. There is no tricuspid stenosis. There is a trace to mild amount of tricuspid regurgitation. There is mild pulmonary hypertension by echo. Right ventricular systolic pressure is estimated to be elevated at 30-40mmHg. Pulmonic Valve The pulmonic valve is not well visualized. Great Vessels The aortic root is not well visualized but is probably normal size. The inferior vena cava appeared normal and decreased > 50% with respiration (RAP 5-10 mmHg). Effusions There is no pericardial effusion. Incidental Findings Pacemaker wire noted. No definite vegetations noted but if clinical suspicion is high, then consider AMELIE and multiple blood cultures. : KATHRYN SARGENT > Anabella Mueller
[2016-07-17] MEDS: GABAPENTIN 300 MG CAPSULE PO PRN (18:12)
[2016-07-18] MEDS: LACTOBACILLUS ACIDOPHILUS 250 MG TAB PO SCH ×2 (09:36→17:12)
[2016-07-18] MEDS: DOCUSATE SODIUM 100 MG CAPSULE PO SCH ×2 (09:36→17:13)
[2016-07-18] MEDS: HYDROCORTISONE 10 MG TABLET PO SCH ×2 (09:36→17:12)
[2016-07-18] MEDS: MIDODRINE HCL 5 MG TABLET PO SCH ×3 (09:36→17:12)
[2016-07-18] MEDS: DIGOXIN 0.125 MG TABLET PO SCH (09:36)
[2016-07-18] MEDS: POTASSIUM CHLORIDE 10 MEQ TABLET.SA PO SCH (09:37)
[2016-07-18] MEDS: TORSEMIDE 20 MG TABLET PO SCH (09:37)
[2016-07-18] MEDS: APIXABAN 5 MG TABLET PO SCH ×2 (09:37→17:12)
[2016-07-18] MEDS: MAGNESIUM OXIDE 400 MG TABLET PO SCH ×2 (09:37→17:13)
[2016-07-18] MEDS: FERROUS SULFATE 325 MG TABLET PO SCH (09:37)
[2016-07-18] MEDS: ASPIRIN 81 MG TABLET, ENT COATED PO SCH (09:37)
[2016-07-18] MEDS: BUDESONIDE/FORMOTEROL 80-4.5 MCG 60 PUFF/6.9 GM MDI IH SCH ×2 (09:46→22:06)
[2016-07-18] MEDS: DAPTOMYCIN 500 MG in NORMAL SALINE 50 ML IV SCH (09:50)
[2016-07-18] MEDS: LIDOCAINE 5% (700 MG) TRANSDERMAL ADH..PATCH TP SCH (12:15)
--- NOTE | 2016-07-18 13:14 | PDOC PROGRESS REPORT ---
Subjective Progress Note for:: 07/18/16 Subjective:: Patient seen on morning rounds. He denies any shortness of breath, dyspnea or cough. He denies any nausea, vomiting or abdominal pain. He denies any significant arthralgias or myalgias. He has not had confusion at night since stopping his seroquel. Rest of the review of systems is negative. Physical Exam Vital Signs: Temp Pulse Resp BP Pulse Ox 97.5 F 76 18 96/67 L 100 07/18/16 07:21 07/18/16 11:09 07/18/16 11:09 07/18/16 11:09 07/18/16 11:09 Intake & Output 07/17/16 07/18/16 07/19/16 06:59 06:59 06:59 Intake Total 250 280 Output Total 632 300 Balance -382 -20 General appearance: PRESENT: no acute distress, thin, well-developed Head exam: PRESENT: atraumatic, normocephalic Eye exam: PRESENT: conjunctiva pale, EOMI, PERRLA. ABSENT: scleral icterus Ear exam: PRESENT: normal external ear exam Mouth exam: PRESENT: moist, tongue midline Neck exam: ABSENT: carotid bruit, JVD, lymphadenopathy, thyromegaly Respiratory exam: PRESENT: clear to auscultation nic. ABSENT: rales, rhonchi, wheezes Cardiovascular exam: PRESENT: RRR. ABSENT: diastolic murmur, rubs, systolic murmur Pulses: PRESENT: normal dorsalis pedis pul Vascular exam: PRESENT: normal capillary refill GI/Abdominal exam: PRESENT: normal bowel sounds, soft. ABSENT: distended, guarding, mass, organolmegaly, rebound, tenderness Rectal exam: PRESENT: deferred Extremities exam: PRESENT: full ROM. ABSENT: calf tenderness, clubbing, pedal edema Neurological exam: PRESENT: alert, awake, oriented to person, oriented to place , oriented to time, oriented to situation, CN II-XII grossly intact. ABSENT: motor sensory deficit Psychiatric exam: PRESENT: appropriate affect, normal mood. ABSENT: homicidal ideation, suicidal ideation Skin exam: PRESENT: dry, intact, warm. ABSENT: cyanosis, rash Results Laboratory Results: 07/16/16 05:13 07/16/16 05:13 07/09/16 04:58 Troponin I 0.025 Impressions: Chest X-Ray 07/10/16 07:35 IMPRESSION: NO ACUTE RADIOGRAPHIC FINDING IN THE CHEST. Assessment & Plan - Diagnosis (1) Bacteremia Is this a current diagnosis for this admission?: YesPlan: Repeat cultures are negative (2) Hypotension Qualifiers: Hypotension type: unspecified hypotension type Qualified Code(s): I95.9 - Hypotension, unspecified Is this a current diagnosis for this admission?: YesPlan: Secondary to sepsis and dehydration. Now resolved to baseline with IV hydration and antibiotics. Continue midodrine (3) Urinary tract infection associated with indwelling urethral catheter Qualifiers: Encounter type: initial encounter Qualified Code(s): T83.511A - Infection and inflammatory reaction due to indwelling urethral catheter, initial encounter; N39.0 - Urinary tract infection, site not specified Is this a current diagnosis for this admission?: YesPlan: Culture grew VRE. Antibiotics changed to Daptomycin (4) Hyponatremia Is this a current diagnosis for this admission?: YesPlan: Secondary to heart failure (5) Hyperkalemia Is this a current diagnosis for this admission?: YesPlan: Resolved (6) Do not intubate but use all other measures Is this a current diagnosis for this admission?: YesPlan: Patient and family made decision (7) BPH (benign prostatic hyperplasia) Qualifiers: Prostatic enlargement morphology: unspecified morphology Lower urinary tract symptom presence: presence of symptoms unspecified Qualified Code(s ): N40.0 - Benign prostatic hyperplasia without lower urinary tract symptoms Is this a current diagnosis for this admission?: YesPlan: Continue flomax (8) Anxiety Is this a current diagnosis for this admission?: Yes (9) Coronary artery disease Qualifiers: Coronary Disease-Associated Artery/Lesion type: [place] artery [place] vs. transplanted heart: [place] heart Associated angina: angina presence unspecified Qualified Code(s): I25.10 - Atherosclerotic heart disease of [place] coronary artery without angina pectoris Plan: Continue current meds - Time Time Spent with patient: 25-34 minutes Critical Time spent with patient: 15-24 minutes Medications reviewed and adjusted accordingly: Yes Anticipated discharge: SNF
[2016-07-18] MEDS: TAMSULOSIN HCL 0.4 MG CAP.SR.24H PO SCH (17:12)
[2016-07-19] MEDS: MIDODRINE HCL 5 MG TABLET PO SCH ×3 (07:49→15:50)
[2016-07-19] MEDS: MAGNESIUM OXIDE 400 MG TABLET PO SCH ×2 (09:17→17:16)
[2016-07-19] MEDS: POTASSIUM CHLORIDE 10 MEQ TABLET.SA PO SCH (09:17)
[2016-07-19] MEDS: DIGOXIN 0.125 MG TABLET PO SCH (09:17)
[2016-07-19] MEDS: DOCUSATE SODIUM 100 MG CAPSULE PO SCH ×2 (09:18→17:16)
[2016-07-19] MEDS: ASPIRIN 81 MG TABLET, ENT COATED PO SCH (09:18)
[2016-07-19] MEDS: FERROUS SULFATE 325 MG TABLET PO SCH (09:18)
[2016-07-19] MEDS: APIXABAN 5 MG TABLET PO SCH ×2 (09:18→17:16)
[2016-07-19] MEDS: BUDESONIDE/FORMOTEROL 80-4.5 MCG 60 PUFF/6.9 GM MDI IH SCH ×2 (09:20→21:26)
[2016-07-19] MEDS: HYDROCORTISONE 10 MG TABLET PO SCH ×2 (09:22→17:17)
[2016-07-19] MEDS: TORSEMIDE 20 MG TABLET PO SCH (09:31)
[2016-07-19] MEDS ORDERED: LIDOCAINE 5% (700 MG) TRANSDERMAL ADH..PATCH TP SCH (10:00)
--- NOTE | 2016-07-19 13:41 | PDOC PROGRESS REPORT ---
Subjective Progress Note for:: 07/19/16 Subjective:: Patient seen on morning rounds. He denies any shortness of breath, dyspnea or cough. He denies any nausea, vomiting or abdominal pain. He denies has chronic pain in the right knee. He denies any other complaints at the present time, Rest of the review of systems is negative. Physical Exam Vital Signs: Temp Pulse Resp BP Pulse Ox 97.8 F 70 16 87/43 L 100 07/19/16 11:02 07/19/16 11:02 07/19/16 11:02 07/19/16 11:02 07/19/16 11:02 Intake & Output 07/18/16 07/19/16 07/20/16 06:59 06:59 06:59 Intake Total 280 3564 Output Total 300 2300 Balance -20 1264 General appearance: PRESENT: no acute distress, thin, well-developed Head exam: PRESENT: atraumatic, normocephalic Eye exam: PRESENT: conjunctiva pale Ear exam: PRESENT: normal external ear exam Mouth exam: PRESENT: moist, tongue midline Neck exam: ABSENT: carotid bruit, JVD, lymphadenopathy, thyromegaly Respiratory exam: PRESENT: clear to auscultation nic. ABSENT: rales, rhonchi, wheezes Cardiovascular exam: PRESENT: RRR. ABSENT: diastolic murmur, rubs, systolic murmur Pulses: PRESENT: normal dorsalis pedis pul GI/Abdominal exam: PRESENT: normal bowel sounds, soft. ABSENT: distended, guarding, mass, organolmegaly, rebound, tenderness Rectal exam: PRESENT: deferred Extremities exam: PRESENT: full ROM. ABSENT: calf tenderness, clubbing, pedal edema Musculoskeletal exam: PRESENT: ambulatory, full ROM, normal inspection Neurological exam: PRESENT: alert, awake, oriented to person, oriented to place , oriented to time, oriented to situation, CN II-XII grossly intact. ABSENT: motor sensory deficit Psychiatric exam: PRESENT: appropriate affect, normal mood. ABSENT: homicidal ideation, suicidal ideation Skin exam: PRESENT: dry, skin tears, warm. ABSENT: cyanosis, rash Results Laboratory Results: 07/16/16 05:13 07/16/16 05:13 07/13/16 14:27 Blood Blood Culture - Final NO GROWTH IN 5 DAYS 07/09/16 04:58 Troponin I 0.025 Impressions: Chest X-Ray 07/10/16 07:35 IMPRESSION: NO ACUTE RADIOGRAPHIC FINDING IN THE CHEST. Assessment & Plan - Diagnosis (1) Bacteremia Is this a current diagnosis for this admission?: YesPlan: Repeat cultures are negative at 48 hrs. Will have PICC line placed Wednesday for IV antibiotics (2) Hypotension Qualifiers: Hypotension type: unspecified hypotension type Qualified Code(s): I95.9 - Hypotension, unspecified Is this a current diagnosis for this admission?: Yes (3) Urinary tract infection associated with indwelling urethral catheter Qualifiers: Encounter type: initial encounter Qualified Code(s): T83.511A - Infection and inflammatory reaction due to indwelling urethral catheter, initial encounter; N39.0 - Urinary tract infection, site not specified Is this a current diagnosis for this admission?: YesPlan: Culture grew VRE. Antibiotics changed to Daptomycin (4) Hyponatremia Is this a current diagnosis for this admission?: YesPlan: Secondary to heart failure (5) Hyperkalemia Is this a current diagnosis for this admission?: YesPlan: Resolved (6) Do not intubate but use all other measures Is this a current diagnosis for this admission?: YesPlan: Patient and family made decision (7) BPH (benign prostatic hyperplasia) Qualifiers: Prostatic enlargement morphology: unspecified morphology Lower urinary tract symptom presence: presence of symptoms unspecified Qualified Code(s ): N40.0 - Benign prostatic hyperplasia without lower urinary tract symptoms Is this a current diagnosis for this admission?: YesPlan: Continue flomax (8) Anxiety Is this a current diagnosis for this admission?: Yes (9) Coronary artery disease Qualifiers: Coronary Disease-Associated Artery/Lesion type: [place] artery [place] vs. transplanted heart: [place] heart Associated angina: angina presence unspecified Qualified Code(s): I25.10 - Atherosclerotic heart disease of [place] coronary artery without angina pectoris Plan: Continue current meds - Time Time Spent with patient: 25-34 minutes Critical Time spent with patient: 15-24 minutes Medications reviewed and adjusted accordingly: Yes
[2016-07-19] MEDS: TAMSULOSIN HCL 0.4 MG CAP.SR.24H PO SCH (17:16)
[2016-07-20] MEDS: ACETAMINOPHEN 325 MG TABLET PO PRN ×2 (07:11→17:20)
[2016-07-20] MEDS: MIDODRINE HCL 5 MG TABLET PO SCH ×3 (07:12→16:10)
[2016-07-20] MEDS ORDERED: LIDOCAINE 5% (700 MG) TRANSDERMAL ADH..PATCH TP SCH (08:00)
[2016-07-20] MEDS: DIGOXIN 0.125 MG TABLET PO SCH (09:24)
[2016-07-20] MEDS: DOCUSATE SODIUM 100 MG CAPSULE PO SCH ×2 (09:24→17:15)
[2016-07-20] MEDS: TORSEMIDE 20 MG TABLET PO SCH (09:24)
[2016-07-20] MEDS: ASPIRIN 81 MG TABLET, ENT COATED PO SCH (09:24)
[2016-07-20] MEDS: MAGNESIUM OXIDE 400 MG TABLET PO SCH ×2 (09:24→17:16)
[2016-07-20] MEDS: FERROUS SULFATE 325 MG TABLET PO SCH (09:24)
[2016-07-20] MEDS: POTASSIUM CHLORIDE 10 MEQ TABLET.SA PO SCH (09:25)
[2016-07-20] MEDS: APIXABAN 5 MG TABLET PO SCH ×2 (09:25→17:16)
[2016-07-20] MEDS: BUDESONIDE/FORMOTEROL 80-4.5 MCG 60 PUFF/6.9 GM MDI IH SCH ×2 (09:26→22:05)
[2016-07-20] MEDS: HYDROCORTISONE 10 MG TABLET PO SCH ×2 (09:26→17:18)
--- NOTE | 2016-07-20 10:45 | PDOC PROGRESS REPORT ---
Subjective Progress Note for:: 07/20/16 Subjective:: Patient seen on morning rounds. He denies any shortness of breath, dyspnea or cough. He denies any nausea, vomiting or abdominal pain. He denies has chronic pain in the right knee. He denies any other complaints at the present time, Rest of the review of systems is negative. Physical Exam Vital Signs: Temp Pulse Resp BP Pulse Ox 97.2 F 69 17 92/58 L 100 07/20/16 07:39 07/20/16 07:39 07/20/16 07:39 07/20/16 07:39 07/20/16 07:39 Intake & Output 07/19/16 07/20/16 07/21/16 06:59 06:59 06:59 Intake Total 3564 3420 Output Total 2300 2800 Balance 1264 620 General appearance: PRESENT: no acute distress, thin, well-developed Head exam: PRESENT: atraumatic, normocephalic Eye exam: PRESENT: conjunctiva pink, EOMI, PERRLA. ABSENT: scleral icterus Ear exam: PRESENT: normal external ear exam Mouth exam: PRESENT: moist, tongue midline Neck exam: ABSENT: carotid bruit, JVD, lymphadenopathy, thyromegaly Respiratory exam: PRESENT: clear to auscultation nic. ABSENT: rales, rhonchi, wheezes Cardiovascular exam: PRESENT: RRR. ABSENT: diastolic murmur, rubs, systolic murmur Pulses: PRESENT: normal carotid pulses, normal radial pulses Vascular exam: PRESENT: normal capillary refill GI/Abdominal exam: PRESENT: normal bowel sounds, soft. ABSENT: distended, guarding, mass, organolmegaly, rebound, tenderness Rectal exam: PRESENT: deferred Extremities exam: PRESENT: full ROM. ABSENT: calf tenderness, clubbing, pedal edema Musculoskeletal exam: PRESENT: ambulatory - right knee (Chronic), full ROM, tenderness Neurological exam: PRESENT: alert, awake, oriented to person, oriented to place , oriented to time, oriented to situation, CN II-XII grossly intact. ABSENT: motor sensory deficit Psychiatric exam: PRESENT: appropriate affect, normal mood. ABSENT: homicidal ideation, suicidal ideation Skin exam: PRESENT: dry, intact, warm. ABSENT: cyanosis, rash Results Laboratory Results: 07/16/16 05:13 07/16/16 05:13 07/09/16 04:58 Troponin I 0.025 Impressions: Chest X-Ray 07/10/16 07:35 IMPRESSION: NO ACUTE RADIOGRAPHIC FINDING IN THE CHEST. Assessment & Plan - Diagnosis (1) Bacteremia Is this a current diagnosis for this admission?: YesPlan: Repeat cultures are negative at 72 hrs. Will have PICC line placed Wednesday for IV antibiotics (2) Urinary tract infection associated with indwelling urethral catheter Qualifiers: Encounter type: initial encounter Qualified Code(s): T83.511A - Infection and inflammatory reaction due to indwelling urethral catheter, initial encounter; N39.0 - Urinary tract infection, site not specified Is this a current diagnosis for this admission?: YesPlan: Culture grew VRE. Antibiotics changed to Daptomycin (3) Hyponatremia Is this a current diagnosis for this admission?: YesPlan: Secondary to heart failure (4) Hyperkalemia Is this a current diagnosis for this admission?: YesPlan: Resolved (5) Do not intubate but use all other measures Is this a current diagnosis for this admission?: YesPlan: Patient and family made decision (6) BPH (benign prostatic hyperplasia) Qualifiers: Prostatic enlargement morphology: unspecified morphology Lower urinary tract symptom presence: presence of symptoms unspecified Qualified Code(s ): N40.0 - Benign prostatic hyperplasia without lower urinary tract symptoms Is this a current diagnosis for this admission?: YesPlan: Continue flomax (7) Anxiety Is this a current diagnosis for this admission?: Yes (8) Coronary artery disease Qualifiers: Coronary Disease-Associated Artery/Lesion type: [place] artery [place] vs. transplanted heart: [place] heart Associated angina: angina presence unspecified Qualified Code(s): I25.10 - Atherosclerotic heart disease of [place] coronary artery without angina pectoris (9) Hypotension Qualifiers: Hypotension type: unspecified hypotension type Qualified Code(s): I95.9 - Hypotension, unspecified Is this a current diagnosis for this admission?: YesPlan: Secondary to sepsis and dehydration. Now resolved to baseline with IV hydration and antibiotics. Continue midodrine - Time Time Spent with patient: 25-34 minutes Critical Time spent with patient: 15-24 minutes Medications reviewed and adjusted accordingly: Yes Anticipated discharge: Home with Homehealth
[2016-07-20] MEDS: LIDOCAINE 5% (700 MG) TRANSDERMAL ADH..PATCH TP SCH (11:42)
[2016-07-20] MEDS: DAPTOMYCIN 500 MG in NORMAL SALINE 50 ML IV SCH (13:35)
[2016-07-20] MEDS: TAMSULOSIN HCL 0.4 MG CAP.SR.24H PO SCH (17:18)
[2016-07-20] MEDS ORDERED: PHARMACY COMMUNICATION ORDER MC SCH (22:00)
[2016-07-21 06:40] LABS: ANION GAP 8 (5-19); BLOOD UREA NITROGEN 24 mg/dL (7-20); CALCIUM 8.7 mg/dL (8.4-10.2); CARBON DIOXIDE 34 mmol/L (22-30); CHLORIDE 94 mmol/L (98-107); CREATININE RESULT 0.59 mg/dL (0.52-1.25); GLUCOSE 108 mg/dL (75-110); POTASSIUM 3.7 mmol/L (3.6-5.0); SODIUM 136.4 mmol/L (137-145)
[2016-07-21 06:52] LABS: HEMATOCRIT 33.2 % (37.9-51.0); HEMOGLOBIN 10.9 g/dL (13.5-17.0); HGB HCT DIFFERENCE -0.5; MEAN CORPUSCULAR HGB CONC 32.8 g/dL (32.0-36.0); MEAN CORPUSCULAR VOLUME 92 fl (80-97); RED BLOOD COUNT 3.63 10^6/uL (4.35-5.55); RED CELL DISTRIBUTION WIDTH 16.2 % (11.5-14.0); WHITE BLOOD COUNT 15.8 10^3/uL (4.0-10.5)
[2016-07-21 07:04] LABS: BAND NEUTROPHILS % (MANUAL) 1 % (3-5); BASOPHILS % (MANUAL) 0 % (0-2); EOSINOPHILS % (MANUAL) 0 % (0-6); LYMPHOCYTES % (MANUAL) 24 % (13-45); TOTAL CELLS COUNTED 100
[2016-07-21 07:09] LABS: ANISOCYTOSIS 1+; OVALOCYTES SLIGHT; POIKILOCYTOSIS SLIGHT; SCHISTOCYTES SLIGHT; TOXIC GRANULATION SLIGHT; TOXIC VACUOLATION PRESENT
[2016-07-21] MEDS: MIDODRINE HCL 5 MG TABLET PO SCH ×3 (08:28→16:22)
[2016-07-21] MEDS: BUDESONIDE/FORMOTEROL 80-4.5 MCG 60 PUFF/6.9 GM MDI IH SCH (09:18)
[2016-07-21] MEDS: LIDOCAINE 5% (700 MG) TRANSDERMAL ADH..PATCH TP SCH (09:18)
[2016-07-21] MEDS: DIGOXIN 0.125 MG TABLET PO SCH (09:18)
[2016-07-21] MEDS: POTASSIUM CHLORIDE 10 MEQ TABLET.SA PO SCH (09:19)
[2016-07-21] MEDS: DOCUSATE SODIUM 100 MG CAPSULE PO SCH ×2 (09:19→17:06)
[2016-07-21] MEDS: MAGNESIUM OXIDE 400 MG TABLET PO SCH ×2 (09:19→17:06)
[2016-07-21] MEDS: TORSEMIDE 20 MG TABLET PO SCH (09:19)
[2016-07-21] MEDS: HYDROCORTISONE 10 MG TABLET PO SCH ×2 (09:19→17:18)
[2016-07-21] MEDS: FERROUS SULFATE 325 MG TABLET PO SCH (09:20)
--- NOTE | 2016-07-21 11:05 | RADIOLOGY REPORT (SQ) ---
EXAM DESCRIPTION: PICC INSERTION; FLUORO/CV PLACEMENT; U/S GUIDE FOR VASCULAR ACCESS COMPLETED DATE/TIME: 07/21/2016 10:40 am REASON FOR STUDY: 2 weeks IV antibiotics; 2 WEEKS IV ABX; IV ACCESS COMPARISON: Chest film 07/10/2016 FLUOROSCOPY TIME: 18 seconds 1 ultrasound and 1 digital fluoro images saved to PACS. TECHNIQUE: Fluoroscopic and ultrasound guided PICC placement. LIMITATIONS: None. PROCEDURE: After written consent and assessment were obtained, the patient was brought into the fluo roscopy room and place supine on the table. Ultrasound was used on the patient's right arm for PICC access. The right arm was prepped and draped in a sterile fashion along with the ultrasound probe. Th e entry site was anesthetized with 4.5 mL of 1% lidocaine. A 21 gauge 7 cm needle was advanced throug h the skin and into the right basilic vein under live ultrasound guidance. An ultrasound image was s aved to PACS confirming access site. A .018 guide wire was then inserted through the needle and into the venous system. The needle was the removed and an 11 blade scalpel was used to make a 1cm skin in cision. A 5 fr peel-away sheath was advanced over the wire and into the venous system. A measurement was then made using the existing wire and live fluoroscopic guidance. The wire was then removed and the trimmed. The PICC was advanced through the peel-away sheath and into the venous system. The peel- away sheath was removed and the catheter was adhered to the patients arm with a stat lock. The cathet er was then aspirated and flushed and a sterile bandage was placed over the access site. A fluorosco pic spot image was saved to PACS confirming the catheter tip within the superior vena cava. IMPRESSION: SUCCESSFUL PLACEMENT OF A 5 FR DUAL LUMEN 30 CM PICC IN THE right basilic VEIN. COMMENT: Patient medication list reviewed: Yes- Quality ID# [id number]:Eligible professional attests to doc umenting in the medical record they obtained, updated, or reviewed the patient's current medications. . Quality ID 145: Final reports for procedures using fluoroscopy that document radiation exposure ashley jean, or exposure time and number of fluorographic images (if radiation exposure indices are not avail able) Quality ID #76: The patient was prepped and draped using maximum sterile barrier technique including cap, mask, sterile gown, sterile gloves, a large sterile sheet, hand hygiene, and 2% Chlorhexidine fo r cutaneous antisepsis. When ultrasound is used, sterile ultrasound techniques are followed requiring sterile gel and sterile probes. TECHNICAL DOCUMENTATION: JOB ID: [id number] [employer]- All Rights Reserved
[2016-07-21] MEDS: ASPIRIN 81 MG TABLET, ENT COATED PO SCH (11:48)
[2016-07-21] MEDS: APIXABAN 5 MG TABLET PO SCH ×2 (11:49→17:06)
--- NOTE | 2016-07-21 12:00 | PDOC DISCHARGE SUMMARY ---
General - Admit/Disc Date/PCP Admission Date/Primary Care Provider: TRANSFER SUMMARY 07/09/16 04:06 JANET HENAO Receiving facility: [facility] Discharge Date: 07/21/16 - Discharge Diagnosis (1) Bacteremia Is this a current diagnosis for this admission?: Yes (2) Septic shock Is this a current diagnosis for this admission?: Yes (3) Urinary tract infection associated with indwelling urethral catheter Is this a current diagnosis for this admission?: Yes (4) Adrenal insufficiency Is this a current diagnosis for this admission?: Yes (5) Hypotension Is this a current diagnosis for this admission?: Yes (6) Hyponatremia Is this a current diagnosis for this admission?: Yes (7) Hyponatremia Is this a current diagnosis for this admission?: Yes (8) ARF (acute renal failure) Is this a current diagnosis for this admission?: Yes (9) Anemia of chronic disease Is this a current diagnosis for this admission?: Yes (10) Anxiety Is this a current diagnosis for this admission?: Yes (11) BPH (benign prostatic hyperplasia) Is this a current diagnosis for this admission?: Yes (12) Chronic indwelling [place] catheter Is this a current diagnosis for this admission?: Yes (13) Coronary artery disease Is this a current diagnosis for this admission?: Yes (14) Dysphagia Is this a current diagnosis for this admission?: Yes (16) Dysphagia, pharyngeal phase Is this a current diagnosis for this admission?: Yes (17) Dysphagia, pharyngoesophageal phase Is this a current diagnosis for this admission?: Yes (18) GERD (gastroesophageal reflux disease) Is this a current diagnosis for this admission?: Yes (19) History of implantable cardioverter-defibrillator (ICD) placement Is this a current diagnosis for this admission?: Yes (20) Hypokalemia Is this a current diagnosis for this admission?: Yes (21) Recurrent aspiration pneumonia Is this a current diagnosis for this admission?: Yes (22) Seizure disorder Is this a current diagnosis for this admission?: Yes (23) Sleep apnea syndrome Is this a current diagnosis for this admission?: Yes (24) Afib Is this a current diagnosis for this admission?: Yes (25) COPD (chronic obstructive pulmonary disease) Is this a current diagnosis for this admission?: Yes (26) Hyperkalemia Is this a current diagnosis for this admission?: Yes (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 Is this a current diagnosis for this admission?: Yes (28) DVT prophylaxis Is this a current diagnosis for this admission?: Yes (29) Do not intubate but use all other measures Is this a current diagnosis for this admission?: Yes - Additional Information Resuscitation Status: Do Not Intubate Discharge Diet: As Tolerated Discharge Activity: Activity As Tolerated Home Medications: Apixaban [Eliquis 5 mg Tablet] 5 mg PO BID 06/18/16 Aspirin [Adult Low Dose Aspirin EC] 81 mg PO DAILY 06/18/16 Budesonide/Formoterol Fumarate [Symbicort HFA 80-4.5 mcg Inhaler 6.9 gm] 2 puff IH Q12 06/18/16 Digoxin [Lanoxin 0.125 mg Tablet] 0.125 mg PO DAILY 06/18/16 Docusate Sodium [Colace 100 mg Capsule] 100 mg PO BID 06/18/16 Ferrous Sulfate [Iron] 325 mg PO DAILY 06/18/16 Gabapentin [Neurontin 300 mg Capsule] 300 mg PO Q8 06/18/16 Midodrine HCl 10 mg PO TID 06/18/16 Ondansetron HCl [Zofran 4 mg Tablet] 4 mg PO Q6HP PRN 06/18/16 Quetiapine Fumarate [Seroquel 25 mg Tablet] 25 tab PO QHS 06/18/16 Torsemide [Demadex 20 mg Tablet] 20 mg PO BID 06/18/16 Potassium Chloride [Klor-Con 10 Meq Tablet.sa] 20 meq PO Q12 tablet.sa Tamsulosin HCl [Flomax 0.4 mg Cap.sr] 0.4 mg PO PCSUPPER cap.sr.24h 06/23/16 Magnesium Oxide [Mag-Ox 400 mg Tablet] 400 mg PO BID tablet 06/24/16 Acetaminophen [Tylenol 325 mg Tablet] 650 mg PO Q4HP PRN 07/09/16 Ipratropium/Albuterol Sulfate [Duoneb 3 ml Ampul] 3 ml NEB RTQ8HP PRN 07/09/16 Daptomycin [Cubicin Inj 500 mg Vial] 500 mg IV DAILY@1400 #9 vial 07/21/16 Hydrocortisone [Cortef 10 mg Tablet] 20 mg PO BID #0 tablet 07/21/16 History of Present Illness Patient complains of: Low blood pressure History of Present Illness: TUTU MURRAY is a 75 year old male resident of [facility], who presents to the emergency room for evaluation of above complaint. . Patient himself is oriented only to the fact that he is in the hospital. When asked the year, he stated 2011. When I asked why he was here, he stated "hell, I don' t know." Denies pain. No Friends or family available at bedside. Old inpatient records were reviewed. According to discussion with the emergency room physician, and review of his notes, EMS has been called several times recently to [facility] by the family, reportedly for problems with low blood pressure. Patient has underlying adrenal insufficiency, and takes Midodrine and oral steroids. The patient had refused transport each time, but, apparently when patient began "fluttering his eyes, " he agreed come to the emergency room. EMS reports that on their arrival at the [facility], blood pressure 66/44. After 250 mL's of normal saline, pressure was 100/60. 79/50 on arrival here. Responded well to IV fluids. Also has been given a dose of 100 mg of Solu- Cortef.. Patient denied any other symptoms. Hospitalized on our service 18 June through the third of this month with discharge diagnoses including pneumonia, acute and chronic respiratory failure with hypoxia, adrenal insufficiency, with DO NOT INTUBATE status noted. Hospital Course Hospital Course: The patient was admitted to the critical care unit. Hypotension and electrolyte derangement has been attributed to adrenal insufficiency. Steroids were increased with improvement in symptoms. The patient was found to be bacteremic. Culture was noted to be gram-positive cocci and therefore was started on daptomycin. The patient underwent line PICC line placement given the findings are consistent with MRSA. Repeat cultures revealed no growth. Culture was consistent with VRE also sensitive to daptomycin. Echocardiogram revealed decreased EF but no evidence of vegetation. Patient will return to [facility] with IV antibiotics 9 more doses. Physical Exam Vital Signs: Temp Pulse Resp BP Pulse Ox 97.9 F 55 L 18 99/58 L 92 07/21/16 08:00 07/21/16 08:00 07/21/16 08:00 07/21/16 08:00 07/21/16 08:00 Intake & Output 07/19/16 07/20/16 07/21/16 23:59 23:59 23:59 Intake Total 3054 2060 760 Output Total 2900 2100 900 Balance 154 -40 -140 General appearance: PRESENT: no acute distress, thin, well-developed Head exam: PRESENT: atraumatic, normocephalic Eye exam: PRESENT: conjunctiva pink, EOMI, PERRLA. ABSENT: scleral icterus Ear exam: PRESENT: normal external ear exam Mouth exam: PRESENT: moist, tongue midline Neck exam: ABSENT: carotid bruit, JVD, lymphadenopathy, thyromegaly Respiratory exam: PRESENT: clear to auscultation nic. ABSENT: rales, rhonchi, wheezes Cardiovascular exam: PRESENT: RRR. ABSENT: diastolic murmur, rubs, systolic murmur Pulses: PRESENT: normal carotid pulses, normal radial pulses Vascular exam: PRESENT: normal capillary refill GI/Abdominal exam: PRESENT: normal bowel sounds, soft. ABSENT: distended, guarding, mass, organolmegaly, rebound, tenderness Rectal exam: PRESENT: deferred Extremities exam: PRESENT: full ROM. ABSENT: calf tenderness, clubbing, pedal edema Musculoskeletal exam: PRESENT: ambulatory - right knee (Chronic), full ROM, tenderness Neurological exam: PRESENT: alert, awake, oriented to person, oriented to place , oriented to time, oriented to situation, CN II-XII grossly intact. ABSENT: motor sensory deficit Psychiatric exam: PRESENT: appropriate affect, normal mood. ABSENT: homicidal ideation, suicidal ideation Skin exam: PRESENT: dry, intact, warm. ABSENT: cyanosis, rash Results Laboratory Results: Labs- Last Values WBC 15.8 10^3/uL (4.0-10.5) H 07/21/16 05:09 RBC 3.63 10^6/uL (4.35-5.55) L 07/21/16 05:09 Hgb 10.9 g/dL (13.5-17.0) L 07/21/16 05:09 Hct 33.2 % (37.9-51.0) L 07/21/16 05:09 MCV 92 fl (80-97) 07/21/16 05:09 MCH 30.0 pg (27.0-33.4) 07/21/16 05:09 MCHC 32.8 g/dL (32.0-36.0) 07/21/16 05:09 RDW 16.2 % (11.5-14.0) H 07/21/16 05:09 Plt Count 294 10^3/uL (150-450) 07/21/16 05:09 Total Counted 100 07/21/16 05:09 Seg Neutrophils % Not Reportable 07/21/16 05:09 Seg Neuts % (Manual) 70 % (42-78) 07/21/16 05:09 Band Neutrophils % 1 % (3-5) L 07/21/16 05:09 Lymphocytes % Not Reportable 07/21/16 05:09 Lymphocytes % (Manual) 24 % (13-45) 07/21/16 05:09 Atypical Lymphs % 2 % (0) 07/08/16 19:35 Monocytes % Not Reportable 07/21/16 05:09 Monocytes % (Manual) 5 % (3-13) 07/21/16 05:09 Eosinophils % Not Reportable 07/21/16 05:09 Eosinophils % (Manual) 0 % (0-6) 07/21/16 05:09 Basophils % Not Reportable 07/21/16 05:09 Basophils % (Manual) 0 % (0-2) 07/21/16 05:09 Absolute Neutrophils Not Reportable 07/21/16 05:09 Abs Neuts (Manual) 11.2 10^3/uL (1.7-8.2) H 07/21/16 05:09 Absolute Lymphocytes Not Reportable 07/21/16 05:09 Abs Lymphs (Manual) 3.8 10^3/uL (0.5-4.7) 07/21/16 05:09 Absolute Monocytes Not Reportable 07/21/16 05:09 Abs Monocytes (Manual) 0.8 10^3/uL (0.1-1.4) 07/21/16 05:09 Absolute Eosinophils Not Reportable 07/21/16 05:09 Absolute Eos (Manual) 0.0 10^3/uL (0.0-0.6) 07/21/16 05:09 Absolute Basophils Not Reportable 07/21/16 05:09 Abs Basophils (Manual) 0.0 10^3/uL (0.0-0.2) 07/21/16 05:09 Toxic Granulation SLIGHT 07/21/16 05:09 Toxic Vacuolation PRESENT 07/21/16 05:09 Platelet Estimate Cancelled 07/11/16 04:47 Clumped Platelets PRESENT 07/08/16 19:35 Platelet Comment ADEQUATE 07/21/16 05:09 Polychromasia SLIGHT 07/09/16 04:58 Hypochromasia SLIGHT 07/08/16 19:35 Poikilocytosis SLIGHT 07/21/16 05:09 Anisocytosis 1+ 07/21/16 05:09 Ovalocytes SLIGHT 07/21/16 05:09 Rouleaux SLIGHT 07/09/16 04:58 Schistocytes SLIGHT 07/21/16 05:09 Sodium 136.4 mmol/L (137-145) L 07/21/16 05:09 Potassium 3.7 mmol/L (3.6-5.0) 07/21/16 05:09 Chloride 94 mmol/L (98-107) L 07/21/16 05:09 Carbon Dioxide 34 mmol/L (22-30) H 07/21/16 05:09 Anion Gap 8 (5-19) 07/21/16 05:09 BUN 24 mg/dL (7-20) H 07/21/16 05:09 Creatinine 0.59 mg/dL (0.52-1.25) 07/21/16 05:09 Est GFR ( Amer) > 60 (>60) 07/21/16 05:09 Est GFR (Non-Af Amer) > 60 (>60) 07/21/16 05:09 Glucose 108 mg/dL (75-110) 07/21/16 05:09 Calcium 8.7 mg/dL (8.4-10.2) 07/21/16 05:09 Magnesium 1.9 mg/dL (1.6-2.3) 07/15/16 05:26 Total Bilirubin 1.1 mg/dL (0.2-1.3) 07/08/16 19:35 Direct Bilirubin 0.9 mg/dL (0.0-0.4) H 07/08/16 19:35 Indirect Bilirubin Not Reportable 07/08/16 19:35 Neonat Total Bilirubin Not Reportable 07/08/16 19:35 AST 16 U/L (17-59) L 07/08/16 19:35 ALT 19 U/L (21-72) L 07/08/16 19:35 Alkaline Phosphatase 261 U/L (38-126) H 07/08/16 19:35 Creatine Kinase < 20 U/L (55-170) L 07/08/16 19:35 CK-MB (CK-2) 1.64 ng/mL (<4.55) 07/08/16 19:35 Troponin I 0.025 ng/mL 07/09/16 04:58 B-Natriuretic Peptide Cancelled 07/08/16 19:35 NT-Pro-B Natriuret Pep 4770 pg/mL (5-900) H 07/08/16 19:35 Total Protein 6.8 g/dL (6.3-8.2) 07/08/16 19:35 Albumin 3.4 g/dL (3.5-5.0) L 07/08/16 19:35 Urine Color STRAW 07/08/16 19:40 Urine Appearance CLEAR 07/08/16 19:40 Urine pH 7.0 (5.0-9.0) 07/08/16 19:40 Ur Specific [place] 1.005 07/08/16 19:40 Urine Protein NEGATIVE mg/dL (NEGATIVE) 07/08/16 19:40 Urine Glucose (UA) NEGATIVE mg/dL (NEGATIVE) 07/08/16 19:40 Urine Ketones NEGATIVE mg/dL (NEGATIVE) 07/08/16 19:40 Urine Blood NEGATIVE (NEGATIVE) 07/08/16 19:40 Urine Nitrite NEGATIVE (NEGATIVE) 07/08/16 19:40 Urine Bilirubin NEGATIVE (NEGATIVE) 07/08/16 19:40 Urine Urobilinogen NEGATIVE mg/dL (<2.0) 07/08/16 19:40 Ur Leukocyte Esterase MODERATE (NEGATIVE) H 07/08/16 19:40 Urine WBC (Auto) 9 /HPF 07/08/16 19:40 Urine RBC (Auto) 2 /HPF 07/08/16 19:40 Urine Bacteria (Auto) TRACE /HPF 07/08/16 19:40 Urine Mucus (Auto) RARE /LPF 07/08/16 19:40 Urine Ascorbic Acid NEGATIVE (NEGATIVE) 07/08/16 19:40 Digoxin 1.04 ng/mL (0.8-2.0) 07/08/16 19:35 Slides for Path Review Cancelled 07/11/16 04:47 Impressions: Chest X-Ray 07/10/16 07:35 IMPRESSION: NO ACUTE RADIOGRAPHIC FINDING IN THE CHEST. Guidance Fluoroscopy 07/21/16 00:00 IMPRESSION: SUCCESSFUL PLACEMENT OF A 5 FR DUAL LUMEN 30 CM PICC IN THE right basilic VEIN. Interventional Vascular Procedure 07/21/16 00:00 IMPRESSION: SUCCESSFUL PLACEMENT OF A 5 FR DUAL LUMEN 30 CM PICC IN THE right basilic VEIN. PICC Line Insertion 07/21/16 00:00 IMPRESSION: SUCCESSFUL PLACEMENT OF A 5 FR DUAL LUMEN 30 CM PICC IN THE right basilic VEIN. Qualifiers PATEINT BEING DISCHARGED WITH ANY OF THE FOLLOWING DIAGNOSIS?: No Plan Time Spent: Less than 30 Minutes
[2016-07-21] MEDS ORDERED: NORMAL SALINE 10 ML SDV (AFTER EACH USE) IV PRN (12:58)
[2016-07-21] MEDS: DAPTOMYCIN 500 MG in NORMAL SALINE 50 ML IV SCH (13:44)
[2016-07-21 16:01] VITALS: BP 91/45
[2016-07-21] MEDS: ACETAMINOPHEN 325 MG TABLET PO PRN (16:26)
[2016-07-21] MEDS: TAMSULOSIN HCL 0.4 MG CAP.SR.24H PO SCH (17:07)
[2016-07-21] MEDS ORDERED: NORMAL SALINE 10 ML SDV (SCHEDULED) IV SCH (22:00)
== END 2016-07-21 20:15 | DRG 871 ==
LOC: ER 18:34 → UNDOADMIN 07-09 00:45 → EH 07-09 00:45 → ICU 07-09 06:35 → 5 07-09 18:33
PROVIDERS: ADMIT Family Medicine; ATTEND Family Medicine
PROC: 02HV33Z Insertion of Infusion Device into Superior Vena Cava, Percutaneous Approach (ICD-10-PCS; principal; 2016-07-21)
PROC: B548ZZA Ultrasonography of Superior Vena Cava, Guidance (ICD-10-PCS; 2016-07-21)
DX: A41.02 Sepsis due to Methicillin resistant Staphylococcus aureus (principal); R65.21 Severe sepsis with septic shock; E27.40 Unspecified adrenocortical insufficiency; E87.1 Hypo-osmolality and hyponatremia; T83.511A Infection and inflammatory reaction due to indwelling urethral catheter, initial encounter; I50.22 Chronic systolic (congestive) heart failure; I42.9 Cardiomyopathy, unspecified; N39.0 Urinary tract infection, site not specified; N17.9 Acute kidney failure, unspecified; E86.0 Dehydration; I11.0 Hypertensive heart disease with heart failure; Z66 Do not resuscitate; I48.91 Unspecified atrial fibrillation; I25.10 Atherosclerotic heart disease of native coronary artery without angina pectoris; E78.5 Hyperlipidemia, unspecified; J44.9 Chronic obstructive pulmonary disease, unspecified; E11.9 Type 2 diabetes mellitus without complications; K21.9 Gastro-esophageal reflux disease without esophagitis; D64.9 Anemia, unspecified; E87.5 Hyperkalemia; N40.0 Benign prostatic hyperplasia without lower urinary tract symptoms; M19.90 Unspecified osteoarthritis, unspecified site; F43.10 Post-traumatic stress disorder, unspecified; I95.9 Hypotension, unspecified; F41.9 Anxiety disorder, unspecified; B95.2 Enterococcus as the cause of diseases classified elsewhere; Z16.22 Resistance to vancomycin related antibiotics; R13.13 Dysphagia, pharyngeal phase; G40.909 Epilepsy, unspecified, not intractable, without status epilepticus; G47.30 Sleep apnea, unspecified; Z95.810 Presence of automatic (implantable) cardiac defibrillator; Z82.49 Family history of ischemic heart disease and other diseases of the circulatory system; Z79.899 Other long term (current) drug therapy; B35.6 Tinea cruris; Z79.01 Long term (current) use of anticoagulants; Z79.52 Long term (current) use of systemic steroids; Z87.891 Personal history of nicotine dependence; Z88.8 Allergy status to other drugs, medicaments and biological substances
CPT/HCPCS: 36415; 36569; 71010; 76937; 77001; 80048; 80053; 80162; 81001; 82550; 82553; 83735; 83880; 84484; 85025; 87040; 87077; 87086; 87088; 87186; 93005; 93010; 93306; 96374; 99285; G8978-GP; G8979-GP; J0696; J0878; J1642; J1720; J3370; J3490; J7030; J7060

== ENCOUNTER → 2016-08-11 | Outpatient (CLI) | payer MEDICARE ==
[2016-08-11 17:00] LABS: ABSOLUTE BASOPHILS # (AUTO) 0.1 10^3/uL (0.0-0.2); ABSOLUTE EOSINOPHILS # (AUTO) 0.2 10^3/uL (0.0-0.6); ABSOLUTE LYMPHOCYTES (AUTO) 1.2 10^3/uL (0.5-4.7); ABSOLUTE MONOCYTES (AUTO) 1.2 10^3/uL (0.1-1.4); BASOPHILS % (AUTO) 0.9 % (0-2); EOSINOPHILS % (AUTO) 1.9 % (0-6); HEMATOCRIT 31.4 % (37.9-51.0); HEMOGLOBIN 9.9 g/dL (13.5-17.0); HGB HCT DIFFERENCE -1.7; LYMPHOCYTES % (AUTO) 13.8 % (13-45); MEAN CORPUSCULAR HEMOGLOBIN 29.6 pg (27.0-33.4); MEAN CORPUSCULAR HGB CONC 31.5 g/dL (32.0-36.0); MEAN CORPUSCULAR VOLUME 94 fl (80-97); MONOCYTES % (AUTO) 14.1 % (3-13); RED BLOOD COUNT 3.34 10^6/uL (4.35-5.55); RED CELL DISTRIBUTION WIDTH 17.8 % (11.5-14.0); SEGMENTED NEUTROPHILS % (AUTO) 69.3 % (42-78); WHITE BLOOD COUNT 8.6 10^3/uL (4.0-10.5)
[2016-08-11 17:47] LABS: ERYTHROCYTE SEDIMENTATION RATE 72 mm/hr (0-20)
== END ==
LOC: OD 15:37
PROVIDERS: ATTEND Orthopaedic Surgery
DX: M25.561 Pain in right knee (principal)
CPT/HCPCS: 36415; 85025; 85652; 86140; 86200

== ENCOUNTER → 2016-08-14 | Outpatient (CLI) | payer MEDICARE ==
--- NOTE | 2016-08-14 16:40 | RADIOLOGY REPORT (SQ) ---
EXAM DESCRIPTION: NM 3 PHASE BONE SCAN COMPLETED DATE/TIME: 08/14/2016 4:10 pm REASON FOR STUDY: INFECTION AND INFLAMMATORY REACTION DUE TO UNSPECIFIED INTERNAL JOINT PROST T84.53 XA INFECT/INFLM REACTION DUE TO INTERNAL R KNEE PROSTH COMPARISON: Right knee films 08/30/2015, 08/02/2015 RADIONUCLIDE AND DOSE: 21.7 millicuries Tc99m MDP. The route of agent administration: Intravenous. ADDITIONAL DRUGS AND DOSES: None. TECHNIQUE: Following injection of the radiopharmaceutical, serial blood flow images acquired. Equil ibrium blood pool images then acquired. Routine delayed images at 3 hours acquired of the areas of c linical concern with additional focused images as needed. AREA OF INTEREST: Bilateral knees LIMITATIONS: None. FINDINGS: VASCULAR FLOW IMAGES: Asymmetrically increased blood flow to the right knee soft tissues a s compared to the left BLOOD POOL IMAGES: Asymmetrically increased blood pool activity at the right knee as compared to the left BONES: Delayed images show persistent increased uptake at the patella, distal femur, and proximal tib ia adjacent to right total knee replacement hardware. OTHER: There is mild increased uptake on delayed images at the distal left femur, proximal tibia and patella at the knee joint IMPRESSION: Increased blood flow, blood pool, and delayed imaging of the right knee adjacent to a to araseli knee replacement worrisome for infection COMMENT: PQRS 3570F: Current bone scan is compared with any available plain radiographs, prior bone scans, and CT/MRI. TECHNICAL DOCUMENTATION: JOB ID: [id number] [employer]- All Rights Reserved
== END ==
LOC: RAD 10:41
PROVIDERS: ATTEND Orthopaedic Surgery
DX: T84.53XA Infection and inflammatory reaction due to internal right knee prosthesis, initial encounter (principal)
CPT/HCPCS: 78315; A9561; Q9969

== ENCOUNTER 2016-08-15 21:28 | Emergency (ER) | payer MEDICARE ==
[2016-08-15 21:53] LABS: ABSOLUTE LYMPHOCYTES (AUTO) 0.8 10^3/uL (0.5-4.7); ABSOLUTE MONOCYTES (AUTO) 0.7 10^3/uL (0.1-1.4); BASOPHILS % (AUTO) 0.5 % (0-2); EOSINOPHILS % (AUTO) 0.4 % (0-6); HEMATOCRIT 32.1 % (37.9-51.0); HEMOGLOBIN 10.2 g/dL (13.5-17.0); HGB HCT DIFFERENCE -1.5; LYMPHOCYTES % (AUTO) 9.1 % (13-45); MEAN CORPUSCULAR HEMOGLOBIN 29.5 pg (27.0-33.4); MEAN CORPUSCULAR HGB CONC 31.7 g/dL (32.0-36.0); MEAN CORPUSCULAR VOLUME 93 fl (80-97); MONOCYTES % (AUTO) 8.6 % (3-13); RED BLOOD COUNT 3.44 10^6/uL (4.35-5.55); RED CELL DISTRIBUTION WIDTH 17.6 % (11.5-14.0); SEGMENTED NEUTROPHILS % (AUTO) 81.4 % (42-78); WHITE BLOOD COUNT 8.6 10^3/uL (4.0-10.5)
[2016-08-15 22:17] LABS: ALANINE AMINOTRANSFERASE 78 U/L (21-72); ALBUMIN 3.3 g/dL (3.5-5.0); ALKALINE PHOSPHATASE 188 U/L (38-126); ANION GAP 12 (5-19); ASPARTATE AMINO TRANSFERASE 113 U/L (17-59); BILIRUBIN,DIRECT 1.4 mg/dL (0.0-0.4); BILIRUBIN,TOTAL 2.2 mg/dL (0.2-1.3); BLOOD UREA NITROGEN 35 mg/dL (7-20); CARBON DIOXIDE 18 mmol/L (22-30); CHLORIDE 99 mmol/L (98-107); CREATINE KINASE 71 U/L (55-170); CREATININE RESULT 0.99 mg/dL (0.52-1.25); GLUCOSE 90 mg/dL (75-110); POTASSIUM 5.4 mmol/L (3.6-5.0); SODIUM 129.4 mmol/L (137-145); TOTAL PROTEIN 6.6 g/dL (6.3-8.2)
[2016-08-15 22:24] LABS: CREATINE KINASE MB 4.37 ng/mL (<4.55)
[2016-08-15 22:28] LABS: APPEARANCE,URINE CLOUDY; BILIRUBIN,URINE NEGATIVE (NEGATIVE); GLUCOSE, URINE NEGATIVE (NEGATIVE); KETONES,URINE NEGATIVE (NEGATIVE); LEUKOCYTE ESTERASE,URINE LARGE (NEGATIVE); NITRITE,URINE NEGATIVE (NEGATIVE); PROTEIN,URINE 30 mg/dL (NEGATIVE); URINE SPECIFIC GRAVITY 1.012; UROBILINOGEN,URINE NEGATIVE mg/dL (<2.0)
[2016-08-15 22:28] LABS: TROPONIN I 0.037 ng/mL
[2016-08-15 22:36] LABS: BACTERIA,URINE 4+ /HPF; RBC,URINE 30-50 /HPF; WBC,URINE 30-50 /HPF
--- NOTE | 2016-08-15 22:41 | RADIOLOGY REPORT (SQ) ---
EXAM DESCRIPTION: CHEST SINGLE VIEW COMPLETED DATE/TIME: 08/15/2016 10:30 pm REASON FOR STUDY: shortness of breath COMPARISON: 07/10/2016 EXAM PARAMETERS: NUMBER OF VIEWS: One view. TECHNIQUE: Single frontal radiographic view of the chest acquired. RADIATION DOSE: NA LIMITATIONS: None. FINDINGS: LUNGS AND PLEURA: No opacities, masses or pneumothorax. No pleural effusion. MEDIASTINUM AND HILAR STRUCTURES: No masses. Contour normal. HEART AND VASCULAR STRUCTURES: Heart normal in size. Normal vasculature. BONES: No acute findings. HARDWARE: AICD appears stable in position and appearance. OTHER: No other significant finding. IMPRESSION: NO ACUTE RADIOGRAPHIC FINDING IN THE CHEST. TECHNICAL DOCUMENTATION: JOB ID: [id number]
[2016-08-15] MEDS ORDERED: IPRATROPIUM/ALBUTEROL 0.5-2.5 MG/3 ML AMPUL NEB ONE (23:41)
[2016-08-15] MEDS ORDERED: CIPROFLOXACIN HCL 500 MG TABLET PO ONE (23:43)
--- NOTE | 2016-08-15 23:44 | ER Document Report ---
ED General - General Chief Complaint: Shortness Of Breath Stated Complaint: SHORTNESS OF BREATH Time Seen by Provider: 08/15/16 21:35 Mode of Arrival: Medic Information source: Patient Notes: 35-year-old male history of COPD presents with complaints of shortness of breath. Patient notes he is chronically short of breath, that this is nothing new. His nausea vomiting or diarrhea. Patient denies any chest pain. Patient states the only reason he is here is because his forced him to come in. Patient does have an indwelling Blake TRAVEL OUTSIDE OF THE [place] IN LAST 30 DAYS: No - HPI Onset: Other - Chronic Onset/Duration: Persistent Quality of pain: No pain Severity: Mild Pain Level: Denies Associated symptoms: Shortness of breath Exacerbated by: Denies Relieved by: Denies Similar symptoms previously: Yes Recently seen / treated by doctor: Yes - Related Data Allergies/Adverse Reactions: lorazepam [From Ativan] Adverse Reaction (Verified 07/09/16 05:05) Past Medical History - Social History Smoking Status: Former Smoker Cigarette use (# per day): No Chew tobacco use (# tins/day): No Smoking Education Provided: No Family History: CAD, COPD - Past Medical History Cardiac Medical History: Reports: Hx Atrial Fibrillation, Hx Congestive Heart Failure, Hx Coronary Artery Disease, Hx Hypercholesterolemia, Hx Hypertension Denies: Hx Heart Attack, Hx Peripheral Vascular Disease, Hx Pulmonary Embolism, Hx Heart Murmur Pulmonary Medical History: Reports: Hx Bronchitis, Hx COPD, Hx Pneumonia Denies: Hx Asthma, Hx Respiratory Failure, Hx Sleep Apnea, Hx Tuberculosis Neurological Medical History: Reports: Hx Seizures - Last time 3 to 4 yrs ago. Denies: Hx Cerebrovascular Accident Endocrine Medical History: Reports: Hx Diabetes Mellitus Type 2 Renal/ Medical History: Reports: Hx Benign Prostatic Hyperplasia. Denies: Hx Peritoneal Dialysis Malignancy Medical History: Denies Hx Lung Cancer GI Medical History: Reports: Hx Gastroesophageal Reflux Disease, Hx Ulcer - age 30. Denies: Hx Crohn's Disease, Hx Hiatal Hernia, Hx Irritable Bowel, Hx Liver Failure Musculoskeltal Medical History: Reports Hx Arthritis - All over, Denies Hx Fibromyalgia, Denies Hx Multiple Sclerosis, Denies Hx Muscular Dystrophy Psychiatric Medical History: Reports: Hx Dementia Denies: Hx Bipolar Disorder, Hx Depression, Hx Post Traumatic Stress Disorder , Hx Schizophrenia Traumatic Medical History: Denies: Hx Fractures Infectious Medical History: Denies: Hx HIV Past Surgical History: Reports: Hx Adenoidectomy, Hx Cardiac Surgery - pacemaker defibulator, Hx Internal Defibrillator, Hx Orthopedic Surgery - right knee, left hip, Hx Pacemaker - See Pacemaker Checklist, Hx Tonsillectomy. Denies: Hx Appendectomy, Hx Bowel Surgery, Hx Cholecystectomy, Hx Colostomy, Hx Coronary Artery Bypass Graft, Hx Gastric Bypass Surgery, Hx Herniorrhaphy - Immunizations Hx Diphtheria, Pertussis, Tetanus Vaccination: No Hx Pneumococcal Vaccination: 11/22/14 Review of Systems - Review of Systems Notes: REVIEW OF SYSTEMS: CONSTITUTIONAL : Denies fever, chills, or sweats. Denies recent illness. EENT: Denies eye, ear, throat, or mouth pain or symptoms. Denies nasal or sinus congestion or discharge. Denies throat, tongue, or mouth swelling or difficulty swallowing. CARDIOVASCULAR: Denies chest pain. Denies palpitations or racing or irregular heart beat. Denies ankle edema. RESPIRATORY: Admits to chronic shortness of breath GASTROINTESTINAL: Denies abdominal pain or distention. Denies nausea, vomiting , or diarrhea. Denies blood in vomitus, stools, or per rectum. Denies black, tarry stools. Denies constipation. GENITOURINARY: Denies difficulty urinating, painful urination, burning, frequency, blood in urine, or discharge. MUSCULOSKELETAL: Denies back or neck pain or stiffness. Denies joint pain or swelling. SKIN: Denies rash, lesions or sores. HEMATOLOGIC : Denies easy bruising or bleeding. LYMPHATIC: Denies swollen, enlarged glands. NEUROLOGICAL: Denies confusion or altered mental status. Denies passing out or loss of consciousness. Denies dizziness or lightheadedness. Denies headache. Denies weakness or paralysis or loss of use of either side. Denies problems with gait or speech. Denies sensory loss, numbness, or tingling. Denies seizures. PSYCHIATRIC: Denies anxiety or stress. Denies depression, suicidal ideation, or homicidal ideation. ALL OTHER SYSTEMS REVIEWED AND NEGATIVE. Dictation was performed using [employer] AM AT recognition software PHYSICAL EXAMINATION: GENERAL: Well-appearing, well-nourished and in no acute distress. HEAD: Atraumatic, normocephalic. EYES: Pupils equal round and reactive to light, extraocular movements intact, sclera anicteric, conjunctiva are normal. ENT: Nares patent, oropharynx clear without exudates. Moist mucous membranes. NECK: Normal range of motion, supple without lymphadenopathy LUNGS: Breath sounds clear to auscultation bilaterally and equal. No wheezes rales or rhonchi. HEART: Regular rate and rhythm without murmurs ABDOMEN: Soft, nontender, nondistended abdomen. No guarding, no rebound. No masses appreciated. Musculoskeletal: Normal range of motion, no pitting or edema. No cyanosis. NEUROLOGICAL: Cranial nerves grossly intact. Normal speech, normal gait. Normal sensory, motor exams PSYCH: Normal mood, normal affect. SKIN: Warm, Dry, normal turgor, no rashes or lesions noted. Physical Exam - Vital signs Vitals: Resp Pulse Ox 16 97 08/15/16 21:36 08/15/16 21:36 Course - Re-evaluation Re-evalutation: 08/15/16 23:43 Patient wishes to go home, he states his forced him to come in and that he has no new symptoms. The Blake was replaced and a possible urinary tract infection is noted and will be cultured patient will be started on antibiotics 08/16/16 00:35 After performing a Medical Screening Examination, I estimate there is LOW risk for ACUTE CORONARY SYNDROME, RESPIRATORY FAILURE, SEPSIS OR MENINGITIS, thus I consider the discharge disposition reasonable. I have reevaluated this patient multiple times and no significant life threatening changes are noted. The patient and I have discussed the diagnosis and risks, and we agree with discharging home with close follow-up. We also discussed returning to the Emergency Department immediately if new or worsening symptoms occur. We have discussed the symptoms which are most concerning (e.g., changing or worsening pain, trouble swallowing or breathing, neck stiffness, fever) that necessitate immediate return. - Vital Signs Vital signs: Temp Pulse Resp BP Pulse Ox 73 20 119/73 95 08/15/16 22:02 08/16/16 00:03 08/16/16 00:04 08/16/16 00:03 - Laboratory Result Diagrams: 08/15/16 21:40 08/15/16 21:40 Laboratory results interpreted by me: 08/15/16 08/15/16 08/15/16 21:40 21:40 21:40 RBC 3.44 L Hgb 10.2 L Hct 32.1 L MCHC 31.7 L RDW 17.6 H Seg Neutrophils % 81.4 H Lymphocytes % 9.1 L Sodium 129.4 L Potassium 5.4 H Carbon Dioxide 18 L BUN 35 H Total Bilirubin 2.2 H Direct Bilirubin 1.4 H AST 113 H ALT 78 H Alkaline Phosphatase 188 H NT-Pro-B Natriuret Pep 53357 H Albumin 3.3 L Urine Protein Urine Blood Ur Leukocyte Esterase 08/15/16 22:08 RBC Hgb Hct MCHC RDW Seg Neutrophils % Lymphocytes % Sodium Potassium Carbon Dioxide BUN Total Bilirubin Direct Bilirubin AST ALT Alkaline Phosphatase NT-Pro-B Natriuret Pep Albumin Urine Protein 30 H Urine Blood LARGE H Ur Leukocyte Esterase LARGE H - Diagnostic Test Radiology reviewed: Image reviewed, Reports reviewed - EKG Interpretation by Me EKG shows normal: Sinus rhythm, [place], Intervals, QRS Complexes When compared to previous EKG there are: No significant change Discharge - Discharge Clinical Impression: Hyponatremia, UTI (urinary tract infection), COPD (chronic obstructive pulmonary disease) Condition: Stable Disposition: HOME, SELF-CARE Instructions: Urinary Tract Infection ([facility]) Additional Instructions: Follow up with your physician tomorrow for further care or return to the ED IMMEDIATELY if symptoms worsen or new concerns occur. If you cannot afford to follow up with your primary care physician a list of low cost clinics have been provided at the end of your discharge papers as well. Prescriptions: Ciprofloxacin HCl [Cipro 500 mg Tablet] 500 mg PO BID #20 tablet
[2016-08-16 00:21] VITALS: BP 119/73
--- NOTE | 2016-08-17 08:59 | EKG REPORT ---
SEVERITY:- ABNORMAL ECG - VENTRICULAR-PACED RHYTHM : Confirmed on behalf of: Anabella Mueller 17-Aug-2016 08:58:51
== END 2016-08-16 00:20 | disposition home or self-care (01) ==
LOC: ER 21:28
DX: N39.0 Urinary tract infection, site not specified (principal); J44.9 Chronic obstructive pulmonary disease, unspecified; E87.1 Hypo-osmolality and hyponatremia; R06.02 Shortness of breath; Z87.891 Personal history of nicotine dependence
CPT/HCPCS: 93005; 94640; 99285; 51702; 36415; 87086; 82553; 82550; 85025; 87088; 80053; 81001; 84484; 87186; 83880; 71010; 93010; A9270 ×2; J7620

== ENCOUNTER 2016-08-18 15:28 | Inpatient (IN) | payer MEDICARE ==
[2016-08-18] MEDS ORDERED: ALBUTEROL SULFATE 0.083% NEB 2.5 MG/3 ML AMPUL NEB PRN (16:58)
[2016-08-18 17:11] LABS: HEMATOCRIT 28.8 % (37.9-51.0); HEMOGLOBIN 9.3 g/dL (13.5-17.0); HGB HCT DIFFERENCE -0.9; MEAN CORPUSCULAR HEMOGLOBIN 29.7 pg (27.0-33.4); MEAN CORPUSCULAR HGB CONC 32.4 g/dL (32.0-36.0); MEAN CORPUSCULAR VOLUME 92 fl (80-97); RED BLOOD COUNT 3.15 10^6/uL (4.35-5.55); RED CELL DISTRIBUTION WIDTH 18.2 % (11.5-14.0); WHITE BLOOD COUNT 6.4 10^3/uL (4.0-10.5)
--- NOTE | 2016-08-18 17:11 | RADIOLOGY REPORT (SQ) ---
EXAM DESCRIPTION: CHEST SINGLE VIEW COMPLETED DATE/TIME: 08/18/2016 4:56 pm REASON FOR STUDY: Pre-op eval COMPARISON: AP chest 08/15/2016, 07/10/2016 CT chest 05/23/2015 EXAM PARAMETERS: NUMBER OF VIEWS: One view. TECHNIQUE: Single frontal radiographic view of the chest acquired. RADIATION DOSE: NA LIMITATIONS: None. FINDINGS: LUNGS AND PLEURA: No opacities, masses or pneumothorax. No pleural effusion. MEDIASTINUM AND HILAR STRUCTURES: No masses. Contour normal. HEART AND VASCULAR STRUCTURES: Stable moderate cardiomegaly BONES: No acute findings. HARDWARE: Unchanged left-sided pacemaker OTHER: No other significant finding. IMPRESSION: NO ACUTE RADIOGRAPHIC FINDING IN THE CHEST. TECHNICAL DOCUMENTATION: JOB ID: [id number]
[2016-08-18 17:15] LABS: APPEARANCE,URINE CLOUDY; BILIRUBIN,URINE NEGATIVE (NEGATIVE); GLUCOSE, URINE NEGATIVE (NEGATIVE); KETONES,URINE NEGATIVE (NEGATIVE); LEUKOCYTE ESTERASE,URINE LARGE (NEGATIVE); NITRITE,URINE NEGATIVE (NEGATIVE); PROTEIN,URINE 100 mg/dL (NEGATIVE); URINE SPECIFIC GRAVITY 1.014; UROBILINOGEN,URINE NEGATIVE mg/dL (<2.0)
[2016-08-18 17:21] LABS: PROTHROMBIN TIME 42.9 SEC (11.4-15.4)
--- NOTE | 2016-08-18 17:30 | PDOC CONSULTATION ---
Consultation Consult Date: 08/18/16 Attending physician:: JONATHAN RIVERA Consult reason:: Multiple medical problems History of Present Illness Admission Date/PCP: 08/18/16 15:28 Dr. Remi Jennings Patient complains of: Right knee pain History of Present Illness: TUTU MURRAY SR is a 75 year old male that was directly admitted to the hospital by Dr. Rivera of orthopedics for right prosthetic knee joint infection. Patient had a bone scan on 07/14/2016 that was suspicious for infection around prostatic right knee joint. Dr. Rivera states that patient will likely need to stage surgery to address this issue. 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 Medications have not been verified. Patient has been having swelling in both lower extremities. He denies chest pain or shortness of breath. Past Medical History Cardiac Medical History: Reports: Atrial Fibrillation, Congestive Heart Failure , Coronary Artery Disease, Hyperlipidema, Hypertension Denies: Myocardial Infarction, Peripheral Vascular Disease, Pulmonary Embolism, Heart Murmur Pulmonary Medical History: Reports: Bronchitis, Chronic Obstructive Pulmonary Disease (COPD), Pneumonia Denies: Asthma, Respiratory Failure, Sleep Apnea, Tuberculosis Neurological Medical History: Reports: Seizures - Last time 3 to 4 yrs ago Endocrine Medical History: Reports: Diabetes Mellitus Type 2 - Diet controlled Renal/ Medical History: Malignancy Medical History: Denies: Lung Cancer GI Medical History: Reports: Gastroesophageal Reflux Disease Denies: Crohn's Disease, Hiatal Hernia Musculoskeltal Medical History: Reports: Arthritis - All over Denies: Fibromyalgia Psychiatric Medical History: Reports: Dementia Denies: Bipolar Disorder, Depression, Post Traumatic Stress Disorder Hematology: Reports: Anemia Infectious Medical History: Denies: HIV Past Surgical History Past Surgical History: Reports: Internal Defibrillator, Orthopedic Surgery - right knee, left hip, Pacemaker - See Pacemaker Checklist, Tonsillectomy Denies: Appendectomy, Cholecystectomy, Colostomy, Coronary Artery Bypass Graft, Gastric Bypass Surgery, Herniorrhaphy Social History Information Source: Patient Lives with: Spouse/Significant other Smoking Status: Former Smoker Frequency of Alcohol Use: None Hx Recreational Drug Use: No Drugs: None Hx Prescription Drug Abuse: No - Advance Directive Resuscitation Status: Full Code Family History Family History: CAD, COPD Parental Family History Reviewed: Yes Children Family History Reviewed: Yes Sibling(s) Family History Reviewed.: Yes Medication/Allergy Home Medications: Apixaban [Eliquis 5 mg Tablet] 5 mg PO BID 06/18/16 Aspirin [Adult Low Dose Aspirin EC] 81 mg PO DAILY 06/18/16 Budesonide/Formoterol Fumarate [Symbicort HFA 80-4.5 mcg Inhaler 6.9 gm] 2 puff IH Q12 06/18/16 Digoxin [Lanoxin 0.125 mg Tablet] 0.125 mg PO DAILY 06/18/16 Docusate Sodium [Colace 100 mg Capsule] 100 mg PO BID 06/18/16 Ferrous Sulfate [Iron] 325 mg PO DAILY 06/18/16 Gabapentin [Neurontin 300 mg Capsule] 300 mg PO Q8 06/18/16 Midodrine HCl 10 mg PO TID 06/18/16 Ondansetron HCl [Zofran 4 mg Tablet] 4 mg PO Q6HP PRN 06/18/16 Quetiapine Fumarate [Seroquel 25 mg Tablet] 25 tab PO QHS 06/18/16 Torsemide [Demadex 20 mg Tablet] 20 mg PO BID 06/18/16 Potassium Chloride [Klor-Con 10 Meq Tablet.sa] 20 meq PO Q12 tablet.sa Tamsulosin HCl [Flomax 0.4 mg Cap.sr] 0.4 mg PO PCSUPPER cap.sr.24h 06/23/16 Magnesium Oxide [Mag-Ox 400 mg Tablet] 400 mg PO BID tablet 06/24/16 Acetaminophen [Tylenol 325 mg Tablet] 650 mg PO Q4HP PRN 07/09/16 Ipratropium/Albuterol Sulfate [Duoneb 3 ml Ampul] 3 ml NEB RTQ8HP PRN 07/09/16 Daptomycin [Cubicin Inj 500 mg Vial] 500 mg IV DAILY@1400 #9 vial 07/21/16 Hydrocortisone [Cortef 10 mg Tablet] 20 mg PO BID #0 tablet 07/21/16 Ciprofloxacin HCl [Cipro 500 mg Tablet] 500 mg PO BID #20 tablet 08/15/16 Allergies/Adverse Reactions: lorazepam [From Ativan] Adverse Reaction (Verified 07/09/16 05:05) Review of Systems Constitutional: ABSENT: chills, fever(s), headache(s), weight gain, weight loss Eyes: ABSENT: visual disturbances Ears: ABSENT: hearing changes Cardiovascular: PRESENT: dyspnea on exertion, edema. ABSENT: chest pain, orthropnea, palpitations Respiratory: ABSENT: cough, hemoptysis Gastrointestinal: ABSENT: abdominal pain, constipation, diarrhea, hematemesis, hematochezia, nausea, vomiting Genitourinary: ABSENT: dysuria, hematuria Musculoskeletal: PRESENT: joint swelling - Right knee swelling/pain Integumentary: ABSENT: rash, wounds Neurological: ABSENT: abnormal gait, abnormal speech, confusion, dizziness, focal weakness, syncope Psychiatric: ABSENT: anxiety, depression, homidical ideation, suicidal ideation Endocrine: ABSENT: cold intolerance, heat intolerance, polydipsia, polyuria Hematologic/Lymphatic: ABSENT: easy bleeding, easy bruising Physical Exam Vital Signs: Temp Pulse Resp BP Pulse Ox 97.7 F 70 22 H 95/45 L 96 08/18/16 15:45 08/18/16 15:45 08/18/16 15:45 08/18/16 15:45 08/18/16 15:45 Intake & Output 08/17/16 08/18/16 08/19/16 06:59 06:59 06:59 Weight 105.5 kg PHYSICAL EXAM: GENERAL: Appears well, no acute distress HEENT: Normocephalic, no scleral icterus, conjunctiva clear, EOEM intact, PERRLA , moist mucous membranes NECK: trachea midline, no thyromegally RESPIRATORY: Bilateral expiratory wheezes, good air excursion CARDIAC: Irregular rhythm ABDOMEN: Soft, no distension, no tenderness, no guarding, normal bowel sounds, negative Hernandez sign RECTAL: deferred : deferred EXTREMITIES: Pitting edema in bilateral lower extremities MUSCULOSKELETAL: Swelling/redness around the right knee joint VASCULAR: normal peripheral pulses NEUROLOGIC: Alert, oriented to person/place/time, normal speech, cranial nerves grossly intact, 5/5 strength in all extremities, tactile sensation intact in all extremities SKIN: No rash, no wounds, no worrisome skin lesions PSYCHIATRIC: Normal mood, normal affect Results Laboratory Results: Labs- All tests 24 hr 08/18/16 16:44 WBC 6.4 RBC 3.15 L Hgb 9.3 L Hct 28.8 L MCV 92 MCH 29.7 MCHC 32.4 RDW 18.2 H Plt Count 236 Assessment & Plan - Diagnosis (1) Infection of prosthetic right knee joint Is this a current diagnosis for this admission?: YesPlan: Dr. Rivera managing. From a medical standpoint patient will be high perioperative risk and may be better served having surgery at tertiary care facility. (2) Acute systolic CHF (congestive heart failure) Is this a current diagnosis for this admission?: YesPlan: Patient has acutely decompensated systolic CHF. I will start him on IV Lasix 20 mg every 12 hours. Strict intake and output and daily weights. (3) Afib Qualifiers: Atrial fibrillation type: chronic Qualified Code(s): I48.2 - Chronic atrial fibrillation Is this a current diagnosis for this admission?: YesPlan: Verify home medications for heart rate control and resume. Discontinue Eliquis in preparation for upcoming surgery. Start Lovenox. (4) Adrenal insufficiency Is this a current diagnosis for this admission?: YesPlan: Verify home dose of hydrocortisone and continue for now. Patient will need stress dose steroids around time of surgery. (5) Anemia of chronic disease Is this a current diagnosis for this admission?: Yes (6) Chronic indwelling Blake catheter Is this a current diagnosis for this admission?: Yes (7) Coronary artery disease Qualifiers: Coronary Disease-Associated Artery/Lesion type: [place] artery [place] vs. 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
[2016-08-18 17:33] LABS: ANION GAP 12 (5-19); BLOOD UREA NITROGEN 41 mg/dL (7-20); C-REACTIVE PROTEIN 87.5 mg/L (<10.0); CALCIUM 8.6 mg/dL (8.4-10.2); CARBON DIOXIDE 18 mmol/L (22-30); CHLORIDE 94 mmol/L (98-107); CREATININE RESULT 0.97 mg/dL (0.52-1.25); GLUCOSE 83 mg/dL (75-110); POTASSIUM 5.8 mmol/L (3.6-5.0)
[2016-08-18 18:10] LABS: ERYTHROCYTE SEDIMENTATION RATE 39 mm/hr (0-20)
[2016-08-18] MEDS: FUROSEMIDE INJ/PF 20 MG/2 ML SDV IV SCH (18:39)
[2016-08-18] MEDS: OXYCODONE HCL IR 5 MG TABLET PO PRN (18:39)
[2016-08-18] MEDS ORDERED: NA PHOS,M-B/NA PHOS,DI-BA (ADULT) 133 ML ENEMA PR PRN (20:39)
[2016-08-18] MEDS: ACETAMINOPHEN 325 MG TABLET PO PRN (20:58)
[2016-08-18] MEDS ORDERED: LACTULOSE SYRUP 20 GM/30 ML UDCUP PO ONE (21:30)
--- NOTE | 2016-08-18 23:40 | EKG REPORT ---
SEVERITY:- ABNORMAL ECG - VENTRICULAR-PACED RHYTHM RIGHT BUNDLE BRANCH BLOCK : Confirmed by: Anabella Mueller 18-Aug-2016 23:39:46
[2016-08-19] MEDS: OXYCODONE HCL IR 5 MG TABLET PO PRN ×4 (00:26→21:28)
[2016-08-19 05:30] LABS: HEMATOCRIT 29.5 % (37.9-51.0); HEMOGLOBIN 9.7 g/dL (13.5-17.0); HGB HCT DIFFERENCE -0.4; MEAN CORPUSCULAR HEMOGLOBIN 30.3 pg (27.0-33.4); MEAN CORPUSCULAR HGB CONC 32.8 g/dL (32.0-36.0); MEAN CORPUSCULAR VOLUME 92 fl (80-97); RED BLOOD COUNT 3.19 10^6/uL (4.35-5.55); RED CELL DISTRIBUTION WIDTH 18.3 % (11.5-14.0); WHITE BLOOD COUNT 6.5 10^3/uL (4.0-10.5)
[2016-08-19 05:33] LABS: PROTHROMBIN TIME 36.2 SEC (11.4-15.4)
[2016-08-19 05:34] LABS: PARTIAL THROMBOPLASTIN TIME 61.7 SEC (23.5-35.8)
[2016-08-19] MEDS: FUROSEMIDE INJ/PF 20 MG/2 ML SDV IV SCH (05:47)
[2016-08-19] MEDS: ACETAMINOPHEN 325 MG TABLET PO PRN (05:47)
[2016-08-19] MEDS ORDERED: ENOXAPARIN SODIUM INJ 100 MG/1 ML DISP.SYRIN SUBCUT SCH (10:00)
[2016-08-19] MEDS ORDERED: FUROSEMIDE INJ/PF 20 MG/2 ML SDV IV SCH (11:08)
--- NOTE | 2016-08-19 11:25 | PDOC PROGRESS REPORT ---
Subjective Progress Note for:: 08/19/16 Subjective:: Patient has been restless according to nursing staff. He has also been mildly confused secondary to oxycodone. His states he gets this way anytime he takes narcotic pain medication. She does still want him to continue treatment for pain as he is very uncomfortable from his right knee. Physical Exam Vital Signs: Temp Pulse Resp BP Pulse Ox 97.5 F 40 L 21 H 97/62 L 98 08/19/16 07:44 08/19/16 07:44 08/19/16 07:44 08/19/16 07:44 08/19/16 07:44 Intake & Output 08/18/16 08/19/16 08/20/16 06:59 06:59 06:59 Intake Total 1960 Output Total 625 Balance 1335 Weight 106.4 kg GENERAL: No acute distress HEENT: Conjunctiva clear, nonicteric, moist mucous membranes, no JVD, midline trachea RESPIRATORY: Irregular, bradycardic CARDIAC: Regular rate and rhythm, no murmurs/gallops/rubs ABDOMEN: Soft, nondistended, nontender, positive bowel sounds, no rebound, no guarding EXTREMETIES: Pitting edema in bilateral lower extremities, right knee effusion/ warmth noted NEUROLOGIC: Alert, oriented to person/place/time, CN's grossly intact, no focal deficits SKIN: No rash, wounds PSYCH: Normal mood, normal affect Results Laboratory Results: 08/19/16 04:45 08/18/16 16:44 08/18/16 08/18/16 08/18/16 16:10 16:44 16:44 WBC 6.4 RBC 3.15 L Hgb 9.3 L Hct 28.8 L MCV 92 MCH 29.7 MCHC 32.4 RDW 18.2 H Plt Count 236 Sodium 124.0 L Potassium 5.8 H Chloride 94 L Carbon Dioxide 18 L Anion Gap 12 BUN 41 H Creatinine 0.97 Est GFR ( Amer) > 60 Est GFR (Non-Af Amer) > 60 Glucose 83 Calcium 8.6 C-Reactive Protein 87.5 H Urine Color YELLOW Urine Appearance CLOUDY Urine pH 5.0 Ur Specific [place] 1.014 Urine Protein 100 H Urine Glucose (UA) NEGATIVE Urine Ketones NEGATIVE Urine Blood MODERATE H Urine Nitrite NEGATIVE Ur Leukocyte Esterase LARGE H Urine WBC (Auto) 97 Urine RBC (Auto) 44 08/19/16 04:45 WBC 6.5 RBC 3.19 L Hgb 9.7 L Hct 29.5 L MCV 92 MCH 30.3 MCHC 32.8 RDW 18.3 H Plt Count 228 Sodium Potassium Chloride Carbon Dioxide Anion Gap BUN Creatinine Est GFR ( Amer) Est GFR (Non-Af Amer) Glucose Calcium C-Reactive Protein Urine Color Urine Appearance Urine pH Ur Specific [place] Urine Protein Urine Glucose (UA) Urine Ketones Urine Blood Urine Nitrite Ur Leukocyte Esterase Urine WBC (Auto) Urine RBC (Auto) Impressions: Chest X-Ray 08/18/16 00:00 IMPRESSION: NO ACUTE RADIOGRAPHIC FINDING IN THE CHEST. Assessment & Plan - Diagnosis (1) Infection of prosthetic right knee joint Is this a current diagnosis for this admission?: YesPlan: Dr. Rivera managing. From a medical standpoint patient will be high perioperative risk and may be better served having surgery at tertiary care facility. (2) Acute systolic CHF (congestive heart failure) Is this a current diagnosis for this admission?: YesPlan: Patient has acutely decompensated systolic CHF. Increase IV Lasix to 40 mg every 12 hours. Strict intake and output and daily weights. (3) Afib Qualifiers: Atrial fibrillation type: chronic Qualified Code(s): I48.2 - Chronic atrial fibrillation Is this a current diagnosis for this admission?: YesPlan: Discontinued Eliquis in preparation for upcoming surgery. Start Lovenox once INR less than 2.0. (4) Adrenal insufficiency Is this a current diagnosis for this admission?: YesPlan: Resume hydrocortisone at maintenance dose for now. Patient will need stress dose around time of surgery. (5) Anemia of chronic disease Is this a current diagnosis for this admission?: Yes (6) Chronic indwelling Blake catheter Is this a current diagnosis for this admission?: Yes (7) Coronary artery disease Qualifiers: Coronary Disease-Associated Artery/Lesion type: [place] artery [place] vs. transplanted heart: [place] heart Associated angina: angina presence unspecified Qualified Code(s): I25.10 - Atherosclerotic heart disease of [place] coronary artery without angina pectoris Is this a current diagnosis for this admission?: YesPlan: Continue low-dose aspirin. 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 (11) Pacemaker Is this a current diagnosis for this admission?: Yes - Time Time Spent with patient: 35 or more minutes
[2016-08-19] MEDS ORDERED: FUROSEMIDE INJ/PF 20 MG/2 ML SDV IV ONE (11:30)
[2016-08-19] MEDS: LEVOFLOXACIN 750 MG/D5W RTU 750 MG/150 ML RTUPB IV SCH (11:48)
[2016-08-19] MEDS: GABAPENTIN 300 MG CAPSULE PO SCH ×2 (13:29→21:29)
[2016-08-19] MEDS: MIDODRINE HCL 5 MG TABLET PO SCH ×2 (13:30→18:10)
[2016-08-19] MEDS ORDERED: (PENDING PHARMACY ID) (Midodrine Hcl [Midodrine Hcl] 10 MG) PO SCH (14:00)
--- NOTE | 2016-08-19 17:40 | PDOC H&P ---
History of Present Illness Admission Date/PCP: 08/18/16 15:28 History of Present Illness: Patient is a 76-year-old white male who is status post primary right knee arthroplasty February 2011 now presents with a swollen painful right knee. An attempted arthrocentesis was performed and did not yield synovial fluid. Subsequent sedimentation rate and C-reactive protein levels were elevated and a bone scan showed increased uptake consistent with an infected joint. The patient was admitted for surgical management but the recommendations of the hospitalist service and the anesthesia service were that he would be better transferred out because of his comorbidities. Past Medical History Cardiac Medical History: Reports: Atrial Fibrillation, Congestive Heart Failure , Coronary Artery Disease, Hyperlipidema, Hypertension Denies: Myocardial Infarction, Peripheral Vascular Disease, Pulmonary Embolism, Heart Murmur Pulmonary Medical History: Reports: Bronchitis, Chronic Obstructive Pulmonary Disease (COPD), Pneumonia Denies: Asthma, Respiratory Failure, Sleep Apnea, Tuberculosis Neurological Medical History: Reports: Seizures - Last time 3 to 4 yrs ago Endocrine Medical History: Reports: Diabetes Mellitus Type 2 - Diet controlled Renal/ Medical History: Malignancy Medical History: Denies: Lung Cancer GI Medical History: Reports: Gastroesophageal Reflux Disease Denies: Crohn's Disease, Hiatal Hernia Musculoskeltal Medical History: Reports: Arthritis - All over Denies: Fibromyalgia Psychiatric Medical History: Reports: Dementia Denies: Bipolar Disorder, Depression, Post Traumatic Stress Disorder Hematology: Reports: Anemia Infectious Medical History: Denies: HIV Past Surgical History Past Surgical History: Reports: Internal Defibrillator, Orthopedic Surgery - right knee February 2011, left hip, Pacemaker - See Pacemaker Checklist, Tonsillectomy Denies: Appendectomy, Cholecystectomy, Colostomy, Coronary Artery Bypass Graft, Gastric Bypass Surgery, Herniorrhaphy Social History Information Source: Patient, [facility], [facility] Records Lives with: Spouse/Significant other Smoking Status: Former Smoker Last Time Smoked: 1982 Frequency of Alcohol Use: None Hx Recreational Drug Use: No Drugs: None Hx Prescription Drug Abuse: No - Advance Directive Resuscitation Status: Full Code Family History Family History: CAD, COPD Parental Family History Reviewed: No Children Family History Reviewed: No Sibling(s) Family History Reviewed.: No Medication/Allergy Home Medications: Acetaminophen [Tylenol 325 mg Tablet] 650 mg PO Q4HP PRN 08/19/16 Apixaban [Eliquis 5 mg Tablet] 5 mg PO BID 08/19/16 Aspirin [Ecotrin 81 mg EC Tablet] 81 mg PO DAILY 08/19/16 Budesonide/Formoterol Fumarate [Symbicort Hfa 80-4.5 Mcg Inhaler 6.9 gm] 2 puff IH Q12 08/19/16 Digoxin [Lanoxin 0.125 mg Tablet] 0.125 mg PO DAILY 08/19/16 Docusate Sodium [Colace 100 mg Capsule] 100 mg PO BID 08/19/16 Ferrous Sulfate [Iron] 325 mg PO DAILY 08/19/16 Gabapentin [Neurontin 300 mg Capsule] 300 mg PO Q8 08/19/16 Hydrocortisone [Cortef 10 Mg Tablet] 20 mg PO BID 08/19/16 Ipratropium/Albuterol Sulfate [Duoneb 3 ml Ampul] 3 ml NEB RTQ8HP PRN 08/19/16 Magnesium Oxide [Mag-Ox 400 mg Tablet] 400 mg PO BID 08/19/16 Midodrine HCl 10 mg PO TID 08/19/16 Ondansetron [Zofran Odt 4 mg Tablet] 4 mg PO Q6HP PRN 08/19/16 Potassium Chloride [Klor-Con 10 Meq Tablet.sa] 20 meq PO Q12 08/19/16 Quetiapine Fumarate [Seroquel 25 mg Tablet] 25 mg PO QHS 08/19/16 Tamsulosin HCl [Flomax 0.4 mg Cap.sr] 0.4 mg PO PCSUPPER 08/19/16 Torsemide [Demadex 20 mg Tablet] 20 mg PO BID 08/19/16 Allergies/Adverse Reactions: lorazepam [From Ativan] Adverse Reaction (Verified 07/09/16 05:05) Review of Systems All systems: as per PMH Physical Exam Vital Signs: Temp Pulse Resp BP Pulse Ox 36.5 C 77 22 H 104/59 L 95 08/19/16 16:38 08/19/16 16:38 08/19/16 16:38 08/19/16 16:38 08/19/16 16:38 Intake & Output 08/18/16 08/19/16 08/20/16 06:59 06:59 06:59 Intake Total 1960 744 Output Total 625 700 Balance 1335 44 Weight 106.4 kg General appearance: PRESENT: mild distress, thin Head exam: PRESENT: normocephalic Eye exam: PRESENT: EOMI Respiratory exam: PRESENT: unlabored Cardiovascular exam: PRESENT: tachycardia Pulses: PRESENT: +1 pedal pulses bilateral Vascular exam: PRESENT: normal capillary refill GI/Abdominal exam: PRESENT: soft Rectal exam: PRESENT: deferred Extremities exam: PRESENT: other - Right knee with a well-healed midline incision. There is considerable fusiform swelling about the knee with induration and tenderness. There is erythema but no drainage. Distal neurovascular examination is intact. Neurological exam: PRESENT: alert, awake, oriented to person, oriented to place , oriented to time, oriented to situation. ABSENT: motor sensory deficit Psychiatric exam: PRESENT: agitated Skin exam: PRESENT: dry, intact, warm. ABSENT: cyanosis, rash Results Laboratory Results: 08/19/16 04:45 08/18/16 16:44 08/18/16 08/18/16 08/19/16 16:44 16:44 04:45 WBC 6.4 6.5 RBC 3.15 L 3.19 L Hgb 9.3 L 9.7 L Hct 28.8 L 29.5 L MCV 92 92 MCH 29.7 30.3 MCHC 32.4 32.8 RDW 18.2 H 18.3 H Plt Count 236 228 Sodium 124.0 L Potassium 5.8 H Chloride 94 L Carbon Dioxide 18 L Anion Gap 12 BUN 41 H Creatinine 0.97 Est GFR ( Amer) > 60 Est GFR (Non-Af Amer) > 60 Glucose 83 Calcium 8.6 C-Reactive Protein 87.5 H Impressions: Chest X-Ray 08/18/16 00:00 IMPRESSION: NO ACUTE RADIOGRAPHIC FINDING IN THE CHEST. Status: Imported from PACS Assessment & Plan - Diagnosis (1) Infection of prosthetic right knee joint Is this a current diagnosis for this admission?: YesPlan: 75-year-old white male with multiple medical comorbidities and a significant cardiac history now with her right knee periprosthetic infection. Require surgical intervention for this infection. Both the hospitalist service and the anesthesia service at [facility] did not feel comfortable with this person going to surgery without the necessary support systems that are not available here. - Time Time Spent: 50 to 70 Minutes Anticipated discharge: Tertiary Hospital - Plan Summary Plan Summary: Plan will be to transfer to a tertiary care center, potentially [facility]
--- NOTE | 2016-08-19 17:46 | PDOC TRANSFER SUMMARY ---
General Admission Date/PCP: 08/18/16 15:28 Accepting Facility: [facility] Resuscitation Status: Full Code - Transfer Diagnosis (1) Infection of prosthetic right knee joint Is this a current diagnosis for this admission?: Yes - Transfer Medications Home Medications: Acetaminophen [Tylenol 325 mg Tablet] 650 mg PO Q4HP PRN 08/19/16 Apixaban [Eliquis 5 mg Tablet] 5 mg PO BID 08/19/16 Aspirin [Ecotrin 81 mg EC Tablet] 81 mg PO DAILY 08/19/16 Budesonide/Formoterol Fumarate [Symbicort Hfa 80-4.5 Mcg Inhaler 6.9 gm] 2 puff IH Q12 08/19/16 Digoxin [Lanoxin 0.125 mg Tablet] 0.125 mg PO DAILY 08/19/16 Docusate Sodium [Colace 100 mg Capsule] 100 mg PO BID 08/19/16 Ferrous Sulfate [Iron] 325 mg PO DAILY 08/19/16 Gabapentin [Neurontin 300 mg Capsule] 300 mg PO Q8 08/19/16 Hydrocortisone [Cortef 10 Mg Tablet] 20 mg PO BID 08/19/16 Ipratropium/Albuterol Sulfate [Duoneb 3 ml Ampul] 3 ml NEB RTQ8HP PRN 08/19/16 Magnesium Oxide [Mag-Ox 400 mg Tablet] 400 mg PO BID 08/19/16 Midodrine HCl 10 mg PO TID 08/19/16 Ondansetron [Zofran Odt 4 mg Tablet] 4 mg PO Q6HP PRN 08/19/16 Potassium Chloride [Klor-Con 10 Meq Tablet.sa] 20 meq PO Q12 08/19/16 Quetiapine Fumarate [Seroquel 25 mg Tablet] 25 mg PO QHS 08/19/16 Tamsulosin HCl [Flomax 0.4 mg Cap.sr] 0.4 mg PO PCSUPPER 08/19/16 Torsemide [Demadex 20 mg Tablet] 20 mg PO BID 08/19/16 Transfer Medications: Current Medications Acetaminophen (Tylenol 325 Mg Tablet) 650 mg PO Q8HP PRN PRN Reason: PAIN Stop: 09/17/16 20:37 Last Admin: 08/19/16 05:47 Dose: 650 mg Albuterol (Ventolin 0.083% Neb 2.5 Mg/3 Ml Ampul) 2.5 mg NEB RTQ6HP PRN PRN Reason: SHORTNESS OF BREATH Stop: 09/17/16 16:57 Aspirin (Ecotrin 81 Mg Ec Tablet) 81 mg PO DAILY [facility] Stop: 09/19/16 09:59 Budesonide/Formoterol Fumarate (Symbicort Hfa 80-4.5 Mcg Inhaler 6.9 Gm) 2 puff IH Q12 [facility] Stop: 09/18/16 21:59 Digoxin (Lanoxin 0.125 Mg Tablet) 0.125 mg PO DAILY [facility] Stop: 09/19/16 09:59 Docusate Sodium (Colace 100 Mg Capsule) 100 mg PO BID [facility] Stop: 09/18/16 17:59 Ferrous Sulfate (Feosol 325 Mg Tablet) 325 mg PO DAILY [facility] Stop: 09/19/16 09:59 Furosemide (Lasix Inj/Pf 40 Mg/4 Ml Sdv) 40 mg IV Q12A [facility] Stop: 09/18/16 17:59 Gabapentin (Neurontin 300 Mg Capsule) 300 mg PO Q8 [facility] Stop: 09/18/16 13:59 Last Admin: 08/19/16 13:29 Dose: 300 mg Hydrocortisone (Cortef 10 Mg Tablet) 20 mg PO BID [facility] Stop: 09/18/16 17:59 Levofloxacin/Dextrose (Levaquin Rtu 750 Mg/D5w 150 Ml Premix) 750 mg in 150 mls @ 100 mls/hr IV NOON [facility] Stop: 08/26/16 11:59 Last Admin: 08/19/16 11:48 Dose: 150 ml Magnesium Oxide (Mag-Ox 400 Mg Tablet) 400 mg PO BID [facility] Stop: 09/18/16 17:59 Midodrine (Proamatine 5 Mg Tablet) 10 mg PO TID [facility] Stop: 09/18/16 13:59 Last Admin: 08/19/16 13:30 Dose: 10 mg Oxycodone HCl (Oxy-Ir 5 Mg Tablet) 5 mg PO Q6HP PRN PRN Reason: FOR PAIN SCALE 3-5 Stop: 08/25/16 17:04 Last Admin: 08/19/16 13:29 Dose: 5 mg Quetiapine Fumarate (Seroquel 25 Mg Tablet) 25 mg PO QHS [facility] Stop: 09/18/16 21:59 Sodium Biphosphate/Sodium Phosphate (Fleet Enema (Adult) 133 Ml) 133 ml NM Q12HP PRN PRN Reason: CONSTIPATION Stop: 09/17/16 20:38 Last Admin: 08/18/16 22:00 Dose: 133 ml Tamsulosin HCl (Flomax 0.4 Mg Cap.Sr) 0.4 mg PO PCSUPPER [facility] Stop: 09/18/16 17:59 - Allergies Allergies/Adverse Reactions: lorazepam [From Ativan] Adverse Reaction (Verified 07/09/16 05:05) Hospital Course Hospital Course: Admitted with suspected right periprosthetic knee infection. Consulting services including the hospitalist and anesthesia felt uncomfortable taking the patient to surgery with the support systems available at [facility]. Plan was for transfer to a tertiary care facility for the necessary medical and surgical care Physical Exam Vital Signs: Temp Pulse Resp BP Pulse Ox 36.5 C 77 22 H 104/59 L 95 08/19/16 16:38 08/19/16 16:38 08/19/16 16:38 08/19/16 16:38 08/19/16 16:38 Intake & Output 08/18/16 08/19/16 08/20/16 06:59 06:59 06:59 Intake Total 1960 744 Output Total 625 700 Balance 1335 44 Weight 106.4 kg General appearance: PRESENT: mild distress Head exam: PRESENT: normocephalic Eye exam: PRESENT: EOMI Respiratory exam: PRESENT: unlabored Cardiovascular exam: PRESENT: tachycardia Pulses: PRESENT: +1 pedal pulses bilateral GI/Abdominal exam: PRESENT: soft Rectal exam: PRESENT: deferred Extremities exam: PRESENT: joint swelling, other Musculoskeletal exam: PRESENT: other - Right knee with a well-healed midline incision. There is fusiform swelling with induration tenderness and erythema. Neurological exam: PRESENT: alert, awake, oriented to person, oriented to place , oriented to time, oriented to situation, CN II-XII grossly intact. ABSENT: motor sensory deficit Psychiatric exam: PRESENT: agitated, anxious Results Laboratory Results: 08/19/16 04:45 08/18/16 16:44 08/18/16 08/19/16 16:44 04:45 WBC 6.4 6.5 RBC 3.15 L 3.19 L Hgb 9.3 L 9.7 L Hct 28.8 L 29.5 L MCV 92 92 MCH 29.7 30.3 MCHC 32.4 32.8 RDW 18.2 H 18.3 H Plt Count 236 228 Impressions: Chest X-Ray 08/18/16 00:00 IMPRESSION: NO ACUTE RADIOGRAPHIC FINDING IN THE CHEST. Status: Imported from PACS Plan Discharge Plan: as Per the recommendations of anesthesia in the hospital service patient will be transferred to a tertiary care facility for ongoing medical and surgical care
[2016-08-19] MEDS ORDERED: FUROSEMIDE INJ/PF 40 MG/4 ML SDV IV SCH (18:00)
[2016-08-19] MEDS: TAMSULOSIN HCL 0.4 MG CAP.SR.24H PO SCH (18:06)
[2016-08-19] MEDS: DOCUSATE SODIUM 100 MG CAPSULE PO SCH (18:06)
[2016-08-19] MEDS: MAGNESIUM OXIDE 400 MG TABLET PO SCH (18:07)
[2016-08-19] MEDS: HYDROCORTISONE 10 MG TABLET PO SCH (18:07)
[2016-08-19 19:07] LABS: APPEARANCE,URINE CLEAR; BILIRUBIN,URINE NEGATIVE (NEGATIVE); GLUCOSE, URINE NEGATIVE (NEGATIVE); KETONES,URINE NEGATIVE (NEGATIVE); LEUKOCYTE ESTERASE,URINE SMALL (NEGATIVE); NITRITE,URINE NEGATIVE (NEGATIVE); PROTEIN,URINE NEGATIVE (NEGATIVE); URINE SPECIFIC GRAVITY 1.009; UROBILINOGEN,URINE NEGATIVE mg/dL (<2.0)
[2016-08-19] MEDS: BUDESONIDE/FORMOTEROL 80-4.5 MCG 60 PUFF/6.9 GM MDI IH SCH (21:29)
[2016-08-19] MEDS ORDERED: QUETIAPINE FUMARATE 25 MG TABLET PO SCH (22:00)
[2016-08-20 05:08] LABS: ABSOLUTE LYMPHOCYTES (AUTO) 0.6 10^3/uL (0.5-4.7); ABSOLUTE MONOCYTES (AUTO) 0.5 10^3/uL (0.1-1.4); ABSOLUTE NEUT (AUTO) 5.2 10^3/uL (1.7-8.2); BASOPHILS % (AUTO) 0.1 % (0-2); EOSINOPHILS % (AUTO) 0.1 % (0-6); HEMATOCRIT 28.9 % (37.9-51.0); HEMOGLOBIN 9.5 g/dL (13.5-17.0); HGB HCT DIFFERENCE -0.4; LYMPHOCYTES % (AUTO) 9.3 % (13-45); MEAN CORPUSCULAR HEMOGLOBIN 30.1 pg (27.0-33.4); MEAN CORPUSCULAR VOLUME 91 fl (80-97); MONOCYTES % (AUTO) 8.5 % (3-13); RED BLOOD COUNT 3.17 10^6/uL (4.35-5.55); WHITE BLOOD COUNT 6.4 10^3/uL (4.0-10.5)
[2016-08-20 05:16] LABS: PROTHROMBIN TIME 26.4 SEC (11.4-15.4)
[2016-08-20] MEDS: OXYCODONE HCL IR 5 MG TABLET PO PRN ×2 (05:16→15:40)
[2016-08-20] MEDS: GABAPENTIN 300 MG CAPSULE PO SCH ×2 (05:16→13:17)
[2016-08-20 05:17] LABS: PARTIAL THROMBOPLASTIN TIME 58.1 SEC (23.5-35.8)
[2016-08-20] MEDS: FUROSEMIDE INJ/PF 40 MG/4 ML SDV IV SCH ×2 (05:30→17:19)
[2016-08-20 05:32] LABS: ANION GAP 11 (5-19); BLOOD UREA NITROGEN 39 mg/dL (7-20); CALCIUM 8.4 mg/dL (8.4-10.2); CARBON DIOXIDE 18 mmol/L (22-30); CHLORIDE 95 mmol/L (98-107); CREATININE RESULT 0.95 mg/dL (0.52-1.25); GLUCOSE 98 mg/dL (75-110); POTASSIUM 5.3 mmol/L (3.6-5.0); SODIUM 124.4 mmol/L (137-145)
[2016-08-20] MEDS: MAGNESIUM OXIDE 400 MG TABLET PO SCH ×2 (09:35→17:16)
[2016-08-20] MEDS: HYDROCORTISONE 10 MG TABLET PO SCH ×2 (09:36→17:16)
[2016-08-20] MEDS: DOCUSATE SODIUM 100 MG CAPSULE PO SCH ×2 (09:36→17:16)
[2016-08-20] MEDS: BUDESONIDE/FORMOTEROL 80-4.5 MCG 60 PUFF/6.9 GM MDI IH SCH (09:36)
[2016-08-20] MEDS: MIDODRINE HCL 5 MG TABLET PO SCH ×3 (09:45→17:15)
[2016-08-20] MEDS ORDERED: ASPIRIN 81 MG TABLET, ENT COATED PO SCH (10:00)
[2016-08-20] MEDS ORDERED: FERROUS SULFATE 325 MG TABLET PO SCH (10:00)
[2016-08-20] MEDS ORDERED: DIGOXIN 0.125 MG TABLET PO SCH (10:00)
--- NOTE | 2016-08-20 10:28 | PDOC TRANSFER SUMMARY ---
General Admission Date/PCP: 08/18/16 15:28 Admission Date: 08/18/16 Transfer Date: 08/20/16 Accepting Facility: [facility] Resuscitation Status: Full Code - Transfer Diagnosis (1) Infection of prosthetic right knee joint Is this a current diagnosis for this admission?: Yes (2) Acute systolic CHF (congestive heart failure) Is this a current diagnosis for this admission?: Yes (3) Afib Is this a current diagnosis for this admission?: Yes (4) Adrenal insufficiency Is this a current diagnosis for this admission?: Yes (5) Anemia of chronic disease Is this a current diagnosis for this admission?: Yes (6) Chronic indwelling Blake catheter Is this a current diagnosis for this admission?: Yes (7) Coronary artery disease Is this a current diagnosis for this admission?: Yes (8) COPD (chronic obstructive pulmonary disease) Is this a current diagnosis for this admission?: Yes (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 Is this a current diagnosis for this admission?: Yes (10) Enterococcus UTI Is this a current diagnosis for this admission?: Yes (11) Pacemaker Is this a current diagnosis for this admission?: Yes - Transfer Medications Home Medications: Acetaminophen [Tylenol 325 mg Tablet] 650 mg PO Q4HP PRN 08/19/16 Apixaban [Eliquis 5 mg Tablet] 5 mg PO BID 08/19/16 Aspirin [Ecotrin 81 mg EC Tablet] 81 mg PO DAILY 08/19/16 Budesonide/Formoterol Fumarate [Symbicort Hfa 80-4.5 Mcg Inhaler 6.9 gm] 2 puff IH Q12 08/19/16 Digoxin [Lanoxin 0.125 mg Tablet] 0.125 mg PO DAILY 08/19/16 Docusate Sodium [Colace 100 mg Capsule] 100 mg PO BID 08/19/16 Ferrous Sulfate [Iron] 325 mg PO DAILY 08/19/16 Gabapentin [Neurontin 300 mg Capsule] 300 mg PO Q8 08/19/16 Hydrocortisone [Cortef 10 Mg Tablet] 20 mg PO BID 08/19/16 Ipratropium/Albuterol Sulfate [Duoneb 3 ml Ampul] 3 ml NEB RTQ8HP PRN 08/19/16 Magnesium Oxide [Mag-Ox 400 mg Tablet] 400 mg PO BID 08/19/16 Midodrine HCl 10 mg PO TID 08/19/16 Ondansetron [Zofran Odt 4 mg Tablet] 4 mg PO Q6HP PRN 08/19/16 Potassium Chloride [Klor-Con 10 Meq Tablet.sa] 20 meq PO Q12 08/19/16 Quetiapine Fumarate [Seroquel 25 mg Tablet] 25 mg PO QHS 08/19/16 Tamsulosin HCl [Flomax 0.4 mg Cap.sr] 0.4 mg PO PCSUPPER 08/19/16 Torsemide [Demadex 20 mg Tablet] 20 mg PO BID 08/19/16 Transfer Medications: Current Medications Acetaminophen (Tylenol 325 Mg Tablet) 650 mg PO Q8HP PRN PRN Reason: PAIN Stop: 09/17/16 20:37 Last Admin: 08/19/16 05:47 Dose: 650 mg Albuterol (Ventolin 0.083% Neb 2.5 Mg/3 Ml Ampul) 2.5 mg NEB RTQ6HP PRN PRN Reason: SHORTNESS OF BREATH Stop: 09/17/16 16:57 Aspirin (Ecotrin 81 Mg Ec Tablet) 81 mg PO DAILY RAMOS Stop: 09/19/16 09:59 Last Admin: 08/20/16 09:35 Dose: 81 mg Budesonide/Formoterol Fumarate (Symbicort Hfa 80-4.5 Mcg Inhaler 6.9 Gm) 2 puff IH Q12 RAMOS Stop: 09/18/16 21:59 Last Admin: 08/20/16 09:36 Dose: 2 puff Digoxin (Lanoxin 0.125 Mg Tablet) 0.125 mg PO DAILY RAMOS Stop: 09/19/16 09:59 Last Admin: 08/20/16 09:35 Dose: 0.125 mg Docusate Sodium (Colace 100 Mg Capsule) 100 mg PO BID RAMOS Stop: 09/18/16 17:59 Last Admin: 08/20/16 09:36 Dose: 100 mg Enoxaparin Sodium (Lovenox Inj 100 Mg/1 Ml Disp.Syrin) 100 mg SUBCUT Q12 RAMOS Stop: 09/20/16 09:59 Ferrous Sulfate (Feosol 325 Mg Tablet) 325 mg PO DAILY RAMOS Stop: 09/19/16 09:59 Last Admin: 08/20/16 09:34 Dose: 325 mg Furosemide (Lasix Inj/Pf 40 Mg/4 Ml Sdv) 40 mg IV Q12A RAMOS Stop: 09/18/16 05:59 Last Admin: 08/20/16 05:30 Dose: Not Given Gabapentin (Neurontin 300 Mg Capsule) 300 mg PO Q8 [facility] Stop: 09/18/16 13:59 Last Admin: 08/20/16 05:16 Dose: 300 mg Hydrocortisone (Cortef 10 Mg Tablet) 20 mg PO BID [facility] Stop: 09/18/16 17:59 Last Admin: 08/20/16 09:36 Dose: 20 mg Levofloxacin/Dextrose (Levaquin Rtu 750 Mg/D5w 150 Ml Premix) 750 mg in 150 mls @ 100 mls/hr IV NOON RAMOS Stop: 08/26/16 11:59 Last Admin: 08/19/16 11:48 Dose: 150 ml Magnesium Oxide (Mag-Ox 400 Mg Tablet) 400 mg PO BID [facility] Stop: 09/18/16 17:59 Last Admin: 08/20/16 09:35 Dose: 400 mg Midodrine (Proamatine 5 Mg Tablet) 10 mg PO TID [facility] Stop: 09/18/16 13:59 Last Admin: 08/20/16 09:45 Dose: Not Given Oxycodone HCl (Oxy-Ir 5 Mg Tablet) 5 mg PO Q6HP PRN PRN Reason: FOR PAIN SCALE 3-5 Stop: 08/25/16 17:04 Last Admin: 08/20/16 05:16 Dose: 5 mg Quetiapine Fumarate (Seroquel 25 Mg Tablet) 25 mg PO QHS [facility] Stop: 09/18/16 21:59 Last Admin: 08/19/16 21:29 Dose: 25 mg Tamsulosin HCl (Flomax 0.4 Mg Cap.Sr) 0.4 mg PO PCSUPPER [facility] Stop: 09/18/16 17:59 Last Admin: 08/19/16 18:06 Dose: 0.4 mg - Allergies Allergies/Adverse Reactions: lorazepam [From Ativan] Adverse Reaction (Verified 07/09/16 05:05) - Diet/Activity Discharge Diet: Cardiac Discharge Activity: Activity As Tolerated Hospital Course Hospital Course: Patient was admitted to orthopedic service for prosthetic right knee infection. Dr. Rivera of orthopedics was managing this issue. Patient was felt to be high perioperative risk secondary to multiple comorbid conditions mentioned above and decision was made to transfer patient to tertiary care facility for management. With respect to congestive heart failure, patient was acutely decompensated on presentation. He has severe systolic CHF with most recent EF less than 20% on echocardiogram from 07/17/2016. He is also noted to have grade 2/4 diastolic dysfunction. His oral diuretics were held on admission. He was started on Lasix 40 mg IV every 12 hours. Patient has adrenal insufficiency and chronic hypotension. He takes hydrocortisone and Midodrine. He will require stress dose steroids around time of surgery. Patient has an enterococcus urinary tract infection. Organism is susceptible to Levaquin. Patient is on IV Levaquin since 08/18/2016. Patient has chronic atrial fibrillation and is status post pacemaker. He is chronically anticoagulated with Eliquis prior to admission. Eliquis was held on admission secondary to associated coagulopathy. Coagulopathy has been improving over the course of admission. Patient will be placed on Lovenox for now pending possible upcoming surgery. He can be transitioned back to Eliquis postoperatively. Patient has coronary artery disease and is on low-dose aspirin therapy. He is asymptomatic from this standpoint. Patient recently has had issues with urinary retention and has had a indwelling Blake catheter. He was supposed to follow-up with urology as an outpatient but this will have to be deferred until he is past acute hospitalization. Physical Exam Vital Signs: Temp Pulse Resp BP Pulse Ox 98.2 F 72 16 100/46 L 94 08/20/16 07:40 08/20/16 08:31 08/20/16 08:31 08/20/16 07:40 08/20/16 08:31 Intake & Output 08/19/16 08/20/16 08/21/16 06:59 06:59 06:59 Intake Total 1960 1694 Output Total 625 1600 Balance 1335 94 Weight 106.4 kg 103.3 kg GENERAL: No acute distress HEENT: Conjunctiva clear, nonicteric, moist mucous membranes, no JVD, midline trachea RESPIRATORY: Irregular, bradycardic CARDIAC: Regular rate and rhythm, no murmurs/gallops/rubs ABDOMEN: Soft, nondistended, nontender, positive bowel sounds, no rebound, no guarding EXTREMETIES: Pitting edema in bilateral lower extremities, right knee effusion/ warmth noted NEUROLOGIC: Alert, oriented to person/place/time, CN's grossly intact, no focal deficits SKIN: No rash, wounds PSYCH: Normal mood, normal affect Results Laboratory Results: 08/20/16 04:47 08/20/16 04:47 08/19/16 08/20/16 08/20/16 18:40 04:47 04:47 WBC 6.4 RBC 3.17 L Hgb 9.5 L Hct 28.9 L MCV 91 MCH 30.1 MCHC 33.0 RDW 18.0 H Plt Count 219 Seg Neutrophils % 82.0 H Lymphocytes % 9.3 L Monocytes % 8.5 Eosinophils % 0.1 Basophils % 0.1 Absolute Neutrophils 5.2 Absolute Lymphocytes 0.6 Absolute Monocytes 0.5 Absolute Eosinophils 0.0 Absolute Basophils 0.0 Sodium 124.4 L Potassium 5.3 H Chloride 95 L Carbon Dioxide 18 L Anion Gap 11 BUN 39 H Creatinine 0.95 Est GFR ( Amer) > 60 Est GFR (Non-Af Amer) > 60 Glucose 98 Calcium 8.4 Urine Color YELLOW Urine Appearance CLEAR Urine pH 5.0 Ur Specific [place] 1.009 Urine Protein NEGATIVE Urine Glucose (UA) NEGATIVE Urine Ketones NEGATIVE Urine Blood SMALL H Urine Nitrite NEGATIVE Ur Leukocyte Esterase SMALL H Urine WBC (Auto) 4 Impressions: Chest X-Ray 08/18/16 00:00 IMPRESSION: NO ACUTE RADIOGRAPHIC FINDING IN THE CHEST. Plan Time Spent: Greater than 30 Minutes
[2016-08-20] MEDS: LEVOFLOXACIN 750 MG/D5W RTU 750 MG/150 ML RTUPB IV SCH (12:21)
[2016-08-20 17:05] VITALS: BP 94/55
[2016-08-20] MEDS: TAMSULOSIN HCL 0.4 MG CAP.SR.24H PO SCH (17:16)
[2016-08-21] MEDS ORDERED: ENOXAPARIN SODIUM INJ 100 MG/1 ML DISP.SYRIN SUBCUT SCH (10:00)
== END 2016-08-20 18:20 | disposition short-term general hospital (02) | DRG 559 ==
LOC: 4W 15:28
PROVIDERS: ADMIT Orthopaedic Surgery; ATTEND Orthopaedic Surgery
PROC: 3E0F73Z Introduction of Anti-inflammatory into Respiratory Tract, Via Natural or Artificial Opening (ICD-10-PCS; principal; 2016-08-18)
DX: T84.53XA Infection and inflammatory reaction due to internal right knee prosthesis, initial encounter (principal); I50.21 Acute systolic (congestive) heart failure; E27.40 Unspecified adrenocortical insufficiency; N39.0 Urinary tract infection, site not specified; I11.0 Hypertensive heart disease with heart failure; I48.2 Chronic atrial fibrillation; D63.8 Anemia in other chronic diseases classified elsewhere; I25.10 Atherosclerotic heart disease of native coronary artery without angina pectoris; J44.9 Chronic obstructive pulmonary disease, unspecified; B95.2 Enterococcus as the cause of diseases classified elsewhere; R33.9 Retention of urine, unspecified; E78.5 Hyperlipidemia, unspecified; E11.9 Type 2 diabetes mellitus without complications; Z95.0 Presence of cardiac pacemaker; Z79.01 Long term (current) use of anticoagulants; Z79.82 Long term (current) use of aspirin; Z79.899 Other long term (current) drug therapy; Z88.8 Allergy status to other drugs, medicaments and biological substances; Z87.891 Personal history of nicotine dependence; Z82.49 Family history of ischemic heart disease and other diseases of the circulatory system; Z83.6 Family history of other diseases of the respiratory system
CPT/HCPCS: 36415; 71010; 80048; 80053; 81001; 82550; 82553; 83880; 84484; 85025; 85027; 85610; 85652; 85730; 86140; 87086; 87088; 87186; 93005; 93010; J1940; J1956; J3490

== ENCOUNTER 2016-09-18 20:10 | Emergency (ER) | payer MEDICARE ==
[2016-09-18] MEDS ORDERED: FUROSEMIDE INJ/PF 20 MG/2 ML SDV IV ONE (20:55)
[2016-09-18] MEDS ORDERED: NORMAL SALINE 250 ML IV PRN (20:55)
[2016-09-18 21:16] LABS: ALANINE AMINOTRANSFERASE 18 U/L (21-72); ALBUMIN 2.3 g/dL (3.5-5.0); ALKALINE PHOSPHATASE 132 U/L (38-126); ANION GAP 10 (5-19); ASPARTATE AMINO TRANSFERASE 20 U/L (17-59); BILIRUBIN,DIRECT 2.8 mg/dL (0.0-0.4); BILIRUBIN,TOTAL 3.8 mg/dL (0.2-1.3); BLOOD UREA NITROGEN 32 mg/dL (7-20); CALCIUM 7.5 mg/dL (8.4-10.2); CARBON DIOXIDE 27 mmol/L (22-30); CHLORIDE 89 mmol/L (98-107); CREATININE RESULT 1.49 mg/dL (0.52-1.25); GLUCOSE 83 mg/dL (75-110); POTASSIUM 3.7 mmol/L (3.6-5.0); SODIUM 125.7 mmol/L (137-145); TOTAL PROTEIN 5.7 g/dL (6.3-8.2)
[2016-09-18 21:19] LABS: ABSOLUTE BASOPHILS # (AUTO) 0.2 10^3/uL (0.0-0.2); ABSOLUTE EOSINOPHILS # (AUTO) 0.2 10^3/uL (0.0-0.6); ABSOLUTE LYMPHOCYTES (AUTO) 0.8 10^3/uL (0.5-4.7); ABSOLUTE MONOCYTES (AUTO) 0.9 10^3/uL (0.1-1.4); ABSOLUTE NEUT (AUTO) 3.1 10^3/uL (1.7-8.2); BASOPHILS % (AUTO) 3.3 % (0-2); EOSINOPHILS % (AUTO) 4.6 % (0-6); HEMATOCRIT 24.5 % (37.9-51.0); HGB HCT DIFFERENCE -0.8; LYMPHOCYTES % (AUTO) 15.6 % (13-45); MEAN CORPUSCULAR HEMOGLOBIN 26.6 pg (27.0-33.4); MEAN CORPUSCULAR HGB CONC 32.3 g/dL (32.0-36.0); MEAN CORPUSCULAR VOLUME 82 fl (80-97); MONOCYTES % (AUTO) 17.5 % (3-13); RED BLOOD COUNT 2.98 10^6/uL (4.35-5.55); RED CELL DISTRIBUTION WIDTH 18.5 % (11.5-14.0); WHITE BLOOD COUNT 5.2 10^3/uL (4.0-10.5)
[2016-09-18 21:23] LABS: HEMOGLOBIN 7.9 g/dL (13.5-17.0)
[2016-09-18 21:25] LABS: PROTHROMBIN TIME 29.6 SEC (11.4-15.4)
[2016-09-18 21:26] LABS: PARTIAL THROMBOPLASTIN TIME 50.3 SEC (23.5-35.8)
--- NOTE | 2016-09-18 22:00 | ER Document Report ---
ED General - General Chief Complaint: Abnormal Lab Results Stated Complaint: LOW BLOOD COUNT Time Seen by Provider: 09/18/16 20:53 Cannot obtain history due to: Dementia Notes: Patient is a 76 year old male a history of nonischemic cardiomyopathy with an ejection fraction of 15%, recent right knee arthroplasty found to have a septic knee and currently on IV antibiotics, who presents with concerns of anemia obtained on routine labs at his nursing facility. Patient himself is profoundly demented and does not provide meaningful history. In the bedside states that apparently patient had one large bloody bowel movement yesterday but has not had any since that time. The patient himself denies any complaints at this time. Family states that they are transitioning the patient to hospice care and are clear to mention at the outset of our visit that they do not want any aggressive interventions today. TRAVEL OUTSIDE OF THE [place] IN LAST 30 DAYS: No - Related Data Allergies/Adverse Reactions: lorazepam [From Ativan] Adverse Reaction (Verified 09/18/16 20:43) Past Medical History - General Information source: Relative - Social History Smoking Status: Former Smoker Frequency of alcohol use: None Drug Abuse: None Lives with: Group Home Family History: CAD, COPD - Past Medical History Cardiac Medical History: Reports: Hx Atrial Fibrillation, Hx Congestive Heart Failure, Hx Coronary Artery Disease, Hx Hypercholesterolemia, Hx Hypertension Denies: Hx Heart Attack, Hx Peripheral Vascular Disease, Hx Pulmonary Embolism, Hx Heart Murmur Pulmonary Medical History: Reports: Hx Bronchitis, Hx COPD, Hx Pneumonia Denies: Hx Asthma, Hx Respiratory Failure, Hx Sleep Apnea, Hx Tuberculosis Neurological Medical History: Reports: Hx Seizures - Last time 3 to 4 yrs ago. Denies: Hx Cerebrovascular Accident Endocrine Medical History: Reports: Hx Diabetes Mellitus Type 2 - Diet controlled Renal/ Medical History: Reports: Hx Benign Prostatic Hyperplasia. Denies: Hx Peritoneal Dialysis Malignancy Medical History: Denies Hx Lung Cancer GI Medical History: Reports: Hx Gastroesophageal Reflux Disease, Hx Ulcer - age 30. Denies: Hx Crohn's Disease, Hx Hiatal Hernia, Hx Irritable Bowel, Hx Liver Failure Musculoskeltal Medical History: Reports Hx Arthritis - All over, Denies Hx Fibromyalgia, Denies Hx Multiple Sclerosis, Denies Hx Muscular Dystrophy Psychiatric Medical History: Reports: Hx Dementia Denies: Hx Bipolar Disorder, Hx Depression, Hx Post Traumatic Stress Disorder , Hx Schizophrenia Traumatic Medical History: Denies: Hx Fractures Infectious Medical History: Denies: Hx HIV Past Surgical History: Reports: Hx Adenoidectomy, Hx Cardiac Surgery - pacemaker defibulator, Hx Internal Defibrillator, Hx Orthopedic Surgery - right knee February 2011, left hip, Hx Pacemaker - See Pacemaker Checklist, Hx Tonsillectomy. Denies: Hx Appendectomy, Hx Bowel Surgery, Hx Cholecystectomy, Hx Colostomy, Hx Coronary Artery Bypass Graft, Hx Gastric Bypass Surgery, Hx Herniorrhaphy - Immunizations Hx Diphtheria, Pertussis, Tetanus Vaccination: No Hx Pneumococcal Vaccination: 11/22/14 Review of Systems - Review of Systems Notes: Constitutional: Negative for fever. HENT: Negative for sore throat. Eyes: Negative for visual changes. Cardiovascular: Negative for chest pain. Respiratory: Negative for shortness of breath. Gastrointestinal: Negative for abdominal pain, positive for hematochezia Genitourinary: Negative for dysuria. Musculoskeletal: Negative for back pain. Skin: Negative for rash. Neurological: Negative for headaches, weakness or numbness. 10 point ROS negative except as marked above and in HPI. Physical Exam - Vital signs Vitals: BP 82/48 L 09/18/16 20:16 Interpretation: Hypotensive - Family reports low systolics in the 80s are normal for this patient Notes: PHYSICAL EXAMINATION: GENERAL: Chronically ill in appearance, disheveled but in no acute distress HEAD: Atraumatic, normocephalic. EYES: Pupils equal round and reactive to light, extraocular movements intact, sclera anicteric, conjunctiva are normal. ENT: nares patent, oropharynx clear without exudates. Dry mucous membranes. NECK: Normal range of motion, supple without lymphadenopathy LUNGS: Breath sounds clear to auscultation bilaterally and equal. No wheezes rales or rhonchi. HEART: Regular rate and rhythm without murmurs ABDOMEN: Soft, nontender, normoactive bowel sounds. No guarding, no rebound. No masses appreciated. Rectal: Brown stool, no gross blood EXTREMITIES: The right leg is in an immobilizer, otherwise unremarkable exam NEUROLOGICAL: No focal neurological deficits. Moves all extremities spontaneously and on command. PSYCH: N oriented to person only SKIN: Warm, Dry, normal turgor, no rashes or lesions noted. Course - Re-evaluation Re-evalutation: 09/18/16 22:03 Patient presents with a episode of bright red blood per rectum yesterday although none since concerns of a hemoglobin of 7.3. The patient himself is on able to provide any meaningful history and family reports that they are planning to move to hospice care given patient's incorrectly complex and progressively worsening medical conditions including nonischemic cardiac myopathy with an ejection fraction of 15%, a septic right knee joint in the setting of a total knee arthroplasty, currently receiving IV antibiotics, as well as chronic deconditioning. The family is adamant that they would not want the patient admitted to the hospital or to proceed with any kind of intervention including colonoscopy or endoscopy. They are agreeable to a single unit of blood and then transfer back to the nursing facility. Family also notes the patient has severe hypertension at baseline typically with systolics in the low 80s 09/19/16 01:06 Patient has tolerated blood transfusion without difficulty, remains at his baseline and will be discharged. - Vital Signs Vital signs: Temp Pulse Resp BP Pulse Ox 97.8 F 75 13 92/68 L 93 09/18/16 22:45 09/18/16 22:42 09/19/16 00:45 09/19/16 00:41 09/19/16 00:45 - Laboratory Result Diagrams: 09/18/16 20:26 09/18/16 20:26 Laboratory results interpreted by me: 09/18/16 09/18/16 09/18/16 20:26 20:26 20:26 RBC 2.98 L Hgb 7.9 L Hct 24.5 L MCH 26.6 L RDW 18.5 H Monocytes % 17.5 H Basophils % 3.3 H PT 29.6 H APTT 50.3 H Sodium 125.7 L Chloride 89 L BUN 32 H Creatinine 1.49 H Est GFR ( Amer) 56 L Est GFR (Non-Af Amer) 46 L Calcium 7.5 L Total Bilirubin 3.8 H Direct Bilirubin 2.8 H ALT 18 L Alkaline Phosphatase 132 H Total Protein 5.7 L Albumin 2.3 L Crossmatch 09/18/16 20:51 RBC Hgb Hct MCH RDW Monocytes % Basophils % PT APTT Sodium Chloride BUN Creatinine Est GFR ( Amer) Est GFR (Non-Af Amer) Calcium Total Bilirubin Direct Bilirubin ALT Alkaline Phosphatase Total Protein Albumin Crossmatch See Detail Discharge - 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 Please return for any additional concerns you may have.
[2016-09-19 02:04] VITALS: BP 83/54
== END 2016-09-19 02:49 ==
LOC: ER 20:10
DX: K62.5 Hemorrhage of anus and rectum (principal); D50.0 Iron deficiency anemia secondary to blood loss (chronic); A41.9 Sepsis, unspecified organism; I42.9 Cardiomyopathy, unspecified; I95.9 Hypotension, unspecified; Z79.01 Long term (current) use of anticoagulants; T81.4XXA Infection following a procedure, initial encounter; M00.9 Pyogenic arthritis, unspecified; Y83.8 Other surgical procedures as the cause of abnormal reaction of the patient, or of later complication, without mention of misadventure at the time of the procedure
CPT/HCPCS: 99285; 96374; 86900; 86901; 36415; 36430; 86850; 85025; 85610; 85730; 82272; 80053; 86920; P9016; J1940

== ENCOUNTER 2016-09-20 08:32 | Inpatient (IN) | payer MEDICARE ==
--- NOTE | 2016-09-20 08:45 | ER Document Report ---
ED General - General Stated Complaint: PICC LINE PROBLEM Time Seen by Provider: 09/20/16 08:34 Mode of Arrival: Medic Information source: Emergency Med Personnel, [facility] Records Cannot obtain history due to: Dementia Notes: 76-year-old male presents from care facility where he is receiving IV antibiotics for what appears to be is a knee infection. Patient otherwise is mildly altered unable to provide any further information TRAVEL OUTSIDE OF THE [place] IN LAST 30 DAYS: No - HPI Onset: Just prior to arrival - IV access was pulled just prior to arrival Onset/Duration: Sudden Quality of pain: No pain Severity: None Pain Level: Denies Associated symptoms: None Exacerbated by: Denies Relieved by: Denies Similar symptoms previously: Yes Recently seen / treated by doctor: Yes - Related Data Allergies/Adverse Reactions: lorazepam [From Ativan] Adverse Reaction (Verified 09/18/16 20:43) Home Medications: Current Home Medications Budesonide/Formoterol Fumarate [Symbicort Hfa 160-4.5 Mcg Inhaler 6 gm] 2 puff IH Q12 09/20/16 [History] Bumetanide [Bumex 2 mg Tablet] 2 mg PO BID 09/20/16 [History] Hydrocodone/Acetaminophen [[place] 5-325 mg Tablet] 1 tab PO Q6HP PRN 09/20/16 [ History] Rifampin [Rifadin 300 Mg Capsule] 600 mg PO DAILY 09/20/16 [History] Tiotropium [place] [Spiriva Handihaler 18 mcg/dose (30 Dose)] 1 cap IH DAILY [History] Vancomycin/0.9 % Sod Chloride [Vancomycin 1 G/200Ml-0.9% NaCl] 1 gm IV Q2DAYS [History] Warfarin Sodium [Coumadin 5 mg Tablet] 5 mg PO DAILY 09/20/16 [History] Past Medical History - Social History Smoking Status: Never Smoker Cigarette use (# per day): No Chew tobacco use (# tins/day): No Smoking Education Provided: No Family History: CAD, COPD - Past Medical History Cardiac Medical History: Reports: Hx Atrial Fibrillation, Hx Congestive Heart Failure, Hx Coronary Artery Disease, Hx Hypercholesterolemia, Hx Hypertension Denies: Hx Heart Attack, Hx Peripheral Vascular Disease, Hx Pulmonary Embolism, Hx Heart Murmur Pulmonary Medical History: Reports: Hx Bronchitis, Hx COPD, Hx Pneumonia Denies: Hx Asthma, Hx Respiratory Failure, Hx Sleep Apnea, Hx Tuberculosis Neurological Medical History: Reports: Hx Seizures - Last time 3 to 4 yrs ago. Denies: Hx Cerebrovascular Accident Endocrine Medical History: Reports: Hx Diabetes Mellitus Type 2 - Diet controlled Renal/ Medical History: Reports: Hx Benign Prostatic Hyperplasia. Denies: Hx Peritoneal Dialysis Malignancy Medical History: Denies Hx Lung Cancer GI Medical History: Reports: Hx Gastroesophageal Reflux Disease, Hx Ulcer - age 30. Denies: Hx Crohn's Disease, Hx Hiatal Hernia, Hx Irritable Bowel, Hx Liver Failure Musculoskeltal Medical History: Reports Hx Arthritis - All over, Denies Hx Fibromyalgia, Denies Hx Multiple Sclerosis, Denies Hx Muscular Dystrophy Psychiatric Medical History: Reports: Hx Dementia Denies: Hx Bipolar Disorder, Hx Depression, Hx Post Traumatic Stress Disorder , Hx Schizophrenia Traumatic Medical History: Denies: Hx Fractures Infectious Medical History: Denies: Hx HIV Past Surgical History: Reports: Hx Adenoidectomy, Hx Cardiac Surgery - pacemaker defibulator, Hx Internal Defibrillator, Hx Orthopedic Surgery - right knee February 2011, left hip, Hx Pacemaker - See Pacemaker Checklist, Hx Tonsillectomy. Denies: Hx Appendectomy, Hx Bowel Surgery, Hx Cholecystectomy, Hx Colostomy, Hx Coronary Artery Bypass Graft, Hx Gastric Bypass Surgery, Hx Herniorrhaphy - Immunizations Hx Diphtheria, Pertussis, Tetanus Vaccination: No Hx Pneumococcal Vaccination: 11/22/14 Review of Systems - Review of Systems Notes: REVIEW OF SYSTEMS: Patient unable to provide any information due to dementia and altered mental status ALL OTHER SYSTEMS REVIEWED AND NEGATIVE. Dictation was performed using [employer] voice recognition software PHYSICAL EXAMINATION: GENERAL: Chronically ill-appearing male no acute distress HEAD: Atraumatic, normocephalic. EYES: Pupils equal round and reactive to light, extraocular movements intact, sclera anicteric, conjunctiva are normal. ENT: Nares patent, oropharynx clear without exudates. Moist mucous membranes. NECK: Normal range of motion, supple without lymphadenopathy LUNGS: Breath sounds clear to auscultation bilaterally and equal. No wheezes rales or rhonchi. Upper airway wheezing noted HEART: Regular rate and rhythm without murmurs ABDOMEN: Soft, nontender, nondistended abdomen. No guarding, no rebound. No masses appreciated. Musculoskeletal: Right knee in immobilizer NEUROLOGICAL: GCS is 12, patient is able to open his eyes when spoken to but appears confused SKIN: Erythema of the left mid styles to ankle region Physical Exam - Vital signs Vitals: Temp Pulse Resp BP Pulse Ox 97.3 F 67 20 97/33 L 97 09/20/16 08:35 09/20/16 08:35 09/20/16 08:35 09/20/16 08:35 09/20/16 08:35 Course - Re-evaluation Re-evalutation: 09/20/16 08:47 I spoke with patient's , I explained patient's presentation, she wishes to only have an IV placed and for patient to be sent back to care facility I will abide by her wishes Previous note states the patient is being transitioned to hospice and I believe this is appropriate care 09/20/16 09:54 Patient's x-ray is consistent with pneumonia. I contacted the again she would like treatment at this time. I will admit the patient to the hospitalist service and start him on antibiotics 09/20/16 11:18 09/20/16 11:22 labs note mild renal insufficency, will admit - Vital Signs Vital signs: Temp Pulse Resp BP Pulse Ox 97.3 F 67 20 97/33 L 97 09/20/16 08:35 09/20/16 08:35 09/20/16 08:35 09/20/16 08:35 09/20/16 08:35 - Laboratory Result Diagrams: 09/20/16 10:50 09/20/16 10:50 Laboratory results interpreted by me: 09/20/16 09/20/16 10:50 10:50 RBC 3.47 L Hgb 9.4 L Hct 29.3 L RDW 18.9 H Monocytes % 13.3 H Eosinophils % 6.3 H Sodium 128.2 L Chloride 90 L BUN 29 H Creatinine 1.55 H Est GFR ( Amer) 53 L Est GFR (Non-Af Amer) 44 L Calcium 8.2 L Total Bilirubin 3.5 H Direct Bilirubin 2.7 H Alkaline Phosphatase 148 H Total Protein 5.9 L Albumin 2.5 L - Diagnostic Test Radiology reviewed: Image reviewed, Reports reviewed - EKG Interpretation by Me EKG shows normal: Sinus rhythm, [place], Intervals, QRS Complexes Discharge - Discharge Clinical Impression: Acute systolic CHF (congestive heart failure) ARF (acute renal failure) Qualifiers: Acute renal failure type: unspecified Qualified Code(s): N17.9 - Acute kidney failure, unspecified Hypotension Qualifiers: Hypotension type: unspecified hypotension type Qualified Code(s): I95.9 - Hypotension, unspecified Condition: Poor Disposition: ADMITTED INPATIENT Admitting Provider: Hospitalist Unit Admitted: [facility]
--- NOTE | 2016-09-20 09:46 | RADIOLOGY REPORT (SQ) ---
EXAM DESCRIPTION: CHEST SINGLE VIEW COMPLETED DATE/TIME: 09/20/2016 9:25 am REASON FOR STUDY: permacath displacement COMPARISON: 08/18/2016 NUMBER OF VIEWS: One view. TECHNIQUE: Single frontal radiographic image of the chest acquired. LIMITATIONS: None. FINDINGS: LUNGS AND PLEURA: Segmental airspace disease in the right lower lobe and middle lobe. Sma ll right pleural effusion. MEDIASTINUM AND HEART: Stable heart size and mediastinal structures. SUPPORT DEVICES: Stable position of defibrillator. BONY STRUCTURES: No acute findings. HARDWARE: None. OTHER: No other significant finding. IMPRESSION: Right lower lobe pneumonia.
[2016-09-20] MEDS ORDERED: VANCOMYCIN HCL INJ 1000 MG VIAL IV ONE (09:54)
[2016-09-20] MEDS ORDERED: AMPICILLIN SOD/SULBACTAM 3 GM VIAL IV ONE (09:54)
[2016-09-20] MEDS ORDERED: LEVOFLOXACIN 750 MG/D5W RTU 150 ML IV ONE (10:26)
[2016-09-20] MEDS ORDERED: NORMAL SALINE 1000 ML 1,000 ML IV PRN (10:27)
[2016-09-20] MEDS: NORMAL SALINE 1000 ML 1,000 ML IV PRN ×2 (10:50→11:41)
[2016-09-20 10:58] LABS: VENOUS BLOOD HCO3 31.6 mmol/L (20-32); VENOUS BLOOD PCO2 57.2 mmHg (35-63); VENOUS BLOOD PH 7.36 (7.30-7.42)
[2016-09-20 11:01] LABS: ABSOLUTE BASOPHILS # (AUTO) 0.1 10^3/uL (0.0-0.2); ABSOLUTE EOSINOPHILS # (AUTO) 0.4 10^3/uL (0.0-0.6); ABSOLUTE LYMPHOCYTES (AUTO) 0.9 10^3/uL (0.5-4.7); ABSOLUTE MONOCYTES (AUTO) 0.8 10^3/uL (0.1-1.4); EOSINOPHILS % (AUTO) 6.3 % (0-6); HEMATOCRIT 29.3 % (37.9-51.0); HEMOGLOBIN 9.4 g/dL (13.5-17.0); HGB HCT DIFFERENCE -1.1; LYMPHOCYTES % (AUTO) 14.5 % (13-45); MEAN CORPUSCULAR HEMOGLOBIN 27.1 pg (27.0-33.4); MEAN CORPUSCULAR HGB CONC 32.1 g/dL (32.0-36.0); MEAN CORPUSCULAR VOLUME 84 fl (80-97); MONOCYTES % (AUTO) 13.3 % (3-13); RED BLOOD COUNT 3.47 10^6/uL (4.35-5.55); RED CELL DISTRIBUTION WIDTH 18.9 % (11.5-14.0); SEGMENTED NEUTROPHILS % (AUTO) 63.9 % (42-78); WHITE BLOOD COUNT 6.2 10^3/uL (4.0-10.5)
[2016-09-20 11:11] LABS: ALANINE AMINOTRANSFERASE 24 U/L (21-72); ALBUMIN 2.5 g/dL (3.5-5.0); ALKALINE PHOSPHATASE 148 U/L (38-126); ANION GAP 10 (5-19); ASPARTATE AMINO TRANSFERASE 18 U/L (17-59); BILIRUBIN,DIRECT 2.7 mg/dL (0.0-0.4); BILIRUBIN,TOTAL 3.5 mg/dL (0.2-1.3); BLOOD UREA NITROGEN 29 mg/dL (7-20); CALCIUM 8.2 mg/dL (8.4-10.2); CARBON DIOXIDE 28 mmol/L (22-30); CHLORIDE 90 mmol/L (98-107); CREATININE RESULT 1.55 mg/dL (0.52-1.25); GLUCOSE 85 mg/dL (75-110); POTASSIUM 3.7 mmol/L (3.6-5.0); SODIUM 128.2 mmol/L (137-145); TOTAL PROTEIN 5.9 g/dL (6.3-8.2)
[2016-09-20] MEDS ORDERED: FUROSEMIDE INJ/PF 40 MG/4 ML SDV IV ONE (14:00)
[2016-09-20] MEDS ORDERED: MORPHINE SULFATE 10 MG/ML INJ IV ONE (14:00)
[2016-09-20] MEDS ORDERED: HYDROCORTISONE SOD SUCCINATE INJ/PF 250 MG/2 ML SDV IV ONE (15:00)
[2016-09-20] MEDS ORDERED: IPRATROPIUM/ALBUTEROL 0.5-2.5 MG/3 ML AMPUL NEB PRN (15:54)
[2016-09-20] MEDS ORDERED: RIFAMPIN 300 MG CAPSULE PO ONE (17:00)
--- NOTE | 2016-09-20 17:29 | HISTORY AND PHYSICAL E ---
History and Physical NAME: TUTU MURRAY : 1940 AGE: 76Y ADMITTED: 09/20/2016 ROOM: 316 PRIMARY CARE PHYSICIAN: JANET HENAO M.D. OUTPATIENT ORTHOPEDIST: JONATHAN ELLSWORTH M.D./PH.D CODE STATUS: DO NOT RESUSCITATE/DO NOT INTUBATE. CHIEF COMPLAINT: PICC line is coming out. HISTORY OF PRESENT ILLNESS: The patient is an unfortunate 76-year-old male with a past medical history of multiple medical problems. The patient presented to the emergency department with a chief complaint of his PICC line coming out. The patient had been sent to the emergency department from the half-way due to this. The patient had been receiving outpatient antibiotics for septic joint of the right knee. The patient has had multiple significant medical problems and is well known to the hospitalist service due to enterococcal UTIs due to chronic indwelling Blake from urinary retention. The patient also has significant adrenal insufficiency and has had multiple admissions for bacteremia due to the septic joint of the right knee. The patient was just discharged from [facility] on 09/16/2016 after a one-month stay due to the above diagnosis. The patient also has severe heart failure with an EF of 15% to 20% with also diastolic dysfunction. The patient has had a steady decline in his overall health and been placed in a half-way. The patient was actually on a pathway to hospice according to his family; however, once the patient was brought in to the emergency department here an x-ray was obtained to determine the patient's PICC line placement and he was found to have pneumonia. Upon questioning of the , the agreed to have the patient treated for pneumonia; however, his management overall has been conservative, as initially she did not want any labs done at all. Upon my evaluation of the patient, the patient was awake and alert and actually acknowledged that he remembered me from previous admissions. I discussed the patient's overall health status and he stated that he was, "as sick as he could possibly be." I explained to the patient that his blood pressure was quite low, he had an excessive amount of edema and given his presentation, there was concern for a cardiogenic shock. The patient did agree with his previous desire for natural and "no heroics." I told the patient that I would speak with his regarding his overall clinical picture. The patient admitted to a generalized pain especially in his back, and I did explain to the patient with his blood pressures as low as they were, that pain medication could lower these further. The patient directed me, "just make the pain stop." Upon my conversation with the patient's , who is also his surrogate decision maker, she was in agreeance with this assessment. Therefore, the patient's care will be conservative; however, she does want his pneumonia treated as well as his pain managed regardless of the implications to his blood pressure. The following is a summary of recent [facility] stay: On 08/25/2016 the patient underwent removal of the left total knee component with I and D and implantation of antibiotic spacers. The patient is slated to continue 6 weeks of vancomycin and rifampin as per the recommendations of infectious disease. Prior to the patient's discharge blood cultures and knee swab had grown no growth. During the patient's stay he underwent a AMELIE and CT Surgery was consulted for bacterial vegetations of right atrial lead. The family elected to forego removal of the pacemaker/AICD given that it was too great of a risk to the patient and, therefore, felt that the antibiotics for the knee may also treat the lead. The patient was also seen by urology while at [facility]. Given that he had such significant urinary retention and scrotal edema, the Blake placement was quite difficult. On 09/15/2016, cardiology turned off the patient's AICD at the request of the family after meeting with palliative care, and the patient was elected to be a DNR/DNI with hospice to follow up after his course of antibiotics. PAST MEDICAL HISTORY: 1. Septic joint of the right knee. 2. Chronic systolic congestive heart failure with an EF of 15% to 20%. 3. Diastolic dysfunction. 4. Adrenal insufficiency. 5. Recurrent Enterococcus UTIs. 6. Urinary retention with chronic indwelling Blake. 7. Benign prostatic hyperplasia. 8. Chronic atrial fibrillation. 9. Chronic anticoagulation. 10. Chronic obstructive pulmonary disease. 11. Hyperlipidemia. 12. Diabetes mellitus type 2. 13. Seizure disorder. 14. Osteoarthritis. 15. Coronary artery disease. 16. Atrial lead vegetation. PAST SURGICAL HISTORY: 1. Internal AICD. 2. Right knee surgeries. 3. Left hip surgery. 4. Tonsillectomy. ALLERGIES: LORAZEPAM. HOME MEDICATIONS: 1. Tylenol 650 mg p.o. q.4 h. p.r.n. 2. Symbicort HFA 160/4.5 two puff inhalation q.12 h. 3. Bumex 2 mg p.o. b.i.d. 4. Digoxin 0.125 mg p.o. daily. 5. Colace 100 mg p.o. b.i.d. 6. Ferrous sulfate 325 mg p.o. daily. 7. Neurontin 300 mg p.o. q.8 h. 8. Welaka 5/325 one tablet p.o. q.6 h. p.r.n. 9. Cortef 25 mg p.o. q.a.m. 10. DuoNeb 1 neb q.8 h. p.r.n. 11. Midodrine 10 mg p.o. q.8 h. 12. Rifampin 600 mg p.o. q.a.m. 13. Flomax 0.4 mg p.o. b.i.d. 14. Spiriva 18 mcg inhaled daily. 15. Vancomycin 1 gm IV q.48 h., the last dose is due on 10/06/2016. 16. Coumadin 5 mg p.o. daily. SOCIAL HISTORY: The patient currently resides at [facility]. The patient is ; his 's name is Genevieve. She is also the surrogate decision maker, who can reached at [phone]. The patient is retired and does have a significant history of tobacco use, approximately 50 pack years but no history of alcohol abuse or illicit drug use. FAMILY MEDICAL HISTORY: Coronary artery disease and COPD; however, the patient is unable to provide any further specific histories. REVIEW OF SYSTEMS: Review of systems is quite difficult to obtain given the patient's mental status. CONSTITUTIONAL: The patient denies any feelings of fever or chills. The patient admits to shortness of breath and body aches and body pain. The patient admits to frequent bleeding and overall general malaise. The patient was unable to answer a complete review of systems. PHYSICAL EXAMINATION: GENERAL: On examination, the patient is a frail, chronically ill-appearing 76-year-old male who will awaken and answers simple questions, yes or No. He is oriented to person and place, not oriented to time but does have some insight into situation. VITAL SIGNS: Temperature 98.2, pulse 75, respirations 16, blood pressure 82/47, oxygen saturation is 94% on room air. SKIN: Cool, clammy. There is no rash. Multiple areas of bruising. Diffuse redness from the left hip down the right leg. HEENT: Pupils are equal, round, and reactive to light and accommodation. Conjunctivae is pale. Sclerae are not icteric. JVP to the area of the right ear. Tongue is midline. Unable to palpate for lymphadenopathy or thyromegaly given the patient's body habitus. CARDIOVASCULAR: Heart is irregularly irregular. There is no rub. CHEST: The patient does have diffuse crackles and rails all throughout both lung holland, symmetrical and currently labored. ABDOMEN: Nontender, nondistended. Bowel sounds are present. Difficult to palpable for organomegaly given body habitus. GENITOURINARY: Blake is draining yellow urine. BACK: The patient has severe sacral edema with evidence of complete anasarca. EXTREMITIES: Cool with anasarca and edema. Right knee is in an immobilizer. PSYCHIATRIC: Unable to full assess. NEUROLOGIC: Unable to full cooperate for examination. DIAGNOSTICS: Labs are as follows: Hematology obtained on 09/20/2016: WBC 6.2, hemoglobin 9.4, hematocrit 29.3, platelet count is 227,000. Venous blood gas obtained on 09/20/2016: pH 7.36, PCO2 57.2, bicarbonate 31.6. Chemistry obtained on 09/20/2016: Sodium 128, potassium 3.7, chloride 90, carbon dioxide 28, BUN 29, creatinine glucose 85, lactic acid 1.6, calcium 9.2, bilirubin 3.5, AST 18, ALT 24, alk phos 148, total protein 5.9, albumin 2.5. Blood cultures obtained on 09/20/2016: Pending. IMPRESSION AND PLAN: 1. Cardiogenic shock. The patient does have wet and cold profile. The patient does have significant evidence of volume overload including 15 cm JVP as well as third heart sound. The patient could possibly be hypotensive due to this. It may possibly improve with diuresis. The patient is not a candidate for inotropic or pressors given that he is conservative management and overall prognosis is quite poor. Will attempt to diurese the patient and will forego albumin given that the patient's EF is so poor and most likely he will not be able to tolerate the volume that this would give him vascularly. 2. Lmlun-qb-dnkldtk systolic and diastolic congestive heart failure with EF of 15%. As per #1. Monitor sodium. 3. Adrenal insufficiency. The patient may be hypotensive due to this. Will give the patient a dose of Solu-Cortef as well as midodrine. Maybe this will give us some pressure to work with. 4. History of septic joint, right knee joint. Will resume the patient's vancomycin and rifampin as per ID recommendations. These are to continue until October 06, 2016. 5. Displaced PICC line. This only looks to be localized. Will reinforce this and have this reevaluated by interventional radiology in the a.m. and follow. 6. Chronic obstructive pulmonary disease. The patient is oxygenating well at this time. Will follow. 7. Hypertension. The patient is actually hypotensive at this time. Will hold medications. 8. Atrial fibrillation. The patient is currently rate controlled. Will continue to follow. 9. Benign prostatic hyperplasia. Will continue Blake and home medications. 10. Acute renal failure. Most likely due to renal congestion. 11. Hyponatremia. Due to excessive volume. DISPOSITION: The patient is a DO NOT RESUSCITATE/DO NOT INTUBATE with conservative management. Pending patient's symptomatology and diagnostic findings, will evaluate as needed. The patient will be admitted to inpatient IMCU, as the patient's expected length of stay will surpass 2 midnights. Time spent on this admission including assessment, plan, physical examination, patient education, discussion with family and review of tertiary center records is 60 minutes. DICTATING PHYSICIAN: OFELIA GALE NP [id number] PHY#: [id number] ID: [id number] JOB#: [id number] ACCT: [id number] cc:NATALY COOPER M.D., MICHAEL NP > MTDD
[2016-09-20] MEDS: DOCUSATE SODIUM 100 MG CAPSULE PO SCH (17:39)
[2016-09-20] MEDS: VANCOMYCIN HCL 500 MG in DEXTROSE 5%-WATER 100 ML IV SCH (17:40)
[2016-09-20] MEDS ORDERED: PIPERACILLIN SODIUM/TAZOBACTAM 3.375 GM in NORMAL SALINE 100 ML IV SCH (18:00)
[2016-09-20] MEDS: MORPHINE SULFATE 10 MG/ML INJ IV PRN (18:56)
[2016-09-20] MEDS ORDERED: MIDODRINE HCL 5 MG TABLET PO ONE (19:00)
[2016-09-20] MEDS: TAMSULOSIN HCL 0.4 MG CAP.SR.24H PO SCH (21:55)
[2016-09-20] MEDS: GABAPENTIN 300 MG CAPSULE PO SCH (21:55)
[2016-09-21] MEDS: MORPHINE SULFATE 10 MG/ML INJ IV PRN ×3 (00:23→13:28)
[2016-09-21] MEDS: FUROSEMIDE INJ/PF 40 MG/4 ML SDV IV SCH ×4 (02:16→22:02)
[2016-09-21] MEDS: VANCOMYCIN HCL 500 MG in DEXTROSE 5%-WATER 100 ML IV SCH (05:11)
[2016-09-21] MEDS: GABAPENTIN 300 MG CAPSULE PO SCH ×3 (05:40→22:04)
[2016-09-21] MEDS ORDERED: HYDROCORTISONE 10 MG TABLET PO SCH (08:00)
[2016-09-21] MEDS ORDERED: DEXTROSE 5% IV SCH (08:15)
[2016-09-21] MEDS ORDERED: WATER IV SCH (08:15)
[2016-09-21] MEDS ORDERED: VANCOMYCIN HCL IV SCH (08:15)
[2016-09-21] MEDS ORDERED: FUROSEMIDE INJ/PF 40 MG/4 ML SDV IV ONE (08:30)
--- NOTE | 2016-09-21 09:44 | PROGRESS NOTE E ---
Progress Note NAME: TUTU MURRAY : 1940 AGE: 76Y DATE: 09/21/2016 ROOM: 316 SUBJECTIVE: The patient is lying in bed. He will awaken but is not very responsive. He overall appears iller than yesterday. The patient's blood pressures overall have improved some. The patient has not had any episodes of vomiting nor diarrhea. The patient is now unable to take pills at this time. The patient does not appear to be in any pain. I called and discussed the case with the patient's to make her aware of the graveness of the situation and she is tearfully aware of this. At this time the goals are to keep the patient pain free, to treat the pneumonia, and to continue antibiotics. Family is agreeable to replacing the PICC line as this is a way for the patient to receive medication. REVIEW OF SYSTEMS: A full review of systems cannot be appreciated given the patient's mental status. MEDICATIONS: Have been reviewed. OBJECTIVE: GENERAL: The patient is an unfortunate 76-year male who is quite groggy. He appears comfortable at this time though. He appears very weak, chronically ill-appearing, and debilitated. VITAL SIGNS: Temperature 97.7, pulse 75, respirations 16, blood pressure 101/58, oxygen saturation is 95% on 4 L nasal cannula. SKIN: Pale, cool, not currently diaphoretic. HEENT: Pupils are reactive. The patient does have JVP to the level of the right ear but no evidence of periorbital edema. CARDIOVASCULAR: Heart is irregularly irregular. No rub. CHEST: Patient does have rales noted throughout both lung holland. ABDOMEN: Nontender, nondistended, obese. BACK: The patient does have significant sacral edema. EXTREMITIES: The patient does have bilateral pitting edema consistent with anasarca. Immobilizer noted on the right knee. PSYCHIATRIC: Unable to fully assess. DIAGNOSTICS: Labs are as follows: Hematology obtained on 09/20/2016: WBC 6.2, hemoglobin 9.4, hematocrit 29.3, platelet count is 227,000. Chemistry obtained on 09/20/2016: Sodium is 128, potassium 3.7, chloride is 90, carbon dioxide 28, BUN 29, creatinine 1.55, glucose 85, lactic acid is 1.6, calcium is 8.2, bilirubin is 3.5, direct bilirubin is 2.7, AST 18, ALT is 24, alk phos 128, total protein 5.9, albumin 2.5. IMPRESSION AND PLAN: 1. CARDIOGENIC SHOCK. The patient does have a cold and wet profile. Patient has significant JVP. Feel the patient is hypotensive due to volume overload. Will continue to diurese but have forgone albumin. Given the patient's EF is so poor, he will not be able to tolerate that much volume intravascularly. The patient is also hyponatremic. 2. VILEC-IN-FZDEVBV SYSTOLIC AND DIASTOLIC CONGESTIVE HEART FAILURE. The patient has an EF of 15%. Management as per #1. The patient's AICD has been disabled. 3. ADRENAL INSUFFICIENCY. The patient is hypotensive. It could be due to this. The patient is unable to take his oral midodrine. Will transition Solu-Cortef to IV for now. 4. HISTORY OF SEPTIC JOINT OF THE RIGHT KNEE. Have resumed the patient's vancomycin and rifampin as per ID recommendations. These are to continue until October 06, 2016. 5. DISPLACED PICC LINE. Will have Interventional Radiology look at this. 6. CHRONIC OBSTRUCTIVE PULMONARY DISEASE. The patient is oxygenating well at this time. Will continue to follow. 7. HYPERTENSION. The patient is actually hypotensive at this time. Will hold these medications. 8. ATRIAL FIBRILLATION. The patient is currently rate controlled. Will continue medications. 9. BENIGN PROSTATIC HYPERPLASIA. Will continue Blake. 10. ACUTE RENAL FAILURE MOST LIKELY DUE TO RENAL CONGESTION FROM HIS HEART FAILURE. 11. HYPONATREMIA. This is due to excessive volume. DISPOSITION: The patient is a DO NOT RESUSCITATE/DO NOT INTUBATE with conservative management only. The patient is comfort care other than IV antibiotics and diuretics. Pending patient's symptomatology and diagnostic findings, will reevaluate as needed. Have spoken with the patient's regarding this. Will have palliative care to help this patient transition over to hospice. Time spent on this followup including assessment, plan, physical examination, attempt at patient education, discussion with the patient's family is 45 minutes. DICTATING PHYSICIAN: OFELIA GALE NP [id number] [id number] PHY#: [id number] ID: [id number] JOB#: [id number] ACCT: [id number] cc: >
[2016-09-21] MEDS ORDERED: ENOXAPARIN SODIUM INJ 40 MG/0.4 ML DISP.SYRIN SUBCUT SCH (10:00)
[2016-09-21] MEDS: HYDROCORTISONE SOD SUCCINATE INJ/PF 100 MG/2 ML SDV IV SCH ×2 (13:27→18:54)
[2016-09-21] MEDS: RIFAMPIN 300 MG CAPSULE PO SCH (13:30)
[2016-09-21] MEDS: DOCUSATE SODIUM 100 MG CAPSULE PO SCH ×2 (13:30→18:38)
[2016-09-21] MEDS: TAMSULOSIN HCL 0.4 MG CAP.SR.24H PO SCH ×2 (13:30→22:04)
[2016-09-21] MEDS: DIGOXIN 0.125 MG TABLET PO SCH (13:30)
--- NOTE | 2016-09-21 16:14 | TRANSFER SUMMARY E ---
Transfer Summary NAME: TUTU MURRAY : 1940 AGE: 76Y ADMITTED: 09/20/2016 TRANSFERRED: 09/24/2016 CODE STATUS: DO NOT RESUSCITATE/DO NOT INTUBATE with comfort care measures. PRIMARY CARE PROVIDER: [facility] DIAGNOSES: 1. Cardiogenic shock. 2. Otwmk-qy-rtkxdjm systolic and diastolic congestive heart failure. 3. Adrenal insufficiency. 4. Septic joint of the right knee. 5. Recently removed left knee hardware. 6. Chronic obstructive pulmonary disease. 7. Hypertension. 8. Atrial fibrillation. 9. Benign prostatic hyperplasia. 10. Xapcb-eb-sporptw kidney disease stage III. 11. Hypotension. 12. Vegetation on the patient's right atrial lead. 13. General debility. MEDICATIONS: As per hospice. DIET: As tolerated. ACTIVITY: As tolerated. DIAGNOSTICS: Labs are as follows: Hematology obtained on 09/20/2016: WBCs are 6.2, hemoglobin is 9.4, hematocrit is 29.3, platelet count is 223,000. Venous blood gas obtained on 09/20/2016: The pH is 7.36, pCO2 is 52.7, bicarb is 31.6. Chemistry obtained on 09/20/2016: Sodium is 128, potassium 3.7, chloride is 90, carbon dioxide 28, BUN 29, creatinine 1.55, glucose 85, lactic acid is 1.6, calcium is 8.2, bilirubin is 3.5, AST 18, ALT is 24, alk phos 148, total protein 5.9, albumin 2.5. Microbiology: Blood cultures obtained on 09/20/2016 reveal no growth. Chest x-ray obtained on 09/20/2016 reveals right lower lobe pneumonia. HISTORY OF PRESENT ILLNESS: The patient is an unfortunate 76-year-old male with a past medical history that includes multiple medical problems. The patient presented to the emergency department with a chief complaint of tunneled PICC line in his right subclavian had come out some. The patient was sent to the emergency department from the [facility] due to this. The patient had been receiving outpatient antibiotics for a septic joint in the right knee. The patient who has multiple significant medical problems is well known to the hospitalist service due to Enterococcal UTIs from his chronic indwelling Blake, urinary retention as well as severe cardiomyopathy and adrenal insufficiency and multiples admissions for bacteremia. This patient was just discharged from [facility] on 09/16/2016 after a one-month stay due to the above diagnoses. The patient does have severe heart failure with an EF of 15-20% with also diastolic dysfunction. The patient's AICD has been disabled and was done by palliative care at [facility]. The patient has had a steady decline in his overall health and had been placed in a [facility] and the patient was on a pathway to hospice according to the family, however, due to him wanting antibiotics it was deferred until completion of this treatment. Once the patient was brought into the emergency department, x-ray was obtained to determine the PICC lines placement and was found to have pneumonia. Upon questioning the , the agreed to have the patient treated for pneumonia and for his management to be conservative. Upon evaluation of the patient, he was alert and awake and stated that he knew he was very ill. The patient was aware that his overall prognosis was quite poor, however, the patient was concerned for pain and did not want to hurt. The patient realized that opiates may decrease his blood pressure and the patient was okay with this as he wanted to be kept comfortable. Spoke with the patient's on 2 separate occasions. She is aware the patient's prognosis is quite poor and has elected to proceed with placement [facility] [place]. The following is a summary from the recent [facility] stay. On 08/25/2016, the patient underwent removal of the left total knee replacement component, I and D and implantation of antibiotic spacers. The patient was slated to continue 6 weeks of vancomycin and rifampin at the recommendations of Infectious Disease. The patient's discharge blood cultures and knee swab revealed no growth. However, due to persistent fever the patient underwent a AMELIE and CT Surgery was consulted due to bacterial vegetations of the right atrial lead. The family and patient elected to forego removal of the AICD given that the risk was too great to the patient and, therefore, felt IV antibiotics would be more conservative. During his stay, he was also seen by Urology due to his urinary retention and scrotal edema. The patient had a Blake placed which was quite difficult. On 09/15/2016, Cardiology turned off the patient's AICD at the request of the family and palliative care. The patient was discharged with pathway to hospice after his antibiotics were completed. HOSPITAL COURSE: The patient was admitted to [facility]. The patient was found to be in excessive volume overload with a cold and wet profile consistent with cardiogenic shock. The patient was aggressively hydrated. The patient was given IV steroids for his adrenal insufficiency as well. The patient was also resumed on antibiotics. After discussions with the , she realized that the patient had developed pneumonia in spite of being on antibiotic therapy and the patient's care has been conservative. PHYSICAL EXAMINATION: GENERAL: On examination, the patient is a frail, chronically ill-appearing, debilitated 76-year-old male who will awaken but he is not fully oriented. He appears comfortable at this time. VITAL SIGNS: Temperature is 97.9, pulse 70, respirations 20, blood pressure 91/73, oxygen saturation is 91% on 4 L nasal cannula. SKIN: Cool, pale. He is dry at this time. HEENT: Pupils are reactive. Conjunctivae are pale. He does have some periorbital edema. JVP is at the level of the right ear. CARDIOVASCULAR: Heart is irregularly irregular. No rub. CHEST: The patient has bilateral rales throughout both lung holland. ABDOMEN: Soft. No area of focal tenderness. BACK: The patient does have significant sacral edema. EXTREMITIES: Diffuse edema suggestive of anasarca. PSYCHIATRIC: Unable to fully assess. TRANSFER PLANNING: The patient will be received to [facility] [place] [facility]. Time spent on this transfer including assessment, plan, physical examination, attempt at patient education, and resource alignment is 35 minutes. DICTATING PHYSICIAN: OFELIA GALE NP [id number] Y#: [id number] ID: [id number] JOB#: [id number] ACCT: [id number] cc:OFELIA GALE NP > MTDD
--- NOTE | 2016-09-21 22:19 | Palliative Consultation Report ---
Consultation From:: FABRICE MCCLURE Consult Reason: Palliaitve Care consult - HPI HPI: Palliative Care consult visit 11:40- 12:15 09/21/16 Appreciate consult request with this very unfortunate 76 year old man who has had a very difficult course over the past year. He now is suffering with sepsis, possible infection of his AICD, and much pain in his knee. The infection probably started in his knee prosthesis and he spent a long time in the hospital before SNF receiving IV antiiotics. He has severe edema of all of his extremities now with other signs of generalized system failure. At the time of my visit, he was sound asleep and I did not awaken him. However, I had seen him at [facility] last week and he told me he was having a lot of pain, but otherwise was confused and speech was slurred and weak. I was glad to see him comfortable now. I spoke with his for a while, she is happy that he is to be transferred to [facility] and have hospice. She wants him just to have comfort care. She realizes she will not be able to visit as often, but he is not in any shape to really enjoy her visits and it hurts her to see him like he is. She wanted him to have hospice at [place], but this will be good to assure his comfort. Mrs. Valadez says it has been very hard to watch his dramatic declinein the past many months as he has always been such a strong and independent man. Onset/Duration: Gradual Past Medical History(Consults) - General Information Source: Relative, [facility] Records Home Medications: Acetaminophen [Tylenol 325 mg Tablet] 650 mg PO Q4HP PRN 08/19/16 Digoxin [Lanoxin 0.125 mg Tablet] 0.125 mg PO DAILY 08/19/16 Docusate Sodium [Colace 100 mg Capsule] 100 mg PO BID 08/19/16 Ferrous Sulfate [Iron] 325 mg PO DAILY 08/19/16 Gabapentin [Neurontin 300 mg Capsule] 300 mg PO Q8 08/19/16 Hydrocortisone [Cortef 10 Mg Tablet] 25 mg PO QAM 08/19/16 Ipratropium/Albuterol Sulfate [Duoneb 3 ml Ampul] 3 ml NEB RTQ8HP PRN 08/19/16 Midodrine HCl 10 mg PO Q8 08/19/16 Tamsulosin HCl [Flomax 0.4 mg Cap.sr] 0.4 mg PO BID 08/19/16 Budesonide/Formoterol Fumarate [Symbicort Hfa 160-4.5 Mcg Inhaler 6 gm] 2 puff IH Q12 09/20/16 Bumetanide [Bumex 2 mg Tablet] 2 mg PO BID 09/20/16 Hydrocodone/Acetaminophen [[place] 5-325 mg Tablet] 1 tab PO Q6HP PRN 09/20/16 Rifampin [Rifadin 300 Mg Capsule] 600 mg PO DAILY 09/20/16 Tiotropium [place] [Spiriva Handihaler 18 mcg/dose (30 Dose)] 1 cap IH DAILY Vancomycin/0.9 % Sod Chloride [Vancomycin 1 G/200Ml-0.9% NaCl] 1 gm IV Q2DAYS Warfarin Sodium [Coumadin 5 mg Tablet] 5 mg PO DAILY 09/20/16 Allergies/Adverse Reactions: lorazepam [From Ativan] Adverse Reaction (Verified 09/18/16 20:43) - Social History Lives with: [facility] Family History: CAD, COPD Parental Family History Reviewed: No Children Family History Reviewed: No Sibling(s) Family History Reviewed.: No Smoking Status: Former Smoker Frequency of Alcohol Use: None Hx Recreational Drug Use: No Drugs: None, Ecstasy Hx Prescription Drug Abuse: No - Past Medical History Cardiac Medical History: Reports: Hx Atrial Fibrillation, Hx Congestive Heart Failure, Hx Coronary Artery Disease, Hx Hypercholesterolemia, Hx Hypertension Denies: Hx Heart Attack, Hx Peripheral Vascular Disease, Hx Pulmonary Embolism, Hx Heart Murmur Pulmonary Medical History: Reports: Hx Bronchitis, Hx COPD, Hx Pneumonia Denies: Hx Asthma, Hx Respiratory Failure, Hx Sleep Apnea, Hx Tuberculosis Neurological Medical History: Reports: Hx Seizures - Last time 3 to 4 yrs ago. Denies: Hx Cerebrovascular Accident Endocrine Medical History: Reports: Hx Diabetes Mellitus Type 2 - Diet controlled Renal/ Medical History: Reports: Hx Benign Prostatic Hyperplasia. Denies: Hx Peritoneal Dialysis Malignancy Medical History: Denies Hx Lung Cancer GI Medical History: Reports: Hx Gastroesophageal Reflux Disease, Hx Ulcer - age 30. Denies: Hx Crohn's Disease, Hx Hiatal Hernia, Hx Irritable Bowel, Hx Liver Failure Musculoskeltal Medical History: Reports Hx Arthritis - All over, Denies Hx Fibromyalgia, Denies Hx Multiple Sclerosis, Denies Hx Muscular Dystrophy Psychiatric Medical History: Reports: Hx Dementia Denies: Hx Bipolar Disorder, Hx Depression, Hx Post Traumatic Stress Disorder , Hx Schizophrenia Traumatic Medical History: Denies: Hx Fractures Infectious Medical History: Denies: Hx HIV Hematology: Reports: Anemia - Surgical History Past Surgical History: Reports: Hx Adenoidectomy, Hx Cardiac Surgery - pacemaker defibulator, Hx Internal Defibrillator, Hx Orthopedic Surgery - right knee February 2011, left hip, Hx Pacemaker - See Pacemaker Checklist, Hx Tonsillectomy. Denies: Hx Appendectomy, Hx Bowel Surgery, Hx Cholecystectomy, Hx Colostomy, Hx Coronary Artery Bypass Graft, Hx Gastric Bypass Surgery, Hx Herniorrhaphy Review of systems ROS unobtainable: due to mental statu Ojective:Exam Vital Signs: Temp Pulse Resp BP Pulse Ox 97.4 F 69 20 91/49 L 100 09/21/16 16:00 09/21/16 16:00 09/21/16 16:00 09/21/16 16:00 09/21/16 16:00 Intake & Output 09/20/16 09/21/16 09/22/16 06:59 06:59 06:59 Intake Total 1044 20 Output Total 450 50 Balance 594 -30 Weight 86.183 kg - General General Appearance: Sedated In distress: None - Respiratory Respiratory Status: No respiratory distress - Cardiovascular Rhythm: Irregularly irregular Pulses: Normal: Radial - Extremities Upper extremity: Edema Lower extremities: Tender, Edema Plan and Recommendation Plan and Recommendation: Patient is to be transferred to [facility] tomorrow. I completed [place] DNR form for travel. Discussed this transfer with his and offered support. Patient is comfortable now that he is here in hospital receiving pain meds. He appears to be transitioning towards and his is aware of this. She and family members want him to be kept comfortable and treated respectfully. Encouraged Mrs. Valadez to call me if she has any concerns or needs to talk. She is aware that he is near and states her family is prepared. - Time Spent with Patient Time spent with patient: 15 to 30 Minutes Time: Total time with chart review, discussion with , consultaiton: 45 min
[2016-09-22] MEDS: HYDROCORTISONE SOD SUCCINATE INJ/PF 100 MG/2 ML SDV IV SCH ×3 (01:36→17:29)
--- NOTE | 2016-09-22 05:37 | RADIOLOGY REPORT (SQ) ---
EXAM DESCRIPTION: CHEST SINGLE VIEW COMPLETED DATE/TIME: 09/22/2016 5:24 am REASON FOR STUDY: retained PICC line?? COMPARISON: 09/20/2016. EXAM PARAMETERS: NUMBER OF VIEWS: One view. TECHNIQUE: Single frontal radiographic view of the chest acquired. RADIATION DOSE: NA LIMITATIONS: As below. FINDINGS: LUNGS AND PLEURA: Moderate opacity -effusion of the right lower hemithorax. Bilateral cos tophrenic angles minimally clipped off the image. Mild interstitial markings. MEDIASTINUM AND HILAR STRUCTURES: No masses. Contour normal. HEART AND VASCULAR STRUCTURES: Prominent cardiac silhouette. Atherosclerosis. BONES: No acute findings. HARDWARE: Left cardiac stimulation device and leads. No PICC line components discerned, as queried. OTHER: No other significant finding. IMPRESSION: No significant interval change.No PICC line components discerned, as queried. TECHNICAL DOCUMENTATION: JOB ID: [id number]
[2016-09-22] MEDS: FUROSEMIDE INJ/PF 40 MG/4 ML SDV IV SCH ×3 (06:09→22:03)
[2016-09-22] MEDS: GABAPENTIN 300 MG CAPSULE PO SCH ×3 (06:10→22:05)
[2016-09-22] MEDS: MIDODRINE HCL 5 MG TABLET PO SCH ×2 (06:10→13:46)
[2016-09-22] MEDS: MORPHINE SULFATE 10 MG/ML INJ IV PRN ×2 (07:58→15:51)
[2016-09-22] MEDS: DIGOXIN 0.125 MG TABLET PO SCH (08:00)
[2016-09-22] MEDS ORDERED: VANCOMYCIN HCL 1,500 MG in DEXTROSE 5%-WATER 250 ML IV SCH (08:00)
[2016-09-22] MEDS: RIFAMPIN 300 MG CAPSULE PO SCH (08:01)
[2016-09-22] MEDS: TAMSULOSIN HCL 0.4 MG CAP.SR.24H PO SCH ×2 (08:02→22:05)
[2016-09-22] MEDS: DOCUSATE SODIUM 100 MG CAPSULE PO SCH ×2 (08:03→17:29)
[2016-09-22] MEDS ORDERED: SOD CHLORIDE IV SCH (10:00)
[2016-09-22] MEDS ORDERED: [UNRECOGNIZED DRUG - OTHER] IV SCH (10:00)
[2016-09-22] MEDS ORDERED: VANCOMYCIN IV SCH (10:00)
[2016-09-22] MEDS ORDERED: VANCOMYCIN HCL 1,000 MG in DEXTROSE 5%-WATER 250 ML IV SCH (16:30)
[2016-09-23] MEDS: HYDROCORTISONE SOD SUCCINATE INJ/PF 100 MG/2 ML SDV IV SCH ×2 (03:57→10:26)
[2016-09-23] MEDS: GABAPENTIN 300 MG CAPSULE PO SCH ×3 (06:03→22:14)
[2016-09-23] MEDS: FUROSEMIDE INJ/PF 40 MG/4 ML SDV IV SCH (06:03)
[2016-09-23] MEDS: DIGOXIN 0.125 MG TABLET PO SCH (10:14)
[2016-09-23] MEDS: DOCUSATE SODIUM 100 MG CAPSULE PO SCH ×2 (10:16→19:05)
[2016-09-23] MEDS: RIFAMPIN 300 MG CAPSULE PO SCH (10:17)
[2016-09-23] MEDS: TAMSULOSIN HCL 0.4 MG CAP.SR.24H PO SCH ×2 (10:19→22:14)
[2016-09-23] MEDS ORDERED: OXYCODONE HCL IR 5 MG TABLET PO PRN (10:27)
--- NOTE | 2016-09-23 11:58 | PROGRESS NOTE E ---
Progress Note NAME: TUTU MURRAY : 1940 AGE: 76Y DATE: 09/22/2016 ROOM: 316 SUBJECTIVE: The patient is lying in bed. He is a little bit more awake and alert. His PICC line has been removed. The patient is awaiting placement at the [place] [facility]. He has been accepted, awaiting transport to be arranged. The patient does not voice any concerns at this time; however, review of systems is impossible to obtain. MEDICATIONS: Have been reviewed. OBJECTIVE: GENERAL: The patient is a 76-year male who is awake and alert but not fully oriented. He does not appear to be in any acute distress. VITAL SIGNS: Temperature 97.5, pulse 85, respirations 23, blood pressure 91/56, oxygen saturation is 91% on 2 L nasal cannula. SKIN: Cool, pale. He is no longer diaphoretic. HEENT: Pupils are reactive. Conjunctivae is pale. He does have JVP to the level of the right clavicle. CARDIOVASCULAR: Heart is irregularly irregular. There is no rub. CHEST: Patient is noted to have rales throughout both lung [place]. ABDOMEN: Nontender, nondistended, obese. BACK: The patient has significant sacral edema but overall does appear improved. EXTREMITIES: The patient has bilateral pitting edema consistent with his anasarca. Immobilizer noted on the right knee. PSYCHIATRIC: Unable to fully assess. DIAGNOSTICS: Labs are as follows: Hematology obtained on 09/20/2016: WBC 6.2, hemoglobin 9.4, hematocrit 29.3, platelet count is 227,000. Chemistry obtained on 09/20/2016: Sodium is 128, potassium 3.7, chloride is 90, carbon dioxide 28, BUN 29, creatinine 1.55, glucose 85, lactic acid is 1.6, calcium is 8.2, bilirubin is 3.5, direct bilirubin is 2.7, AST 18, ALT is 24, alk phos 128, total protein 5.9, albumin 2.5. IMPRESSION AND PLAN: 1. CARDIOGENIC SHOCK. The patient had a wet and cold profile with significant JVP. Patient was hypotensive due to his volume overload. Will continue to diurese. Did forego albumin, as the patient's EF is so poor, he probably could not tolerate this much volume intravascularly. The patient is also hyponatremic. 2. [id number] SYSTOLIC AND DIASTOLIC CONGESTIVE HEART FAILURE. The patient has an EF of 15%. Management as per #1. The patient's AICD has been disabled. 3. ADRENAL INSUFFICIENCY. The patient is quite hypotensive. It could also be a component of this. The patient is on midodrine as well. Will continue his Solu-Cortef for now. 4. HISTORY OF SEPTIC JOINT OF THE RIGHT KNEE. Have resumed IV antibiotics at family recommendation. 5. CHRONIC OBSTRUCTIVE PULMONARY DISEASE. The patient is oxygenating well at this time. He appears comfortable. 6. HYPERTENSION. The patient is actually now hypotensive. 7. ATRIAL FIBRILLATION. The patient is now rate controlled. 8. BENIGN PROSTATIC HYPERPLASIA. Will continue Blake. 9. ACUTE RENAL FAILURE MOST LIKELY DUE TO RENAL CONGESTION FROM HIS HEART FAILURE. 10. HYPONATREMIA. Due to excessive volume. DISPOSITION: The patient is a DNR/DNI. He will go to [place] [facility] on 09/24/2016. Time spent on this followup including assessment, plan, physical examination, and attempt at patient education is 10 minutes. DICTATING PHYSICIAN: OFELIA GALE NP [id number] PHY#: [id number] [id number] JOB#: [id number] ACCT: [id number] cc: >
--- NOTE | 2016-09-23 12:33 | PROGRESS NOTE E ---
Progress Note NAME: TUTU MURRAY : 1940 AGE: 76Y DATE: 09/23/2016 ROOM: 316 SUBJECTIVE: The patient is lying in bed. He is about the same as he was yesterday. The patient will awaken but is nonsensical at this time. The patient has had no reported episodes of vomiting, no diarrhea, and the patient is unable to voice any concerns at this time. REVIEW OF SYSTEMS: A full review of systems cannot be appreciated given the patient's mental status. MEDICATIONS: Have been tailored for comfort. PHYSICAL EXAMINATION: GENERAL: On examination, the patient is a frail, chronically ill-appearing 89-year-old male who is awake, alert, but not able to fully assess orientation. He does not appear to be distressed. VITAL SIGNS: As follows: Temperature is 97.5, pulse 75, respirations 23, blood pressure is 91/56, oxygen saturation is 91% on 2 L nasal cannula. SKIN: Pale, dry. No rash, not diaphoretic. HEENT: Pupils are reactive. JVP to the level of the right clavicle. CARDIOVASCULAR: Heart is irregularly irregular. There is no rub. CHEST: The patient has bilateral rales diffusely. ABDOMEN: Soft and nontender. BACK: The patient does have sacral edema. EXTREMITIES: The patient has anasarca. PSYCHIATRIC: Unable to fully assess. DIAGNOSTICS: Lab values are as follows. Hematology obtained on 09/20/2016: WBCs are 6.2, hemoglobin is 9.4, hematocrit is 29.3, platelet count is 227,000. IMPRESSION AND PLAN: 1. CARDIOGENIC SHOCK. The patient is wet-cold profile. Significant JVP. The patient has been hypotensive due to volume overload. Will continue to diurese. Did forego albumin as the patient's EF was so poor, probably would not be able to tolerate much volume intravascularly. The patient is also hyponatremic. 2. ACUTE ON CHRONIC SYSTOLIC AND DIASTOLIC CONGESTIVE HEART FAILURE WITH AN EF OF 25%. Management as per #1. The patient's AICD has been disabled. 3. ADRENAL INSUFFICIENCY. Continue hydrocortisone as well as midodrine. 4. HISTORY OF SEPTIC JOINT OF THE RIGHT KNEE. The patient was on chronic IV antibiotic therapy and antibiotics. The patient is now comfort care. 5. CHRONIC OBSTRUCTIVE PULMONARY DISEASE APPEARS STABLE AT THIS TIME. 6. HYPERTENSION. The patient is actually hypotensive. 7. ATRIAL FIBRILLATION. The patient is now rate controlled. 8. ACUTE RENAL FAILURE, MOST LIKELY SECONDARY TO RENAL CONGESTION FROM HIS HEART FAILURE. 9. BENIGN PROSTATIC HYPERPLASIA. Will continue Blake. 10. HYPONATREMIA DUE TO EXCESSIVE VOLUME. DISPOSITION: THE PATIENT IS DNR/DNI WITH COMFORT MEASURES. He will go to the [place] in [place] for hospice. Time spent on this followup, including assessment/plan, physical examination, attempted patient education, is 10 minutes. DICTATING PHYSICIAN: OFELIA GALE NP [id number] PHY#: [id number] ID: [id number] JOB#: [id number] ACCT: [id number] cc: >
[2016-09-23] MEDS: MORPHINE SULFATE 10 MG/ML INJ SUBCUT PRN (13:39)
[2016-09-23] MEDS ORDERED: TORSEMIDE 20 MG TABLET PO SCH (18:00)
[2016-09-24] MEDS: GABAPENTIN 300 MG CAPSULE PO SCH (05:09)
[2016-09-24] MEDS: MORPHINE SULFATE 10 MG/ML INJ SUBCUT PRN (08:13)
[2016-09-24 08:42] VITALS: BP 90/42
== END 2016-09-24 08:20 | disposition hospice, inpatient (51) | DRG 291 ==
LOC: ER 08:32 → EH 11:28 → UNDOADMIN 11:28 → EH 12:06 → 3W 14:52
PROVIDERS: ADMIT Internal Medicine; ATTEND Internal Medicine
PROC: 3E0F73Z Introduction of Anti-inflammatory into Respiratory Tract, Via Natural or Artificial Opening (ICD-10-PCS; principal; 2016-09-20)
DX: I50.43 Acute on chronic combined systolic (congestive) and diastolic (congestive) heart failure (principal); J18.9 Pneumonia, unspecified organism; R57.0 Cardiogenic shock; T82.524A Displacement of infusion catheter, initial encounter; I13.0 Hypertensive heart and chronic kidney disease with heart failure and stage 1 through stage 4 chronic kidney disease, or unspecified chronic kidney disease; E27.40 Unspecified adrenocortical insufficiency; M00.9 Pyogenic arthritis, unspecified; N17.9 Acute kidney failure, unspecified; E87.1 Hypo-osmolality and hyponatremia; I42.9 Cardiomyopathy, unspecified; T84.53XD Infection and inflammatory reaction due to internal right knee prosthesis, subsequent encounter; N18.3 Chronic kidney disease, stage 3 (moderate); Z66 Do not resuscitate; I11.0 Hypertensive heart disease with heart failure; R33.9 Retention of urine, unspecified; Z87.440 Personal history of urinary (tract) infections; Z96.0 Presence of urogenital implants; N40.0 Benign prostatic hyperplasia without lower urinary tract symptoms; Z51.5 Encounter for palliative care; G40.909 Epilepsy, unspecified, not intractable, without status epilepticus; M19.90 Unspecified osteoarthritis, unspecified site; I25.10 Atherosclerotic heart disease of native coronary artery without angina pectoris; J44.9 Chronic obstructive pulmonary disease, unspecified; E78.00 Pure hypercholesterolemia, unspecified; I48.91 Unspecified atrial fibrillation; Z95.1 Presence of aortocoronary bypass graft; Z95.810 Presence of automatic (implantable) cardiac defibrillator; Z79.01 Long term (current) use of anticoagulants; Z79.891 Long term (current) use of opiate analgesic; Z88.8 Allergy status to other drugs, medicaments and biological substances; Z79.02 Long term (current) use of antithrombotics/antiplatelets; Z82.49 Family history of ischemic heart disease and other diseases of the circulatory system; E11.9 Type 2 diabetes mellitus without complications; Z90.49 Acquired absence of other specified parts of digestive tract
CPT/HCPCS: 36415; 71010; 80048; 80053; 80202; 82803; 83605; 85025; 87040; 96365; 99285; J0295; J1642; J1720; J1940; J1956; J2270; J3370; J3490; J7030; L1830